=== PATIENT | female | born 1985 | race Caucasian/White ===

== ENCOUNTER 2023-10-10 13:06 | Emergency (ER) | payer BC, SELFPAY ==
[2023-10-10] VITALS (16 sets, daily range): BP systolic 87–113; BP diastolic 71–81; PULSE 75–113; RESP 15–23; TEMP 37.6; O2SAT 85–100; BMI 29.5
--- NOTE | 2023-10-10 13:40 | XR_ITS ---
The [address] [address] Patient Name: CELI JOE MRN: [id number] date: 1985 Sex: F Assigned Patient Location: ER Current Patient Location: ER Accession/Order Number: [id number] Exam Date: 10/10/2023 14:05 Report Date: 10/10/2023 14:39 At the request of: CARLEE GUZMAN Procedure: XR chest 1V EXAMINATION: XR chest 1V HISTORY: chest pain COMPARISON: XR chest 09/04/2018 FINDINGS: LUNGS: Minimal haziness and stranding within right lung base. VASCULATURE: No increased pulmonary vasculature. PLEURA: No pneumothorax, effusion, or pleural thickening. CARDIAC: No cardiomegaly or cardiac silhouette abnormality. MEDIASTINUM: No visible mass or adenopathy. BONES: No fracture or visible bone lesion. OTHER: Negative. XR/XR chest 1V IMPRESSION: 1. Trace amount of right basilar atelectasis versus infiltrates. Electronically authenticated by: UMBERTO JUNG Date: 10/10/2023 14:39
--- NOTE | 2023-10-10 13:41 | ED.CHESTPAI1 ---
HPI - Chest Pain General Chief Complaint: Chest Pain Stated Complaint: CHEST PAIN COVID + Time Seen by Provider: 10/10/23 13:09 Source: patient Mode of arrival: walk-in Limitations: no limitations History of Present Illness HPI narrative: Patient developed symptoms three days ago after exposure to someone with Covid - muscle aches, fatigue, nausea, exertional shortness of breath, anterior chest pain. She said that she is nauseous and having difficulty staying hydrated. She does not have an inhaler at home. Related Data Previous Rx's Medication Instructions Recorded albuterol sulfate 90 mcg/actuation 1 inh inhalation Q6H PRN shortness 10/10/23 aerosol inhaler of breath or wheezing #6.7 grams ondansetron 4 mg disintegrating 4 mg PO Q6H PRN nausea or vomiting 10/10/23 tablet #20 tabs Allergies Allergy/AdvReac Type Severity Reaction Status Date / Time amoxicillin AdvReac Intermediate Verified 10/10/23 13:11 NSAIDS (Non-Steroidal AdvReac Intermediate Verified 10/10/23 13:11 Anti-Inflamma PFSH PFSH Social History Smoking status: Never smoker Exam Narrative Exam Narrative: Nurses notes and vital signs reviewed and patient is not hypoxic. afebrile General: Well-appearing and in no apparent distress. Skin: Warm, dry, no pallor noted. Eye: Pupils are equal, round and EOMI. No scleral icterus. Cardiovascular: Regular Rate and Rhythm without murmur, gallop or rub. Respiratory: No accessory muscle use or respiratory distress. Lungs are clear to auscultation, no wheezing, rales or rhonchi Musculoskeletal: normal ROM, no calf or popliteal tenderness, no lower extremity edema/swelling, Homans negative. GI: Abdomen is soft, non-distended. Normal bowel sounds. No tenderness to palpation. No rebound, guarding, or rigidity noted. Neurological: A&O x4. No cranial nerve dysfunction observed. No truncal ataxia. Moves all extremities. Sensation intact. Psychiatric: Cooperative and interactive. Normal mood and affect. Constitutional Vital Signs, click to edit/add: Last Vital Signs Temp 99.7 F 10/10/23 13:11 Pulse 106 H 10/10/23 15:11 Resp 20 10/10/23 15:11 BP 113/81 10/10/23 14:55 Pulse Ox 96 10/10/23 15:11 O2 Del Method Room Air 10/10/23 13:22 Course Vital Signs Vital signs: Vital Signs Temperature 99.7 F 10/10/23 13:11 Pulse Rate 98 H 10/10/23 13:11 Respiratory Rate 20 10/10/23 13:11 Blood Pressure 109/81 10/10/23 13:11 Pulse Oximetry 99 10/10/23 13:11 Temperature 99.7 F 10/10/23 13:11 Pulse Rate 106 H 10/10/23 15:11 Respiratory Rate 20 10/10/23 15:11 Blood Pressure 113/81 10/10/23 14:55 Pulse Oximetry 96 10/10/23 15:11 Oxygen Delivery Method Room Air 10/10/23 13:22 MDM - Chest Pain MDM Narrative Medical decision making narrative: Patient was placed on cardiac catheterization technologist and EKG obtained. Blood drawn and sent for evaluation. CXR obtained. Patient given NS IVF bolus and IV Zofran. She was also ordered to receive a nebulized albuterol treatment. EKG shows RLL atelectasis, radiologist listed possible infiltrate . No multilobar pneumonia noted. Patient informed of results and was discharged home with prescriptions for albuterol MDI and ODT Zofran. Patient advised to rest, stay at home, practice social distancing, take Motrin and Tylenol for pain and fever if not allergic, stay well hydrated with Gatorade or similar drinks if vomiting or eat as tolerated if not and take any meds as prescribed. Reviewed reasons to return including rapid increase in respiratory rate, shortness of breath, confusion, inability to keep down sips of swallowed liquids for more than 24 hours. Asked patient to encourage any ill contacts to stay home and practice similar advice. Imaging Data Chest x-ray: Radiologist's impression: Patient Name: CELI JOE MRN: [id number] date: 1985 Sex: F Assigned Patient Location: ER Current Patient Location: ER Accession/Order Number: [id number] Exam Date: 10/10/2023 14:05 Report Date: 10/10/2023 14:39 At the request of: CARLEE GUZMAN Procedure: XR chest 1V EXAMINATION: XR chest 1V HISTORY: chest pain COMPARISON: XR chest 09/04/2018 FINDINGS: LUNGS: Minimal haziness and stranding within right lung base. VASCULATURE: No increased pulmonary vasculature. PLEURA: No pneumothorax, effusion, or pleural thickening. CARDIAC: No cardiomegaly or cardiac silhouette abnormality. MEDIASTINUM: No visible mass or adenopathy. BONES: No fracture or visible bone lesion. OTHER: Negative. IMPRESSION: 1. Trace amount of right basilar atelectasis versus infiltrates. Electronically authenticated by: UMBERTO JUNG Date: 10/10/2023 14:39 ECG Data Attestation: I personally reviewed and interpreted this ECG as follows: Interpretation: EKG interpretation: Emergency Department physician interpretation. Normal sinus rhythm at 89bpm. Normal axis, short QTc interval and non-specific T wave changes. No ST segment elevation or depression. Discharge Plan Discharge Chief Complaint: Chest Pain Clinical Impression: COVID, Chest pain, Nausea Patient Disposition: Home, Self-Care Time of Disposition Decision: 14:51 Prescriptions / Home Meds: New albuterol sulfate 90 mcg/actuation HFA aerosol inhaler 1 inh inhalation Q6H PRN (Reason: shortness of breath or wheezing) Qty: 6.7 0RF ondansetron 4 mg tablet,disintegrating 4 mg PO Q6H PRN (Reason: nausea or vomiting) Qty: 20 0RF Instructions: COVID-19 (Coronavirus Disease 2019) (ED), How to Recover from COVID-19 at Home (ED) Stand Alone Forms: Portal Instructions Referrals: Droa Ferraro MD [Primary Care Provider] - 1 week
--- NOTE | 2023-10-10 13:44 | ECG_ITS ---
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
[2023-10-10] MEDS: ONDANSETRON PF 4 MG/2 ML VIAL IV (13:52)
[2023-10-10] MEDS: 0.9 % SODIUM CHLORIDE 1,000 ML 999 ML IV (13:52)
[2023-10-10] MEDS: ALBUTEROL SULFATE 2.5 MG/3 ML VIAL NEB IH (15:11)
--- OUTSIDE RECORDS SUMMARY | 2023-10-29 01:15 | XMS_ITS | CCD ---
Author Name Unknown Address [address] [facility] [facility] [place] [address] Organization [facility] Care Team Providers Care Splitter Hand Name Role Phone DORA JONES Unavailable Unavailable JOSE L, TANESHA S Unavailable Unavailable JOSE L, TANESHA S Unavailable Unavailable JONES, DR DORA Ma Consulting Unavailable JONES, DR DORA Ma Attending Unavailable JONES, DR DORA Ma Admitting Unavailable JONES, DR DORA Ma Primary Care Unavailable JONES, DR DORA Ma Primary Care Unavailable SABA, SYL Admitting Unavailable FABIANA, DR UMBERTO Licona Consulting Unavailable HIGHLANDER, SYL Attending Unavailable HIGHLANDER, SYL Consulting Unavailable SHAIKH PRATHER Consulting Unavailable SHAIKH PRATHER Attending Unavailable JONES, DR DORA Ma Primary Care Unavailable SHAIKH PRATHER Admitting Unavailable JONES, DR DORA Ma Primary Care Unavailable JAYSON MEYER Attending Unavailable JAYSON MEYER Admitting Unavailable JAYSON MEYER Consulting Unavailable Joel Cole Consulting Unavailable JONES, DR DORA Ma Primary Care Unavailable JAYSON MEYER Attending Unavailable JAYSON MEYER Admitting Unavailable TERRI CURRY Attending Unavailable JONES, DR DORA Ma Primary Care Unavailable TERRI CURRY Admitting Unavailable GILBERT, DR DIANA Beckwith Consulting Unavailable TERRI CURRY Consulting Unavailable JONES, DR DORA Ma Consulting Unavailable JONES, DR DORA Ma Attending Unavailable JONES, DR DORA Ma Admitting Unavailable JONES, DR DORA Ma Primary Care Unavailable JONES, DR DORA Ma Consulting Unavailable JONES, DR DORA Ma Attending Unavailable JONES, DR DORA Ma Admitting Unavailable MISC, DR MORSE Consulting Unavailable MISC, DR MORSE Attending Unavailable MISC, DR MORSE Admitting Unavailable JONES, DR DORA Ma Primary Care Unavailable JONES, DR DORA Ma Primary Care Unavailable MIKE CURRY Admitting Unavailable MIKE CURRY Consulting Unavailable MIKE CURRY Attending Unavailable JONES, DR DORA Ma Consulting Unavailable JONES, DR DORA Ma Attending Unavailable JONES, DR DORA Ma Admitting Unavailable JONES, DR DORA Ma Primary Care Unavailable JONES, DR DORA Ma Primary Care Unavailable PALLAVI DILLON Consulting Unavailable PALLAVI DILLON Attending Unavailable PALLAVI DILLON Admitting Unavailable MISC, DR MORSE Attending Unavailable MISC, DR MORSE Admitting Unavailable JONES, DR DORA Ma Referring Unavailable JONES, DR DORA aM Primary Care Unavailable MISC, DR MORSE Consulting Unavailable ZIEBER, DR UMBERTO [place]icon[place] Consulting Unavailable JONES, DR DORA Ma Primary Care Unavailable JAYSON MEYER Attending Unavailable JAYSON MEYER Admitting Unavailable JAYSON MEYER Consulting Unavailable MD Dora Jones Primary Care Provider JAGDISH Alanis Attending Provider Dora Jones Primary Care Unavailable Patel Vasquez Admitting UnavailPatel Bell Attending Unavailken e Sammi Alanis Attending Unavailab Dora Elias Primary Care Unavailable Sammi Alanis Admitting Unavailab Dora Elias Unavailable KariHilary leija Unavailable Allergies Allergy Classification Reported Allergen(s) Allergy Type Date of Onset Reaction(s) Facility (1 source) NSAIDs Drug allergy (disorder) [facility] Repository (1 source) NSAIDs Drug allergy (disorder) 02-17-20 [facility] Repository (8 sources) NSAIDs Propensity to adverse reactions kidney disease [employer] Other (8 sources) Penicillin Drug Allergy Unknown [employer] Other (8 sources) SUMAtriptan Drug Allergy Unknown [employer] Other (4 sources) metroNIDAZOLE Drug Allergy 01-10-20 18 Unknown [employer] Other (4 sources) Pseudoephedrine Drug Allergy 02-16-20 19 Unknown [employer] Other (1 source) Allergies Reconciled Propensity to adverse reactions Unknown [employer] Other (1 source) patient allergy list reviewed by nurse or physicia Propensity to adverse reactions 03-16-20 Comment:Done [employer] Other Medications Current Medications Medication Drug Class(es) Dates Sig (Normalized) Sig (Original) ALPRAZolam 0.25 mg oral tablet (2 sources) Benzodiazepine Start: 05-22-2023 take 1 tablet by mouth twice daily as needed ALPRAZolam 0.25 MG 1 tablet Orally bid prn for 10 days May, Active azithromycin 250 mg oral tablet (10 sources) Macrolide Antimicrobial Start: 03-10-2023 Azithromycin 250 MG Take 2 tablets on first day then 1 tablet daily for 4 days Orally as directed for 5 Sep, Active Start: 03-10-2023 Start: 12-12-2022 Azithromycin 2 50 MG as directed Orally 2 tabs po today, then 1 tab daily x 4 more days for Dec, Active lisdexamfetamine dimesylate 40 mg oral capsule (3 sources) Central Nervous System Stimulant take 1 capsule by mouth every twenty-four hours Vyvanse 40 MG 1 capsule in the morning Orally Once a day Active modafinil 200 mg oral tablet (5 sources) Sympathomimetic-lik e Agent take 1 tablet by mouth every twenty-four hours Modafinil 200 MG 1 tablet once a day Active Modafinil Active Naltrexone (8 sources) Opioid Antagonist Naltrexone Activ e sertraline 50 mg oral tablet (14 sources) Serotonin Reuptake Inhibitor take 1 tablet by mouth every twenty-four hours Zoloft 25 MG 1 tablet Orally Once a day Active take 1 tablet by jasvir th every twenty-four hours Zoloft 50 MG 1 tablet Orally Once a day Active Completed/Discontinued Medications Medication Drug Class(es) Dates Sig (Normalized) Sig (Original) cyclobenzaprine hydrochloride 10 mg oral tablet (2 sources) Muscle Relaxant Start: 08-05-2022 take 1 tablet by mouth three times daily as needed for muscle spasms Cyclobenzaprine HCl 10 MG 1 tab(s) Orally 3 times a day prn muscle spasms Jul, Not-Taking fluconazole 150 mg oral tablet (6 sources) Azole Antifungal Start: 03-10-2023 take 1 tablet by mouth once Diflucan 150 MG 1 tablet Orally once for 10 days March, Not-Taking Start: 03-10-2023 methylPREDNISolone 4 mg oral tablet (8 sources) Corticosteroid Start: 03-10-2023 methylPREDNISo lone 4 MG as directed Orally for 6 days March, Not-Taking Start: 08-05-2022 Medrol 4 MG as directed Orally as directed for 6 days Jul, Not-Taking triamcinolone acetonide 40 mg/ml injectable suspension (8 sources) Corticosteroid Start: 08-05-2022 Kenalog-40 Jul, 40 mg Start: 08-05-2022 Ubrelvy (2 sources) Ubrelvy Not-Taki ng Problems Active Problems Problem Classification Problem Date Documented Da te Episodic/Chronic Anxiety disorders (1 source) Generalized anxiety disorder; Translations: [Generalized anxiety disorder] Chronic Chronic kidney disease (8 sources) Chronic kidney disease; Translations: [Chronic kidney disease, unspecified] Chronic Disorders of lipid metabolism (1 source) Hyperlipidemia; Translations: [Hyperlipidemia, unspecified] Chronic Fluid and electrolyte disorders (2 sources) Hypokalemia; Translations: [Hypokalemia] Onset: 02-17-2018 Episodic Fracture of lower limb (1 source) Stress fracture, right foot, subsequent encounter for fracture with routine healing; Translations: [Stress fracture, right foot, subsequent encounter for fracture with routine healing] Episodic Fracture of lower limb (1 source) Stress fracture, left foot, subsequent encounter for fracture with routine healing; Translations: [Stress fracture, left foot, subsequent encounter for fracture with routine healing] Episodic Genitourinary symptoms and ill-defined conditions (1 source) Proteinuria; Translations: [Proteinuria, unspecified] Episodic Headache; including migraine (5 sources) Chronic migraine without aura, not intractable, without status migrainosus; Translations: [Migraine with aura, not intractable, without status migrainosus] Onset: 11-16-2020 Chronic Immunizations and screening for infectious disease (5 sources) Contact with and (suspected) exposure to other viral communicable diseases; Translations: [Vaccination given] Onset: 10-21-2020 Episodic Joint disorders and dislocations; trauma-related (4 sources) Unspecified internal derangement of right knee; Translations: [UNS INTERNAL DERANGEMENT RIGHT KNEE] Onset: 09-11-2020 Chronic Menstrual disorders (1 source) Excessive and frequent menstruation; Translations: [Excessive and frequent menstruation with regular cycle] Chronic Mood disorders (1 source) Dysthymia; Translations: [Dysthymic disorder] Chronic Multiple sclerosis (5 sources) Multiple sclerosis; Translations: [MULTIPLE SCLEROSIS] Onset: 12-23-2020 Chronic Nephritis; nephrosis; renal sclerosis (7 sources) 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; Translations: [Nephrotic syndrome] Onset: 11-29-2016 Chronic Other aftercare (1 source) History and physical examination, follow-up; Translations: [Encounter for follow-up examination after completed treatment for conditions other than malignant neoplasm] Episodic Other connective tissue disease (5 sources) Pain in left foot; Translations: [PAIN IN LEFT FOOT] Onset: 06-05-2021 Episodic Other connective tissue disease (4 sources) Pain in right foot; Translations: [PAIN IN RIGHT FOOT] Onset: 05-22-2021 Episodic Other connective tissue disease (5 sources) Neuralgia and neuritis, unspecified; Translations: [NEURALGIA AND NEURITIS UNSPECIFIED] Onset: 05-18-2021 Episodic Other connective tissue disease (1 source) Neuralgia; Translations: [Neuralgia and neuritis, unspecified] Episodic Other eye disorders (1 source) Tear film insufficiency; Translations: [Dry eye syndrome of bilateral lacrimal glands] Episodic Other gastrointestinal disorders (1 source) Diarrhea; Translations: [Diarrhea, unspecified] Episodic Other liver diseases (8 sources) Steatosis of liver; Translations: [Fatty (change of) liver, not elsewhere classified] Chronic Other nutritional; endocrine; and metabolic disorders (1 source) Overweight; Translations: [Overweight] Episodic Other nutritional; endocrine; and metabolic disorders (1 source) Body mass index 25-29 - overweight; Translations: [Body mass index (BMI) 28.0-28.9, adult] Episodic Other screening for suspected conditions (not mental disorders or infectious disease) (10 sources) Encounter for screening for lipoid disorders; Translations: [Other abnormal findings on diagnostic imaging of central nervous system] Onset: 02-23-2021 Episodic Other upper respiratory infections (1 source) Chronic sinusitis; Translations: [Chronic sinusitis, unspecified] Chronic Other upper respiratory infections (8 sources) Acute maxillary sinusitis, unspecified; Translations: [Acute sinusitis] Onset: 11-19-2013 Episodic Otitis media and related conditions (3 sources) Acute secretory otitis media; Translations: [Other acute nonsuppurative otitis media, right ear] Onset: 09-04-2018 Episodic Residual codes; unclassified (4 sources) Localized edema; Translations: [LOCALIZED EDEMA] Onset: 05-18-2021 Episodic Residual codes; unclassified (1 source) Family history of diabetes mellitus; Translations: [Family history of diabetes mellitus] Episodic Residual codes; unclassified (1 source) Tobacco user; Translations: [Tobacco use] Episodic Unclassified (1 source) G37.9 - Demyelinating disease of central nervous system, unspecified; Translations: [G37.9 - Demyelinating disease of central nervous system, unspecified] Onset: 09-27-2021 Past or Other Problems Problem Classification Problem Date Documented Date Episodic/Chronic Acute and chronic tonsillitis (1 source) Acute tonsillitis; Translations: [Acute tonsillitis, unspecified] Onset: 04-18-2014 Episodic Acute bronchitis (1 source) Acute bronchitis; Translations: [Acute bronchitis, unspecified] Onset: 01-09-2018 Episodic Bacterial infection; unspecified site (1 source) Bacterial infectious disease; Translations: [Bacterial infection, unspecified, in conditions classified elsewhere and of unspecified site] Onset: 01-21-2017 Episodic Disorders of teeth and jaw (1 source) Other specified disorders of temporomandibular joint; Translations: [Temporomandibular joint disc] Onset: 2014 Episodic Influenza (1 source) Upper respiratory tract infection due to Influenza; Translations: [Influenza due to unidentified influenza virus with other respiratory manifestations] Onset: 12-06-2013 Episodic Malaise and fatigue (5 sources) Other fatigue; Translations: [Fatigue] Onset: 08-21-2015 Episodic Nonspecific chest pain (1 source) Chest pain; Translations: [Chest pain, unspecified] Onset: 02-17-2018 Episodic Other lower respiratory disease (1 source) Cough; Translations: [Cough, unspecified] Onset: 09-04-2018 Episodic Other nervous system disorders (1 source) Ataxia, unspecified; Translations: [ATAXIA UNSPECIFIED] Onset: 02-23-2021 Episodic Other nervous system disorders (1 source) Paresthesia of skin; Translations: [PARESTHESIA OF SKIN] Onset: 01-01-2021 Episodic Other skin disorders (1 source) Localized swelling, mass and lump, unspecified; Translations: [Localized mass] Onset: 04-07-2015 Episodic Residual codes; unclassified (1 source) History of exposure to hazardous bodily fluids; Translations: [Personal history of contact with and (suspected) exposure to potentially hazardous body fluids] Onset: 10-10-2015 Episodic Residual codes; unclassified (1 source) Flushing; Translations: [Flushing] Onset: 07-30-2018 Episodic Unclassified (2 sources) Acquired absence of both cervix and uterus; Translations: [Acquired absence of both cervix and uterus] Onset: 10-28-2017 Episodic Unclassified (1 source) Vaginal yeast infection B37.31 Unclassified (1 source) Suspected COVID-19 virus infection Z20.822 Viral infection (1 source) COVID-19 Results Test Name Value Interpretation Reference Range Facil ity COVID Quick Testingon 2022 Result Negative [facility] [employer] Other COVID/FLU/RSV RT-PCRon 10-09 SARS-CoV-2 (COVID-19) RNA NA A+probe Ql (Unsp spec) Positive [facility] Other COVID/FLU/RSV RT-PCR Negative [facility] [employer] Other MR head/brain wo/w conon MR head/brain wo/w con [facility] [place] [address] MRI Report Signed Patient: Celi Madrid MR#: [id number] : 1985 Acct:[id number] Age/Sex: 36 / F ADM Date: 09/12/22 Loc: MR Room: Type: [facility] Attending Dr: Sammi Alanis APRN, [employer]-C Copies to: Sammi Alanis APRN, CNP Ordering Provider: Sammi Alanis APRN, CNP Date of Service: 09/12/22 MR/MR head/brain wo/w con: G43.909, G37.9 MR head/brain wo/w con 09/12/2022 9:01 PM SIGN AND SYMPTOMS: History of demyelinating disease/clinically isolated syndrome, migraine headaches. Numbness and tingling in bilateral arms PROTOCOL: Multiplanar multisequence MR images of the brain were obtained with and without IV contrast CONTRAST: 14 mL of intravenous ProHance COMPARISON: 09/27/2021 FINDINGS: Extra axial spaces: Age appropriate. Hemorrhage: None. Ventricular system: Within normal limits. Basal cisterns: Within normal limits and not effaced. Cerebral parenchyma: There is a dilated perivascular space in the left deep leslie nuclei. This is unchanged. There are punctate T2/T2 FLAIR hyperintense signal in the right frontal lobe. These are unchanged. No abnormal postcontrast enhancement. Midline shift: None.. Cerebellum: There is 4 mm of downward displacement of the cerebellar tonsils. This is unchanged. Brainstem: Within normal limits. OTHER: Calvarium: Normal marrow signal. Vascular system: Satisfactory flow voids within the anterior and posterior circulation. Visualized Paranasal sinuses: Within normal limits. Visualized Orbits: Within normal limits. Visualized upper cervical spine: Within normal limits. Sella and skull base: Within normal limits. MR/MR head/brain wo/w con IMPRESSION: There are punctate T2/T2 FLAIR hyperintense signal in the right frontal lobe. These are unchanged. No abnormal postcontrast enhancement or diffusion restriction. There is 4 mm of downward displacement of the cerebellar tonsils. This is unchanged. Impression dictated by: Kevin Lombardo M.D.09/13/2022 12:54 PM Dictation Location: [place] [address] Transcribed By: [facility] 09/13/22 1254 Dictated By: Kevin Lombardo II, MD 09/13/22 1238 Signed By: 09/13/22 1254 [facility] ISTAT XRay CREon 09-12-2022 Creatinine [Mass/Vol] 0.7 mg/dL Normal 0.6-1.3 [facility] Comment on above: Result Comment: ER/E SD physician is notified/shown all ISTAT results. Critical values may be confirmed by laboratory testing if deemed necessary by ER attending doctor. Performed By: #### I SCRE #### [address] Point of Care testing , ISTAT GFR ( > 60 Normal [facility] Comment on above: Result Comment: GFR estimated reference range: According to KDOQI guidelines, <60 ml/min/1.73m2 is sufficient to diagnose a patient with chronic kidney disease. PERFORMED BY: [place] [address] PATHOLOGIST MECHANICAL DEVELOPER PROVER NANCY BROWNING M.D. Performed By: #### I SCRE #### [facility] [address] [place] [address] Point of Care testing , ISTAT GFR (Non- Am > 60 Normal [facility] Comment on above: Performed By: #### I SCRE #### [facility] [address] [place] [address] Point of Care testing , MR head/brain wo/w conon MR head/brain wo/w con [facility] Main [place] [address] [place] [address] MRI Report Signed Patient: Celi Madrid MR#: [id number] : 1985 Acct:[id number] Age/Sex: 35 / F ADM Date: 09/27/21 Loc: MR Room: Type: [facility] Attending Dr: Patel Vasquez DO Ordering Provider: Max Vasquez DO Date of Service: 09/27/21 MR/MR head/brain wo/w con: G37.9 Copies to: Max Vasquez DO MR head/brain wo/w con 09/27/2021 11:15 AM SIGN AND SYMPTOMS: Headaches, unsteady gait, frequent falls, bilateral arm numbness, 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 Hemorrhage: None. Ventricular system: Within normal limits. Basal cisterns: Within normal limits and not effaced. Cerebral parenchyma: Similar scattered T2 and T2 FLAIR hyperintense foci are noted in the subcortical white matter, again predominantly in the frontal lobes. No new lesions are identified. There is no diffusion restriction or abnormal postcontrast enhancement to suggest active demyelination. There is a choroid fissure cyst versus dilated perivascular space on the left. This is unchanged. Midline shift: None.. Cerebellum: There is 5 mm of downward displacement of the cerebellar tonsils. This is similar to the prior study. Brainstem: Within normal limits. OTHER: Calvarium: Normal marrow signal. Vascular system: Satisfactory flow voids within the anterior and posterior circulation. Visualized Paranasal sinuses: Within normal limits. Visualized Orbits: Within normal limits. Visualized upper cervical spine: Within normal limits. Sella and skull base: Within normal limits. MR/MR head/brain wo/w con IMPRESSION: Similar scattered T2 and T2 FLAIR hyperintense foci are noted in the subcortical white matter, again predominantly in the frontal lobes. No new lesions are identified. There is no diffusion restriction or abnormal postcontrast enhancement to suggest active demyelination. There is a choroid fissure cyst versus dilated perivascular space on the left. This is unchanged. There is 5 mm of downward displacement of the cerebellar tonsils. This is similar to the prior study. Impression dictated by: Kevin Lombardo M.D.09/27/2021 2:13 PM Dictation Location: [place] [address] Transcribed By: [facility] 09/27/21 1413 Dictated By: Kevin Lombardo II, MD 09/27/21 1359 Signed By: 09/27/21 1413 [facility] CBC AUTO DIFFon 08-14-2021 BASO # 0.0 103/ul Normal 0.0-0.1 [facility] Comment on above: Performed By: #### C MP, LIPID #### [facility] [address] [place] [address] Dr. Sd Jarrett Basophils/100 WBC (Bld) 0.5 % Normal 0.2-2.0 [facility] Comment on above: Performed By: #### C MP, LIPID #### [facility] [address] [place] [address] Dr. Sd Jarrett EO # 0.1 103/ul Normal 0.0-0.7 [facility] Comment on above: Performed By: #### C MP, LIPID #### [facility] [address] [place] [address] Dr. Sd Jarrett Eosinophils/100 WBC (Bld) 1.3 % Normal 0.9-7.0 [facility] Comment on above: Performed By: #### C MP, LIPID #### [facility] [address] [place] [address] Dr. Sd Jarrett Erythrocyte distribution wid th (RBC) [Ratio] 12.5 % Normal 11.0-15.0 [facility] Comment on above: Performed By: #### C MP, LIPID #### [facility] [address] [place] [address] Dr. Sd Jarrett Hematocrit (Bld) [Volume fraction] 40.3 % Normal 3 6.0-48.0 [facility] Comment on above: Performed By: #### C MP, LIPID #### [facility] [address] [place] [address] Dr. Sd Jarrett Hemoglobin (Bld) [Mass/Vol] 12.8 g/dL Normal 12.0-16. 0 [facility] Comment on above: Performed By: #### C MP, LIPID #### [facility] [address] [place] [address] Dr. Sd Jarrett IG # 0.03 10e3/ul Normal 0.00-0.03 [facility] Comment on above: Performed By: #### C MP, LIPID #### [facility] [address] [place] [address] Dr. Sd Jarrett IG % 0.3 % Normal 0.0-0.5 [facility] Comment on above: Performed By: #### C MP, LIPID #### [facility] [address] [place] [address] Dr. Sd Jarrett LYMPH # 2.3 103/ul Normal 1.2-3.8 [facility] Comment on above: Performed By: #### C MP, LIPID #### [facility] [address] [place] [address] Dr. Sd Jarrett Lymphocytes/100 WBC (Bld) 26.7 % Normal 20.5-60.0 [facility] Comment on above: Performed By: #### C MP, LIPID #### [facility] [address] [place] [address] Dr. Sd Jarrett MANUAL DIFF REQ NO Normal [facility] Comment on above: Performed By: #### C MP, LIPID #### [facility] [address] [place] [address] [address] Sd Jarrett MCH (RBC) [Entitic mass] 29.3 pg Normal 26.7-34.0 [facility] Comment on above: Performed By: #### C MP, LIPID #### [facility] [address] [place] [address] Dr. Sd Jarrett MCHC (RBC) [Mass/Vol] 31.8 g/dL Normal 29.9-35.2 [facility] Comment on above: Performed By: #### C MP, LIPID #### [facility] [address] [place] [address] Dr. Sd Jarrett MCV (RBC) [Entitic vol] 92.2 fL Normal 81.0-99.0 [facility] Comment on above: Performed By: #### C MP, LIPID #### [facility] [address] [place] [address] Dr. Sd Jarrett MONO # 0.5 103/ul Normal 0.3-0.[address] [facility] Comment on above: Performed By: #### C MP, LIPID #### [facility] [address] [place] [address] Dr. Sd Jarrett Monocytes/100 WBC (Bld) 5.8 % Normal 1.7-12.0 [facility] Comment on above: Performed By: #### C MP, LIPID #### [facility] [address] [place] [address] Dr. Sd Jarrett NEUT # 5.6 103/ul Normal 1.4-6.[address] [facility] Comment on above: Performed By: #### C MP, LIPID #### [facility] [address] [place] [address] Dr. Sd Jarrett Neutrophils/100 WBC (Bld) 65.4 % Normal 43.0-75.0 [facility] Comment on above: Performed By: #### C MP, LIPID #### [facility] [address] [address] [address] Sd Jarrett Platelet mean volume (Bld) [Entitic vol] 9.9 fL Normal 9.5-13.5 [facility] Comment on above: Performed By: #### C MP, LIPID #### [facility] [address] [address] [address] Sd Jarrett PLT 315 103/ul Normal 150-[address] [facility] Comment on above: Performed By: #### C MP, LIPID #### [facility] [address] [place] [address] Dr. Sd Jarrett RBC 4.37 106/ul Normal 4.20-5.40 [facility] Comment on above: Performed By: #### C MP, LIPID #### [facility] [address] [place] [address] Dr. Sd Jarrett WBC 8.6 103/ul Normal 4.0-11.0 [facility] Comment on above: Performed By: #### C MP, LIPID #### [facility] [address] [place] [address] Dr. Sd Jarrett LIPID PROFILEon 08-14-2021 CHOL-HDL RATIO NORM SEE BELOW Normal [facility] Comment on above: Result Comment: 3.3 - 4.4 LOW RISK 4.4 - 7.1 AVERAGE RISK 7.1 - 11.0 MODERATE RISK >11.0 HIGH RISK Performed By: #### C MP, LIPID #### [facility] [address] [place] [address] Dr. Sd Jarrett Cholesterol [Mass/Vol] 294 mg/dL Critically high <=200 [facility] Comment on above: Performed By: #### C MP, LIPID #### [facility] [address] [place] [address] Dr. Sd Jarrett Cholesterol in HDL [Mass/Vol] 64 mg/dL Normal [facility] Comment on above: Performed By: #### C MP, LIPID #### [facility] [address] [address] [address] Sd Jarrett Cholesterol in LDL [Mass/Vol] 192.4 mg/dL Normal [facility] Comment on above: Performed By: #### C MP, LIPID #### [facility] [address] [place] [address] Dr. Sd Jarrett Cholesterol.total/Cholestero l in HDL [Mass ratio] 4.6 {ratio} Normal The [facility] Comment on above: Performed By: #### C MP, LIPID #### [facility] [address] [place] [address] Dr. Sd Jarrett HDL NORMAL > or = 60 mg/dl - LO W CARDIOVASCULAR RISK <40 mg/dl - HIGH CARDIOVASCULAR RISK Normal The [facility] Comment on above: Performed By: #### C MP, LIPID #### [facility] [address] [place] [address] Dr. Sd Jarrett LDL CALC NORMAL SEE BELOW Normal The [facility] Comment on above: Result Comment: <100 mg/dl OPTIMAL 100 - 129 mg/dl NEAR OR ABOVE OPTIMAL 130 - 159 mg/dl BORDERLINE HIGH 160 - 189 mg/dl HIGH >190 mg/dl VERY HIGH Performed By: #### C MP, LIPID #### [facility] [address] [place] [address] Dr. Sd Jarrett Triglyceride [Mass/Vol] 188 mg/dL Critically high <=150 [facility] Comment on above: Performed By: #### C MP, LIPID #### [facility] [address] [place] [address] Dr. Sd Jarrett VLDL CALC 37.6 mg/dL Normal The [facility] Comment on above: Performed By: #### C MP, LIPID #### [facility] [address] [address] [address] Sd Jarrett PROF 14(COMP METB)on 021 Albumin [Mass/Vol] 3.4 g/dL Critically low 3.5-5.0 Th e [facility] Comment on above: Performed By: #### C MP, LIPID #### [facility] [address] [place] [address] Dr. Sd Jarrett Albumin/Globulin [Mass ratio] 0.9 {ratio} Normal [facility] Comment on above: Performed By: #### C MP, LIPID #### [facility] [address] [place] [address] Dr. Sd Jarrett ALP [Catalytic activity/Vol] 69 U/L Normal 38-126 [facility] Comment on above: Performed By: #### C MP, LIPID #### [facility] [address] [place] [address] Dr. Sd Jarrett ALT [Catalytic activity/Vol] 32 U/L Normal 9-52 [facility] Comment on above: Performed By: #### C MP, LIPID #### [facility] [address] [place] [address] Dr. Sd Jarrett Anion gap [Moles/Vol] 9.4 mmol/L Normal [facility] Comment on above: Performed By: #### C MP, LIPID #### [facility] [address] [place] [address] Dr. Sd Jarrett AST [Catalytic activity/Vol] 16 U/L Normal 14-36 [facility] Comment on above: Performed By: #### C MP, LIPID #### [facility] [address] [place] [address] Dr. Sd Jarrett Bilirubin [Mass/Vol] 0.2 mg/dL Normal 0.2-1.3 [facility] Comment on above: Performed By: #### C MP, LIPID #### [facility] [address] [place] [address] Dr. Sd Jarrett Calcium [Mass/Vol] 8.9 mg/dL Normal 8.4-10.2 [facility] Comment on above: Performed By: #### C MP, LIPID #### [facility] [address] [place] [address] Dr. Sd Jarrett Chloride [Moles/Vol] 100 mmol/L Normal 98-107 [facility] Comment on above: Performed By: #### C MP, LIPID #### [facility] [address] [place] [address] Dr. Sd Jarrett CO2 [Moles/Vol] 30.5 mmol/L Critically high 22.0-30.0 [facility] Comment on above: Performed By: #### C MP, LIPID #### [facility] [address] [address] [address] Sd Jarrett Creatinine [Mass/Vol] 0.60 mg/dL Normal 0.52-1.04 [facility] Comment on above: Performed By: #### C MP, LIPID #### [facility] [address] [address] [address] Sd Jarrett EGFR-AF NEPALESE >60 Normal >=60 [facility] Comment on above: Performed By: #### C MP, LIPID #### [facility] [address] [address] [address] Sd Jarrett EGFR-NON AF NEPALESE >60 Normal >=60 [facility] Comment on above: Performed By: #### C MP, LIPID #### [facility] [address] [address] [address] Sd Jarrett Globulin (S) [Mass/Vol] 4.0 g/dL Normal [facility] [place] Comment on above: Performed By: #### C MP, LIPID #### [facility] [address] [address] [address] Sd Jarrett Glucose [Mass/Vol] 76 mg/dL Normal 74-106 [facility] Comment on above: Performed By: #### C MP, LIPID #### [facility] [address] [address] [address] Sd Jarrett Potassium [Moles/Vol] 3.9 mmol/L Normal 3.4-5.0 [facility] Comment on above: Performed By: #### C MP, LIPID #### [facility] [address] [address] [address] Sd Jarrett Protein [Mass/Vol] 7.4 g/dL Normal 6.1-8.2 [facility] Comment on above: Performed By: #### C MP, LIPID #### [facility] [address] [address] [address] Sd Jarrett Sodium [Moles/Vol] 136 mmol/L Critically low 137-145 Th e [facility] Comment on above: Performed By: #### C MP, LIPID #### [facility] [address] [place], [place] [address] Dr. Sd Jarrett Urea nitrogen [Mass/Vol] 10.0 mg/dL Normal 7.0-17.0 [facility] Comment on above: Performed By: #### C MP, LIPID #### [facility] [address] [place], [place] [address] Dr. Sd Jarrett Urea nitrogen/Creatinine [Mass ratio] 16.7 mg/mg Normal [facility] Comment on above: Performed By: #### C MP, LIPID #### [facility] [address] [place], [place] [address] Dr. Sd Jarrett XR FOOT LIAM MIN 3 VIEWSon XR FOOT LIAM MIN 3 VIEWS EXAMINATION: XR FOOT LIAM MIN 3 VIEWS HISTORY: Pain in both feet COMPARISON: XR foot bilateral 06/12/2021 FINDINGS: RIGHT FINDINGS: BONES: Increasing mild cortical thickening involving the medial mid diaphysis of the third metatarsal. Normal alignment is maintained. SOFT TISSUES: No visible soft tissue swelling. OTHER: Negative. LEFT FINDINGS: BONES: No significant arthropathy or acute abnormality. SOFT TISSUES: No visible soft tissue swelling. OTHER: Negative. IMPRESSION: RIGHT CONCLUSION: 1. Healing stress fracture of third metatarsal. LEFT CONCLUSION: 1. No acute bone abnormality. Electronically authenticated by: UMBERTO JUNG Date: 2021-07-05 14:12 Normal [facility] XR FOOT LIAM MIN 3 VIEWSon XR FOOT LIAM MIN 3 VIEWS EXAM: XR FOOT LIAM MIN 3 VIEWS HISTORY: Pain in both feet COMPARISON: AP, oblique and lateral views of bilateral foot were obtained TECHNIQUE: AP, oblique, calcaneal and lateral views of bilateral feet were obtained. FINDINGS: Right foot: There is stress fracture at the mid diaphysis of the third metatarsal bone as seen by periosteal reaction, immediately. Left foot: No evidence of an acute fracture, subluxation or significant degenerative changes. IMPRESSION: Right foot:Stress fracture is seen at the mid diaphysis of the third metatarsal bone. Left foot: Unremarkable Electronically authenticated by: JOEL COLE Date: 2021-06-12 15:05 Normal The [facility] XR FOOT LIAM MIN 3 VIEWSon XR FOOT LIAM MIN 3 VIEWS EXAMINATION: XR FOOT LIAM MIN 3 VIEWS HISTORY: Pain in both feet ; acute dorsal midfoot swelling, heel pain when weightbearing COMPARISON: No relevant comparison available. FINDINGS: RIGHT FINDINGS: BONES: No significant arthropathy or acute abnormality. SOFT TISSUES: No visible soft tissue swelling. OTHER: Negative. LEFT FINDINGS: BONES: No significant arthropathy or acute abnormality. SOFT TISSUES: No visible soft tissue swelling. OTHER: Negative. IMPRESSION: RIGHT CONCLUSION: Normal examination. LEFT CONCLUSION: Normal examination. Electronically authenticated by: UMBERTO JUNG Date: 2021-05-23 08:04 Normal The [facility] CBC AUTO DIFFon 05-18-2021 BASO # 0.0 103/ul Normal 0.0-0.1 [facility] Comment on above: Performed By: #### C BC #### [facility] [address] [place] [address] Woody Duenas Basophils/100 WBC (Bld) 0.4 % Normal 0.2-2.0 [facility] [place] Comment on above: Performed By: #### C BC #### [facility] [address] [place] [address] Woody Duenas EO # 0.1 103/ul Normal 0.0-0.[address] [facility] Comment on above: Performed By: #### C BC #### [facility] [address] [place], [place] [address] Woody Duenas Eosinophils/100 WBC (Bld) 1.4 % Normal 0.9-7.0 [facility] Comment on above: Performed By: #### C BC #### [facility] [address] [place], [place] [address] Woody Duenas Erythrocyte distribution wid th (RBC) [Ratio] 12.4 % Normal 11.0-15.0 [facility] Comment on above: Performed By: #### C BC #### [facility] [address] [place] [address] Woody Duenas Hematocrit (Bld) [Volume fraction] 40.1 % Normal 3 6.0-48.0 [facility] Comment on above: Performed By: #### C BC #### [facility] [address] [place], [place] [address] Woody Yulissa Hemoglobin (Bld) [Mass/Vol] 13.2 g/dL Normal 12.0-16. 0 [facility] Comment on above: Performed By: #### C BC #### [facility] [address] [id number] Woody Yulissa IG # 0.03 10e3/ul Normal 0.00-0.03 [facility] Comment on above: Performed By: #### C BC #### [facility] [address] [id number] Woody Yulissa IG % 0.4 % Normal 0.0-0.[address] [facility] Comment on above: Performed By: #### C BC #### [facility] [address] [place], [place] [id number] Woody Yulissa LYMPH # 2.1 103/ul Normal 1.2-3.8 [facility] Comment on above: Performed By: #### C BC #### [facility] [address] [place], [place] [id number] Woody Duenas Lymphocytes/100 WBC (Bld) 29.1 % Normal 20.5-60.0 [facility] Comment on above: Performed By: #### C BC #### [facility] [address] [place], [place] [id number] Woody Duenas MANUAL DIFF REQ NO Normal [facility] Comment on above: Performed By: #### C BC #### [facility] [address] [place] [address] Woody Yulissa MCH (RBC) [Entitic mass] 29.5 pg Normal 26.7-34.0 [facility] Comment on above: Performed By: #### C BC #### [facility] [address] [phone] Woodyanika Mclcouden MCHC (RBC) [Mass/Vol] 32.9 g/dL Normal 29.9-35.2 [facility] Comment on above: Performed By: #### C BC #### [facility] [address] [place], [place] [address] Woody Yulissa MCV (RBC) [Entitic vol] 89.7 fL Normal 81.0-99.0 [facility] [place] Comment on above: Performed By: #### C BC #### [facility] [address] [phone] Woody Yulissa MONO # 0.4 103/ul Normal 0.3-0.8 The [facility] Comment on above: Performed By: #### C BC #### [facility] [address] [phone] Woody Yulissa Monocytes/100 WBC (Bld) 5.6 % Normal 1.7-12.0 [facility] [place] Comment on above: Performed By: #### C BC #### [facility] [address] [place] [address] Woody Yulissa NEUT # 4.6 103/ul Normal 1.4-6.5 The [facility] Comment on above: Performed By: #### C BC #### [facility] [address] [place], [place] [address] Woody Yulissa Neutrophils/100 WBC (Bld) 63.1 % Normal 43.0-75.0 [facility] Comment on above: Performed By: #### C BC #### [facility] [address] [place], [place] [id number] Woody Yulissa Platelet mean volume (Bld) [Entitic vol] 9.3 fL Critically low 9.5-13.5 The [facility] Comment on above: Performed By: #### C BC #### [facility] [address] [place], [place] [id number] Woody Yulissa PLT 278 103/ul Normal 150-450 The [facility] Comment on above: Performed By: #### C BC #### [facility] [address] [place], [place] [phone] Woody Yulissa RBC 4.47 106/ul Normal 4.20-5.40 [facility] Comment on above: Performed By: #### C BC #### [facility] [address] [place], [place] [address] Woody Yulissa WBC 7.3 103/ul Normal 4.0-11.0 The [facility] Comment on above: Performed By: #### C BC #### [facility] [address] [place], [place] [address] Woody Yulissa FERRITINon 05-18-2021 Ferritin [Mass/Vol] 75.0 ng/mL Normal 6.2-137.0 [facility] Comment on above: Performed By: #### C MP, LIPID #### [facility] [address] [place], [place] [address] Dr. Sd Jarrett RENAL FUNCTION PANELon 05-18 Albumin [Mass/Vol] 3.4 g/dL Critically low 3.5-5.0 [facility] Comment on above: Performed By: #### R ENAL ####[facility] [address] [place], [place] [address]Qcozgb Yulissa Calcium [Mass/Vol] 8.9 mg/dL Normal 8.4-10.2 [facility] Comment on above: Performed By: #### R ENAL ####[facility] [address] [phone] Yulissa Chloride [Moles/Vol] 105 mmol/L Normal 98-107 [facility] Comment on above: Performed By: #### R ENAL ####[facility] [address] [place], [place] [address]Hgkdok Yulissa CO2 [Moles/Vol] 27.6 mmol/L Normal 22.0-30.0 The [facility] Comment on above: Performed By: #### R ENAL ####[facility] [address] [place], [place] [address]Hufunp Yulissa Creatinine [Mass/Vol] 0.64 mg/dL Normal 0.52-1.04 [facility] Comment on above: Performed By: #### R ENAL ####[facility] [address] [place], [place] [address]Mzpkai Yulissa EGFR-AF NEPALESE >60 Normal >=60 The [facility] Comment on above: Performed By: #### R ENAL ####[facility] [address] [place], [place] [address]Ibuvpi Yulissa EGFR-NON AF NEPALESE >60 Normal >=60 [facility] Comment on above: Performed By: #### R ENAL ####[facility] [address] [place], [place] [address]Sctane Yulissa Glucose [Mass/Vol] 62 mg/dL Critically low 74-106 [facility] Comment on above: Performed By: #### R ENAL ####[facility] [address] [place], [place] [address]Npjfer Yulissa Phosphate [Mass/Vol] 2.4 mg/dL Critically low 2.5-4.5 [facility] Comment on above: Performed By: #### R ENAL ####[facility] [address] [place], [place] [address]Rxybuh Yulissa Potassium [Moles/Vol] 4.1 mmol/L Normal 3.4-5.0 [facility] Comment on above: Performed By: #### R ENAL ####[facility] [address] [place] [address]Jexpyv Yulissa Sodium [Moles/Vol] 141 mmol/L Normal 137-145 [facility] Comment on above: Performed By: #### R ENAL ####[facility] [address] [place], [place] [address]Bwiaze Yulissa Urea nitrogen [Mass/Vol] 12.0 mg/dL Normal 7.0-17.0 [facility] Comment on above: Performed By: #### R ENAL ####[facility] [address] [place], [place] [address]Llzldd Yulissa UA RANDOM W/MICROSCOPICon BACTERIA SMALL Abnormal NONE SEEN [facility] Comment on above: Performed By: #### U AMIC ####[facility] [address] [place], [place] [address]Wfpmse Yulissa Bilirubin Ql (U) Negative Normal NEGATIVE The [facility] Comment on above: Performed By: #### U AMIC ####[facility] [address] [place], [place] [address]Rsvkei Yulissa CAST NONE SEEN Normal NONE SEEN The [facility] Comment on above: Performed By: #### U AMIC ####[facility] [address] [place], [place] [address]Amulhn Yulissa Clarity (U) CLEAR Normal CLEAR The [facility] Comment on above: Performed By: #### U AMIC ####[facility] [address] [place], [place] [address]Rztmnc Yulissa Color (U) YELLOW Normal YELLOW [facility] Comment on above: Performed By: #### U AMIC ####[facility] [address] [phone] Yulissa Crystals LM Nom (Urine sed) NONE SEEN Normal NONE SEE N [facility] Comment on above: Performed By: #### U AMIC ####[facility] [address] [phone] Yulissa Epithelial cells LM Ql (Urin e sed) MODERATE Abnormal NONE SEEN /RARE The [facility] Comment on above: Performed By: #### U AMIC ####[facility] [address] [place], [place] [address]Gerken Yulissa Glucose Ql (U) Negative Normal NEGATIVE The [facility] Comment on above: Performed By: #### U AMIC ####[facility] [address] [place], [place] [address]Vfssif Yulissa Hemoglobin Ql (U) MODERATE Abnormal NEGATIVE The [facility] Comment on above: Performed By: #### U AMIC ####[facility] [address] [place], [place] [address]Bhbjkd Yulissa Ketones Ql (U) Negative Normal NEGATIVE The [facility] Comment on above: Performed By: #### U AMIC ####[facility] [address] [phone] Yulissa LEUKOCYTES Negative Normal NEGATIVE The [facility] Comment on above: Performed By: #### U AMIC ####[facility] [address] [place], [place] [address]Gerken Yulissa MUCOUS MODERATE Abnormal NONE SEEN The [facility] Comment on above: Performed By: #### U AMIC ####[facility] [address] [phone] Yulissa Nitrite Ql (U) Negative Normal NEGATIVE The [facility] Comment on above: Performed By: #### U AMIC ####[facility] N[address] Yulissa pH (U) 5.5 [pH] Normal 5-9 The [facility] Comment on above: Performed By: #### U AMIC ####[facility] Z[address] Yulissa RBC 0-2 Normal 0-2 The [facility] Comment on above: Performed By: #### U AMIC ####[facility] [address] Yulissa SPEC GRAVITY >=1.030 Abnormal 1.005-<=1.025 The [facility] Comment on above: Performed By: #### U AMIC ####[facility] J[address]rulyx[address] Yulissa UA PROTEIN 100 mg/dl Abnormal NEGATIVE/ TRACE The [facility] Comment on above: Performed By: #### U AMIC ####[facility] [address] [phone] Yulissa Urobilinogen Qn (U) 0.2 {Ratna'U}/dL Normal 0.2 - 1. 0 The [facility] Comment on above: Performed By: #### U AMIC ####[facility] [address] Yulissa WBC 0-2 Abnormal NONE SEEN The [facility] Comment on above: Performed By: #### U AMIC ####[facility] I[address] Yulissa URINE T PROTEIN CREAT RATIOo n 05-18-2021 Protein (U) [Mass/Vol] 98.3 mg/dL Critically high <=12.0 [facility] Comment on above: Performed By: #### C MP, LIPID #### [facility] [address] [address] [address] Sd Jarrett UR PROT CREAT RAT 0.41 Normal [facility] Comment on above: Performed By: #### C MP, LIPID #### [facility] [address] [address] [address] Sd Jarrett URINE CREAT 240.76 mg/dL Normal 20.00-300.00 [facility] Comment on above: Performed By: #### C MP, LIPID #### [facility] [address] [address] [address] Sd Jarrett QUANTIFERON TB GOLD PLUS (NO N-INC)on 05-09-2021 Comment Incubation performed. Normal The [facility] Comment on above: Performed By: #### Q NTTBG ####[facility] [address] [place] [address] Yulissa Criteria Comment Normal The [facility] Comment on above: Result Comment: The QuantiFERON-TB Gold Plus result is determined by subtracting the Nil value from either TB antigen (Ag) tube. The mitogen tube serves as a control for the test. Performed By: #### Q NTTBG ####[facility] [address] [place] [address] Yulissa Mitogen Value >10.00 Normal The [facility] [place] Comment on above: Performed By: #### Q NTTBG ####[facility] T[address] Yulissa Nill Value 0.00 IU/mL Normal The [facility] Comment on above: Performed By: #### Q NTTBG ####[facility] X[address] Yulissa Quantiferon Gold Plus Negative Normal Negative The [facility] Comment on above: Result Comment: Chem iluminescence immunoassay methodology Performed By: #### Q NTTBG ####[facility] [address] [place] [address] Yulissa TB1 Ag Value 0.00 IU/mL Normal [facility] Comment on above: Performed By: #### Q NTTBG ####[facility] [address] [address]Ger[address] Yulissa TB2 Ag Value 0.00 IU/mL Normal [facility] Comment on above: Performed By: #### Q NTTBG ####[facility] [address] [place] [address] Yulissa HEPATITIS B SURFACE ANTIBODY , QUANTon 05-08-2021 Hepatitis B Surf AB Quant 688.8 mIU/mL Normal Immunity >9.9 [facility] Comment on above: Result Comment: Stat us of Immunity Anti-HBs Level Inconsistent with Immunity 0.0 - 9.9 Consistent with Immunity >9.9 Performed By: #### H EPBSRF ####[facility] [address] [place] [address] Yulissa MMR IMMUNITYon 05-08-2021 Mumps Abs, IgG <9.0 Critically low Immune >10.9 [facility] Comment on above: Result Comment: Nega tive <9.0 Equivocal 9.0 - 10.9 Positive >10.9 A positive result generally indicates past exposure to Mumps virus or previous vaccination. Performed By: #### M MRIMMU ####[facility] [address] [place] [address] Yulissa Rubella Antibodies, IgG 3.59 index Normal Immune >0.99 [facility] Comment on above: Result Comment: Non- immune <0.90 Equivocal 0.90 - 0.99 Immune >0.99 Performed By: #### M MRIMMU ####[facility] [address] [place] [address] Yulissa Rubeola Ab, IgG 280.0 AU/mL Normal Immune >16.4 The [facility] Comment on above: Result Comment: Nega tive <13.5 Equivocal 13.5 - 16.4 Positive >16.4 Presence of antibodies to Rubeola is presumptive evidence of immunity except when acute infection is suspected. Performed By: #### M MRIMMU ####[facility] [address] [place] [id number] Yulissa VARICELLA IGG ABon 1 Varicella Zoster IgG 639 index Normal Immune >165 [facility] Comment on above: Result Comment: Nega tive <135 Equivocal 135 - 165 Positive >165 A positive result generally indicates exposure to the pathogen or administration of specific immunoglobulins, but it is not indication of active infection or stage of disease. Performed By: #### C MP, LIPID #### [facility] [address] [place] [address] Dr. Sd Jarrett THYROGLOBULIN ABon 1 Thyroglobulin Antibody <1.0 Normal 0.0-0.9 [facility] Comment on above: Result Comment: Thyr oglobulin Antibody measured by valuklik Methodology Performed By: #### T HYGAB #### [facility] [address] [place] [address] Woody Mcclouden FREE T4on 03-23-2021 Free T4 [Mass/Vol] 0.91 ng/dL Normal 0.78-2.19 [facility] Comment on above: Performed By: #### C ARDEN, LIPID #### [facility] [address] [place] [address] Dr. Sd Jarrett TSHon 03-23-2021 TSH 1.710 uIU/mL Normal 0.470-4.680 [facility] [place] Comment on above: Performed By: #### T SH #### [facility] [address] [place] [address] Woody Duenas TSH RANGE SEE BELOW Normal The [facility] Comment on above: Result Comment: <0.3 4 UIU/ml HYPERTHYROID 0.34-5.60 UIU/ml EUTHYROID >5.60 UIU/ml HYPOTHYROID Performed By: #### T SH #### [facility] [address] [place] [address] Woody Yulissa MYELIN BASIC PROT CSFon 04- Myelin Basic Protein, CSF 2.1 ng/mL Normal 0.0-3.7 [facility] Comment on above: Performed By: #### M BPCSF ####[facility] [address] [id number] Yluissa IMMUNOGLOBULIN G SYNTHESIS R ATE, CSFon 02-20-2021 Albumin [Mass/Vol] 3.7 g/dL Critically low 3.8-4.8 [facility] Comment on above: Performed By: #### I MMUNGC ####[facility] [address] [place], [place] [address]Brecju Yulissa Albumin, CSF 13 mg/dL Normal 11-48 [facility] Comment on above: Performed By: #### I MMUNGC ####[facility] [address] [place], [place] [address]Pgedrv Yulissa IgG, Quant, CSF 1.9 mg/dL Normal 0.0-8.6 [facility] Comment on above: Performed By: #### I MMUNGC ####[facility] [address] [place] [id number] Yulissa IgG, Syn Rate,CSF -1.5 mg/day Normal 9.9 TO +3.3 [facility] Comment on above: Performed By: #### I MMUNGC ####[facility] [address] [place] [id number] Yulissa Immunoglobulin G, Qn, Serum 935 mg/dL Normal 586-1602 [facility] Comment on above: Performed By: #### I MMUNGC ####[facility] [address] [place], [place] [address]Jstnzi Yulissa OILGOCLONAL BANDING CSFon Oligoclonal Bands Comment Normal The [facility] Comment on above: Result Comment: Zero (0) oligoclonal bands were observed in the CSF. . Interpretation: Criteria for Positivity: Four (4) or more oligoclonal bands observed only in the CSF have been shown to be most consistent with MS using our method. [Tiffanie , Calvin EL, Warren COLLINS, and Zachery JA: Cerebrospinal Fluid Oligoclonal Bands in the Diagnosis of Multiple Sclerosis. Am J Clin Pathol 120(5):672-675, 2003]. . Oligoclonal bands that are present only in the CSF have been associated with a variety of inflammatory brain diseases such as multiple sclerosis (MS), subacute encephalitis, neurosyphilis, etc. Increased IgG in the CSF is not specific for MS, but is an indication of chronic neural inflammation. Clinical correlation indicated. . Approximately 2-3% of clinically confirmed MS patients show little or no evidence of oligoclonal bands in the CSF; however oligoclonal bands may develop as the disease progresses. . Oligoclonal Banding testing performed using Isoelectric Focusing (IEF) and immunoblotting methodology. Performed By: #### C MP, LIPID #### [facility] [address] [address] [address] Sd Jarrett CELL COUNT CSFon 02-16-2021 CSF CLARITY CLEAR Normal CLEAR [facility] Comment on above: Performed By: #### C CCSF ####[facility] [address] Yulissa Performed By: #### C MP, LIPID #### [facility] [address] [place] [address] Dr. Sd Jarrett CSF COLOR COLORLESS Normal COLORLESS The [facility] Comment on above: Performed By: #### C CCSF ####[facility] [address] Yulissa Performed By: #### C MP, LIPID #### [facility] [address] [address] [address] Sd Jarrett CSF RBC 11 cubic mm Normal [facility] Comment on above: Performed By: #### C CCSF ####[facility] [address] [place] [address] Yulissa CSF RBC 1 cubic mm Normal [facility] Comment on above: Performed By: #### C MP, LIPID #### [facility] [address] [place] [address] Dr. Sd Jarrett CSF VOLUME 10.0 mL Normal [facility] Comment on above: Performed By: #### C CCSF ####[facility] [address] Yulissa Performed By: #### C MP, LIPID #### [facility] [address] [address] [address] Sd Jarrett CSF WBC 0 cubic mm Normal [facility] Comment on above: Performed By: #### C CCSF ####[facility] [address] Yulissa Performed By: #### C MP, LIPID #### [facility] [address] [address] [address] Sd Jarrett CSF WBC HEADER REFERENCE RANGE 5-10 WBC/cubic mm = BORDERLINE Normal The [facility] Comment on above: Performed By: #### C CCSF ####[facility] [address] [place] [address] Yulissa Performed By: #### C MP, LIPID #### [facility] [address] [address] [address] Sd Jarrett GLUCOSE CSFon 02-16-2021 GLUCOSE CSF 59 mg/dL Normal 40-70 [facility] Comment on above: Performed By: #### G LUCSF, PROTCSF ####[facility] [address] [place] [address] Yulissa LAB TESTINGon 02-16-2021 RECV HEADER SEE SCANNED REPORT IN HPF Normal [facility] Comment on above: Performed By: #### M ISC ####[facility] [address] [place] [address] Yulissa REV FROM REF LAB 02/16/2021 [facility] Comment on above: Performed By: #### M ISC ####[facility] [address] Yulissa SENT TO REF LAB 02/16/2021 [facility] Comment on above: Performed By: #### M ISC ####[facility] [address] Yulissa RECV HEADER SEE SCANNED REPORT IN HPF Normal [facility] Comment on above: Performed By: #### M ISC ####[facility] [address] [place], [place] [address]Izxpgv Yulissa REV FROM REF LAB 02/21/2021 Normal [facility] Comment on above: Performed By: #### M ISC ####[facility] [address] [place], [place] [address]Lodxhw Karen SENT TO REF LAB 02/17/2021 Normal [facility] Comment on above: Performed By: #### M ISC ####[facility] [address] [place], [place] [address]Atnreq Yulissa PROTEIN CSFon 02-16-2021 TOT PROT CSF 29 mg/dL Normal 12-60 [facility] Comment on above: Performed By: #### G LUCSF, PROTCSF ####[facility] [address] [place], [place] [address]Kerrki Yulissa CNOVon 02-13-2021 CNOV Office Visit (NEMEFV ) CELI MADRID ([id number]) 1985 F Date Time Provider Department 02/13/21 10:00 AM HARDIK GARCIA During your visit today, we recorded the following information about you: Temperature Pulse Blood pressure Weight 97.8 degrees 91/minute 114/75 71.6 kg Height 1.575 m Hardik Garcia MD 02/13/2021 11:20 AM [facility] NEW EVALUATION Referral source: Dora Jones MD [facility] [facility] [id number] PRINCIPAL NEUROLOGIC DIAGNOSIS: Right arm pain, cognitive complaints HISTORY OF ILLNESS: Consultation on/Evaluation of this 35 year old right-handed woman was requested regarding multiple sclerosis diagnosis. The patient was accompanied by her . Previous records (physician notes, laboratory reports, and radiology reports) and imaging studies were reviewed and summarized. My findings and recommendations will be communicated back to the patient's physician(s) either via the shared medical record or mail. Follow-up is expected to be with me at the [facility]. Ms. Madrid notes that in 2016, she had a lot of fatigue and was getting sick frequently. She was sent to an timber sizer operator and was given the pneumonia vaccine but no further workup was done. In 2019, Ms. Madrid began experiencing migraines, which was a completely new phenomenon for her. She began experiencing a crescent austin type visual aura. Her arms and hands began to get tingly and numb. She was referred to a neurologist and an EMG was done, which was normal. She was then sent for a brain MRI, which showed lesions suspicious for MS. She also had a thoracic MRI. Ms. Madrid also notes that she mixes up her words a lot and has had some trouble with retaining new information. She also reports that her right arm constantly feels like it is on fire. It intensifies when she is stressed or anxious. She also reports that she has had some tingling in her legs. She has followed with Dr. Castillo in [place] at the [facility]. He recommended Ocrevus. She has discussed this with her liver doctor and gotten the ok to proceed with it. Dr. Castillo has suggested a lumbar puncture, but that has not been done yet. Prior to the above, she denies any history of episodic neurologic impairment that might be consistent with ORGAN PIPE MAKER METAL demyelination, such as unilateral visual loss, focal weakness/numbness, slurred speech or facial droop. 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 No current facility-administered medications for this visit. Social History Tobacco Use - Smoking status: Never Smoker - Smokeless tobacco: Never Used Substance Use Topics - Alcohol use: No - Drug use: Never FAMILY HISTORY Problem Relation Age of Onset - Hypertension Mother alive - Diabetes Mother - other (varicose veins) Mother - None Father alive - None Brother alive - Cancer Maternal Grandmother - Diabetes Maternal Grandmother - Cancer Maternal Grandfather - Alzheimer's Disease Maternal Grandfather - Multiple Sclerosis Maternal Grandfather - None Daughter alive - Multiple Sclerosis Maternal Uncle REVIEW OF SYSTEMS: Comprehensive review of systems otherwise was negative, including constitutional, head and neck, cardiovascular, pulmonary, gastrointestinal, endocrine, urologic, reproductive, rheumatic, hematologic, immunologic, dermatologic, and psychiatric. Nutritional concerns: None Driving issues: None Concerns regarding living situation and safety at home: None Risk of falls: None Pain: None PHYSICAL EXAM: 02/13/21 0933 BP: 114/75 Pulse: 91 Temp: 36.6 ?C (97.8 ?F) TempSrc: Temporal SpO2: 100% Weight: 71.6 kg (157 lb 12.8 oz) Height: 157.5 cm (5' 2 ) Hair, skin, nails, and joints were normal. Neck was supple without Lhermitte's phenomenon. There was no percussion tenderness over the spine. Carotids were 2+ without bruits. Thyroid was normal. The patient was alert and oriented to person, place, and time with normal language, attention and concentration, recent and remote memory, praxis, and intellectual function. Affect was normal. The patient did not appear depressed. Visual acuity to near card was as follows: OD= 20/20 (without correction) OS= 20/20 (without correction). Visual diaz were full to confrontation. Pupils were 6 mm and briskly reactive OU without a relative afferent pupillary defect. Funduscopic examination was normal without disc edema, erythema, or atrophy. Ocular ductions were full without nystagmus or ataxia. Facial sensation was normal. Muscles of mastication and facial expression moved normally. Hearing was normal. Gag reflex and palatal movements were normal. Sternocleidomastoid and trapezius power were normal. Tongue movements were normal. There was no dysarthria. Motor Examination: There was no pronator drift. No fasciculations. Right Upper Extremity: (of 5) Left Upper Extremity: (of 5) Deltoid 5 Deltoid 5 Biceps 5 Biceps 5 Triceps 5 Triceps 5 Finger extensors 5 Finger extensors 5 Finger flexors 5 Finger flexors 5 Dorsal interossei 5 Dorsal interossei 5 Abductor pollicis 5 Abductor pollicis 5 Tone (Jennifer scale) 0 Tone (Jennifer scale) 0 Right Lower Extremity: (of 5) Left Lower Extremity: (of 5) Hip flexors 5 Hip flexors 5 Hip extensors 5 Hip extensors 5 Knee flexors 5 Knee flexors 5 Knee extensors 5 Knee extensors 5 Dorsiflexors 5 Dorsiflexors 5 Plantarflexors 5 Plantarflexors 5 Tone (Jennifer scale) 0 Tone (Jennifer scale) 0 Modified Jennifer Score Harmon: 0 - no increase in tone 1 - Slight increase in tone (catch and release at end of ROM) 1+ Slight increase in tone, manifested by a catch followed by min resistance throughout remainder (less than 1/2 ROM) 2 - marked increase in tone through most of ROM, but affected part easily moved 3 - considerable increase in tone; passive movement difficult 4 - Affected part rigid Reflexes: brachioradialis ++ brachioradialis ++ biceps ++ biceps ++ triceps ++ triceps ++ patellar ++ patellar ++ ankle jerk ++ ankle jerk ++ plantar response down plantar response down Coordination in the arms and legs was intact including iccfc-kg-ublwe, rapid-alternating, and fine movements. Sensory examination: Light touch: Normal all four extremities. Vibration: Mild impairment bilaterally. Proprioception: Normal bilateral lower extremities. Standard gait was normal. Heel, toe, and tandem walking were normal. Timed 25-foot walk (sec): 4.1 Assistive device: None. REVIEW OF IMAGING STUDIES: I reviewed the following studies: 05 JAN 2021: MRI thoracic spine with and without contrast: There is a small syrinx in the upper thoracic cord present for about one level. No other definite abnormal signal in the thoracic cord. There is no abnormal enhancement. 05 JAN 2021: MRI cervical spine with and without contrast: No abnormal signal within the cord. No abnormal enhancement. 07 DEC 2020: MRI brain with and without contrast: There are a few subcortical hyperintensities, which appear nonspecific. There is no abnormal enhancement. ASSESSMENT: Celi Mardid is a 35 year old woman with paresthesias in her right arm, fatigue, and some cognitive clouding. Her neurological examination is notable for mild impairment of vibration in her bilateral feet. On my review of her imaging, there are a few punctate nonspecific hyperintensities in her brain, but it is otherwise unremarkable. There is also a small syrinx in the thoracic spinal cord. Her presentation is compatible with MS though not highly suggestive of it and given the lack of clear demyelinating lesions on her imaging, I think MS is fairly unlikely. She is scheduled for a lumbar puncture at the end of the week, which I do not think is strictly necessary, but could be done to sullivan further evidence for or against demyelinating disease. In the meantime, the cause of the arm paresthesias and cognitive issues remains unclear. I will send blood work today for possible mimics. PLAN: 1. If she proceed with the LP she will send the results to me for review. 2. Check TSH, homocysteine, copper, ceruloplasmin, methylmalonic acid, folate, JASVIR, DAVE, anti-BRENT, Lyme antibodies, syphilis IgG. 3. Letter to Dr. Jones. 4. Follow-up in 3 months. I spent 70 minutes on the date of service, which included preparing to see the patient, [id number] patient care, performing a medically appropriate examination, completing clinical documentation, reviewing records, and counseling/educating the patient/family. Hardik Garcia MD Staff Neurologist [facility] Referring Provider: SELF [[id number]] Allergies As of Date: 02/13/2021 Noted Allergy Reaction NSAIDS (NON-STEROIDAL ANTI-INFLAM* 14 - Other: See Comments Comments: Cant take due to ckd Date Reviewed: 02/13/2021 Reviewed by: Hardik Garcia - Fully Assessed Reason for Visit: New Patient [172] Cmt: 2nd opinion regarding MS dx. Primary Visit Diagnosis:Chronic fatigue [R53.82] Other Visit Diagnoses:Abnormal brain MRI [R90.89] Pain of right upper extremity [M79.601] Order(s):DAVE/ANGIOTENSIN BLD [SQACE] Order #: [id number] FUTURE ANTI BRENT ID [SQENAID] Order #: [id number] FUTURE JASVIR BY IFA WITH REFLEX [SQANAIFR] Order #: [id number] FUTURE FOLATE SERUM [SQSERFOL] Order #: [id number] FUTURE HOMOCYSTEINE [SQHOMCYS] Order #: [id number] FUTURE LYME AB LATE >30 DAYS SYMPTOMS [SQLMLATE] Order #: [id number] FUTURE METHYLMALONIC ACID [SQMMA] Order #: [id number] FUTURE SYPHILIS TOTAL W/REFLEX [SQSYPHTX] Order #: [id number] FUTURE TSH BLD [SQTSH] Order #: [id number] FUTURE COPPER BLOOD [SQCOPPER] Order #: [id number] FUTURE CERULOPLASMIN BLD [SQCERULO] Order #: [id number] FUTURE Prescriptions as of 02/13/2021 Sig: ROSUVASTATIN 10 MG SPRINKLE C* Problem List As Of Date 02/13/2021 Noted Resolved Proteinuria [R80.9] 11/29/2015 Cyst of left ovary [N83.202] 11/29/2015 Previous with HELLP syndrome, antepar*11/29/2015 Previous complicated by -ind*11/29/2015 Maternal proteinuria, antepartum [O12.10] 10/29/2016 Hypotension due to drugs [I95.2] 07/15/2017 FSGS (focal segmental glomerulosclerosis) [N05.*07/15/2017 Medications Discontinued During This Encounter Prescriptions - ergocalciferol, vitamin D2, (VITAMIN D) 50,000 unit capsule (Discontinued) Take 1 capsule by mouth once each week. Disposition: Return in about 3 months (around 05/15/2021). Follow-up and Disposition History Recorded Encounter Status:Closed by HARDIK GARCIA MD on 02/13/21 [facility] PROGRESSon 02-13-2021 PROGRESS HNO ID: [id number] Author: Hardik Garcia Service: ? Author Type: Physician Type: Progress Notes Filed: 02/13/2021 11:20 AM Note Text: [facility] NEW EVALUATION Referral source: Dora Jones MD [address] [place] [id number] PRINCIPAL NEUROLOGIC DIAGNOSIS: Right arm pain, cognitive complaints HISTORY OF ILLNESS: Consultation on/Evaluation of this 35 year old right-handed woman was requested regarding multiple sclerosis diagnosis. The patient was accompanied by her . Previous records (physician notes, laboratory reports, and radiology reports) and imaging studies were reviewed and summarized. My findings and recommendations will be communicated back to the patient's physician(s) either via the shared medical record or mail. Follow-up is expected to be with me at the [facility]. Ms. Madrid notes that in 2016, she had a lot of fatigue and was getting sick frequently. She was sent to an timber sizer operator and was given the pneumonia vaccine but no further workup was done. In 2019, Ms. Madrid began experiencing migraines, which was a completely new phenomenon for her. She began experiencing a crescent austin type visual aura. Her arms and hands began to get tingly and numb. She was referred to a neurologist and an EMG was done, which was normal. She was then sent for a brain MRI, which showed lesions suspicious for MS. She also had a thoracic MRI. Ms. Madrid also notes that she mixes up her words a lot and has had some trouble with retaining new information. She also reports that her right arm constantly feels like it is on fire. It intensifies when she is stressed or anxious. She also reports that she has had some tingling in her legs. She has followed with Dr. Castillo in [place] at the [facility]. He recommended Ocrevus. She has discussed this with her liver doctor and gotten the ok to proceed with it. Dr. Castillo has suggested a lumbar puncture, but that has not been done yet. Prior to the above, she denies any history of episodic neurologic impairment that might be consistent with ORGAN PIPE MAKER METAL demyelination, such as unilateral visual loss, focal weakness/numbness, slurred speech or facial droop. 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 No current facility-administered medications for this visit. Social History Tobacco Use - Smoking status: Never Smoker - Smokeless tobacco: Never Used Substance Use Topics - Alcohol use: No - Drug use: Never FAMILY HISTORY Problem Relation Age of Onset - Hypertension Mother alive - Diabetes Mother - other (varicose veins) Mother - None Father alive - None Brother alive - Cancer Maternal Grandmother - Diabetes Maternal Grandmother - Cancer Maternal Grandfather - Alzheimer's Disease Maternal Grandfather - Multiple Sclerosis Maternal Grandfather - None Daughter alive - Multiple Sclerosis Maternal Uncle REVIEW OF SYSTEMS: Comprehensive review of systems otherwise was negative, including constitutional, head and neck, cardiovascular, pulmonary, gastrointestinal, endocrine, urologic, reproductive, rheumatic, hematologic, immunologic, dermatologic, and psychiatric. Nutritional concerns: None Driving issues: None Concerns regarding living situation and safety at home: None Risk of falls: None Pain: None PHYSICAL EXAM: 02/13/21 0933 BP: 114/75 Pulse: 91 Temp: 36.6 ?C (97.8 ?F) TempSrc: Temporal SpO2: 100% Weight: 71.6 kg (157 lb 12.8 oz) Height: 157.5 cm (5' 2 ) Hair, skin, nails, and joints were normal. Neck was supple without Lhermitte's phenomenon. There was no percussion tenderness over the spine. Carotids were 2+ without bruits. Thyroid was normal. The patient was alert and oriented to person, place, and time with normal language, attention and concentration, recent and remote memory, praxis, and intellectual function. Affect was normal. The patient did not appear depressed. Visual acuity to near card was as follows: OD= 20/20 (without correction) OS= 20/20 (without correction). Visual diaz were full to confrontation. Pupils were 6 mm and briskly reactive OU without a relative afferent pupillary defect. Funduscopic examination was normal without disc edema, erythema, or atrophy. Ocular ductions were full without nystagmus or ataxia. Facial sensation was normal. Muscles of mastication and facial expression moved normally. Hearing was normal. Gag reflex and palatal movements were normal. Sternocleidomastoid and trapezius power were normal. Tongue movements were normal. There was no dysarthria. Motor Examination: There was no pronator drift. No fasciculations. Right Upper Extremity: (of 5) Left Upper Extremity: (of 5) Deltoid 5 Deltoid 5 Biceps 5 Biceps 5 Triceps 5 Triceps 5 Finger extensors 5 Finger extensors 5 Finger flexors 5 Finger flexors 5 Dorsal interossei 5 Dorsal interossei 5 Abductor pollicis 5 Abductor pollicis 5 Tone (Jennifer scale) 0 Tone (Jennifer scale) 0 Right Lower Extremity: (of 5) Left Lower Extremity: (of 5) Hip flexors 5 Hip flexors 5 Hip extensors 5 Hip extensors 5 Knee flexors 5 Knee flexors 5 Knee extensors 5 Knee extensors 5 Dorsiflexors 5 Dorsiflexors 5 Plantarflexors 5 Plantarflexors 5 Tone (Jennifer scale) 0 Tone (Jennifer scale) 0 Modified Jennifer Score Harmon: 0 - no increase in tone 1 - Slight increase in tone (catch and release at end of ROM) 1+ Slight increase in tone, manifested by a catch followed by min resistance throughout remainder (less than 1/2 ROM) 2 - marked increase in tone through most of ROM, but affected part easily moved 3 - considerable increase in tone; passive movement difficult 4 - Affected part rigid Reflexes: brachioradialis ++ brachioradialis ++ biceps ++ biceps ++ triceps ++ triceps ++ patellar ++ patellar ++ ankle jerk ++ ankle jerk ++ plantar response down plantar response down Coordination in the arms and legs was intact including uvwmy-bi-aytvt, rapid-alternating, and fine movements. Sensory examination: Light touch: Normal all four extremities. Vibration: Mild impairment bilaterally. Proprioception: Normal bilateral lower extremities. Standard gait was normal. Heel, toe, and tandem walking were normal. Timed 25-foot walk (sec): 4.1 Assistive device: None. REVIEW OF IMAGING STUDIES: I reviewed the following studies: 05 JAN 2021: MRI thoracic spine with and without contrast: There is a small syrinx in the upper thoracic cord present for about one level. No other definite abnormal signal in the thoracic cord. There is no abnormal enhancement. 05 JAN 2021: MRI cervical spine with and without contrast: No abnormal signal within the cord. No abnormal enhancement. 07 DEC 2020: MRI brain with and without contrast: There are a few subcortical hyperintensities, which appear nonspecific. There is no abnormal enhancement. ASSESSMENT: Celi Madrid is a 35 year old woman with paresthesias in her right arm, fatigue, and some cognitive clouding. Her neurological examination is notable for mild impairment of vibration in her bilateral feet. On my review of her imaging, there are a few punctate nonspecific hyperintensities in her brain, but it is otherwise unremarkable. There is also a small syrinx in the thoracic spinal cord. Her presentation is compatible with MS though not highly suggestive of it and given the lack of clear demyelinating lesions on her imaging, I think MS is fairly unlikely. She is scheduled for a lumbar puncture at the end of the week, which I do not think is strictly necessary, but could be done to sullivan further evidence for or against demyelinating disease. In the meantime, the cause of the arm paresthesias and cognitive issues remains unclear. I will send blood work today for possible mimics. PLAN: 1. If she proceed with the LP she will send the results to me for review. 2. Check TSH, homocysteine, copper, ceruloplasmin, methylmalonic acid, folate, JASVIR, DAVE, anti-BRENT, Lyme antibodies, syphilis IgG. 3. Letter to Dr. Jones. 4. Follow-up in 3 months. I spent 70 minutes on the date of service, which included preparing to see the patient, hvzi-[id number] patient care, performing a medically appropriate examination, completing clinical documentation, reviewing records, and counseling/educating the patient/family. Hardik Garcia MD Staff Neurologist [facility] Normal [facility] MR OUTSIDE CD DICOM IMPORT - NBNRon 01-05-2021 MR OUTSIDE CD DICOM IMPORT -NBNR Images were obtained outside of [facility] [id number] Normal [facility] MR OUTSIDE CD DICOM IMPORT -NBNR Images were obtained outside of [facility] [id number] Normal [facility] XR OUTSIDE CD DICOM IMPORT - NBNRon 01-05-2021 XR OUTSIDE CD DICOM IMPORT -NBNR Images were obtained outside of [facility] [id number] Normal [facility] TOM VIRUS DNA, PCR WHOLE BLOO Don 12-28-2020 TOM Virus DNA,PCR (Whole Blood) Negative Normal Negat brandt [facility] Comment on above: Result Comment: No J CV DNA detected This test was developed and its performance characteristics determined by [facility]. It has not been cleared or approved by the Food and Drug Administration. The FDA has determined that such clearance or approval is not necessary. Performed By: #### J CVPCR ####[facility] N[address] [place] QUANTIFERON TB GOLD PLUS (NO N-INC)on 12-27-2020 Comment Incubation performed. Normal [facility] Comment on above: Performed By: #### Q NTTBG ####[facility] Clkv[address] [place] Criteria Comment Normal [facility] Comment on above: Result Comment: The QuantiFERON-TB Gold Plus result is determined by subtracting the Nil value from either TB antigen (Ag) tube. The mitogen tube serves as a control for the test. Performed By: #### Q NTTBG ####[facility] E[address] [place] Mitogen Value >10.00 Normal [facility] Comment on above: Performed By: #### Q NTTBG ####[facility] Duj[address]owipl[address]63 [address] [place] Nill Value 0.17 IU/mL Normal [facility] Comment on above: Performed By: #### Q NTTBG ####[facility] [address] [place] [address] [place] Quantiferon Gold Plus Negative Normal Negative [facility] Comment on above: Performed By: #### Q NTTBG ####[facility] [address] [place] [address] [place] TB1 Ag Value 0.16 IU/mL Normal [facility] Comment on above: Performed By: #### Q NTTBG ####[facility] [address] [place] [address] [place] TB2 Ag Value 0.17 IU/mL Normal [facility] Comment on above: Performed By: #### Q NTTBG ####[facility] [address] [place] [address] [place] HEPATITIS PANEL, ACUTEon HBsAg Screen Negative Normal Negative [facility] Comment on above: Performed By: #### C MP, LIPID #### [facility] [address] [address] [address] Sd Jarrett Hep A Ab, IgM Negative Normal Negative The [facility] [place] Comment on above: Performed By: #### C MP, LIPID #### [facility] [address] [address] [address] Sd Jarrett Hep B Core Ab, IgM Negative Normal Negative The [facility] Comment on above: Performed By: #### C MP, LIPID #### [facility] [address] [address] [address] Sd Jarrett Hep C Virus Ab <0.1 Normal 0.0-0.9 [facility] Comment on above: Result Comment: Nega tive: < 0.8 Indeterminate: 0.8 - 0.9 Positive: > 0.9 . The [facility] recommends that a positive HCV antibody result be followed up with a HCV Nucleic Acid Amplification test (573522). Performed By: #### C MP, LIPID #### [facility] [address] [address] [address] Sd Jarrett LYME DISEASE AB, TOTAL AND I GM W/WB REFEon 12-25-2020 Lyme Disease Ab, Quant, IgM <0.80 Normal 0.00-0.[address] [place] [address] Comment on above: Result Comment: Nega tive <0.80 Equivocal 0.80 - 1.19 Positive >1.19 . IgM levels may peak at 3-6 weeks post infection, then gradually decline. Performed By: #### C MP, LIPID #### [facility] [address] [address] [address] Sd Jarrett Lyme IgG/IgM Ab <0.91 Normal 0.00-0.90 [facility] Comment on above: Result Comment: Nega tive <0.91 Equivocal 0.91 - 1.09 Positive >1.09 Performed By: #### C ARDEN, LIPID #### [facility] [address] [address] [address] Sd Jarrett VARICELLA ZOSTER VIRUS IGM Q UANTon 12-25-2020 Varicella-Zoster Ab, IgM <0.91 Normal 0.00-0.90 [facility] Comment on above: Result Comment: Nega tive <0.91 Borderline 0.91 - 1.09 Positive >1.09 Performed By: #### V ARCIGM ####[facility] [address] [address]Woody Duenas IMMUNOGLOBULIN IGG QUANTITAT IVEon 12-24-2020 Immunoglobulin G, Qn, Serum 839 mg/dL Normal 586-1602 [facility] Comment on above: Performed By: #### C MP, LIPID #### [facility] [address] [place] [address] Dr. Sd Jarrett IMMUNOGLOBULIN IGM QUANTITAT IVEon 12-24-2020 Immunoglobulin M, Qn, Serum 170 mg/dL Normal 26-217 [facility] Comment on above: Performed By: #### C MP, LIPID #### [facility] [address] [place] [address] Dr. Sd Jarrett VARICELLA IGG ABon 1 Varicella Zoster IgG 641 index Normal Immune >165 [facility] Comment on above: Result Comment: Nega tive <135 Equivocal 135 - 165 Positive >165 A positive result generally indicates exposure to the pathogen or administration of specific immunoglobulins, but it is not indication of active infection or stage of disease. Performed By: #### C MP, LIPID #### [facility] [address] [place] [address] Dr. Sd Jarrett CBC AUTO DIFFon 12-23-2020 BASO # 0.0 103/ul Normal 0.0-0.[address] [facility] Comment on above: Performed By: #### C MP, LIPID #### [facility] [address] [place] [address] Dr. Sd Jarrett Basophils/100 WBC (Bld) 0.7 % Normal 0.2-2.0 [facility] [place] Comment on above: Performed By: #### C MP, LIPID #### [facility] [address] [place] [address] Dr. Sd Jarrett EO # 0.2 103/ul Normal 0.0-0.7 The [facility] Comment on above: Performed By: #### C MP, LIPID #### [facility] [address] [place] [address] Dr. Sd Jarrett Eosinophils/100 WBC (Bld) 4.1 % Normal 0.9-7.0 [facility] Comment on above: Performed By: #### C MP, LIPID #### [facility] [address] [place] [address] Dr. Sd Jarrett Erythrocyte distribution wid th (RBC) [Ratio] 12.8 % Normal 11.0-15.0 [facility] Comment on above: Performed By: #### C MP, LIPID #### [facility] [address] [place] [address] Dr. Sd Jarrett Hematocrit (Bld) [Volume fraction] 38.1 % Normal 3 6.0-48.0 [facility] Comment on above: Performed By: #### C MP, LIPID #### [facility] [address] [place] [address] Dr. Sd Jarrett Hemoglobin (Bld) [Mass/Vol] 12.3 g/dL Normal 12.0-16. 0 [facility] Comment on above: Performed By: #### C MP, LIPID #### [facility] [address] [place] [address] Dr. Sd Jarrett IG # 0.02 10e3/ul Normal 0.00-0.03 [facility] Comment on above: Performed By: #### C MP, LIPID #### [facility] [address] [place] [address] Dr. Sd Jarrett IG % 0.5 % Normal 0.0-0.5 [facility] Comment on above: Performed By: #### C MP, LIPID #### [facility] [address] [place] [address] Dr. Sd Jarrett LYMPH # 1.2 103/ul Normal 1.2-3.8 The [facility]ital Comment on above: Performed By: #### C MP, LIPID #### [facility] [address] [place] [address] Dr. Sd Jarrett Lymphocytes/100 WBC (Bld) 26.2 % Normal 20.5-60.0 [facility] Comment on above: Performed By: #### C MP, LIPID #### [facility] [address] [place] [address] Dr. Sd Jarrett MANUAL DIFF REQ NO Normal [facility] Comment on above: Performed By: #### C MP, LIPID #### [facility] [address] [place] [address] Dr. Sd Jarrett MCH (RBC) [Entitic mass] 29.1 pg Normal 26.7-34.0 [facility] Comment on above: Performed By: #### C MP, LIPID #### [facility] [address] [place] [address] Dr. Sd Jarrett MCHC (RBC) [Mass/Vol] 32.3 g/dL Normal 29.9-35.2 [facility] Comment on above: Performed By: #### C MP, LIPID #### [facility] [address] [place] [address] Dr. Sd Jarrett MCV (RBC) [Entitic vol] 90.3 fL Normal 81.0-99.0 [facility] [place] Comment on above: Performed By: #### C MP, LIPID #### [facility] [address] [place] [address] Dr. Sd Jarrett MONO # 0.3 103/ul Normal 0.3-0.8 The [facility] Comment on above: Performed By: #### C MP, LIPID #### [facility] [address] [place] [address] Dr. Sd Jarrett Monocytes/100 WBC (Bld) 7.2 % Normal 1.7-12.0 [facility] [place] Comment on above: Performed By: #### C MP, LIPID #### [facility] [address] [place] [address] Dr. Sd Jarrett NEUT # 2.7 103/ul Normal 1.4-6.5 [facility] Comment on above: Performed By: #### C MP, LIPID #### [facility] [address] [place] [address] Dr. Sd Jarrett Neutrophils/100 WBC (Bld) 61.3 % Normal 43.0-75.0 [facility] Comment on above: Performed By: #### C MP, LIPID #### [facility] [address] [place] [address] Dr. Sd Jarrett Platelet mean volume (Bld) [Entitic vol] 9.3 fL Critically low 9.5-13.5 The [facility] Comment on above: Performed By: #### C MP, LIPID #### [facility] [address] [address] [address] Sd Jarrett PLT 177 103/ul Normal 150-450 The [facility]ital Comment on above: Performed By: #### C MP, LIPID #### [facility] [address] [place], [place] [id number] Dr. Sd Jarrett RBC 4.22 106/ul Normal 4.20-5.40 [facility] Comment on above: Performed By: #### C MP, LIPID #### [facility] [address] [place] [address] Dr. Sd Jarrett WBC 4.4 103/ul Normal 4.0-11.0 [facility] Comment on above: Performed By: #### C MP, LIPID #### [facility] [address] [place] [address] Dr. Sd Jarrett PREG QUANT HCGon 12-23-2020 HCG QUANT <1 Normal The [facility] Comment on above: Performed By: #### C MP, TSH, PREGQNT #### [facility] [address] [place], [place] [id number] Woody Duenas HCG RANGE SEE BELOW Normal [facility] Comment on above: Result Comment: 5-50 0-1 WEEK 40-300 1-2 WEEKS 100-1,000 2-3 WEEKS 500-6,000 3-4 WEEKS 5,000-200,000 1-2 MONTHS 10,000-100,000 2-3 MONTHS 3,000-50,000 2ND TRIMESTER 1,000-50,000 3RD TRIMESTER Performed By: #### C MP, TSH, PREGQNT #### [facility] [address] [place] [address] Woody Duenas PROF 14(COMP METB)on 021 Albumin [Mass/Vol] 2.8 g/dL Critically low 3.5-5.0 Th [facility] Comment on above: Performed By: #### C MP, TSH, PREGQNT #### [facility] [address] [place], [place] [id number] Woody Duenas Albumin/Globulin [Mass ratio] 0.7 {ratio} Normal [facility] Comment on above: Performed By: #### C MP, TSH, PREGQNT #### [facility] [address] [id number] Woody [place]ulissa ALP [Catalytic activity/Vol] 78 U/L Normal 38-126 [facility] Comment on above: Performed By: #### C MP, TSH, PREGQNT #### [facility] [address] [id number] Woody [place] ALT [Catalytic activity/Vol] 74 U/L Critically high 9- 52 [facility] Comment on above: Performed By: #### C MP, TSH, PREGQNT #### [facility] [address] [id number] Woody [place] Anion gap [Moles/Vol] 10.8 mmol/L Normal Th [facility] Comment on above: Performed By: #### C MP, TSH, PREGQNT #### [facility] [address] [place] [address] Woody Yulissa AST [Catalytic activity/Vol] 50 U/L Critically high 14 -36 [facility] Comment on above: Performed By: #### C MP, TSH, PREGQNT #### [facility] [address] [place] [address] Woody Yulissa Bilirubin [Mass/Vol] 0.2 mg/dL Normal 0.2-1.3 [facility] Comment on above: Performed By: #### C MP, TSH, PREGQNT #### [facility] [address] [place] [address] Woody Yulissa Calcium [Mass/Vol] 8.6 mg/dL Normal 8.4-10.2 [facility] Comment on above: Performed By: #### C MP, TSH, PREGQNT #### [facility] [address] [place] [address] Woody Yulissa Chloride [Moles/Vol] 105 mmol/L Normal 98-107 [facility] Comment on above: Performed By: #### C MP, TSH, PREGQNT #### [facility] [address] [place], [place] [id number] Woody Yulissa CO2 [Moles/Vol] 28.2 mmol/L Normal 22.0-30.0 [facility] Comment on above: Performed By: #### C MP, TSH, PREGQNT #### [facility] [address] [address] Woody Yulissa Creatinine [Mass/Vol] 0.53 mg/dL Normal 0.52-1.04 [facility] Comment on above: Performed By: #### C MP, TSH, PREGQNT #### [facility] [address] [address] Woody Yulissa EGFR-AF NEPALESE >60 Normal >=60 [facility] Comment on above: Performed By: #### C MP, TSH, PREGQNT #### [facility] [address] [address] Woody [place]issa EGFR-NON AF NEPALESE >60 Normal >=60 [facility] Comment on above: Performed By: #### C MP, TSH, PREGQNT #### [facility] [address] [address] Woody Yulissa Globulin (S) [Mass/Vol] 3.9 g/dL Normal [facility] [place] Comment on above: Performed By: #### C MP, TSH, PREGQNT #### [facility] [address] [address] Woody Yulissa Glucose [Mass/Vol] 99 mg/dL Normal 74-106 [facility] Comment on above: Performed By: #### C MP, TSH, PREGQNT #### [facility] [address] [address] Woody Yulissa Potassium [Moles/Vol] 4.0 mmol/L Normal 3.4-5.0 [facility] Comment on above: Performed By: #### C MP, TSH, PREGQNT #### [facility] [address] [address] Woody Yulissa Protein [Mass/Vol] 6.7 g/dL Normal 6.1-8.2 [facility] Comment on above: Performed By: #### C MP, TSH, PREGQNT #### [facility] [address] [place], [place] [address] Woody Duenas Sodium [Moles/Vol] 140 mmol/L Normal 137-145 The [facility] Comment on above: Performed By: #### C MP, TSH, PREGQNT #### [facility] [address] [place], [place] [address] Woody Duenas Urea nitrogen [Mass/Vol] 10.0 mg/dL Normal 7.0-17.0 [facility] Comment on above: Performed By: #### C MP, TSH, PREGQNT #### [facility] [address] [place], [place] [address] Woody Duenas Urea nitrogen/Creatinine [Mass ratio] 18.9 mg/mg Normal [facility] Comment on above: Performed By: #### C MP, TSH, PREGQNT #### [facility] [address] [id number] Woody Duenas TSHon 12-23-2020 TSH 1.598 uIU/mL Normal 0.470-4.680 [facility] Comment on above: Performed By: #### C MP, TSH, PREGQNT #### [facility] [address] [place], [place] [address] Woody Duenas TSH RANGE SEE BELOW Normal The [facility] Comment on above: Result Comment: <0.3 4 UIU/ml HYPERTHYROID 0.34-5.60 UIU/ml EUTHYROID >5.60 UIU/ml HYPOTHYROID Performed By: #### C MP, TSH, PREGQNT #### [facility] [address] [id number] Woody Duenas VITAMIN B12on 12-23-2020 Cobalamin (Vitamin B12) [Mass/Vol] 538.0 pg/mL Normal 239.0-931.0 [facility] Comment on above: Performed By: #### V ITB12 ####[facility] [address] [place], [place] [address]Yelhey Karen MR OUTSIDE CD DICOM IMPORT - NBNRon 12-07-2020 MR OUTSIDE CD DICOM IMPORT -NBNR Images were obtained outside of [facility] [id number] Normal [facility] SARS-CoV2 ANTIBODIES (IgM, I gG, IgA)on 11-14-2020 SARS-CoV-2 (COVID-19) RNA NA A+probe Ql (Unsp spec) Negative Normal Negative [facility] Comment on above: Result Comment: This sample does not contain detectable SARS-CoV-2 antibodies. This negative result does not rule out SARS-CoV-2 infection. Correlation with epidemiologic risk factors and other clinical and laboratory findings is recommended. Serologic results should not be used as the sole basis to diagnose or exclude recent SARS-CoV-2 infection. Performed By: #### C VDABS ####[facility] [address] [place] Covid-19 PCR (CVDTB)on 10-10 EUA Statement SEE BELOW Normal The [facility] [place] Comment on above: Result Comment: This test is not yet approved or cleared by the [place] FDA. When there are no FDA-approved or cleared tests available, and other criteria are met, FDA can make tests available under an emergency access mechanism called an Emergency Use Authorization (EUA). The EUA for this test is supported by the Customs Broker of Health and Human Service?s (HHS?s) declaration that circumstances exist to justify the emergency use of in vitro diagnostics for the detection and/or diagnosis of the virus that causes COVID-19. This EUA will remain in effect (meaning this test can be used) for the duration of the COVID-19 declaration justifying emergency of IVDs, unless it is terminated or revoked by FDA (after which the test may no longer be used). When diagnostic testing is negative, the possibility of a false negative should be considered in the context of a patients recent exposures and the presence of clinical signs and symptoms consistent with SARS-CoV-2. Performed By: #### C VDTBH ####[facility] [address] [place], [place] [address]Coqdmh Yulissa SARS-CoV-2 (COVID-19) RNA ROXANA+probe Ql (Unsp spec) Not detected Normal NOT DETECTED [facility] Comment on above: Result Comment: This test is not yet approved or cleared by the [place] FDA. When there are no FDA-approved or cleared tests available, and other criteria are met, FDA can make tests available under an emergency access mechanism called an Emergency Use Authorization (EUA). The EUA for this test is supported by the [place] of Health and Human Service's (HHS's) declaration that circumstances exist to justify the emergency use of in vitro diagnostics for the detection and/or diagnosis of the virus that causes COVID-19. This EUA will remain in effect (meaning this test can be used) for the duration of the COVID-19 declaration justifying emergency of IVDs, unless it is terminated or revoked by FDA (after which the test may no longer be used). Performed By: #### C [facility] ####[facility] [place], [place] [address]Musced Yulissa MRI KNEE RT WO CONon 020 MRI KNEE RT WO CON EXAMINATION: MRI KNE E RT WO CON HISTORY: Internal derangement of right knee COMPARISON: No relevant comparison available. TECHNIQUE: A complete multi-planar MRI was performed. FINDINGS: MEDIAL COMPARTMENT MEDIAL MENISCUS: Mild thinning of the anterior horn and body with no definite tear. Increased signal in the posterior horn likely mild degeneration. CARTILAGE: No visible defect. BONES: No marrow pathology, fracture, or significant arthropathy. MCL AND MEDIAL CAPSULE: Normal medial collateral ligament and medial capsule. LATERAL COMPARTMENT LATERAL MENISCUS: No visible tear or significant degeneration. CARTILAGE: No visible defect. BONES: No marrow pathology, fracture, or significant arthropathy. LCL/POSTEROLAT COMPLEX: Normal lateral collateral ligament, fascicles, lateral capsule and ligaments. ANTERIOR COMPARTMENT PATELLA: No marrow pathology, fracture, or significant arthropathy. CARTILAGE: No visible defect. TENDONS: Normal. EFFUSION: None. No synovitis or loose bodies. ACL: Increased signal mid to distal ligament PCL: The signal proximal ligament MENISCOFEMORAL: Normal meniscofemoral ligaments. OTHER: Negative. IMPRESSION: Strain of the proximal posterior cruciate ligament and distal anterior cruciate ligament No definite meniscal tear Electronically authenticated by: DIANA MONROY Date: 2020-09-11 14:09 Normal [facility] Cult,Bloodon 11-05-2017 Cult,Blood Specimen Description .BLOOD Special Requests R ARM 6 ML Culture NO GROWTH 6 DAYS Report Status FINAL 11/05/[address] [facility] Comment on above: Performed By: #### B C ####[address] [place], [place] [id number] Cult,Blood Specimen Description .BLOOD Special Requests LT HAND 5ML Culture NO GROWTH 6 DAYS Report Status FINAL 11/05/2017 [facility] Comment on above: Performed By: #### B C ####[address] [place], [place] [id number] Cult,Bloodon 11-04-2017 Cult,Blood Specimen Description .BLOOD Special Requests LT AC 7 ML Culture NO GROWTH 6 DAYS Report Status FINAL 11/04/2017 [facility] Comment on above: Performed By: #### B C ####[address] [id number] Cult,Bloodon 11-01-2017 Cult,Blood Specimen Description .BLOODSpecial Requests RT F ARM 7 MLCulture POSITIVE BLOOD CULTURE, RN NOTIFIED: CATARINO Dunlap AT 0810 ON 10/30/17 DIRECT GRAM STAIN FROM BOTTLE: GRAM POSITIVE COCCI IN CHAINS AND PAIRS PNAFISH negative. Culture results to follow. VIRIDANS STREPTOCOCCUS GROUP SEVERAL MORPHOTYPES Report Status FINAL 11/01/2017 [facility] Comment on above: Performed By: #### B C ####[address] [id number] Cult,Urine,CCon 10-31-2017 Cult,Urine,CC Specimen Description .CLEAN CATCH URINESpecial Requests NOT REPORTEDCulture GROUP D ENTEROCOCCUS 10 to 50,000 CFU/MLReport Status FINAL 10/30/2017SUSCEPTIBILITYOrganism EGDMethod MICAmpicillin <=2 SUSCEPTIBLEPenicillin NOT REPORTEDCiprofloxacin 1 SUSCEPTIBLEErythromycin NOT REPORTEDGentamicin,High Level NOT REPORTEDLevofloxacin 1 SUSCEPTIBLELinezolid NOT REPORTEDNitrofurantoin <=16 SUSCEPTIBLESynercid NOT REPORTEDStreptomycin,Hi Level NOT REPORTEDTetracycline <=1 SUSCEPTIBLETigecycline NOT REPORTEDVancomycin 1 SUSCEPTIBLE [facility] Comment on above: Performed By: #### C JASS ####[address] [place] [address] Progress Noteon 10-30-2017 HIM IP Note OR Ambulatory Service Representative Normal [facility] Basic Metabolic Profon 10-29 (cont.) Normal [facility] Comment on above: Result Comment: Aver age GFR for 30-39 years old: 107 mL/min/1.73sq mChronic Kidney Disease: <60 mL/min/1.73sq mKidney failure: <15 mL/min/1.73sq meGFR calculated using average adult body mass. Additional eGFR calculator available at:[email or web address] [facility] [address] [place] [address] Performed By: #### C DP, BMP ####[address] [address] Anion gap 12 mmol/L Normal 9-17 [facility] Comment on above: Performed By: #### C DP, BMP ####[address] [address] Calcium 7.6 mg/dL Low 8.6-10.4 [facility] Comment on above: Performed By: #### C DP, BMP ####[address] [address] Chloride 104 mmol/L Normal 98-107 [facility] Comment on above: Performed By: #### C DP, BMP ####[facility] [address] [place] [address] CO2 24 mmol/L Normal 20-31 [facility] Comment on above: Performed By: #### C DP, BMP ####[address] [address] Creatinine 0.37 mg/dL Low 0.50-0.90 [facility] Comment on above: Performed By: #### C DP, BMP ####[facility] [address] [place] [address] eGFR (non-black) mL/min/{1.73_m2} Normal >60 [facility] Comment on above: Performed By: #### C DP, BMP ####[facility] [place] [address] Glucose mass conc 90 mg/dL Normal 70-99 [facility] Comment on above: Performed By: #### C DP, BMP ####[address] [place] [address] Potassium molar conc 4.0 mmol/L Normal 3.7-5.3 [facility] Comment on above: Performed By: #### C DP, BMP ####[address] [address] Sodium 140 mmol/L Normal 135-144 [facility] Comment on above: Performed By: #### C DP, BMP ####[address] [address] Urea nitrogen 8 mg/dL Normal 6-20 [facility] Comment on above: Performed By: #### C DP, BMP ####[address] [place] [address] BUN/CRE Ratio NOT REPORTED Normal - [facility] Comment on above: Performed By: #### C DP, BMP ####[facility] [address] [place] [address] Staging: NOT REPORTED Normal [facility] Comment on above: Performed By: #### C DP, BMP ####[address] [place] [address] CBC with Diffon 10-29-2017 Abs. Basophil 0.03 k/uL Normal 0.00-0.20 [facility] Comment on above: Performed By: #### C DP, BMP ####[address] [address] Abs.Neutrophil (Seg) 3.73 k/uL Normal 1.50-8.10 [facility] Comment on above: Performed By: #### C DP, BMP ####[address] [address] Basophils/100 WBC Auto (Bld) 1 % Normal 0-[address] [facility] Comment on above: Performed By: #### C DP, BMP ####[address] [address] Eosinophils 0.19 10*3/uL Normal 0.00-0.44 [facility] Comment on above: Performed By: #### C DP, BMP ####[address] [address] Eosinophils/100 leukocytes 3 % Normal 1-[address] [facility] Comment on above: Performed By: #### C DP, BMP ####[address] [address] Erythrocyte distribution wid th Auto Ratio (RBC) 13.1 % Normal 11.8-14.4 [facility] Comment on above: Performed By: #### C DP, BMP ####[address] [address] Erythrocytes (RBC) 3.84 10*6/uL Low 3.95-5.11 [facility] Comment on above: Performed By: #### C DP, BMP ####[address] [address] Granulocytes/100 WBC (Bld) % Normal 0.00-0.[address] [facility] Comment on above: Result Comment: [address] [place] [address] Performed By: #### C DP, BMP ####[address] [address] Hematocrit (HCT) 34.9 % Low 36.3-47.1 [facility] Comment on above: Performed By: #### C DP, BMP ####[address] [address] Hemoglobin mass conc (Bld) 10.6 g/dL Low 11.9-15.[address] [facility] Comment on above: Performed By: #### C DP, BMP ####[address] [address] Immature granulocytes #/vol (Bld) 0 % Normal [address] [facility] Comment on above: Performed By: #### C DP, BMP ####[address] [address] Lymphocytes 1.70 10*3/uL Normal 1.10-3.70 [facility] Comment on above: Performed By: #### C DP, BMP ####[address] [address] Lymphocytes/100 leukocytes 28 % Normal 24-[address] [facility] Comment on above: Performed By: #### C DP, BMP ####[address] [address] MCH 27.6 pg Normal 25.2-33.5 [facility] Comment on above: Performed By: #### C DP, BMP ####[address] [address] MCHC mass conc (RBC) 30.4 g/dL Normal 28.4-34.8 [facility] Comment on above: Performed By: #### C DP, BMP ####[address] [address] MCV 90.9 fL Normal 82.6-102.9 [facility] Comment on above: Performed By: #### C DP, BMP ####[address] [address] Monocytes 0.36 10*3/uL Normal 0.10-1.20 [facility] Comment on above: Performed By: #### C DP, BMP ####[address] [address] Monocytes/100 leukocytes 6 % Normal 3-[address] [facility] Comment on above: Performed By: #### C DP, BMP ####[address] [address] Neutrophil (Seg) 62 % Normal 36-65 [facility] Comment on above: Performed By: #### C DP, BMP ####[address] [address] Platelet mean volume (PMV) 9.9 fL Normal 8.1-13.[address] [facility] Comment on above: Performed By: #### C DP, BMP ####[address] [address] Platelets 347 10*3/uL Normal 138-453 [facility] Comment on above: Performed By: #### C DP, BMP ####[address] [address] WBC (Leukocytes) 6.0 10*3/uL Normal 3.5-11.3 [facility] Comment on above: Performed By: #### C DP, BMP ####[address] [address] Auto Diff Performed NOT REPORTED Normal [facility] Comment on above: Performed By: #### C DP, BMP ####[address] [address] Erythrocyte morphology NOT REPORTED Normal [facility] Comment on above: Performed By: #### C DP, BMP ####[address] [address] Platelets NOT REPORTED Normal [facility] Comment on above: Performed By: #### C DP, BMP ####[address] [address] WBC Morphology NOT REPORTED Normal [facility] Comment on above: Performed By: #### C DP, BMP ####[address] [address] Discharge Summaryon 10-29-20 17 HIM IP Note OR Ambulatory Service Representative Normal [facility] History and Physicalon 10-29 HIM IP Note OR Ambulatory Service Representative Normal [facility] UA w/Reflex Cultureon 2016 Bilirubin (direct) Negative Abnormal NEG [facility] Comment on above: Performed By: #### U AXCORBIN ####[address] [address] Comment Culture ordered base d on defined criteria. Normal [facility] Comment on above: Result Comment: [facility] [employer] [address] [place] [address] Performed By: #### U CORBIN ESTEVES ####[facility] [place] [address] Acetaminophen mass conc LARGE Abnormal NEG M [facility] Comment on above: Performed By: #### U AXCORBIN ####[facility] [address] [place] [address] Hemoglobin mass conc (Bld) Negative Normal NEG [facility] Comment on above: Performed By: #### U AXCORBIN ####[facility] [address] [place] [address] Nitrite,Ur Positive Abnormal NEG [facility] Comment on above: Performed By: #### U AX, UMICAO ####[facility] [address] [place] [address] Turbidity CLOUDY Abnormal CLEAR [facility] Comment on above: Performed By: #### U AX, UMICAO ####[facility] [address] [place] [address] Urine, color DARK YELLOW Abnormal YEL [facility] Comment on above: Performed By: #### U AX, UMICAO ####[address] [place] [address] Urine, glucose presence Negative Normal NEG [facility] Comment on above: Performed By: #### U AX, UMICAO ####[address] [address] Urine, leukocyte esterase presence TRACE Abnormal N EG [facility] Comment on above: Performed By: #### U AX, UMICAO ####[address] [address] Urine, pH 6.5 [pH] Normal 5.0-8.0 [facility] Comment on above: Performed By: #### U AX, UMICAO ####[facility] [address] [place] [address] Urine, protein presence 3+ Abnormal NEG [facility] Comment on above: Performed By: #### U AX, UMICAO ####[facility] [address] [place] [address] Urine, specific gravity 1.023 Normal 1.005-1.[address] [facility] Comment on above: Performed By: #### U AX, UMICAO ####[address] [place] [address] Urobilinogen,Ur Normal Normal NORM [facility] Comment on above: Performed By: #### U AX, UMICAO ####[employer] [address] [place] [address] Urinalysis,Microon 12-20-201 7 Urine, crystals in sediment FEW Abnormal NONE [facility] Comment on above: Result Comment: URIC ACID Performed By: #### U AX, UMICAO ####[facility] [address] [place] [address] Urine, yeast presence in sediment FEW Abnormal NO NE [facility] Comment on above: Result Comment: [address] [address] Performed By: #### U AX, UMICAO ####[facility] [address] [place] [address] ----- Normal [facility] Comment on above: Performed By: #### U AX, UMICAO ####[employer] [place] [address] Urine WBC's 2 TO 5 Normal 0-5 [facility] Comment on above: Performed By: #### U AX, UMICAO ####[employer] [place] [address] Urine, epithelial cells in sediment 10 TO 20 Normal 0-5 [facility] Comment on above: Performed By: #### U AX, UMICAO ####[employer] [address] [place] [address] Urine, erythrocytes 0 TO 2 Normal 0-[address] [facility] Comment on above: Result Comment: Refe rence range defined for non-centrifuged specimen. Performed By: #### U AX, UMICAO ####[facility] [address] [place] [address] Epithelial, Renal NOT REPORTED Normal [address] [facility] Comment on above: Performed By: #### U AX, UMICAO ####[facility] [address] [place] [address] Mucus Strands NOT REPORTED Normal NONE [facility] Comment on above: Performed By: #### U AX, UMICAO ####[facility] [address] [place] [address] Other Observations NOT REPORTED Normal NREQ [facility] Comment on above: Performed By: #### U AX, UMICAO ####[facility] [address] [place] [address] Trichomonas NOT REPORTED Normal NONE [facility] Comment on above: Performed By: #### U AX, UMICAO ####[facility] [address] [place] [address] Urine, amorphous sediment presence in sediment NOT REPORTED Normal NONE [facility] Comment on above: Performed By: #### U AX, UMICAO ####[facility] [address] [place] [address] Urine, bacteria in sediment NOT REPORTED Normal NONE [facility] Comment on above: Performed By: #### U AX, UMICAO ####[facility] [address] [place] [address] Urine, casts in sediment NOT REPORTED Normal 0-[address] [facility] Comment on above: Performed By: #### U AX, UMICAO ####[facility] [address] [place] [address] Basic Metabolic Profon 10-28 (cont.) Normal [facility] Comment on above: Result Comment: Aver age GFR for 30-39 years old: 107 mL/min/1.73sq mChronic Kidney Disease: <60 mL/min/1.73sq mKidney failure: <15 mL/min/1.73sq meGFR calculated using average adult body mass. Additional eGFR calculator available at:[email or web address]_[email or web address] [facility] Center [address] [place] [address] Performed By: #### C DP, BMP ####[facility] Hospitalbrandi [address] [place] [address] Anion gap 12 mmol/L Normal 9-17 [facility] Comment on above: Performed By: #### C DP, BMP ####[address] [place] [address] Calcium 8.4 mg/dL Low 8.6-10.4 [facility] Comment on above: Performed By: #### C DP, BMP ####[address] [address] Chloride 98 mmol/L Normal 98-107 [facility] Comment on above: Performed By: #### C DP, BMP ####[address] [address] CO2 27 mmol/L Normal 20-31 [facility] Comment on above: Performed By: #### C DP, BMP ####[address] [address] Creatinine 0.44 mg/dL Low 0.50-0.90 [facility] Comment on above: Performed By: #### C DP, BMP ####[address] [address] eGFR (non-black) mL/min/{1.73_m2} Normal >60 [facility] Comment on above: Performed By: #### C DP, BMP ####[address] [address] Glucose mass conc 108 mg/dL High 70-99 [facility] Comment on above: Performed By: #### C DP, BMP ####[facility] Hospitalbrandi [address] [place] [address] Potassium molar conc 3.5 mmol/L Low 3.7-5.3 [facility] Comment on above: Performed By: #### C DP, BMP ####[address] [place] [address] Sodium 137 mmol/L Normal 135-144 [facility] Comment on above: Performed By: #### C DP, BMP ####[address] [address] Urea nitrogen 10 mg/dL Normal 6-20 [facility] Comment on above: Performed By: #### C DP, BMP ####[address] [address] BUN/CRE Ratio NOT REPORTED Normal 9-[address] [facility] Comment on above: Performed By: #### C DP, BMP ####[address] [address] Staging: NOT REPORTED Normal [facility] Comment on above: Performed By: #### C DP, BMP ####[address] [address] CBC with Diffon 10-28-2017 Abs. Basophil 0.03 k/uL Normal 0.00-0.20 [facility] Comment on above: Performed By: #### C DP, BMP ####[address] [address] Abs.Neutrophil (Seg) 5.25 k/uL Normal 1.50-8.10 [facility] Comment on above: Performed By: #### C DP, BMP ####[address] [address] Basophils/100 WBC Auto (Bld) 0 % Normal 0-[address] [facility] Comment on above: Performed By: #### C DP, BMP ####[address] [address] Eosinophils 0.17 10*3/uL Normal 0.00-0.44 [facility] Comment on above: Performed By: #### C DP, BMP ####[address] [address] Eosinophils/100 leukocytes 2 % Normal 1-[address] [facility] Comment on above: Performed By: #### C DP, BMP ####[address] [address] Erythrocyte distribution wid th Auto Ratio (RBC) 13.2 % Normal 11.8-14.4 [facility] Comment on above: Performed By: #### C DP, BMP ####[address] [address] Erythrocytes (RBC) 4.39 10*6/uL Normal 3.95-5.11 [facility] Comment on above: Performed By: #### C DP, BMP ####[address] [address] Granulocytes/100 WBC (Bld) 0.03 k/uL Normal 0.00-0.[address] [facility] Comment on above: Result Comment: [address] [place] [address] Performed By: #### C DP, BMP ####[address] [address] Hematocrit (HCT) 38.7 % Normal 36.3-47.1 [facility] Comment on above: Performed By: #### C DP, BMP ####[address] [address] Hemoglobin mass conc (Bld) 12.2 g/dL Normal 11.9-15.[address] [facility] Comment on above: Performed By: #### C DP, BMP ####[address] [address] Immature granulocytes #/vol (Bld) 0 % Normal [address] [facility] Comment on above: Performed By: #### C DP, BMP ####[address] [address] Lymphocytes 1.71 10*3/uL Normal 1.10-3.70 [facility] Comment on above: Performed By: #### C DP, BMP ####[address] [address] Lymphocytes/100 leukocytes 22 % Low 24-[address] [facility] Comment on above: Performed By: #### C DP, BMP ####[address] [address] MCH 27.8 pg Normal 25.2-33.5 [facility] Comment on above: Performed By: #### C DP, BMP ####[address] [address] MCHC mass conc (RBC) 31.5 g/dL Normal 28.4-34.8 [facility] Comment on above: Performed By: #### C DP, BMP ####[address] [address] MCV 88.2 fL Normal 82.6-102.9 [facility] Comment on above: Performed By: #### C DP, BMP ####[address] [address] Monocytes 0.44 10*3/uL Normal 0.10-1.20 [facility] Comment on above: Performed By: #### C DP, BMP ####[address] [address] Monocytes/100 leukocytes 6 % Normal 3-[address] [facility] Comment on above: Performed By: #### C DP, BMP ####[address] [address] Neutrophil (Seg) 70 % High 36-65 [facility] Comment on above: Performed By: #### C DP, BMP ####[address] [address] Platelet mean volume (PMV) 9.6 fL Normal 8.1-13.[address] [facility] Comment on above: Performed By: #### C DP, BMP ####[address] [address] Platelets 456 10*3/uL High 138-453 [facility] Comment on above: Performed By: #### C DP, BMP ####[address] [address] WBC (Leukocytes) 7.6 10*3/uL Normal 3.5-11.3 [facility] Comment on above: Performed By: #### C DP, BMP ####[address] [address] Auto Diff Performed NOT REPORTED Normal [facility] Comment on above: Performed By: #### C DP, BMP ####[address] [address] Erythrocyte morphology NOT REPORTED Normal [facility] Comment on above: Performed By: #### C DP, BMP ####[address] [address] Platelets NOT REPORTED Normal [facility] Comment on above: Performed By: #### C DP, BMP ####[address] [address] WBC Morphology NOT REPORTED Normal [facility] Comment on above: Performed By: #### C DP, BMP ####[facility] [place] [id number] ED Noteon 10-28-2017 HIM IP Note OR Ambulatory Service Representative Normal [facility] HIM IP Note OR Ambulatory Service Representative Normal [facility] HIM IP Note OR Ambulatory Service Representative Normal [facility] HIM IP Note OR Ambulatory Service Representative Normal [facility] ED Provider Noteon 7 HIM IP Note OR Ambulatory Service Representative Normal [facility] Vital Signs Date Time Vital Sign Value Performing Clinician Facility 10-09-2023 09:50-0500 Body height 157.48 cm Hilary Kari Other [facility] Other 10-09-2023 09:50-0500 Body mass index (BMI) [Ratio] 27.43 kg/m2 Hilary Kari Other [facility] Other 10-09-2023 09:50-0500 Body temperature 98.1 [degF] Hilary Kari Other [facility] Other 10-09-2023 09:50-0500 Body weight 68.04 kg Hilary Kari Other [facility] Other 10-09-2023 09:50-0500 Respiratory rate 18 /min Hilary Kari Other [facility] Other 10-09-2023 09:50-0500 SaO2% (BldA) [Mass fraction] 99 % Hilary Kari Other [facility] Other 07-29-2023 09:45-0400 Body height 157.48 cm Dora Jones Other [facility] Other 07-29-2023 09:45-0400 Body mass index (BMI) [Ratio] 26.15 kg/m2 Dora Jones Other [facility] Other 07-29-2023 09:45-0400 Body temperature 98.2 [degF] Dora Jones Other [facility] Other 07-29-2023 09:45-0400 Body weight 64.86 kg Dora Joens Other [facility] Other 07-29-2023 09:45-0400 Diastolic blood pressure 87 mm[Hg] Dora Jones Other [facility] Other 07-29-2023 09:45-0400 Systolic blood pressure 124 mm[Hg] Dora Jones Other [facility] Other 03-10-2023 10:30-0400 Body height 157.48 cm Dora Jones Other [facility] Other 03-10-2023 10:30-0400 Body mass index (BMI) [Ratio] 28.16 kg/m2 Dora Jones Other [facility] Other 03-10-2023 10:30-0400 Body temperature 97.6 [degF] Droa Jones Other [facility] Other 03-10-2023 10:30-0400 Body weight 69.85 kg Dora Jones Other [facility] Other 03-10-2023 10:30-0400 Diastolic blood pressure 78 mm[Hg] Dora Jones Other [facility] Other 03-10-2023 10:30-0400 SaO2% (BldA) [Mass fraction] 99 % Dora Jones Other [facility] Other 03-10-2023 10:30-0400 Systolic blood pressure 118 mm[Hg] Dora Jones Other [facility] Other Encounters Encounter Date Encounter Type Care Provider Facility Start: 10-14-2023 End: 10-14-2023 ambulatory Dora Jones Other [facility] Other Start: 10-14-2023 Telephone encounter Dora Jones [facility] Start: 10-09-2023 End: 10-09-2023 ambulatory Hilary Kari Other [facility] [facility] Other Start: 10-09-2023 Office outpatient vi sit 15 minutes Hilary Pierce [facility] Start: 07-29-2023 End: 07-29-2023 ambulatory Dora Jones Other [facility] Other Start: 07-29-2023 Encounter for genera l adult medical examination without abnormal findings Dora Jones [facility] Start: 07-29-2023 Office outpatient vi sit 15 minutes Dora Jones [facility] Start: 07-16-2023 End: 07-16-2023 ambulatory Doar Jones Other [facility] Other Start: 07-16-2023 Telephone encounter Dora Jones [facility] Start: 05-20-2023 End: 05-20-2023 ambulatory Dora Jones Other [facility] Other Start: 05-20-2023 Telephone encounter Dora Jones [facility] Start: 03-10-2023 End: 03-10-2023 ambulatory Dora Jones Other [facility] Other Start: 03-10-2023 Office outpatient vi sit 15 minutes Dora Jones [facility] Start: 12-16-2022 End: 12-16-2022 ambulatory Dora Jones Other [facility] Other Start: 12-16-2022 Telephone encounter Dora Jones [facility] Start: 12-12-2022 (Televisit) Televisit Dora Jones [facility] Start: 12-12-2022 End: 12-12-2022 ambulatory Dora Jones Other [facility] [facility] Other Start: 09-12-2022 End: 09-12-2022 ambulatory Sammi Alanis Facility:[facility] Start: 09-12-2022 End: 09-12-2022 ambulatory MD Dora Jones Work Phone: [facility] Work Phone: Start: 09-12-2022 End: 09-12-2022 Patient encounter procedure MD Dora Jones Work Phone: [facility] [address] [place] Start: 07-23-2022 Adult health examination Dora Jones Other [employer] [facility] Other Start: 09-27-2021 End: 09-27-2021 ambulatory Dora Jones Facility:[facility] Start: 08-18-2021 Encounter for genera l adult medical examination without abnormal findings [facility] Start: 08-14-2021 End: 08-15-2021 ambulatory [facility] Facility:[facility] Start: 08-14-2021 End: 08-15-2021 Encounter for general adult medical examination without abnormal findings [facility] Facility:[facility] Start: 08-01-[address] DORA JONES [facility] ity:[facility]1 Start: 07-05-2021 End: 07-06-[address] DORA JONES Facility:[facility] Start: 06-12-2021 End: 06-13-[address] DORA JONES Facility:[facility] Start: 05-22-2021 End: 05-23-[address] UMBERTO JUNG Facility:[facility] Start: 05-18-2021 End: 05-19-[address] DOCTOR DUQUE Facility:[facility] Start: 05-07-2021 End: 05-07-[address] DORA JONES Facility:[facility] Start: 03-23-2021 End: 03-24-[address] DORA JONES Facility:[facility] Start: 02-16-2021 End: 02-17-[address] DORA JONES Facility:[facility] Start: 12-23-2020 End: 12-24-[address] DOCTOR DUQUE Facility:[facility] Start: 11-16-2020 Encounter for antibo dy response examination DR DORA JONES [facility] Start: 11-13-2020 End: 11-14-[address] DORA JONES Facility:[facility] Start: 11-13-2020 End: 11-14-2020 Encounter for antibody response examination DR DORA JONES Facility:[facility] Start: 10-21-2020 End: 10-22-[address] DORA JONES Facility:[facility] Start: 09-11-2020 End: 09-12-2020 ambulatory TERRI CURRY Facility:[facility] Start: 10-28-2017 End: 10-30-2017 Ambulatory DORA JONES [facility] Procedures Date Procedure Procedure Detail Performing Clinician Start: 10-30-2017 DISCHARGE PATIENT KOLBY JONES Start: 10-30-2017 CULTURE BLOOD #1 DORA JONES Start: 10-30-2017 INITIATE OXYGEN THER APY PROTOCOL DORA JONES Start: 10-30-2017 INTAKE AND OUTPUT KOLBY A KAREN Start: 10-29-2017 CULTURE BLOOD #1 DORA JONES Start: 10-29-2017 DIET GENERAL DORA SPANN Start: 10-29-2017 INITIATE OXYGEN THER APY PROTOCOL DORA JONES Start: 10-29-2017 BASIC METABOLIC PANEL M USHA JONES Start: 10-29-2017 CBC WITH AUTO DIFFERENTIAL DORA JONES Start: 10-29-2017 INTAKE AND OUTPUT KOLBY A KAREN Start: 10-29-2017 Microscopic urinalysis DORA JONES Start: 10-29-2017 UA W/REFLEX CULTURE MAR GENNY JONES Start: 10-29-2017 URINE CULTURE CLEAN CATCH DORA JONES Start: 10-29-2017 TELEMETRY MONITORING MA SILVER JONES Start: 10-28-2017 ADVANCE DIET TOLE RATED (NURSING COMMUNICATION) DORA JONES Start: 10-28-2017 FULL CODE DORA SPANN Start: 10-28-2017 INITIATE OXYGEN THER APY PROTOCOL DORA JONES Start: 10-28-2017 INTAKE AND OUTPUT KOLBY JONES Start: 10-28-2017 REASON FOR NO MECHAN ICAL VTE PROPHYLAXIS DORA JONES Start: 10-28-2017 VITAL SIGNS DORA MILLER UN Start: 10-28-2017 PATIENT STATUS (FROM ED OR OR/PROCEDURAL) DORA JONES Start: 10-28-2017 TRANSFER PATIENT DORA JONES Start: 10-28-2017 IP CONSULT TO AREA MANAGER DENIS DEVIMATEO KAREN Start: 10-28-2017 BASIC METABOLIC PANEL Melva JONES Start: 10-28-2017 CBC WITH AUTO DIFFERENTIAL DORA JONES Start: 10-28-2017 INSERT PERIPHERAL IV MA SILVER JONES Start: 07-01-2013 General examination of patient Dora Jones Other Hyperlipidemia screening Demetra Jones Other Plan of Treatment Date Care Activity Detail Author Start: 09-12-2022 MR Unspecified body region [facility] Start: 09-12-2022 MRI of head MR head/brain wo/w con [facility] Immunizations Immunization Date Immunization Notes Care Provider Fa [facility] 08-10-2020 influenza virus vaccine, split virus (incl. purified surface antigen) Dora Jones Other [employer] Other Payers Date Payer Category Payer [facility] Blue [facility] [id number] 2022 Unknown [id number] 2021 Self-pay [id number] 1985 Unknown [id number] 2.16.84 [id number] 1985 Unknown [id number] 2.16.84 0.1.505518.3.579.2.593 1985 Unknown [id number] 2.16.84 0.1.071893.3.579.2.593 1983 Unknown [id number] 2.16.84 0.1.365203.3.579.2.593 1983 Unknown [id number] 2.16.84 0.1.220295.3.579.2.593 1983 Unknown [id number] 2.16.84 0.1.100487.3.579.2.593 1983 Unknown [id number] 2.16.84 0.1.482215.3.579.2.593 1983 Unknown [id number] 2.16.84 0.1.781235.3.579.2.593 1983 Unknown [id number] 2.16.84 0.1.162843.3.579.2.593 1983 Unknown [id number] 2.16.84 0.1.913306.3.579.2.593 1983 Unknown [id number] 2.16.84 0.1.931174.3.579.2.593 1983 Unknown [id number] 2.16.84 0.1.605759.3.579.2.593 1983 Unknown [id number] 2.16.84 0.1.857841.3.579.2.593 1961 Private Health Insurance [id number] Unknown [id number] .16.84 0.1.414534.3.579.2.593 Unknown [id number] .16.8 40.1.043091.3.579.2.531 Unknown [id number] .16.8 40.1.553303.3.579.2.531 Unknown [id number] Social History Date Type Detail Facility Tobacco smoking status [facility] Unknown if ever smoked [facility] Work Phone: Start: 1985 Sex Assigned At Female F [facility] Sex Assigned At Sex Assigned At Bir th [employer] Other Evaluation note 10-09-2023 Note Date & Type Note Facility 10-09-2023 Evaluation note Encounter Date Diagnosis Assessment Notes Sep, Suspected COVID-19 virus infection (ICD-10 - Z20.822) Sep, COVID (ICD-10 - U07.1) You were seen ehre today for your cough, congestion, body aches, sore throat, right ear pain, fevers after close contact with covid positive person. You tested postiive for covid. Your right ear is infected. You are being prescribed a Z-angel for your right ear infection due to your penicillin allergy. You will need to remain off work for the remaining 3 days due to covid positive test. Rest, drink plenty of fluids. Tyelnol and motrin as needed for fevers, body aches, discomfort. Follow up with your primary care doctor as needed. Go to the ER if you develop chest pain, shortness of breath, difficulty breathing, inability to eat or drink. Sep, Acute right otitis media (ICD-10 - H66.91) [employer] [facility] Other Evaluation note 07-29-2023 Note Date & Type Note Facility 07-29-2023 Evaluation note Encounter Date Diagnosis Assessment Notes Jul, Wellness examination (ICD-10 - Z00.00) Not a wellness exam, but requests wellness labs done for this year. Jul, Disorder of right eustachian tube (ICD-10 - H69.91) Advised finishing steroids. Trial of lower dose sudafed with flonase, which she has not started. No OM seen. Pt understands [employer] [facility] Other Evaluation note 07-16-2023 Note Date & Type Note Facility 07-16-2023 Evaluation note Encounter Date Diagnosis Assessment Notes Jul, Pharyngitis, unspecified etiology (ICD-10 - J02.9) [employer] [facility] Other Evaluation note 03-10-2023 Note Date & Type Note Facility 03-10-2023 Evaluation note Encounter Date Diagnosis Assessment Notes March, Acute non-recurren t maxillary sinusitis (ICD-10 - J01.00) PCN allergy Sinus infections can be triggered by a secondary infection from a viral URI or even seasonal allergies. Take medications as directed. Use saline nasal spray prior to presciption nasal spray. Take medications as directed, and complete all doses of medication even if you start to feel better. Patient advised to follow up with PCP if symptoms persist or worsen. Patient verbalized understanding and agreement with treatment plan. March, Vaginal yeast infection (ICD-10 - B37.31) requests rx - states she easily has this problem on antibiotics. [employer] [facility] Other Evaluation note 12-16-2022 Note Date & Type Note Facility 12-16-2022 Evaluation note Encounter Date Diagnosis Assessment Notes Dec, Acute non-recurrent maxillary sinusitis (ICD-10 - J01.00) [facility] [facility] Other Evaluation note 12-12-2022 Note Date & Type Note Facility 12-12-2022 Evaluation note Encounter Date Diagnosis Assessment Notes Dec, Acute non-recurrent maxillary sinusitis (ICD-10 - J01.00) Testing for influenza as her negative COVID tests were not conclusive at home. Patient prefers to wait. Strongly suspect she has strep throat. Updated medication and allergy list in chart. Patient will call if her symptoms fail to improve [employer] Other Evaluation note Note Date & Type Note Facility [facility]: Evaluation note Note Date & Type Note Facility Evaluation note No Information [employer] Other History general Narrative - Reported Note Date & Type Note Facility History general Narrative - Reported Type Medical History proteinuria Medical History CKD (chronic kidney disease) Medical History anxiety Medical History migraine headache Surgical History C section, x2 Surgical History bilateral salpingectomy 2016 Surgical History kidney biposy 02/2017 Surgical History hysterectomy Hospitalization History child Hospitalization History low k+ level 2003 [facility] Other History general Narrative - Reported Note Date & Type Note Facility History general Narrative - Reported [employer] Other Summary Purpose Family History No Family History Records FoundNo Family History Records FoundNo Family History Records FoundNo Family History Records FoundNo Family History Records Found Advance Directives Advance Directive Response Recorded Date/ Time Advance Directives No November 28, 2020 1:52pm Chief Complaint and Reason for Visit Chief Complaint g43.909 g37.9 Additional Source Comments INFORMATION SOURCE (unrecogn ized section and content) DATE CREATED AUTHOR 05/05/2018 [facility] DATE CREATED AUTHOR AUTHOR'S ORGANIZ ATION [facility]/20[facility] DATE CREATED AUTHOR AUTHOR'S ORGANIZ ATION 08/19/2021 [facility] DATE CREATED AUTHOR AUTHOR'S ORGANIZ ATION 12/03/2021 [facility] DATE CREATED AUTHOR AUTHOR'S ORGANIZ ATION 09/21/2022 [facility] Care Teams (unrecognized sec tion and content) Team Status: Inactive Member Role Status Dates Dora Jones MD Primary Care Provider Active Sammi Alanis APRN [employer] Attending Provider A ctive Team Status: Active Member Role Status Dates Dora Jones MD Primary Care Provider Active Goals (unrecognized section and content) Goals may be documented in a n alternate sectionNo InformationNo InformationNo InformationNo InformationNo InformationNo InformationNo Information REASON FOR VISIT (unrecogniz ed section and content) Sore [phone] ageCOVID TEST NEGATIVE, SORE THROAT SETTLED IN HER CHESTStrep Ordercough, right side facial painCOVID TEST; BODY ACHES, SORE THROAT, MIGRAIN, DIZZINESScxr FOR RECORDS PERTAINING TO PATIENTS WHO ARE OR HAVE BEEN ENROLLED IN A CHEMICAL DEPENDENCY/SUBSTANCEABUSE PROGRAM, SOME INFORMATION MAY BE OMITTED. This clinical summary was aggregated from multiple sources. Caution should be exercised in using it in the provision of clinical care. This summary normalizes information from multiple sources, and as a consequence, information in this document may materially change the coding, format and clinical context of patient data. In addition, data may be omitted in some cases. CLINICAL DECISIONS SHOULD BE BASED ON THE PRIMARY CLINICAL RECORDS. [employer] provides no warranty or guarantee of the accuracy or completeness of information in this document.
== END 2023-10-10 16:05 | disposition home or self-care (01) ==
PROVIDERS: Emergency Provider Emergency Medicine; PCP Family Medicine
DX: U07.1 COVID-19 (principal); R07.9 Chest pain, unspecified; R11.0 Nausea
CPT/HCPCS: 71045; 93005; 94640; 96374; 99285

== ENCOUNTER 2023-10-14 11:53 | Outpatient (OUT) | payer BC, SELFPAY ==
--- NOTE | 2023-10-14 11:58 | XR_ITS ---
[place] [id number] Patient Name: CELI JOE MRN: [id number] date: 1985 Sex: F Assigned Patient Location: RAD Current Patient Location: RAD Accession/Order Number: [id number] Exam Date: 10/14/2023 12:01 Report Date: 10/14/2023 12:39 At the request of: YELITZA JONES Procedure: XR chest 2V EXAM: XR chest 2V HISTORY: Acute COVID 19 COMPARISON: Chest study dated 10/10/2023 TECHNIQUE: PA and lateral views of the chest were obtained. FINDINGS: Heart and mediastinal contours are unremarkable in appearance. No acute infiltrate or consolidations are seen. No obvious pneumothorax. Slight convexity of the dorsal spine to the right. XR/XR chest 2V IMPRESSION: No acute process seen in the chest. Electronically authenticated by: TROY MOSELEY Date: 10/14/2023 12:39
== END 2023-10-14 11:54 | disposition home or self-care (01) ==
LOC: RAD 11:54
PROVIDERS: PCP Family Medicine; Visit Provider Family Medicine
DX: U07.1 COVID-19 (principal)
CPT/HCPCS: 71046

== ENCOUNTER 2024-01-30 08:25 | Outpatient (OUT) | payer BC, SELFPAY ==
--- NOTE | 2024-01-30 | US_ITS ---
Patient Name: CELI JOE MR#: [id number] : 1985 Exam Date: 01/30/2024 Ordering Doctor: DR Dora Ferraro M.D. RADIOLOGY REPORT PROCEDURE: MM TOMOSYNTHESIS DIAGNOSTIC BI, 01/30/2024, 07:48 US BREAST RT COMPLETE, 01/30/2024, 09:31 COMPARISON: None. INDICATIONS: Right breast pain Calculator Name NCI Breast Cancer Risk Assessment Tool 5 Year Breast Cancer Risk 0.60% Lifetime Breast Cancer Risk 11.10% Personal Breast Cancer No Personal Ovarian Cancer No Treatments None Family Cancers None LOCATION: [facility] BREAST COMPOSITION: Extremely dense, which lowers the sensitivity of mammography. FINDINGS: DIAGNOSTIC CATEGORY 3--PROBABLY BENIGN FINDING. THE FOLLOWING FINDING(S) HAS A HIGH PROBABILITY OF A BENIGN ETIOLOGY: RIGHT BREAST: Several partially circumscribed lesions scattered within the breast seen on tomosynthesis. Ultrasound evaluation demonstrates several nonspecific nodules versus cysts measuring less than 1 cm in size. Slightly lobular lesion at the 9 o'clock position, 8 x 8 x 5 millimeters. Slightly geographic shaped lesion at the connors o'clock position, 5 x 4 x 4 millimeters. Given the multiplicity these most likely represent benign lesions, however, short-term follow-up is recommended to document stability and to help establish baseline for this patient. Alternatively, ultrasound-guided biopsy could be performed of the 9 o'clock lesion. LEFT BREAST: No significant suspicious finding. RECOMMENDATIONS: SHORT TERM FOLLOW-UP DIAGNOSTIC MAMMOGRAM RIGHT BREAST IN 3-6 MONTHS. SHORT TERM FOLLOW-UP ULTRASOUND RIGHT BREAST IN 3-6 MONTHS. PLEASE NOTE: A NORMAL MAMMOGRAM DOES NOT EXCLUDE THE POSSIBILITY OF BREAST CANCER. A CLINICALLY SUSPICIOUS PALPABLE LUMP SHOULD BE BIOPSIED. Dictated by: Otoniel Dia M.D. on 01/30/2024 at 10:17 Approved by: Otoniel Dia M.D. on 01/30/2024 at 12:04
--- OUTSIDE RECORDS SUMMARY | 2024-01-30 08:30 | XMS_ITS | CCD ---
Author Organization [facility] Care Team Providers Care Workers Compensation Specialist Name Role Phone YELITZA JONES Unavailable Unavailable JOSE L, TANESHA S Unavailable Unavailable JOSE L, TANESHA S Unavailable Unavailable JONES, DR YELITZA Ma Consulting Unavailable JONES, DR YELITZA Ma Attending Unavailable JONES, DR YELITZA Ma Admitting Unavailable JONES, DR YELITZA Ma Primary Care Unavailable JONES, DR YELITZA Ma Primary Care Unavailable SABA, SYL Admitting Unavailable ZIMADAN, DR UMBERTO Licona Consulting Unavailable HIGHLANDER, SYL Attending Unavailable SABA, SYL Consulting Unavailable SHAIKH PRATHER Consulting Unavailable SHAIKH PRATHER Attending Unavailable JONES, DR YELITZA Ma Primary Care Unavailable SHAIKH PRATHER Admitting Unavailable JONES, DR YELITZA Ma Primary Care Unavailable JAYSON MEYER Attending Unavailable JAYSON MEYER Admitting Unavailable JAYSON MEYER Consulting Unavailable Joel Cole Consulting Unavailable JONES, DR YELITZA Ma Primary Care Unavailable JAYSON MEYER Attending Unavailable JAYSON MEYER Admitting Unavailable TERRI CURRY Attending Unavailable KAREN, DR YELITZA Ma Primary Care Unavailable TERRI CURRY Admitting Unavailable BANNER, DR DIANA Beckwith Consulting Unavailable TERRI CURRY Consulting Unavailable JONES, DR YELITZA Ma Consulting Unavailable JONES, DR YELITZA Ma Attending Unavailable JONES, DR YELITZA Ma Admitting Unavailable JONES, DR YELITZA Ma Primary Care Unavailable JONES, DR YELITZA Ma Consulting Unavailable JONES, DR YELITZA Ma Attending Unavailable JONES, DR YELITZA Ma Admitting Unavailable MISC, DR MORSE Consulting Unavailable MISC, DR MORSE Attending Unavailable MISC, DR MORSE Admitting Unavailable JONES, DR YELITZA Ma Primary Care Unavailable JONES, DR YELITZA Ma Primary Care Unavailable MIKE CURRY Admitting Unavailable MIKE CURRY Consulting Unavailable MIKE CURRY Attending Unavailable JONES, DR YELITZA Ma Consulting Unavailable JONES, DR YELITZA Ma Attending Unavailable JONES, DR YELITZA aM Admitting Unavailable KAREN, DR YELITZA Ma Primary Care Unavailable JONES, DR YELITZA Ma Primary Care Unavailable PALLAVI DILLON Consulting Unavailable PALLAVI DILLON Attending Unavailable PALLAVI DILLON Admitting Unavailable MISC, DR MORSE Attending Unavailable MISC, DR MORSE Admitting Unavailable JONES, DR YELITZA Ma Referring Unavailable JONES, DR YELITZA Ma Primary Care Unavailable MISC, DR MORSE Consulting Unavailable ZIEBER, DR UMBERTO [place] Consulting Unavailable JONES, DR YELITZA Ma Primary Care Unavailable JAYSON MEYER Attending Unavailable JAYSON MEYER Admitting Unavailable JAYSON MEYER Consulting Unavailable MD Yelitza Jones Primary Care Provider [phone] JAGDISH Estrada Attending Provider Yelitza Jones Primary Care Unavailable Patel Vasquez Admitting UnavailPatel Bell Attending UnavailSammi Puente Attending Unavailab Yelitza Elias Primary Care Unavailable Sammi Estrada Admitting Unavailab Yelitza Elias Unavailable KariHilary Unavailable Luisa Mckeon Unavailable Unavailable Primary Care Provider UnavailSAMMI Puente Attending Unavailab CLINT Nur Attending Unavailable EFRAIN JEAN BAPTISTE Attending Unavailable EFRAIN JEAN BAPTISTE Attending Unavailable Allergies Allergy Classification Reported Allergen(s) Allergy Type Date of Onset Reaction(s) Facility (1 source) NSAIDs Drug allergy (disorder) [facility] Repository (1 source) NSAIDs Drug allergy (disorder) 02-17-20 [facility] Repository (13 sources) NSAIDs Propensity to adverse reactions 02-17-20 21 Unknown [facility] Other (11 sources) Penicillin Drug Allergy Unknown [facility] Other (11 sources) SUMAtriptan Drug Allergy Unknown [facility] Other (7 sources) metroNIDAZOLE Drug Allergy 01-10-20 18 Unknown [facility] Other (5 sources) Pseudoephedrine Drug Allergy 02-16-20 19 Unknown [facility] Other (1 source) Allergies Reconciled Propensity to adverse reactions Unknown [facility] Other (1 source) patient allergy list reviewed by nurse or physicia Propensity to adverse reactions 03-16-20 Comment:Done [facility] Other (2 sources) Amoxicillin Drug Allergy 06-09-20 Rash [facility] Medications Current Medications Medication Drug Class(es) Dates Sig (Normalized) Sig (Original) [id number] 200 actuat albuterol 0.09 mg/actuat metered dose inhaler (2 sources) beta2-Adrenergic Agonist Start: 10-10-2023 take 1 puff(s) by inhalation every six hours as needed for wheezing albuterol HFA 90 mcg/act inhaler INHALE 1 PUFF EVERY 6 HOURS NEEDED FOR SHORTNESS OF BREATH OR WHEEZING 0 10/10/2023 Active ALPRAZolam 0.25 mg oral tablet (2 sources) Benzodiazepine Start: 05-22-2023 take 1 tablet by mouth twice daily as needed ALPRAZolam 0.25 MG 1 tablet Orally bid prn for 10 days May, Active azithromycin 250 mg oral tablet (12 sources) Macrolide Antimicrobial Start: 03-10-2023 Azithromycin 250 MG as directed Orally 2 tabs po today, then 1 tab daily x 4 more days for 5 Oct, Active Start: 03-10-2023 Start: 12-12-2022 Azithromycin 2 50 MG as directed Orally 2 tabs po today, then 1 tab daily x 4 more days for 5 Dec, Active dexamethasone 2 mg oral tablet (4 sources) Corticosteroid Start: 07-15-2023 dexAMETHasone (Decadron) 2 MG tablet Indications: Demyelinating disease of central nervous system (HCC) (CMS/HCC) 2mg 3 pills po X3 days,2 pills po daily X3 days , then 1 pill po daily X3 days then stop 9 days 18 pills 18 tablet 1 07/22/2023 Active lisdexamfetamine dimesylate 60 mg oral capsule (9 sources) Central Nervous System Stimulant Start: 12-25-2023 End: 01-24-2024 take 1 capsule by mouth in the morning Vyvanse 60 MG capsule Indications: ADD (attention deficit disorder) without hyperactivity Take 1 capsule (60 mg) by mouth in the morning. 30 capsule 0 12/25/2023 01/24/2024 Active Start: 11-19-2023 End: 12-25-2023 take 1 capsule by mouth in the morning lisdexamfetamine (Vyvanse) 40 MG capsule Indications: ADD (attention deficit disorder) without hyperactivity Take 1 capsule (40 mg) by mouth in the morning. 30 capsule 0 11/19/2023 12/25/2023 Discontinued take 1 capsule by mo [facility] every twenty-four hours Vyvanse 40 MG 1 capsule in the morning Orally Once a day Active modafinil 200 mg oral tablet (5 sources) Sympathomimetic-like Agent take 1 tablet by mouth every twenty-four hours Modafinil 200 MG 1 tablet once a day Active Modafinil Active naltrexone hydrochloride 50 mg oral tablet (13 sources) Opioid Antagonist take 3 mg by mouth in the morning naltrexone (Depade) 50 MG tablet Take 3 mg by mouth in the morning. 0 Active Naltrexone Activ e sertraline 50 mg oral tablet (20 sources) Serotonin Reuptake Inhibitor Start: 05-09-2023 sertraline (Zoloft) 50 MG tablet Indications: Migraine, unspecified, not intractable, without status migrainosus (CMS/HCC) TAKE 1 AND 1/2 TABLETS BY MOUTH EVERY DAY 135 tablet 2 05/09/2023 Active take 1 tablet by jasvir every twenty-four hours Zoloft 25 MG 1 tablet Orally Once a day Active Completed/Discontinued Medications Medication Drug Class(es) Dates Sig (Normalized) Sig (Original) 24 hr amphetamine aspartate 7.5 mg / amphetamine sulfate 7.5 mg / dextroamphetamine saccharate 7.5 mg / dextroamphetamine sulfate 7.5 mg extended release oral capsule (2 sources) Central Nervous System Stimulant Start: 4 End: 4 take 1 capsule by mouth every twenty-four hours in the morning amphetamine-dextroamp hetamine XR (Adderall XR) 30 MG 24 hr capsule Indications: ADD (attention deficit disorder) without hyperactivity Take 1 capsule (30 mg) by mouth in the morning. Do not crush or chew.. 30 capsule 0 12/01/2023 12/25/2023 Discontinued onabotulinumtoxina 200 unt injection (4 sources) Acetylcholine Release Inhibitor Start: 4 End: onabotulinumtoxinA (Botox) injection 200 Units Botox 200 units injection DIRECTED 155 UNITS INJECTION EVERY 90 DAYS 0 Active cyclobenzaprine hydrochloride 10 mg oral tablet (2 sources) Muscle Relaxant Start: 08-05-2022 take 1 tablet by mouth three times daily as needed for muscle spasms Cyclobenzaprine HCl 10 MG 1 tab(s) Orally 3 times a day prn muscle spasms Jul, Not-Taking fluconazole 150 mg oral tablet (7 sources) Azole Antifungal Start: 03-10-2023 take 1 tablet by mouth once as needed Diflucan 150 MG 1 tablet Orally once for 10 days March, Not-Taking/PRN Start: 03-10-2023 methylPREDNISolone 4 mg oral tablet (9 sources) Corticosteroid Start: 03-10-2023 methylPREDNISo lone 4 MG as directed Orally for 6 days March, Not-Taking/PRN Start: 08-05-2022 Medrol 4 MG as directed Orally as directed for 6 days Jul, Not-Taking ondansetron 4 mg disintegrating oral tablet (2 sources) Serotonin-3 Receptor Antagonist Start: 10-10-2023 End: 12-25-2023 ondansetron ODT (Zofran-ODT) 4 MG disintegrating tablet DISSOLVE 1 TABLET ON THE TONGUE EVERY 6 HOURS NEEDED FOR NAUSEA./ VOMITING 0 10/10/2023 12/25/2023 Discontinued triamcinolone acetonide 40 mg/ml injectable suspension (11 sources) Corticosteroid Start: 08-05-2022 Kenalog-40 Jul, 40 mg Start: 08-05-2022 Ubrelvy (2 sources) Ubrelvy Not-Taki ng Problems Active Problems Problem Classification Problem Date Documented Da te Episodic/Chronic Anxiety disorders (1 source) Generalized anxiety disorder; Translations: [Generalized anxiety disorder] Chronic Chronic kidney disease (11 sources) Chronic kidney disease; Translations: [Chronic kidney disease, unspecified] Chronic Chronic obstructive pulmonary disease and bronchiectasis (1 source) Bronchitis, not specified as acute or chronic Episodic Disorders of lipid metabolism (1 source) Hyperlipidemia; Translations: [Hyperlipidemia, unspecified] Chronic Disorders usually diagnosed in infancy, childhood, or adolescence (1 source) Attention deficit hyperactivity disorder, predominantly inattentive type; Translations: [Other specified behavioral and emotional disorders with onset usually occurring in childhood and adolescence] 12-25-2023 Chronic Fluid and electrolyte disorders (2 sources) [...] Translations: [Proteinuria, unspecified] Episodic Headache; including migraine (10 sources) Chronic migraine without aura, not intractable, without status migrainosus; Translations: [Migraine with aura, not intractable, without status migrainosus] Onset: 11-16-2020 06-09-2023 Chronic Immunizations and screening for infectious disease (5 sources) Contact with and (suspected) exposure to other viral communicable diseases; Translations: [Vaccination given] Onset: 10-21-2020 Episodic Influenza (2 sources) Upper respiratory tract infection due to Influenza; Translations: [Influenza due to unidentified influenza virus with other respiratory manifestations] Onset: 12-06-2013 Episodic Joint disorders and dislocations; trauma-related (6 sources) Unspecified internal derangement of right knee; Translations: [Derangement of right knee] Onset: 09-11-2020 Chronic Menstrual disorders (1 source) Excessive and frequent menstruation; Translations: [Excessive and frequent menstruation with regular cycle] Chronic Mood disorders (1 source) Dysthymia; Translations: [Dysthymic disorder] Chronic Multiple sclerosis (5 sources) Multiple sclerosis; Translations: [MULTIPLE SCLEROSIS] Onset: 12-23-2020 Chronic Nephritis; nephrosis; renal sclerosis (11 sources) 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; Translations: [Nephrotic syndrome] Onset: 11-29-2016 Chronic Nutritional deficiencies (2 sources) Vitamin D deficiency; Translations: [Vitamin D deficiency, unspecified] Onset: 06-09-2023 06-09-2023 Chronic Other aftercare (1 source) History and physical examination, follow-up; Translations: [Encounter for follow-up examination after completed treatment for conditions other than malignant neoplasm] Episodic Other circulatory disease (1 source) Other specified symptoms and signs involving the circulatory and respiratory systems Episodic Other connective tissue disease (5 sources) [...] Translations: [Diarrhea, unspecified] Episodic Other liver diseases (11 sources) Steatosis of liver; Translations: [Fatty (change of) liver, not elsewhere classified] Chronic Other nervous system disorders (2 sources) Demyelinating disease of central nervous system; Translations: [Demyelinating disease of central nervous system, unspecified] Onset: 06-09-2023 06-09-2023 Chronic Other nervous system disorders (2 sources) Small fiber neuropathy; Translations: [Polyneuropathy, unspecified] Onset: 06-09-2023 06-09-2023 Chronic Other nutritional; endocrine; and metabolic disorders (1 source) Overweight; Translations: [Overweight] Episodic Other nutritional; endocrine; and metabolic disorders (1 source) Body mass index 25-29 - overweight; Translations: [Body mass index (BMI) 28.0-28.9, adult] Episodic Other screening for suspected conditions (not mental disorders or infectious disease) (13 sources) Encounter for screening for lipoid disorders; [...] and of unspecified site] Onset: 01-21-2017 Episodic Complications of surgical procedures or medical care (2 sources) Drug-induced hypotension; Translations: [Hypotension due to drugs] Onset: 07-15-2017 06-09-2023 Episodic Disorders of teeth and jaw (1 source) Other specified disorders of temporomandibular joint; Translations: [Temporomandibular joint disc] Onset: 2014 Episodic Malaise and fatigue (5 sources) Other fatigue; Translations: [Fatigue] Onset: 08-21-2015 Episodic Nausea and vomiting (2 sources) Nausea, vomiting and diarrhea; Translations: [Nausea with vomiting, unspecified] Onset: 10-29-2017 06-09-2023 Episodic Nonspecific chest pain (1 source) Chest pain; Translations: [Chest pain, unspecified] Onset: 02-17-2018 Episodic Other lower respiratory disease (1 source) Cough; Translations: [Cough, unspecified] Onset: 09-04-2018 Episodic Other nervous system disorders (1 source) Ataxia, unspecified; Translations: [ATAXIA UNSPECIFIED] Onset: 04-16-2021 Episodic Other nervous system disorders (1 source) [...] Results Test Name Value Interpretation Reference Range Facility COVID/FLU/RSV RT-PCRon 11-14 SARS-CoV-2 (COVID-19) RNA ROXANA+probe Ql (Unsp spec) Negative [facility] Other COVID/FLU/RSV RT-PCR Negative [facility] [employer] [facility] Other COVID/FLU/RSV RT-PCR Positive [facility] [employer] [facility] Other COVID Quick Testingon 2022 Result Negative [facility] Other COVID/FLU/RSV RT-PCRon 10-09 SARS-CoV-2 (COVID-19) RNA ROXANA+probe Ql (Unsp spec) Positive [facility] [employer] [facility] Other COVID/FLU/RSV RT-PCR Negative [facility] [employer] [facility] Other MR head/brain wo/w conon MR head/brain wo/w con [facility] [place] [address] MRI Report Signed Patient: Celi Madrid MR#: [id number] : 1985 Acct:[id number] Age/Sex: 36 / F ADM Date: 09/12/22 Loc: MR Room: Type: [facility] Attending Dr: Sammi Estrada APRN, NP-C Copies to: Sammi Estrada APRN, CNP Ordering Provider: Sammi Estrada APRN, CNP Date of Service: 09/12/22 MR/MR [...] Kevin Lombardo M.D.09/13/2022 12:54 PM Dictation Location: [place] [address] Transcribed By: BRYON 09/13/22 1254 Dictated By: Kevin Lombardo II, MD 09/13/22 1238 Signed By: 09/13/22 1254 Normal [facility] ISTAT XRay CREon 09-12-2022 Creatinine [Mass/Vol] 0.7 mg/dL Normal 0.6-1.3 [facility] Comment on above: Result Comment: ER/E SD physician is notified/shown all ISTAT results. Critical values may be confirmed by laboratory testing if deemed necessary by ER attending doctor. Performed By: #### I SCRE #### [facility] [address] [place] [address] Point of Care testing , ISTAT GFR ( > 60 Normal [facility] Comment on above: Result Comment: GFR estimated reference range: According to KDOQI guidelines, <60 ml/min/1.73m2 is sufficient to diagnose a patient with chronic kidney disease. PERFORMED BY: [place] [address] PATHOLOGIST [employer] ENGINEER NANCY BROWNING M.D. Performed By: #### I SCRE #### [address] Point of Care testing , ISTAT GFR (Non- Am > 60 Normal [facility] Comment on above: Performed By: #### I SCRE #### [address] Point of Care testing , MR head/brain wo/w conon MR head/brain wo/w con [facility] [place] [address] MRI Report Signed Patient: Celi Madrid MR#: [id number] : 1985 Acct:[id number] Age/Sex: 35 / F ADM Date: 09/27/21 Loc: MR Room: Type: [facility] Attending Dr: Patel Vasquez DO Ordering Provider: [...] Kevin Lombardo M.D.09/27/2021 2:13 PM Dictation Location: [place] [address] Transcribed By: [facility] 09/27/21 1413 Dictated By: Kevin Lombardo II, MD 09/27/21 1359 Signed By: 09/27/21 1413 [facility] CBC AUTO DIFFon 08-14-2021 BASO # 0.0 103/ul Normal 0.0-0.1 [facility] Comment on above: Performed By: #### C MP, LIPID #### [facility] [address] [place] [address] Dr. Sd Jarrett Basophils/100 WBC (Bld) 0.5 % Normal 0.2-2.0 [facility] Comment on above: Performed By: #### C MP, LIPID #### [facility] [address] [place] [address] Dr. Sd Jarrett EO # 0.1 103/ul Normal 0.0-0.7 [facility] Comment on above: Performed By: #### C MP, LIPID #### [facility] [address] [place] [address] Dr. Sd Jarrett Eosinophils/100 WBC (Bld) 1.3 % Normal 0.9-7.0 [facility] Comment on above: Performed By: #### C MP, LIPID #### [facility] [address] [place] [address] Dr. Sd Jarrett Erythrocyte distribution width (RBC) [Ratio] 12.5 % Normal 11.0-15.0 [facility] Comment on above: Performed By: #### C MP, LIPID #### [facility] [address] [place] [address] Dr. Sd Jarrett Hematocrit (Bld) [Volume fraction] 40.3 % Normal 36.0-48.0 [facility] Comment on above: Performed By: #### C MP, LIPID #### [facility] [address] [place] [address] Dr. Sd Jarrett Hemoglobin (Bld) [Mass/Vol] 12.8 g/dL Normal 12.0-16.0 [facility] Comment on above: Performed By: #### C MP, LIPID #### [facility] [address] [place] [address] Dr. Sd Jarrett IG # 0.03 10e3/ul Normal 0.00-0.03 [facility] Comment on above: Performed By: #### C MP, LIPID #### [facility] [address] [place] [address] Dr. Sd Jarrett IG % 0.3 % Normal 0.0-0.5 [facility] Comment on above: Performed By: #### C MP, LIPID #### [facility] [address] [place] [address] [address] Sd Jarrett LYMPH # 2.3 103/ul Normal 1.2-3.8 [facility] Comment on above: Performed By: #### C MP, LIPID #### [facility] [address] [place] [address] [address] Sd Jarrett Lymphocytes/100 WBC (Bld) 26.7 % Normal 20.5-60.0 [facility] Comment on above: Performed By: #### C MP, LIPID #### [facility] [address] [place] [address] Dr. Sd Jarrett MANUAL DIFF REQ NO Normal [facility] Comment on above: Performed By: #### C MP, LIPID #### [facility] [address] [place] [address] Dr. Sd Jarrett MCH (RBC) [Entitic mass] 29.3 pg Normal 26.7-34.0 [facility] Comment on above: Performed By: #### C MP, LIPID #### [facility] [address] [place] [address] Dr. Sd Jarrett MCHC (RBC) [Mass/Vol] 31.8 g/dL Normal 29.9-35.2 [facility] Comment on above: Performed By: #### C MP, LIPID #### [facility] [address] [place] [address] Dr. Sd Jarrett MCV (RBC) [Entitic vol] 92.2 fL Normal 81.0-99.0 [facility] Comment on above: Performed By: #### C MP, LIPID #### [facility] [address] [place] [address] Dr. Sd Jarrett MONO # 0.5 103/ul Normal 0.3-0.8 [facility] Comment on above: Performed By: #### C MP, LIPID #### [facility] [address] [place] [address] Dr. Sd Jarrett Monocytes/100 WBC (Bld) 5.8 % Normal 1.7-12.0 [facility] Comment on above: Performed By: #### C MP, LIPID #### [facility] [address] [place] [address] Dr. Sd Jarrett NEUT # 5.6 103/ul Normal 1.4-6.5 [facility] Comment on above: Performed By: #### C MP, LIPID #### [facility] [address] [place] [address] Dr. Sd Jarrett Neutrophils/100 WBC (Bld) 65.4 % Normal 43.0-75.0 [facility] Comment on above: Performed By: #### C MP, LIPID #### [facility] [address] [place] [address] Dr. Sd Jarrett Platelet mean volume (Bld) [Entitic vol] 9.9 fL Normal 9.5-13.5 [facility] Comment on above: Performed By: #### C MP, LIPID #### [facility] [address] [place] [address] Dr. Sd Jarrett PLT 315 103/ul Normal 150-450 [facility] Comment on above: Performed By: #### C MP, LIPID #### [facility] [address] [place] [address] Dr. Sd Jarrett RBC 4.37 106/ul Normal 4.20-5.40 [facility] Comment on above: Performed By: #### C MP, LIPID #### [facility] [address] [place] [address] Dr. Sd Jarrett WBC 8.6 103/ul Normal 4.0-11.0 [facility] Comment on above: Performed By: #### C MP, LIPID #### [facility] [address] [place] [address] Dr. Sd Jarrett LIPID PROFILEon 08-14-2021 CHOL-HDL RATIO NORM SEE BELOW Normal [facility] Comment on above: Result Comment: 3.3 - 4.4 LOW RISK 4.4 - 7.1 AVERAGE RISK 7.1 - 11.0 MODERATE RISK >11.0 HIGH RISK Performed By: #### C MP, LIPID #### [facility] [address] [place] [address] Dr. Sd Jarrett Cholesterol [Mass/Vol] 294 mg/dL Critically high <=200 [facility] Comment on above: Performed By: #### C MP, LIPID #### [facility] [address] [place] [address] [address] Sd Jarrett Cholesterol in HDL [Mass/Vol] 64 mg/dL Normal [facility] Comment on above: Performed By: #### C MP, LIPID #### [facility] [address] [place] [address] [address] Sd Jarrett Cholesterol in LDL [Mass/Vol] 192.4 mg/dL Normal [facility] Comment on above: Performed By: #### C MP, LIPID #### [facility] [address] [place] [address] Dr. Sd Jarrett Cholesterol.total /Cholesterol in HDL [Mass ratio] 4.6 {ratio} Normal [facility] Comment on above: Performed By: #### C MP, LIPID #### [facility] [address] [place] [address] Dr. Sd Jarrett HDL NORMAL > or = 60 mg/dl - LO W CARDIOVASCULAR RISK <40 mg/dl - HIGH CARDIOVASCULAR RISK Normal [facility] Comment on above: Performed By: #### C MP, LIPID #### [facility] [address] [place] [address] Dr. Sd Jarrett LDL CALC NORMAL SEE BELOW Normal [facility] Comment on above: Result Comment: <100 mg/dl OPTIMAL 100 - 129 mg/dl NEAR OR ABOVE OPTIMAL 130 - 159 mg/dl BORDERLINE HIGH 160 - 189 mg/dl HIGH >190 mg/dl VERY HIGH Performed By: #### C MP, LIPID #### [facility] [address] [place] [address] [address] Sd Jarrett Triglyceride [Mass/Vol] 188 mg/dL Critically high <=150 [facility] Comment on above: Performed By: #### C MP, LIPID #### [facility] [address] [place] [address] [address] Sd Jarrett VLDL CALC 37.6 mg/dL Normal [facility] Comment on above: Performed By: #### C MP, LIPID #### [facility] [address] [place] [address] Dr. Sd Jarrett PROF 14(COMP METB)on 021 Albumin [Mass/Vol] 3.4 g/dL Critically low 3.5-5.0 [facility] Comment on above: Performed By: #### C MP, LIPID #### [facility] [address] [place] [address] Dr. Sd Jarrett Albumin/Globulin [Mass ratio] 0.9 {ratio} Normal [facility] Comment on above: Performed By: #### C MP, LIPID #### [facility] [address] [place] [address] Dr. Sd Jarrett ALP [Catalytic activity/Vol] 69 U/L Normal 38-126 [facility] Comment on above: Performed By: #### C MP, LIPID #### [facility] [address] [place] [address] Dr. Sd Jarrett ALT [Catalytic activity/Vol] 32 U/L Normal 9-52 [facility] Comment on above: Performed By: #### C MP, LIPID #### [facility] [address] [place] [address] Dr. Sd Jarrett Anion gap [Moles/Vol] 9.4 mmol/L Normal [facility] Comment on above: Performed By: #### C MP, LIPID #### [facility] [address] [place] [address] Dr. Sd Jarrett AST [Catalytic activity/Vol] 16 U/L Normal 14-36 [facility] Comment on above: Performed By: #### C MP, LIPID #### [facility] [address] [place] [address] Dr. Sd Jarrett Bilirubin [Mass/Vol] 0.2 mg/dL Normal 0.2-1.3 [facility] Comment on above: Performed By: #### C MP, LIPID #### [facility] [address] [place] [address] Dr. Sd Jarrett Calcium [Mass/Vol] 8.9 mg/dL Normal 8.4-10.2 [facility] Comment on above: Performed By: #### C MP, LIPID #### [facility] [address] [address] [address] Sd Jarrett Chloride [Moles/Vol] 100 mmol/L Normal 98-107 [facility] Comment on above: Performed By: #### C MP, LIPID #### [facility] [address] [address] [address] Sd Jarrett CO2 [Moles/Vol] 30.5 mmol/L Critically high 22.0-30.0 [facility] Comment on above: Performed By: #### C MP, LIPID #### [facility] [address] [address] [address] Sd Jarrett Creatinine [Mass/Vol] 0.60 mg/dL Normal 0.52-1.04 [facility] Comment on above: Performed By: #### C MP, LIPID #### [facility] [address] [place] [address] Dr. Sd Jarrett EGFR-AF EMIRATI >60 Normal >=60 [facility] Comment on above: Performed By: #### C MP, LIPID #### [facility] [address] [place] [address] Dr. Sd Jarrett EGFR-NON AF EMIRATI >60 Normal >=60 [facility] Comment on above: Performed By: #### C MP, LIPID #### [facility] [address] [place] [address] Dr. Sd Jarrett Globulin (S) [Mass/Vol] 4.0 g/dL Normal [facility] Comment on above: Performed By: #### C MP, LIPID #### [facility] [address] [place] [address] Dr. Sd Jarrett Glucose [Mass/Vol] 76 mg/dL Normal 74-106 [facility] Comment on above: Performed By: #### C MP, LIPID #### [facility] [address] [place] [address] Dr. Sd Jarrett Potassium [Moles/Vol] 3.9 mmol/L Normal 3.4-5.0 [facility] Comment on above: Performed By: #### C MP, LIPID #### [facility] [address] [address] [address] Sd Jarrett Protein [Mass/Vol] 7.4 g/dL Normal 6.1-8.2 [facility] Comment on above: Performed By: #### C MP, LIPID #### [facility] [address] [address] [address] Sd Jarrett Sodium [Moles/Vol] 136 mmol/L Critically low 137-145 [facility] Comment on above: Performed By: #### C MP, LIPID #### [facility] [address] [address] [address] Sd Jarrett Urea nitrogen [Mass/Vol] 10.0 mg/dL Normal 7.0-17.0 [facility] Comment on above: Performed By: #### C MP, LIPID #### [facility] [address] [address] [address] Sd Jarrett Urea nitrogen/Creatini ne [Mass ratio] 16.7 mg/mg Normal [facility] Comment on above: Performed By: #### C MP, LIPID #### [facility] [address] [address] [address] Sd Jarrett XR FOOT LIAM MIN [...] UMBERTO JUNG Date: 2021-07-05 14:12 Normal [facility] XR FOOT LIAM MIN 3 VIEWSon XR [...] JOEL COLE Date: 2021-06-12 15:05 Normal [facility] XR FOOT LIAM MIN 3 VIEWSon XR [...] UMBERTO JUNG Date: 2021-05-23 08:04 Normal [facility] CBC AUTO DIFFon 05-18-2021 BASO # 0.0 103/ul Normal 0.0-0.1 [facility] Comment on above: Performed By: #### C BC #### [facility] [address] [place], [place] [id number] Woody Yulissa Basophils/100 WBC (Bld) 0.4 % Normal 0.2-2.0 [facility] Comment on above: Performed By: #### C BC #### [facility] [address] [place], [place] [id number] Woody Yulissa EO # 0.1 103/ul Normal 0.0-0.7 [facility] Comment on above: Performed By: #### C BC #### [facility] [address] [place], [place] [id number] Woody Yulissa Eosinophils/100 WBC (Bld) 1.4 % Normal 0.9-7.0 [facility] Comment on above: Performed By: #### C BC #### [facility] [address] [place], [place] [id number] Wodoy Yulissa Erythrocyte distribution width (RBC) [Ratio] 12.4 % Normal 11.0-15.0 [facility] Comment on above: Performed By: #### C BC #### [facility] [address] [place] [address] Woody Duenas Hematocrit (Bld) [Volume fraction] 40.1 % Normal 36.0-48.0 [facility] Comment on above: Performed By: #### C BC #### [facility] [address] [place] [address] Woody Duenas Hemoglobin (Bld) [Mass/Vol] 13.2 g/dL Normal 12.0-16.0 [facility] Comment on above: Performed By: #### C BC #### [facility] [address] [place] [address] Woodyanika Duenas IG # 0.03 10e3/ul Normal 0.00-0.03 [facility] Comment on above: Performed By: #### C BC #### [facility] [address] [place] [address] Woody Duenas IG % 0.4 % Normal 0.0-0.5 [facility] Comment on above: Performed By: #### C BC #### [facility] [address] [place] [address] Woody Duenas LYMPH # 2.1 103/ul Normal 1.2-3.8 [facility] Comment on above: Performed By: #### C BC #### [facility] [address] [place] [address] Woody Duenas Lymphocytes/100 WBC (Bld) 29.1 % Normal 20.5-60.0 [facility] Comment on above: Performed By: #### C BC #### [facility] [address] [place] [address] Woody Duenas MANUAL DIFF REQ NO Normal [facility] Comment on above: Performed By: #### C BC #### [facility] [address] [place] [address] Woody Duenas MCH (RBC) [Entitic mass] 29.5 pg Normal 26.7-34.0 [facility] Comment on above: Performed By: #### C BC #### [facility] [address] [place], [place] [address] Woodyanika Duenas MCHC (RBC) [Mass/Vol] 32.9 g/dL Normal 29.9-35.2 [facility] Comment on above: Performed By: #### C BC #### [facility] [address] [place], [place] [address] Woodyanika Duenas MCV (RBC) [Entitic vol] 89.7 fL Normal 81.0-99.0 [facility] Comment on above: Performed By: #### C BC #### [facility] [address] [id number] Woody Yulissa MONO # 0.4 103/ul Normal 0.3-0.8 [facility] Comment on above: Performed By: #### C BC #### [facility] [address] [id number] Woody Yulissa Monocytes/100 WBC (Bld) 5.6 % Normal 1.7-12.0 [facility] Comment on above: Performed By: #### C BC #### [facility] [address] [phone] Woody Yulissa NEUT # 4.6 103/ul Normal 1.4-6.5 [facility] Comment on above: Performed By: #### C BC #### [facility] [address] [phone] Woody Yulissa Neutrophils/100 WBC (Bld) 63.1 % Normal 43.0-75.0 [facility] Comment on above: Performed By: #### C BC #### [facility] [address] [place], [place] [address] Woody Yulissa Platelet mean volume (Bld) [Entitic vol] 9.3 fL Critically low 9.5-13.5 [facility] Comment on above: Performed By: #### C BC #### [facility] [address] [place], [place] [address] Woody Yulissa PLT 278 103/ul Normal 150-450 [facility] Comment on above: Performed By: #### C BC #### [facility] [address] [place], [place] [address] Woody Yulissa RBC 4.47 106/ul Normal 4.20-5.40 [facility] Comment on above: Performed By: #### C BC #### [facility] [address] [place], [place] [address] Woody Yulissa WBC 7.3 103/ul Normal 4.0-11.0 [facility] Comment on above: Performed By: #### C BC #### [facility] [address] [place], [place] [address] Woody Yulissa FERRITINon 05-18-2021 Ferritin [Mass/Vol] 75.0 ng/mL Normal 6.2-137.0 [facility] Comment on above: Performed By: #### C MP, LIPID #### [facility] [address] [place], [place] [address] Dr. Sd Jarrett RENAL FUNCTION PANELon 05-18 Albumin [Mass/Vol] 3.4 g/dL Critically low 3.5-5.0 [facility] Comment on above: Performed By: #### R ENAL ####[facility] [address] [place], [place] [address]Nbwzzi Yulissa Calcium [Mass/Vol] 8.9 mg/dL Normal 8.4-10.2 [facility] Comment on above: Performed By: #### R ENAL ####[facility] [address] [phone] Yulissa Chloride [Moles/Vol] 105 mmol/L Normal 98-107 [facility] Comment on above: Performed By: #### R ENAL ####[facility] [address] [place], [place] [address]Lhbhnf Yulissa CO2 [Moles/Vol] 27.6 mmol/L Normal 22.0-30.0 [facility] Comment on above: Performed By: #### R ENAL ####[facility] [address] [place], [place] [address]Wdncqn Yulissa Creatinine [Mass/Vol] 0.64 mg/dL Normal 0.52-1.04 [facility] Comment on above: Performed By: #### R ENAL ####[facility] [address] [place], [place] [address]Opefsl Yulissa EGFR-AF EMIRATI >60 Normal >=60 [facility] Comment on above: Performed By: #### R ENAL ####[facility] [address] [place], [place] [address]Owkmaa Yulissa EGFR-NON AF EMIRATI >60 Normal >=60 [facility] Comment on above: Performed By: #### R ENAL ####[facility] [address] [place], [place] [address]Ucpwrf Yulissa Glucose [Mass/Vol] 62 mg/dL Critically low 74-106 [facility] Comment on above: Performed By: #### R ENAL ####[facility] [address] [place], [place] [address]Qcpeex Yulissa Phosphate [Mass/Vol] 2.4 mg/dL Critically low 2.5-4.5 [facility] Comment on above: Performed By: #### R ENAL ####[facility] [address] [place], [place] [address]Bgvxir Yulissa Potassium [Moles/Vol] 4.1 mmol/L Normal 3.4-5.0 [facility] Comment on above: Performed By: #### R ENAL ####[facility] [address] [place] [address]Moktvz Yulissa Sodium [Moles/Vol] 141 mmol/L Normal 137-145 [facility] Comment on above: Performed By: #### R ENAL ####[facility] [address] [place], [place] [address]Mhwozz Yulissa Urea nitrogen [Mass/Vol] 12.0 mg/dL Normal 7.0-17.0 [facility] Comment on above: Performed By: #### R ENAL ####[facility] [address] [place], [place] [address]Wrdewf Yulissa UA RANDOM W/MICROSCOPICon BACTERIA SMALL Abnormal NONE SEEN [facility] Comment on above: Performed By: #### U AMIC ####[facility] [address] [place], [place] [address]Lqwhht Yulissa Bilirubin Ql (U) Negative Normal NEGATIVE [facility] Comment on above: Performed By: #### U AMIC ####[facility] [address] [place], [place] [address]Emclgh Yulissa CAST NONE SEEN Normal NONE SEEN [facility] Comment on above: Performed By: #### U AMIC ####[facility] [address] [place], [place] [address]Ebfuuv Yulissa Clarity (U) CLEAR Normal CLEAR [facility] Comment on above: Performed By: #### U AMIC ####[facility] [address] [place], [place] [address]Ylsngz Yulissa Color (U) YELLOW Normal YELLOW [facility] Comment on above: Performed By: #### U AMIC ####[facility] [address] [place] [address]Adhvqc Yulissa Crystals LM Nom (Urine sed) NONE SEEN Normal NONE SEEN [facility] Comment on above: Performed By: #### U AMIC ####[facility] [address]fsq[address]73[address] [place], [place] [address]Uiwvvj Yulissa Epithelial cells LM Ql (Urine sed) MODERATE Abnormal NONE SEEN /RARE [facility] Comment on above: Performed By: #### U AMIC ####[facility] Ymzczyjiv[address]5866 [place], [place] [address]Ovagkb Yulissa Glucose Ql (U) Negative Normal NEGATIVE [facility] Comment on above: Performed By: #### U AMIC ####[facility] Antitzz[address]y18[address] [place], [place] [address]Jkrurc Yulissa Hemoglobin Ql (U) MODERATE Abnormal NEGATIVE [facility] Comment on above: Performed By: #### U AMIC ####[facility] Aokviwffbj8[address] [place], [place] [address]Irokps Yulissa Ketones Ql (U) Negative Normal NEGATIVE [facility] Comment on above: Performed By: #### U AMIC ####[facility] [address] [place] [address]Nckpcc Yulissa LEUKOCYTES Negative Normal NEGATIVE [facility] Comment on above: Performed By: #### U AMIC ####[facility] [address] [id number] Yulissa MUCOUS MODERATE Abnormal NONE SEEN [facility] Comment on above: Performed By: #### U AMIC ####[facility] [address] [id number] Yulissa Nitrite Ql (U) Negative Normal NEGATIVE [facility] Comment on above: Performed By: #### U AMIC ####[facility] [address] [id number] Yulissa pH (U) 5.5 [pH] Normal 5-9 [facility] Comment on above: Performed By: #### U AMIC ####[facility] [address] [place], [place] [address]Gerken Yulissa RBC 0-2 Normal 0-2 [facility] Comment on above: Performed By: #### U AMIC ####[facility] [address] [place], [place] [address]Gerken Yulissa SPEC GRAVITY >=1.030 Abnormal 1.005-<=1.02 5 [facility] Comment on above: Performed By: #### U AMIC ####[facility] [address] [place] [address] Yulissa UA PROTEIN 100 mg/dl Abnormal NEGATIVE/ TRACE [facility] Comment on above: Performed By: #### U AMIC ####[facility] [address] [id number] Yulissa Urobilinogen Qn (U) 0.2 {Ratna'U}/dL Normal 0.2 - 1.0 [facility] Comment on above: Performed By: #### U AMIC ####[facility] [address] [place], [place] [address]Gerken Yulissa WBC 0-2 Abnormal NONE SEEN [facility] Comment on above: Performed By: #### U AMIC ####[facility] [address] [place] [address] Yulissa URINE T PROTEIN CREAT RATIOo n 07-09-2021 Protein (U) [Mass/Vol] 98.3 mg/dL Critically high <=12.0 [facility] Comment on above: Performed By: #### C MP, LIPID #### [facility] [address] [address] [address] Sd Jarrett UR PROT CREAT RAT 0.41 Normal [facility] Comment on above: Performed By: #### C MP, LIPID #### [facility] [address] [address] [address] Sd Jarrett URINE CREAT 240.76 mg/dL Normal 20.00-300.00 [facility] Comment on above: Performed By: #### C MP, LIPID #### [facility] [address] [address] [address] Sd Jarrett QUANTIFERON TB GOLD PLUS (NO N-INC)on 05-09-2021 Comment Incubation performed. Normal [facility] Comment on above: Performed By: #### Q NTTBG ####[facility] Y[address] Yulissa Criteria Comment Normal [facility] Comment on above: Result Comment: The QuantiFERON-TB Gold Plus result is determined by subtracting the Nil value from either TB antigen (Ag) tube. The mitogen tube serves as a control for the test. Performed By: #### Q NTTBG ####[facility] V[address]xi[address] Yulissa Mitogen Value >10.00 Normal [facility] Comment on above: Performed By: #### Q NTTBG ####[facility] Xrtqzyvceu[address] Yulissa Nill Value 0.00 IU/mL Normal [facility] Comment on above: Performed By: #### Q NTTBG ####[facility] Vm[address]hi[address] Yulissa Quantiferon Gold Plus Negative Normal Negative [facility] Comment on above: Result Comment: Chem iluminescence immunoassay methodology Performed By: #### Q NTTBG ####[facility] [address] [id number] Yulissa TB1 Ag Value 0.00 IU/mL Normal [facility] Comment on above: Performed By: #### Q NTTBG ####[facility] [address] [id number] Yulissa TB2 Ag Value 0.00 IU/mL Normal [facility] Comment on above: Performed By: #### Q NTTBG ####[facility] Qyljvnnbnm[address] Yulissa HEPATITIS B SURFACE ANTIBODY , QUANTon 05-08-2021 Hepatitis B Surf AB Quant 688.8 mIU/mL Normal Immunity>9.9 [facility] Comment on above: Result Comment: Stat us of Immunity Anti-HBs Level Inconsistent with Immunity 0.0 - 9.9 Consistent with Immunity >9.9 Performed By: #### H EPBSRF ####[facility] [address] [place] [address] Yulissa MMR IMMUNITYon 05-08-2021 Mumps Abs, IgG <9.0 Critically low Immune >10.9 [facility] Comment on above: Result Comment: Nega tive <9.0 Equivocal 9.0 - 10.9 Positive >10.9 A positive result generally indicates past exposure to Mumps virus or previous vaccination. Performed By: #### M MRIMMU ####[facility] [address] Yuilssa Rubella Antibodies, IgG 3.59 index Normal Immune >0.99 [facility] Comment on above: Result Comment: Non- immune <0.90 Equivocal 0.90 - 0.99 Immune >0.99 Performed By: #### M MRIMMU ####[facility] [address] Y[place]issa Rubeola Ab, IgG 280.0 AU/mL Normal Immune >16.4 The [facility] Comment on above: Result Comment: Nega tive <13.5 Equivocal 13.5 - 16.4 Positive >16.4 Presence of antibodies to Rubeola is presumptive evidence of immunity except when acute infection is suspected. Performed By: #### M MRIMMU ####[facility] [address] [address]Geranika Duenas VARICELLA IGG ABon 1 Varicella Zoster IgG 639 index Normal Immune >165 [facility] Comment on above: Result Comment: Nega tive <135 Equivocal 135 - 165 Positive >165 A positive result generally indicates exposure to the pathogen or administration of specific immunoglobulins, but it is not indication of active infection or stage of disease. Performed By: #### C MP, LIPID #### [facility] [address] [place] [address] Dr. Sd Jarrett THYROGLOBULIN ABon 1 Thyroglobulin Antibody <1.0 Normal 0.0-0.9 [facility] Comment on above: Result Comment: Thyr oglobulin Antibody measured by [employer] Methodology Performed By: #### T HYGAB #### [facility] [address] [place] [address] Woody Duenas FREE T4on 03-23-2021 Free T4 [Mass/Vol] 0.91 ng/dL Normal 0.78-2.19 [facility] Comment on above: Performed By: #### C MP, LIPID #### [facility] [address] [place] [address] Dr. Sd Jarrett TSHon 03-23-2021 TSH 1.710 uIU/mL Normal 0.470-4.680 [facility] Comment on above: Performed By: #### T SH #### [facility] [address] [place] [address] Woody Duenas TSH RANGE SEE BELOW Normal [facility] Comment on above: Result Comment: <0.3 4 UIU/ml HYPERTHYROID 0.34-5.60 UIU/ml EUTHYROID >5.60 UIU/ml HYPOTHYROID Performed By: #### T SH #### [facility] [address] [place] [address] Woody Duenas MYELIN BASIC PROT CSFon -1 4-2021 Myelin Basic Protein, CSF 2.1 ng/mL Normal 0.0-3.7 [facility] Comment on above: Performed By: #### M BPCSF ####[facility] [address] [place], [place] [address]Nquokd Yulissa IMMUNOGLOBULIN G SYNTHESIS R ATE, CSFon 02-20-2021 Albumin [Mass/Vol] 3.7 g/dL Critically low 3.8-4.8 [facility] Comment on above: Performed By: #### I MMUNGC ####[facility] [address] [place], [place] [address]Qvdruf Yulissa Albumin, CSF 13 mg/dL Normal 11-48 [facility] Comment on above: Performed By: #### I MMUNGC ####[facility] [address] [place], [place] [address]Bgprhz Yulissa IgG, Quant, CSF 1.9 mg/dL Normal 0.0-8.6 [facility] Comment on above: Performed By: #### I MMUNGC ####[facility] [address] [place], [place] [address]Ufxzpi Yulissa IgG, Syn Rate,CSF -1.5 mg/day Normal 9.9 TO +3.3 [facility] Comment on above: Performed By: #### I MMUNGC ####[facility] [address] [place], [place] [address]Dwhmre Yulissa Immunoglobulin G, Qn, Serum 935 mg/dL Normal [phone] [facility] Comment on above: Performed By: #### I MMUNGC ####[facility] [address] [place], [place] [address]Nhashh Yulissa OILGOCLONAL BANDING CSFon Oligoclonal Bands Comment Normal [facility] Comment on above: Result Comment: Zero (0) oligoclonal bands were observed in the CSF. . Interpretation: Criteria for Positivity: Four (4) or more oligoclonal bands observed only in the CSF have been shown to be most consistent with MS using our method. [Tiffanie , Calvin EL, Warren BG, and Zachery JA: Cerebrospinal Fluid Oligoclonal Bands [...] Performed By: #### C MP, LIPID #### [facility] [address] [place] [address] Dr. Sd Jarrett CELL COUNT CSFon 02-16-2021 CSF CLARITY CLEAR Normal CLEAR [facility] Comment on above: Performed By: #### C CCSF ####[facility] [address] [place] [address]Woody Duenas Performed By: #### C MP, LIPID #### [facility] [address] [address] [address] Sd Jarrett CSF COLOR COLORLESS Normal COLORLESS [facility] Comment on above: Performed By: #### C CCSF ####[facility] [address] [place] [address]Geranika Duenas Performed By: #### C MP, LIPID #### [facility] [address] [address] [address] Sd Jarrett CSF RBC 11 cubic mm Normal [facility] Comment on above: Performed By: #### C CCSF ####[facility] [address] [place] [address]Geranika Duenas CSF RBC 1 cubic mm Normal [facility] Comment on above: Performed By: #### C MP, LIPID #### [facility] [address] [address] [address] Sd Jarrett CSF VOLUME 10.0 mL Normal [facility] Comment on above: Performed By: #### C CCSF ####[facility] V[address] [place] Performed By: #### C MP, LIPID #### [facility] [address] [address] [address] Sd Jarrett CSF WBC 0 cubic mm Normal [facility] Comment on above: Performed By: #### C CCSF ####[facility] Rhjnif[address] [place] Performed By: #### C MP, LIPID #### [facility] [address] [address] [address] Sd Jarrett CSF WBC HEADER REFERENCE RANGE 5-10 WBC/cubic mm = BORDERLINE Normal [facility] Comment on above: Performed By: #### C CCSF ####[facility] [address] [place] [address] Yulissa Performed By: #### C MP, LIPID #### [facility] [address] [address] [address] Sd Jarrett GLUCOSE CSFon 02-16-2021 GLUCOSE CSF 59 mg/dL Normal 40-70 [facility] Comment on above: Performed By: #### G LUCSF, PROTCSF ####[facility] Y[address] [place] LAB TESTINGon 02-16-2021 RECV HEADER SEE SCANNED REPORT IN [facility] Comment on above: Performed By: #### M ISC ####[facility] R[address]fluk[address] [place] REV FROM REF LAB 02/16/2021 [facility] Comment on above: Performed By: #### M ISC ####[facility] L[address]mc[address] [place] SENT TO REF LAB 02/16/2021 [facility] Comment on above: Performed By: #### M ISC ####[facility] Hevvsciuqb[address] [place] RECV HEADER SEE SCANNED REPORT IN HPF Normal [facility] Comment on above: Performed By: #### M ISC ####[facility] [address] [place], [place] [address]Dlvfvs [place] REV FROM REF LAB 02/21/2021 Normal [facility] Comment on above: Performed By: #### M ISC ####[facility] [address] [place], [place] [address]Xkyede Karen SENT TO REF LAB 02/17/2021 Normal [facility] Comment on above: Performed By: #### M ISC ####[facility] [address] [place], [place] [address]Heemnb Karen PROTEIN CSFon 02-16-2021 TOT PROT CSF 29 mg/dL Normal 12-60 [facility] Comment on above: Performed By: #### G LUCSF, PROTCSF ####[facility] [address] [place], [place] [address]Xlnvde Karen CNOVon 02-13-2021 CNOV Office Visit (NEMEFV ) -- CELI MADRID ([id number]) 1985 F Date Time Provider Department 02/13/21 10:00 AM HARDIK GARCIA NEMJAIME During your visit today, we recorded the following information about you: Temperature Pulse Blood pressure Weight 97.8 degrees 91/minute 114/75 71.6 kg Height 1.575 m Hardik Garcia MD 02/13/2021 11:20 AM [facility] NEW EVALUATION Referral source: Yelitza Jones MD [facility] [id number] PRINCIPAL NEUROLOGIC DIAGNOSIS: Right arm pain, cognitive [...] expected to be with me at the [facility]. Ms. Madrid notes that in 2016, she had a lot of fatigue and was getting sick frequently. 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 Castillo in [place] at the [facility]. He recommended Ocrevus. She has discussed this with her liver doctor and gotten the ok to proceed with it. Dr. Castillo has suggested a lumbar puncture, but that has not been done yet. Prior to the above, she denies any history of episodic neurologic impairment that might be consistent with [employer] demyelination, such as unilateral visual loss, focal [...] the arms and legs was intact including eeiqd-yq-hqhxj, rapid-alternating, and fine movements. Sensory examination: Light [...] which included preparing to see the patient, nuci-hx-tbtm patient care, performing a medically appropriate examination, completing clinical documentation, reviewing records, and counseling/educating the patient/family. Hardik Garcia MD Staff Neurologist [facility] for Multiple Sclerosis Referring Provider: SELF [200] [...] extremity [M79.601] Order(s):DAVE/ANGIOTENSIN BLD [SQACE] Order #: [id number] FUTURE ANTI BRENT ID [SQENAID] Order #: [id number] FUTURE JASVIR BY IFA WITH REFLEX [SQANAIFR] Order #: [id number] FUTURE FOLATE SERUM [SQSERFOL] Order #: [id number] FUTURE HOMOCYSTEINE [SQHOMCYS] Order #: [id number] FUTURE LYME AB LATE >30 DAYS SYMPTOMS [SQLMLATE] Order #: [id number] FUTURE METHYLMALONIC ACID [SQMMA] Order #: [id number] FUTURE SYPHILIS TOTAL W/REFLEX [SQSYPHTX] Order #: [id number] FUTURE TSH BLD [SQTSH] Order #: [id number] FUTURE COPPER BLOOD [SQCOPPER] Order #: [id number] FUTURE CERULOPLASMIN BLD [SQCERULO] Order #: [id number] FUTURE Prescriptions as of 02/13/2021 Sig: ROSUVASTATIN [...] Status:Closed by HARDIK GARCIA MD on 02/13/21 [facility] PROGRESSon 02-13-2021 PROGRESS HNO ID: [id number] Author: Hardik Garcia Service: ? Author Type: Physician Type: Progress Notes Filed: 02/13/2021 11:20 AM Note Text: [facility] NEW EVALUATION Referral source: Yelitza Jones MD [address] [place] [phone] PRINCIPAL NEUROLOGIC DIAGNOSIS: Right arm pain, cognitive [...] expected to be with me at the [facility]. Ms. Madrid notes that in 2016, she had a lot of fatigue and was getting sick frequently. 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 Castillo in [place] at the [facility]. He recommended Ocrevus. She has discussed this with her liver doctor and gotten the ok to proceed with it. Dr. Castillo has suggested a lumbar puncture, but that has not been done yet. Prior to the above, she denies any history of episodic neurologic impairment that might be consistent with [employer] MANAGER demyelination, such as unilateral visual loss, focal [...] the arms and legs was intact including pzsvi-ap-klnon, rapid-alternating, and fine movements. Sensory examination: Light [...] which included preparing to see the patient, onxb-wf-jveh patient care, performing a medically appropriate examination, completing clinical documentation, reviewing records, and counseling/educating the patient/family. Hardik Garcia MD Staff Neurologist [facility] Multiple Sclerosis Normal [facility] MR OUTSIDE CD DICOM IMPORT - NBNRon 01-05-2021 MR OUTSIDE CD DICOM IMPORT -NBNR Images were obtained outside of [facility] [id number] Normal [facility] MR OUTSIDE CD DICOM IMPORT -NBNR Images were obtained outside of [facility] [id number] Normal [facility] XR OUTSIDE CD DICOM IMPORT - NBNRon 01-05-2021 XR OUTSIDE CD DICOM IMPORT -NBNR Images were obtained outside of [facility] [id number] Normal [facility] TOM VIRUS DNA, PCR WHOLE BLOO Don 12-28-2020 TOM Virus DNA,PCR (Whole Blood) Negative Normal Negative [facility] Comment on above: Result Comment: No J CV DNA detected This test was developed and its performance characteristics determined by [facility]. It has not been cleared or approved by the Food and Drug Administration. The FDA has determined that such clearance or approval is not necessary. Performed By: #### J CVPCR ####[facility] Gfk[address] [place] QUANTIFERON TB GOLD PLUS (NO N-INC)on 12-27-2020 Comment Incubation performed. Normal [facility] Comment on above: Performed By: #### Q NTTBG ####[facility] Ddxjz[address]iw[address] [place] Criteria Comment Normal [facility] Comment on above: Result Comment: The QuantiFERON-TB Gold Plus result is determined by subtracting the Nil value from either TB antigen (Ag) tube. The mitogen tube serves as a control for the test. Performed By: #### Q NTTBG ####[facility] Drkfnvuwxb[address] [place] Mitogen Value >10.00 Normal [facility] Comment on above: Performed By: #### Q NTTBG ####[facility] Zy[address]azonw[address] [place] Nill Value 0.17 IU/mL Normal [facility] Comment on above: Performed By: #### Q NTTBG ####[facility] [address] [place] [address] [place] Quantiferon Gold Plus Negative Normal Negative [facility] Comment on above: Performed By: #### Q NTTBG ####[facility] [address] [place] [address] [place] TB1 Ag Value 0.16 IU/mL Normal [facility] Comment on above: Performed By: #### Q NTTBG ####[facility] [address] [place] [address] [place] TB2 Ag Value 0.17 IU/mL Normal [facility] Comment on above: Performed By: #### Q NTTBG ####[facility] [address] [place] [address] [place] HEPATITIS PANEL, ACUTEon HBsAg Screen Negative Normal Negative [facility] Comment on above: Performed By: #### C MP, LIPID #### [facility] [address] [place] [address] Dr. Sd Jarrett Hep A Ab, IgM Negative Normal Negative [facility] Comment on above: Performed By: #### C MP, LIPID #### [facility] [address] [place] [address] Dr. Sd Jarrett Hep B Core Ab, IgM Negative Normal Negative [facility] Comment on above: Performed By: #### C MP, LIPID #### [facility] [address] [place] [address] Dr. Sd Jarrett Hep C Virus Ab <0.1 Normal 0.0-0.9 [facility] Comment on above: Result Comment: Nega tive: < 0.8 Indeterminate: 0.8 - 0.9 Positive: > 0.9 . The CDC recommends that a positive HCV antibody result be followed up with a HCV Nucleic Acid Amplification test (982265). Performed By: #### C MP, LIPID #### [facility] [address] [place] [address] Dr. Sd Jarrett LYME DISEASE AB, TOTAL AND I GM W/WB REFEon 12-25-2020 Lyme Disease Ab, Quant, IgM <0.80 Normal 0.00-0.79 [facility] Comment on above: Result Comment: Nega tive <0.80 Equivocal 0.80 - 1.19 Positive >1.19 . IgM levels may peak at 3-6 weeks post infection, then gradually decline. Performed By: #### C MP, LIPID #### [facility] [address] [place] [address] Dr. Sd Jarrett Lyme IgG/IgM Ab <0.91 Normal 0.00-0.90 [facility] Comment on above: Result Comment: Nega tive <0.91 Equivocal 0.91 - 1.09 Positive >1.09 Performed By: #### C MP, LIPID #### [facility] [address] [place] [address] Dr. Sd Jarrett VARICELLA ZOSTER VIRUS IGM Q UANTon 12-25-2020 Varicella-Zoster Ab, IgM <0.91 Normal 0.00-0.90 [facility] Comment on above: Result Comment: Nega tive <0.91 Borderline 0.91 - 1.09 Positive >1.09 Performed By: #### V ARCIGM ####[facility] [address] [place] [address]Wood[place] IMMUNOGLOBULIN IGG QUANTITAT IVEon 12-24-2020 Immunoglobulin G, Qn, Serum 839 mg/dL Normal 586-1602 [facility] Comment on above: Performed By: #### C MP, LIPID #### [facility] [address] [place] [address] Dr. Sd Jarrett IMMUNOGLOBULIN IGM QUANTITAT IVEon 12-24-2020 Immunoglobulin M, Qn, Serum 170 mg/dL Normal 26-217 [facility] Comment on above: Performed By: #### C MP, LIPID #### [facility] [address] [place] [address] Dr. Sd Jarrett VARICELLA IGG ABon 1 Varicella Zoster IgG 641 index Normal Immune >165 [facility] Comment on above: Result Comment: Nega tive <135 Equivocal 135 - 165 Positive >165 A positive result generally indicates exposure to the pathogen or administration of specific immunoglobulins, but it is not indication of active infection or stage of disease. Performed By: #### C MP, LIPID #### [facility] [address] [place] [address] Dr. Sd Jarrett CBC AUTO DIFFon 12-23-2020 BASO # 0.0 103/ul Normal 0.0-0.1 [facility] Comment on above: Performed By: #### C MP, LIPID #### [facility] [address] [place] [address] Dr. Sd Jarrett Basophils/100 WBC (Bld) 0.7 % Normal 0.2-2.0 [facility] Comment on above: Performed By: #### C MP, LIPID #### [facility] [address] [place] [address] Dr. Sd Jarrett EO # 0.2 103/ul Normal 0.0-0.7 [facility] Comment on above: Performed By: #### C MP, LIPID #### [facility] [address] [place] [address] Dr. Sd Jarrett Eosinophils/100 WBC (Bld) 4.1 % Normal 0.9-7.0 [facility] Comment on above: Performed By: #### C MP, LIPID #### [facility] [address] [place] [address] Dr. Sd Jarrett Erythrocyte distribution width (RBC) [Ratio] 12.8 % Normal 11.0-15.0 [facility] Comment on above: Performed By: #### C MP, LIPID #### [facility] [address] [place] [address] Dr. Sd Jarrett Hematocrit (Bld) [Volume fraction] 38.1 % Normal 36.0-48.0 [facility] Comment on above: Performed By: #### C MP, LIPID #### [facility] [address] [place] [address] Dr. Sd Jarrett Hemoglobin (Bld) [Mass/Vol] 12.3 g/dL Normal 12.0-16.0 [facility] Comment on above: Performed By: #### C MP, LIPID #### [facility] [address] [place] [address] Dr. Sd Jarrett IG # 0.02 10e3/ul Normal 0.00-0.03 [facility] Comment on above: Performed By: #### C MP, LIPID #### [facility] [address] [place] [address] Dr. Sd Jarrett IG % 0.5 % Normal 0.0-0.5 [facility] Comment on above: Performed By: #### C MP, LIPID #### [facility] [address] [place] [address] Dr. Sd Jarrett LYMPH # 1.2 103/ul Normal 1.2-3.8 [facility] Comment on above: Performed By: #### C MP, LIPID #### [facility] [address] [place] [address] Dr. Sd Jarrett Lymphocytes/100 WBC (Bld) 26.2 % Normal 20.5-60.0 [facility] Comment on above: Performed By: #### C MP, LIPID #### [facility] [address] [place] [address] Dr. Sd Jarrett MANUAL DIFF REQ NO Normal [facility] Comment on above: Performed By: #### C MP, LIPID #### [facility] [address] [place] [address] Dr. Sd Jarrett MCH (RBC) [Entitic mass] 29.1 pg Normal 26.7-34.0 [facility] Comment on above: Performed By: #### C MP, LIPID #### [facility] [address] [place] [address] [address] Sd Jarrett MCHC (RBC) [Mass/Vol] 32.3 g/dL Normal 29.9-35.2 [facility] Comment on above: Performed By: #### C MP, LIPID #### [facility] [address] [place] [address] Dr. Sd Jarrett MCV (RBC) [Entitic vol] 90.3 fL Normal 81.0-99.0 [facility] Comment on above: Performed By: #### C MP, LIPID #### [facility] [address] [place] [address] Dr. Sd Jarrett MONO # 0.3 103/ul Normal 0.3-0.8 [facility] Comment on above: Performed By: #### C MP, LIPID #### [facility] [address] [place] [address] Dr. Sd Jarrett Monocytes/100 WBC (Bld) 7.2 % Normal 1.7-12.0 [facility] Comment on above: Performed By: #### C MP, LIPID #### [facility] [address] [place] [address] Dr. Sd Jarrett NEUT # 2.7 103/ul Normal 1.4-6.5 [facility] Comment on above: Performed By: #### C MP, LIPID #### [facility] [address] [place] [address] Dr. Sd Jarrett Neutrophils/100 WBC (Bld) 61.3 % Normal 43.0-75.0 [facility] Comment on above: Performed By: #### C MP, LIPID #### [facility] [address] [place] [address] Dr. Sd Jarrett Platelet mean volume (Bld) [Entitic vol] 9.3 fL Critically low 9.5-13.5 [facility] Comment on above: Performed By: #### C MP, LIPID #### [facility] [address] [place] [address] Dr. Sd Jarrett PLT 177 103/ul Normal 150-450 [facility] Comment on above: Performed By: #### C MP, LIPID #### [facility] [address] [place] [address] [address] Sd Jarrett RBC 4.22 106/ul Normal 4.20-5.40 [facility] Comment on above: Performed By: #### C MP, LIPID #### [facility] [address] [place] [address] [address] Sd Jarrett WBC 4.4 103/ul Normal 4.0-11.0 [facility] Comment on above: Performed By: #### C MP, LIPID #### [facility] [address] [place] [address] [address] Sd Jarrett PREG QUANT HCGon 12-23-2020 HCG QUANT <1 Normal [facility] Comment on above: Performed By: #### C MP, TSH, PREGQNT #### [facility] [address] [place] [address] Woody Duenas HCG RANGE SEE BELOW Normal [facility] Comment on above: Result Comment: 5-50 0-1 WEEK 40-300 1-2 WEEKS 100-1,000 2-3 WEEKS 500-6,000 3-4 WEEKS 5,000-200,000 1-2 MONTHS 10,000-100,000 2-3 MONTHS 3,000-50,000 2ND TRIMESTER 1,000-50,000 3RD TRIMESTER Performed By: #### C MP, TSH, PREGQNT #### [facility] [address] [place] [address] Woody Duenas PROF 14(COMP METB)on 021 Albumin [Mass/Vol] 2.8 g/dL Critically low 3.5-5.0 [facility] Comment on above: Performed By: #### C MP, TSH, PREGQNT #### [facility] [address] [place] [id number] [place]y Duenas Albumin/Globulin [Mass ratio] 0.7 {ratio} Normal [facility] Comment on above: Performed By: #### C MP, TSH, PREGQNT #### [facility] [address] [place], [place] [id number] Woody Duenas ALP [Catalytic activity/Vol] 78 U/L Normal 38-126 [facility] Comment on above: Performed By: #### C MP, TSH, PREGQNT #### [facility] [address] [place] [address] Woody [place] ALT [Catalytic activity/Vol] 74 U/L Critically high 9-52 [facility] Comment on above: Performed By: #### C MP, TSH, PREGQNT #### [facility] [address] [place] [address] Woody [place] Anion gap [Moles/Vol] 10.8 mmol/L Normal [facility] Comment on above: Performed By: #### C MP, TSH, PREGQNT #### [facility] [address] [place] [address] Woody [place] AST [Catalytic activity/Vol] 50 U/L Critically high 14-36 [facility] Comment on above: Performed By: #### C MP, TSH, PREGQNT #### [facility] [address] [place] [address] Woody [place] Bilirubin [Mass/Vol] 0.2 mg/dL Normal 0.2-1.3 [facility] Comment on above: Performed By: #### C MP, TSH, PREGQNT #### [facility] [address] [place] [address] Woody [place] Calcium [Mass/Vol] 8.6 mg/dL Normal 8.4-10.2 [facility] Comment on above: Performed By: #### C MP, TSH, PREGQNT #### [facility] [address] [place] [address] Woody [place] Chloride [Moles/Vol] 105 mmol/L Normal 98-107 [facility] Comment on above: Performed By: #### C MP, TSH, PREGQNT #### [facility] [address] [place] [address] Woody [place] CO2 [Moles/Vol] 28.2 mmol/L Normal 22.0-30.0 [facility] Comment on above: Performed By: #### C MP, TSH, PREGQNT #### [facility] [address] [place] [address] Woody [place] Creatinine [Mass/Vol] 0.53 mg/dL Normal 0.52-1.04 [facility] Comment on above: Performed By: #### C MP, TSH, PREGQNT #### [facility] [address] [place] [address] Woody [place] EGFR-AF EMIRATI >60 Normal >=60 [facility] Comment on above: Performed By: #### C MP, TSH, PREGQNT #### [facility] [address] [place] [address] Woody [place] EGFR-NON AF EMIRATI >60 Normal >=60 [facility] Comment on above: Performed By: #### C MP, TSH, PREGQNT #### [facility] [address] [place] [address] Woody [place] Globulin (S) [Mass/Vol] 3.9 g/dL Normal [facility] Comment on above: Performed By: #### C MP, TSH, PREGQNT #### [facility] [address] [place] [address] Woody [place] Glucose [Mass/Vol] 99 mg/dL Normal 74-106 [facility] Comment on above: Performed By: #### C MP, TSH, PREGQNT #### [facility] [address] [place] [address] Woody [place] Potassium [Moles/Vol] 4.0 mmol/L Normal 3.4-5.0 [facility] Comment on above: Performed By: #### C MP, TSH, PREGQNT #### [facility] [address] [place] [address] Woody [place] Protein [Mass/Vol] 6.7 g/dL Normal 6.1-8.2 [facility] Comment on above: Performed By: #### C MP, TSH, PREGQNT #### [facility] [address] [place] [address] Woody [place] Sodium [Moles/Vol] 140 mmol/L Normal 137-145 [facility] Comment on above: Performed By: #### C MP, TSH, PREGQNT #### [facility] [address] [id number] Woody Duenas Urea nitrogen [Mass/Vol] 10.0 mg/dL Normal 7.0-17.0 [facility] Comment on above: Performed By: #### C MP, TSH, PREGQNT #### [facility] [address] [place], [place] [address] Woody Duenas Urea nitrogen/Creatini ne [Mass ratio] 18.9 mg/mg Normal [facility] Comment on above: Performed By: #### C MP, TSH, PREGQNT #### [facility] [address] [place], [place] [address] Woody Duenas TSHon 12-23-2020 TSH 1.598 uIU/mL Normal 0.470-4.680 [facility] Comment on above: Performed By: #### C MP, TSH, PREGQNT #### [facility] [address] [id number] Woody Duenas TSH RANGE SEE BELOW Normal [facility] Comment on above: Result Comment: <0.3 4 UIU/ml HYPERTHYROID 0.34-5.60 UIU/ml EUTHYROID >5.60 UIU/ml HYPOTHYROID Performed By: #### C MP, TSH, PREGQNT #### [facility] [address] [id number] Woody Duenas VITAMIN B12on 12-23-2020 Cobalamin (Vitamin B12) [Mass/Vol] 538.0 pg/mL Normal 239.0-931.0 [facility] Comment on above: Performed By: #### V ITB12 ####[facility] [address] [place], [place] [address]DmpyrlWoody Duenas MR OUTSIDE CD DICOM IMPORT - NBNRon 12-07-2020 MR OUTSIDE CD DICOM IMPORT -NBNR Images were obtained outside of [facility] [id number] Normal [facility] SARS-CoV2 ANTIBODIES (IgM, I gG, IgA)on 11-14-2020 SARS-CoV-2 (COVID-19) RNA ROXANA+probe Ql (Unsp spec) Negative Normal Negative [facility] Comment on above: Result Comment: This sample does not contain detectable SARS-CoV-2 antibodies. This negative result does not rule out SARS-CoV-2 infection. Correlation with epidemiologic risk factors and other clinical and laboratory findings is recommended. Serologic results should not be used as the sole basis to diagnose or exclude recent SARS-CoV-2 infection. Performed By: #### C VDABS ####[facility] [address] [place] Covid-19 PCR (CVDTBH)on 10-10 EUA Statement SEE BELOW Normal [facility] Comment on above: Result Comment: This test is not yet approved or cleared by the [place] FDA. When there are no FDA-approved or cleared tests available, and other criteria are met, FDA can make tests available under an emergency access mechanism called an Emergency Use Authorization (EUA). The EUA for this test is supported by the [place] of Health and Human Service?s (HHS?s) declaration [...] with SARS-CoV-2. Performed By: #### C VDTBH ####[facility] [address] [place] [address] [place] SARS-CoV-2 (COVID-19) RNA ROXANA+probe Ql (Unsp spec) Not detected Normal NOT DETECTED [facility] Comment on above: Result Comment: This test is not yet approved or cleared by the [place] FDA. When there are no FDA-approved or cleared tests available, and other criteria are met, FDA can make tests available under an emergency access mechanism called an Emergency Use Authorization (EUA). The EUA for this test is supported by the [place] of Health and Human Service's (HHS's) declaration [...] longer be used). Performed By: #### C [facility] ####[facility] [address] [place], [place] [address]WvdtwvWoody Duenas MRI KNEE RT WO CONon 020 MRI KNEE RT WO CON EXAMINATION: MRI KNEE RT WO CON HISTORY: Internal derangement of [...] by: DIANA MONROY Date: 2020-09-11 14:09 Normal [facility] Cult,Bloodon 11-05-2017 Cult,Blood Specimen Description .BLOOD Special Requests R ARM 6 ML Culture NO GROWTH 6 DAYS Report Status FINAL 11/05/2017 Normal [facility] Comment on above: Performed By: #### B C ####[facility] [place] [address] Cult,Blood Specimen Description .BLOOD Special Requests LT HAND 5ML Culture NO GROWTH 6 DAYS Report Status FINAL 11/05/2017 [facility] Comment on above: Performed By: #### B C ####[facility] [address] [place] [address] [id number] Cult,Bloodon 11-04-2017 Cult,Blood Specimen Description .BLOOD Special Requests LT AC 7 ML Culture NO GROWTH 6 DAYS Report Status FINAL 11/04/2017 [facility] Comment on above: Performed By: #### B C ####[address] [id number] Cult,Bloodon 11-01-2017 Cult,Blood Specimen Description .BLOODSpecial Requests RT F ARM 7 MLCulture POSITIVE BLOOD CULTURE, RN NOTIFIED: CATARINO Dunlap AT 0810 ON 10/30/17 DIRECT GRAM STAIN FROM BOTTLE: GRAM POSITIVE COCCI IN CHAINS AND PAIRS PNAFISH negative. Culture results to follow. VIRIDANS STREPTOCOCCUS GROUP SEVERAL MORPHOTYPES Report Status FINAL 11/01/2017 [facility] Comment on above: Performed By: #### B C ####[address] [id number] Cult,Urine,CCon 10-31-2017 Cult,Urine,CC Specimen Description .CLEAN CATCH URINESpecial Requests NOT REPORTEDCulture GROUP D ENTEROCOCCUS 10 to 50,000 CFU/MLReport Status FINAL 10/30/2017SUSCEPTIBILITYOr ganism EGDMethod MICAmpicillin <=2 SUSCEPTIBLEPenicillin NOT REPORTEDCiprofloxacin 1 SUSCEPTIBLEErythromycin NOT REPORTEDGentamicin,High Level NOT REPORTEDLevofloxacin 1 SUSCEPTIBLELinezolid NOT REPORTEDNitrofurantoin <=16 SUSCEPTIBLESynercid NOT REPORTEDStreptomycin,Hi Level NOT REPORTEDTetracycline <=1 SUSCEPTIBLETigecycline NOT REPORTEDVancomycin 1 SUSCEPTIBLE [facility] Comment on above: Performed By: #### C JASS ####[address] [id number] Progress Noteon 10-30-2017 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 Additional eGFR calculator available at:http://www.[email or web address]_crcl_2012.htmRes[facility] [address] [place] [address] Performed By: #### C DP, BMP ####[address] [address] Anion gap 12 mmol/L Normal 9-17 [facility] Comment on above: Performed By: #### C DP, BMP ####[address] [address] Calcium 7.6 mg/dL Low 8.6-10.4 [facility] Comment on above: Performed By: #### C DP, BMP ####[address] [address] Chloride 104 mmol/L Normal 98-107 [facility] Comment on above: Performed By: #### C DP, BMP ####[address] [address] CO2 24 mmol/L Normal 20-31 [facility] Comment on above: Performed By: #### C DP, BMP ####[facility] CenterLigerTailUlakbrxvrodp[address] [place] [address] Creatinine 0.37 mg/dL Low 0.50-0.90 [facility] Comment on above: Performed By: #### C DP, BMP ####[facility] CenterLigerTailRpqxzjtipjum64[address] [place] [address] eGFR (non-black) mL/min/{1.73_m2} Normal >60 [facility] Comment on above: Performed By: #### C DP, BMP ####[facility] Centerbrandi ChengF[address]ybzvzociqm[address]409 [place] [address] Glucose mass conc 90 mg/dL Normal 70-99 [facility] Comment on above: Performed By: #### C DP, BMP ####[facility] Center[facility]i [address]xog[address]27[address] [place] [address] Potassium molar conc 4.0 mmol/L Normal 3.7-5.3 [facility] Comment on above: Performed By: #### C DP, BMP ####[address] [address] Sodium 140 mmol/L Normal 135-144 [facility] Comment on above: Performed By: #### C DP, BMP ####[address] [address] Urea nitrogen 8 mg/dL Normal 6-20 [facility] Comment on above: Performed By: #### C DP, BMP ####[address] [address] BUN/CRE Ratio NOT REPORTED Normal - [facility] Comment on above: Performed By: #### C DP, BMP ####[address] [address] Staging: NOT REPORTED Normal [facility] Comment on above: Performed By: #### C DP, BMP ####[address] [address] CBC with Diffon 10-29-2017 Abs. Basophil 0.03 k/uL Normal 0.00-0.20 [facility] Comment on above: Performed By: #### C DP, BMP ####[address] [address] Abs.Neutrophil (Seg) 3.73 k/uL Normal 1.50-8.10 [facility] Comment on above: Performed By: #### C DP, BMP ####[address] [address] Basophils/100 WBC Auto (Bld) 1 % Normal 0-2 [facility] Comment on above: Performed By: #### C DP, BMP ####[address] [address] Eosinophils 0.19 10*3/uL Normal 0.00-0.44 [facility] Comment on above: Performed By: #### C DP, BMP ####[address] [address] Eosinophils/100 leukocytes 3 % Normal 1-4 [facility] Comment on above: Performed By: #### C DP, BMP ####[address] [address] Erythrocyte distribution width Auto Ratio (RBC) 13.1 % Normal 11.8-14.4 [facility] Comment on above: Performed By: #### C DP, BMP ####[address] [address] Erythrocytes (RBC) 3.84 10*6/uL Low 3.95-5.11 [facility] Comment on above: Performed By: #### C DP, BMP ####[address] [address] Granulocytes/100 WBC (Bld) % Normal 0.00-0.30 [facility] Comment on above: Result Comment: [id number] [place] [address] Performed By: #### C DP, BMP ####[address] [address] Hematocrit (HCT) 34.9 % Low 36.3-47.1 [facility] Comment on above: Performed By: #### C DP, BMP ####[facility] [address] [place] [address] Hemoglobin mass conc (Bld) 10.6 g/dL Low 11.9-15.1 [facility] Comment on above: Performed By: #### C DP, BMP ####[address] [address] Immature granulocytes #/vol (Bld) 0 % Normal 0 [facility] Comment on above: Performed By: #### C DP, BMP ####[address] [address] Lymphocytes 1.70 10*3/uL Normal 1.10-3.70 [facility] Comment on above: Performed By: #### C DP, BMP ####[address] [address] Lymphocytes/100 leukocytes 28 % Normal 24-43 [facility] Comment on above: Performed By: #### C DP, BMP ####[address] [address] MCH 27.6 pg Normal 25.2-33.5 [facility] Comment on above: Performed By: #### C DP, BMP ####[address] [address] MCHC mass conc (RBC) 30.4 g/dL Normal 28.4-34.8 [facility] Comment on above: Performed By: #### C DP, BMP ####[address] [address] MCV 90.9 fL Normal 82.6-102.9 [facility] Comment on above: Performed By: #### C DP, BMP ####[address] [address] Monocytes 0.36 10*3/uL Normal 0.10-1.20 [facility] Comment on above: Performed By: #### C DP, BMP ####[address] [address] Monocytes/100 leukocytes 6 % Normal 3-12 [facility] Comment on above: Performed By: #### C DP, BMP ####[address] [address] Neutrophil (Seg) 62 % Normal 36-65 [facility] Comment on above: Performed By: #### C DP, BMP ####[address] [address] Platelet mean volume (PMV) 9.9 fL Normal 8.1-13.5 [facility] Comment on above: Performed By: #### C DP, BMP ####[address] [address] Platelets 347 10*3/uL Normal 138-453 [facility] Comment on above: Performed By: #### C DP, BMP ####[address] [address] WBC (Leukocytes) 6.0 10*3/uL Normal 3.5-11.3 [facility] Comment on above: Performed By: #### C DP, BMP ####[address] [address] Auto Diff Performed NOT REPORTED Normal [facility] Comment on above: Performed By: #### C DP, BMP ####[address] [address] Erythrocyte morphology NOT REPORTED Normal [facility] Comment on above: Performed By: #### C DP, BMP ####[address] [address] Platelets NOT REPORTED Normal [facility] Comment on above: Performed By: #### C DP, BMP ####[facility] [address] [place] [address] WBC Morphology NOT REPORTED Normal [facility] Comment on above: Performed By: #### C DP, BMP ####[facility] [address] [place] [address] Discharge Summaryon 10-29-20 17 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 Normal [facility] Comment on above: Result Comment: [facility] [address] [place] [address] Performed By: #### U CORBIN ESTEVES ####[facility] [place] [address] Acetaminophen mass conc LARGE Abnormal NEG [facility] Comment on above: Performed By: #### U AXCORBIN ####[facility] CenterLigerTailVkalinbesivt9531 [place] [address] Hemoglobin mass conc (Bld) Negative Normal NEG [facility] Comment on above: Performed By: #### U AXCORBIN ####[facility] CenterNovalys L[address]zxfdjky[address] [place] [address] Nitrite,Ur Positive Abnormal NEG [facility] Comment on above: Performed By: #### U AXKEHINDEO ####[facility] CenterNovalys Z[address]xfqamb[address] [place] [address] Turbidity CLOUDY Abnormal CLEAR [facility] Comment on above: Performed By: #### U AXCORBIN ####[address] [place] [address] Urine, color DARK YELLOW Abnormal YEL [facility] Comment on above: Performed By: #### U AX, UMICAO ####[facility] Centery [address]cawkr[address] [place] [address] Urine, glucose presence Negative Normal NEG [facility] Comment on above: Performed By: #### U AX, UMICAO ####[facility] Centery [address]fckxcz[address] [place] [address] Urine, leukocyte esterase presence TRACE Abnormal NEG [facility] Comment on above: Performed By: #### U AX, UMICAO ####[facility] [address] [place] [address] Urine, pH 6.5 [pH] Normal 5.0-8.0 [facility] Comment on above: Performed By: #### U AX, UMICAO ####[facility] Centerbrandi [address]ldjrl[address] [place] [address] Urine, protein presence 3+ Abnormal NEG [facility] Comment on above: Performed By: #### U AX, UMICAO ####[address] [place] [address] Urine, specific gravity 1.023 Normal 1.005-1.030 [facility] Comment on above: Performed By: #### U AX, UMICAO ####[facility] [address]iesajj[address]4 [place] [address] Urobilinogen,Ur Normal Normal NORM [facility] Comment on above: Performed By: #### U AX, UMICAO ####[facility] [address] [place] [address] Urinalysis,Microon 12-20-201 7 Urine, crystals in sediment FEW Abnormal NONE [facility] Comment on above: Result Comment: URIC ACID Performed By: #### U AX UMICAO ####[address] [address] Urine, yeast presence in sediment FEW Abnormal NONE [facility] Comment on above: Result Comment: [facility] [address] [place] [address] Performed By: #### U AXVARGHESEICAO ####[address] [address] ----- Normal [facility] Comment on above: Performed By: #### U AX UMICAO ####[facility] [address] [place] [address] Urine WBC's 2 TO 5 Normal 0-5 [facility] Comment on above: Performed By: #### U AX UMICAO ####[facility] [address] [place] [address] Urine, epithelial cells in sediment 10 TO 20 Normal 0-5 [facility] Comment on above: Performed By: #### U AX UMICAO ####[facility] [address] [place] [address] Urine, erythrocytes 0 TO 2 Normal 0-4 [facility] Comment on above: Result Comment: Refe rence range defined for non-centrifuged specimen. Performed By: #### U AX UMICAO ####[facility] [address] [place] [address] Epithelial, Renal NOT REPORTED Normal 0 [facility] Comment on above: Performed By: #### U AX UMICAO ####[facility] [place] [address] Mucus Strands NOT REPORTED Normal NONE [facility] Comment on above: Performed By: #### U AX UMICAO ####[facility] [address] [place] [address] Other Observations NOT REPORTED Normal NREQ [facility] Comment on above: Performed By: #### U AX, UMICAO ####[facility] [address] [place] [address] Trichomonas NOT REPORTED Normal NONE [facility] Comment on above: Performed By: #### U AX, UMICAO ####[facility] [address] [place] [address] Urine, amorphous sediment presence in sediment NOT REPORTED Normal NONE [facility] Comment on above: Performed By: #### U AX, VARGHESEICAO ####[facility] [address]wrlag[address] [place] [address] Urine, bacteria in sediment NOT REPORTED Normal NONE [facility] Comment on above: Performed By: #### U AX, UMICAO ####[facility] Cent[facility] T[address]vwczuto[address] [place] [address] Urine, casts in sediment NOT REPORTED Normal 0-8 [facility] Comment on above: Performed By: #### U AX, VARGHESEICAO ####[facility] Cent[facility] [address]clmagxp0094 [place] [address] Basic Metabolic Profon 10-28 (cont.) Normal [facility] Comment on above: Result Comment: Aver age GFR for 30-39 years old: 107 mL/min/1.73sq mChronic Kidney Disease: <60 mL/min/1.73sq mKidney failure: <15 mL/min/1.73sq meGFR calculated using average adult body mass. Additional eGFR calculator available at:http://www.[employer].com/multiple_crcl_2012.htmRes[facility] [address] [place] [address] Performed By: #### C DP, BMP ####[facility] [place] [address] Anion gap 12 mmol/L Normal 9-17 [facility] Comment on above: Performed By: #### C DP, BMP ####[address] [address] Calcium 8.4 mg/dL Low 8.6-10.4 [facility] Comment on above: Performed By: #### C DP, BMP ####[address] [address] Chloride 98 mmol/L Normal 98-107 [facility] Comment on above: Performed By: #### C DP, BMP ####[address] [address] CO2 27 mmol/L Normal 20-31 [facility] Comment on above: Performed By: #### C DP, BMP ####[address] [address] Creatinine 0.44 mg/dL Low 0.50-0.90 [facility] Comment on above: Performed By: #### C DP, BMP ####[address] [address] eGFR (non-black) mL/min/{1.73_m2} Normal >60 [facility] Comment on above: Performed By: #### C DP, BMP ####[address] [address] Glucose mass conc 108 mg/dL High 70-99 [facility] Comment on above: Performed By: #### C DP, BMP ####[address] [address] Potassium molar conc 3.5 mmol/L Low 3.7-5.3 [facility] Comment on above: Performed By: #### C DP, BMP ####[address] [address] Sodium 137 mmol/L Normal 135-144 [facility] Comment on above: Performed By: #### C DP, BMP ####[address] [address] Urea nitrogen 10 mg/dL Normal 6-20 [facility] Comment on above: Performed By: #### C DP, BMP ####[address] [address] BUN/CRE Ratio NOT REPORTED Normal 9-20 [facility] Comment on above: Performed By: #### C DP, BMP ####[address] [address] Staging: NOT REPORTED Normal [facility] Comment on above: Performed By: #### C DP, BMP ####[place] [address] CBC with Diffon 10-28-2017 Abs. Basophil 0.03 k/uL Normal 0.00-0.20 [facility] Comment on above: Performed By: #### C DP, BMP ####[address] [address] Abs.Neutrophil (Seg) 5.25 k/uL Normal 1.50-8.10 [facility] Comment on above: Performed By: #### C DP, BMP ####[address] [address] Basophils/100 WBC Auto (Bld) 0 % Normal 0-2 [facility] Comment on above: Performed By: #### C DP, BMP ####[address] [address] Eosinophils 0.17 10*3/uL Normal 0.00-0.44 [facility] Comment on above: Performed By: #### C DP, BMP ####[address] [address] Eosinophils/100 leukocytes 2 % Normal 1-4 [facility] Comment on above: Performed By: #### C DP, BMP ####[address] [address] Erythrocyte distribution width Auto Ratio (RBC) 13.2 % Normal 11.8-14.4 [facility] Comment on above: Performed By: #### C DP, BMP ####[address] [address] Erythrocytes (RBC) 4.39 10*6/uL Normal 3.95-5.11 [facility] Comment on above: Performed By: #### C DP, BMP ####[address] [address] Granulocytes/100 WBC (Bld) 0.03 k/uL Normal 0.00-0.30 [facility] Comment on above: Result Comment: [address] [place] [address] Performed By: #### C DP, BMP ####[address] [address] Hematocrit (HCT) 38.7 % Normal 36.3-47.1 [facility] Comment on above: Performed By: #### C DP, BMP ####[address] [address] Hemoglobin mass conc (Bld) 12.2 g/dL Normal 11.9-15.1 [facility] Comment on above: Performed By: #### C DP, BMP ####[address] [address] Immature granulocytes #/vol (Bld) 0 % Normal 0 [facility] Comment on above: Performed By: #### C DP, BMP ####[address] [address] Lymphocytes 1.71 10*3/uL Normal 1.10-3.70 [facility] Comment on above: Performed By: #### C DP, BMP ####[facility] [address] [place] [address] Lymphocytes/100 leukocytes 22 % Low 24-43 [facility] Comment on above: Performed By: #### C DP, BMP ####[address] [address] MCH 27.8 pg Normal 25.2-33.5 [facility] Comment on above: Performed By: #### C DP, BMP ####[address] [address] MCHC mass conc (RBC) 31.5 g/dL Normal 28.4-34.8 [facility] Comment on above: Performed By: #### C DP, BMP ####[address] [address] MCV 88.2 fL Normal 82.6-102.9 [facility] Comment on above: Performed By: #### C DP, BMP ####[address] [address] Monocytes 0.44 10*3/uL Normal 0.10-1.20 [facility] Comment on above: Performed By: #### C DP, BMP ####[address] [place] [address] Monocytes/100 leukocytes 6 % Normal 3-12 [facility] Comment on above: Performed By: #### C DP, BMP ####[address] [place] [address] Neutrophil (Seg) 70 % High 36-65 [facility] Comment on above: Performed By: #### C DP, BMP ####[address] [place] [address] Platelet mean volume (PMV) 9.6 fL Normal 8.1-13.5 [facility] Comment on above: Performed By: #### C DP, BMP ####[address] [address] Platelets 456 10*3/uL High 138-453 [facility] Comment on above: Performed By: #### C DP, BMP ####[address] [address] WBC (Leukocytes) 7.6 10*3/uL Normal 3.5-11.3 [facility] Comment on above: Performed By: #### C DP, BMP ####[address] [address] Auto Diff Performed NOT REPORTED Normal [facility] Comment on above: Performed By: #### C DP, BMP ####[address] [address] Erythrocyte morphology NOT REPORTED Normal [facility] Comment on above: Performed By: #### C DP, BMP ####[address] [address] Platelets NOT REPORTED Normal [facility] Comment on above: Performed By: #### C DP, BMP ####[address] [address] WBC Morphology NOT REPORTED Normal [facility] Comment on above: Performed By: #### C DP, BMP ####[address] [address] ED Noteon 10-28-2017 HIM IP Note OR Flute Teacher Normal [facility] HIM IP Note OR Flute Teacher Normal [facility] HIM IP Note OR Flute Teacher Normal [facility] HIM IP Note OR Flute Teacher Normal [facility] ED Provider Noteon 7 HIM IP Note OR Flute Teacher Normal [facility] Vital Signs Date Time Vital Sign Value Performing Clinician Facility 12-25-2023 13:40-0500 Body height 157.5 cm Sammi Estrada RESOLUTION MANAGER Work Phone: [facility] 12-25-2023 13:40-0500 Body mass index (BMI) [Ratio] 25.61 kg/m2 Sammi Yusufi RESOLUTION MANAGER Work Phone: [facility] 12-25-2023 13:40-0500 Body weight 63.5 kg Sammi Yusufi RESOLUTION MANAGER Work Phone: [facility] 12-25-2023 13:40-0500 Diastolic blood pressure 82 mm[Hg] Sammi Rockiani RESOLUTION MANAGER Work Phone: [facility] 12-25-2023 13:40-0500 Systolic blood pressure 120 mm[Hg] Sammi Yusufi RESOLUTION MANAGER Work Phone: [facility] 11-14-2023 16:30-0500 Body height 157.48 cm Luisa Mckeon Other [facility] Other 11-14-2023 16:30-0500 Body mass index (BMI) [Ratio] 26.01 kg/m2 Luisa Mckeon Other [facility] Other 11-14-2023 16:30-0500 Body temperature 98 [degF] Luisa Mckeon Other [facility] Other 11-14-2023 16:30-0500 Body weight 64.5 kg Luisa Mckeon Other [facility] Other 11-14-2023 16:30-0500 Respiratory rate 18 /min Luisa Mckeon Other [facility] Other 11-14-2023 16:30-0500 SaO2% (BldA) [Mass fraction] 97 % Luisa Mckeon Other [facility] Other 11-04-2023 15:00-0500 Body height 157.48 cm Yelitza Jones Other [facility] Other 11-04-2023 15:00-0500 Body mass index (BMI) [Ratio] 26.12 kg/m2 Yelitza Jones Other [facility] Other 11-04-2023 15:00-0500 Body temperature 99.3 [degF] Yelitza Jones Other [facility] Other 11-04-2023 15:00-0500 Body weight 64.77 kg Yelitza Jones Other [facility] Other 11-04-2023 15:00-0500 Diastolic blood pressure 84 mm[Hg] Yelitza Jones Other [facility] Other 11-04-2023 15:00-0500 Systolic blood pressure 117 mm[Hg] Yelitza Jones Other [facility] Other 10-09-2023 09:50-0500 Body height 157.48 cm Hilary Kari Other [facility] [employer] Other 10-09-2023 09:50-0500 Body mass index (BMI) [Ratio] 27.43 kg/m2 Hilary Kari Other [facility] Other 10-09-2023 09:50-0500 Body temperature 98.1 [degF] Hilary Kari Other [facility] Other 10-09-2023 09:50-0500 Body weight 68.04 kg Hilary Kari Other [facility] Other 10-09-2023 09:50-0500 Respiratory rate 18 /min Hilary Kari Other [facility] Other 10-09-2023 09:50-0500 SaO2% (BldA) [Mass fraction] 99 % Hilary Kari Other [facility] Other 07-29-2023 09:45-0400 Body height 157.48 cm Yelitza Jones Other [facility] Other 07-29-2023 09:45-0400 Body mass index (BMI) [Ratio] 26.15 kg/m2 Yelitza Jones Other [facility] [employer] Other 07-29-2023 09:45-0400 Body temperature 98.2 [degF] Yelitza Jones Other [facility] Other 07-29-2023 09:45-0400 Body weight 64.86 kg Yelitza Jones Other [facility] Other 07-29-2023 09:45-0400 Diastolic blood pressure 87 mm[Hg] Yelitza Jones Other [facility] [employer] Other 07-29-2023 09:45-0400 Systolic blood pressure 124 mm[Hg] Yelitza Jones Other [facility] Other 03-10-2023 10:30-0400 Body height 157.48 cm Yelitza Jones Other [facility] [employer] Other 03-10-2023 10:30-0400 Body mass index (BMI) [Ratio] 28.16 kg/m2 Yelitza Jones Other [facility] Other 03-10-2023 10:30-0400 Body temperature 97.6 [degF] Yelitza Jones Other [facility] Other 03-10-2023 10:30-0400 Body weight 69.85 kg Yelitza Jones Other [facility] Other 03-10-2023 10:30-0400 Diastolic blood pressure 78 mm[Hg] Yelitza Jones Other [facility] Other 03-10-2023 10:30-0400 SaO2% (BldA) [Mass fraction] 99 % Yelitzakendall Jones Other [facility] Other 03-10-2023 10:30-0400 Systolic blood pressure 118 mm[Hg] Yelitza Jones Other [facility] Other Encounters Encounter Date Encounter Type Care Provider Facility Start: 01-01-2024 End: 01-01-2024 ambulatory EFRAIN JEAN BAPTISTE Not Available Start: 12-29-2023 End: 12-29-2023 ambulatory CLINT CESPEDES Not Available Start: 12-25-2023 End: 12-25-2023 ambulatory SAMMI ESTRADA Not Available Start: 12-25-2023 Bamboo flowsheet Sammi Estrada RESOLUTION MANAGER Work Phone: [facility] Start: 12-25-2023 Bamboo flowsheet Sammi Estrada RESOLUTION MANAGER Work Phone: [facility] Start: 12-25-2023 End: 12-25-2023 Patient encounter procedure Sammi Estrada RESOLUTION MANAGER Work Phone: [facility] Comment on above: Intractable chronic migraine without aura and without status migrainosus (CMS/HCC) (Primary Dx); ADD (attention deficit disorder) without hyperactivity Start: 11-14-2023 End: 11-14-2023 ambulatory Luisa Linda Other [facility] Other Start: 11-14-2023 Office outpatient vi sit 15 minutes Luisa Mckeon [facility] Start: 11-14-2023 Telephone encounter Yelitza Jones [facility] Start: 11-04-2023 End: 11-04-2023 ambulatory Yelitza Jones Other [facility] Other Start: 11-04-2023 Office outpatient vi sit 15 minutes Yelitza Jones [facility] Start: 10-30-2023 End: 10-30-2023 ambulatory EFRAIN JEAN BAPTISTE Not Available Start: 10-14-2023 End: 10-14-2023 ambulatory Yelitza Jones Other [facility] Other Start: 10-14-2023 Telephone encounter Yelitza Jones [facility] Start: 10-09-2023 End: 10-09-2023 ambulatory Hilary Kari Other [facility] Other Start: 10-09-2023 Office outpatient vi sit [address] [facility] Start: 07-29-2023 End: 07-29-2023 ambulatory Yelitza Jones Other [facility] Other Start: 07-29-2023 Encounter for genera l adult medical examination without abnormal findings Yelitza Jones [facility] Start: 07-29-2023 Office outpatient vi sit 15 minutes Yelitza Jones [facility] Start: 07-16-2023 End: 07-16-2023 ambulatory Yelitza Jones Other [facility] Other Start: 07-16-2023 Telephone encounter Yelitza Jones [facility] Start: 05-20-2023 End: 05-20-2023 ambulatory Yelitza Jones Other [facility] Other Start: 05-20-2023 Telephone encounter Yelitza Jones [facility] Start: 03-10-2023 End: 03-10-2023 ambulatory Yelitza Jones Other [facility] Other Start: 03-10-2023 Office outpatient vi sit 15 minutes Yelitza Jones [facility] Start: 12-16-2022 End: 12-16-2022 ambulatory Yelitza Jones Other [facility] Other Start: 12-16-2022 Telephone encounter Yelitza Jones [facility] Start: 12-12-2022 (Televisit) Televisit Yelitza Antony [facility] Start: 12-12-2022 End: 12-12-2022 ambulatory Yelitza Jones Other [facility] Other Start: 09-12-2022 End: 09-12-2022 ambulatory Sammi Estrada Facility:[facility] Start: 09-12-2022 End: 09-12-2022 ambulatory MD Yelitza Jones Work Phone: [facility] Work Phone: Start: 09-12-2022 End: 09-12-2022 Patient encounter procedure MD Yelitza Jones Work Phone: [facility] [place] Start: 07-23-2022 Adult health examination Kolby Jones Other [facility] [employer] Other Start: 09-27-2021 End: 09-27-2021 ambulatory Yelitza Jones Facility:[facility] Start: 08-18-2021 Encounter for genera l adult medical examination without abnormal findings SHAIKH YAMILKA [facility] Start: 08-14-2021 End: 08-15-2021 ambulatory MURPHY YAMILKA Facility: Start: 08-14-2021 End: 08-15-2021 Encounter for general adult medical examination without abnormal findings SHAIKH WILMAEsteban Facility:[facility] Start: 08-01-[address] YELITZA JONES Facil ity:[facility]1 Start: 07-05-2021 End: 07-06-[address] YELITZA JONES Facility:[facility] Start: 06-12-2021 End: 06-13-[address] YELITZA JONES Facility:[facility] Start: 05-22-2021 End: 05-23-[address] UMBERTO JUNG Facility:[facility] Start: 05-18-2021 End: 05-19-[address] DOCTOR DUQUE Facility:[facility] Start: 05-07-2021 End: 05-07-[address] YELITZA JONES Facility:[facility] Start: 03-23-2021 End: 03-24-[address] YELITZA JONES Facility:[facility] Start: 02-16-2021 End: 02-17-[address] YELITZA JONES Facility:[facility] Start: 12-23-2020 End: 12-24-[address] DOCTOR DUQUE Facility:[facility] Start: 11-16-2020 Encounter for antibo dy response examination DR YELITZA JONES [facility] Start: 11-13-2020 End: 11-14-[address] YELITZA JONES Facility:[facility] Start: 11-13-2020 End: 11-14-2020 Encounter for antibody response examination DR YELITZA JONES Facility:[facility] Start: 10-21-2020 End: 10-22-[address] YELITZA JONES Facility:[facility] Start: 09-11-2020 End: 09-12-2020 ambulatory TERRI CURRY Facility:[facility] Start: 10-28-2017 End: 10-30-2017 Ambulatory YELITZA JONES [facility] Procedures Date Procedure Procedure Detail Performing Clinician Start: 10-30-2017 DISCHARGE PATIENT KOLBY JONES Start: 10-30-2017 CULTURE BLOOD #1 YELITZA JONES Start: 10-30-2017 INITIATE OXYGEN THER APY PROTOCOL YELITZA JONES Start: 10-30-2017 INTAKE AND OUTPUT KOLBY JONES Start: 10-29-2017 CULTURE BLOOD #1 YELITZA JONES Start: 10-29-2017 DIET GENERAL YELITZA SPANN Start: 10-29-2017 INITIATE OXYGEN THER APY PROTOCOL YELITZA JONES Start: 10-29-2017 BASIC METABOLIC PANEL M USHA JONES Start: 10-29-2017 CBC WITH AUTO DIFFERENTIAL YELITZA JONES Start: 10-29-2017 INTAKE AND OUTPUT KOLBY JONES Start: 10-29-2017 Microscopic urinalysis YELITZA JONES Start: 10-29-2017 UA W/REFLEX CULTURE JOSSELYN JONES Start: 10-29-2017 URINE CULTURE CLEAN CATCH YELITZA JONES Start: 10-29-2017 TELEMETRY MONITORING DENIS JONES Start: 10-28-2017 ADVANCE DIET TOLE RATED (NURSING COMMUNICATION) YELITZA KAREN Start: 10-28-2017 FULL CODE YELITZA MILLER UN Start: 10-28-2017 INITIATE OXYGEN THER APY PROTOCOL YELITZA JONES Start: 10-28-2017 INTAKE AND OUTPUT KOLBY JONES Start: 10-28-2017 REASON FOR NO MECHAN ICAL VTE PROPHYLAXIS YELITZA JONES Start: 10-28-2017 VITAL SIGNS YELITZA MILLER UN Start: 10-28-2017 PATIENT STATUS (FROM ED OR OR/PROCEDURAL) YELITZA KAREN Start: 10-28-2017 TRANSFER PATIENT YELITZA JONES Start: 10-28-2017 IP CONSULT TO HAIR MACHINE OPERATOR DENIS SILVER JONES Start: 10-28-2017 BASIC METABOLIC PANEL Melva JONES Start: 10-28-2017 CBC WITH AUTO DIFFERENTIAL YELITZA JONES Start: 10-28-2017 INSERT PERIPHERAL IV DENIS JONES Start: 07-01-2013 General examination of patient Yelitza Jones Other Hyperlipidemia screening Josselyn Jones Other Plan of Treatment Date Care Activity Detail Author Start: 07-26-2024 Influenza vaccination Influenza Vacc ine (#1) [facility] Comment on above: Postponed from 07/11 (Patient Refused) Start: 04-01-2024 End: 04-01-2024 Patient encounter procedure 04/01/2024 1:00 PM EDT Procedure Visit [facility] [address] [place] [address] Sammi Estrada, RESOLUTION MANAGER [address] [facility] [address] [place] [id number] [facility] Start: 01-01-2024 End: 01-01-2024 Patient encounter procedure 01/01/2024 10:30 AM EST Office Visit [facility] [address] [place] [address] Efrain Jean Baptiste MD [address] [facility] [address] [id number] [facility] Start: 12-29-2023 End: 12-29-2023 Clinical Support 12/29/2023 1:00 PM EST Clinical Support [facility] [address] [place] [address] [facility] Start: 2023 Screening for malign ant neoplasm of breast Mammogram [facility] Start: 07-11-2023 Influenza vaccination Influenza Vacc ine (#1) [facility] Start: 09-12-2022 MR Unspecified body region [facility] Start: 09-12-2022 MRI of head MR head/brain wo/w con [facility] Start: 2013 Screening for malign ant neoplasm of cervix [facility] Start: 2004 Screening for malign ant neoplasm of cervix Pap Smear [facility] Immunizations Immunization Date Immunization Notes Care Provider Fa cility 08-10-2020 influenza virus vaccine, split virus (incl. purified surface antigen) Yelitza Jones Other [facility] [employer] Other 08-09-2020 influenza, seasonal, injectable, preservative free Sammi Estrada RESOLUTION MANAGER Work Phone: [facility] 08-09-2020 influenza virus vaccine, unspecified formulation Sammi Estrada RESOLUTION MANAGER Work Phone: [facility] 05-17-2019 pneumococcal polysaccharide vaccine, 23 valent Sammi Rockiani RESOLUTION MANAGER Work Phone: [facility] 03-10-2015 hepatitis B vaccine, adult dosage Sammi Rockiani RESOLUTION MANAGER Work Phone: [facility] 11-09-2014 hepatitis B vaccine, adult dosage Sammi Graziani RESOLUTION MANAGER Work Phone: [facility] 09-02-2014 hepatitis B vaccine, adult dosage Sammi Pranaviani RESOLUTION MANAGER Work Phone: [facility] 09-02-2014 tetanus toxoid, redu sonia diphtheria toxoid, and acellular pertussis vaccine, adsorbed Sammicrystal Estrada RESOLUTION MANAGER Work Phone: [facility] Healthcare Payers Date Payer Category Payer Blue Cross Blue Shield [id number] HE[employer] PLUS [id number] 2022-Present [address] [place] [address] [id number] 2022 Unknown [id number] 2021 Self-pay [id number] 1985 Unknown [id number] 2.16840.1.371232.3.579.2. 593 1983 Unknown [id number] .16.840.1.793707.3.579.2. 593 1983 Unknown [id number] .16.840.1.365389.3.579.2. 593 1983 Unknown [id number] .16840.1.540420.3.579.2. 593 1983 Unknown [id number] 2.16.840.1.459288.3.579.2. 593 1983 Unknown [id number] 2.16.840.1.843680.3.579.2. 593 1983 Unknown [id number] 2.16840.1.251655.3.579.2. 593 1983 Unknown [id number] 2.16.840.1.643013.3.579.2. 593 1983 Unknown [id number] 2.16.840.1.849750.3.579.2. 593 1983 Unknown [id number] 2.16.840.1.533334.3.579.2. 593 1983 Unknown [id number] 2.16.840.1.547260.3.579.2. 593 1983 Unknown [id number] 2.16.840.1.262881.3.579.2. 593 1983 Unknown [id number] 2.16.840.1.651248.3.579.2. 593 1983 Unknown [id number] 2.16.840.1.577574.3.579.2. 1259 1983 Unknown [id number] 2.16840.1.908221.3.579.2. 1259 1983 Unknown [id number] 2.840.1.377064.3.579.2. 1259 1983 Unknown [id number] 2.16.840.1.323147.3.579.2. 1259 1959 Private Health Insurance [id number] Unknown [id number] 2.16840.1.351157.3.579.2. 593 Unknown [id number] 2.16840.1.840995.3.579.2. 531 Unknown [id number]. 531 Unknown [id number] Social History Date Type Detail Facility Tobacco smoking status NHIS Unknown if ever smoked [facility] Work Phone: Start: 1985 Sex Assigned At Female F [facility] Start: 10-30-2023 End: 12-25-2023 Sex Assigned At [facility] Other Start: 06-09-2023 Tobacco smoking status NHIS Never smoked tobacco [facility] Start: 06-09-2023 Tobacco use and exposure Smokeless tobacco non-user [facility] Healthcare Start: 10-30-2023 End: 12-25-2023 Alcohol intake Current drinker of alcohol (finding) [facility] Start: 10-30-2023 End: 12-25-2023 Alcohol intake [facility] Start: 06-09-2023 Alcohol Comment Caffeine intak e: more than 4 cups per day coffee, soda [facility] Start: 09-04-2023 Gender identity Identifies as female gender (finding) [facility] Clinical Notes 12-12-2022 to 12-25-2023 Sammi Estrada, RESOLUTION MANAGER - 12/25/2023 1:30 PM EST Note Date & Type Note Facility 12-25-2023 History of Presen t illness Narrative Subjective eCli Madrid is a 38 y.o. female. HPI Patient presents for chronic migraine botox. She had significant reduction last time and her TMJ pain too was reduced. She had severe wearing off with TMJ pain. After botox she only has 1 migraine after and then the last two weeks increasing symptoms. Prior to botox she had daily migraines. Ubrelvy relieves migraines. She is not tolerating XR Adderall. She is nearly falling asleep in afternoon at work. 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 She has to complete daily tasks at work. She did not tolerate generic Vyvanse either as still had significant focus and fatigue in afternoon. BP 120/82 (BP Location: Left arm, Patient Position: Sitting) Ht 5' 2 Wt 140 lb BMI 25.61 kg/m Allergies Allergen Reactions Nsaids Unknown Other Reaction(s): kidney issues Amoxicillin Rash Current Outpatient Medications: albuterol HFA 90 mcg/act inhaler, INHALE 1 PUFF EVERY 6 HOURS NEEDED FOR SHORTNESS OF BREATH OR WHEEZING, Disp: , Rfl: Botox 200 units injection, DIRECTED 155 UNITS INJECTION EVERY 90 DAYS, Disp: , Rfl: dexAMETHasone (Decadron) 2 MG tablet, Take 1 tablet (2 mg) by mouth See administration instructions. 3 pills per oral x 3 days, then 2 pills per oral x3 days, then 1 pill per oral x 3 days then stop for 9 days., Disp: 18 tablet, Rfl: 1 dexAMETHasone (Decadron) 2 MG tablet, 2mg 3 pills po X3 days,2 pills po daily X3 days , then 1 pill po daily X3 days then stop 9 days 18 pills, Disp: 18 tablet, Rfl: 1 lisdexamfetamine (Vyvanse) 40 MG capsule, Take 1 capsule (40 mg) by mouth in the morning., Disp: 30 capsule, Rfl: 0 naltrexone (Depade) 50 MG tablet, Take 3 mg by mouth in the morning., Disp: , Rfl: sertraline (Zoloft) 50 MG tablet, TAKE 1 AND 1/2 TABLETS BY MOUTH EVERY DAY, Disp: 135 tablet, Rfl: 2 Past Medical History: Diagnosis Date Acute tonsillitis Depression (CMS/HCC) Electrolyte imbalance 2004 H/O section repeat c/s Infertility, female Kidney disease Migraine (CMS/HCC) 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 Post-nasal drainage 2012 Proteinuria since 2011 Varicella zoster Past Surgical History: Procedure Laterality Date SECTION, LOW TRANSVERSE 2013 SECTION, LOW TRANSVERSE 12/16/2016 & tube removal HYSTERECTOMY 10/2017 IN MEDICATION MANAGEMENT Procedure:Clomid 50 mg i daily;Disease:Infertility Family History Problem Relation Name Age of Onset Diabetes Mother Hypertension Mother Clotting disorder Mother in legs Depression Mother COPD Father Diabetes Father Hypertension Father Diabetes Brother Stroke Sibling Diabetes Maternal Grandmother Lung cancer Maternal Grandmother Other cancer Maternal Grandfather Bladder Heart disease Maternal Grandfather Diabetes Maternal Grandfather Lung disease Maternal Grandfather Diabetes Paternal Grandmother Hypertension Paternal Grandmother Kidney disease Paternal Grandfather Diabetes Paternal Grandfather Lung cancer Paternal Grandfather reports that she has never smoked. She has never used smokeless tobacco. She reports current alcohol use of about 2.0 standard drinks of alcohol per week. She reports that she does not use drugs. Review of Systems Constitutional: Positive for fatigue. Negative for chills and fever. HENT: Negative for tinnitus. Eyes: Negative for photophobia. Respiratory: Negative for shortness of breath. Cardiovascular: Negative for chest pain. Gastrointestinal: Negative for nausea and vomiting. Genitourinary: Negative for frequency. Musculoskeletal: Negative for back pain, gait problem and neck pain. Neurological: Positive for headaches. Negative for dizziness, tremors, weakness, light-headedness and numbness. Psychiatric/Behavioral: Positive for decreased concentration. Objective Neurological Exam Assessment/Plan Diagnoses and all orders for this visit: Intractable chronic migraine without aura and without status migrainosus (CMS/HCC) ADD (attention deficit disorder) without hyperactivity - Vyvanse 60 MG capsule; Take 1 capsule (60 mg) by mouth in the morning. 38 year old female here for repeat botox injections. She has done significantly better with botox injections. She was previously having daily migraines. Now she goes month one and two with none and then has some wearing off the last few weeks until she is due again. TMJ is a huge trigger to her migraines. She is having worsening fatigue being on Adderall around afternoon she is yawning and can not focus. Vyvanse worked better but JUAN. I will send in 60 mg daily JUAN. Procedure - Therapeutic injection, Botulinum Toxin, Chronic Migraine Indication Chronic Migraine Identification The patient was positively identified by name and date of . Consent The procedure was explained to the patient. This included indications; possible complications, including at least bleeding, infection, and ; and ill effects from not undergoing the procedure, including at least inadequate treatment and all possible complications therefrom. Informed consent for the procedure was obtained and witnessed. Any further questions were answered during this visit. Site Prep The areas to be injected were sterilized with 70% isopropanol. Specialty pharmacy Lot # [id number] Dilution 200 units diluted into 4mL = 5 units per 0.1mL Procedure Procerus 5 units Manager Resort, L 5 units Manager Resort, R 5 units Frontalis, L 10 units (2 sites) Frontalis, R 10 units (2 sites) Temporalis, L 20 units (4 sites) Temporalis, R .20 units (4 sites) Occipitalis, L 15 units (3 sites) Occipitalis, R 15 units (3 sites) Paraspinalis cervicis, L 10 units (2 sites) Paraspinalis cervicis, R 10 units (2 sites) Trapezius, L 15 units (3 sites) Trapezius, L 15 units (3 sites) Other 45 units (9 sites, see below) TOTAL UNITS INJECTED 200 WASTED 0 The remaining 45 units were injected into various other facial or cervical muscles whose spasmed state was likely to trigger migraines, as determined by clinical examination during the procedure. Disposition The patient tolerated the procedure well. Post-op care was discussed. The patient is aware that duration of action is 3 months, and that delay in reinjection often results in recurrence of migraines Patient Instructions The patient was instructed to return should any bleeding or fluid be seen from the puncture site; for fever; numbness; weakness; or any other unexpected symptoms. Also instructed to follow up in 2-2.5 months to assess effectiveness and need for further treatment. Assessment Chronic migraine without aura, intractable, without status migrainosus - G43.719 Procedure Codes 95631 Chemodenervation Of Muscle Neck, Modifiers: 50 24301 Destroy Nerve, Face Muscle, Modifiers: 50 , 51 J0585 Botulinum toxin a per unit, Units: 200.00 A4209 SYRINGE W/NEEDLE STERILE 5 CC/GT EA A4206 1 CC sterile syringe&needle, Units: 4.00 A4216 Sterile water/saline, 10 ml Follow Up 2.5 months appointment; 3 months BTX documented in this encounter [facility] 11-14-2023 Evaluation note Encounter Date Diagnosis Assessment Notes Nov, Chest congestion (ICD-10 - R09.89) Nov, Influenza B (ICD-10 - J10.1) Influenza: adult home care material was printed Drink plenty fluids, get plenty of rest. Take Tylenol or Motrin for aches pains or fevers. Follow-up with your family physician if no improvement in 2 to 3 days [facility] Other 12-26-2023 Evaluation note* Encounter Date Diagnosis Assessment Notes Treatment Notes Treatment Clinical Notes Oct, Bronchitis (ICD-10 - J40) Take antibiotic as directed. If develop wheezing, chest tightness, itching, bad cough, blue skin color, seizures, swelling of face, lips, tongue, or throat report to ED. [facility] Other 11-30-2023 Evaluation note* Encounter Date Diagnosis Assessment Notes Treatment Notes Treatment Clinical Notes Sep, Suspected COVID-19 virus infection (ICD-10 [...] Acute right otitis media (ICD-10 - H66.91) [facility] Other 09-19-2023 Evaluation note* Encounter Date Diagnosis Assessment Notes Treatment Notes Treatment Clinical Notes Jul, Wellness examination (ICD-10 - Z00.00) Not a wellness exam, but requests wellness labs done for this year. Jul, Disorder of right eustachian tube (ICD-10 - H69.91) Advised finishing steroids. Trial of lower dose sudafed with flonase, which she has not started. No OM seen. Pt understands [facility] Other 09-06-2023 Evaluation note* Encounter Date Diagnosis Assessment Notes Treatment Notes Treatment Clinical Notes Jul, Pharyngitis, unspecified etiology (ICD-10 - J02.9) [facility] Other 05-01-2023 Evaluation note* Encounter Date Diagnosis Assessment Notes Treatment Notes Treatment Clinical Notes March, Acute non-recurrent maxillary sinusitis (ICD-10 - J01.00) PCN allergy [...] she easily has this problem on antibiotics. [facility] Other 02-06-2023 Evaluation note* Encounter Date Diagnosis Assessment Notes Treatment Notes Treatment Clinical Notes Dec, Acute non-recurrent maxillary sinusitis (ICD-10 - J01.00) [facility] Other 02-02-2023 Evaluation note* Encounter Date Diagnosis Assessment Notes Treatment Notes Treatment Clinical Notes Dec, Acute non-recurrent maxillary sinusitis (ICD-10 - J01.00) Testing for influenza as her negative COVID tests were not conclusive at home. Patient prefers to wait. Strongly suspect she has strep throat. Updated medication and allergy list in chart. Patient will call if her symptoms fail to improve [facility] Other Evaluation noteNo assessment information available [facility] Work Phone: Evaluation noteNo InformationNort [employer] Other Evaluation note* Diagnosis Intractable chronic migraine without aura and without status migrainosus ([facility])- Primary ADD (attention deficit disorder) without hyperactivity Attention deficit disorder without mention of hyperactivity documented in this encounter [facility] N[facility]ative - Reported* Type Description Date Medical History proteinuria Medical History CKD (chronic kidney disease) Medical History anxiety Medical History migraine headache Surgical History C section, x2 Surgical History bilateral salpingectomy 2016 Surgical History kidney biposy 02/2017 Surgical History hysterectomy Hospitalization History child Hospitalization History low k+ level 2003 [facility] Other History general [facility] - [facility] [employer] Other Summary Purpose Family History No Family History Records FoundNo Family History Records FoundNo Family History Records FoundNo Family History Records FoundNo Family History Records FoundNo Family History Records Found Advance Directives No Advanced Directives Records Found Advance Directive Response Recorded Date/ Time Advance Directives No November 28, 2020 1:52pm Chief Complaint and Reason for Visit Chief Complaint g43.909 g37.9 Additional Source Comments INFORMATION SOURCE (unrecogn ized section and content) DATE CREATED AUTHOR 05/05/2018 [facility] DATE CREATED AUTHOR AUTHOR'S ORGANIZ ATION 02/13/2021 [facility] DATE CREATED AUTHOR AUTHOR'S ORGANIZ ATION 08/19/2021 [facility] DATE CREATED AUTHOR AUTHOR'S ORGANIZ ATION 12/03/2021 [facility] DATE CREATED AUTHOR AUTHOR'S ORGANIZ ATION 09/21/2022 [facility] DATE CREATED AUTHOR AUTHOR'S ORGANIZ ATION 01/09/2024 [facility] EPIC Care Teams (unrecognized sec tion and content) Team Status: Inactive Member Role Status Dates Yelitza Jones MD Primary Care Provider Active Sammi Estrada APRN RESOLUTION MANAGER-C Attending Provider Huber ctive Team Status: Active Member Role Status Dates Yelitza Jones MD Primary Care Provider Active Goals (unrecognized section and content) Goals may be documented in a n alternate sectionNo InformationNo InformationNo InformationNo InformationNo InformationNo InformationNo InformationNo InformationNo InformationNo Information REASON FOR VISIT (unrecogniz ed section and content) Sore [phone] ageCOVID TEST NEGATIVE, SORE THROAT SETTLED IN HER CHESTStrep Ordercough, right side facial painCOVID TEST; BODY ACHES, SORE THROAT, MIGRAIN, DIZZINESScxrsore throat covid negSINUS CONGESTION, COUGH, HEADACHE, SORE THROAT, EARACHENo Information FOR RECORDS PERTAINING TO PATIENTS WHO ARE [...] BE BASED ON THE PRIMARY CLINICAL RECORDS. [employer] [facility]. provides no warranty or guarantee of the accuracy or completeness of information in this document.
--- NOTE | 2024-01-30 08:33 | MM_ITS ---
Patient Name: CELI JOE MR#: [id number] : 1985 Exam Date: 01/30/2024 Ordering Doctor: DR Dora Ferraro M.D. RADIOLOGY REPORT PROCEDURE: MM TOMOSYNTHESIS DIAGNOSTIC BI, 01/30/2024, 07:48 US BREAST RT COMPLETE, 01/30/2024, 09:31 COMPARISON: None. INDICATIONS: Right breast pain Calculator Name NCI Breast Cancer Risk Assessment Tool 5 Year Breast Cancer Risk 0.60% Lifetime Breast Cancer Risk 11.10% Personal Breast Cancer No Personal Ovarian Cancer No Treatments None Family Cancers None LOCATION: [facility] BREAST COMPOSITION: Extremely dense, which lowers the sensitivity of mammography. FINDINGS: DIAGNOSTIC CATEGORY 3--PROBABLY BENIGN FINDING. THE FOLLOWING FINDING(S) HAS A HIGH PROBABILITY OF A BENIGN ETIOLOGY: RIGHT BREAST: Several partially circumscribed lesions scattered within the breast seen on tomosynthesis. Ultrasound evaluation demonstrates several nonspecific nodules versus cysts measuring less than 1 cm in size. Slightly lobular lesion at the 9 o'clock position, 8 x 8 x 5 millimeters. Slightly geographic shaped lesion at the connors o'clock position, 5 x 4 x 4 millimeters. Given the multiplicity these most likely represent benign lesions, however, short-term follow-up is recommended to document stability and to help establish baseline for this patient. Alternatively, ultrasound-guided biopsy could be performed of the 9 o'clock lesion. LEFT BREAST: No significant suspicious finding. RECOMMENDATIONS: SHORT TERM FOLLOW-UP DIAGNOSTIC MAMMOGRAM RIGHT BREAST IN 3-6 MONTHS. SHORT TERM FOLLOW-UP ULTRASOUND RIGHT BREAST IN 3-6 MONTHS. PLEASE NOTE: A NORMAL MAMMOGRAM DOES NOT EXCLUDE THE POSSIBILITY OF BREAST CANCER. A CLINICALLY SUSPICIOUS PALPABLE LUMP SHOULD BE BIOPSIED. Dictated by: Otoniel Dia M.D. on 01/30/2024 at 10:17 Approved by: Otoniel Dia M.D. on 01/30/2024 at 12:04
== END 2024-01-30 08:26 | disposition home or self-care (01) ==
LOC: MAMMO 08:28
PROVIDERS: PCP Family Medicine; Visit Provider Family Medicine
DX: Z12.31 Encounter for screening mammogram for malignant neoplasm of breast (principal); N64.4 Mastodynia; N63.10 Unspecified lump in the right breast, unspecified quadrant
CPT/HCPCS: 76641; 77066; G0279

== ENCOUNTER 2024-03-04 13:53 | Day surgery (SDC) | payer BC, SELFPAY ==
--- NOTE | 2024-03-04 14:00 | US_ITS ---
[address] [address] Patient Name: CELI JOE MRN: [id number] date: 1985 Sex: F Assigned Patient Location: US Current Patient Location: US Accession/Order Number: [id number] Exam Date: 03/04/2024 14:30 Report Date: 03/04/2024 15:27 At the request of: YELITZA JONES Procedure: US breast vac bx w/ clip RT EXAM: US breast vac bx w/ clip RT HISTORY: Abnormal Mammogram COMPARISON: Ultrasound breast right 01/30/2024 TECHNIQUE: After obtaining informed consent, ultrasound-guided biopsy was performed in the usual sterile manner. The location of the biopsy was then marked as indicated below. FINDINGS: Specimen #, Location: 5 core samples, 9:00 right breast 9 mm heterogeneous hypoechoic nodule. Biopsy Needle: 13 gauge vacuum core biopsy needle. Marker(s): A single metallic marker was placed in the appropriate targeted location. Medication: Buffered 1% Lidocaine with epinephrine administered locally. Complications: None. Pathology: Pending. US/US breast vac bx w/ clip RT IMPRESSION: 1. Uneventful ultrasound-guided breast biopsy. 2. Pathology results are pending. An addendum to this report will be provided after pathology results are available. Electronically authenticated by: UMBERTO JUNG Date: 03/04/2024 15:27
--- NOTE | 2024-03-04 14:00 | MM_ITS ---
Patient Name: CELI JOE MR#: [id number] : 1985 Exam Date: 03/04/2024 Ordering Doctor: DR Dora Ferraro M.D. RADIOLOGY REPORT PROCEDURE: MM POST BIOPSY RT COMPARISON: US BREAST VAC BX W/ CLIP RT, 03/04/2024. MM TOMOSYNTHESIS DIAGNOSTIC BI, 01/30/2024. INDICATIONS: Abnormal Mammogram BREAST COMPOSITION: FINDINGS: Post-Procedure Mammogram for Marker Placement BIOPSY MARKER: A metallic marker has been placed in the targeted location within the upper-outer quadrant of the right breast. BREAST FINDINGS: Expected post biopsy findings. RECOMMENDATIONS: Dictated by: Otoniel Dia M.D. on 03/04/2024 at 15:47 Approved by: Otoniel Dia M.D. on 03/04/2024 at 15:48
[2024-03-04 14:05] VITALS: BP 125/89; PULSE 89; O2SAT 99
[2024-03-04] MEDS: LIDOCAINE HCL/EPINEPHRINE 10 ML, SODIUM BICARBONATE 1 MEQ INJ (14:40)
[2024-03-04] MEDS: LIDOCAINE HCL 10 ML, SODIUM BICARBONATE 1 MEQ INJ (14:40)
--- NOTE | 2024-03-04 15:26 | SUR.PREOP ---
02/23/24 Pt instructed on procedure, date, time, prep.
== END 2024-03-04 15:10 | disposition home or self-care (01) ==
LOC: US 13:53
PROVIDERS: Radiology Diagnostic Radiology; PCP Family Medicine; Visit Provider Family Medicine
DX: D24.1 Benign neoplasm of right breast (principal)
CPT/HCPCS: 19083; 77065; 88305; 99999

== ENCOUNTER 2024-05-02 19:08 | Emergency (ER) | payer BC, SELFPAY ==
[2024-05-02 19:24] VITALS: BP 128/83; PULSE 85; TEMP 37; O2SAT 99; BMI 25.0
--- OUTSIDE RECORDS SUMMARY | 2024-05-02 19:30 | XMS_ITS | CCD ---
Author Organization [facility] Care Team Providers Care Adult [employer] In[employer] Name Role Phone YELITZA JONES Unavailable Unavailable JOSE L, TANESHA S Unavailable Unavailable JOSE L, TANESHA S Unavailable Unavailable JONES, DR YELITZA Ma Consulting Unavailable JONES, DR YELITZA Ma Attending Unavailable JONES, DR YELITZA Ma Admitting Unavailable JONES, DR YELITZA Ma Primary Care Unavailable JONES, DR YELITZA Ma Primary Care Unavailable SABA, SYL Admitting Unavailable FABIANA, DR UMBERTO Licona Consulting Unavailable SABA, SYL Attending Unavailable SABA, SYL Consulting Unavailable SHAIKH PRATHER Consulting Unavailable SHAIKH PRATHER Attending Unavailable JONES, DR YELITZA Ma Primary Care Unavailable SHAIKH PRATHER Admitting Unavailable JONES, DR YELITZA Ma Primary Care Unavailable JAYSON MEYER Attending Unavailable JAYSON MEYER Admitting Unavailable JAYSON MEYER Consulting Unavailable Joel Cole Consulting Unavailable KAREN, DR YELITZA Ma Primary Care Unavailable JAYSON MEYER Attending Unavailable JAYSON MEYER Admitting Unavailable TERRI CURRY Attending Unavailable JONES, DR YELITZA Ma Primary Care Unavailable TERRI CURRY Admitting Unavailable HARDIN, DR DIANA Beckwith Consulting Unavailable TERRI CURRY [...] Unavailable JONES, DR YELITZA Ma Attending Unavailable KAREN, DR YELITZA Ma Admitting Unavailable JONES, DR [...] Unavailable MD Yelitza Jones Primary Care Provider JAGDISH Estrada Attending Provider Yelitza Jones Unavailable Hilary Pierce Unavailable Luisa Mckeon Unavailable Unavailable Primary Care Provider UnavailMD Umberto Bruce Attending Provider [phone] Umberto Dia Attending Unavailable Umberto Dia Admitting Unavailable Efrain Jean Baptiste Attending Unavailable Efrain Jean Baptiste Admitting Unavailable Yelitza Jones Primary Care Unavailable SAMMI ESTRADA Attending Unavailab CLINT Nur Attending Unavailable EFRAIN JEAN BAPTISTE Attending Unavailable EFRAIN JEAN BAPTISTE Attending Unavailable SAMMI ESTRADA Attending Unavailab le Allergies Allergy Classification Reported Allergen(s) Allergy Type Date of Onset Reaction(s) Facility (1 source) NSAIDs Drug allergy (disorder) [facility] (13 sources) NSAIDs Propensity to adverse reactions 02-17-20 21 Unknown [facility] Other (11 sources) Penicillin Drug Allergy Unknown [facility] Other (13 sources) SUMAtriptan Drug Allergy 02-11-20 24 Unknown, [facility] (9 sources) metroNIDAZOLE Drug Allergy 01-10-20 18 Unknown, [facility] (5 sources) Pseudoephedrine Drug Allergy 02-16-20 19 Unknown [facility] Other (1 source) Allergies Reconciled Propensity to adverse reactions Unknown [facility] Other (1 source) patient allergy list reviewed by nurse or physicia Propensity to adverse reactions 03-16-20 Comment:Done [facility] Other (2 sources) Amoxicillin Drug Allergy 06-09-[address] [facility] (3 sources) Penicillins; Translations: [Penicillins] Allergy to substance 02-11-20 Hives [facility] (3 sources) NSAIDS (Non-Steroidal Anti-Inflamma; Translations: [NSAIDS (Non-Steroidal Anti-Inflamma] Allergy to substance 02-11-20 Unknown Reaction, kidney disease [facility] (1 source) metroNIDAZOLE Drug Allergy 02-11-20 [facility] (1 source) SUMAtriptan Drug Allergy 02-11-20 [facility] Medications Current Medications Medication Drug Class(es) Dates Sig (Normalized) Sig (Original) [id number] 200 actuat albuterol 0.09 mg/actuat metered dose [...] May, Active azithromycin 250 mg oral tablet (14 sources) Macrolide Antimicrobial Start: 02-11-2024 take 2 tablets by mouth once daily, then take 1 tablet by mouth once daily Azithromycin (Zithromax Z-Alexy) 250 mg tablet Active 250 MG PO Daily 04 14February 11, 2024 12:00am take 2 tabs today and 1 daily for the next 4 days Start: 03-10-2023 Azithromycin 2 50 MG as directed Orally [...] 18 pills 18 tablet 1 07/22/2023 Active modafinil 200 mg oral tablet (5 sources) Sympathomimetic-like Agent take 1 tablet by mouth every twenty-four hours Modafinil 200 MG 1 tablet once a day Active Modafinil Active naltrexone hydrochloride 50 mg oral tablet (15 sources) Opioid Antagonist Start: 02-02-2024 take 50 mg by mouth once daily Naltrexone Active 50 MG PO Daily February 02, 2024 12:00am take 3 mg by mouth in the mornin g naltrexone (Depade) 50 MG tablet Take 3 mg by mouth in the morning. 0 Active Naltrexone Activ e Serdexmethylphen-Dexmethylph en (2 sources) Start: 02-11-2024 Serdexmethylphen-Dexmethylph en (Azstarys) 26.1 mg- 5.2 mg capsule Active 1 TAB PO Every morning February 11, 2024 12:00am sertraline 50 mg oral tablet (20 sources) Seroto zainab Reupta ke Inhibi tor Start: 02-02-2024 take 1 tablet by mouth once daily Sertraline (Zoloft) 50 mg tablet Active 50 MG PO Daily February 02, 2024 12:00am [employer] tablet Orally Once a day; Note: Source Status: Taking; Provider: Linda Moran ( ) Start: 05-09-2023 sertraline (Zo loft) 50 MG tablet Indications: Migraine, unspecified, not intractable, without status migrainosus (CMS/HCC) TAKE 1 AND 1/2 TABLETS BY MOUTH EVERY DAY 135 tablet 2 05/09/2023 Active take 1 tablet by jasvir th every twenty-four hours Zoloft 25 MG 1 [...] for 10 days March, Not-Taking/PRN Start: 03-10-2023 lisdexamfetamine dimesylate 40 mg oral capsule (11 sources) Central Nervous System Stimulant Start: 02-02-2024 End: 02-11-2024 take 1 capsule by mouth once daily in the morning Lisdexamfetamine Discontinued 1 CAP PO Daily February 02, 2024 12:00am February 11, 2024 11:22am [employer] capsule in the morning Orally Once a day; Note: Source Status: Taking; Provider: Linda Moran ( ) Start: 12-25-2023 End: 01-24-2024 take 1 capsule [...] 11/19/2023 12/25/2023 Discontinued take 1 capsule by [facility] every twenty-four hours Vyvanse 40 MG 1 capsule in the morning Orally Once a day Active methylPREDNISolone 4 mg oral tablet (9 sources) [...] usually diagnosed in infancy, childhood, or adolescence (2 sources) Attention deficit hyperactivity disorder, predominantly inattentive type; Translations: [Other specified behavioral and emotional disorders with onset usually occurring in childhood and adolescence] Onset: 03-10-2024 12-25-2023 Chronic Fluid and electrolyte disorders (2 [...] Translations: [Proteinuria, unspecified] Episodic Headache; including migraine (9 sources) Chronic migraine without aura, not intractable, [...] lesions; Translations: [Nephrotic syndrome] Onset: 11-29-2016 Chronic Nonmalignant breast conditions (2 sources) Mastodynia; Translations: [Pain of right breast] 01-20-2024 Episodic Nutritional deficiencies (2 sources) Vitamin D deficiency; [...] sinusitis, unspecified] Chronic Other upper respiratory infections (10 sources) Acute maxillary sinusitis, unspecified; Translations: [Acute sinusitis] Onset: 11-19-2013 Episodic Otitis media and related conditions (5 sources) Acute secretory otitis media; Translations: [Other acute nonsuppurative otitis media, right ear] Onset: 09-04-2018 Episodic Residual codes; unclassified (4 sources) Localized edema; Translations: [LOCALIZED EDEMA] Onset: 05-18-2021 Episodic Residual codes; unclassified (1 source) Family history of diabetes mellitus; Translations: [Family history of diabetes mellitus] Episodic Residual codes; unclassified (1 source) Tobacco user; Translations: [Tobacco use] Episodic Past or Other Problems Problem Classification Problem [...] Test Name Value Interpretation Reference Range Facility MR head/brain wo/w [facility] MR head/brain wo/w [facility] [place] [address] MRI Report Signed Patient: Celi Madrid MR#: [id number] : 1985 Acct:[id number] Age/Sex: 38 / F ADM Date: 03/10/24 Loc: MR Room: Type: [facility] Attending Dr: Efrain Jean Baptiste MD Copies to: Efrain Jean Baptiste MD Ordering Provider: Efrain Jean Baptiste MD Date of Service: 03/10/24 MR/MR head/brain wo/w con: [id number] MRI of the brain with and without IV contrast. Reason for exam: Daily migraines with numbness and tingling involving the upper extremities. COMPARISON: Brain MRI 09/12/2022. TECHNIQUE: Multisequence, multiplanar imaging of the brain was performed before and after the use of IV contrast. FINDINGS: No evidence of restricted diffusion is an diffusion-weighted imaging. No evidence of blood products are seen on T2 Star imaging. A few punctate foci of abnormal white matter signal is seen on the T2 FLAIR imaging within the right frontal lobe grossly similar to the prior MRI study. Ventricular system appears unremarkable. Prominent left-sided perivascular space. Midbrain, fred, medulla and cerebellum all appear unremarkable other than 4 mm of downward displacement of the cerebellar tonsils similar to the prior study.. Intraorbital contents appear unremarkable. No air- fluid levels are seen within the visualized paranasal sinuses. Postcontrast imaging demonstrates no abnormal enhancement. MR/MR head/brain wo/w con IMPRESSION: No significant change in brain findings compared to 09/12/2022 study. No acute intracranial abnormality or abnormal enhancement is seen. Impression dictated by: Bran Izaguirre Jr., D.ONaman03/11/2024 9:41 AM Dictation Location: [place] [address] Transcribed By: [facility] 03/11/24940 Dictated By: Bran Izaguirre Jr, DO 03/11/2438 Signed By: 03/11/24940 Normal [facility] [place] 03-04-2024 L Specimen: [id number] Received: 03/05/24 Status: SUSAN [place] Num: [id number] Spec Type: Surgical Subm Dr: Umberto Dia MD Tissues: A BREAST CORE NO CALCS (RT BREAST 9:00) Procedures: HE/4, Gross/Micro L4 Age/ Patient Sex Location Account Attending Physician Celi Madrid 38/F LABELL [id number] Umberto Dia MD SPEC NUM: [id number] RECD: 03/05/24 STATUS: SUSAN [place] NUM: [id number] LIS: 03/04/24- SUBM DR: Umberto Dia MD ENTERED: 03/05/[address] [facility] [address]: Charmaine Corbin SPEC TYPE: Surgical DEPT: FIORELLA COHEN ORDERED: HE/4, Gross/Micro L4 ORDERED: HE/4, Gross/Micro L4 Pathological Diagnosis Right breast lesion at 9:00, ultrasound?guided core biopsy: - Fibroadenoma. - Note: The tumor measures at least 11 mm in maximal linear extent. Foci of atypical ductal hyperplasia or in situ lobular neoplasia are not identified. There is no in situ or invasive carcinoma. Gross Description Received in formalin, labeled with the patient's name and right breast 9:00 lesion are 5 king-yellow fibrofatty tissue cores ranging from 1.2 cm to 0.7 cm in length by 0.2 cm in diameter. There is an additional 1.2 x 0.3 x 0.2 cm aggregate of fibrofatty tissue fragments. The specimen is entirely submitted in A1?A2. Time of collection: 03/04/2024 at 1449 Time in formalin: 03/04/2024 at 1457 Time at gross: 03/05/2024 at 1441 CPT Codes 27218 Specimen: [id number] Received: 03/05/24 Status: SUSAN [place] Num: [id number] Spec Type: Surgical Subm Dr: Umberto Dia MD Tissues: A BREAST CORE NO CALCS (RT BREAST 9:00) Procedures: Aleshia MIRANDA/Kaushik L4 Patient: Celi Madrid [id number] (Continued) Signed (signature on file) Diana Lang MD 03/08/24 1200 Normal [facility] No Panel InformationOrdered By: Luisa Mckeon on 02-11-2024 Quick Strep (POC) [facility] COVID/FLU/RSV RT-PCRon 11-14 SARS-CoV-2 (COVID-19) RNA ROXANA+probe Ql (Unsp spec) Negative [facility] Other COVID/FLU/RSV RT-PCR Negative [facility] Other COVID/FLU/RSV RT-PCR Positive [facility] Other COVID Quick Testingon 2022 Result Negative [facility] Other COVID/FLU/RSV RT-PCRon 10-09 SARS-CoV-2 (COVID-19) RNA ROXANA+probe Ql (Unsp spec) Positive [employer] Other COVID/FLU/RSV RT-PCR Negative [facility] Other CBC AUTO DIFFon 08-14-2021 BASO # 0.0 103/ul Normal 0.0-0.1 [facility] Comment on above: Performed By: #### C MP, LIPID #### [facility] [address] [place] [address] Dr. Sd Jarrett Basophils/100 WBC (Bld) 0.5 % Normal 0.2-2.0 [facility] Comment on above: Performed By: #### C MP, LIPID #### [facility] [address] [place] [address] Dr. Sd Jarrett EO # 0.1 103/ul Normal 0.0-0.7 [facility] Comment on above: Performed By: #### C MP, LIPID #### [facility] [address] [place] [address] Dr. Sd Jarrett Eosinophils/100 WBC (Bld) 1.3 % Normal 0.9-7.0 [facility] Comment on above: Performed By: #### C MP, LIPID #### [facility] [address] [place] [address] Dr. Sd Jarrett Erythrocyte distribution width (RBC) [Ratio] 12.5 % Normal 11.0-15.0 [facility] Comment on above: Performed By: #### C MP, LIPID #### [facility] [address] [place] [address] Dr. Sd Jarrett Hematocrit (Bld) [Volume fraction] 40.3 % Normal 36.0-48.0 [facility] Comment on above: Performed By: #### C MP, LIPID #### [facility] [address] [place] [address] Dr. Sd Jarrett Hemoglobin (Bld) [Mass/Vol] 12.8 g/dL Normal 12.0-16.0 [facility] Comment on above: Performed By: #### C MP, LIPID #### [facility] [address] [place] [address] Dr. Sd Jarrett IG # 0.03 10e3/ul Normal 0.00-0.03 [facility] Comment on above: Performed By: #### C MP, LIPID #### [facility] [address] [place] [address] Dr. Sd Jarrett IG % 0.3 % Normal 0.0-0.5 [facility] Comment on above: Performed By: #### C MP, LIPID #### [facility] [address] [place] [address] Dr. Sd Jarrett LYMPH # 2.3 103/ul Normal 1.2-3.8 [facility] Comment on above: Performed By: #### C MP, LIPID #### [facility] [address] [place] [address] Dr. Sd Jarrett Lymphocytes/100 WBC (Bld) 26.7 % Normal 20.5-60.0 [facility] Comment on above: Performed By: #### C MP, LIPID #### [facility] [address] [place] [address] Dr. Sd Jarrett MANUAL DIFF REQ NO Normal [facility] Comment on above: Performed By: #### C MP, LIPID #### [facility] [address] [place] [address] Dr. Sd Jarrett MCH (RBC) [Entitic mass] 29.3 pg Normal 26.7-34.0 [facility] Comment on above: Performed By: #### C MP, LIPID #### [facility] [address] [place] [address] Dr. Sd Jarrett MCHC (RBC) [Mass/Vol] 31.8 g/dL Normal 29.9-35.2 [facility] Comment on above: Performed By: #### C MP, LIPID #### [facility] [address] [place] [address] Dr. Sd Jarrett MCV (RBC) [Entitic vol] 92.2 fL Normal 81.0-99.0 [facility] Comment on above: Performed By: #### C MP, LIPID #### [facility] [address] [place] [address] Dr. Sd Jarrett MONO # 0.5 103/ul Normal 0.3-0.8 [facility] Comment on above: Performed By: #### C MP, LIPID #### [facility] [address] [place] [address] Dr. Sd Jarrett Monocytes/100 WBC (Bld) 5.8 % Normal 1.7-12.0 [facility] Comment on above: Performed By: #### C MP, LIPID #### [facility] [address] [place] [address] Dr. Sd Jarrett NEUT # 5.6 103/ul Normal 1.4-6.5 [facility] Comment on above: Performed By: #### C MP, LIPID #### [facility] [address] [place] [address] Dr. Sd Jarrett Neutrophils/100 WBC (Bld) 65.4 % Normal 43.0-75.0 [facility] Comment on above: Performed By: #### C MP, LIPID #### [facility] [address] [place] [address] Dr. Sd Jarrett Platelet mean volume (Bld) [Entitic vol] 9.9 fL Normal 9.5-13.5 [facility] Comment on above: Performed By: #### C MP, LIPID #### [facility] [address] [place] [address] Dr. Sd Jarrett PLT 315 103/ul Normal 150-450 [facility] Comment on above: Performed By: #### C MP, LIPID #### [facility] [address] [place] [address] [address] Sd Jarrett RBC 4.37 106/ul Normal 4.20-5.40 [facility] Comment on above: Performed By: #### C MP, LIPID #### [facility] [address] [place] [address] Dr. Sd Jarrett WBC 8.6 103/ul Normal 4.0-11.0 [facility] Comment on above: Performed By: #### C MP, LIPID #### [facility] [address] [place] [address] Dr. Sd Jarrett LIPID PROFILEon 08-14-2021 CHOL-HDL RATIO NORM SEE BELOW Normal [facility] Comment on above: Result Comment: 3.3 - 4.4 LOW RISK 4.4 - 7.1 AVERAGE RISK 7.1 - 11.0 MODERATE RISK >11.0 HIGH RISK Performed By: #### C MP, LIPID #### [facility] [address] [place] [address] Dr. Sd Jarrett Cholesterol [Mass/Vol] 294 mg/dL Critically high <=200 [facility] Comment on above: Performed By: #### C MP, LIPID #### [facility] [address] [place] [address] Dr. Sd Jarrett Cholesterol in HDL [Mass/Vol] 64 mg/dL Normal [facility] Comment on above: Performed By: #### C MP, LIPID #### [facility] [address] [place] [address] Dr. Sd Jarrett Cholesterol in LDL [Mass/Vol] 192.4 mg/dL Normal [facility] Comment on above: Performed By: #### C MP, LIPID #### [facility] [address] [place] [address] [address] Sd Jarrett Cholesterol.total/Ch olesterol in HDL [Mass ratio] 4.6 {ratio} Normal [facility] Comment on above: Performed By: #### C MP, LIPID #### [facility] [address] [place] [address] [address] Sd Jarrett HDL NORMAL > or = 60 mg/dl - LO W CARDIOVASCULAR RISK <40 mg/dl - HIGH CARDIOVASCULAR RISK Normal [facility] Comment on above: Performed By: #### C MP, LIPID #### [facility] [address] [place] [address] [address] Sd Jarrett LDL CALC NORMAL SEE BELOW Normal [facility] Comment on above: Result Comment: <100 mg/dl OPTIMAL 100 - 129 mg/dl NEAR OR ABOVE OPTIMAL 130 - 159 mg/dl BORDERLINE HIGH 160 - 189 mg/dl HIGH >190 mg/dl VERY HIGH Performed By: #### C MP, LIPID #### [facility] [address] [place] [address] Dr. Sd Jarrett Triglyceride [Mass/Vol] 188 mg/dL Critically high <=150 [facility] Comment on above: Performed By: #### C MP, LIPID #### [facility] [address] [place] [address] Dr. Sd Jarrett VLDL CALC 37.6 mg/dL Normal [facility] Comment on above: Performed By: #### C MP, LIPID #### [facility] [address] [place] [address] Dr. dS Jarrett PROF 14(COMP METB)on 021 Albumin [Mass/Vol] 3.4 g/dL Critically low 3.5-5.0 [facility] Comment on above: Performed By: #### C MP, LIPID #### [facility] [address] [place] [address] Dr. Sd Jarrett Albumin/Globulin [Mass ratio] 0.9 {ratio} Normal [facility] Comment on above: Performed By: #### C MP, LIPID #### [facility] [address] [address] [address] Sd Jarrett ALP [Catalytic activity/Vol] 69 U/L Normal 38-126 [facility] Comment on above: Performed By: #### C MP, LIPID #### [facility] [address] [place] [address] Dr. Sd Jarrett ALT [Catalytic activity/Vol] 32 U/L Normal 9-52 [facility] Comment on above: Performed By: #### C MP, LIPID #### [facility] [address] [place] [address] Dr. Sd Jarrett Anion gap [Moles/Vol] 9.4 mmol/L Normal [facility] Comment on above: Performed By: #### C MP, LIPID #### [facility] [address] [place] [address] Dr. Sd Jarrett AST [Catalytic activity/Vol] 16 U/L Normal 14-36 [facility] Comment on above: Performed By: #### C MP, LIPID #### [facility] [address] [place] [address] Dr. Sd Jarrett Bilirubin [Mass/Vol] 0.2 mg/dL Normal 0.2-1.3 [facility] Comment on above: Performed By: #### C MP, LIPID #### [facility] [address] [place] [address] Dr. Sd Jarrett Calcium [Mass/Vol] 8.9 mg/dL Normal 8.4-10.2 [facility] Comment on above: Performed By: #### C MP, LIPID #### [facility] [address] [place] [address] Dr. Sd Jarrett Chloride [Moles/Vol] 100 mmol/L Normal 98-107 [facility] Comment on above: Performed By: #### C MP, LIPID #### [facility] [address] [place] [address] Dr. Sd Jarrett CO2 [Moles/Vol] 30.5 mmol/L Critically high 22.0-30.0 [facility] Comment on above: Performed By: #### C MP, LIPID #### [facility] [address] [place] [address] Dr. Sd Jarrett Creatinine [Mass/Vol] 0.60 mg/dL Normal 0.52-1.04 [facility] Comment on above: Performed By: #### C MP, LIPID #### [facility] [address] [place] [address] Dr. Sd Jarrett EGFR-AF [facility] >60 Normal >=60 [facility] Comment on above: Performed By: #### C MP, LIPID #### [facility] [address] [place] [address] [address] Sd Jarrett EGFR-NON AF [facility] >60 Normal >=60 [facility] Comment on above: Performed By: #### C MP, LIPID #### [facility] [address] [place] [address] Dr. Sd Jarrett Globulin (S) [Mass/Vol] 4.0 g/dL Normal [facility] Comment on above: Performed By: #### C MP, LIPID #### [facility] [address] [place] [address] Dr. Sd Jarrett Glucose [Mass/Vol] 76 mg/dL Normal 74-106 [facility] Comment on above: Performed By: #### C MP, LIPID #### [facility] [address] [place] [address] Dr. Sd Jarrett Potassium [Moles/Vol] 3.9 mmol/L Normal 3.4-5.0 [facility] Comment on above: Performed By: #### C MP, LIPID #### [facility] [address] [place] [address] Dr. Sd Jarrett Protein [Mass/Vol] 7.4 g/dL Normal 6.1-8.2 [facility] Comment on above: Performed By: #### C MP, LIPID #### [facility] [address] [place] [address] Dr. Sd Jarrett Sodium [Moles/Vol] 136 mmol/L Critically low 137-145 [facility] Comment on above: Performed By: #### C MP, LIPID #### [facility] [address] [place] [address] Dr. Sd Jarrett Urea nitrogen [Mass/Vol] 10.0 mg/dL Normal 7.0-17.0 [facility] Comment on above: Performed By: #### C MP, LIPID #### [facility] [address] [place], [place] [address] Dr. Sd Jarrett Urea nitrogen/Creatinine [Mass ratio] 16.7 mg/mg Normal [facility] Comment on above: Performed By: #### C MP, LIPID #### [facility] [address] [place], [place] [address] Dr. Sd Jarrett XR FOOT LIAM MIN [...] acute bone abnormality. Electronically authenticated by: UMBERTO DIA Date: 2021-07-05 14:12 Normal [facility] XR FOOT LIAM MIN 3 VIEWSon [...] by: JOEL COLE Date: 2021-06-12 15:05 Normal [facility] XR FOOT LIAM MIN 3 VIEWSon [...] CONCLUSION: Normal examination. Electronically authenticated by: UMBERTO DIA Date: 2021-05-23 08:04 Normal [facility] CBC AUTO DIFFon 05-18-2021 BASO # 0.0 103/ul Normal 0.0-0.1 [facility] Comment on above: Performed By: #### C BC #### [facility] [address] [place] [id number] Woody Yulissa Basophils/100 WBC (Bld) 0.4 % Normal 0.2-2.0 [facility] Comment on above: Performed By: #### C BC #### [facility] [address] [place], [place] [id number] Woody Yulissa EO # 0.1 103/ul Normal 0.0-0.7 [facility] Comment on above: Performed By: #### C BC #### [facility] [address] [place], [place] [id number] Woody Yulissa Eosinophils/100 WBC (Bld) 1.4 % Normal 0.9-7.0 [facility] Comment on above: Performed By: #### C BC #### [facility] [address] [place], [place] [id number] Woody Yulissa Erythrocyte distribution width (RBC) [Ratio] 12.4 % Normal 11.0-15.0 [facility] Comment on above: Performed By: #### C BC #### [facility] [address] [place], [place] [id number] Woody Yulissa Hematocrit (Bld) [Volume fraction] 40.1 % Normal 36.0-48.0 [facility] Comment on above: Performed By: #### C BC #### [facility] [address] [place], [place] [id number] Woody Yulissa Hemoglobin (Bld) [Mass/Vol] 13.2 g/dL Normal 12.0-16.0 [facility] Comment on above: Performed By: #### C BC #### [facility] [address] [place], [place] [id number] Woody Yulissa IG # 0.03 10e3/ul Normal 0.00-0.03 [facility] Comment on above: Performed By: #### C BC #### [facility] [address] [place], [place] [id number] Woody Yulissa IG % 0.4 % Normal 0.0-0.5 [facility] Comment on above: Performed By: #### C BC #### [facility] [address] [place] [address] Woody Yulissa LYMPH # 2.1 103/ul Normal 1.2-3.8 [facility] Comment on above: Performed By: #### C BC #### [facility] [address] [place] [address] Woody Yulissa Lymphocytes/100 WBC (Bld) 29.1 % Normal 20.5-60.0 [facility] Comment on above: Performed By: #### C BC #### [facility] [address] [place], [place] [id number] Woody Yulissa MANUAL DIFF REQ NO Normal [facility] Comment on above: Performed By: #### C BC #### [facility] [address] [place], [place] [id number] Woody Yulissa MCH (RBC) [Entitic mass] 29.5 pg Normal 26.7-34.0 [facility] Comment on above: Performed By: #### C BC #### [facility] [address] [place], [place] [id number] Woody Yulissa MCHC (RBC) [Mass/Vol] 32.9 g/dL Normal 29.9-35.2 [facility] Comment on above: Performed By: #### C BC #### [facility] [address] [place], [place] [id number] Woody Yulissa MCV (RBC) [Entitic vol] 89.7 fL Normal 81.0-99.0 [facility] Comment on above: Performed By: #### C BC #### [facility] [address] [id number] Woodyanika Mcclouden MONO # 0.4 103/ul Normal 0.3-0.8 [facility] Comment on above: Performed By: #### C BC #### [facility] [address] [place], [place] [id number] Woodyanika Mcclouden Monocytes/100 WBC (Bld) 5.6 % Normal 1.7-12.0 [facility] Comment on above: Performed By: #### C BC #### [facility] [address] [place] [address] Woody Yulissa NEUT # 4.6 103/ul Normal 1.4-6.5 [facility] Comment on above: Performed By: #### C BC #### [facility] [address] [place] [address] Woody Duenas Neutrophils/100 WBC (Bld) 63.1 % Normal 43.0-75.0 [facility] Comment on above: Performed By: #### C BC #### [facility] [address] [place], [place] [id number] Woodyanika Duenas Platelet mean volume (Bld) [Entitic vol] 9.3 fL Critically low 9.5-13.5 [facility] Comment on above: Performed By: #### C BC #### [facility] [address] [place], [place] [id number] Woody Yulissa PLT 278 103/ul Normal 150-450 [facility] Comment on above: Performed By: #### C BC #### [facility] [address] [place] [address] Woody Yulissa RBC 4.47 106/ul Normal 4.20-5.40 [facility] Comment on above: Performed By: #### C BC #### [facility] [address] [place] [address] Woody Yulissa WBC 7.3 103/ul Normal 4.0-11.0 [facility] Comment on above: Performed By: #### C BC #### [facility] [address] [place], [place] [id number] Woodyanika Mcclouden FERRITINon 05-18-2021 Ferritin [Mass/Vol] 75.0 ng/mL Normal 6.2-137.0 [facility] Comment on above: Performed By: #### C MP, LIPID #### [facility] [address] [place], [place] [address] Dr. Sd Jarrett RENAL FUNCTION PANELon 05-18 Albumin [Mass/Vol] 3.4 g/dL Critically low 3.5-5.0 [facility] Comment on above: Performed By: #### R ENAL ####[facility] [address] [place], [place] [address]Fitevk Yulissa Calcium [Mass/Vol] 8.9 mg/dL Normal 8.4-10.2 [facility] Comment on above: Performed By: #### R ENAL ####[facility] [address] [place], [place] [address]Qoequn Yulissa Chloride [Moles/Vol] 105 mmol/L Normal 98-107 [facility] Comment on above: Performed By: #### R ENAL ####[facility] Glwkrogsmv5750 [place], [place] [address]Yzzmpj Yulissa CO2 [Moles/Vol] 27.6 mmol/L Normal 22.0-30.0 [facility] Comment on above: Performed By: #### R ENAL ####[facility] Evgpfjhody4699 [place], [place] [address]Cevviw Yulissa Creatinine [Mass/Vol] 0.64 mg/dL Normal 0.52-1.04 [facility] Comment on above: Performed By: #### R ENAL ####[facility] Y[address]ainmuq30[address] [place], [place] [address]Nxqgdc Yulissa EGFR-AF ST LUCIAN >60 Normal >=60 [facility] Comment on above: Performed By: #### R ENAL ####[facility] Csyoafhtzb5730 [place], [place] [address]Uiqaun Yulissa EGFR-NON AF ST LUCIAN >60 Normal >=60 [facility] Comment on above: Performed By: #### R ENAL ####[facility] Fnfdjnjjxi64[address] [place], [place] [address]Mhjxfe Yulissa Glucose [Mass/Vol] 62 mg/dL Critically low 74-106 [facility] Comment on above: Performed By: #### R ENAL ####[facility] [address] [place], [place] [address]Gerken Yulissa Phosphate [Mass/Vol] 2.4 mg/dL Critically low 2.5-4.5 [facility] Comment on above: Performed By: #### R ENAL ####[facility] [address] [id number] Yulissa Potassium [Moles/Vol] 4.1 mmol/L Normal 3.4-5.0 [facility] Comment on above: Performed By: #### R ENAL ####[facility] [address] [place] [address] Yulissa Sodium [Moles/Vol] 141 mmol/L Normal 137-145 [facility] Comment on above: Performed By: #### R ENAL ####[facility] [address] [place], [place] [address]Gerken Yulissa Urea nitrogen [Mass/Vol] 12.0 mg/dL Normal 7.0-17.0 [facility] Comment on above: Performed By: #### R ENAL ####[facility] [address] [place], [place] [address]Gerken Yulissa UA RANDOM W/MICROSCOPICon BACTERIA SMALL Abnormal NONE SEEN [facility] Comment on above: Performed By: #### U AMIC ####[facility] [address] [place], [place] [address]Gerken Yulissa Bilirubin Ql (U) Negative Normal NEGATIVE [facility] Comment on above: Performed By: #### U AMIC ####[facility] [address] [place], [place] [address]Gerken Yulissa CAST NONE SEEN Normal NONE SEEN [facility] Comment on above: Performed By: #### U AMIC ####[facility] [address] [place], [place] [address]Gerken Yulissa Clarity (U) CLEAR Normal CLEAR [facility] Comment on above: Performed By: #### U AMIC ####[facility] [address]x2514 [place], [place] [address]Qcxiau Yulissa Color (U) YELLOW Normal YELLOW [facility] Comment on above: Performed By: #### U AMIC ####[facility] Dmgedfdhod8055 [place], [place] [address]Gtqzkd Yulissa Crystals LM Nom (Urine sed) NONE SEEN Normal NONE SEEN [facility] Comment on above: Performed By: #### U AMIC ####[facility] [address] [phone] Yulissa Epithelial cells LM Ql (Urine sed) MODERATE Abnormal NONE SEEN /RARE [facility] Comment on above: Performed By: #### U AMIC ####[facility] Fcmljpnm[address] [place], [place] [address]Gerken Yulissa Glucose Ql (U) Negative Normal NEGATIVE [facility] Comment on above: Performed By: #### U AMIC ####[facility] [address]co[address] [place], [place] [address]Gerken Yulissa Hemoglobin Ql (U) MODERATE Abnormal NEGATIVE [facility] Comment on above: Performed By: #### U AMIC ####[facility] [address] [place], [place] [address]Gerken Yulissa Ketones Ql (U) Negative Normal NEGATIVE [facility] Comment on above: Performed By: #### U AMIC ####[facility] [address] [phone] Yulissa LEUKOCYTES Negative Normal NEGATIVE [facility] Comment on above: Performed By: #### U AMIC ####[facility] Mjpsjvxd[address]f4768 [place], [place] [address]Houfkx Yulissa MUCOUS MODERATE Abnormal NONE SEEN [facility] Comment on above: Performed By: #### U AMIC ####[facility] [address] [place], [place] [address]Gerken Yulissa Nitrite Ql (U) Negative Normal NEGATIVE [facility] Comment on above: Performed By: #### U AMIC ####[facility] Y[address] [place], [place] [address] Yulissa pH (U) 5.5 [pH] Normal 5-9 [facility] Comment on above: Performed By: #### U AMIC ####[facility] [address] [id number] Yulissa RBC 0-2 Normal 0-2 [facility] Comment on above: Performed By: #### U AMIC ####[facility] Ywirmtb[address]jb[address] Yulissa SPEC GRAVITY >=1.030 Abnormal 1.005-<=1.0 25 [facility] Comment on above: Performed By: #### U AMIC ####[facility] Avaxv[address]cia[address] Yulissa UA PROTEIN 100 mg/dl Abnormal NEGATIVE/ TRACE [facility] Comment on above: Performed By: #### U AMIC ####[facility] I[address]xe[address] Yulissa Urobilinogen Qn (U) 0.2 {Ratna'U}/dL Normal 0.2 - 1. 0 [facility] Comment on above: Performed By: #### U AMIC ####[facility] Nibic[address]fho[address] Yulissa WBC 0-2 Abnormal NONE SEEN [facility] Comment on above: Performed By: #### U AMIC ####[facility] Albye[address]ro[address] Yulissa URINE T PROTEIN CREAT RATIOo n 05-18-2021 Protein (U) [Mass/Vol] 98.3 mg/dL Critically high <=12.0 [facility] Comment on above: Performed By: #### C MP, LIPID #### [facility] [address] [address] [address] Sd Jarrett UR PROT CREAT RAT 0.41 Normal [facility] Comment on above: Performed By: #### C MP, LIPID #### [facility] [address] [address] [address] Sd Jarrett URINE CREAT 240.76 mg/dL Normal 20.00-300.0 0 [facility] Comment on above: Performed By: #### C MP, LIPID #### [facility] [address] [address] [address] Sd Jarrett QUANTIFERON TB GOLD PLUS (NO N-INC)on 05-09-2021 Comment Incubation performed. Normal [facility] Comment on above: Performed By: #### Q NTTBG ####[facility] Armzoayurc[address] Yulissa Criteria Comment Normal [facility] Comment on above: Result Comment: The QuantiFERON-TB Gold Plus result is determined by subtracting the Nil value from either TB antigen (Ag) tube. The mitogen tube serves as a control for the test. Performed By: #### Q NTTBG ####[facility] [address] [place] [address] Yulissa Mitogen Value >10.00 Normal The [facility] Comment on above: Performed By: #### Q NTTBG ####[facility] [address] [place] [address] Yulissa Nill Value 0.00 IU/mL Normal [facility] Comment on above: Performed By: #### Q NTTBG ####[facility] [address] [place] [address] Yulissa Quantiferon Gold Plus Negative Normal Negative [facility] Comment on above: Result Comment: Chem iluminescence immunoassay methodology Performed By: #### Q NTTBG ####[facility] [address] [place] [address] Yulissa TB1 Ag Value 0.00 IU/mL Normal [facility] Comment on above: Performed By: #### Q NTTBG ####[facility] [address] [place] [address] Yulissa TB2 Ag Value 0.00 IU/mL Normal [facility] Comment on above: Performed By: #### Q NTTBG ####[facility] [address] [place] [address] Yulissa HEPATITIS B SURFACE ANTIBODY , QUANTon 05-08-2021 Hepatitis B Surf AB Quant 688.8 mIU/mL Normal Immunity>9. 9 [facility] Comment on above: Result Comment: Stat us of Immunity Anti-HBs Level Inconsistent with Immunity 0.0 - 9.9 Consistent with Immunity >9.9 Performed By: #### H EPBSRF ####[facility] Ieoz[address]kl[address] Yulissa MMR IMMUNITYon 05-08-2021 Mumps Abs, IgG <9.0 Critically low Immune >10.9 [facility] Comment on above: Result Comment: Nega tive <9.0 Equivocal 9.0 - 10.9 Positive >10.9 A positive result generally indicates past exposure to Mumps virus or previous vaccination. Performed By: #### M MRIMMU ####[facility] Mgpcq[address]rr[address] [place]issa Rubella Antibodies, IgG 3.59 index Normal Immune >0.99 [facility] Comment on above: Result Comment: Non- immune <0.90 Equivocal 0.90 - 0.99 Immune >0.99 Performed By: #### M MRIMMU ####[facility] Oh[address] Y[place]issa Rubeola Ab, IgG 280.0 AU/mL Normal Immune >16.4 [facility] Comment on above: Result Comment: Nega tive <13.5 Equivocal 13.5 - 16.4 Positive >16.4 Presence of antibodies to Rubeola is presumptive evidence of immunity except when acute infection is suspected. Performed By: #### M MRIMMU ####[facility] Obwnisyvuc[address] [place] VARICELLA IGG ABon 1 Varicella Zoster IgG 639 index Normal Immune >165 [facility] Comment on above: Result Comment: Nega tive <135 Equivocal 135 - 165 Positive >165 A positive result generally indicates exposure to the pathogen or administration of specific immunoglobulins, but it is not indication of active infection or stage of disease. Performed By: #### C MP, LIPID #### [facility] [address] [place] [address] Dr. Sd Jarrett THYROGLOBULIN ABon Thyroglobulin Antibody <1.0 Normal 0.0-0.9 [facility] Comment on above: Result Comment: Thyr oglobulin Antibody measured by [email or web address] Methodology Performed By: #### T HYGAB #### [facility] [address] [place] [address] Woody Duenas FREE T4on 03-23-2021 Free T4 [Mass/Vol] 0.91 ng/dL Normal 0.78-2.19 [facility] Comment on above: Performed By: #### C MP, LIPID #### [facility] [address] [place] [address] Dr. Sd Jarrett TSHon 03-23-2021 TSH 1.710 uIU/mL Normal 0.470-4.680 [facility] Comment on above: Performed By: #### T SH #### [facility] [address] [place] [address] Woodyanika Duenas TSH RANGE SEE BELOW Normal [facility] Comment on above: Result Comment: <0.3 4 UIU/ml HYPERTHYROID 0.34-5.60 UIU/ml EUTHYROID >5.60 UIU/ml HYPOTHYROID Performed By: #### T SH #### [facility] [address] [place] [address] Woody Duenas MYELIN BASIC PROT CSFon 02-08 Myelin Basic Protein, CSF 2.1 ng/mL Normal 0.0-3.7 [facility] Comment on above: Performed By: #### M BPCSF ####[facility] [address] [id number] Yulissa IMMUNOGLOBULIN G SYNTHESIS R ATE, CSFon 02-20-2021 Albumin [Mass/Vol] 3.7 g/dL Critically low 3.8-4.8 [facility] Comment on above: Performed By: #### I MMUNGC ####[facility] [address] [place], [place] [address]Woody Duenas Albumin, CSF 13 mg/dL Normal 11-48 [facility] Comment on above: Performed By: #### I MMUNGC ####[facility] [address] [place], [place] [address]Mjywrz Yulissa IgG, Quant, CSF 1.9 mg/dL Normal 0.0-8.6 [facility] Comment on above: Performed By: #### I MMUNGC ####[facility] [address] [place], [place] [address]Vjqvam Yulissa IgG, Syn Rate,CSF -1.5 mg/day Normal 9.9 TO +3.3 [facility] Comment on above: Performed By: #### I MMUNGC ####[facility] H[address]wmso59[address] [place], [place] [address]Jwsvie Yulissa Immunoglobulin G, Qn, Serum 935 mg/dL Normal 586-1602 [facility] Comment on above: Performed By: #### I MMUNGC ####[facility] Z[address]lepsx[address] [place], [place] [address]Cirlca Yulissa OILGOCLONAL BANDING CSFon Oligoclonal Bands Comment Normal [facility] Comment on above: Result Comment: Zero (0) [...] Performed By: #### C MP, LIPID #### [facility] [address] [address] [address] Sd Jarrett CELL COUNT CSFon 02-16-2021 CSF CLARITY CLEAR Normal CLEAR [facility] Comment on above: Performed By: #### C CCSF ####[facility] Dmvm[address]ijj[address] [place] Performed By: #### C MP, LIPID #### [facility] [address] [address] [address] Sd Jarrett CSF COLOR COLORLESS Normal COLORLESS [facility] Comment on above: Performed By: #### C CCSF ####[facility] Wfgibaatqx[address] [place] Performed By: #### C MP, LIPID #### [facility] [address] [address] [address] Sd Jarrett CSF RBC 11 cubic mm Normal [facility] Comment on above: Performed By: #### C CCSF ####[facility] Mismq[address]hf[address] [place] CSF RBC 1 cubic mm Normal [facility] Comment on above: Performed By: #### C MP, LIPID #### [facility] [address] [address] [address] Sd Jarrett CSF VOLUME 10.0 mL Normal [facility] Comment on above: Performed By: #### C CCSF ####[facility] Gzthazftbc[address]62 [address] [place] Performed By: #### C MP, LIPID #### [facility] [address] [address] [address] Sd Jarrett CSF WBC 0 cubic mm Normal [facility] Comment on above: Performed By: #### C CCSF ####[facility] Pstigmz[address]yz[address] [place] Performed By: #### C MP, LIPID #### [facility] [address] [address] [address] Sd Jarrett CSF WBC HEADER REFERENCE RANGE 5-10 WBC/cubic mm = BORDERLINE Normal [facility] Comment on above: Performed By: #### C CCSF ####[facility] Jcp[address]fttptj[address] [place] Performed By: #### C MP, LIPID #### [facility] [address] [place], [place] [address] Dr. Sd Jarrett GLUCOSE CSFon 02-16-2021 GLUCOSE CSF 59 mg/dL Normal 40-70 [facility] Comment on above: Performed By: #### G LUCSF, PROTCSF ####[facility] Cuvtkcoxhs[address] [place] LAB TESTINGon 02-16-2021 RECV HEADER SEE SCANNED REPORT IN HPF Normal [facility] Comment on above: Performed By: #### M ISC ####[facility] Wobwuvilmn[address] [place] REV FROM REF LAB 02/16/2021 [facility] [place] Comment on above: Performed By: #### M ISC ####[facility] Hrlmfnwwkn[address] Yulissa SENT TO REF LAB 02/16/2021 Normal [facility] Comment on above: Performed By: #### M ISC ####[facility] Ningesjuhr[address] [place] RECV HEADER SEE SCANNED REPORT IN HPF Normal [facility] Comment on above: Performed By: #### M ISC ####[facility] Ancqibaxfu[address] [place] REV FROM REF LAB 02/21/2021 Normal [facility] Comment on above: Performed By: #### M ISC ####[facility] Rbmakryqgs[address] [place] SENT TO REF LAB 02/17/2021 Normal [facility] Comment on above: Performed By: #### M ISC ####[facility] Eidwdmthvb[address] [place] PROTEIN CSFon 02-16-2021 TOT PROT CSF 29 mg/dL Normal 12-60 [facility] Comment on above: Performed By: #### G LISA, PROTCSF ####[facility] [address] [place], [place] [address]OwlbzmWoody Duenas CNOVon 02-13-2021 CNOV Office Visit (NEMEFV ) ----- TATYANACELI ([id number]) 1985 F Date Time Provider Department 02/13/21 10:00 AM HARDIK GARCIA NEMJAIME During your visit today, we recorded the following information about you: Temperature Pulse Blood pressure Weight 97.8 degrees 91/minute 114/75 71.6 kg Height 1.575 m Hardik Garcia MD 02/13/2021 11:20 AM Signed [facility] Referral source: Yelitza Jones MD [address] [place] [phone] PRINCIPAL NEUROLOGIC DIAGNOSIS: Right arm pain, cognitive [...] expected to be with me at the [facility]. Ms. Madrid notes that in 2016, she had a lot of fatigue and was getting sick frequently. She was sent to an form raiser and was given the pneumonia vaccine but [...] She has followed with Dr. Castillo in [place] at the [facility]. He recommended Ocrevus. She has discussed this with her liver doctor and gotten the ok to proceed with it. Dr. Castillo has suggested a lumbar puncture, but that has not been done yet. 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 Sensory examination: Light [...] which included preparing to see the patient, wuep-[id number] patient care, performing a medically appropriate examination, completing clinical documentation, reviewing records, and counseling/educating the patient/family. Hardik Garcia MD Staff Neurologist [facility] Multiple Sclerosis Referring Provider: SELF [...] extremity [M79.601] Order(s):DAVE/ANGIOTENSIN BLD [SQACE] Order #: [id number] FUTURE ANTI BRENT ID [SQENAID] Order #: [id number] FUTURE JASVIR BY IFA WITH REFLEX [SQANAIFR] Order #: [id number] FUTURE FOLATE SERUM [SQSERFOL] Order #: [id number] FUTURE HOMOCYSTEINE [SQHOMCYS] Order #: [id number] FUTURE LYME AB LATE >30 DAYS SYMPTOMS [SQLMLATE] Order #: [id number] FUTURE METHYLMALONIC ACID [SQMMA] Order #: [id number] FUTURE SYPHILIS TOTAL W/REFLEX [SQSYPHTX] Order #: [id number] FUTURE TSH BLD [SQTSH] Order #: [id number] FUTURE COPPER BLOOD [SQCOPPER] Order #: [id number] FUTURE CERULOPLASMIN BLD [SQCERULO] Order #: [id number] FUTURE Prescriptions as of 02/13/2021 Sig: ROSUVASTATIN [...] Status:Closed by HARDIK GARCIA MD on 02/13/21 [facility] PROGRESSon 02-13-2021 PROGRESS HNO ID: [id number] Author: Hardik Garcia Service: ? Author Type: Physician Type: Progress Notes Filed: 02/13/2021 11:20 AM Note Text: [facility] Referral source: Yelitza Jones MD [address] [place] [phone] PRINCIPAL NEUROLOGIC DIAGNOSIS: Right arm pain, cognitive [...] expected to be with me at the [facility]. Ms. Madrid notes that in 2016, she had a lot of fatigue and was getting sick frequently. She was sent to an form raiser and was given the pneumonia vaccine but [...] She has followed with Dr. Castillo in [place] at the [facility]. He recommended Ocrevus. She has discussed this with her liver doctor and gotten the ok to proceed with it. Dr. Castillo has suggested a lumbar puncture, but that has not been done yet. Prior to the above, she denies any history of episodic neurologic impairment that might be consistent with [employer]ER[employer] SUPERVISOR demyelination, such as unilateral visual loss, focal [...] the arms and legs was intact including zfjrf-[id number], rapid-alternating, and fine movements. Sensory examination: Light [...] which included preparing to see the patient, jgow-[id number] patient care, performing a medically appropriate examination, completing clinical documentation, reviewing records, and counseling/educating the patient/family. Hardik Garcia MD Staff Neurologist [facility] for Multiple Sclerosis Normal [facility] MR OUTSIDE CD DICOM IMPORT - NBNRon 01-05-2021 MR OUTSIDE CD DICOM IMPORT -NBNR Images were obtained outside of [facility] [id number] Normal [facility] MR OUTSIDE CD DICOM IMPORT -NBNR Images were obtained outside of [facility] [id number] Normal [facility] XR OUTSIDE CD DICOM IMPORT - NBNRon 01-05-2021 XR OUTSIDE CD DICOM IMPORT -NBNR Images were obtained outside of [facility] [id number] Normal [facility] TOM VIRUS DNA, PCR WHOLE BLO ODon 12-28-2020 TOM Virus DNA,PCR (Whole Blood) Negative Normal Negative [facility] Comment on above: Result Comment: No J CV DNA detected This test was developed and its performance characteristics determined by [facility]. It has not been cleared or approved by the Food and Drug Administration. The FDA has determined that such clearance or approval is not necessary. Performed By: #### J CVPCR ####[facility] [address] [place] [address] QUANTIFERON TB GOLD PLUS (NO N-INC)on 12-27-2020 Comment Incubation performed. Normal [facility] Comment on above: Performed By: #### Q NTTBG ####[facility] [address] [place] [address] Yulissa Criteria Comment Normal [facility] Comment on above: Result Comment: The QuantiFERON-TB Gold Plus result is determined by subtracting the Nil value from either TB antigen (Ag) tube. The mitogen tube serves as a control for the test. Performed By: #### Q NTTBG ####[facility] [address] Yulissa Mitogen Value >10.00 Normal The [facility] Comment on above: Performed By: #### Q NTTBG ####[facility] [address] [place] [address] Yulissa Nill Value 0.17 IU/mL Normal [facility] Comment on above: Performed By: #### Q NTTBG ####[facility] [address] [place], [place] [address]Qjbqyu Yulissa Quantiferon Gold Plus Negative Normal Negative [facility] Comment on above: Performed By: #### Q NTTBG ####[facility] [address] [place], [place] [address]Zdgkth Yulissa TB1 Ag Value 0.16 IU/mL Normal [facility] Comment on above: Performed By: #### Q NTTBG ####[facility] [address] Yulissa TB2 Ag Value 0.17 IU/mL Normal [facility] Comment on above: Performed By: #### Q NTTBG ####[facility] [address] Yulissa HEPATITIS PANEL, ACUTEon HBsAg Screen Negative Normal Negative [facility] Comment on above: Performed By: #### C MP, LIPID #### [facility] [address] [place] [address] Dr. Sd Jarrett Hep A Ab, IgM Negative Normal Negative [facility] Comment on above: Performed By: #### C MP, LIPID #### [facility] [address] [place] [address] Dr. Sd Jarrett Hep B Core Ab, IgM Negative Normal Negative [facility] Comment on above: Performed By: #### C MP, LIPID #### [facility] [address] [place] [address] Dr. Sd Jarrett Hep C Virus Ab <0.1 Normal 0.0-0.9 [facility] Comment on above: Result Comment: Nega tive: < 0.8 Indeterminate: 0.8 - 0.9 Positive: > 0.9 . The CDC recommends that a positive HCV antibody result be followed up with a HCV Nucleic Acid Amplification test (848437). Performed By: #### C MP, LIPID #### [facility] [address] [place] [address] Dr. Sd Jarrett LYME DISEASE AB, TOTAL AND I GM W/WB REFEon 12-25-2020 Lyme Disease Ab, Quant, IgM <0.80 Normal 0.00-0.79 [facility] Comment on above: Result Comment: Nega tive <0.80 Equivocal 0.80 - 1.19 Positive >1.19 . IgM levels may peak at 3-6 weeks post infection, then gradually decline. Performed By: #### C ARDEN, LIPID #### [facility] [address] [address] [address] Sd Jarrett Lyme IgG/IgM Ab <0.91 Normal 0.00-0.90 [facility] Comment on above: Result Comment: Nega tive <0.91 Equivocal 0.91 - 1.09 Positive >1.09 Performed By: #### C ARDEN, LIPID #### [facility] [address] [place] [address] Dr. Sd Jarrett VARICELLA ZOSTER VIRUS IGM Q UANTon 12-25-2020 Varicella-Zoster Ab, IgM <0.91 Normal 0.00-0.90 [facility] Comment on above: Result Comment: Nega tive <0.91 Borderline 0.91 - 1.09 Positive >1.09 Performed By: #### V ARCIGM ####[facility] [address] [place] [address]Woody Duenas IMMUNOGLOBULIN IGG QUANTITAT IVEon 12-24-2020 Immunoglobulin G, Qn, Serum 839 mg/dL Normal [phone] [facility] Comment on above: Performed By: #### C ARDEN, LIPID #### [facility] [address] [place] [address] Dr. Sd Jarrett IMMUNOGLOBULIN IGM QUANTITAT IVEon 12-24-2020 Immunoglobulin M, Qn, Serum 170 mg/dL Normal 26-217 [facility] Comment on above: Performed By: #### C MP, LIPID #### [facility] [address] [place] [address] Dr. Sd Jarrett VARICELLA IGG ABon 1 Varicella Zoster IgG 641 index Normal Immune >165 [facility] Comment on above: Result Comment: Nega tive <135 Equivocal 135 - 165 Positive >165 A positive result generally indicates exposure to the pathogen or administration of specific immunoglobulins, but it is not indication of active infection or stage of disease. Performed By: #### C MP, LIPID #### [facility] [address] [place] [address] Dr. Sd Jarrett CBC AUTO DIFFon 12-23-2020 BASO # 0.0 103/ul Normal 0.0-0.1 [facility] Comment on above: Performed By: #### C MP, LIPID #### [facility] [address] [place] [address] Dr. Sd Jarrett Basophils/100 WBC (Bld) 0.7 % Normal 0.2-2.0 [facility] Comment on above: Performed By: #### C MP, LIPID #### [facility] [address] [place] [address] Dr. Sd Jarrett EO # 0.2 103/ul Normal 0.0-0.7 [facility] Comment on above: Performed By: #### C MP, LIPID #### [facility] [address] [place] [address] Dr. Sd Jarrett Eosinophils/100 WBC (Bld) 4.1 % Normal 0.9-7.0 [facility] Comment on above: Performed By: #### C MP, LIPID #### [facility] [address] [place] [address] Dr. Sd Jarrett Erythrocyte distribution width (RBC) [Ratio] 12.8 % Normal 11.0-15.0 [facility] Comment on above: Performed By: #### C MP, LIPID #### [facility] [address] [place] [address] Dr. Sd Jarrett Hematocrit (Bld) [Volume fraction] 38.1 % Normal 36.0-48.0 [facility] Comment on above: Performed By: #### C MP, LIPID #### [facility] [address] [place] [address] Dr. Sd Jarrett Hemoglobin (Bld) [Mass/Vol] 12.3 g/dL Normal 12.0-16.0 [facility] Comment on above: Performed By: #### C MP, LIPID #### [facility] [address] [place] [address] Dr. Sd Jarrett IG # 0.02 10e3/ul Normal 0.00-0.03 [facility] Comment on above: Performed By: #### C MP, LIPID #### [facility] [address] [place] [address] Dr. Sd Jarrett IG % 0.5 % Normal 0.0-0.5 [facility] Comment on above: Performed By: #### C MP, LIPID #### [facility] [address] [place] [address] Dr. Sd Jarrett LYMPH # 1.2 103/ul Normal 1.2-3.8 [facility] Comment on above: Performed By: #### C MP, LIPID #### [facility] [address] [place] [address] Dr. Sd Jarrett Lymphocytes/100 WBC (Bld) 26.2 % Normal 20.5-60.0 [facility] Comment on above: Performed By: #### C MP, LIPID #### [facility] [address] [place] [address] Dr. Sd Jarrett MANUAL DIFF REQ NO Normal [facility] Comment on above: Performed By: #### C MP, LIPID #### [facility] [address] [place] [address] Dr. Sd Jarrett MCH (RBC) [Entitic mass] 29.1 pg Normal 26.7-34.0 [facility] Comment on above: Performed By: #### C MP, LIPID #### [facility] [address] [place] [address] Dr. Sd Jarrett MCHC (RBC) [Mass/Vol] 32.3 g/dL Normal 29.9-35.2 [facility] Comment on above: Performed By: #### C MP, LIPID #### [facility] [address] [place] [address] Dr. Sd Jarrett MCV (RBC) [Entitic vol] 90.3 fL Normal 81.0-99.0 [facility] Comment on above: Performed By: #### C MP, LIPID #### [facility] [address] [place] [address] Dr. Sd Jarrett MONO # 0.3 103/ul Normal 0.3-0.8 [facility] Comment on above: Performed By: #### C MP, LIPID #### [facility] [address] [place] [address] Dr. Sd Jarrett Monocytes/100 WBC (Bld) 7.2 % Normal 1.7-12.0 [facility] Comment on above: Performed By: #### C MP, LIPID #### [facility] [address] [place] [address] Dr. Sd Jarrett NEUT # 2.7 103/ul Normal 1.4-6.5 [facility] Comment on above: Performed By: #### C MP, LIPID #### [facility] [address] [place] [address] Dr. Sd Jarrett Neutrophils/100 WBC (Bld) 61.3 % Normal 43.0-75.0 [facility] Comment on above: Performed By: #### C MP, LIPID #### [facility] [address] [place] [address] Dr. Sd Jarrett Platelet mean volume (Bld) [Entitic vol] 9.3 fL Critically low 9.5-13.5 [facility] Comment on above: Performed By: #### C MP, LIPID #### [facility] [address] [place] [address] Dr. Sd Jarrett PLT 177 103/ul Normal 150-450 [facility] Comment on above: Performed By: #### C MP, LIPID #### [facility] [address] [place] [address] Dr. Sd Jarrett RBC 4.22 106/ul Normal 4.20-5.40 [facility] Comment on above: Performed By: #### C MP, LIPID #### [facility] [address] [place] [address] Dr. Sd Jarrett WBC 4.4 103/ul Normal 4.0-11.0 [facility] Comment on above: Performed By: #### C MP, LIPID #### [facility] [address] [place] [address] Dr. Sd Jarrett PREG QUANT HCGon 12-23-2020 HCG QUANT <1 Normal [facility] Comment on above: Performed By: #### C MP, TSH, PREGQNT #### [facility] [address] [id number] Woody Yulissa HCG RANGE SEE BELOW Normal [facility] Comment on above: Result Comment: 5-50 0-1 WEEK 40-300 1-2 WEEKS 100-1,000 2-3 WEEKS 500-6,000 3-4 WEEKS 5,000-200,000 1-2 MONTHS 10,000-100,000 2-3 MONTHS 3,000-50,000 2ND TRIMESTER 1,000-50,000 3RD TRIMESTER Performed By: #### C MP, TSH, PREGQNT #### [facility] [address] [address] Woody Duenas PROF 14(COMP METB)on 021 Albumin [Mass/Vol] 2.8 g/dL Critically low 3.5-5.0 [facility] Comment on above: Performed By: #### C MP, TSH, PREGQNT #### [facility] [address] [id number] Woody Duenas Albumin/Globulin [Mass ratio] 0.7 {ratio} Normal [facility] Comment on above: Performed By: #### C MP, TSH, PREGQNT #### [facility] [address] [id number] Woody Yulissa ALP [Catalytic activity/Vol] 78 U/L Normal 38-126 [facility] Comment on above: Performed By: #### C MP, TSH, PREGQNT #### [facility] [address] [id number] Woody Yulissa ALT [Catalytic activity/Vol] 74 U/L Critically high 9-52 [facility] Comment on above: Performed By: #### C MP, TSH, PREGQNT #### [facility] [address] [id number] Woody Yulissa Anion gap [Moles/Vol] 10.8 mmol/L Normal [facility] Comment on above: Performed By: #### C MP, TSH, PREGQNT #### [facility] [address] [place] [address] Woody Yulissa AST [Catalytic activity/Vol] 50 U/L Critically high 14-36 [facility] Comment on above: Performed By: #### C MP, TSH, PREGQNT #### [facility] [address] [place] [address] Woody Yulissa Bilirubin [Mass/Vol] 0.2 mg/dL Normal 0.2-1.3 [facility] Comment on above: Performed By: #### C MP, TSH, PREGQNT #### [facility] [address] [place] [address] Woody Yulissa Calcium [Mass/Vol] 8.6 mg/dL Normal 8.4-10.2 [facility] Comment on above: Performed By: #### C MP, TSH, PREGQNT #### [facility] [address] [place] [address] Woody Yulissa Chloride [Moles/Vol] 105 mmol/L Normal 98-107 [facility] Comment on above: Performed By: #### C MP, TSH, PREGQNT #### [facility] [address] [place] [address] Woody Yulissa CO2 [Moles/Vol] 28.2 mmol/L Normal 22.0-30.0 [facility] Comment on above: Performed By: #### C MP, TSH, PREGQNT #### [facility] [address] [place] [address] Woody Yulissa Creatinine [Mass/Vol] 0.53 mg/dL Normal 0.52-1.04 [facility] Comment on above: Performed By: #### C MP, TSH, PREGQNT #### [facility] [address] [place] [address] Wooyd Yulissa EGFR-AF [facility] LUCIAN >60 Normal >=60 [facility] Comment on above: Performed By: #### C MP, TSH, PREGQNT #### [facility] [address] [place] [address] Woody Yulissa EGFR-NON AF [facility] LUCI[facility] >60 Normal >=60 [facility] Comment on above: Performed By: #### C MP, TSH, PREGQNT #### [facility] [address] [id number] Woody Yulissa Globulin (S) [Mass/Vol] 3.9 g/dL Normal [facility] Comment on above: Performed By: #### C MP, TSH, PREGQNT #### [facility] [address] [address] Woody Yulissa Glucose [Mass/Vol] 99 mg/dL Normal 74-106 [facility] Comment on above: Performed By: #### C MP, TSH, PREGQNT #### [facility] [address] [place] [address] Woody Yulissa Potassium [Moles/Vol] 4.0 mmol/L Normal 3.4-5.0 [facility] Comment on above: Performed By: #### C MP, TSH, PREGQNT #### [facility] [address] [place] [address] Woody Yulissa Protein [Mass/Vol] 6.7 g/dL Normal 6.1-8.2 [facility] Comment on above: Performed By: #### C MP, TSH, PREGQNT #### [facility] [address] [place] [address] Woody Yulissa Sodium [Moles/Vol] 140 mmol/L Normal 137-145 [facility] Comment on above: Performed By: #### C MP, TSH, PREGQNT #### [facility] [address] [place] [address] Woody Yulissa Urea nitrogen [Mass/Vol] 10.0 mg/dL Normal 7.0-17.0 [facility] Comment on above: Performed By: #### C MP, TSH, PREGQNT #### [facility] [address] [place] [address] Woody Yulissa Urea nitrogen/Creatinine [Mass ratio] 18.9 mg/mg Normal [facility] Comment on above: Performed By: #### C MP, TSH, PREGQNT #### [facility] [address] [place], [place] [address] Woody Duenas TSHon 12-23-2020 TSH 1.598 uIU/mL Normal 0.470-4.680 [facility] Comment on above: Performed By: #### C MP, TSH, PREGQNT #### [facility] [address] [place], [place] [address] Woody Duenas TSH RANGE SEE BELOW Normal [facility] Comment on above: Result Comment: <0.3 4 UIU/ml HYPERTHYROID 0.34-5.60 UIU/ml EUTHYROID >5.60 UIU/ml HYPOTHYROID Performed By: #### C MP, TSH, PREGQNT #### [facility] [address] [address] Woody Duenas VITAMIN B12on 12-23-2020 Cobalamin (Vitamin B12) [Mass/Vol] 538.0 pg/mL Normal 239.0-931.0 [facility] Comment on above: Performed By: #### V ITB12 ####[facility] [address] [id number] Duenas MR OUTSIDE CD DICOM IMPORT - NBNRon 12-07-2020 MR OUTSIDE CD DICOM IMPORT -NBNR Images were obtained outside of [facility] [id number] Normal [facility] SARS-CoV2 ANTIBODIES (IgM, I gG, IgA)on 11-14-2020 SARS-CoV-2 (COVID-19) RNA ROXANA+probe Ql (Unsp spec) Negative Normal Negative [facility] Comment on above: Result Comment: This sample does not contain detectable SARS-CoV-2 antibodies. This negative result does not rule out SARS-CoV-2 infection. Correlation with epidemiologic risk factors and other clinical and laboratory findings is recommended. Serologic results should not be used as the sole basis to diagnose or exclude recent SARS-CoV-2 infection. Performed By: #### C VDABS ####[facility] [address] [id number] Duenas Covid[facility]19 PCR ([facility]on 10-10 EUA Statement SEE BELOW Normal [facility] Comment on above: Result Comment: This test is not yet approved or cleared by the [place] FDA. When there are no FDA-approved or cleared tests available, and other criteria are met, FDA can make tests available under an emergency access mechanism called an Emergency Use Authorization (EUA). The EUA for this test is supported by the [employer] of Health and Human Service?s (HHS?s) declaration [...] consistent with SARS-CoV-2. Performed By: #### C [facility] ####[facility] [address] [place] [address] SARS-CoV-2 (COVID-19) RNA ROXANA+probe Ql (Unsp spec) Not detected Normal NOT DETECTED [facility] Comment on above: Result Comment: This test is not yet approved or cleared by the [place] FDA. When there are no FDA-approved or cleared tests available, and other criteria are met, FDA can make tests available under an emergency access mechanism called an Emergency Use Authorization (EUA). The EUA for this test is supported by the [place] of Health and Human Service's (HHS's) declaration [...] longer be used). Performed By: #### [facility] ####[facility] [address] [place] [address] MRI KNEE RT WO CONon 020 MRI [...] DIANA MONROY Date: 2020-09-11 14:09 Normal [facility] Cult,Bloodon 11-05-2017 Cult,Blood Specimen Description .BLOOD Special Requests R ARM 6 ML Culture NO GROWTH 6 DAYS Report Status FINAL 11/05/2017 [facility] Comment on above: Performed By: #### B C ####[facility] [address] [place] [address] [id number] Cult,Blood Specimen Description .BLOOD Special Requests LT HAND 5ML Culture NO GROWTH 6 DAYS Report Status FINAL 11/05/2017 [facility] Comment on above: Performed By: #### B C ####[facility] [place] [address] [id number] Cult,Bloodon 11-04-2017 Cult,Blood Specimen Description .BLOOD Special Requests LT AC 7 ML Culture NO GROWTH 6 DAYS Report Status FINAL 11/04/2017 [facility] Comment on above: Performed By: #### B C ####[facility] [place] [address] [id number] Cult,Bloodon 11-01-2017 Cult,Blood Specimen Description .BLOODSpecial Requests RT F ARM 7 MLCulture POSITIVE BLOOD CULTURE, RN NOTIFIED: CATARINO Dunlap AT 0810 ON 10/30/17 DIRECT GRAM STAIN FROM BOTTLE: GRAM POSITIVE COCCI IN CHAINS AND PAIRS PNAFISH negative. Culture results to follow. VIRIDANS STREPTOCOCCUS GROUP SEVERAL MORPHOTYPES Report Status FINAL 11/01/2017 [facility] Comment on above: Performed By: #### B C ####[place] [id number] Cult,Urine,CCon 10-31-2017 Cult,Urine,CC Specimen Description .CLEAN CATCH URINESpecial Requests NOT REPORTEDCulture GROUP D ENTEROCOCCUS 10 to 50,000 CFU/MLReport Status FINAL 10/30/2017SUSCEPTIBILITYO rganism EGDMethod MICAmpicillin <=2 SUSCEPTIBLEPenicillin NOT REPORTEDCiprofloxacin 1 SUSCEPTIBLEErythromycin NOT REPORTEDGentamicin,High Level NOT REPORTEDLevofloxacin 1 SUSCEPTIBLELinezolid NOT REPORTEDNitrofurantoin <=16 SUSCEPTIBLESynercid NOT REPORTEDStreptomycin,Hi Level NOT REPORTEDTetracycline <=1 SUSCEPTIBLETigecycline NOT REPORTEDVancomycin 1 SUSCEPTIBLE [facility] Comment on above: Performed By: #### C JASS ####[place] [id number] Progress Noteon 10-30-2017 HIM IP Note OR [employer] Normal [facility] Basic Metabolic Profon 10-29 (cont.) Normal [facility] Comment on above: Result Comment: Aver age GFR for 30-39 years old: 107 mL/min/1.73sq mChronic Kidney Disease: <60 mL/min/1.73sq mKidney failure: <15 mL/min/1.73sq meGFR calculated using average adult body mass. Additional eGFR calculator available at:[email or web address] ([phone] Performed By: #### C DP, BMP ####[address] [place] [address] Anion gap 12 mmol/L Normal 9-17 [facility] Comment on above: Performed By: #### C DP, BMP ####[facility] [place] [address] Calcium 7.6 mg/dL Low 8.6-10.4 [facility] Comment on above: Performed By: #### C DP, BMP ####[address] [address] Chloride 104 mmol/L Normal 98-107 [facility] Comment on above: Performed By: #### C DP, BMP ####[address] [address] CO2 24 mmol/L Normal 20-31 [facility] Comment on above: Performed By: #### C DP, BMP ####[address] [address] Creatinine 0.37 mg/dL Low 0.50-0.90 [facility] Comment on above: Performed By: #### C DP, BMP ####[id number] [place] [address] eGFR (non-black) mL/min/{1.73_m2} Normal >60 [facility] Comment on above: Performed By: #### C DP, BMP ####[facility] [address] [place] [address] Glucose mass conc 90 mg/dL Normal 70-99 [facility] Comment on above: Performed By: #### C DP, BMP ####[id number] [place] [address] Potassium molar conc 4.0 mmol/L Normal 3.7-5.3 [facility] Comment on above: Performed By: #### C DP, BMP ####[facility] [address]qjd[address]67 [place] [address] Sodium 140 mmol/L Normal 135-144 [facility] Comment on above: Performed By: #### C DP, BMP ####[facility] [address] [place] [address] Urea nitrogen 8 mg/dL Normal 6-20 [facility] Comment on above: Performed By: #### C DP, BMP ####[address] [address] BUN/CRE Ratio NOT REPORTED Normal - [facility] Comment on above: Performed By: #### C DP, BMP ####[address] [address] Staging: NOT REPORTED Normal [facility] Comment on above: Performed By: #### C DP, BMP ####[address] [address] CBC with Diffon 10-29-2017 Abs. Basophil 0.03 k/uL Normal 0.00-0.20 [facility] Comment on above: Performed By: #### C DP, BMP ####[address] [address] Abs.Neutrophil (Seg) 3.73 k/uL Normal 1.50-8.10 [facility] Comment on above: Performed By: #### C DP, BMP ####[address] [address] Basophils/100 WBC Auto (Bld) 1 % Normal 0-2 [facility] Comment on above: Performed By: #### C DP, BMP ####[address] [address] Eosinophils 0.19 10*3/uL Normal 0.00-0.44 [facility] Comment on above: Performed By: #### C DP, BMP ####[address] [address] Eosinophils/100 leukocytes 3 % Normal 1-4 [facility] Comment on above: Performed By: #### C DP, BMP ####[address] [address] Erythrocyte distribution width Auto Ratio (RBC) 13.1 % Normal 11.8-14.4 [facility] Comment on above: Performed By: #### C DP, BMP ####[address] [address] Erythrocytes (RBC) 3.84 10*6/uL Low 3.95-5.11 [facility] Comment on above: Performed By: #### C DP, BMP ####[address] [address] Granulocytes/100 WBC (Bld) % Normal 0.00-0.30 [facility] Comment on above: Result Comment: [id number] [place] [address] Performed By: #### C DP, BMP ####[address] [address] Hematocrit (HCT) 34.9 % Low 36.3-47.1 [facility] Comment on above: Performed By: #### C DP, BMP ####[address] [address] Hemoglobin mass conc (Bld) 10.6 g/dL Low 11.9-15.1 [facility] Comment on above: Performed By: #### C DP, BMP ####[address] [address] Immature granulocytes #/vol (Bld) 0 % Normal 0 [facility] Comment on above: Performed By: #### C DP, BMP ####[facility] [place] [address] Lymphocytes 1.70 10*3/uL Normal 1.10-3.70 [facility] Comment on above: Performed By: #### C DP, BMP ####[address] [place] [address] Lymphocytes/100 leukocytes 28 % Normal 24-43 [facility] Comment on above: Performed By: #### C DP, BMP ####[address] [address] MCH 27.6 pg Normal 25.2-33.5 [facility] Comment on above: Performed By: #### C DP, BMP ####[address] [address] MCHC mass conc (RBC) 30.4 g/dL Normal 28.4-34.8 [facility] Comment on above: Performed By: #### C DP, BMP ####[address] [address] MCV 90.9 fL Normal 82.6-102.9 [facility] Comment on above: Performed By: #### C DP, BMP ####[address] [address] Monocytes 0.36 10*3/uL Normal 0.10-1.20 [facility] Comment on above: Performed By: #### C DP, BMP ####[address] [address] Monocytes/100 leukocytes 6 % Normal 3-12 [facility] Comment on above: Performed By: #### C DP, BMP ####[address] [address] Neutrophil (Seg) 62 % Normal 36-65 [facility] Comment on above: Performed By: #### C DP, BMP ####[address] [address] Platelet mean volume (PMV) 9.9 fL Normal 8.1-13.5 [facility] Comment on above: Performed By: #### C DP, BMP ####[address] [address] Platelets 347 10*3/uL Normal 138-453 [facility] Comment on above: Performed By: #### C DP, BMP ####[address] [address] WBC (Leukocytes) 6.0 10*3/uL Normal 3.5-11.3 [facility] Comment on above: Performed By: #### C DP, BMP ####[address] [address] Auto Diff Performed NOT REPORTED Normal [facility] Comment on above: Performed By: #### C DP, BMP ####[address] [address] Erythrocyte morphology NOT REPORTED Normal [facility] Comment on above: Performed By: #### C DP, BMP ####[address] [address] Platelets NOT REPORTED Normal [facility] Comment on above: Performed By: #### C DP, BMP ####[address] [address] WBC Morphology NOT REPORTED Normal [facility] Comment on above: Performed By: #### C DP, BMP ####[address] [address] Discharge Summaryon 10-29-20 17 HIM IP Note OR Snow Sho[employer]er Normal [facility] History and Physicalon 10-29 HIM IP Note OR Snow Sho[employer]er Normal [facility] UA w/Reflex Cultureon 2016 Bilirubin (direct) Negative Abnormal NEG [facility] Comment on above: Performed By: #### U AX UMICAO ####[facility] [address] [place] [address] Comment Culture ordered base d on defined criteria. Normal [facility] Comment on above: Result Comment: [facility] [facility] [place] [address] Performed By: #### U AX UMICAO ####[facility] [address] [place] [address] Acetaminophen mass conc LARGE Abnormal NEG [facility] Comment on above: Performed By: #### U AX UMICAO ####[address] [place] [address] Hemoglobin mass conc (Bld) Negative Normal NEG [facility] Comment on above: Performed By: #### U AX UMICAO ####[facility] [address] [place] [address] Nitrite,Ur Positive Abnormal NEG [facility] Comment on above: Performed By: #### U AX, UMICAO ####[facility] [address] [place] [address] Turbidity CLOUDY Abnormal CLEAR [facility] Comment on above: Performed By: #### U AX, UMICAO ####[facility] [address] [place] [address] Urine, color DARK YELLOW Abnormal YEL [facility] Comment on above: Performed By: #### U AX, UMICAO ####[facility] [address] [place] [address] Urine, glucose presence Negative Normal NEG [facility] Comment on above: Performed By: #### U AX, UMICAO ####[address] [place] [address] Urine, leukocyte esterase presence TRACE Abnormal NEG [facility] Comment on above: Performed By: #### U AXKEHINDEO ####[address] [place] [address] Urine, pH 6.5 [pH] Normal 5.0-8.0 [facility] Comment on above: Performed By: #### U AXKEHINDEO ####[facility] [address] [place] [address] Urine, protein presence 3+ Abnormal NEG [facility] Comment on above: Performed By: #### U AXCORBIN ####[facility] [address] [place] [address] Urine, specific gravity 1.023 Normal 1.005-1.030 [facility] Comment on above: Performed By: #### U AXCORBIN ####[facility] [address] [place] [address] Urobilinogen,Ur Normal Normal NORM [facility] Comment on above: Performed By: #### U AXKEHINDEO ####[facility] [address] [place] [address] Urinalysis,Microon 12-20-201 7 Urine, crystals in sediment FEW Abnormal NONE [facility] Comment on above: Result Comment: URIC ACID Performed By: #### U AXKEHINDEO ####[address] [address] Urine, yeast presence in sediment FEW Abnormal NONE [facility] Comment on above: Result Comment: [address] [address] Performed By: #### U AX UMICAO ####[address] [address] ----- Normal [facility] Comment on above: Performed By: #### U AX, UMICAO ####[address] [address] Urine WBC's 2 TO 5 Normal 0-5 [facility] Comment on above: Performed By: #### U AX UMICAO ####[address] [address] Urine, epithelial cells in sediment 10 TO 20 Normal 0-5 [facility] Comment on above: Performed By: #### U AX UMICAO ####[address] [address] Urine, erythrocytes 0 TO 2 Normal 0-4 [facility] Comment on above: Result Comment: Refe rence range defined for non-centrifuged specimen. Performed By: #### U AX UMICAO ####[address] [address] Epithelial, Renal NOT REPORTED Normal 0 [facility] Comment on above: Performed By: #### U AX UMICAO ####[address] [address] Mucus Strands NOT REPORTED Normal NONE [facility] Comment on above: Performed By: #### U AX, UMICAO ####[address] [address] Other Observations NOT REPORTED Normal NREQ [facility] Comment on above: Performed By: #### U AX UMICAO ####[address] [address] Trichomonas NOT REPORTED Normal NONE [facility] Comment on above: Performed By: #### U AX, UMICAO ####[address] [address] Urine, amorphous sediment presence in sediment NOT REPORTED Normal NONE [facility] Comment on above: Performed By: #### U AXCORBIN ####[facility] [address] [place] [address] Urine, bacteria in sediment NOT REPORTED Normal NONE [facility] Comment on above: Performed By: #### U AXKEHINDEO ####[address] [place] [address] Urine, casts in sediment NOT REPORTED Normal 0-8 [facility] Comment on above: Performed By: #### U AXCORBIN ####[address] [address] Basic Metabolic Profon 10-28 (cont.) Normal [facility] Comment on above: Result Comment: Aver age GFR for 30-39 years old: 107 mL/min/1.73sq mChronic Kidney Disease: <60 mL/min/1.73sq mKidney failure: <15 mL/min/1.73sq meGFR calculated using average adult body mass. Additional eGFR calculator available at:[email or web address] Hospital [facility] [address] [place] [address] Performed By: #### C DP, BMP ####[facility] [place] [address] Anion gap 12 mmol/L Normal 9-17 [facility] Comment on above: Performed By: #### C DP, BMP ####[facility] [place] [address] Calcium 8.4 mg/dL Low 8.6-10.4 [facility] Comment on above: Performed By: #### C DP, BMP ####[facility] [place] [address] Chloride 98 mmol/L Normal 98-107 [facility] Comment on above: Performed By: #### C DP, BMP ####[facility] [place] [address] CO2 27 mmol/L Normal 20-31 [facility] Comment on above: Performed By: #### C DP, BMP ####[facility] [place] [address] Creatinine 0.44 mg/dL Low 0.50-0.90 [facility] Comment on above: Performed By: #### C DP, BMP ####[address] [address] eGFR (non-black) mL/min/{1.73_m2} Normal >60 [facility] Comment on above: Performed By: #### C DP, BMP ####[address] [address] Glucose mass conc 108 mg/dL High 70-99 [facility] Comment on above: Performed By: #### C DP, BMP ####[address] [address] Potassium molar conc 3.5 mmol/L Low 3.7-5.3 [facility] Comment on above: Performed By: #### C DP, BMP ####[address] [address] Sodium 137 mmol/L Normal 135-144 [facility] Comment on above: Performed By: #### C DP, BMP ####[address] [address] Urea nitrogen 10 mg/dL Normal 6-20 [facility] Comment on above: Performed By: #### C DP, BMP ####[facility] [place] [address] BUN/CRE Ratio NOT REPORTED Normal 9-20 [facility] Comment on above: Performed By: #### C DP, BMP ####[address] [address] Staging: NOT REPORTED Normal [facility] Comment on above: Performed By: #### C DP, BMP ####[address] [address] CBC with Diffon 10-28-2017 Abs. Basophil 0.03 k/uL Normal 0.00-0.20 [facility] Comment on above: Performed By: #### C DP, BMP ####[place] [address] Abs.Neutrophil (Seg) 5.25 k/uL Normal 1.50-8.10 [facility] Comment on above: Performed By: #### C DP, BMP ####[place] [address] Basophils/100 WBC Auto (Bld) 0 % Normal 0-2 [facility] Comment on above: Performed By: #### C DP, BMP ####[address] [address] Eosinophils 0.17 10*3/uL Normal 0.00-0.44 [facility] Comment on above: Performed By: #### C DP, BMP ####[address] [address] Eosinophils/100 leukocytes 2 % Normal 1-4 [facility] Comment on above: Performed By: #### C DP, BMP ####[address] [address] Erythrocyte distribution width Auto Ratio (RBC) 13.2 % Normal 11.8-14.4 [facility] Comment on above: Performed By: #### C DP, BMP ####[address] [address] Erythrocytes (RBC) 4.39 10*6/uL Normal 3.95-5.11 [facility] Comment on above: Performed By: #### C DP, BMP ####[address] [address] Granulocytes/100 WBC (Bld) 0.03 k/uL Normal 0.00-0.30 [facility] Comment on above: Result Comment: [address] [address] Performed By: #### C DP, BMP ####[address] [address] Hematocrit (HCT) 38.7 % Normal 36.3-47.1 [facility] Comment on above: Performed By: #### C DP, BMP ####[address] [address] Hemoglobin mass conc (Bld) 12.2 g/dL Normal 11.9-15.1 [facility] Comment on above: Performed By: #### C DP, BMP ####[address] [address] Immature granulocytes #/vol (Bld) 0 % Normal 0 [facility] Comment on above: Performed By: #### C DP, BMP ####[address] [address] Lymphocytes 1.71 10*3/uL Normal 1.10-3.70 [facility] Comment on above: Performed By: #### C DP, BMP ####[address] [address] Lymphocytes/100 leukocytes 22 % Low 24-43 [facility] Comment on above: Performed By: #### C DP, BMP ####[address] [address] MCH 27.8 pg Normal 25.2-33.5 [facility] Comment on above: Performed By: #### C DP, BMP ####[address] [place] [address] MCHC mass conc (RBC) 31.5 g/dL Normal 28.4-34.8 [facility] Comment on above: Performed By: #### C DP, BMP ####[facility] [address] [place] [address] MCV 88.2 fL Normal 82.6-102.9 [facility] Comment on above: Performed By: #### C DP, BMP ####[address] [place] [address] Monocytes 0.44 10*3/uL Normal 0.10-1.20 [facility] Comment on above: Performed By: #### C DP, BMP ####[address] [address] Monocytes/100 leukocytes 6 % Normal 3-12 [facility] Comment on above: Performed By: #### C DP, BMP ####[address] [place] [address] Neutrophil (Seg) 70 % High 36-65 [facility] Comment on above: Performed By: #### C DP, BMP ####[address] [place] [address] Platelet mean volume (PMV) 9.6 fL Normal 8.1-13.5 [facility] Comment on above: Performed By: #### C DP, BMP ####[address] [place] [address] Platelets 456 10*3/uL High 138-453 [facility] Comment on above: Performed By: #### C DP, BMP ####[address] [place] [address] WBC (Leukocytes) 7.6 10*3/uL Normal 3.5-11.3 [facility] Comment on above: Performed By: #### C DP, BMP ####[facility] [address] [place] [address] Auto Diff Performed NOT REPORTED Normal [facility] Comment on above: Performed By: #### C DP, BMP ####[facility] [address] [place] [address] Erythrocyte morphology NOT REPORTED Normal [facility] Comment on above: Performed By: #### C DP, BMP ####[address] [place] [address] Platelets NOT REPORTED Normal [facility] Comment on above: Performed By: #### C DP, BMP ####[address] [address] WBC Morphology NOT REPORTED Normal [facility] Comment on above: Performed By: #### C DP, BMP ####[address] [address] ED Noteon 10-28-2017 HIM IP Note OR Snow Shoveler Normal [facility] HIM IP Note OR Snow Shoveler Normal [facility] HIM IP Note OR Snow Shoveler Normal [facility] HIM IP Note OR Snow Shoveler Normal [facility] ED Provider Noteon 7 HIM IP Note OR Snow Shoveler Normal [facility] Vital Signs Date Time Vital Sign Value Performing Clinician Facility 02-11-2024 11:20-0400 Body height 157.48 cm [facility] 02-11-2024 11:20-0400 Body mass index (BMI) [Ratio] 25.6 kg/m2 [facility] 02-11-2024 11:20-0400 Body temperature 99.5 [degF] [facility] 02-11-2024 11:20-0400 Body weight 63.5 kg [facility] 02-11-2024 11:20-0400 Diastolic blood pressure 81 mm[Hg] [facility] 02-11-2024 11:20-0400 Heart rate 105 /min [facility] 02-11-2024 11:20-0400 Respiratory rate 18 /min [facility] 02-11-2024 11:20-0400 SaO2% (BldA) [Mass fraction] 98 % [facility] 02-11-2024 11:20-0400 Systolic blood pressure 128 mm[Hg] [facility] 12-25-2023 13:40-0500 Body height 157.5 cm Sammi Pranavkulwinderi [employer]ISTICS ACCOUNT MANAGER Work Phone: [facility] 12-25-2023 13:40-0500 Body mass index (BMI) [Ratio] 25.61 kg/m2 Sammi Rockiani LOGISTICS ACCOUNT MANAGER Work Phone: [facility] 12-25-2023 13:40-0500 Body weight 63.5 kg Sammi Rockiani LOGISTICS ACCOUNT MANAGER Work Phone: [facility] 12-25-2023 13:40-0500 Diastolic blood pressure 82 mm[Hg] Sammi Pranaviani LOGISTICS ACCOUNT MANAGER Work Phone: [facility] 12-25-2023 13:40-0500 Systolic blood pressure 120 mm[Hg] Sammi Rockiani LOGISTICS ACCOUNT MANAGER Work Phone: [facility] 11-14-2023 16:30-0500 Body height 157.48 cm Luisa Mckeon Other [facility] 11-14-2023 16:30-0500 Body mass index (BMI) [Ratio] 26.01 kg/m2 Luisa Mckeon Other [employer] [facility] [employer] Other 11-14-2023 16:30-0500 Body temperature 98 [degF] Luisa Mckeon Other [employer] Other 11-14-2023 16:30-0500 Body weight 64.5 kg Luisa Mckeon Other [facility] 11-14-2023 16:30-0500 Respiratory rate 18 /min Luisa Mckeon Other [employer] Other 11-14-2023 16:30-0500 SaO2% (BldA) [Mass fraction] 97 % Luisa Mckeon Other [employer] Other 11-04-2023 15:00-0500 Body height 157.48 cm Yelitza Jones Other [employer] Other 11-04-2023 15:00-0500 Body mass index (BMI) [Ratio] 26.12 kg/m2 Yelitza Jones Other [employer] Other 11-04-2023 15:00-0500 Body temperature 99.3 [degF] Yelitza Jones Other [employer] Other 11-04-2023 15:00-0500 Body weight 64.77 kg Yelitza Jones Other [employer] Other 11-04-2023 15:00-0500 Diastolic blood pressure 84 mm[Hg] Yelitza Jones Other [employer] Other 11-04-2023 15:00-0500 Systolic blood pressure 117 mm[Hg] Yelitza Jones Other [employer] Other 10-09-2023 09:50-0500 Body height 157.48 cm Hilary Pierce Other [employer] Other 10-09-2023 09:50-0500 Body mass index (BMI) [Ratio] 27.43 kg/m2 Hilary Kari Other [employer] Other 10-09-2023 09:50-0500 Body temperature 98.1 [degF] Hilary Kari Other [employer] Other 10-09-2023 09:50-0500 Body weight 68.04 kg Hilary Kari Other [employer] Other 10-09-2023 09:50-0500 Respiratory rate 18 /min Hilary Kari Other [employer] Other 10-09-2023 09:50-0500 SaO2% (BldA) [Mass fraction] 99 % Hilary Kari Other [employer] Other 07-29-2023 09:45-0400 Body height 157.48 cm Yelitza Jones Other [employer] Other 07-29-2023 09:45-0400 Body mass index (BMI) [Ratio] 26.15 kg/m2 Yelitza Jones Other [employer] Other 07-29-2023 09:45-0400 Body temperature 98.2 [degF] Yelitza Jones Other [employer] Other 07-29-2023 09:45-0400 Body weight 64.86 kg Yelitza Jones Other [employer] Other 07-29-2023 09:45-0400 Diastolic blood pressure 87 mm[Hg] Yelitza Jones Other [employer] Other 07-29-2023 09:45-0400 Systolic blood pressure 124 mm[Hg] Yelitza Jones Other [employer] Other 03-10-2023 10:30-0400 Body height 157.48 cm Yelitza Jones Other [employer] Other 03-10-2023 10:30-0400 Body mass index (BMI) [Ratio] 28.16 kg/m2 Yelitza Jones Other [employer] Other 03-10-2023 10:30-0400 Body temperature 97.6 [degF] Yelitza Jones Other [employer] Other 03-10-2023 10:30-0400 Body weight 69.85 kg Yelitza Jones Other [employer] Other 03-10-2023 10:30-0400 Diastolic blood pressure 78 mm[Hg] Yelitza Jones Other [employer] Other 03-10-2023 10:30-0400 SaO2% (BldA) [Mass fraction] 99 % Yelitza Jones Other [employer] Other 03-10-2023 10:30-0400 Systolic blood pressure 118 mm[Hg] Yelitza Jones Other [employer] Other Encounters Encounter Date Encounter Type Care Provider Facility Start: 04-01-2024 End: 04-01-2024 ambulatory SAMMI ESTRADA Not Available Start: 03-10-2024 End: 03-10-2024 ambulatory Efrain Jean Baptiste Facility:[facility] Start: 03-04-2024 End: 03-04-2024 ambulatory Umberto Dia Facility:[facility] Start: 03-04-2024 End: 03-04-2024 ambulatory MD Umberto Dia Work Phone: [facility] Work Phone: Start: 03-04-2024 End: 03-04-2024 Departed Referred MD Umberto Dia Work Phone: [facility] Start: 02-11-2024 End: 02-11-2024 ambulatory [facility] Work Phone: Start: 02-11-2024 End: 02-11-2024 Patient encounter procedure [facility] Work Phone: Start: 02-02-2024 Non-patient / Non-visit [facility] [employer] Work Phone: Start: 01-01-2024 End: 01-01-2024 ambulatory EFRAIN JEAN BAPTISTE Not Available Start: 12-29-2023 End: 12-29-2023 ambulatory CLINT CESPEDES Not Available Start: 12-25-2023 End: 12-25-2023 ambulatory SAMMI ESTRADA Not Available Start: 12-25-2023 Bamboo flowsheet Sammi Estrada LOGISTICS ACCOUNT MANAGER Work Phone: [facility] Start: 12-25-2023 Bamboo flowsheet Sammi Estrada [employer]ISTICS ACCOUNT MANAGER Work Phone: [facility] Start: 12-25-2023 End: 12-25-2023 Patient encounter procedure Sammi Estrada LOGISTICS ACCOUNT MANAGER Work Phone: [facility] Comment on above: Intractable chronic migraine without aura and without status migrainosus (CMS/HCC) (Primary Dx); ADD (attention deficit disorder) without hyperactivity Start: 11-14-2023 End: 11-14-2023 ambulatory Luisa Mckeon Other [facility] [employer] Other Start: 11-14-2023 Office outpatient vi sit 15 minutes Luisa Mckeon [facility] Start: 11-14-2023 Telephone encounter Yelitza Jones [facility] Start: 11-14-2023 End: 11-14-2023 Patient encounter procedure [facility] Work Phone: Start: 11-04-2023 End: 11-04-2023 ambulatory Yelitza Jones Other [employer] Other Start: 11-04-2023 Office outpatient vi sit 15 minutes Yelitza Jones [facility] Start: 10-30-2023 End: 10-30-2023 ambulatory EFRAIN JEAN BAPTISTE Not Available Start: 10-14-2023 End: 10-14-2023 ambulatory Yelitza Jones Other [employer] Other Start: 10-14-2023 Telephone encounter Yelitza Jones [facility] Start: 10-09-2023 End: 10-09-2023 ambulatory Hilary Kari Other [employer] Other Start: 10-09-2023 Office outpatient vi sit 15 minutes Hilaryligia Pierce [facility] Start: 07-29-2023 End: 07-29-2023 ambulatory Yelitza Jones Other [employer] Other Start: 07-29-2023 Encounter for genera l adult medical examination without abnormal findings Yelitza Jones [facility] Start: 07-29-2023 Office outpatient vi sit 15 minutes Yelitza Jones [facility] [facility] Start: 07-16-2023 End: 07-16-2023 ambulatory Yelitza Jones Other [employer] Other Start: 07-16-2023 Telephone encounter Yelitza Karen [facility] Start: 05-20-2023 End: 05-20-2023 ambulatory Yelitza Jones Other [employer] Other Start: 05-20-2023 Telephone encounter Yelitza Jones [facility] Start: 03-10-2023 End: 03-10-2023 ambulatory Yelitza Jones Other [employer] Other Start: 03-10-2023 Office outpatient vi sit 15 minutes Yelitza Jones [facility] Start: 12-16-2022 End: 12-16-2022 ambulatory Yelitza Jones Other [employer] Other Start: 12-16-2022 Telephone encounter Yelitza Jones [facility] Start: 12-12-2022 (Televisit) Televisit Yelitza Jones [facility] Start: 12-12-2022 End: 12-12-2022 ambulatory Yelitza Jones Other [employer] Other Start: 09-12-2022 End: 09-12-2022 ambulatory MD Yelitza Jones Work Phone: [facility] Work Phone: Start: 09-12-2022 End: 09-12-2022 Patient encounter procedure MD Yelitza Jones Work Phone: [facility] [place] Start: 07-23-2022 Adult health examination Kolby Jones Other [employer] Other Start: 08-18-2021 Encounter for genera l adult medical examination without abnormal findings [facility] Start: 08-14-2021 End: 08-15-2021 ambulatory [facility] Facility:H1 Start: 08-14-2021 End: 08-15-2021 Encounter for general adult medical examination without abnormal findings [facility] Facility:H1 Start: 08-01-[address] YELITZA JONES [facility] ity:H1 Start: 07-05-2021 End: 07-06-[address] YELITZA JONES Facility:H1 Start: 06-12-2021 End: 06-13-[address] YELITZA JONES Facility:H1 Start: 05-22-2021 End: 05-23-[address] UMBERTO DIA Facility:H1 Start: 05-18-2021 End: 05-19-[address] DOCTOR DUQUE Facility:H1 Start: 05-07-2021 End: 05-07-[address] YELITZA JONES Facility:H1 Start: 03-23-2021 End: 03-24-[address] YELITZA JONES Facility:H1 Start: 02-16-2021 End: 02-17-[address] YELITZA JONES Facility:H1 Start: 12-23-2020 End: 12-24-[address] DOCTOR DUQUE Facility:H1 Start: 11-16-2020 Encounter for antibo dy response examination DR YELITZA JONES [facility] Start: 11-13-2020 End: 11-14-[address] YELITZA JONES Facility:H1 Start: 11-13-2020 End: 11-14-2020 Encounter for antibody response examination DR YELITZA JONES Facility:H1 Start: 10-21-2020 End: 10-22-[address] YELITZA JONES Facility:H1 Start: 09-11-2020 End: 09-12-2020 ambulatory TERRI CURRY Facility:H1 Start: 10-28-2017 End: 10-30-2017 Ambulatory YELITZA JONES [facility] Procedures Date Procedure Procedure Detail Performing Clinician Start: 02-11-2024 Quick Strep (POC) Start: 10-30-2017 DISCHARGE PATIENT KOLBY A KAREN Start: 10-30-2017 CULTURE BLOOD #1 YELITZA JONES Start: 10-30-2017 INITIATE OXYGEN THER APY PROTOCOL YELITZA JONES Start: 10-30-2017 INTAKE AND OUTPUT KOLBY A KAREN Start: 10-29-2017 CULTURE BLOOD #1 YELITZA JONES Start: 10-29-2017 DIET GENERAL YELITZA MILLER UN Start: 10-29-2017 INITIATE OXYGEN THER APY PROTOCOL YELITZA JONES Start: 10-29-2017 BASIC METABOLIC PANEL M USHA JONES Start: 10-29-2017 CBC WITH AUTO DIFFERENTIAL YELITZA JONES Start: 10-29-2017 INTAKE AND OUTPUT KOLBY A KAREN Start: 10-29-2017 Microscopic urinalysis YELITZA JONES Start: 10-29-2017 UA W/REFLEX CULTURE MAR GENNY JONES Start: 10-29-2017 URINE CULTURE CLEAN CATCH YELITZA JONES Start: 10-29-2017 TELEMETRY MONITORING MA SILVER JONES Start: 10-28-2017 ADVANCE DIET TOLE RATED (NURSING COMMUNICATION) YELITZA JONES Start: 10-28-2017 FULL CODE YELITZA BRA UN Start: 10-28-2017 INITIATE OXYGEN THER APY PROTOCOL YELITZA JONES Start: 10-28-2017 INTAKE AND OUTPUT KOLBY JONES Start: 10-28-2017 REASON FOR NO MECHAN ICAL VTE PROPHYLAXIS YELITZA JONES Start: 10-28-2017 VITAL SIGNS YELITZA MILLER UN Start: 10-28-2017 PATIENT STATUS (FROM ED OR OR/PROCEDURAL) YELITZA JONES Start: 10-28-2017 TRANSFER PATIENT YELITZA JONES Start: 10-28-2017 IP CONSULT TO MRI SPECIALIST DENIS SILVER JONES Start: 10-28-2017 BASIC METABOLIC PANEL Melva JONES Start: 10-28-2017 CBC WITH AUTO DIFFERENTIAL YELITZA JONES Start: 10-28-2017 INSERT PERIPHERAL IV MA SILVER JONES Start: 07-01-2013 General examination of patient Yelitza Jones Other Hyperlipidemia screening Demetra Jones Other Plan of Treatment Date Care Activity Detail Author Start: 07-26-2024 Influenza vaccination Influenza Vacc ine (#1) [facility] Comment on above: Postponed from 07/11 (Patient Refused) Start: 04-01-2024 End: 04-01-2024 Patient encounter procedure 04/01/2024 1:00 PM EDT Procedure Visit [facility] [address] [place] [address] Sammi Estrada LOGISTICS ACCOUNT MANAGER [address] [facility] [address] Montaño [address] [place] [id number] [facility] Start: 01-01-2024 End: 01-01-2024 Patient encounter procedure 01/01/2024 10:30 AM EST Office Visit [facility] [address] [place] [phone] Efrain Jean Baptiste MD [address] [facility] [address] Montaño [address] [place] [id number] [facility] Start: 12-29-2023 End: 12-29-2023 Clinical Support 12/29/2023 1:00 PM EST Clinical Support [facility] [address] [place] [address] [facility] Start: 2023 Screening for malign ant neoplasm of breast Mammogram [facility] Start: 07-11-2023 Influenza vaccination Influenza Vacc ine (#1) [facility] Start: 09-12-2022 MR Unspecified body region [facility] Start: 09-12-2022 MRI of head MR head/brain wo/w con [facility] Start: 2013 Screening for malign ant neoplasm of cervix [facility] Start: 2004 Screening for malign ant neoplasm of cervix Pap Smear [facility] Immunizations Immunization Date Immunization Notes Care Provider Fa rufina 08-10-2020 influenza virus vaccine, split virus (incl. purified surface antigen) Yelitza Jones Other [facility] [employer] Other 08-10-2020 influenza virus vaccine, unspecified formulation [facility] 08-09-2020 influenza, seasonal, injectable, preservative free Sammi Estrada LOGISTICS ACCOUNT MANAGER Work Phone: [facility] 08-09-2020 influenza virus vaccine, unspecified formulation Sammi Graziani LOGISTICS ACCOUNT MANAGER Work Phone: [facility] 05-17-2019 pneumococcal polysaccharide vaccine, 23 valent Sammi Rockiani LOGISTICS ACCOUNT MANAGER Work Phone: [facility] 03-10-2015 hepatitis B vaccine, adult dosage Sammi Graziani LOGISTICS ACCOUNT MANAGER Work Phone: [facility] 11-09-2014 hepatitis B vaccine, adult dosage Sammi Graziani LOGISTICS ACCOUNT MANAGER Work Phone: [facility] 09-02-2014 hepatitis B vaccine, adult dosage Sammi Graziani LOGISTICS ACCOUNT MANAGER Work Phone: [facility] 09-02-2014 tetanus toxoid, redu sonia diphtheria toxoid, and acellular pertussis vaccine, adsorbed Sammi Graziani LOGISTICS ACCOUNT MANAGER Work Phone: [facility] Payers Date Payer Category Payer Self-pay [id number] 2022 [employer] Blue Shield [id number] HE[employer] PLUS [id number] 2022-Present [address] [place] [address] [id number] 1983 Unknown [id number] 2.16.840.1.361940.3.579.2. 593 1983 Unknown [id number] 2.16.840.1.229958.3.579.2. 593 1983 Unknown [id number] 2.16.840.1.721607.3.579.2. 593 1983 Unknown [id number] 2.16.840.1.503381.3.579.2. 593 1983 Unknown [id number] 2.16.840.1.782837.3.579.2. 593 1983 Unknown [id number] 2.16.840.1.680329.3.579.2. 593 1983 Unknown [id number] 2.16.840.1.421212.3.579.2. 593 1983 Unknown [id number] 2.16.840.1.083268.3.579.2. 593 1983 Unknown [id number] 2.16.840.1.417862.3.579.2. 593 1983 Unknown [id number] 2.16.840.1.604758.3.579.2. 593 1983 Unknown [id number] 2.16.840.1.549019.3.579.2. 593 1983 Unknown [id number] 2.16.840.1.355754.3.579.2. 593 1983 Unknown [id number] 2.16.840.1.292806.3.579.2. 593 1983 Unknown [id number] 2.16.840.1.852703.3.579.2. 1259 1983 Unknown [id number] 2.16.840.1.825209.3.579.2. 1259 1983 Unknown [id number] 2.16.840.1.143241.3.579.2. 1259 1983 Unknown [id number] 2.16.840.1.522265.3.579.2. 1259 1983 Unknown [id number] 2.16.840.1.609566.3.579.2. 1259 1959 Private Health Insurance [id number] Unknown [id number] 2.16.840.1.960442.3.579.2. 593 Unknown [facility] [id number] Unknown [id number] 2.16.840.1.492222.19 Unknown [id number] 2.16.840.1.769197.3.579.2. 531 Unknown [id number] 2.16.840.1.734207.3.579.2. 531 Social History Date Type Detail Facility Tobacco smoking status MEIS Unknown if ever smoked [facility] Work Phone: Start: 1985 Sex Assigned At Female F [facility] Start: 10-30-2023 End: 12-25-2023 Sex Assigned At [facility] [employer] Other Start: 06-09-2023 End: 02-11-2024 Tobacco smoking status NHIS Never smoked tobacco [facility] Start: 06-09-2023 Tobacco use and exposure Smokeless tobacco non-user [facility] Start: 10-30-2023 End: 12-25-2023 Alcohol intake Current drinker of alcohol (finding) [facility] Start: 10-30-2023 End: 12-25-2023 Alcohol intake [facility] Start: 06-09-2023 Alcohol Comment Caffeine intak e: more than 4 cups per day coffee, soda [facility] Start: 09-04-2023 Gender identity Identifies as female gender (finding) [facility] Clinical Notes 12-12-2022 to 12-25-2023 Sammi Estrada NP - 12/25/2023 1:30 PM EST Note Date & Type Note Facility 12-25-2023 History of Presen t illness Narrative Subjective Celi Madrid is a 38 y.o. female. HPI [...] work. 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 She has to complete [...] meds lasted about 1 yr. Post-nasal drainage 2013 Proteinuria since 2011 Varicella zoster Past Surgical History: Procedure Laterality Date SECTION, LOW TRANSVERSE 2012 SECTION, LOW TRANSVERSE 12/16/2016 & tube removal HYSTERECTOMY 10/2017 [place] [facility] Procedure:Clomid 50 mg i daily;Disease:Infertility [...] she is yawning and can not focus. Casandra worked better but JUAN. I will send [...] with 70% isopropanol. Specialty pharmacy Lot # [id number] Dilution 200 units diluted into 4mL = 5 units per 0.1mL Procedure Procerus 5 units Worship Leader, L 5 units Worship Leader, R 5 units Frontalis, L 10 units [...] without status migrainosus - G43.719 Procedure Codes 01950 Chemodenervation Of Muscle Neck, Modifiers: 50 82867 Destroy Nerve, Face Muscle, Modifiers: 50 , 51 J0585 Botulinum toxin a per unit, Units: 200.00 A4209 SYRINGE W/NEEDLE STERILE 5 CC/GT EA A4206 1 CC sterile syringe&needle, Units: 4.00 A4216 Sterile water/saline, 10 ml Follow Up 2.5 months appointment; 3 months BTX documented in this encounter [facility] 11-14-2023 Evaluation note Encounter Date Diagnosis Assessment Notes Nov, Chest congestion (ICD-10 - R09.89) Nov, Influenza B (ICD-10 - J10.1) Influenza: adult home care material was printed Drink plenty fluids, get plenty of rest. Take Tylenol or Motrin for aches pains or fevers. Follow-up with your family physician if no improvement in 2 to 3 days [employer] Other 12-26-2023 Evaluation note* Encounter Date Diagnosis Assessment Notes Treatment Notes Treatment Clinical Notes Oct, Bronchitis (ICD-10 - J40) Take antibiotic as directed. If develop wheezing, chest tightness, itching, bad cough, blue skin color, seizures, swelling of face, lips, tongue, or throat report to ED. [employer] Other 11-30-2023 Evaluation note* Encounter Date Diagnosis [...] is infected. You are being prescribed a Z-alexy for your right ear infection due to [...] Acute right otitis media (ICD-10 - H66.91) [employer] Other 09-19-2023 Evaluation note* Encounter Date Diagnosis Assessment Notes Treatment Notes Treatment Clinical Notes Jul, Wellness examination (ICD-10 - Z00.00) Not a wellness exam, but requests wellness labs done for this year. Jul, Disorder of right eustachian tube (ICD-10 - H69.91) Advised finishing steroids. Trial of lower dose sudafed with flonase, which she has not started. No OM seen. Pt understands [employer] Other 09-06-2023 Evaluation note* Encounter Date Diagnosis Assessment Notes Treatment Notes Treatment Clinical Notes Jul, Pharyngitis, unspecified etiology (ICD-10 - J02.9) [employer] Other 05-01-2023 Evaluation note* Encounter Date Diagnosis [...] she easily has this problem on antibiotics. [employer] Other 02-06-2023 Evaluation note* Encounter Date Diagnosis Assessment Notes Treatment Notes Treatment Clinical Notes Dec, Acute non-recurrent maxillary sinusitis (ICD-10 - J01.00) [employer] Other 02-02-2023 Evaluation note* Encounter Date Diagnosis Assessment Notes Treatment Notes Treatment Clinical Notes Dec, Acute non-recurrent maxillary sinusitis (ICD-10 - J01.00) Testing for influenza as her negative COVID tests were not conclusive at home. Patient prefers to wait. Strongly suspect she has strep throat. Updated medication and allergy list in chart. Patient will call if her symptoms fail to improve [employer] Other Evaluation noteNo assessment information available [facility] Work Phone: Evaluation noteNo InformationNort [employer] Other Evaluation note* Diagnosis Intractable chronic migraine without aura and without status migrainosus ([facility])- Primary ADD (attention deficit disorder) without hyperactivity Attention deficit disorder without mention of hyperactivity [facility] Diagnosis Onset Date Resolution Status Right otitis media noneactiv e Sore throat noneactive [facility] Work Phone: History general Narrative - Reported* Type Description Date Medical History proteinuria Medical History CKD (chronic kidney disease) Medical History anxiety Medical History migraine headache Surgical History C section, x2 Surgical History bilateral salpingectomy 2016 Surgical History kidney biposy 02/2017 Surgical History hysterectomy Hospitalization History child Hospitalization History low k+ level 2003 [employer] Other History general [facility] - [facility] [employer] Other Summary Purpose Family History No Family History Records Found Relationship Condition Age at Onset Recorded Date/T mil Not Specified Diabetes mellitus Unknown Hypertension Unknown Advance Directives No Advanced Directives Records Found Advance Directive Response Recorded Date/ Time Advance Directives No November 28, 2020 1:52pm Advance Directive Response Recorded Date/ Time Advance Directives No February 10 11:11am Chief Complaint and Reason for Visit Chief Complaint g43.909 g37.9 Chief Complaint Sinus Congestion, Co ugh, Headache, Sore Amb Documentation Cough, congestion, ear pain Reason for Visit Right otitis media Sore throat Chief Complaint Amb Documentation Cough, congestion, ear pain Unknown Reason for Visit Right otitis media Sore throat Additional Source Comments INFORMATION SOURCE (unrecogn ized section and content) DATE CREATED AUTHOR 05/05/2018 [facility] DATE CREATED AUTHOR AUTHOR'S ORGANIZ ATION 02/13/2021 [facility] DATE CREATED AUTHOR AUTHOR'S ORGANIZ ATION 08/19/2021 [facility] DATE CREATED AUTHOR AUTHOR'S ORGANIZ ATION 12/03/2021 [facility] DATE CREATED AUTHOR AUTHOR'S ORGANIZ ATION 03/18/2024 [facility] DATE CREATED AUTHOR AUTHOR'S ORGANIZ ATION 04/03/2024 [facility] d[facility] Specialists [employer] Care Teams (unrecognized sec tion and content) Team Status: Inactive Member Role Status Dates Yelitza Jones MD Primary Care Provider Active Sammi Estrada APRN LOGISTICS ACCOUNT MANAGER-C Attending Provider A ctive Team Status: Active Member Role Status Dates Yelitza Jones MD Primary Care Provider Active Team Status: Inactive Member Role Status Dates PB Nava Attending Provider Active S tart: November 14, 2023 End: November 14, 2023 Team Status: Active Member Role Status Dates Yelitza Jones MD Primary Care Provider Active Start: February 02, 2024 Ana Hurley LPN Attending Provider Active S tart: February 02, 2024 Team Status: Inactive Member Role Status Dates Yelitza Jones MD Primary Care Provider Active Start: February 11, 2024 End: February 11, 2024 PB Nava Attending Provider Active S tart: February 11, 2024 End: February 11, 2024 Team Status: Inactive Member Role Status Dates Umberto Dia MD Attending Provider Active Start: March 04, 2024 End: March 04, 2024 Goals (unrecognized section and content) Goals may be documented in a n alternate sectionNo InformationNo InformationNo InformationNo InformationNo InformationNo InformationNo InformationNo InformationNo InformationNo InformationGoals may be documented in an alternate sectionGoals may be documented in an alternate section REASON FOR VISIT (unrecogniz ed section and content) Sore [phone] ageCOVID TEST NEGATIVE, SORE THROAT SETTLED IN [...] BE BASED ON THE PRIMARY CLINICAL RECORDS. [facility] [employer] [facility]. provides no warranty or guarantee of the accuracy or completeness of information in this document.
--- NOTE | 2024-05-02 19:32 | XR_ITS ---
[address] [address] Patient Name: CELI JOE MRN: [id number] date: 1985 Sex: F Assigned Patient Location: ER Current Patient Location: ER Accession/Order Number: [id number] Exam Date: 05/02/2024 21:01 Report Date: 05/02/2024 21:57 At the request of: ALYSSA GALE Procedure: XR knee RT 4V EXAM: XR knee RT 4V HISTORY: Unable to bear weight. pain COMPARISON: Right femur and tib-fib x-rays obtained the same day, dictated separately. TECHNIQUE: 4 view right knee. FINDINGS: No acute fracture, subluxation or dislocation. Joints are well-maintained. No joint effusion or dislocation. No narrowing. Normal soft tissues. No osseous lesion. Adequate bone mineralization. XR/XR knee RT 4V IMPRESSION: No acute bone or joint findings. Electronically authenticated by: LUCAS RUIZ Date: 05/02/2024 21:57
[2024-05-02 20:03] VITALS: BP 112/89
--- NOTE | 2024-05-02 20:26 | XR_ITS ---
[facility] [place] [id number] Patient Name: CELI JOE MRN: [facility]:[id number] date: 1985 Sex: F Assigned Patient Location: ER Current Patient Location: ER Accession/Order Number: [id number] Exam Date: 05/02/2024 21:01 Report Date: 05/02/2024 21:58 At the request of: ALYSSA GALE Procedure: XR femur RT 2V EXAM: XR femur RT 2V HISTORY: injury . Unable to their weight. COMPARISON: Right knee x-rays same day. TECHNIQUE: Frontal and lateral right femur x-rays. 4 films were reviewed. FINDINGS: No acute fracture, subluxation or dislocation. Joints are well-maintained. No joint effusion or dislocation. No narrowing. Normal soft tissues. No osseous lesion. Adequate bone mineralization. XR/XR femur RT 2V IMPRESSION: No acute bone or joint findings. Electronically authenticated by: LUCAS RUIZ Date: 05/02/2024 21:58
--- NOTE | 2024-05-02 20:26 | XR_ITS ---
[address] [address] Patient Name: CELI JOE MRN: [facility]:[id number] date: 1985 Sex: F Assigned Patient Location: ER Current Patient Location: ER Accession/Order Number: [id number] Exam Date: 05/02/2024 21:01 Report Date: 05/02/2024 21:59 At the request of: ALYSSA GALE Procedure: XR tibia fibula RT 2V EXAM: XR tibia fibula RT 2V HISTORY: injury . Unable to bear weight. COMPARISON: Right knee and femur x-rays same day, 05/02/2024, dictated separately. TECHNIQUE: Frontal and lateral right tib-fib radiographs. 2 frontal and 2 lateral views. FINDINGS: No acute fracture, subluxation or dislocation. Joints are well-maintained. No joint effusion or dislocation. No narrowing. Normal soft tissues. No osseous lesion. Adequate bone mineralization. XR/XR tibia fibula RT 2V IMPRESSION: No acute bone or joint findings. Electronically authenticated by: LUCAS RUIZ Date: 05/02/2024 21:59
--- NOTE | 2024-05-02 20:27 | ED.LOWEXI1 ---
HPI HPI - Extremity Injury (Lower) General Chief Complaint: Extremity Injury, Lower Stated Complaint: Lower Extremity Injury, Right Knee Time Seen by Provider: 05/02/24 20:20 Source: patient Mode of arrival: Wheelchair History of Present Illness HPI Narrative: states she was grilling in her garage because of the wind outside and felt very warm. walked into her home where it was immediately cool and next thing she knew she was on the ground. Not sure she passed out. Was carryng food and it was placed on the floor and not spilled. She injured her right knee. describes past meniscus injury same knee. Not sure if she struck it when she walked into the home or if the pain of the knee caused her to go down. States her kids did not feel she passed out. she now arrives complaining of right knee pain. denies other injury. States her right foot feels numb but not weak Related Data Home Medications ?Medication ?Instructions ?Recorded ?Confirmed dextroamphetamine-amphetamine 30 30 mg PO DAILY 02/24/24 03/04/24 mg tablet (Adderall) naltrexone 1 tab PO DAILY 02/24/24 03/04/24 sertraline 50 mg tablet 50 mg PO DAILY 02/24/24 03/04/24 Allergies Allergy/AdvReac Type Severity Reaction Status Date / Time amoxicillin AdvReac Intermediate Verified 03/04/24 15:24 NSAIDS (Non-Steroidal AdvReac Intermediate contraindicated Verified 03/04/24 15:24 Anti-Inflamma with renal disease Opioid HPI Opioid Management Most Recent Pain and Opioid Data: No Data to Display Review of Systems ROS Status of ROS 10 or more systems reviewed and unremarkable except as noted in history and below [facility] Medical History (Updated 05/02/24 @ 22:31 by Roverto De Guzman MD) Julius Dela Cruz infection ?B27.90 - Infectious mononucleosis, unspecified without complication (ICD-10) Multiple sclerosis ?G35 - Multiple sclerosis (ICD-10) RLS (restless legs syndrome) ?G25.81 - Restless legs syndrome (ICD-10) Anemia ?D64.9 - Anemia, unspecified (ICD-10) 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 ?N05.1 - 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 (ICD-10) Surgical History (Updated 03/04/24 @ 15:25 by Edith Atkinson) S/P breast biopsy, right ?Z98.890 - Other specified postprocedural states (ICD-10) S/P HAI (total abdominal hysterectomy) ?Z90.710 - Acquired absence of both cervix and uterus (ICD-10) Status post biopsy of kidney ?Z98.890 - Other specified postprocedural states (ICD-10) Delivery by section Social History Smoking status: Never smoker Exam Constitutional Vital Signs, click to edit/add: Last Vital Signs Temp 98.6 F 05/02/24 19:24 Pulse 85 05/02/24 19:24 Resp 16 05/02/24 19:24 BP 112/89 05/02/24 20:03 Pulse Ox 99 05/02/24 19:24 O2 Del Method Room Air 05/02/24 19:24 Common normals: no apparent distress, average body habitus, oriented x3, no limitations, healthy appearing, alert and well nourished HENWA Common normals: normocephalic and head/scalp atraumatic Eye Common normals: EOMs intact bilaterally and conjunctivae normal Respiratory Common normals: normal respiratory effort, no retractions, no use of accessory muscles and clear to auscultation bilaterally Cardio Common normals: regular rate, regular rhythm, S1 normal heart sound and S2 normal heart sound GI Common normals: Normal to inspection, nondistended, normoactive bowel sounds present, soft to palpation and non-tender Extremity Common normals: normal to inspection Other: no deformity of the knee. no swelling. mild tenderness. also tender distal femur and proximal tibia Neuro Common normals: oriented x3, CN's II-XII intact bilaterally, moves all extremities, no focal motor deficits and no sensory deficits noted Psych Appearance: grossly normal Course Vital Signs Vital signs: Vital Signs Temperature 98.6 F 05/02/24 19:24 Pulse Rate 85 05/02/24 19:24 Respiratory Rate 16 05/02/24 19:24 Blood Pressure 128/83 05/02/24 19:24 Pulse Oximetry 99 05/02/24 19:24 Oxygen Delivery Method Room Air 05/02/24 19:24 Temperature 98.6 F 05/02/24 19:24 Pulse Rate 85 05/02/24 19:24 Respiratory Rate 16 05/02/24 19:24 Blood Pressure 112/89 05/02/24 20:03 Pulse Oximetry 99 05/02/24 19:24 Oxygen Delivery Method Room Air 05/02/24 19:24 MDM - Extremity Injury (Lower) MDM Narrative Medical decision making narrative: presents from home after she fell walking into her home. She describes immediate pain of her knee. Believes she may have struck her knee while she was going down or either the knee was painful and she went down because of the pain. She was uncertain if she passed out. But states her family told her she did not pass out. Exam of knee without swelling or deformity. Xrays neg. Patient informed it could possibly her meniscus that caused the problem and that she should followup with ortho. Provided a knee immobilizer brace Imaging Data Chest x-ray: Radiologist's impression: ITS Impressions Knee X-Ray 05/02/24 19:32 IMPRESSION: No acute bone or joint findings. Electronically authenticated by: LUCAS RUIZ Date: 05/02/2024 21:57 Femur X-Ray 05/02/24 20:26 IMPRESSION: No acute bone or joint findings. Electronically authenticated by: LUCAS RUIZ Date: 05/02/2024 21:58 Tibia/Fibula X-Ray 05/02/24 20:26 IMPRESSION: No acute bone or joint findings. Electronically authenticated by: LUCAS RUIZ Date: 05/02/2024 21:59 Discharge Plan Discharge Stand Alone Forms: Portal Instructions Chief Complaint: Extremity Injury, Lower Clinical Impression: Acute pain of right knee Patient Disposition: Home, Self-Care Prescriptions / Home Meds: No Action sertraline 50 mg tablet 50 mg PO DAILY naltrexone 1 tab PO DAILY dextroamphetamine-amphetamine [Adderall] 30 mg tablet 30 mg PO DAILY Print Language: Congolese Instructions: Knee Pain (ED) Additional Instructions: follow up with orthopedics Referrals: Dora Ferraro MD [Primary Care Provider] - 1 week
[2024-05-02 21:00] LABS: Basophils Percent Auto 0.5 % (0.2-2.0); Eosinophils Absolute Auto 0.1 10^3/uL (0.0-0.7); Hematocrit 39.3 % (36.0-48.0); Hemoglobin 12.9 g/dL (12.0-16.0); Immature Granulocytes Abs Auto 0.02 10^3/uL (0.00-0.03); Immature Granulocytes Pct Auto 0.3 % (0.0-0.5); Lymphocytes Absolute Auto 1.7 10^3/uL (1.2-3.8); Lymphocytes Percent Auto 23.3 % (20.5-60.0); Mean Corpuscular HGB Conc 32.8 g/dL (29.9-35.2); Mean Corpuscular Hemoglobin 28.9 pg (26.7-34.0); Mean Corpuscular Volume 87.9 fL (81.0-99.0); Mean Platelet Volume 9.1 fL (9.5-13.5); Monocytes Absolute Auto 0.4 10^3/uL (0.3-0.8); Monocytes Percent Auto 5.7 % (1.7-12.0); Neutrophils Absolute Auto 5.1 10^3/uL (1.4-6.5); Neutrophils Percent Auto 69.2 % (43.0-75.0); Platelet Count 318 10^3/uL (150-450); Red Blood Count 4.47 10^6/uL (4.20-5.40); Red Cell Distribution Width 12.5 % (11.0-15.0); White Blood Count 7.3 10^3/uL (4.0-11.0)
[2024-05-02 21:14] LABS: D Dimer 0.44 mg/L FEU (<=0.59)
[2024-05-02 21:15] LABS: Alanine Aminotransferase 16 U/L (14-59); Albumin Globulin Ratio 0.9; Albumin Level 3.5 g/dL (3.4-5.0); Alkaline Phosphatase 62 U/L (46-116); Anion Gap 10.9; Aspartate Amino Transferase 10 U/L (15-37); BUN Creatinine Ratio 22.2; Bilirubin Total 0.2 mg/dL (0.2-1.0); Calcium 8.9 mg/dL (8.5-10.1); Carbon Dioxide 28.3 mmol/L (21.0-32.0); Chloride 102 mmol/L (98-107); Estimated GFR (African America >60 (>=60); Estimated GFR (Non-African Ame >60 (>=60); Globulin 3.8 g/dL; Glucose 90 mg/dL (74-106); Potassium 4.2 mmol/L (3.5-5.1); Sodium 137 mmol/L (136-145); Total Protein 7.3 g/dL (6.4-8.2)
== END 2024-05-02 22:52 | disposition home or self-care (01) ==
PROVIDERS: Emergency Provider Internal Medicine; PCP Family Medicine
DX: M25.561 Pain in right knee (principal); W19.XXXA Unspecified fall, initial encounter
CPT/HCPCS: 36415; 73552; 73564; 73590; 80048; 80053; 85025; 85378; 99285

== ENCOUNTER 2024-09-17 11:22 | Outpatient (OUT) | payer BC, SELFPAY ==
--- OUTSIDE RECORDS SUMMARY | 2024-09-17 11:31 | XMS_ITS | CCD ---
Author Organization [facility] Care Team Providers Care Medical Practice Manager Name Role Phone YELITZA JONES Unavailable Unavailable [...] [employer] Unavailable SABA, SYL Attending Unavailable SYL WALTER Consulting Unavailable SHAIKH PRATHER Consulting Unavailable SHAIKH [...] Primary Care Unavailable TERRI CURRY Admitting Unavailable [place], DR DIANA Beckwith Consulting Unavailable TERRI CURRY [...] Unavailable JONES, DR YELITZA Ma Admitting Unavailable JNOES, DR YELITZA Ma Primary Care Unavailable JONES, [...] Unavailable MD Yelitza Jones Primary Care Provider [phone] JAGDISH Estrada Attending Provider Yelitza Jones Unavailable Hilary Pierce Unavailable Luisa Mckeon Unavailable Unavailable Primary Care Provider UnavailMD Umberto Bruce Attending Provider Umberto Dia Attending Unavailable Umberto iDa Admitting Unavailable Efrain Jean Baptiste Attending Unavailable Efrain Jean Baptiste Admitting Unavailable Yelitza Jones Primary Care Unavailable SAMMI ESTRADA Attending Unavailab SAMMI Cummins Attending Unavailab BELEN Stapleton Attending Unavailable EFRAIN JEAN BAPTISTE Attending Unavailable CLINT CESPEDES Attending Unavailable BELEN BRAVO Referring Unavailable BELEN BRAVO Attending Unavailable SAMMI ESTRADA Attending Unavailab EFRAIN Fuentes Attending Unavailable Allergies Allergy Classification Reported Allergen(s) Allergy Type Date of Onset Reaction(s) Facility (1 source) NSAIDs Drug allergy (disorder) [facility] Repository (16 sources) NSAIDs Propensity to adverse reactions 02-17-20 21 Unknown [facility] Other (11 sources) Penicillin Drug Allergy Unknown [facility] Other (13 sources) SUMAtriptan Drug Allergy 02-11-20 24 Unknown, [facility] (9 sources) metroNIDAZOLE Drug Allergy 01-10-20 18 Unknown, [facility] (5 sources) Pseudoephedrine Drug Allergy 02-16-20 19 Unknown [facility] Other (1 source) Allergies Reconciled Propensity to adverse reactions Unknown [facility] Other (1 source) patient allergy list reviewed by nurse or physicia Propensity to adverse reactions 03-16-20 Comment:Done [facility] Other (5 sources) Amoxicillin Drug Allergy 06-09-20 23 [facility] (3 sources) Penicillins; Translations: [Penicillins] Allergy to substance 02-11-20 24 [facility] (3 sources) NSAIDS (Non-Steroidal Anti-Inflamma; Translations: [NSAIDS (Non-Steroidal Anti-Inflamma] Allergy to substance 02-11-20 Unknown Reaction, kidney disease [facility] (1 source) metroNIDAZOLE Drug Allergy 02-11-20 [facility] (1 source) SUMAtriptan Drug Allergy 02-11-20 [facility] Medications Current Medications Medication Drug Class(es) Dates Sig (Normalized) Sig (Original) [id number] 200 actuat albuterol 0.09 mg/actuat metered dose [...] bid prn for 10 days May, Active amphetamine aspartate 7.5 mg / amphetamine sulfate 7.5 mg / dextroamphetamine saccharate 7.5 mg / dextroamphetamine sulfate 7.5 mg oral tablet (7 sources) Central Nervous System Stimulant Start: 07-27-2024 End: 10-15-2024 take 1 tablet by mouth once daily amphetamine-dextr oamphetamine (Adderall) 30 MG tablet Indications: ADD (attention deficit disorder) without hyperactivity Take 1 tablet (30 mg) by mouth Daily 30 tablet 09/15/2024 10/15/2024 Active Start: 12-01-2023 End: 12-31-2023 take 1 capsule by mouth every twenty-four hours in the morning amphetamine-dextroamphetamine XR (Addera ll XR) 30 MG 24 hr capsule Indications: ADD (attention deficit disorder) without hyperactivity Take 1 capsule (30 mg) by mouth in the morning. Do not crush or chew.. 30 capsule 0 12/01/2023 12/25/2023 Discontinued azithromycin 250 mg oral tablet (14 sources) [...] 4 more days for 5 Dec, Active onabotulinumtoxina 200 unt injection (7 sources) Acetylcholine Release Inhibitor Start: 03-17-2024 onabotulinumtoxinA (Botox 200u vial IJ Soln) 200 units injection Indications: Intractable chronic migraine without aura and without status migrainosus (CMS/HCC) DIRECTED 155 UNITS INJECTION EVERY 90 DAYS 1 each 3 03/17/2024 Active Start: 12-25-2023 End: 12-25-2023 onabotulinumtoxinA (Botox) i njection 200 Units Botox 200 units injection DIRECTED 155 UNITS INJECTION EVERY 90 DAYS 0 Active dexamethasone 2 mg oral tablet (4 [...] sertraline 50 mg oral tablet (20 sources) Marioo zainab Velasco tor Start: 03-10-2024 End: 03-10-2025 take 1 tablet by mouth once daily sertraline (Zoloft) 50 MG tablet Indications: Depression, unspecified depression type (CMS/HCC) Take 1 tablet (50 mg) by mouth Daily 90 tablet 3 03/10/2024 03/10/2025 Active Start: 02-02-2024 take 1 tablet by jasvir th once daily Sertraline (Zoloft) 50 mg tablet [...] 1 tablet Orally Once a day Active ubrogepant 100 mg oral tablet (4 sources) Start: 08-19-2024 End: 08-19-2025 take 1 tablet by mouth once Ubrogepant (Ubrelvy) 100 MG tablet Indications: Intractable chronic migraine without aura and without status migrainosus (CMS/HCC) Take 1 tablet by mouth if needed (1 po onset migraine may repeat in 2 hours max 200 mg per dya) 16 tablet 11 08/19/2024 08/19/2025 Active Start: 03-19-2024 End: 08-19-2024 Ubrelvy 100 MG tablet 202308/19/2024 Discontinued (Reorder) Completed/Discontinued Medications Medication Drug Class(es) Dates Sig [...] 11/19/2023 12/25/2023 Discontinued take 1 capsule by [facility] every twenty-four hours Vyvanse 40 MG [...] usually diagnosed in infancy, childhood, or adolescence (7 sources) Attention deficit hyperactivity disorder, predominantly inattentive type; Translations: [Other specified behavioral and emotional disorders with onset usually occurring in childhood and adolescence] Onset: 03-10-2024 12-25-2023 Chronic Essential hypertension (9 sources) Essential hypertension; Translations: [Essential (primary) hypertension] Onset: 01-04-2024 01-04-2024 Chronic Fluid and electrolyte disorders (2 sources) [...] Translations: [Proteinuria, unspecified] Episodic Headache; including migraine (16 sources) Chronic migraine without aura, not intractable, [...] 12-06-2013 Episodic Joint disorders and dislocations; trauma-related (9 sources) Unspecified internal derangement of right knee; Translations: [Derangement of right knee] Onset: 09-11-2020 Chronic Menstrual disorders (1 source) Excessive and frequent menstruation; Translations: [Excessive and frequent menstruation with regular cycle] Chronic Mood disorders (1 source) Dysthymia; Translations: [Dysthymic disorder] Chronic Multiple sclerosis (5 sources) Multiple sclerosis; Translations: [MULTIPLE SCLEROSIS] Onset: 12-23-2020 Chronic Nephritis; nephrosis; renal sclerosis (17 sources) 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; Translations: [Nephrotic syndrome] Onset: 11-29-2016 Chronic Nonmalignant breast conditions (2 sources) Mastodynia; Translations: [Pain of right breast] 01-20-2024 Episodic Nutritional deficiencies (5 sources) Vitamin D deficiency; Translations: [Vitamin D [...] elsewhere classified] Chronic Other nervous system disorders (5 sources) Demyelinating disease of central nervous system; Translations: [Demyelinating disease of central nervous system, unspecified] Onset: 06-09-2023 06-09-2023 Chronic Other nervous system disorders (5 sources) Small fiber neuropathy; Translations: [Polyneuropathy, unspecified] [...] Complications of surgical procedures or medical care (5 sources) Drug-induced hypotension; Translations: [Hypotension due to drugs] Onset: 07-15-2017 06-09-2023 Episodic Disorders of teeth and jaw (1 source) Other specified disorders of temporomandibular joint; Translations: [Temporomandibular joint disc] Onset: 2014 Episodic Malaise and fatigue (5 sources) Other fatigue; Translations: [Fatigue] Onset: 08-21-2015 Episodic Nausea and vomiting (5 sources) Nausea, vomiting and diarrhea; Translations: [Nausea with vomiting, unspecified] Onset: 10-29-2017 06-09-2023 Episodic Nonspecific chest pain (1 source) Chest pain; Translations: [Chest pain, unspecified] Onset: 02-17-2018 Episodic Other circulatory disease (3 sources) Prehypertension; Translations: [Elevated blood-pressure reading, without diagnosis of hypertension] Onset: 01-04-2024 01-04-2024 Episodic Other lower respiratory disease (1 source) [...] Name Value Interpretation Reference Range Facility MR KNEE RIGHT WO IV CONTRAST on 05-05-2024 MR KNEE RIGHT WO IV CONTRAST EXAMINATION: MR KNEE RIGHT WO IV CONTRAST HISTORY: Knee pain. Concern for patellar fracture. TECHNIQUE: Routine non-contrast MRI of the knee, RIGHT COMPARISON: Radiographs 08/30/2020. RESULT: MENISCI: Medial Meniscus: Intact Lateral Meniscus: Intact LIGAMENTS: ACL, PCL, MCL, and LCL complex intact. CARTILAGE: Appears within normal limits. TENDONS: Mild distal quadriceps and patellar tendinosis, without tear. Popliteus intact. BONES AND MARROW: No evidence of fracture or bone marrow replacing process. MUSCLES: Muscle bulk and signal intensity are normal. JOINT FLUID AND SYNOVIUM: No joint effusion. No synovitis. No Leary's cyst. OTHER: Focal subcutaneous edema or bursitis anterior to the patella. Patella tony. IMPRESSION: No evidence for fracture. Focal edema or bursitis anterior to the patella. Intact appearing menisci and ligaments. ELECTRONICALLY SIGNED BY: Rene Carrasco MD Normal Not Available MR head/brain wo/w conon MR head/brain wo/w con [facility] [place] [address] MRI Report Signed Patient: Celi Madrid MR#: [id number] : 1985 Acct:[id number] Age/Sex: 38 / F ADM Date: 03/10/24 Loc: MR Room: Type: [facility] Attending Dr: Efrain Jean Baptiste MD Copies to: Efrain Jean Baptiste MD Ordering Provider: Efrain Jean Baptiste MD Date of Service: 03/10/24 MR/MR head/brain wo/w con: [id number], [id number] MRI of the brain with and without [...] Izaguirre Jr., D.ONaman03/11/2024 9:41 AM Dictation Location: [place] [address] Transcribed By: [facility] 03/11/24940 Dictated By: Bran Izaguirre Jr, DO 03/11/2438 Signed By: 03/11/[address] [facility] 03-04-2024 L Specimen: [id number] Received: 03/05/24 Status: SUSAN Retano Num: [id number] Spec Type: Surgical Subm Dr: Umberto Dia MD Tissues: A BREAST CORE NO CALCS (RT BREAST 9:00) Procedures: HE/4, Gross/Micro L4 Age/ Patient Sex Location Account Attending Physician Celi Madrid 38/F LABELL [id number] Umberto Dia MD SPEC NUM: [id number] RECD: 03/05/24 STATUS: SUSAN VENTURA NUM: [id number] LIS: 03/04/24- SUBM DR: Umberto Dia MD ENTERED: 03/05/[address] [facility] DR: Shaquille,Lab SPEC TYPE: Surgical DEPT: FIORELLA COHEN ORDERED: , Gross/Micro L4 ORDERED: , Gross/Micro L4 Pathological Diagnosis Right breast lesion [...] at gross: 03/05/2024 at 1441 CPT Codes 11992 Specimen: [id number] Received: 03/05/24 Status: SUSAN Ventura Num: [id number] Spec Type: Surgical Subm Dr: Umberto Dia MD Tissues: A BREAST CORE NO CALCS (RT BREAST 9:00) Procedures: , Gross/Micro L4 Patient: Celi Madrid [id number] (Continued) Signed (signature on file) Diana Lang MD 03/08/24 1200 Normal [facility] No Panel InformationOrdered By: Luisa Mckeon on 02-11-2024 Quick Strep (POC) [facility] COVID/FLU/RSV RT-PCRon 11-14 SARS-CoV-2 (COVID-19) RNA ROXANA+probe Ql (Unsp spec) Negative [facility] Other COVID/FLU/RSV RT-PCR Negative [facility] Other COVID/FLU/RSV RT-PCR Positive [facility] Other COVID Quick Testingon 2022 Result Negative [facility] Other COVID/FLU/RSV RT-PCRon 10-09 SARS-CoV-2 (COVID-19) RNA ROXANA+probe Ql (Unsp spec) Positive [facility] Other COVID/FLU/RSV RT-PCR Negative [facility] Other CBC AUTO DIFFon 08-14-2021 BASO # 0.0 103/ul Normal 0.0-0.1 [facility] Comment on above: Performed By: #### C MP, LIPID #### [facility] [address] [place] [address] Dr. Sd Jarrett Basophils/100 WBC (Bld) 0.5 % Normal 0.2-2.0 [facility] Comment on above: Performed By: #### C MP, LIPID #### [facility] [address] [place] [address] Dr. Sd Jarrett EO # 0.1 103/ul Normal 0.0-0.7 [facility] Comment on above: Performed By: #### C MP, LIPID #### [facility] [address] [place] [address] Dr. Sd Jarrett Eosinophils/100 WBC (Bld) 1.3 % Normal 0.9-7.0 [facility] Comment on above: Performed By: #### C MP, LIPID #### [facility] [address] [place] [address] Dr. Sd Jarrett Erythrocyte distribution width (RBC) [Ratio] 12.5 % Normal 11.0-15.0 [facility] Comment on above: Performed By: #### C MP, LIPID #### [facility] [address] [place] [address] Dr. Sd Jarrett Hematocrit (Bld) [Volume fraction] 40.3 % Normal 36.0-48.0 [facility] Comment on above: Performed By: #### C MP, LIPID #### [facility] [address] [place] [address] Dr. Sd Jarrett Hemoglobin (Bld) [Mass/Vol] 12.8 g/dL Normal 12.0-16.0 [facility] Comment on above: Performed By: #### C MP, LIPID #### [facility] [address] [place] [address] Dr. Sd Jarrett IG # 0.03 10e3/ul Normal 0.00-0.03 [facility] Comment on above: Performed By: #### C MP, LIPID #### [facility] [address] [place] [address] Dr. Sd Jarrett IG % 0.3 % Normal 0.0-0.5 [facility] Comment on above: Performed By: #### C MP, LIPID #### [facility] [address] [place] [address] [address] Sd Jarrett LYMPH # 2.3 103/ul Normal 1.2-3.8 [facility] Comment on above: Performed By: #### C MP, LIPID #### [facility] [address] [place] [address] [address] Sd Jarrett Lymphocytes/100 WBC (Bld) 26.7 % Normal 20.5-60.0 [facility] Comment on above: Performed By: #### C MP, LIPID #### [facility] [address] [place] [address] [address] Sd Jarrett MANUAL DIFF REQ NO Normal [facility] Comment on above: Performed By: #### C MP, LIPID #### [facility] [address] [place] [address] [address] Sd Jarrett MCH (RBC) [Entitic mass] 29.3 pg Normal 26.7-34.0 [facility] Comment on above: Performed By: #### C MP, LIPID #### [facility] [address] [address] [address] Sd Jarrett MCHC (RBC) [Mass/Vol] 31.8 g/dL Normal 29.9-35.2 [facility] Comment on above: Performed By: #### C MP, LIPID #### [facility] [address] [address] [address] Sd Jarrett MCV (RBC) [Entitic vol] 92.2 fL Normal 81.0-99.0 [facility] Comment on above: Performed By: #### C MP, LIPID #### [facility] [address] [address] [address] Sd Jarrett MONO # 0.5 103/ul Normal 0.3-0.8 [facility] Comment on above: Performed By: #### C MP, LIPID #### [facility] [address] [address] [address] Sd Jarrett Monocytes/100 WBC (Bld) 5.8 % Normal 1.7-12.0 [facility] Comment on above: Performed By: #### C MP, LIPID #### [facility] [address] [place] [address] Dr. Sd Jarrett NEUT # 5.6 103/ul Normal 1.4-6.5 [facility] Comment on above: Performed By: #### C MP, LIPID #### [facility] [address] [place] [address] Dr. Sd Jarrett Neutrophils/100 WBC (Bld) 65.4 % Normal 43.0-75.0 [facility] Comment on above: Performed By: #### C MP, LIPID #### [facility] [address] [place] [address] Dr. Sd Jarrett Platelet mean volume (Bld) [Entitic vol] 9.9 fL Normal 9.5-13.5 [facility] Comment on above: Performed By: #### C MP, LIPID #### [facility] [address] [place] [address] Dr. Sd Jarrett PLT 315 103/ul Normal 150-450 [facility] Comment on above: Performed By: #### C MP, LIPID #### [facility] [address] [place] [address] Dr. Sd Jarrett RBC 4.37 106/ul Normal 4.20-5.40 [facility] Comment on above: Performed By: #### C MP, LIPID #### [facility] [address] [place] [address] Dr. Sd Jarrett WBC 8.6 103/ul Normal 4.0-11.0 [facility] Comment on above: Performed By: #### C MP, LIPID #### [facility] [address] [place] [address] Dr. Sd Jarrett LIPID PROFILEon 08-14-2021 CHOL-HDL RATIO NORM SEE BELOW Normal [facility] Comment on above: Result Comment: 3.3 - 4.4 LOW RISK 4.4 - 7.1 AVERAGE RISK 7.1 - 11.0 MODERATE RISK >11.0 HIGH RISK Performed By: #### C MP, LIPID #### [facility] [address] [address] [address] Sd Jarrett Cholesterol [Mass/Vol] 294 mg/dL Critically high <=200 [facility] Comment on above: Performed By: #### C MP, LIPID #### [facility] [address] [address] [address] Sd Jarrett Cholesterol in HDL [Mass/Vol] 64 mg/dL Normal [facility] Comment on above: Performed By: #### C MP, LIPID #### [facility] [address] [address] [address] Sd Jarrett Cholesterol in LDL [Mass/Vol] 192.4 mg/dL Normal [facility] Comment on above: Performed By: #### C MP, LIPID #### [facility] [address] [address] [address] Sd Jarrett Cholesterol.total/Ch olesterol in HDL [Mass ratio] 4.6 {ratio} Normal [facility] Comment on above: Performed By: #### C MP, LIPID #### [facility] [address] [address] [address] Sd Jarrett HDL NORMAL > or = 60 mg/dl - LO W CARDIOVASCULAR RISK <40 mg/dl - HIGH CARDIOVASCULAR RISK Normal [facility] Comment on above: Performed By: #### C MP, LIPID #### [facility] [address] [address] [address] Sd Jarrett LDL CALC NORMAL SEE BELOW Normal [facility] Comment on above: Result Comment: <100 mg/dl OPTIMAL 100 - 129 mg/dl NEAR OR ABOVE OPTIMAL 130 - 159 mg/dl BORDERLINE HIGH 160 - 189 mg/dl HIGH >190 mg/dl VERY HIGH Performed By: #### C MP, LIPID #### [facility] [address] [address] [address] Sd Jarrett Triglyceride [Mass/Vol] 188 mg/dL Critically high <=150 [facility] Comment on above: Performed By: #### C MP, LIPID #### [facility] [address] [address] [address] Sd Jarrett VLDL CALC 37.6 mg/dL Normal [facility] Comment on above: Performed By: #### C MP, LIPID #### [facility] [address] [address] [address] Sd Jarrett PROF 14(COMP METB)on 021 Albumin [Mass/Vol] 3.4 g/dL Critically low 3.5-5.0 [facility] e [facility] Comment on above: Performed By: #### C MP, LIPID #### [facility] [address] [place] [address] Dr. Sd Jarrett Albumin/Globulin [Mass ratio] 0.9 {ratio} Normal [facility] Comment on above: Performed By: #### C MP, LIPID #### [facility] [address] [place] [address] Dr. Sd Jarrett ALP [Catalytic activity/Vol] 69 U/L Normal 38-126 [facility] Comment on above: Performed By: #### C MP, LIPID #### [facility] [address] [place] [address] Dr. Sd Jarrett ALT [Catalytic activity/Vol] 32 U/L Normal 9-52 [facility] Comment on above: Performed By: #### C MP, LIPID #### [facility] [address] [place] [address] Dr. Sd Jarrett Anion gap [Moles/Vol] 9.4 mmol/L Normal [facility] Comment on above: Performed By: #### C MP, LIPID #### [facility] [address] [place] [address] Dr. Sd Jarrett AST [Catalytic activity/Vol] 16 U/L Normal 14-36 [facility] Comment on above: Performed By: #### C MP, LIPID #### [facility] [address] [place] [address] Dr. Sd Jarrett Bilirubin [Mass/Vol] 0.2 mg/dL Normal 0.2-1.3 [facility] Comment on above: Performed By: #### C MP, LIPID #### [facility] [address] [place] [address] Dr. Sd Jarrett Calcium [Mass/Vol] 8.9 mg/dL Normal 8.4-10.2 [facility] Comment on above: Performed By: #### C MP, LIPID #### [facility] [address] [place] [address] Dr. Sd Jarrett Chloride [Moles/Vol] 100 mmol/L Normal 98-107 [facility] Comment on above: Performed By: #### C MP, LIPID #### [facility] [address] [place] [address] Dr. Sd Jarrett CO2 [Moles/Vol] 30.5 mmol/L Critically high 22.0-30.0 [facility] Comment on above: Performed By: #### C MP, LIPID #### [facility] [address] [place] [address] Dr. Sd Jarrett Creatinine [Mass/Vol] 0.60 mg/dL Normal 0.52-1.04 [facility] Comment on above: Performed By: #### C MP, LIPID #### [facility] [address] [place] [address] Dr. Sd Jarrett EGFR-AF PUERTO RICAN >60 Normal >=60 [facility] Comment on above: Performed By: #### C MP, LIPID #### [facility] [address] [place] [address] Dr. Sd Jarrett EGFR-NON AF PUERTO RICAN >60 Normal >=60 [facility] Comment on above: Performed By: #### C MP, LIPID #### [facility] [address] [place] [address] Dr. Sd Jarrett Globulin (S) [Mass/Vol] 4.0 g/dL Normal [facility] Comment on above: Performed By: #### C MP, LIPID #### [facility] [address] [place] [address] Dr. Sd Jarrett Glucose [Mass/Vol] 76 mg/dL Normal 74-106 [facility] Comment on above: Performed By: #### C MP, LIPID #### [facility] [address] [place] [address] Dr. Sd Jarrett Potassium [Moles/Vol] 3.9 mmol/L Normal 3.4-5.0 [facility] Comment on above: Performed By: #### C MP, LIPID #### [facility] [address] [address] [address] Sd Jarrett Protein [Mass/Vol] 7.4 g/dL Normal 6.1-8.2 [facility] Comment on above: Performed By: #### C MP, LIPID #### [facility] [address] [address] [address] Sd Jarrett Sodium [Moles/Vol] 136 mmol/L Critically low 137-145 [facility] Comment on above: Performed By: #### C MP, LIPID #### [facility] [address] [address] [address] Sd Jarrett Urea nitrogen [Mass/Vol] 10.0 mg/dL Normal 7.0-17.0 [facility] Comment on above: Performed By: #### C MP, LIPID #### [facility] [address] [address] [address] Sd Jarrett Urea nitrogen/Creatinine [Mass ratio] 16.7 mg/mg Normal [facility] Comment on above: Performed By: #### C MP, LIPID #### [facility] [address] [address] [address] Sd Jarrett XR FOOT LIAM MIN [...] by: UMBERTO DIA Date: 2021-07-05 14:12 Normal [facility] XR FOOT LIAM MIN 3 VIEWSon XR [...] JOEL COLE Date: 2021-06-12 15:05 Normal [facility] XR FOOT LIAM MIN 3 VIEWSon [...] UMBERTO DIA Date: 2021-05-23 08:04 Normal [facility] CBC AUTO DIFFon 05-18-2021 BASO # 0.0 103/ul Normal 0.0-0.1 [facility] Comment on above: Performed By: #### C BC #### [facility] [address] [place], [place] [address] Woody Yulissa Basophils/100 WBC (Bld) 0.4 % Normal 0.2-2.0 [facility] [facility] Comment on above: Performed By: #### C BC #### [facility] [address] [place], [place] [address] Woody Yulissa EO # 0.1 103/ul Normal 0.0-0.7 [facility] Comment on above: Performed By: #### C BC #### [facility] [address], [place] [address] Woody Yulissa Eosinophils/100 WBC (Bld) 1.4 % Normal 0.9-7.0 [facility] Comment on above: Performed By: #### C BC #### [facility] [address] [place] [address] Woody Yulissa Erythrocyte distribution width (RBC) [Ratio] 12.4 % Normal 11.0-15.0 [facility] Comment on above: Performed By: #### C BC #### [facility] [address] [place] [address] Woody Yulissa Hematocrit (Bld) [Volume fraction] 40.1 % Normal 36.0-48.0 [facility] Comment on above: Performed By: #### C BC #### [facility] [address] [place] [address] Woody Yulissa Hemoglobin (Bld) [Mass/Vol] 13.2 g/dL Normal 12.0-16.0 [facility] Comment on above: Performed By: #### C BC #### [facility] [address] [place] [address] Woody Yulissa IG # 0.03 10e3/ul Normal 0.00-0.03 [facility] Comment on above: Performed By: #### C BC #### [facility] [address] [place] [address] Woody Yulissa IG % 0.4 % Normal 0.0-0.5 [facility] Comment on above: Performed By: #### C BC #### [facility] [address] [place] [address] Woody Yulissa LYMPH # 2.1 103/ul Normal 1.2-3.8 [facility] Comment on above: Performed By: #### C BC #### [facility] [address] [place] [address] Woody Yulissa Lymphocytes/100 WBC (Bld) 29.1 % Normal 20.5-60.0 [facility] Comment on above: Performed By: #### C BC #### [facility] [address] [place], [place] [id number] Woody Yulissa MANUAL DIFF REQ NO Normal [facility] Comment on above: Performed By: #### C BC #### [facility] [address] [place] [address] Woody Yulissa MCH (RBC) [Entitic mass] 29.5 pg Normal 26.7-34.0 [facility] Comment on above: Performed By: #### C BC #### [facility] [address] [place] [address] Woody Duenas MCHC (RBC) [Mass/Vol] 32.9 g/dL Normal 29.9-35.2 [facility] Comment on above: Performed By: #### C BC #### [facility] [address] [place] [address] Woody Duenas MCV (RBC) [Entitic vol] 89.7 fL Normal 81.0-99.0 [facility] Comment on above: Performed By: #### C BC #### [facility] [address] [place] [address] Woody Duenas MONO # 0.4 103/ul Normal 0.3-0.8 [facility] Comment on above: Performed By: #### C BC #### [facility] [address] [place] [address] Woody Duenas Monocytes/100 WBC (Bld) 5.6 % Normal 1.7-12.0 [facility] Comment on above: Performed By: #### C BC #### [facility] [address] [place] [address] Woody Duenas NEUT # 4.6 103/ul Normal 1.4-6.5 [facility] Comment on above: Performed By: #### C BC #### [facility] [address] [place] [address] Woody Duenas Neutrophils/100 WBC (Bld) 63.1 % Normal 43.0-75.0 [facility] Comment on above: Performed By: #### C BC #### [facility] [address] [place], [place] [id number] Woodyanika Duenas Platelet mean volume (Bld) [Entitic vol] 9.3 fL Critically low 9.5-13.5 [facility] Comment on above: Performed By: #### C BC #### [facility] [address] [place], [place] [address] Woody Yulissa PLT 278 103/ul Normal 150-450 [facility] Comment on above: Performed By: #### C BC #### [facility] [address], [place] [address] Woody Yulissa RBC 4.47 106/ul Normal 4.20-5.40 [facility] Comment on above: Performed By: #### C BC #### [facility] [address] [place] [id number] Woody Yulissa WBC 7.3 103/ul Normal 4.0-11.0 [facility] Comment on above: Performed By: #### C BC #### [facility] [address], [place] [address] Woody Yulissa FERRITINon 05-18-2021 Ferritin [Mass/Vol] 75.0 ng/mL Normal 6.2-137.0 [facility] Comment on above: Performed By: #### C MP, LIPID #### [facility] [phone] [address] Sd Jarrett RENAL FUNCTION PANELon 05-18 Albumin [Mass/Vol] 3.4 g/dL Critically low 3.5-5.0 [facility] Comment on above: Performed By: #### R ENAL ####[facility] [address] [place] [phone] Yulissa Calcium [Mass/Vol] 8.9 mg/dL Normal 8.4-10.2 [facility] Comment on above: Performed By: #### R ENAL ####[facility] [address] [place] [phone] Yulissa Chloride [Moles/Vol] 105 mmol/L Normal 98-107 [facility] Comment on above: Performed By: #### R ENAL ####[facility] [address] [place] [phone] Yulissa CO2 [Moles/Vol] 27.6 mmol/L Normal 22.0-30.0 [facility] Comment on above: Performed By: #### R ENAL ####[facility] [address] [place] [phone] Yulissa Creatinine [Mass/Vol] 0.64 mg/dL Normal 0.52-1.04 [facility] Comment on above: Performed By: #### R ENAL ####[facility] [address] [place], [place] [address]Tokjei Yulissa EGFR-AF PUERTO RICAN >60 Normal >=60 [facility] Comment on above: Performed By: #### R ENAL ####[facility] [address] [place], [place] [address]Kkhewy Yulissa EGFR-NON AF PUERTO RICAN >60 Normal >=60 [facility] Comment on above: Performed By: #### R ENAL ####[facility] [address]sw[address] [place] [phone] Yulissa Glucose [Mass/Vol] 62 mg/dL Critically low 74-106 [facility] Comment on above: Performed By: #### R ENAL ####[facility] [address] [place] [phone] Yulissa Phosphate [Mass/Vol] 2.4 mg/dL Critically low 2.5-4.5 [facility] Comment on above: Performed By: #### R ENAL ####[facility] [address] [place], [place] [phone] Yulissa Potassium [Moles/Vol] 4.1 mmol/L Normal 3.4-5.0 [facility] Comment on above: Performed By: #### R ENAL ####[facility] [address] [place] [phone] Yulissa Sodium [Moles/Vol] 141 mmol/L Normal 137-145 [facility] Comment on above: Performed By: #### R ENAL ####[facility] [address]twjhw[address] [place] [phone] Yulissa Urea nitrogen [Mass/Vol] 12.0 mg/dL Normal 7.0-17.0 [facility] Comment on above: Performed By: #### R ENAL ####[facility] [address] [place] [phone] Yulissa UA RANDOM W/MICROSCOPICon BACTERIA SMALL Abnormal NONE SEEN The [facility] Comment on above: Performed By: #### U AMIC ####[facility] [address]ug[address] [place], [place] [address]Fcokfe Yulissa Bilirubin Ql (U) Negative Normal NEGATIVE [facility] Comment on above: Performed By: #### U AMIC ####[facility] [address] [place] [address]Lcpiir Yulissa CAST NONE SEEN Normal NONE SEEN The [facility] Comment on above: Performed By: #### U AMIC ####[facility] [address]rpsscmef[address] [place], [place] [address]Isnofw Yulissa Clarity (U) CLEAR Normal CLEAR [facility] Comment on above: Performed By: #### U AMIC ####[facility] [address] [place], [place] [phone] Yulissa Color (U) YELLOW Normal YELLOW [facility] Comment on above: Performed By: #### U AMIC ####[facility] [address] [place], [place] [phone] Yulissa Crystals LM Nom (Urine sed) NONE SEEN Normal NONE SEEN The [facility] Comment on above: Performed By: #### U AMIC ####[facility] [address] [place] [address]Tacuqh Yulissa Epithelial cells LM Ql (Urine sed) MODERATE Abnormal NONE SEEN /RARE [facility] Comment on above: Performed By: #### U AMIC ####[facility] [address] [place], [place] [phone] Yulissa Glucose Ql (U) Negative Normal NEGATIVE The [facility] Comment on above: Performed By: #### U AMIC ####[facility] [address] [place] [address]Ahnhxv Yulissa Hemoglobin Ql (U) MODERATE Abnormal NEGATIVE The [facility] Comment on above: Performed By: #### U AMIC ####[facility] [address] [place] [address]Deefbk Yulissa Ketones Ql (U) Negative Normal NEGATIVE The [facility] Comment on above: Performed By: #### U AMIC ####[facility] [address] [place] [phone] Yulissa LEUKOCYTES Negative Normal NEGATIVE [facility] Comment on above: Performed By: #### U AMIC ####[facility] [address] [place], [place] [address]Hsupvo Yulissa MUCOUS MODERATE Abnormal NONE SEEN [facility] Comment on above: Performed By: #### U AMIC ####[facility] [address] [place] [phone] Yulissa Nitrite Ql (U) Negative Normal NEGATIVE The [facility] Comment on above: Performed By: #### U AMIC ####[facility] R[address] Yulissa pH (U) 5.5 [pH] Normal 5-9 [facility] Comment on above: Performed By: #### U AMIC ####[facility] [address] [place] [address] Yulissa RBC 0-2 Normal 0-2 [facility] Comment on above: Performed By: #### U AMIC ####[facility] [address] [place], [place] [phone] Yulissa SPEC GRAVITY >=1.030 Abnormal 1.005-<=1.0 25 [facility] Comment on above: Performed By: #### U AMIC ####[facility] [address] [place] [address] Yulissa UA PROTEIN 100 mg/dl Abnormal NEGATIVE/ TRACE [facility] Comment on above: Performed By: #### U AMIC ####[facility] [address] [place], [place] [phone] Yulissa Urobilinogen Qn (U) 0.2 {Ratna'U}/dL Normal 0.2 - 1. 0 [facility] Comment on above: Performed By: #### U AMIC ####[facility] [address] [place], [place] [phone] Yulissa WBC 0-2 Abnormal NONE SEEN The [facility] Comment on above: Performed By: #### U AMIC ####[facility] G[address]eslz[address] Yulissa URINE T PROTEIN CREAT RATIOo n 05-18-2021 Protein (U) [Mass/Vol] 98.3 mg/dL Critically high <=12.0 [facility] Comment on above: Performed By: #### C MP, LIPID #### [facility] [address] [place] [address] [address] Sd Jarrett UR PROT CREAT RAT 0.41 Normal [facility] Comment on above: Performed By: #### C MP, LIPID #### [facility] [address] [place] [address] [address] Sd Jarrett URINE CREAT 240.76 mg/dL Normal 20.00-300.0 0 [facility] Comment on above: Performed By: #### C MP, LIPID #### [facility] [address] [place] [address] [address] Sd Jarrett QUANTIFERON TB GOLD PLUS (NO N-INC)on 05-09-2021 Comment Incubation performed. Normal [facility] Comment on above: Performed By: #### Q NTTBG ####[facility] Injny[address] Yulissa Criteria Comment Normal [facility] Comment on above: Result Comment: The QuantiFERON-TB Gold Plus result is determined by subtracting the Nil value from either TB antigen (Ag) tube. The mitogen tube serves as a control for the test. Performed By: #### Q NTTBG ####[facility] G[address]ac[address] Yulissa Mitogen Value >10.00 Normal The [facility] Comment on above: Performed By: #### Q NTTBG ####[facility] N[address]zn[address] Yulissa Nill Value 0.00 IU/mL Normal [facility] Comment on above: Performed By: #### Q NTTBG ####[facility] L[address]zvimu[address] Yulissa Quantiferon Gold Plus Negative Normal Negative [facility] Comment on above: Result Comment: Chem iluminescence immunoassay methodology Performed By: #### Q NTTBG ####[facility] Idplqfyxit[address] Yulissa TB1 Ag Value 0.00 IU/mL Normal [facility] Comment on above: Performed By: #### Q NTTBG ####[facility] Guvox[address] Yulissa TB2 Ag Value 0.00 IU/mL Normal [facility] Comment on above: Performed By: #### Q NTTBG ####[facility] Zefimfs[address] Yulissa HEPATITIS B SURFACE ANTIBODY , QUANTon 05-08-2021 Hepatitis B Surf AB Quant 688.8 mIU/mL Normal Immunity>9. 9 [facility] Comment on above: Result Comment: Stat us of Immunity Anti-HBs Level Inconsistent with Immunity 0.0 - 9.9 Consistent with Immunity >9.9 Performed By: #### H EPBSRF ####[facility] [address] [place] [address] Yulissa MMR IMMUNITYon 05-08-2021 Mumps Abs, IgG <9.0 Critically low Immune >10.9 [facility] Comment on above: Result Comment: Nega tive <9.0 Equivocal 9.0 - 10.9 Positive >10.9 A positive result generally indicates past exposure to Mumps virus or previous vaccination. Performed By: #### M MRIMMU ####[facility] R[address] Yulissa Rubella Antibodies, IgG 3.59 index Normal Immune >0.99 [facility] Comment on above: Result Comment: Non- immune <0.90 Equivocal 0.90 - 0.99 Immune >0.99 Performed By: #### M MRIMMU ####[facility] [address] [place] [address] Yulissa Rubeola Ab, IgG 280.0 AU/mL Normal Immune >16.4 [facility] Comment on above: Result Comment: Nega tive <13.5 Equivocal 13.5 - 16.4 Positive >16.4 Presence of antibodies to Rubeola is presumptive evidence of immunity except when acute infection is suspected. Performed By: #### M MRIMMU ####[facility] [address] [place], [place] [address]Msnake Karen VARICELLA IGG ABon 1 Varicella Zoster IgG 639 index Normal Immune >165 [facility] Comment on above: Result Comment: Nega tive <135 Equivocal 135 - 165 Positive >165 A positive result generally indicates exposure to the pathogen or administration of specific immunoglobulins, but it is not indication of active infection or stage of disease. Performed By: #### C MP, LIPID #### [facility] [address] [place] [address] Dr. Sd Jarrett THYROGLOBULIN ABon 1 Thyroglobulin Antibody <1.0 Normal 0.0-0.9 [facility] Comment on above: Result Comment: Thyr oglobulin Antibody measured by [employer] Methodology Performed By: #### T HYGAB #### [facility] [address] [place] [address] Woody Mcclouden FREE T4on 03-23-2021 Free T4 [Mass/Vol] 0.91 ng/dL Normal 0.78-2.19 [facility] Comment on above: Performed By: #### C MP, LIPID #### [facility] [address] [place] [address] Dr. Sd Jarrett TSHon 03-23-2021 TSH 1.710 uIU/mL Normal 0.470-4.680 [facility] Comment on above: Performed By: #### T SH #### [facility] [address] [place] [address] Woody Duenas TSH RANGE SEE BELOW Normal [facility] Comment on above: Result Comment: <0.3 4 UIU/ml HYPERTHYROID 0.34-5.60 UIU/ml EUTHYROID >5.60 UIU/ml HYPOTHYROID Performed By: #### T SH #### [facility] [address], [place] [address] Woodyanika Duenas MYELIN BASIC PROT CSFon 02-08 Myelin Basic Protein, CSF 2.1 ng/mL Normal 0.0-3.7 [facility] Comment on above: Performed By: #### M BPCSF ####[facility] [address] [place], [place] [address]Tpulfs Yulissa IMMUNOGLOBULIN G SYNTHESIS R ATE, CSFon 02-20-2021 Albumin [Mass/Vol] 3.7 g/dL Critically low 3.8-4.8 [facility] Comment on above: Performed By: #### I MMUNGC ####[facility] [address] [place], [place] [address]Nggvwj Yulissa Albumin, CSF 13 mg/dL Normal 11-48 [facility] Comment on above: Performed By: #### I MMUNGC ####[facility] [address]os[address] [place], [place] [address]Oowatq Yulissa IgG, Quant, CSF 1.9 mg/dL Normal 0.0-8.6 [facility] Comment on above: Performed By: #### I MMUNGC ####[facility] [address] [place], [place] [address]Fffpaw Yulissa IgG, Syn Rate,CSF -1.5 mg/day Normal 9.9 TO +3.3 [facility] Comment on above: Performed By: #### I MMUNGC ####[facility] [address] [place], [place] [address]Itrdzr Yulissa Immunoglobulin G, Qn, Serum 935 mg/dL Normal 586-1602 [facility] Comment on above: Performed By: #### I MMUNGC ####[facility] [address] [place], [place] [address]Xekggv Yulissa OILGOCLONAL BANDING CSFon Oligoclonal Bands Comment Normal [facility] Comment on above: Result Comment: Zero (0) [...] Performed By: #### C MP, LIPID #### [facility] [address] [place] [address] Dr. Sd Jarrett CELL COUNT CSFon 02-16-2021 CSF CLARITY CLEAR Normal CLEAR [facility] Comment on above: Performed By: #### C CCSF ####[facility] [address] [place] [address]Gerken Yulissa Performed By: #### C MP, LIPID #### [facility] [address] [place] [address] [address] Sd Jarrett CSF COLOR COLORLESS Normal COLORLESS [facility] Comment on above: Performed By: #### C CCSF ####[facility] [address] [place] [address]Gerken Yulissa Performed By: #### C MP, LIPID #### [facility] [address] [place] [address] [address] Sd Jarrett CSF RBC 11 cubic mm Normal [facility] Comment on above: Performed By: #### C CCSF ####[facility] [address] [place] [address]Ger[address] Yulissa CSF RBC 1 cubic mm Normal [facility] Comment on above: Performed By: #### C MP, LIPID #### [facility] [address] [place] [address] [address] Sd Jarrett CSF VOLUME 10.0 mL Normal [facility] Comment on above: Performed By: #### C CCSF ####[facility] [address] [place] Performed By: #### C MP, LIPID #### [facility] [address] [place] [address] [address] Sd Jarrett CSF WBC 0 cubic mm Normal [facility] Comment on above: Performed By: #### C CCSF ####[facility] N[address] [place] Performed By: #### C MP, LIPID #### [facility] [address] [place] [address] [address] Sd Jarrett CSF WBC HEADER REFERENCE RANGE 5-10 WBC/cubic mm = BORDERLINE Normal [facility] Comment on above: Performed By: #### C CCSF ####[facility] Ill[address]tyzsge[address] [place] Performed By: #### C MP, LIPID #### [facility] [address] [place] [address] [address] Sd Jarrett GLUCOSE CSFon 02-16-2021 GLUCOSE CSF 59 mg/dL Normal 40-70 [facility] Comment on above: Performed By: #### G LUCSF, PROTCSF ####[facility] M[address]wb[address] [place] LAB TESTINGon 02-16-2021 RECV HEADER SEE SCANNED REPORT IN HPF Normal [facility] Comment on above: Performed By: #### M ISC ####[facility] I[address]ky[address]irfu[address] [place] REV FROM REF LAB 02/16/2021 [facility] Comment on above: Performed By: #### M ISC ####[facility] Tiud[address] Y[place]issa SENT TO REF LAB 02/16/2021 [facility] Comment on above: Performed By: #### M ISC ####[facility] [address]wt[address]mov[address] [place] RECV HEADER SEE SCANNED REPORT IN HPF Normal [facility] Comment on above: Performed By: #### M ISC ####[facility] [address] [place], [place] [address]HwdnxeWoody Duenas REV FROM REF LAB 02/21/2021 Normal [facility] Comment on above: Performed By: #### M ISC ####[facility] [address] [place], [place] [address]SthgpaWoody Duenas SENT TO REF LAB 02/17/2021 Normal [facility] Comment on above: Performed By: #### M ISC ####[facility] [address] [place], [place] [address]KvckhoWoody Duenas PROTEIN CSFon 02-16-2021 TOT PROT CSF 29 mg/dL Normal 12-60 [facility] Comment on above: Performed By: #### G LUCSF, PROTCSF ####[facility] [address] [place], [place] [address]BadezbWoody Duenas CNOVon 02-13-2021 CNOV Office Visit (NEMEFV ) ----- CELI MADRID ([id number]) 1985 F Date Time Provider Department 02/13/21 10:00 AM HARDIK GARCIA During your visit today, we recorded the following information about you: Temperature Pulse Blood pressure Weight 97.8 degrees 91/minute 114/75 71.6 kg Height 1.575 m Hardik Garcia MD 02/13/2021 11:20 AM [facility] NEW EVALUATION Referral source: Yelitza Jones MD [address] [place] [phone] PRINCIPAL NEUROLOGIC DIAGNOSIS: Right arm pain, cognitive [...] expected to be with me at the [facility]. Ms. Madrid notes that in 2016, she had a lot of fatigue and was getting sick frequently. She was sent to an arresting gear operator and was given the pneumonia vaccine [...] She has followed with Dr. Castillo in [place] at the [facility]. He recommended Ocrevus. She has discussed this with her liver doctor and gotten the ok to proceed with it. Dr. Castillo has suggested a lumbar puncture, but that has not been done yet. Prior to the above, she denies any history of episodic neurologic impairment that might be consistent with [employer] demyelination, such as unilateral visual loss, focal [...] (without correction) OS= 20/20 (without correction). Visual idaz were full to confrontation. Pupils were 6 [...] the arms and legs was intact including jmcit-qy-aexpc, rapid-alternating, and fine movements. Sensory examination: Light [...] which included preparing to see the patient, nugk-[id number] patient care, performing a medically appropriate examination, completing clinical documentation, reviewing records, and counseling/educating the patient/family. Hardik Garcia MD Staff Neurologist [facility] for Multiple Sclerosis Referring Provider: SELF [[id number]] [...] extremity [M79.601] Order(s):DAVE/ANGIOTENSIN BLD [SQACE] Order #: [id number] FUTURE ANTI BRENT ID [SQENAID] Order #: [id number] FUTURE JASVIR BY IFA WITH REFLEX [SQANAIFR] Order #: [id number] FUTURE FOLATE SERUM [SQSERFOL] Order #: [id number] FUTURE HOMOCYSTEINE [SQHOMCYS] Order #: [id number] FUTURE LYME AB LATE >30 DAYS SYMPTOMS [SQLMLATE] Order #: [id number] FUTURE METHYLMALONIC ACID [SQMMA] Order #: [id number] FUTURE SYPHILIS TOTAL W/REFLEX [SQSYPHTX] Order #: [id number] FUTURE TSH BLD [SQTSH] Order #: [id number] FUTURE COPPER BLOOD [SQCOPPER] Order #: [id number] FUTURE CERULOPLASMIN BLD [SQCERULO] Order #: [id number] FUTURE Prescriptions as of 02/13/2021 Sig: ROSUVASTATIN [...] Status:Closed by HARDIK GARCIA MD on 02/13/21 [facility] PROGRESSon 02-13-2021 PROGRESS HNO ID: [id number] Author: Hardik Garcia Service: ? Author Type: Physician Type: Progress Notes Filed: 02/13/2021 11:20 AM Note Text: [facility] NEW EVALUATION Referral source: Yelitza Jones MD [address] [facility] [address] PRINCIPAL NEUROLOGIC DIAGNOSIS: Right arm pain, cognitive [...] expected to be with me at the [facility]. Ms. Madrid notes that in 2017, she had a lot of fatigue and was getting sick frequently. She was sent to an arresting gear operator and was given the pneumonia vaccine [...] She has followed with Dr. Castillo in [place] at the [facility]. He recommended Ocrevus. She has discussed this with her liver doctor and gotten the ok to proceed with it. Dr. Castillo has suggested a lumbar puncture, but that has not been done yet. 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 Sensory examination: Light [...] which included preparing to see the patient, kvva-zv-gabl patient care, performing a medically appropriate examination, completing clinical documentation, reviewing records, and counseling/educating the patient/family. Hardik Garcia MD Staff Neurologist [facility] Multiple Sclerosis [facility] MR OUTSIDE CD DICOM IMPORT - NBNRon 01-05-2021 MR OUTSIDE CD DICOM IMPORT -NBNR Images were obtained outside of [facility] [id number] Normal [facility] MR OUTSIDE CD DICOM IMPORT -NBNR Images were obtained outside of [facility] [id number] Normal [facility] XR OUTSIDE CD DICOM IMPORT - NBNRon 01-05-2021 XR OUTSIDE CD DICOM IMPORT -NBNR Images were obtained outside of [facility] [id number] Normal [facility] TOM VIRUS DNA, PCR WHOLE BLOO Don 12-28-2020 TOM Virus DNA,PCR (Whole Blood) Negative Normal Negative [facility] Comment on above: Result Comment: No J CV DNA detected This test was developed and its performance characteristics determined by [facility]. It has not been cleared or approved by the Food and Drug Administration. The FDA has determined that such clearance or approval is not necessary. Performed By: #### J CVPCR ####[facility] Dbvyto[address] QUANTIFERON TB GOLD PLUS (NO N-INC)on 12-27-2020 Comment Incubation performed. Normal [facility] Comment on above: Performed By: #### Q NTTBG ####[facility] [address] Criteria Comment Normal [facility] Comment on above: Result Comment: The QuantiFERON-TB Gold Plus result is determined by subtracting the Nil value from either TB antigen (Ag) tube. The mitogen tube serves as a control for the test. Performed By: #### Q NTTBG ####[facility] J[address] Yulissa Mitogen Value >10.00 Normal [facility] Comment on above: Performed By: #### Q NTTBG ####[facility] Hfmkkqxhdj[address] Yulissa Nill Value 0.17 IU/mL Normal [facility] Comment on above: Performed By: #### Q NTTBG ####[facility] [address] [place] [address] Yulissa Quantiferon Gold Plus Negative Normal Negative [facility] Comment on above: Performed By: #### Q NTTBG ####[facility] [address] [place] [address] Yulissa TB1 Ag Value 0.16 IU/mL Normal [facility] Comment on above: Performed By: #### Q NTTBG ####[facility] [address] [place] [address] Yulissa TB2 Ag Value 0.17 IU/mL Normal [facility] Comment on above: Performed By: #### Q NTTBG ####[facility] [address] [place] [address] HEPATITIS PANEL, ACUTEon HBsAg Screen Negative Normal Negative [facility] Comment on above: Performed By: #### C MP, LIPID #### [facility] [address] [place] [address] Dr. Sd Jarrett Hep A Ab, IgM Negative Normal Negative [facility] Comment on above: Performed By: #### C MP, LIPID #### [facility] [address] [place] [address] Dr. Sd Jarrett Hep B Core Ab, IgM Negative Normal Negative [facility] Comment on above: Performed By: #### C MP, LIPID #### [facility] [address] [address] [address] Sd Jarrett Hep C Virus Ab <0.1 Normal 0.0-0.9 [facility] Comment on above: Result Comment: Nega tive: < 0.8 Indeterminate: 0.8 - 0.9 Positive: > 0.9 . The [facility] recommends that a positive HCV antibody result be followed up with a HCV Nucleic Acid Amplification test (827339). Performed By: #### C MP, LIPID #### [facility] [address] [address] [address] Sd Jarrett LYME DISEASE AB, TOTAL AND I GM W/WB REFEon 12-25-2020 Lyme Disease Ab, Quant, IgM <0.80 Normal 0.00-0.79 [facility] Comment on above: Result Comment: Nega tive <0.80 Equivocal 0.80 - 1.19 Positive >1.19 . IgM levels may peak at 3-6 weeks post infection, then gradually decline. Performed By: #### C MP, LIPID #### [facility] [address] [place] [address] Dr. Sd Jarrett Lyme IgG/IgM Ab <0.91 Normal 0.00-0.90 [facility] Comment on above: Result Comment: Nega tive <0.91 Equivocal 0.91 - 1.09 Positive >1.09 Performed By: #### C MP, LIPID #### [facility] [address] [place] [address] Dr. Sd Jarrett VARICELLA ZOSTER VIRUS IGM Q UANTon 12-25-2020 Varicella-Zoster Ab, IgM <0.91 Normal 0.00-0.90 [facility] Comment on above: Result Comment: Nega tive <0.91 Borderline 0.91 - 1.09 Positive >1.09 Performed By: #### V ARCIGM ####[facility] [address] [address]Woody Duenas IMMUNOGLOBULIN IGG QUANTITAT IVEon 12-24-2020 Immunoglobulin G, Qn, Serum 839 mg/dL Normal 586-1602 [facility] Comment on above: Performed By: #### C MP, LIPID #### [facility] [address] [place] [address] Dr. Sd Jarrett IMMUNOGLOBULIN IGM QUANTITAT IVEon 12-24-2020 Immunoglobulin M, Qn, Serum 170 mg/dL Normal 26-217 [facility] Comment on above: Performed By: #### C MP, LIPID #### [facility] [address] [place] [address] Dr. Sd Jarrett VARICELLA IGG ABon 1 Varicella Zoster IgG 641 index Normal Immune >165 [facility] Comment on above: Result Comment: Nega tive <135 Equivocal 135 - 165 Positive >165 A positive result generally indicates exposure to the pathogen or administration of specific immunoglobulins, but it is not indication of active infection or stage of disease. Performed By: #### C MP, LIPID #### [facility] [address] [place] [address] Dr. Sd Jarrett CBC AUTO DIFFon 12-23-2020 BASO # 0.0 103/ul Normal 0.0-0.1 [facility] Comment on above: Performed By: #### C MP, LIPID #### [facility] [address] [place] [address] Dr. Sd Jarrett Basophils/100 WBC (Bld) 0.7 % Normal 0.2-2.0 [facility] Comment on above: Performed By: #### C MP, LIPID #### [facility] [address] [place] [address] Dr. Sd Jarrett EO # 0.2 103/ul Normal 0.0-0.7 [facility] Comment on above: Performed By: #### C MP, LIPID #### [facility] [address] [place] [address] Dr. Sd Jarrett Eosinophils/100 WBC (Bld) 4.1 % Normal 0.9-7.0 [facility] Comment on above: Performed By: #### C MP, LIPID #### [facility] [address] [place] [address] Dr. Sd Jarrett Erythrocyte distribution width (RBC) [Ratio] 12.8 % Normal 11.0-15.0 [facility] Comment on above: Performed By: #### C MP, LIPID #### [facility] [address] [place] [address] Dr. Sd Jarrett Hematocrit (Bld) [Volume fraction] 38.1 % Normal 36.0-48.0 [facility] Comment on above: Performed By: #### C MP, LIPID #### [facility] [address] [place] [address] Dr. Sd Jarrett Hemoglobin (Bld) [Mass/Vol] 12.3 g/dL Normal 12.0-16.0 [facility] Comment on above: Performed By: #### C MP, LIPID #### [facility] [address] [place] [address] Dr. Sd Jarrett IG # 0.02 10e3/ul Normal 0.00-0.03 [facility] Comment on above: Performed By: #### C MP, LIPID #### [facility] [address] [place] [address] Dr. Sd Jarrett IG % 0.5 % Normal 0.0-0.5 [facility] Comment on above: Performed By: #### C MP, LIPID #### [facility] [address] [place] [address] Dr. Sd Jarrett LYMPH # 1.2 103/ul Normal 1.2-3.8 [facility] Comment on above: Performed By: #### C MP, LIPID #### [facility] [address] [place] [address] Dr. Sd Jarrett Lymphocytes/100 WBC (Bld) 26.2 % Normal 20.5-60.0 [facility] Comment on above: Performed By: #### C MP, LIPID #### [facility] [address] [place] [address] Dr. Sd Jarrett MANUAL DIFF REQ NO Normal [facility] Comment on above: Performed By: #### C MP, LIPID #### [facility] [address] [place] [address] Dr. Sd Jarrett MCH (RBC) [Entitic mass] 29.1 pg Normal 26.7-34.0 [facility] Comment on above: Performed By: #### C MP, LIPID #### [facility] [address] [place] [address] Dr. Sd Jarrett MCHC (RBC) [Mass/Vol] 32.3 g/dL Normal 29.9-35.2 [facility] Comment on above: Performed By: #### C MP, LIPID #### [facility] [address] [place] [address] Dr. Sd Jarrett MCV (RBC) [Entitic vol] 90.3 fL Normal 81.0-99.0 [facility] Comment on above: Performed By: #### C MP, LIPID #### [facility] [address] [place] [address] Dr. Sd Jarrett MONO # 0.3 103/ul Normal 0.3-0.8 [facility] Comment on above: Performed By: #### C MP, LIPID #### [facility] [address] [place] [address] Dr. Sd Jarrett Monocytes/100 WBC (Bld) 7.2 % Normal 1.7-12.0 [facility] Comment on above: Performed By: #### C MP, LIPID #### [facility] [address] [place] [address] Dr. Sd Jarrett NEUT # 2.7 103/ul Normal 1.4-6.5 [facility] Comment on above: Performed By: #### C MP, LIPID #### [facility] [address] [place] [address] Dr. Sd Jarrett Neutrophils/100 WBC (Bld) 61.3 % Normal 43.0-75.0 [facility] Comment on above: Performed By: #### C MP, LIPID #### [facility] [address] [place] [address] Dr. Sd Jarrett Platelet mean volume (Bld) [Entitic vol] 9.3 fL Critically low 9.5-13.5 [facility] Comment on above: Performed By: #### C MP, LIPID #### [facility] [address] [place] [address] Dr. Sd Jarrett PLT 177 103/ul Normal 150-450 [facility] Comment on above: Performed By: #### C MP, LIPID #### [facility] [address] [place] [address] Dr. Sd Jarrett RBC 4.22 106/ul Normal 4.20-5.40 [facility] Comment on above: Performed By: #### C MP, LIPID #### [facility] [address] [place] [address] Dr. Sd Jarrett WBC 4.4 103/ul Normal 4.0-11.0 [facility] Comment on above: Performed By: #### C MP, LIPID #### [facility] [address] [place] [address] Dr. Sd Jarrett PREG QUANT HCGon 12-23-2020 HCG QUANT <1 Normal [facility] Comment on above: Performed By: #### C MP, TSH, PREGQNT #### [facility] [address] [place] [address] Woody Duenas HCG RANGE SEE BELOW Normal [facility] Comment on above: Result Comment: 5-50 0-1 WEEK 40-300 1-2 WEEKS 100-1,000 2-3 WEEKS 500-6,000 3-4 WEEKS 5,000-200,000 1-2 MONTHS 10,000-100,000 2-3 MONTHS 3,000-50,000 2ND TRIMESTER 1,000-50,000 3RD TRIMESTER Performed By: #### C MP, TSH, PREGQNT #### [facility] [address] [place] [address] Woody Duenas PROF 14(COMP METB)on 021 Albumin [Mass/Vol] 2.8 g/dL Critically low 3.5-5.0 Th e [facility] Comment on above: Performed By: #### C MP, TSH, PREGQNT #### [facility] [address] [place] [address] Woody Duenas Albumin/Globulin [Mass ratio] 0.7 {ratio} Normal [facility] Comment on above: Performed By: #### C MP, TSH, PREGQNT #### [facility] [address] [id number] Woody Yulissa ALP [Catalytic activity/Vol] 78 U/L Normal 38-126 [facility] Comment on above: Performed By: #### C MP, TSH, PREGQNT #### [facility] [address] [id number] Woody Yulissa ALT [Catalytic activity/Vol] 74 U/L Critically high 9-52 [facility] Comment on above: Performed By: #### C MP, TSH, PREGQNT #### [facility] [address] [id number] Woody Yulissa Anion gap [Moles/Vol] 10.8 mmol/L Normal [facility] Comment on above: Performed By: #### C MP, TSH, PREGQNT #### [facility] [address] [place] [address] Woody Yulissa AST [Catalytic activity/Vol] 50 U/L Critically high 14-36 [facility] Comment on above: Performed By: #### C MP, TSH, PREGQNT #### [facility] [address] [address] Woody Yulissa Bilirubin [Mass/Vol] 0.2 mg/dL Normal 0.2-1.3 [facility] Comment on above: Performed By: #### C MP, TSH, PREGQNT #### [facility] [address] [place], [place] [address] Woody Yulissa Calcium [Mass/Vol] 8.6 mg/dL Normal 8.4-10.2 [facility] Comment on above: Performed By: #### C MP, TSH, PREGQNT #### [facility] [address] [address] Woody Yulissa Chloride [Moles/Vol] 105 mmol/L Normal 98-107 [facility] Comment on above: Performed By: #### C MP, TSH, PREGQNT #### [facility] [address] [id number] Woody Yulissa CO2 [Moles/Vol] 28.2 mmol/L Normal 22.0-30.0 [facility] Comment on above: Performed By: #### C MP, TSH, PREGQNT #### [facility] [address] [place], [place] [address] Woody Yulissa Creatinine [Mass/Vol] 0.53 mg/dL Normal 0.52-1.04 [facility] Comment on above: Performed By: #### C MP, TSH, PREGQNT #### [facility] [address] [place], [place] [address] Woody Yulissa EGFR-AF PUERTO RICAN >60 Normal >=60 [facility] Comment on above: Performed By: #### C MP, TSH, PREGQNT #### [facility] [address] [place], [place] [address] Woody Yulissa EGFR-NON AF PUERTO RICAN >60 Normal >=60 [facility] Comment on above: Performed By: #### C MP, TSH, PREGQNT #### [facility] [address] [id number] Woody Yulissa Globulin (S) [Mass/Vol] 3.9 g/dL Normal [facility] Comment on above: Performed By: #### C MP, TSH, PREGQNT #### [facility] [address] [place], [place] [address] Woody Yulissa Glucose [Mass/Vol] 99 mg/dL Normal 74-106 [facility] Comment on above: Performed By: #### C MP, TSH, PREGQNT #### [facility] [address] [id number] Woody Yulissa Potassium [Moles/Vol] 4.0 mmol/L Normal 3.4-5.0 [facility] Comment on above: Performed By: #### C MP, TSH, PREGQNT #### [facility] [address] [id number] Woody Yulissa Protein [Mass/Vol] 6.7 g/dL Normal 6.1-8.2 [facility] Comment on above: Performed By: #### C MP, TSH, PREGQNT #### [facility] [address] [id number] Woody Yulissa Sodium [Moles/Vol] 140 mmol/L Normal 137-145 [facility] Comment on above: Performed By: #### C MP, TSH, PREGQNT #### [facility] [address] [place] [address] Woody Duenas Urea nitrogen [Mass/Vol] 10.0 mg/dL Normal 7.0-17.0 [facility] Comment on above: Performed By: #### C MP, TSH, PREGQNT #### [facility] [address] [place], [place] [address] Woody Duenas Urea nitrogen/Creatinine [Mass ratio] 18.9 mg/mg Normal [facility] Comment on above: Performed By: #### C MP, TSH, PREGQNT #### [facility] [address] [place], [place] [address] Woody Duenas TSHon 12-23-2020 TSH 1.598 uIU/mL Normal 0.470-4.[address] [facility] Comment on above: Performed By: #### C MP, TSH, PREGQNT #### [facility] [address] [place] [address] Woody Duenas TSH RANGE SEE BELOW Normal [facility] Comment on above: Result Comment: <0.3 4 UIU/ml HYPERTHYROID 0.34-5.60 UIU/ml EUTHYROID >5.60 UIU/ml HYPOTHYROID Performed By: #### C MP, TSH, PREGQNT #### [facility] [address] [place], [place] [id number] Woody Duenas VITAMIN B12on 12-23-2020 Cobalamin (Vitamin B12) [Mass/Vol] 538.0 pg/mL Normal 239.0-931.0 [facility] Comment on above: Performed By: #### V ITB12 ####[facility] [address] [id number] Duenas MR OUTSIDE CD DICOM IMPORT - NBNRon 12-07-2020 MR OUTSIDE CD DICOM IMPORT -NBNR Images were obtained outside of [facility] [id number] Normal [facility] SARS-CoV2 ANTIBODIES (IgM, I gG, IgA)on 11-14-2020 SARS-CoV-2 (COVID-19) RNA ROXANA+probe Ql (Unsp spec) Negative Normal Negative [facility] Comment on above: Result Comment: This sample does not contain detectable SARS-CoV-2 antibodies. This negative result does not rule out SARS-CoV-2 infection. Correlation with epidemiologic risk factors and other clinical and laboratory findings is recommended. Serologic results should not be used as the sole basis to diagnose or exclude recent SARS-CoV-2 infection. Performed By: #### C VDABS ####[facility] [address] [place], [place] [address]Xkgxom Karen Covid-19 PCR (CVDTB)on 10-10 EUA Statement SEE BELOW Normal [facility] Comment on above: Result Comment: This test is not yet approved or cleared by the [place] FDA. When there are no FDA-approved or cleared tests available, and other criteria are met, FDA can make tests available under an emergency access mechanism called an Emergency Use Authorization (EUA). The EUA for this test is supported by the Office Support Associate of Health and Human Service?s (HHS?s) declaration [...] with SARS-CoV-2. Performed By: #### C VDTBH ####[facility] [address] [place], [place] [address]MvufeoWoody Duenas SARS-CoV-2 (COVID-19) RNA ROXANA+probe Ql (Unsp spec) Not detected Normal NOT DETECTED [facility] Comment on above: Result Comment: This test is not yet approved or cleared by the [place] FDA. When there are no FDA-approved or cleared tests available, and other criteria are met, FDA can make tests available under an emergency access mechanism called an Emergency Use Authorization (EUA). The EUA for this test is supported by the [place] of Health and Human Service's (HHS's) declaration [...] used). Performed By: #### C [facility] ####[facility] [address] [place], [place] [address]Cxxrdz Yulissa MRI KNEE RT WO CONon 020 [...] by: DIANA MONROY Date: 2020-09-11 14:09 Normal [facility] Cult,Bloodon 11-05-2017 Cult,Blood Specimen Description .BLOOD Special Requests R ARM 6 ML Culture NO GROWTH 6 DAYS Report Status FINAL 11/05/2017 Normal [place] Comment on above: Performed By: #### B C ####[facility] [place], [place] [address] Cult,Blood Specimen Description .BLOOD Special Requests LT HAND 5ML Culture NO GROWTH 6 DAYS Report Status FINAL 11/05/2017 [facility] Comment on above: Performed By: #### B C ####[address] [id number] Cult,Bloodon 11-04-2017 Cult,Blood Specimen Description .BLOOD Special Requests LT AC 7 ML Culture NO GROWTH 6 DAYS Report Status FINAL 11/04/2017 [facility] Comment on above: Performed By: #### B C ####[address] [id number] Cult,Bloodon 11-01-2017 Cult,Blood Specimen Description .BLOODSpecial Requests RT F ARM 7 MLCulture POSITIVE BLOOD CULTURE, RN NOTIFIED: CATARINO Dunlap AT 0810 ON 10/30/17 DIRECT GRAM STAIN FROM BOTTLE: GRAM POSITIVE COCCI IN CHAINS AND PAIRS PNAFISH negative. Culture results to follow. VIRIDANS STREPTOCOCCUS GROUP SEVERAL MORPHOTYPES Report Status FINAL 11/01/2017 [facility] Comment on above: Performed By: #### B C ####[address] [id number] Cult,Urine,CCon 10-31-2017 Cult,Urine,CC Specimen Description .CLEAN CATCH URINESpecial Requests NOT REPORTEDCulture GROUP D ENTEROCOCCUS 10 to 50,000 CFU/MLReport Status FINAL 10/30/2017SUSCEPTIBILITYO rganism EGDMethod MICAmpicillin <=2 SUSCEPTIBLEPenicillin NOT REPORTEDCiprofloxacin 1 SUSCEPTIBLEErythromycin NOT REPORTEDGentamicin,High Level NOT REPORTEDLevofloxacin 1 SUSCEPTIBLELinezolid NOT REPORTEDNitrofurantoin <=16 SUSCEPTIBLESynercid NOT REPORTEDStreptomycin,Hi Level NOT REPORTEDTetracycline <=1 SUSCEPTIBLETigecycline NOT REPORTEDVancomycin 1 SUSCEPTIBLE [facility] Comment on above: Performed By: #### C JASS ####[address] [id number] Progress Noteon 10-30-2017 HIM IP Note OR [employer] Normal [place] Basic Metabolic Profon 10-29 (cont.) Normal [place] Comment on above: Result Comment: Aver age GFR for 30-39 years old: 107 mL/min/1.73sq mChronic Kidney Disease: <60 mL/min/1.73sq mKidney failure: <15 mL/min/1.73sq meGFR calculated using average adult body mass. Additional eGFR calculator available at:http://[email or web address]_[email or web address].htmChildren[facility] [address] [place] [address] Performed By: #### C DP, BMP ####[address] [address] Anion gap 12 mmol/L Normal 9-17 [place] Comment on above: Performed By: #### C DP, BMP ####[facility]comDqakmuhkvsui[address] [place] [address] Calcium 7.6 mg/dL Low 8.6-10.4 [place] Comment on above: Performed By: #### C DP, BMP ####[facility]comBjnlyemhsxqe[address] [place] [address] Chloride 104 mmol/L Normal 98-107 [place] Comment on above: Performed By: #### C DP, BMP ####[facility]4cast.comMrljmcubrbfu[address] [place] [address] CO2 24 mmol/L Normal 20-31 [place] Comment on above: Performed By: #### C DP, BMP ####CheckIn[employer]Me[address] [place] [address] Creatinine 0.37 mg/dL Low 0.50-0.90 [place] Comment on above: Performed By: #### C DP, BMP ####[employer]Me[address] [place] [address] eGFR (non-black) mL/min/{1.73_m2} Normal >60 [facility] Comment on above: Performed By: #### C DP, BMP ####[address] [address] Glucose mass conc 90 mg/dL Normal 70-99 [facility] Comment on above: Performed By: #### C DP, BMP ####[address] [address] Potassium molar conc 4.0 mmol/L Normal 3.7-5.3 [facility] Comment on above: Performed By: #### C DP, BMP ####[address] [address] Sodium 140 mmol/L Normal 135-144 [place] Comment on above: Performed By: #### C DP, BMP ####[address] [address] Urea nitrogen 8 mg/dL Normal 6-20 [place] Comment on above: Performed By: #### C DP, BMP ####[address] [address] BUN/CRE Ratio NOT REPORTED Normal - [place] Comment on above: Performed By: #### C DP, BMP ####[address] [address] Staging: NOT REPORTED Normal [place] Comment on above: Performed By: #### C DP, BMP ####[address] [address] CBC with Diffon 10-29-2017 Abs. Basophil 0.03 k/uL Normal 0.00-0.20 [place] Comment on above: Performed By: #### C DP, BMP ####[address] [address] Abs.Neutrophil (Seg) 3.73 k/uL Normal 1.50-8.10 [facility] Comment on above: Performed By: #### C DP, BMP ####[address] [address] Basophils/100 WBC Auto (Bld) 1 % Normal 0-2 [place] Comment on above: Performed By: #### C DP, BMP ####[address] [address] Eosinophils 0.19 10*3/uL Normal 0.00-0.44 [place] Comment on above: Performed By: #### C DP, BMP ####[address] [address] Eosinophils/100 leukocytes 3 % Normal 1-4 [place] Comment on above: Performed By: #### C DP, BMP ####[address] [address] Erythrocyte distribution width Auto Ratio (RBC) 13.1 % Normal 11.8-14.4 [place] Comment on above: Performed By: #### C DP, BMP ####[address] [address] Erythrocytes (RBC) 3.84 10*6/uL Low 3.95-5.11 [facility] Comment on above: Performed By: #### C DP, BMP ####[address] [address] Granulocytes/100 WBC (Bld) % Normal 0.00-0.30 [place] Comment on above: Result Comment: [address] [address] Performed By: #### C DP, BMP ####[address] [address] Hematocrit (HCT) 34.9 % Low 36.3-47.1 [facility] Comment on above: Performed By: #### C DP, BMP ####[address] [address] Hemoglobin mass conc (Bld) 10.6 g/dL Low 11.9-15.1 [place] Comment on above: Performed By: #### C DP, BMP ####[address] [address] Immature granulocytes #/vol (Bld) 0 % Normal 0 [place] Comment on above: Performed By: #### C DP, BMP ####[address] [address] Lymphocytes 1.70 10*3/uL Normal 1.10-3.70 [place] Comment on above: Performed By: #### C DP, BMP ####[address] [address] Lymphocytes/100 leukocytes 28 % Normal 24-43 [place] Comment on above: Performed By: #### C DP, BMP ####[address] [address] MCH 27.6 pg Normal 25.2-33.5 [place] Comment on above: Performed By: #### C DP, BMP ####[address] [address] MCHC mass conc (RBC) 30.4 g/dL Normal 28.4-34.8 [facility] Comment on above: Performed By: #### C DP, BMP ####[address] [address] MCV 90.9 fL Normal 82.6-102.9 [place] Comment on above: Performed By: #### C DP, BMP ####[address] [place] [address] Monocytes 0.36 10*3/uL Normal 0.10-1.20 [place] Comment on above: Performed By: #### C DP, BMP ####[facility] ChengUjxtngafaywt8247 [place] [address] Monocytes/100 leukocytes 6 % Normal 3-12 [place] Comment on above: Performed By: #### C DP, BMP ####[facility] ChengQdgkcjdzjdsf2737 [place] [address] Neutrophil (Seg) 62 % Normal 36-65 [facility] Comment on above: Performed By: #### C DP, BMP ####[facility] [place] [address] Platelet mean volume (PMV) 9.9 fL Normal 8.1-13.5 [place] Comment on above: Performed By: #### C DP, BMP ####[address] [address] Platelets 347 10*3/uL Normal 138-453 [place] Comment on above: Performed By: #### C DP, BMP ####[facility] [address]ww8052 [place] [address] WBC (Leukocytes) 6.0 10*3/uL Normal 3.5-11.3 [facility] Comment on above: Performed By: #### C DP, BMP ####[facility] ChengRndkawbpglty0097 [place] [address] Auto Diff Performed NOT REPORTED Normal [facility] Comment on above: Performed By: #### C DP, BMP ####[facility] Tw[address]zvplzmf5412 [place] [address] Erythrocyte morphology NOT REPORTED Normal [place] Comment on above: Performed By: #### C DP, BMP ####[address] [address] [place] [address] Platelets NOT REPORTED Normal [place] Comment on above: Performed By: #### C DP, BMP ####[facility] [address]yssl3266 [place] [address] WBC Morphology NOT REPORTED Normal [facility] Comment on above: Performed By: #### C DP, BMP ####[facility] [place] [address] Discharge Summaryon 10-29-20 17 HIM IP Note OR [employer] Normal [place] History and Physicalon 10-29 HIM IP Note OR [employer] Normal [place] UA w/Reflex Cultureon 2016 Bilirubin (direct) Negative Abnormal NEG [place] Comment on above: Performed By: #### CORBIN MESSINA ####[address] [address] Comment Culture ordered base d on defined criteria. Normal [place] Comment on above: Result Comment: [address] [place] [address] Performed By: #### CORBIN MESSINA ####[address] [address] Acetaminophen mass conc LARGE Abnormal NEG [place] Comment on above: Performed By: #### U CORBIN ESTEVES ####[facility] [address]wgpnflq7913 [place] [address] Hemoglobin mass conc (Bld) Negative Normal NEG [place] Comment on above: Performed By: #### U CORBIN ESTEVES ####[facility] [address] [place] [address] Nitrite,Ur Positive Abnormal NEG [place] Comment on above: Performed By: #### U CORBIN ESTEVES ####[facility] [address] [place] [address] Turbidity CLOUDY Abnormal CLEAR [place] Comment on above: Performed By: #### U CORBIN ESTEVES ####[facility] Cmwbwxevcswz4638 [place] [address] Urine, color DARK YELLOW Abnormal YEL [place] Comment on above: Performed By: #### U AXCORBIN ####[facility] [address]atdpqztcg1157 [place] [address] Urine, glucose presence Negative Normal NEG [place] Comment on above: Performed By: #### U CORBIN ESTEVES ####[facility] Sl[address]zbfqccrq6688 [place] [address] Urine, leukocyte esterase presence TRACE Abnormal NEG [place] Comment on above: Performed By: #### U CORBIN ESTEVES ####[facility] Ikxxokquaacc7389 [place] [address] Urine, pH 6.5 [pH] Normal 5.0-8.0 [place] Comment on above: Performed By: #### CORBIN MESSINA ####[facility] Yfvzgampjcqu7104 [place] [address] Urine, protein presence 3+ Abnormal NEG [place] Comment on above: Performed By: #### U AXCORBIN ####[facility] [address]vxqk7010 [place] [address] Urine, specific gravity 1.023 Normal 1.005-1.030 [place] Comment on above: Performed By: #### U CORBIN ESTEVES ####[facility] [address]vhbdpcfjjm4459 [place] [address] Urobilinogen,Ur Normal Normal NORM [place] Comment on above: Performed By: #### U CORBIN ESTEVES ####[facility] [address]xbxzuzr1543 [place] [address] Urinalysis,Microon 12-20-201 7 Urine, crystals in sediment FEW Abnormal NONE [place] Comment on above: Result Comment: URIC ACID Performed By: #### U AX, UMICAO ####[facility]c4cast.comWnffkiclrqup[address] [place] [address] Urine, yeast presence in sediment FEW Abnormal NONE [place] Comment on above: Result Comment: [facility] [employer] [address] [place] [address] Performed By: #### U AX, UMICAO ####[facility] [address] [place] [address] ----- Normal [place] Comment on above: Performed By: #### U AX, UMICAO ####[facility] [address] [place] [address] Urine WBC's 2 TO 5 Normal 0-5 [place] Comment on above: Performed By: #### U AX, UMICAO ####[facility].comDbmevpysjefb[address] [place] [address] Urine, epithelial cells in sediment 10 TO 20 Normal 0-5 [place] Comment on above: Performed By: #### U AX, UMICAO ####[facility].comHxicwgtbtmty034[address] [place] [address] Urine, erythrocytes 0 TO 2 Normal 0-4 [place] Comment on above: Result Comment: Refe rence range defined for non-centrifuged specimen. Performed By: #### U AX, UMICAO ####[facility] [address] [place] [address] Epithelial, Renal NOT REPORTED Normal 0 [place] Comment on above: Performed By: #### U AX, UMICAO ####[facility].comQapvgmfloypw[address] [place] [address] Mucus Strands NOT REPORTED Normal NONE [place] Comment on above: Performed By: #### U AX, UMICAO ####[facility] [address]38 [place] [address] Other Observations NOT REPORTED Normal NREQ [facility] Comment on above: Performed By: #### U AX, UMICAO ####[facility] Ntilgutcgger1287 [place] [address] Trichomonas NOT REPORTED Normal NONE [place] Comment on above: Performed By: #### U AX, UMICAO ####[facility] Jsxdpcmktcia5361 [place] [address] Urine, amorphous sediment presence in sediment NOT REPORTED Normal NONE [place] Comment on above: Performed By: #### U AX, UMICAO ####[facility] Bsncbbboaezv2248 [place] [address] Urine, bacteria in sediment NOT REPORTED Normal NONE [place] Comment on above: Performed By: #### U AX, UMICAO ####[facility] Ssfssewiwcfy9281 [place] [address] Urine, casts in sediment NOT REPORTED Normal 0-8 [place] Comment on above: Performed By: #### U AX, UMICAO ####[facility] G[address]ahcjdvvc9219 [place] [address] Basic Metabolic Profon 10-28 (cont.) Normal [place] Comment on above: Result Comment: Aver age GFR for 30-39 years old: 107 mL/min/1.73sq mChronic Kidney Disease: <60 mL/min/1.73sq mKidney failure: <15 mL/min/1.73sq meGFR calculated using average adult body mass. Additional eGFR calculator available at:[email or web address] V[address] [place] [address] Performed By: #### C DP, BMP ####[facility] K[address]e1407 [place] [address] Anion gap 12 mmol/L Normal 9-17 [place] Comment on above: Performed By: #### C DP, BMP ####[facility] [address]20 [place] [address] Calcium 8.4 mg/dL Low 8.6-10.4 [place] Comment on above: Performed By: #### C DP, BMP ####[facility] Fdvflhpqvrdc9159 [place] [address] Chloride 98 mmol/L Normal 98-107 [place] Comment on above: Performed By: #### C DP, BMP ####[facility] Y[address]rfibcwk3979 [place] [address] CO2 27 mmol/L Normal 20-31 [place] Comment on above: Performed By: #### C DP, BMP ####[facility] R[address]um[address]hlkvf3394 [place] [address] Creatinine 0.44 mg/dL Low 0.50-0.90 [place] Comment on above: Performed By: #### C DP, BMP ####[facility] [place] [address] eGFR (non-black) mL/min/{1.73_m2} Normal >60 [facility] Comment on above: Performed By: #### C DP, BMP ####[facility] Hpdns[address]apfxk7374 [place] [address] Glucose mass conc 108 mg/dL High 70-99 [facility] Comment on above: Performed By: #### C DP, BMP ####[facility] [address]fbvphl7226 [place] [address] Potassium molar conc 3.5 mmol/L Low 3.7-5.3 [facility] Comment on above: Performed By: #### C DP, BMP ####[address] [address] Sodium 137 mmol/L Normal 135-144 [place] Comment on above: Performed By: #### C DP, BMP ####[address] [address] Urea nitrogen 10 mg/dL Normal 6-20 [place] Comment on above: Performed By: #### C DP, BMP ####[address] [address] BUN/CRE Ratio NOT REPORTED Normal -20 [place] Comment on above: Performed By: #### C DP, BMP ####[address] [address] Staging: NOT REPORTED Normal [place] Comment on above: Performed By: #### C DP, BMP ####[address] [address] CBC with Diffon 10-28-2017 Abs. Basophil 0.03 k/uL Normal 0.00-0.20 [place] Comment on above: Performed By: #### C DP, BMP ####[address] [address] Abs.Neutrophil (Seg) 5.25 k/uL Normal 1.50-8.10 [facility] Comment on above: Performed By: #### C DP, BMP ####[address] [address] Basophils/100 WBC Auto (Bld) 0 % Normal 0-2 [place] Comment on above: Performed By: #### C DP, BMP ####[address] [address] Eosinophils 0.17 10*3/uL Normal 0.00-0.44 [place] Comment on above: Performed By: #### C DP, BMP ####[address] [address] Eosinophils/100 leukocytes 2 % Normal 1-4 [place] Comment on above: Performed By: #### C DP, BMP ####[address] [address] Erythrocyte distribution width Auto Ratio (RBC) 13.2 % Normal 11.8-14.4 [place] Comment on above: Performed By: #### C DP, BMP ####[address] [address] Erythrocytes (RBC) 4.39 10*6/uL Normal 3.95-5.11 [facility] Comment on above: Performed By: #### C DP, BMP ####[address] [address] Granulocytes/100 WBC (Bld) 0.03 k/uL Normal 0.00-0.30 [place] Comment on above: Result Comment: [address] [place] [address] Performed By: #### C DP, BMP ####[address] [address] Hematocrit (HCT) 38.7 % Normal 36.3-47.1 [facility] Comment on above: Performed By: #### C DP, BMP ####[address] [address] Hemoglobin mass conc (Bld) 12.2 g/dL Normal 11.9-15.1 [place] Comment on above: Performed By: #### C DP, BMP ####[address] [address] Immature granulocytes #/vol (Bld) 0 % Normal 0 [place] Comment on above: Performed By: #### C DP, BMP ####[address] [address] Lymphocytes 1.71 10*3/uL Normal 1.10-3.70 [place] Comment on above: Performed By: #### C DP, BMP ####[address] [address] Lymphocytes/100 leukocytes 22 % Low 24-43 [place] Comment on above: Performed By: #### C DP, BMP ####[address] [address] MCH 27.8 pg Normal 25.2-33.5 [place] Comment on above: Performed By: #### C DP, BMP ####[address] [address] MCHC mass conc (RBC) 31.5 g/dL Normal 28.4-34.8 [facility] Comment on above: Performed By: #### C DP, BMP ####[address] [address] MCV 88.2 fL Normal 82.6-102.9 [place] Comment on above: Performed By: #### C DP, BMP ####[address] [address] Monocytes 0.44 10*3/uL Normal 0.10-1.20 [place] Comment on above: Performed By: #### C DP, BMP ####[address] [address] Monocytes/100 leukocytes 6 % Normal 3-12 [place] Comment on above: Performed By: #### C DP, BMP ####[address] [address] Neutrophil (Seg) 70 % High 36-65 [facility] Comment on above: Performed By: #### C DP, BMP ####[address] [address] Platelet mean volume (PMV) 9.6 fL Normal 8.1-13.5 [place] Comment on above: Performed By: #### C DP, BMP ####[address] [address] Platelets 456 10*3/uL High 138-453 [place] Comment on above: Performed By: #### C DP, BMP ####[address] [address] WBC (Leukocytes) 7.6 10*3/uL Normal 3.5-11.3 [facility] Comment on above: Performed By: #### C DP, BMP ####[address] [address] Auto Diff Performed NOT REPORTED Normal [facility] Comment on above: Performed By: #### C DP, BMP ####[address] [address] Erythrocyte morphology NOT REPORTED Normal [place] Comment on above: Performed By: #### C DP, BMP ####[address] [address] Platelets NOT REPORTED Normal [place] Comment on above: Performed By: #### C DP, BMP ####[address] [address] WBC Morphology NOT REPORTED Normal [facility] Comment on above: Performed By: #### C DP, BMP ####[address] [address] ED Noteon 10-28-2017 HIM IP Note OR [employer] Normal [place] HIM IP Note OR [employer] Normal [place] HIM IP Note OR [employer] Normal [place] HIM IP Note OR [employer] Normal [place] ED Provider Noteon 7 HIM IP Note OR [employer] Normal [place] Vital Signs Date Time Vital Sign Value Performing Clinician Facility 02-11-2024 11:20-0400 Body height 157.48 cm [facility] 02-11-2024 11:20-0400 Body mass index (BMI) [Ratio] 25.6 kg/m2 [facility] 02-11-2024 11:20-0400 Body temperature 99.5 [degF] [facility] 02-11-2024 11:20-0400 Body weight 63.5 kg [facility] 02-11-2024 11:20-0400 Diastolic blood pressure 81 mm[Hg] [facility] 02-11-2024 11:20-0400 Heart rate 105 /min [facility] 02-11-2024 11:20-0400 Respiratory rate 18 /min [facility] 02-11-2024 11:20-0400 SaO2% (BldA) [Mass fraction] 98 % [facility] 02-11-2024 11:20-0400 Systolic blood pressure 128 mm[Hg] [facility] 12-25-2023 13:40-0500 Body height 157.5 cm Sammi Estrada [employer] READER Work Phone: [facility] 12-25-2023 13:40-0500 Body mass index (BMI) [Ratio] 25.61 kg/m2 Sammi Estrada [employer] READER Work Phone: [facility] 12-25-2023 13:40-0500 Body weight 63.5 kg Sammi Estrada [employer] SCI[employer] READER Work Phone: [facility] 12-25-2023 13:40-0500 Diastolic blood pressure 82 mm[Hg] Sammi Estrada [employer] SCI[employer] READER Work Phone: [facility] 12-25-2023 13:40-0500 Systolic blood pressure 120 mm[Hg] Sammi Estrada [employer] SCI[employer] READER Work Phone: [facility] 11-14-2023 16:30-0500 Body height 157.48 cm Luisa Mayomond Other [facility] 11-14-2023 16:30-0500 Body mass index (BMI) [Ratio] 26.01 kg/m2 Luisa Mayomond Other [facility] Other 11-14-2023 16:30-0500 Body temperature 98 [degF] Luisa Mckeon Other [facility] Other 11-14-2023 16:30-0500 Body weight 64.5 kg Luisa Mckeon Other [facility] 11-14-2023 16:30-0500 Respiratory rate 18 /min Luisa Mckeon Other [facility] Other 11-14-2023 16:30-0500 SaO2% (BldA) [Mass fraction] 97 % Luisa Mckeon Other [facility] Other 11-04-2023 15:00-0500 Body height 157.48 cm Yelitza Jones Other [facility] Other 11-04-2023 15:00-0500 Body mass index (BMI) [Ratio] 26.12 kg/m2 Yelitza Jones Other [facility] Other 11-04-2023 15:00-0500 Body temperature 99.3 [degF] Yelitza Jones Other [facility] Other 11-04-2023 15:00-0500 Body weight 64.77 kg Yelitza Jones Other [facility] Other 11-04-2023 15:00-0500 Diastolic blood pressure 84 mm[Hg] Yelitza Jones Other [facility] Other 11-04-2023 15:00-0500 Systolic blood pressure 117 mm[Hg] Yelitza Jones Other [facility] Other 10-09-2023 09:50-0500 Body height 157.48 cm Hilary Kari Other [facility] Other 10-09-2023 09:50-0500 Body mass index (BMI) [Ratio] 27.43 kg/m2 Hilary Kari Other [facility] Other 10-09-2023 09:50-0500 Body temperature 98.1 [degF] Hilary Kari Other [facility] Other 10-09-2023 09:50-0500 Body weight 68.04 kg Hilary Kari Other [facility] Other 10-09-2023 09:50-0500 Respiratory rate 18 /min Hilary Kari Other [facility] Other 10-09-2023 09:50-0500 SaO2% (BldA) [Mass fraction] 99 % Hilary Kari Other [facility] Other 07-29-2023 09:45-0400 Body height 157.48 cm Yelitza Jones Other [facility] Other 07-29-2023 09:45-0400 Body mass index (BMI) [Ratio] 26.15 kg/m2 Yelitza Jones Other [facility] Other 07-29-2023 09:45-0400 Body temperature 98.2 [degF] Yelitza Jones Other [facility] Other 07-29-2023 09:45-0400 Body weight 64.86 kg Yelitza Jones Other [facility] Other 07-29-2023 09:45-0400 Diastolic blood pressure 87 mm[Hg] Yelitza Jones Other [facility] Other 07-29-2023 09:45-0400 Systolic blood pressure 124 mm[Hg] Yelitza Jones Other [facility] Other 03-10-2023 10:30-0400 Body height 157.48 cm Yelitza Jones Other [facility] Other 03-10-2023 10:30-0400 Body mass index (BMI) [Ratio] 28.16 kg/m2 Yelitza Jones Other [facility] Other 03-10-2023 10:30-0400 Body temperature 97.6 [degF] Yelitza Jones Other [facility] Other 03-10-2023 10:30-0400 Body weight 69.85 kg Yelitza Jones Other [facility] Other 03-10-2023 10:30-0400 Diastolic blood pressure 78 mm[Hg] Yelitza Jones Other [facility] Other 03-10-2023 10:30-0400 SaO2% (BldA) [Mass fraction] 99 % Yelitza Jones Other [facility] Other 03-10-2023 10:30-0400 Systolic blood pressure 118 mm[Hg] Yelitza Jones Other [facility] [employer] Other Encounters Encounter Date Encounter Type Care Provider Facility Start: 09-15-2024 End: 09-15-2024 Blank Jean Baptiste MD Work Phone: [facility] 210 Comment on above: ADD (attention defic it disorder) without hyperactivity Start: 08-26-2024 End: 08-27-2024 Refill Sammi Estrada [employer] READER Work Phone: [facility] 210 Comment on above: ADD (attention defic it disorder) without hyperactivity Start: 08-19-2024 End: 08-19-2024 Refill Sammi Estrada CH[employer] READER Work Phone: [facility] Comment on above: Intractable chronic migraine without aura and without status migrainosus (CMS/HCC) (Primary Dx) Start: 07-15-2024 End: 07-15-2024 ambulatory SAMMI ESTRADA Not Available Start: 05-12-2024 End: 05-12-2024 ambulatory BELEN B APLING Not Available Start: 05-06-2024 End: 05-06-2024 ambulatory BELEN B APLING Not Available Start: 05-03-2024 End: 05-03-2024 ambulatory BELEN B APLING Not Available Start: 04-01-2024 End: 04-01-2024 ambulatory SAMMI ESTRADA Not Available Start: 03-10-2024 End: 03-10-2024 ambulatory Efrain Jean Baptiste Facility:[facility] Start: 03-04-2024 End: 03-04-2024 ambulatory Umberto Dia Facility:[facility] Start: 03-04-2024 End: 03-04-2024 ambulatory MD Umberto Dia Work Phone: [facility] Work Phone: Start: 03-04-2024 End: 03-04-2024 Departed Referred MD Umberto Dia Work Phone: [facility] Path [facility] Start: 02-11-2024 End: 02-11-2024 ambulatory [facility] Work Phone: Start: 02-11-2024 End: 02-11-2024 Patient encounter procedure [facility] Work Phone: Start: 02-02-2024 Non-patient / Non-visit [facility] Work Phone: Start: 01-01-2024 End: 01-01-2024 ambulatory EFRAIN JEAN BAPTISTE Not Available Start: 12-29-2023 End: 12-29-2023 ambulatory CLINT CESPEDES Not Available Start: 12-25-2023 Bamboo flowsheet Sammi Estrada [employer] READER Work Phone: [facility] Start: 12-25-2023 Bamboo flowsheet Sammi Estrada CH[employer] SCI[employer] READER Work Phone: [facility] Start: 12-25-2023 End: 12-25-2023 ambulatory SAMMI ESTRADA Not Available Start: 12-25-2023 End: 12-25-2023 Patient encounter procedure Sammi Estrada CH[employer] SCI[employer] READER Work Phone: [facility] Comment on above: Intractable chronic migraine without aura and without status migrainosus (CMS/HCC) (Primary Dx); ADD (attention deficit disorder) without hyperactivity Start: 11-14-2023 End: 11-14-2023 ambulatory Luisa Mckeon Other [facility] Other Start: 11-14-2023 Office outpatient vi sit 15 minutes Luisa Mckeon [facility] Start: 11-14-2023 Telephone encounter Yelitza Jones [facility] Start: 11-14-2023 End: 11-14-2023 Patient encounter procedure [facility] Physician [facility] Work Phone: Start: 11-04-2023 End: 11-04-2023 ambulatory Yelitza Jones Other [facility] Other Start: 11-04-2023 Office outpatient vi sit 15 minutes Yelitza Jones [facility] Start: 10-30-2023 End: 10-30-2023 ambulatory EFRAINSATHISH JEAN BAPTISTE Not Available Start: 10-14-2023 End: 10-14-2023 ambulatory Yelitza Jones Other [facility] Other Start: 10-14-2023 Telephone encounter Yelitza Jones [facility] Start: 10-09-2023 End: 10-09-2023 ambulatory Hilary Kari Other [facility] Other Start: 10-09-2023 Office outpatient vi sit 15 minutes Hilaryligia Pierce [facility] Start: 07-29-2023 End: 07-29-2023 ambulatory Yelitza Jones Other [facility] Other Start: 07-29-2023 Encounter for genera l adult medical examination without abnormal findings Yelitza Jones [facility] Start: 07-29-2023 Office outpatient vi sit 15 minutes Yelitza Jones [facility] Start: 07-16-2023 End: 07-16-2023 ambulatory Yelitza Jones Other [facility] Other Start: 07-16-2023 Telephone encounter Yelitza Jones [facility] Start: 05-20-2023 End: 05-20-2023 ambulatory Yelitza Jones Other [facility] Other Start: 05-20-2023 Telephone encounter Yelitza Jones [facility] Start: 03-10-2023 End: 03-10-2023 ambulatory Yelitza Jones Other [facility] Other Start: 03-10-2023 Office outpatient vi sit 15 minutes Yelitza Jones [facility] Start: 12-16-2022 End: 12-16-2022 ambulatory Yelitza Jones Other [facility] Other Start: 12-16-2022 Telephone encounter Yelitza JOYCE [facility] Start: 12-12-2022 (Televisit) Televisit Yelitza Antony [facility] Start: 12-12-2022 End: 12-12-2022 ambulatory Yelitza Jones Other [facility] Other Start: 09-12-2022 End: 09-12-2022 ambulatory MD Yelitza Jones Work Phone: [facility] Work Phone: Start: 09-12-2022 End: 09-12-2022 Patient encounter procedure MD Yelitza Jones Work Phone: [facility] [place] Start: 07-23-2022 Adult health examination Kolby Jones Other [facility] Other Start: 08-18-2021 Encounter for genera l adult medical examination without abnormal findings [facility] Start: 08-14-2021 End: 08-15-2021 ambulatory [facility] Facility:H1 Start: 08-14-2021 End: 08-15-2021 Encounter for general adult medical examination without abnormal findings [facility] Facility:H1 Start: 08-01-[address] YELITZA [...] antibo dy response examination DR YELITZA JONES [facility] Start: 11-13-2020 End: 11-14-[address] YELITZA JONES Facility:H1 Start: 11-13-2020 End: 11-14-2020 Encounter for antibody response examination DR YELITZA JONES Facility:H1 Start: 10-21-2020 End: 10-22-[address] YELITZA JONES Facility:H1 Start: 09-11-2020 End: 09-12-2020 ambulatory TERRI CURRY Facility:H1 Start: 10-28-2017 End: 10-30-2017 Ambulatory YELITZA JONES [place] Procedures Date Procedure Procedure Detail Performing Clinician Start: 02-11-2024 Quick Strep (POC) Start: 10-30-2017 DISCHARGE PATIENT KOLBY JONES Start: [...] Start: 10-29-2017 UA W/REFLEX CULTURE MAR GENNY KAREN Start: 10-29-2017 URINE CULTURE CLEAN CATCH YELITZA JONES Start: 10-29-2017 TELEMETRY MONITORING MA SILVER JONES Start: 10-28-2017 ADVANCE DIET ALEXE RATED (NURSING COMMUNICATION) YELITZA JONES Start: 10-28-2017 FULL CODE YELITZA MILLER UN Start: 10-28-2017 INITIATE OXYGEN THER APY PROTOCOL YELITZA JONES Start: 10-28-2017 INTAKE AND OUTPUT KOLBY A KAREN Start: 10-28-2017 REASON FOR NO MECHAN ICAL VTE PROPHYLAXIS YELITZA JONES Start: 10-28-2017 VITAL SIGNS YELITZA SPANN Start: 10-28-2017 PATIENT STATUS (FROM ED OR OR/PROCEDURAL) YELITZA JONES Start: 10-28-2017 TRANSFER PATIENT YELITZA JONES Start: 10-28-2017 IP CONSULT TO DETECTIVE [place] DENIS SILVER JONES Start: 10-28-2017 BASIC METABOLIC PANEL Melva JONES Start: 10-28-2017 CBC WITH AUTO DIFFERENTIAL YELITZA JONES Start: 10-28-2017 INSERT PERIPHERAL IV DENIS JONES Start: 07-01-2013 General examination of patient Yelitza Jones Other Hyperlipidemia screening Demetra Jones Other Plan of Treatment Date Care Activity Detail Author Start: 10-22-2024 End: 10-22-2024 Patient encounter procedure 10/22/2024 10:15 AM EST Procedure Visit [facility] [address] [place] [address] Sammi Estrada, CHRISTIAN SCIENCE READER [address] [facility] [address] [address] [facility] Start: 09-16-2024 End: 09-16-2024 Patient encounter procedure 09/16/2024 10:20 AM EST Office Visit [facility] [address] [place] [address] Efrain Jean Baptiste MD [address] [place] [address] [facility] Start: 07-26-2024 Influenza vaccination Influenza Vacc ine (#1) [facility] Comment on above: Postponed from 07/11 (Patient Refused) Start: 04-01-2024 End: 04-01-2024 Patient encounter procedure 04/01/2024 1:00 PM EDT Procedure Visit [facility] [address] [place] [address] Sammi Estrada CHRISTIAN SCIENCE READER [address] [place] [address] [facility] Start: 01-01-2024 End: 01-01-2024 Patient encounter procedure 01/01/2024 10:30 AM EST Office Visit [facility] [address] [place] [address] Efrain Jean Baptiste MD [address] [facility] [address] [id number] [facility] Start: 12-29-2023 End: 12-29-2023 Clinical Support 12/29/2023 1:00 PM EST Clinical Support [facility] [address] [place] [address] [facility] Start: 2023 Screening for malign ant neoplasm of breast Mammogram [facility] Start: 07-11-2023 Influenza vaccination Influenza Vacc ine (#1) [facility] Start: 09-12-2022 MR Unspecified body region [facility] Start: 09-12-2022 MRI of head MR head/brain wo/w con [facility] Start: 2013 Screening for malign ant neoplasm of cervix [facility] Start: 2004 Screening for malign ant neoplasm of cervix Pap Smear [facility] Immunizations Immunization Date Immunization Notes Care Provider Fa cility 08-10-2020 influenza virus vaccine, split virus (incl. purified surface antigen) Yelitza Joens Other [facility] Other 08-10-2020 influenza virus vaccine, unspecified formulation [facility] 08-09-2020 influenza, seasonal, injectable, preservative free Sammi Estrada CHRISTIAN SCIENCE READER Work Phone: [facility] 08-09-2020 influenza virus vaccine, unspecified formulation Sammi Estrada CHRISTIAN SCIENCE READER Work Phone: [facility] 05-17-2019 pneumococcal polysaccharide vaccine, 23 valent Sammi Estrada CHRISTIAN SCIENCE READER Work Phone: [facility] 03-10-2015 hepatitis B vaccine, adult dosage Sammi Estrada CHRISTIAN SCIENCE READER Work Phone: [facility] 11-09-2014 hepatitis B vaccine, adult dosage Sammi Estrada CHRISTIAN SCIENCE READER Work Phone: [facility] 09-02-2014 hepatitis B vaccine, adult dosage Sammi Estrada CHRISTIAN SCIENCE READER Work Phone: [facility] 09-02-2014 tetanus toxoid, redu sonia diphtheria toxoid, and acellular pertussis vaccine, adsorbed Sammi Estrada CHRISTIAN SCIENCE READER Work Phone: [facility] Healthcare Payers Date Payer Category Payer Self-pay [id number] 2022 Private Health Insurance [facility] PL[facility] [id number] 2022 Unknown [id number]. 1.13.693. 2.7.3.977306.315 2022 [employer] [id number] 2.840.1.847551.19 1983 Unknown [id number] 2.16840.1.297212.3.579. 2.593 1983 Unknown [id number] 2.16840.1.995019.3.579. 2.593 1983 Unknown [id number] 2.16.840.1.398643.3.579. 2.593 1983 Unknown [id number] 2.16840.1.619340.3.579. 2.593 1983 Unknown [id number] 2.840.1.706178.3.579. 2.593 1983 Unknown [id number] 2.16840.1.664306.3.579. 2.593 1983 Unknown [id number] 2.840.1.619334.3.579. 2.593 1983 Unknown [id number] 2.840.1.817127.3.579. 2.593 1983 Unknown [id number] 2.840.1.865486.3.579. 2.593 1983 Unknown [id number] 2.840.1.946043.3.579. 2.593 1983 Unknown [id number] 840.1.759014.3.579. 2.593 1983 Unknown [id number] 2.840.1.571450.3.579. 2.593 1983 Unknown [id number] 2840.1.569432.3.579. 2.593 1983 Unknown [id number] 2.840.1.911444.3.579. 2.1259 1983 Unknown [id number] 840.1.763457.3.579. 2.1259 1983 Unknown [id number] .840.1.506678.3.579. 2.1259 1983 Unknown [id number] 2.840.1.280067.3.579. 2.1259 1983 Unknown [id number] 2.16840.1.559818.3.579. 2.1259 1983 Unknown [id number] 2840.1.677515.3.579. 2.1259 1983 Unknown [id number] 840.1.268918.3.579. 2.1259 1983 Unknown [id number] 2.16.840.1.237934.3.579. 2.1259 1983 Unknown [id number] 2.16.840.1.353820.3.579. 2.1259 11-10-1961 Private Health Insurance [id number] Unknown [id number] 2.16.840.1.751767.3.579. 2.593 Unknown [facility] [id number] Unknown [id number] 2.16.840.1.798785.19 Unknown [id number] 2.16.840.1.934063.3.579. 2.531 Unknown [id number] 2.16.840.1.852773.3.579. 2.531 Social History Date Type Detail [facility] Work Phone: Start: 1985 Sex Assigned At Female [facility] Start: 10-30-2023 End: 05-12-2024 Sex Assigned At [facility] [employer] Other Start: 06-09-2023 End: 02-11-2024 Tobacco smoking status NHIS Never smoked tobacco [facility] Start: 06-09-2023 Tobacco use and exposure Smokeless tobacco non-user [facility] Start: 10-30-2023 End: 12-25-2023 Alcohol intake Current drinker of alcohol (finding) [facility] Start: 10-30-2023 End: 05-12-2024 Alcohol intake [facility] Start: 06-09-2023 Alcohol Comment Caffeine intak e: more than 4 cups per day coffee, soda [facility] Start: 09-04-2023 Gender identity Identifies as female gender (finding) [facility] Start: 05-12-2024 Alcoholic beverage intake Ex-drinker (finding) [facility] Clinical Notes 12-12-2022 to 12-25-2023 Sammi Estrada, CHRISTIAN SCIENCE READER - 12/25/2023 1:30 PM EST Note Date [...] work. 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 She has to [...] TRANSVERSE 12/16/2016 & tube removal HYSTERECTOMY 10/2017 [place] [facility]NAG[facility] Procedure:Clomid 50 mg i daily;Disease:Infertility [...] migraine without aura and without status migrainosus ([facility]/HCC) ADD (attention deficit disorder) without hyperactivity - [...] with 70% isopropanol. Specialty pharmacy Lot # [id number] Dilution 200 units diluted into 4mL = 5 units per 0.1mL Procedure Procerus 5 units Ensemble Member, L 5 units Ensemble Member, R 5 units Frontalis, L 10 units [...] without status migrainosus - G43.719 Procedure Codes 54944 Chemodenervation Of Muscle Neck, Modifiers: 50 35770 Destroy Nerve, Face Muscle, Modifiers: 50 , 51 J0585 Botulinum toxin a per unit, Units: 200.00 A4209 SYRINGE W/NEEDLE STERILE 5 CC/GT EA A4206 1 CC sterile syringe&needle, Units: 4.00 A4216 Sterile water/saline, 10 ml Follow Up 2.5 months appointment; 3 months BTX documented in this encounter [facility] 11-14-2023 Evaluation note Encounter Date Diagnosis Assessment Notes Nov, Chest congestion (ICD-10 - R09.89) Nov, Influenza B (ICD-10 - J10.1) Influenza: adult home care material was printed Drink plenty fluids, get plenty of rest. Take Tylenol or Motrin for aches pains or fevers. Follow-up with your family physician if no improvement in 2 to 3 days [facility] Other 12-26-2023 Evaluation note* Encounter Date Diagnosis Assessment Notes Treatment Notes Treatment Clinical Notes Oct, Bronchitis (ICD-10 - J40) Take antibiotic as directed. If develop wheezing, chest tightness, itching, bad cough, blue skin color, seizures, swelling of face, lips, tongue, or throat report to ED. [facility] Other 11-30-2023 Evaluation note* Encounter Date Diagnosis [...] difficulty breathing, inability to eat or drink. 30 Nov, 2023 Acute right otitis media (ICD-10 - H66.91) [facility] Other 09-19-2023 Evaluation note* Encounter Date Diagnosis Assessment Notes Treatment Notes Treatment Clinical Notes Jul, Wellness examination (ICD-10 - Z00.00) Not a wellness exam, but requests wellness labs done for this year. Jul, Disorder of right eustachian tube (ICD-10 - H69.91) Advised finishing steroids. Trial of lower dose sudafed with flonase, which she has not started. No OM seen. Pt understands [facility] Other 09-06-2023 Evaluation note* Encounter Date Diagnosis Assessment Notes Treatment Notes Treatment Clinical Notes Jul, Pharyngitis, unspecified etiology (ICD-10 - J02.9) [facility] Other 05-01-2023 Evaluation note* Encounter Date Diagnosis [...] she easily has this problem on antibiotics. [facility] Other 02-06-2023 Evaluation note* Encounter Date Diagnosis Assessment Notes Treatment Notes Treatment Clinical Notes Dec, Acute non-recurrent maxillary sinusitis (ICD-10 - J01.00) [facility] Other 02-02-2023 Evaluation note* Encounter Date Diagnosis Assessment Notes Treatment Notes Treatment Clinical Notes Dec, Acute non-recurrent maxillary sinusitis (ICD-10 - J01.00) Testing for influenza as her negative COVID tests were not conclusive at home. Patient prefers to wait. Strongly suspect she has strep throat. Updated medication and allergy list in chart. Patient will call if her symptoms fail to improve [facility] Other Evaluation noteNo assessment information available [facility] Work Phone: Evaluation noteNo InformationNort [facility] Other Evaluation note* Diagnosis Intractable chronic migraine without aura and without status migrainosus (CMS/HCC)- Primary ADD (attention deficit disorder) without hyperactivity Attention deficit disorder without mention of hyperactivity documented in this encounter [facility] HealthcareEvaluation note* Diagnosis Onset Date Resolution Status Right otitis media noneactiv e Sore throat noneactive [facility] Work Phone: Evalunidku note* Diagnosis Intractable chronic migraine without aura and without status migrainosus (CMS/HCC)- Primary documented [facility] encounter [facility]* Diagnosis ADD (attention deficit disorder) without hyperactivity Attention deficit disorder without mention of hyperactivity documented [facility] this encounter [facility] Diagnosis ADD (attention deficit disorder) without hyperactivity Attention deficit disorder without mention of hyperactivity documented in this encounter [facility] HealthcareHistory general Narrative - Reported* Type Description Date Medical History proteinuria Medical History CKD (chronic kidney disease) Medical History anxiety Medical History migraine headache Surgical History C section, x2 Surgical History bilateral salpingectomy 2016 Surgical History kidney biposy 02/2017 Surgical History hysterectomy Hospitalization History child Hospitalization History low k+ level 2003 [facility] Other History general Narrative - ReportedNossm rehab [facility] Other Summary Purpose Family History Relationship Condition Age at Onset Recorded Date/T mil Not Specified Diabetes mellitus Unknown Hypertension Unknown Advance Directives Advance Directive Response Recorded Date/ [...] section and content) DATE CREATED AUTHOR 05/05/2018 [facility] DATE CREATED AUTHOR AUTHOR'S ORGANIZ ATION 02/13/2021 [facility] DATE CREATED AUTHOR AUTHOR'S ORGANIZ ATION 08/19/2021 [facility] DATE CREATED AUTHOR AUTHOR'S ORGANIZ ATION 12/03/2021 [facility] DATE CREATED AUTHOR AUTHOR'S ORGANIZ ATION 03/18/2024 [facility] DATE CREATED AUTHOR AUTHOR'S ORGANIZ ATION 07/17/2024 [facility] Special[facility] EPIC Care Teams (unrecognized sec tion and content) Team Status: Inactive Member Role Status Dates Yelitza Jones MD Primary Care Provider Active Sammi Estrada APRN CHRISTIAN SCIENCE READER-C Attending Provider A ctive Team Status: Active [...] FOR VISIT (unrecogniz ed section and content) Reason Onset Date Comments Med Refill 08/19/2024 Reason Onset Date Comments Med Refill 08/26/2024 Reason Onset Date Comments Med Refill 09/15/2024 FOR RECORDS PERTAINING TO PATIENTS WHO ARE [...] BE BASED ON THE PRIMARY CLINICAL RECORDS. [facility]. provides no warranty or guarantee of the accuracy or completeness of information in this document.
[2024-09-17 12:48] LABS: Anion Gap 12.7; BUN Creatinine Ratio 14.7; Calcium 8.8 mg/dL (8.5-10.1); Carbon Dioxide 25.6 mmol/L (21.0-32.0); Chloride 104 mmol/L (98-107); Estimated GFR (African America >60 (>=60 mL/min/1.73m^2); Estimated GFR (Non-African Ame >60 (>=60 mL/min/1.73m^2); Glucose 89 mg/dL (74-106); Potassium 4.3 mmol/L (3.5-5.1); Sodium 138 mmol/L (136-145)
== END 2024-09-17 11:23 | disposition home or self-care (01) ==
LOC: LAB 11:27
PROVIDERS: PCP Family Medicine; Visit Provider Family Medicine
DX: Z00.00 Encounter for general adult medical examination without abnormal findings (principal); N18.9 Chronic kidney disease, unspecified
CPT/HCPCS: 36415; 80048

== ENCOUNTER 2024-09-17 11:31 | Outpatient (OUT) | payer BC, SELFPAY ==
[2024-09-20 17:10] LABS: Antinuclear Antibodies, IFA Negative (.)
== END 2024-09-17 11:32 | disposition home or self-care (01) ==
LOC: LAB 11:33
PROVIDERS: PCP Family Medicine; Visit Provider Psychiatry & Neurology Neurology
DX: Z00.00 Encounter for general adult medical examination without abnormal findings (principal); N18.9 Chronic kidney disease, unspecified; G37.9 Demyelinating disease of central nervous system, unspecified
CPT/HCPCS: 36415; 80048; 82306; 86038; 86664; 86665

== ENCOUNTER 2025-09-08 16:25 | Outpatient (OUT) | payer BC, SELFPAY ==
--- OUTSIDE RECORDS SUMMARY | 2020-12-21 07:30 | XMS_ITS | Continuity of Care Document ---
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 [address] [place], [place], [id number], . tel:[phone] [facility], [address] [place], [place], [id number], tel:[phone] COVID ECHD No Information Prieto Couch. [address] [place], [place], [id number], . tel:[phone] Family History Family Member Type Diagnosis Age At Onset No Information Immunizations Vaccine Date Status Comments Moderna COVID administered Source: New Im munization Record Moderna COVID administered Source: New Im munization Record Payers Payer name Insurance type Covered democrat ID Authoriza tion(s) [facility] CI [id number] [facility] CI [id number] [facility] CI [id number] Social History Type Description Quantity Date Captured [...]
--- NOTE | 2025-09-08 16:28 | MM_ITS ---
Patient Name: CELI JOE MR#: [id number] : 1985 Exam Date: 09/08/2025 Ordering Doctor: DR YELITZA JONES M.D. RADIOLOGY REPORT PROCEDURE: MM TOMOSYNTHESIS SCREENING BI COMPARISON: MM POST BIOPSY RT, 03/04/2024. MM TOMOSYNTHESIS DIAGNOSTIC BI, 01/30/2024. INDICATIONS: Screening for malignant neoplasm Calculator Name NCI Breast Cancer Risk Assessment Tool 5 Year Breast Cancer Risk 1.10% Lifetime Breast Cancer Risk 13.40% Personal Breast Cancer No Personal Ovarian Cancer No Treatments None Family Cancers None LOCATION: [facility] BREAST COMPOSITION: The breasts are extremely dense, which lowers the sensitivity of mammography. FINDINGS: RIGHT BREAST: No significant suspicious finding. LEFT BREAST: No significant suspicious finding. DIAGNOSTIC CATEGORY 1--NEGATIVE. RECOMMENDATIONS: ROUTINE MAMMOGRAM AND CLINICAL EVALUATION IN 12 MONTHS. Dictated by: Jarrell Harp DO on 09/09/2025 at 10:00 Approved by: Jarrell Harp DO on 09/09/2025 at 10:02
--- OUTSIDE RECORDS SUMMARY | 2025-09-08 16:29 | XMS_ITS | Encounter Summary ---
Author Organization [facility] Address [address] [place] [address] Care Team Providers Care Solid Propellant Processor Name Role Phone Dora Ferraro MD Primary Care Provider [phone] Reason for Visit * ReasonOnset DateCommentsMed Lnwkok7409/04/2025 Encounter Details DateTypeDepartmentCare Team (Latest Contact Info)Fkpqjookuvl73/26/2025Refill [facility] [address] [place] [phone] Nixon Jean Baptiste MD [address] [facility] [address], [place] [id number] Intractable chronic migraine without aura and without status migrainosus; ADD (attention deficit disorder) without hyperactivity Social History Tobacco UseTypesPacks/DayYears UsedDateSmoking Tobacco: NeverSmokeless Tobacco: NeverAlcohol UseStandard Drinks/WeekCommentsNot Currently2 (1 standard drink = 0.6 oz pure alcohol)Caffeine intake: more than 4 cups per day coffee, soda CommentsNoSex and Gender InformationValueDate RecordedSex Assigned at EtujqFxmclj98/26/2023 3:23 PM EDTLegal KdcWeqfyr12/15/2023 6:59 PM EDTGender GxgrvkdbGbkeya29/26/2023 3:23 PM EDTSexual OrientationNot on filedocumented as of this encounter Miscellaneous Notes * Telephone Encounter - Sammi Alanis NP - 09/05/2025 10:23 AM EDT OARRS reviewed. documented in this encounter Plan of Treatment DateTypeDepartmentCare Team (Latest Contact Info)Vwwdnjlzvwg87/04/2025 10:45 AM ESTProcedure Visit [facility] [address] [facility] [address] [place] [address] Sammi Alanis NP [address] [facility] [address] [address] documented as of this encounter Visit Diagnoses Diagnosis Intractable chronic migraine without aura and without status migrainosus ADD (attention deficit disorder) without hyperactivity Attention deficit disorder without mention of hyperactivity documented in this encounter Care Teams Team MemberRelationshipSpecialtyStart DateEnd Date Dora Ferraro MD PCP - GeneralFamily Hzemkada30/7/24documented as of this encounter
--- OUTSIDE RECORDS SUMMARY | 2025-09-08 16:29 | XMS_ITS | Clinical Summary ---
Author Organization [facility] Healthcare Address [address] [place] [address] Care Team Providers Care Data Entry Supervisor Name Role Phone Dora Ferraro MD Primary Care Provider [phone] Allergies Active AllergyReactionsCriticalityNoted IsxpFiunqohhTregojuspzvLiiwGuq16/31/2023 Ttohsrjfmmxgw23/03/2024 Other Reaction(s): Hives UdsdelPoyewmc50/09/2021 Other Reaction(s): kidney issues Uefwztedzgy07/03/2024 Other Reaction(s): Hives Medications MedicationSigDispense QuantityRefillsLast FilledStart DateEnd DateStatus sertraline (Zoloft) 50 MG tablet Indications:Depression, unspecified depression typeTake 1 tablet (50 mg) by mouth Daily 90 tablet /[id number] Botox 200u vial IJ Soln 200 units injection Indications:Intractable chronic migraine without aura and without status migrainosusAS DIRECTED 155 UNITS INJECTION EVERY 90 DAYS 1 each 5Active erenumab (Aimovig) 140 MG/ML injection Indications:Intractable chronic migraine without aura and without status migrainosusInject 1 mL (140 mg) under the skin every 28 (twenty-eight) days 3 mL 309/[id number] Ubrogepant (Ubrelvy) 100 MG tablet Indications:Intractable chronic migraine without aura and without status migrainosusTake 1 tablet by mouth if needed (1 po onset migraine may repeat in 2 hours max 200 mg per dya) 16 tablet 111/2162486Active amphetamine-dextroamphetamine (Adderall) 30 MG tablet Indications:ADD (attention deficit disorder) without hyperactivityTake 1 tablet (30 mg) by mouth Daily 30 tablet tive Ubrogepant (Ubrelvy) 100 MG tablet Indications:Intractable chronic migraine without aura and without status migrainosusTake 1 tablet by mouth if needed (1 po onset migraine may repeat in 2 hours max 200 mg per dya) 16 tablet 110Discontinued(Reorder) amphetamine-dextroamphetamine (Adderall) 30 MG tablet Indications:ADD (attention deficit disorder) without hyperactivityTake 1 tablet (30 mg) by mouth Daily 30 tablet Discontinued(Reorder) Active Problems ProblemNoted DateDiagnosed DatePain of right ogegep7609/16/2024DD (attention deficit disorder) without cplahmjkauddo27/23/2024Essential hypertension 01/04/20242038Yazgvyuxhahj49/25/2024orderline high blood fetgerat87/25/2024hronic migraine without aura, not intractable, without status eznfwxqccet67/31/2023 Demyelinating disease of central nervous cpandj0506/09/2023Internal derangement of right knee06/09/2023Intractable chronic migraine without aura06/09/2023Nephrotic fodzhrjf71/31/2023Small fiber hkjkhgzjax13/31/2023Vitamin D apnwkpfvzi10/31/2023 Nausea vomiting and rseycifd48/20/2017FSGS (focal segmental glomerulosclerosis) 07/15/2017Hypotension due to drugs07/15/2017 Encounters DateTypeDepartmentCare SouuZtuwjozvjuv90/26/2025Refill [facility] [address] [facility] [address] [place] [place] [phone] Nixon Jean Baptiste MD Intractable chronic migraine without aura and without status migrainosus; ADD (attention deficit disorder) without sqzfxbgndaapw86/23/2025Refill [facility] [address] [place] [address] [place] [phone] Nixon Jean Baptiste MD ADD (attention deficit disorder) without djpdjhtassscs39/05/2025 12:15 PM EDT Procedure Visit [facility] [address] [place] [address] Sammi Alanis NP Intractable chronic migraine without aura and without status migrainosus (Primary Dx)07/15/2025amboo flowsheet [facility] [address] [facility] [place] [phone] Sammi Alanis NP 07/15/20251409Efgbsz53/25/2025Refill [facility] [address] [place] [phone] Sammi Alanis NP ADD (attention deficit disorder) without wyoyfancvuypp15/06/2025Refill [facility] [address] [place] [address] Sammi Alanis NP Intractable chronic migraine without aura and without status migrainosusfrom Last 3 Months Immunizations ImmunizationAdministration DatesNext DueHep B, adult03/10/2015,11/09/2014, 09/02/2014Influenza, seasonal, injectable, preservative free08/09/2020 Pneumococcal Polysaccharide WJVX26622043Rrnu50/24/2014 Family History Medical HistoryRelationNameCommentsDiabetesBrotherCOPDFatherDiabetesFather HypertensionFatherDiabetesMaternal GrandfatherHeart diseaseMaternal Grandfather Lung diseaseMaternal GrandfatherOther cancerMaternal GrandfatherBladderDiabetes Maternal GrandmotherLung cancerMaternal GrandmotherClotting disorderMotherin legsDepressionMotherDiabetesMotherHypertensionMotherDiabetesPaternal Grandfather Kidney diseasePaternal GrandfatherLung cancerPaternal GrandfatherDiabetes Paternal GrandmotherHypertensionPaternal GrandmotherStrokeSiblingRelationName HmpzkkZxcjsnuqRtpjtyrJjwtpdjpBjhdyi3ZsxfizUikfaZsihzbub GrandfatherDeceased Maternal GrandmotherDeceasedMotherAlivePaternal GrandfatherDeceasedPaternal GrandmotherDeceasedSiblingAlive Social History Tobacco UseTypesPacks/DayYears UsedDateSmoking Tobacco: NeverSmokeless Tobacco: Never Tobacco Cessation:Counseling Given: Not Answered Alcohol UseStandard Drinks/WeekCommentsNot Currently2 (1 standard drink = 0.6 oz pure alcohol)Caffeine intake: more than 4 cups per day coffee, soda CommentsNoSex and Gender InformationValueDate RecordedSex Assigned at Brpkrb1409/04/2023 3:23 PM EDTLegal ScmSkmgbc23/15/2023 6:59 PM EDTGender Identity Hdzhgd2009/04/2023 3:23 PM EDTSexual OrientationNot on file Last Filed Vital Signs Vital SignReadingTime TakenCommentsBlood Hugvjgxv351/8009 12:11 PM EDT Xsmtn112909/17/2023 2:11 PM ESTTemperature--Respiratory Qkfa590607/15/2025 12:11 PM EDTOxygen Nqsvmusuak10%07/15/2025 12:11 PM EDTInhaled Oxygen Concentration-- Moocqb55.3 kg (133 lb)07/15/2025 12:11 PM FMXOwkpbm014 cm (5' 3 )12/09/2024 3:30 PM ESTBody Mass Index23.56012/09/2024 3:30 PM EST Plan of Treatment DateTypeDepartmentCare Team (Latest Contact Info)Rpapndyjbhr29/04/2025 10:45 AM ESTProcedure Visit [facility] [address] [facility] [address] [place] [address] Sammi Alanis, LIFE TE[employer]ER [address] [facility] [address] [place] [address] Health MaintenanceDue DateLast ItnlZwwvdvgmPppxqhnyf61/20/2023Influenza Vaccine (#1)509/04/2024, 08/09/2020 Insurance * Guarantor: Latisha Madrid AAccount TypeRelation to PatientDate of BirthPhone Billing AddressPersonal/BmrldbYhqm1983 [id number] [phone] Care Teams Team MemberRelationshipSpecialtyStart DateEnd Date Dora Ferraro MD PCP - GeneralFamily Wrzrmtci61/7/24
--- OUTSIDE RECORDS SUMMARY | 2025-09-08 16:31 | XMS_ITS | CCD ---
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 Name Role Phone YELITZA JONES Unavailable Unavailable [...] Admitting Unavailable JAYSON MEYER Consulting Unavailable Joel Ayala Consulting Unavailable JONES, DR YELITZA Ma Primary Care Unavailable JAYSON MEYER Attending Unavailable JAYSON MEYER Admitting Unavailable TERRI CURRY Attending Unavailable KAREN, DR YELITZA Ma Primary Care Unavailable TERRI CURRY Admitting Unavailable [place], DR DIANA Beckwith Consulting Unavailable TERRI CURRY [...] Unavailable MD Yelitza Jones Primary Care Provider [phone] JAGDISH Estrada Attending Provider Yelitza Jones Unavailable Hilary Pierce Unavailable Luisa Mckeon Unavailable Unavailable Primary Care Provider UnavailMD Umberto Bruce Attending Provider Yelitza Jones MD Primary Care Provider Umberto Jung Admitting Unavailable Umberto Jung Attending Unavailable Aleida Leiva Admitting Unavailable Aleida Leiva Attending Unavailable Yelitza Jones Primary Care Unavailable Yelitza Jones Primary Care Unavailable Efrain Jean Baptiste Admitting Unavailable Efrain Jean Baptiste Attending Unavailable Yelitza Jones MD Primary Care Provider SAMMI ESTRADA Attending Unavailab CLINT Nur Attending Unavailable EFRAIN JEAN BAPTISTE Attending Unavailable SAMMI ESTRADA Attending Unavailab SAMMI Cummins Attending Unavailab le Allergies Allergy ClassificationReported Allergen(s)Allergy TypeDate of OnsetReaction(s) Facility (1 source)NSAIDsDrug allergy (disorder)[facility] (20 sources)NSAIDsPropensity to adverse qmwnrbplu87-41-9495JqiukviRorho TappnGo Other (11 sources)PenicillinDrug AllergyPiedmont Eastside Medical CenterJumpStart Other (20 sources)SUMAtriptanDrug Trljams27-13-8281WgubgabAdena Fayette Medical Center (20 sources)metroNIDAZOLEDrug Qexjdrt93-10-7052GfozeidAdena Fayette Medical CenterComment on above:Onset Date: 01/09/2018 (5 sources)PseudoephedrineDrug Uzxuajz67-94-4722PirfxfaHwakr TappnGo Other (1 source)Allergies ReconciledPropensity to adverse reactionsLiberty Hospital TappnGo Other (1 source)patient allergy list reviewed by nurse or physiciaPropensity to adverse -09-0107Piffviw:[facility] TappnGo Other (20 sources)AmoxicillinDrug Wbiqvun29-94-2917AozyAGCD Healthcare (4 sources)Penicillins; Translations: [Penicillins]Allergy to substance 32-33-2493BzupoNhlvepyrhMarietta Osteopathic Clinic (4 sources)NSAIDS (Non-Steroidal Anti-Inflamma; Translations: [NSAIDS (Non- Steroidal Anti-Inflamma]Allergy to uzrwyesds42-91-7226Lucockc Reaction, kidney diseasePaulding County Hospital (1 source)metroNIDAZOLEDrug Upmzrfa36-35-0047JvevqorujPaulding County Hospital Repository (1 source)SUMAtriptanDrug Rutpsov02-02-5355NtlghufefPaulding County Hospital Repository Medications Current Medications MedicationDrug Class(es)DatesSig (Normalized)Sig (Original)[id number] 200 actuat albuterol 0.09 mg/actuat metered dose inhaler (2 sources)beta2-Adrenergic AgonistStart: 40-53-9115yzgh 1 puff(s) by inhalation every six hours as needed for wheezingalbuterol HFA 90 mcg/act inhaler INHALE 1 PUFF EVERY 6 HOURS NEEDED FOR SHORTNESS OF BREATH OR WHEEZING 0 10/10/2023 ActiveALPRAZolam 0.25 mg oral tablet (2 sources)BenzodiazepineStart: 49-51-2193fqxs 1 tablet by mouth twice daily as neededALPRAZolam 0.25 MG 1 tablet Orally bid prn for 10 days May, Active amphetamine aspartate 7.5 mg / amphetamine sulfate 7.5 mg / dextroamphetamine saccharate 7.5 mg / dextroamphetamine sulfate 7.5 mg oral tablet (20 sources)Central Nervous System StimulantStart: 12-06-2024 End: 97-46-0683udhx 1 tablet by mouth once dailyamphetamine-dextroamphetamine (Adderall) 30 MG tablet Indications: 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 Take 1 tablet (30 mg) by mouth Daily 30 tablet 09/05/2025 10/05/2025 ActiveStart: 07-27-2024 End: 82-55-7006feir 1 tablet by mouth once dailyamphetamine-dextroamphetamine (Adderall) 30 MG tablet Indications: 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 Do not crush or chew.. 30 capsule 07/26/2024 07/27/2024 DiscontinuedStart: 06-24-2024 End: 34-59-8144amoq 1 capsule by mouth every twenty-four hours in the morning amphetamine-dextroamphetamine XR (Adderall XR) 30 MG 24 hr capsule Indications: ADD (attention deficit disorder) without hyperactivity Take 1 capsule (30 mg) by mouth in the morning. Do not crush or chew.. 30 capsule 06/24/2024 07/23/2024 Discontinued (Reorder)Start: 12-01-2023 End: 45-13-2689ugvn 1 capsule by mouth every twenty-four hours in the morning amphetamine-dextroamphetamine XR (Adderall XR) 30 MG 24 hr capsule Indications: ADD (attention deficit disorder) without hyperactivity Take 1 capsule (30 mg) by mouth in the morning. Do not crush or chew.. 30 capsule 0 12/01/2023 12/25/2023 DiscontinuedAtogepant (Qulipta) 60 MG tablet (2 sources)Start: 12-09-2024 End: 71-54-0747ijgh 1 tablet by mouth once dailyAtogepant (Qulipta) 60 MG tablet Indications: Intractable chronic migraine without aura and withoutstatus migrainosus (CMS/HCC) Take 1 tablet by mouth Daily 30 tablet 11 12/09/2024 01/08/2025 Activedexamethasone 2 mg oral tablet (4 sources)CorticosteroidStart: 23-01-3040jphCJNGEqqmkq (Decadron) 2 MG tablet Indications: Demyelinating disease of central nervous system (HCC) (CMS/HCC) 2mg 3 pills po X3 days,2 pills po daily X3 days , then 1 pill po daily X3 days then stop 9 days 18 pills 18 tablet 1 07/22/2023 Active1 ml erenumab-aooe 140 mg/ml auto-injector (3 sources)Start: 07-19-2025 End: 23-95-0125plizfh 1 mL by subcutaneous injection onceerenumab (Aimovig) 140 MG/ML injection Indications: Intractable chronic migraine without aura and wi thout status migrainosus Inject 1 mL (140 mg) under the skin every 28 (twenty- eight) days 3 mL 3 07/19/2025 07/19/2026 Activemodafinil 200 mg oral tablet (5 sources)Sympathomimetic-like Agenttake 1 tablet by mouth every twenty-four hoursModafinil 200 MG 1 tablet once a day ActiveModafinil ActiveNaltrexone (19 sources)Opioid AntagonistStart: 07-15-2024 End: 29-97-6414ahjk 1 mg by mouth once dailyNaltrexone HCl powder Indications: Autoimmune disease (CMS/HCC) Take 1 mg by mouth Daily 30 g 07/15/2024 08/14/2024 ActiveStart: 02-02-2024 End: 63-35-3217ozxy 1 tablet by mouth once dailyNaltrexone 50 mg tablet Discontinued 50 MG PO Daily February 01, 2024 11:00pm September 17, 2024 10:40am take 3 mg by mouth in the morningnaltrexone (Depade) 50 MG tablet Take 3 mg by mouth in the morning. 0 ActiveNaltrexone Activesertraline 50 mg oral tablet (20 sources)Serotonin Reuptake InhibitorStart: 02-02-2024 End: 51-41-9541wxod 1 tablet by mouth once dailysertraline (Zoloft) 50 MG tablet Indications: Depression, unspecified depression type Take 1 tablet(50 mg) by mouth Daily 90 tablet 3 12/05/2024 12/05/2025 ActiveStart: 03-72-0687xfdymxejen (Zoloft) 50 MG tablet Indications: Migraine, unspecified, not intractable, without status migrainosus (CMS/HCC) TAKE 1 AND 1/2 TABLETS BY MOUTH EVERY DAY 135 tablet 2 05/09/2023 Activetake 1 tablet by mouth every twenty-four hours Zoloft 25 MG 1 tablet Orally Once a day Activetopiramate 25 mg oral tablet (14 sources)Start: 10-09-2024 End: 54-40-5636swqo 1 tablet by mouth in the morningtopiramate (Topamax) 25 MG tablet Indications: Chiari malformation type I (CMS/HCC) , Chronic migraine without aura, not intractable, without status migrainosus (CMS/HCC) Take 1 tablet (25 mg) by mouth in the morning and 1 tablet (25 mg) before bedtime. 180 tablet 3 10/09/2024 03/29/2025 DiscontinuedStart: 33-39-0720djid 1 tablet by mouth once dailyTopiramate (Topamax) 25 mg tablet Active 25 MG PO Daily September 17, 2024 12:00am Completed/Discontinued Medications MedicationDrug Class(es)DatesSig (Normalized)Sig (Original)azithromycin 250 mg oral tablet (15 sources)Macrolide AntimicrobialStart: 02-11-2024 End: 67-04-2379lmpb 2 tablets by mouth once daily, then take 1 tablet by mouth once dailyAzithromycin (Zithromax Z-Alexy) 250 mg tablet Discontinued 250 MG PO Daily 04 14February 10, 2024 11:00pm September 17, 2024 10:40am take 2 tabs today and 1 daily for the next 4 daysStart: 31-84-9203Smwxtafboeay 250 MG as directed Orally 2 tabs po today, then 1 tab daily x 4 more days for 5 Oct, Active Start: 34-98-6142Xgnhw: 95-07-0324Nxovnspyqmuz 250 MG as directed Orally 2 tabs po today, then 1 tab daily x 4 more days for 5 Dec, Active onabotulinumtoxina 200 unt injection (20 sources)Acetylcholine Release InhibitorStart: 07-15-2025 End: 26-73-3732fotgiqicrizwcmvglH (Botox) injection 200 UnitsStart: 07-15-2025 End: 43-44-8441sekqdy 200 [IU] by intramuscular injection [id number] Units, Intramuscular, Once, On Fri07/15/25 at 1300, For 1 dose, Charging context for this clinic-administered medication: Medically Necessary/InsuranceStart: 03-24-2025 End: 58-44-1924wyparjjbljdnorcrlW (Botox) injection 200 UnitsStart: 03-24-2025 End: 32-20-4959zphffu 200 [IU] by intramuscular injection [id number] Units, Intramuscular, Once, On Fri03/24/25 at 1600, For 1 dose, Charging context for this clinic-administered medication: Medically Necessary/InsuranceStart: 12-09-2024 End: 96-08-4659lgdpdhwbmyyxthobjR (Botox) injection 200 UnitsStart: 12-09-2024 End: 65-56-4192ulnynl 200 [IU] by intramuscular injection [id number] Units, Intramuscular, Once, On Fri12/09/24 at 1530, For 1 dose, Charging context for this clinic-administered medication: Medically Necessary/InsuranceStart: 07-15-2024 End: 57-05-5931tgudhopbvvvqoheoiY (Botox) injection 200 UnitsStart: 07-15-2024 End: 75-42-8585nwtere 200 [IU] by intramuscular injection [id number] Units, Intramuscular, Once, On Fri07/15/24 at 1315, For 1 dose, Charging context for this clinic-administered medication: Medically Necessary/InsuranceStart: 03-17-2024 End: 59-34-0596Okdmd 200u vial IJ Soln 200 units injection Indications: Intractable chronic migraine without aura and without status migrainosus DIRECTED 155 UNITS INJECTION EVERY 90 DAYS 1 each 3 06/15/2025 ActiveStart: 12-25-2023 End: 45-75-9309yjitunxetgcalzlczX (Botox) injection 200 UnitsBotox 200 units injection DIRECTED 155 UNITS INJECTION EVERY 90 DAYS 0 Activecyclobenzaprine hydrochloride 10 mg oral tablet (2 sources)Muscle RelaxantStart: 46-27-4426leik 1 tablet by mouth three times daily as needed for muscle spasmsCyclobenzaprine HCl 10 MG 1 tab(s) Orally 3 times a day prn muscle spasms Jul, Not-Takingfluconazole 150 mg oral tablet (7 sources)Azole AntifungalStart: 30-98-9982gkkn 1 tablet by mouth once as neededDiflucan 150 MG 1 tablet Orally once for 10 days March, Not-Taking/PRNStart: 32-09-7413sjablfsomendpgql dimesylate 40 mg oral capsule (12 sources)Central Nervous System StimulantStart: 02-02-2024 End: 62-43-5171zhdh 1 capsule by mouth once daily in the morningLisdexamfetamine 40 mg capsule Discontinued 1 CAP PO Daily February 01, 2024 11:00pm February 100:22am FreeTextSi capsule in the morning Orally Once a day; Note: Source Status: Taking; Provider: Linda Moran ( )Start: 12-25-2023 End: 59-99-9532mpfe 1 capsule by mouth in the morningVyvanse 60 MG capsule Indications: ADD (attention deficit disorder) without hyperactivity Take 1 cap iglesia (60 mg) by mouth in the morning. 30 capsule 0 12/25/2023 01/24/2024 Active Start: 11-19-2023 End: 95-12-9655bfvn 1 capsule by mouth in the morninglisdexamfetamine (Vyvanse) 40 MG capsule Indications: ADD (attention deficit disorder) without hyper activity Take 1 capsule (40 mg) by mouth in the morning. 30 capsule 0 11/19/2023 12/25/2023 Discontinuedtake 1 capsule by mouth every twenty-four hoursVyvanse 40 MG 1 capsule in the morning Orally Once a day ActivemethylPREDNISolone 4 mg oral tablet (9 sources)CorticosteroidStart: 35-69-7062xlbtbnZPCKQFJxzshi 4 MG as directed Orally for 6 days March, Not-Taking/PRNStart: 99-18-2144Hyyewi 4 MG as directed Orally as directed for 6 days Jul, Not-Takingondansetron 4 mg disintegrating oral tablet (2 sources)Serotonin-3 Receptor AntagonistStart: 10-10-2023 End: 95-11-3974oolfosegims ODT (Zofran-ODT) 4 MG disintegrating tablet DISSOLVE 1 TABLET ON THE TONGUE EVERY 6 HOURS NEEDED FOR NAUSEA./ VOMITING 0 10/10/2023 12/25/2023 DiscontinuedSerdexmethylphen-Dexmethylphen (3 sources)Start: 02-11-2024 End: 99-55-3429Byonwexydhzwknlz-Dexmethylphen (Azstarys) 26.1 mg- 5.2 mg capsule Discontinued 1 TAB PO Every morning February 10, 2024 11:00pm September 17, 2024 10:41amStart: 55-99-7912Abezxcxaqptylkot-Dexmethylphen (Azstarys) 26.1 mg- 5.2 mg capsule Active 1 TAB PO Every morning February 11, 2024 12:00amtriamcinolone acetonide 40 mg/ml injectable suspension (11 sources)CorticosteroidStart: 63-64-7791Vkygffb-40 Jul, 40 mgStart: 74-39-8002Mlfcvna (2 sources)Ubrelvy Not-Takingubrogepant 100 mg oral tablet (20 sources)Start: 16-47-7906Wwfxzjbpnm (Ubrelvy) 100 mg tablet Active 100 MG PO .prn September 17, 2024 12:00amStart: 08-19-2024 End: 94-29-5961qthu 1 tablet by mouth onceUbrogepant (Ubrelvy) 100 MG tablet Indications: Intractable chronic migraine without aura and without status migrainosus Take 1 tablet by mouth if needed (1 po onset migraine may repeat in 2 hours max 200 mg per dya) 16 tablet 11 06/01/2025 09/04/2025 Discontinued (Reorder)Start: 03-19-2024 End: 35-28-0842Qxgvmds 100 MG tablet 03/19/2024 08/19/2024 Discontinued (Reorder) Problems Active Problems Problem ClassificationProblemDateDocumented DateEpisodic/ChronicAnxiety disorders (1 source)Generalized anxiety disorder; Translations: [Generalized anxiety disorder]ChronicChronic kidney disease (13 sources)Chronic kidney disease; Translations: [Chronic kidney disease, unspecified]32-02-0009KzdrtzoHkmkaqs obstructive pulmonary disease and bronchiectasis (1 source)Bronchitis, not specified as acute or chronicEpisodicDisorders of lipid metabolism (1 source)Hyperlipidemia; Translations: [Hyperlipidemia, unspecified]Chronic Disorders usually diagnosed in infancy, childhood, or adolescence (20 sources)Attention deficit hyperactivity disorder, predominantly inattentive type; Translations: [Other specified behavioral and emotional disorders with onset usually occurring in childhood and adolescence]Onset: ChronicEssential hypertension (20 sources)Essential hypertension; Translations: [Essential (primary) hypertension]Onset: 153409-21-8235JqjghhjMdpim and electrolyte disorders (2 sources)Hypokalemia; Translations: [Hypokalemia]Onset: 93-90-8976Fbyxjjng Fracture of lower limb (1 source)Stress fracture, right foot, subsequent encounter for fracture with routine healing; Translations: [Stress fracture, right foot, subsequent encounter for fracture with routine healing]EpisodicFracture of lower limb (1 source)Stress fracture, left foot, subsequent encounter for fracture with routine healing; Translations: [Stress fracture, left foot, subsequent encounter for fracture with routine healing]EpisodicGenitourinary symptoms and ill- defined conditions (1 source)Proteinuria; Translations: [Proteinuria, unspecified]EpisodicHeadache; including migraine (20 sources)Chronic migraine without aura, not intractable, without status migrainosus; Translations: [Migrainewith aura, not intractable, without status migrainosus]Onset: 104395-39-4183IigqbkcWaowiiithbirj and screening for infectious disease (5 sources)Contact with and (suspected) exposure to other viral communicable diseases; Translations: [Vaccination given]Onset: 12-97-6852QudnlwhsTbmdhncio (2 sources)Upper respiratory tract infection due to Influenza; Translations: [Influenza due to unidentified influenza virus with other respiratory manifestations]Onset: 90-46-6639UbccymxwBfvxo disorders and dislocations; trauma-related (20 sources)Unspecified internal derangement of right knee; Translations: [Derangement of right knee]Onset: 29-86-5306WjjlcvkDxkxiiwyy disorders (1 source)Excessive and frequent menstruation; Translations: [Excessive and frequent menstruation with regular cycle]ChronicMood disorders (1 source)Dysthymia; Translations: [Dysthymic disorder]ChronicMultiple sclerosis (5 sources)Multiple sclerosis; Translations: [MULTIPLE SCLEROSIS]Onset: 15-15-2410ArgbeqxBdfgbbqge; nephrosis; renal sclerosis (20 sources)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; Translations: [Nephrotic syndrome]Onset: 03-41-4209MexufpeDetqqqszdkf deficiencies (20 sources)Vitamin D deficiency; Translations: [Vitamin D deficiency, unspecified]Onset: 925980-21-6305VytwxsaCcdpm aftercare (1 source)History and physical examination, follow-up; Translations: [Encounter for follow-up examination after completed treatment for conditions other than malignant neoplasm]EpisodicOther circulatory disease (1 source)Other specified symptoms and signs involving the circulatory and respiratory systemsEpisodicOther connective tissue disease (5 sources)Pain in left foot; Translations: [PAIN IN LEFT FOOT]Onset: 06-05-2021 EpisodicOther connective tissue disease (4 sources)Pain in right foot; Translations: [PAIN IN RIGHT FOOT]Onset: 80-54-9133WehziinmFwmik connective tissue disease (5 sources)Neuralgia and neuritis, unspecified; Translations: [NEURALGIA AND NEURITIS UNSPECIFIED]Onset: 65-69-9008LpirmbqkXrsyk connective tissue disease (1 source)Neuralgia; Translations: [Neuralgia and neuritis, unspecified]Episodic Other eye disorders (1 source)Tear film insufficiency; Translations: [Dry eye syndrome of bilateral lacrimal glands]EpisodicOther gastrointestinal disorders (1 source)Diarrhea; Translations: [Diarrhea, unspecified]EpisodicOther liver diseases (11 sources)Steatosis of liver; Translations: [Fatty (change of) liver, not elsewhere classified]ChronicOther nervous system disorders (20 sources)Demyelinating disease of central nervous system; Translations: [Demyelinating disease of central nervous system, unspecified]Onset: 06-09-2023 86-34-1351YgjogwzNltxp nervous system disorders (20 sources)Small fiber neuropathy; Translations: [Polyneuropathy, unspecified] Onset: 039508-06-9844EudluhaBsnra nervous system disorders (4 sources)Chiari malformation type I; Translations: [Compression of brain] 79-47-2731OasbfsqYimtl nervous system disorders (1 source)Impaired cognition; Translations: [Other symptoms and signs involving cognitive functions and awareness]23-91-5783PjxbjbwsKlxjw nutritional; endocrine; and metabolic disorders (1 source)Overweight; Translations: [Overweight]EpisodicOther nutritional; endocrine; and metabolic disorders (1 source)Body mass index 25-29 - overweight; Translations: [Body mass index (BMI) 28.0-28.9, adult]EpisodicOther screening for suspected conditions (not mental disorders or infectious disease) (13 sources)Encounter for screening for lipoid disorders; Translations: [Other abnormal findings on diagnostic imaging of central nervous system]Onset: 64-20-5046YhhysuwbVusky upper respiratory infections (1 source)Chronic sinusitis; Translations: [Chronic sinusitis, unspecified] ChronicOther upper respiratory infections (10 sources)Acute maxillary sinusitis, unspecified; Translations: [Acute sinusitis]Onset: 73-98-7960OpsdiqmfZyruuq media and related conditions (5 sources)Acute secretory otitis media; Translations: [Other acute nonsuppurative otitis media, right ear]Onset: 98-28-4817HtmzqaiuFuzjbbvx codes; unclassified (4 sources)Localized edema; Translations: [LOCALIZED EDEMA]Onset: 05-18-2021 EpisodicResidual codes; unclassified (1 source)Family history of diabetes mellitus; Translations: [Family history of diabetes mellitus]EpisodicResidual codes; unclassified (1 source)Tobacco user; Translations: [Tobacco use]EpisodicSystemic lupus erythematosus and connective tissue disorders (3 sources)Autoimmune disease; Translations: [Systemic involvement of connective tissue, unspecified]66-02-8522YyozherVwdfbyg disorders (1 source)Hypothyroidism; Translations: [Other specified hypothyroidism] 37-15-7496Pkubnur Past or Other Problems Problem ClassificationProblemDateDocumented DateEpisodic/ChronicAcute and chronic tonsillitis (1 source)Acute tonsillitis; Translations: [Acute tonsillitis, unspecified] Onset: 01-82-3944GwwqohzfVfbkj bronchitis (1 source)Acute bronchitis; Translations: [Acute bronchitis, unspecified]Onset: 49-63-9590DjgwxrumGchjortuc infection; unspecified site (1 source)Bacterial infectious disease; Translations: [Bacterial infection, unspecified, in conditions classified elsewhere and of unspecified site]Onset: 58-58-4898NhzyrxsaSbzztvdbsozxt of surgical procedures or medical care (20 sources)Drug-induced hypotension; Translations: [Hypotension due to drugs] Onset: 159323-60-9539PxutrxvwMlrnvlfnd of teeth and jaw (1 source)Other specified disorders of temporomandibular joint; Translations: [Temporomandibular joint disc]Onset: 63-85-4011TobihimtHeyzomn and fatigue (5 sources)Other fatigue; Translations: [Fatigue]Onset: 09-68-2171VscjeqiqGiulzg and vomiting (20 sources)Nausea, vomiting and diarrhea; Translations: [Nausea with vomiting, unspecified]Onset: 225105-96-1060YeyyerieLptjrxoqvjxr breast conditions (20 sources)Mastodynia; Translations: [Pain of right breast]Onset: 09-16-2024 38-45-2471KhqgowylCjzcaplgqev chest pain (1 source)Chest pain; Translations: [Chest pain, unspecified]Onset: 02-17-2018 EpisodicOther circulatory disease (20 sources)Prehypertension; Translations: [Elevated blood-pressure reading, without diagnosis of hypertension]Onset: 284307-11-9896VpgzidvoWlyxn lower respiratory disease (1 source)Cough; Translations: [Cough, unspecified]Onset: 32-42-6951Lwqwuvdw Other nervous system disorders (1 source)Ataxia, unspecified; Translations: [ATAXIA UNSPECIFIED]Onset: 62-85-5850GwqvlhbeNclsg nervous system disorders (1 source)Paresthesia of skin; Translations: [PARESTHESIA OF SKIN]Onset: 54-95-0463EwvnskncXjlrl skin disorders (1 source)Localized swelling, mass and lump, unspecified; Translations: [Localized mass]Onset: 05-79-8094BxfksfqaQzyiuezz codes; unclassified (1 source)History of exposure to hazardous bodily fluids; Translations: [Personal history of contact with and(suspected) exposure to potentially hazardous body fluids]Onset: 68-61-5406QwpdraroLduchhww codes; unclassified (1 source)Flushing; Translations: [Flushing]Onset: 79-21-7112Xytsgvdc Unclassified (2 sources)Acquired absence of both cervix and uterus; Translations: [Acquired absence of both cervix and uterus]Onset: 58-93-2555MnaukifnZnnhvsvbocrl (1 source)Vaginal yeast infection B37.31Unclassified (1 source)Suspected COVID-19 virus infection Z20.822Viral infection (1 source)COVID-19 Results Test NameValueInterpretationReference RangeFacilitySjogrens syndrome-A extractable nuclear antibodyon 67-60-2744Lmvhkasl syndrome-A extractable nuclear Ab IA Qn (S)<1.0 NEG<1.0 NEG AINOAL HealthcareFASTING:NO FASTING: NOQUESTPerforming Organization Information Site ID: QPT Name: [facility] Address: [address] [place] [address] Director: Tigre Ram Count includes the [facility] HospitalNo Panel Informationon 35-19-5454Xugnjyjhyx Organization Information Site ID: QPT Name: [facility] Address: [address] [place] [address] Director: Tigre Ram MDGranville Medical CenterT3on 75-41-5585Z5 [Mass/Vol]114 ng/dL76 - 181 ng/dLFreeman Heart InstituteT4, free 13-41-6127Ovkj T4 [Mass/Vol]1 ng/dL0.8 - 1.8 ng/dLFreeman Heart InstituteTSn 76-69-9335VWR Qn1.59 m[IU]/LmIU/LNOMS HealthcareComment on above:Reference Range > or = 20 Years 0.40-4.50 Ranges First trimester 0.26-2.66 Second trimester 0.55-2.73 Third trimester 0.43-2.91 XR chest 2V*on 79-79-2189MF chest 2V*[facility] Main [address] [address] XRay Report Signed Patient: Celi Madrid MR#: [id number] : 1985 Acct:[id number] Age/Sex: 39 / F ADM Date: 10/11/24 Loc: XDUCLY Room: Type: [facility] CLI Attending Dr: Aleida Leiva APRN Copies to: Aleida Leiva APRN Ordering Provider: Aleida Leiva APRN Date of Service: 10/11/24 XR/XR chest 2V*: COUGH Plain film chest Single view HISTORY: Dry cough. Fever. COMPARISON: None FINDINGS: SUPPORT DEVICES: None POSTSURGICAL CHANGES: None HEART: Within normal limits PULMONARY LONG: Within normal limits MEDIASTINUM: Unremarkable LUNGS AND PLEURA: No acute lung process, pleural effusion or pneumothorax identified. Calcified pleural scarring of the right lung base BONY STRUCTURES: Intact ADDITIONAL FINDINGS None XR/XR chest 2V* IMPRESSION: No acute process. Impression dictated by: Jarrell Harp M.D.10/11/2024 12:51 PM Dictation Location: [place] [address] Transcribed By: [facility] 10/11/24 1251 Dictated By: Jarrell Harp DO 10/11/24 1248 Signed By: 10/11/24 [facility] GroupTB VITAMIN D 25 OHon 09-17-2024 VITAMIN D19 ng/mLNOMS HealthcareComment on above:<20 ng/mL Vit D deficient 20-<30 ng/mL Vit D insufficient 30-100 ng/mL Vit D sufficient >100 ng/mL Potential Toxicity CLINISYNCNOMS Healthcare head/brain wo/w conon 02-32-5410VU head/brain wo/w [facility] [place] [address] MRI Report Signed Patient: Celi Madrid MR#: [id number] : 1985 Acct:[id number] Age/Sex: 38 / F ADM Date: 03/10/24 Loc: MR Room: Type: [facility] CLI Attending Dr: Efrain Jean Baptiste MD Copies to: Efrain Jean Baptiste MD Ordering Provider: Efrain Jean Baptiste MD Date of Service: 03/10/24 MR/MR head/brain wo/w con: R988, [id number] MRI of the brain with and without [...] Izaguirre Jr., D.ONaman03/11/2024 9:41 AM Dictation Location: [place] [address] Transcribed By: [facility] 03/11/24 0941 Dictated By: Bran Izaguirre Jr, DO 03/11/24 0938 Signed By: 03/11/24 0941[facility] Physician GroupLon [id number]: [id number] Received: 03/05/24 Status: SOUT Req Num: [id number] Spec Type: Surgical Subm Dr: Umberto Jung MD Tissues: A BREAST CORE NO CALCS (RT BREAST 9:00) Procedures: HE/4, Gross/Micro L4 Age/ Patient Sex Location Account Attending Physician Celi Madrid 38/F LABELL [id number] Umberto Jung MD SPEC NUM: [id number] RECD: 03/05/24 STATUS: SOUT REQ NUM: [id number] LIS: 03/04/24- SUBM DR: Umberto Jung MD ENTERED: 03/05/[address]: Shaquille,Lab SPEC TYPE: Surgical DEPT: FIORELLA COHEN ORDERED: HE/4, Gross/Micro L4 ORDERED: , Gross/Micro L4 Pathological [...] at gross: 03/05/2024 at 1441 CPT Codes 61782 Specimen: [id number] Received: 03/05/24 Status: SUSAN [place] Num: [id number] Spec Type: Surgical Subm Dr: Umberto Jung MD Tissues: A BREAST CORE NO CALCS (RT BREAST 9:00) Procedures: , Gross/Micro L4 Patient: Celi Madrid [id number] (Continued) Signed (signature on file) Diana Lang MD 03/08/[address] [place] [address] Physician GroupNo Panel InformationOrdered By: Luisa Mckeon on 57-36-1018Hwwzy Strep (POC)[facility] HospitalCOVID/FLU/RSV RT-PCRon 27-45-4010FOPE-CoV-2 (COVID-19) RNA ROXANA+probe Ql (Unsp spec)Negative [facility] [employer] Other COVID/FLU/RSV RT-PCRNegativeCleveland [employer] Other COVID/FLU/RSV RT-PCRPositiveCleveland [employer] Other COVID Quick Testingon 92-54-1433DlsbilQqnoahenGwusl [employer] Other COVID/FLU/RSV RT-PCRon 31-47-0150NCKX-CoV-2 (COVID-19) RNA ROXANA+probe Ql (Unsp spec)PositiveNosaint luke[facility] [employer] Other COVID/FLU/RSV RT-PCRNegativeLayer Other CBC AUTO DIFFon 11-46-9735YXXE #0.0 103/ulNormal 0.0-0.1[facility] Methodist HospitalComment on above:Performed By: #### CMP, LIPID #### [facility] [address] [place] [address] Dr. Sd JarrettBasophils/100 WBC (Bld)0.5 %Normal0.2-2.0The [facility] Comment on above:Performed By: #### CMP, LIPID #### [facility] [address] [place] [address] Dr. Sd Stevens #0.1 103/ulNormal0.0-0.7The [facility]view HealthComment on above: Performed By: #### CMP, LIPID #### [facility] [address] [place] [address] Dr. Sd Lanosinophils/100 WBC (Bld)1.3 %Normal0.9-7.0The [facility] Comment on above:Performed By: #### CMP, LIPID #### [facility] [address] [place] [address] Dr. Sd Hothrocyte distribution width (RBC) [Ratio]12.5 %Yyxdij23.0-15.0 The [facility]view HealthComment on above:Performed By: #### CMP, LIPID #### [facility] [address] [place] [address] Dr. Sd JarrettHematocrit (Bld) [Volume fraction]40.3 %Iwyieq05.0-48.0The [facility] HealthComment on above:Performed By: #### CMP, LIPID #### [facility] [address] [place] [address] Dr. Sd JarrettHemoglobin (Bld) [Mass/Vol]12.8 g/iIYbhxnj19.0-16.0The [facility] HealthComment on above:Performed By: #### CMP, LIPID #### [facility] [address] [place] [address] Dr. Sd Doss #0.03 10e3/ulNormal0.00-0.03The [facility] HealthComment on above:Performed By: #### CMP, LIPID #### [facility] [address] [place] [address] Dr. Sd Doss %0.3 %Normal0.0-0.5The [facility] HealthComment on above: Performed By: #### CMP, LIPID #### [facility] [address] [place] [address] Dr. Sd Rao #2.3 103/ulNormal1.2-3.8The [facility] HealthComment on above:Performed By: #### CMP, LIPID #### [facility] [address] [place] [address] Dr. Sd Hillhocytes/100 WBC (Bld)26.7 %Xespmv55.5-60.0The [facility] HealthComment on above:Performed By: #### CMP, LIPID #### [facility] [address] [place] [address] Dr. Sd AlexanderUAL DIFF REQNONormalThe [facility]view HealthComment on above: Performed By: #### CMP, LIPID #### [facility] [address] [place] [address] Dr. Sd Camarillo (RBC) [Entitic mass]29.3 haRjoxit10.7-34.0The [facility] HealthComment on above:Performed By: #### CMP, LIPID #### [facility] [address] [place] [address] Dr. Sd Camarillo (RBC) [Mass/Vol]31.8 g/iZGdxcir43.9-35.2The [facility] HealthComment on above:Performed By: #### CMP, LIPID #### [facility] [address] [place] [address] Dr. Sd Camarillo (RBC) [Entitic vol]92.2 fKHrfuuh21.0-99.0The [facility] HealthComment on above:Performed By: #### CMP, LIPID #### [facility] [address] [place] [address] Dr. Sd De La Torre #0.5 103/ulNormal0.3-0.8The [facility] HealthComment on above:Performed By: #### CMP, LIPID #### [facility] [address] [place] [address] [address] Sd Urrutiaocytes/100 WBC (Bld)5.8 %Normal1.7-12.0The [facility] Comment on above:Performed By: #### CMP, LIPID #### [facility] [address] [place] [address] [address] Sd LouisUT #5.6 103/ulNormal1.4-6.5The [facility] HealthComment on above:Performed By: #### CMP, LIPID #### [facility] [address] [place] [address] Dr. Sd Louisutrophils/100 WBC (Bld)65.4 %Bnmlhy58.0-75.0The [facility] HealthComment on above:Performed By: #### CMP, LIPID #### [facility] [address] [place] [address] Dr. Sd JarrettPlatelet mean volume (Bld) [Entitic vol]9.9 fLNormal9.5-13.5The [facility] HealthComment on above:Performed By: #### CMP, LIPID #### [facility] [address] [place] [address] Dr. Sd JarrettPLT315 103/nuDdqbtx966-151Obq [facility] HealthComment on above: Performed By: #### CMP, LIPID #### [facility] [address] [place] [address] Dr. Sd JarrettRBC4.37 106/ulNormal4.20-5.40The [facility] HealthComment on above:Performed By: #### CMP, LIPID #### [facility] [address] [place] [address] Dr. Sd JarrettWBC8.6 103/ulNormal4.0-11.0The [facility] on above: Performed By: #### CMP, LIPID #### [facility] [address] [place] [address] Dr. Sd JarrettLIPID PROFILEon 39-95-1400AYQL-HDL RATIO NORMSEE [facility] HospitalComment on above:Result Comment: 3.3 - 4.4 LOW RISK 4.4 - 7.1 AVERAGE RISK 7.1 - 11.0 MODERATE RISK >11.0 HIGH RISKPerformed By: #### CMP, LIPID #### [facility] [address] [place] [address] [address] Sd JarrettCholesterol [Mass/Vol]294 mg/dLCritically high<=200The [facility] HealthComment on above:Performed By: #### CMP, LIPID #### [facility] [address] [place] [address] Dr. Sd JarrettCholesterol in HDL [Mass/Vol]64 mg/dLSouthwest General Health Center Comment on above:Performed By: #### CMP, LIPID #### [facility] [address] [place] [address] Dr. Sd JarrettCholesterol in LDL [Mass/Vol]192.4 mg/dLSouthwest General Health CenterComment on above:Performed By: #### CMP, LIPID #### [facility] [address] [place] [address] Dr. Sd Ramirezesterlindsey.total/Cholesterol in HDL [Mass ratio]4.6 {ratio} NormalThe [facility] HealthCommymichigan medical center on above:Performed By: #### CMP, LIPID #### [facility] [address] [place] [address] Dr. Sd JarrettHDL NORMAL> or = 60 mg/dl - LOW CARDIOVASCULAR RISK <40 mg/dl - HIGH CARDIOVASCULAR RISKSouthwest General Health CenterComment on above:Performed By: #### CMP, LIPID #### [facility] [address] [place] [address] Dr. Sd JarrettLDL CALC NORMALSEE BELOWSouthwest General Health CenterComment on above:Result Comment: <100 mg/dl OPTIMAL 100 - 129 mg/dl NEAR OR ABOVE OPTIMAL 130 - 159 mg/dl BORDERLINE HIGH 160 - 189 mg/dl HIGH >190 mg/dl VERY HIGH Performed By: #### CMP, LIPID #### [facility] [address] [place] [address] Dr. Sd JarrettTriglyceride [Mass/Vol]188 mg/dLCritically high<=150The [facility] HealthComment on above:Performed By: #### CMP, LIPID #### [facility] [address] [place] [address] Dr. Sd SantosLDL CALC37.6 mg/dLNormalThe [facility] HealthComment on above: Performed By: #### CMP, LIPID #### [facility] [address] [place] [address] Dr. Sd JarrettPROF 14(COMP METB)on 64-21-5234Jcvsnfl [Mass/Vol]3.4 g/dL Critically low3.5-5.0The [facility] HealthComment on above:Performed By: #### CMP, LIPID #### [facility] [address] [place] [address] Dr. Sd JarrettAlbumin/Globulin [Mass ratio]0.9 {ratio}NormalThe [facility] HealthComment on above:Performed By: #### CMP, LIPID #### [facility] [address] [place] [address] Dr. Sd Duque [Catalytic activity/Vol]69 U/VJgagrz59-077Bby [facility] HealthComment on above:Performed By: #### CMP, LIPID #### [facility] [address] [place] [address] Dr. Sd Bhagat [Catalytic activity/Vol]32 U/LNormal9-52The [facility] Comment on above:Performed By: #### CMP, LIPID #### [facility] [address] [place] [address] Dr. Sd John gap [Moles/Vol]9.4 mmol/LNormalThe [facility] HealthComment on above:Performed By: #### CMP, LIPID #### [facility] [address] [place] [address] Dr. Sd Rocha [Catalytic activity/Vol]16 U/ADrrepi96-43Drt [facility] HealthComment on above:Performed By: #### CMP, LIPID #### [facility] [address] [place] [address] Dr. Yilan ChangBilirubin [Mass/Vol]0.2 mg/dLNormal0.2-1.3The [facility] Comment on above:Performed By: #### CMP, LIPID #### [facility] [address] [place] [address] Dr. Sd JarrettCalcium [Mass/Vol]8.9 mg/dLNormal8.4-10.2The [facility] Comment on above:Performed By: #### CMP, LIPID #### [facility] [address] [place] [address] Dr. Sd JarrettChloride [Moles/Vol]100 mmol/CMpaash34-423Jel [facility] Comment on above:Performed By: #### CMP, LIPID #### [facility] [address] [place] [address] Dr. Sd JarrettCO2 [Moles/Vol]30.5 mmol/LCritically high22.0-30.0The [facility] HealthComment on above:Performed By: #### CMP, LIPID #### [facility] [address] [place] [address] Dr. Sd JarrettCreatinine [Mass/Vol]0.60 mg/dLNormal0.52-1.04The [facility] HealthComment on above:Performed By: #### CMP, LIPID #### [facility] [address] [place] [address] Dr. Sd LanGFR-AF MONEGASQUE>60Normal>=60The [facility] HealthComment on above:Performed By: #### CMP, LIPID #### [facility] [address] [place] [address] Dr. Sd LanGFR-NON AF MONEGASQUE>60Normal>=60The [facility] HealthComment on above:Performed By: #### CMP, LIPID #### [facility] [address] [place] [address] Dr. Sd JarrettGlobulin (S) [Mass/Vol]4.0 g/dLNormalThe [facility] HealthComment on above:Performed By: #### CMP, LIPID #### [facility] [address] [place] [address] Dr. Sd JarrettGlucose [Mass/Vol]76 mg/hNTxakos55-515Jeo [facility] Comment on above:Performed By: #### CMP, LIPID #### [facility] [address] [place] [address] [address] Sd JarrettPotassium [Moles/Vol]3.9 mmol/LNormal3.4-5.0The [facility] Comment on above:Performed By: #### CMP, LIPID #### [facility] [address] [place] [address] [address] Sd JarrettProtein [Mass/Vol]7.4 g/dLNormal6.1-8.2The [facility] Comment on above:Performed By: #### CMP, LIPID #### [facility] [address] [place] [address] Dr. Sd JarrettSodium [Moles/Vol]136 mmol/LCritically dcb289-784Iwo [facility] HealthComment on above:Performed By: #### CMP, LIPID #### [facility] [address] [place] [address] Dr. Sd JarrettUrea nitrogen [Mass/Vol]10.0 mg/dLNormal7.0-17.0The [facility] HealthComment on above:Performed By: #### CMP, LIPID #### [facility] [address] [place] [address] Dr. Sd JarrettUrea nitrogen/Creatinine [Mass ratio]16.7 mg/mgNormalThe [facility]view HealthComment on above:Performed By: #### CMP, LIPID #### [facility] [address] [place] [address] Dr. Sd JarrettXR FOOT LIAM MIN 3 VIEWSon 69-99-9797TJ FOOT LIAM MIN 3 VIEWS EXAMINATION: XR [...] Electronically authenticated by: UMBERTO JUNG Date: 2021-07-05 14:12NoPomerene HospitalXR FOOT LIAM MIN 3 VIEWSon 84-83-4241DU FOOT LIMA MIN 3 VIEWS EXAM: XR FOOT LIAM [...] Left foot: Unremarkable Electronically authenticated by: JOEL AYALA Date: 2021-06-12 15:05NoPomerene HospitalXR FOOT LIAM MIN 3 VIEWSon 94-97-8074IN FOOT LIAM MIN 3 VIEWS EXAMINATION: XR [...] Electronically authenticated by: UMBERTO JUNG Date: 2021-05-23 08:04[facility] AUTO DIFFon 87-79-1783APKR #0.0 103/ulNormal0.0-0.1The [facility] HealthComment on above:Performed By: #### CBC #### [facility] [address] [place], [place] [address] Woody KarenBasophils/100 WBC (Bld)0.4 %Normal0.2-2.0The [facility] Comment on above:Performed By: #### CBC #### [facility] [address] [place] [address] Woody KarenEO #0.1 103/ulNormal0.0-0.7The [facility] HealthComment on above: Performed By: #### CBC #### [facility] [address] [place] [address] Woody KarenEosinophils/100 WBC (Bld)1.4 %Normal0.9-7.0The [facility] Comment on above:Performed By: #### CBC #### [facility] [address] [place] [address] Woody KarenErythrocyte distribution width (RBC) [Ratio]12.4 %Xidebv37.0-15.0The [facility] HealthComment on above:Performed By: #### CBC #### [facility] [address] [place] [address] Woody KarenHematocrit (Bld) [Volume fraction]40.1 %Fwmzhl39.0-48.0The [facility] HealthComment on above:Performed By: #### CBC #### [facility] [address] [place] [address] Woody KarenHemoglobin (Bld) [Mass/Vol]13.2 g/oFRktfxm70.0-16.0The [facility] HealthComment on above:Performed By: #### CBC #### [facility] [address] [place] [address] Woody KarenIG #0.03 10e3/ulNormal0.00-0.03The [facility] HealthComment on above:Performed By: #### CBC #### [facility] [address] [place] [address] Woody KarenIG %0.4 %Normal0.0-0.5The [facility] HealthComment on above: Performed By: #### CBC #### [facility] [address] [place] [address] Woody KarenLYMPH #2.1 103/ulNormal1.2-3.8The [facility] HealthComment on above: Performed By: #### CBC #### [facility] [address] [place] [address] Woody KarenLymphocytes/100 WBC (Bld)29.1 %Hpoknx31.5-60.0The [facility] Comment on above:Performed By: #### CBC #### [facility] [address] [place] [address] Woody KarenMANUAL DIFF REQNONormalThe [facility] HealthComment on above: Performed By: #### CBC #### [facility] [address] [place] [address] Woody KarenMCH (RBC) [Entitic mass]29.5 mtMsfeum38.7-34.0[facility] Comment on above:Performed By: #### CBC #### [facility] [address] [place] [address] Woody KarenMCHC (RBC) [Mass/Vol]32.9 g/vWGfnfci00.9-35.2[facility] Comment on above:Performed By: #### CBC #### [facility] [address] [place] [address] Woody KarenMCV (RBC) [Entitic vol]89.7 fVCymkem92.0-99.0The [facility] Comment on above:Performed By: #### CBC #### [facility] [address] [place] [address] Woody KarenMONO #0.4 103/ulNormal0.3-0.8The [facility] HealthComment on above: Performed By: #### CBC #### [facility] [address] [place] [address] Woody KarenMonocytes/100 WBC (Bld)5.6 %Normal1.7-12.0[facility] Comment on above:Performed By: #### CBC #### [facility] [address] [place] [address] Woody KarenNEUT #4.6 103/ulNormal1.4-6.5The [facility] HealthComment on above: Performed By: #### CBC #### [facility] [address] [place] [address] Woody KarenNeutrophils/100 WBC (Bld)63.1 %Hgvdsm11.0-75.0The [facility] Comment on above:Performed By: #### CBC #### [facility] [address] [place] [address] Woody DuenasPlatelet mean volume (Bld) [Entitic vol]9.3 fLCritically low9.5-13.5 The [facility] HealthComment on above:Performed By: #### CBC #### [facility] [address] [place] [address] Woody RvwbcPFD226 103/htBecajt884-515Djn [facility] HealthComment on above: Performed By: #### CBC #### [facility] [address] [place] [address] Woody KarenRBC4.47 106/ulNormal4.20-5.40The [facility] HealthComment on above: Performed By: #### CBC #### [facility] [address] [place] [address] Woody MccloudenWBC7.3 103/ulNormal4.0-11.0The [facility] HealthComment on above: Performed By: #### CBC #### [facility] [address] [place] [address] Woody KarenFERRITINon 31-11-6479Lrktjwdc [Mass/Vol]75.0 ng/mLNormal6.2-137.0The [facility] HealthComment on above:Performed By: #### CMP, LIPID #### [facility] [address] [place] [address] Dr. Sd JarrettRENAL FUNCTION PANELon 27-58-7233Augvkuz [Mass/Vol]3.4 g/dL Critically low3.5-5.0The [facility] HealthComment on above:Performed By: #### RENAL ####[facility] [address] [place], [place] [address]Gerken KarenCalcium [Mass/Vol]8.9 mg/dLNormal8.4-10.2The [facility] Comment on above:Performed By: #### RENAL ####[facility] [address] [place] [address]Fwjcin KarenChloride [Moles/Vol]105 mmol/L Mylwso70-156Ccz [facility] HealthCommymichigan medical center on above:Performed By: #### RENAL ####[facility] [address] [place] [address]Moqwhe KarenCO2 [Moles/Vol]27.6 mmol/HPqdeyu83.0-30.0The [facility] HealthComment on above:Performed By: #### RENAL ####[facility] [address] [place] [address]Fpovxe KarenCreatinine [Mass/Vol]0.64 mg/dLNormal 0.52-1.04The [facility] HealthCommymichigan medical center on above:Performed By: #### RENAL ####[facility] [address] [place] [address]Vvqbcn KarenEGFR-AF MONEGASQUE>60Normal>=60The [facility] HealthCommymichigan medical center on above: Performed By: #### RENAL ####[facility] [address] [place] [address]Vchtgl KarenEGFR-NON AF MONEGASQUE>60Normal>=60The [facility] HealthCommymichigan medical center on above:Performed By: #### RENAL ####[facility] [address] [place] [address]Adyipv KarenGlucose [Mass/Vol]62 mg/dLCritically pwk56-296Dwb [facility]Commymich[facility] center on above: Performed By: #### RENAL ####[facility] [address] [place] [address]Qfccwi KarenPhosphate [Mass/Vol]2.4 mg/dLCritically low2.5-4.5The [facility]Commymichigan medical center on above:Performed By: #### RENAL ####[facility] [address] [place], [place] [address]Gerken KarenPotassium [Moles/Vol]4.1 mmol/LNormal3.4-5.0The [facility] HealthCommymichigan medical center on above:Performed By: #### RENAL ####[facility] F[address] KarenSodium [Moles/Vol]141 mmol/EVushur905-279 The [facility]view HealthComment on above:Performed By: #### RENAL ####[facility] [address] [place] [address] KarenUrea nitrogen [Mass/Vol]12.0 mg/dLNormal7.0-17.0The [facility] HealthComment on above:Performed By: #### RENAL ####[facility] [address] [place] [address] KarenUA RANDOM W/MICROSCOPICon 05-18-2021 BACTERIASMALLAbnormalNONE SEENThe [facility] HealthCommymichigan medical center on above:Performed By: #### UAMIC ####[facility] [address] [place] [address] KarenBilirubin Ql (U)NegativeNormalNEGATIVEThe [facility] HealthComment on above:Performed By: #### UAMIC ####[facility] [address] [place], [place] [address]Gerken KarenCASTNONE SEEN NormalNONE SEENThe [facility] HealthCommymichigan medical center on above:Performed By: #### UAMIC ####[facility] [address] [place] [address] KarenClarity (U)CLEARNormalCLEARThe [facility] HealthCommymichigan medical center on above:Performed By: #### UAMIC ####[facility] [address] [place], [place] [address]Gerken KarenColor (U)YELLOWNormalYELLOWThe [facility] HealthCommymichigan medical center on above:Performed By: #### UAMIC ####[facility] [address] [place], [place] [address]Gerken KarenCrystals LM Nom (Urine sed)NONE SEENNormal NONE SEENThe [facility] HealthCommymichigan medical center on above:Performed By: #### UAMIC ####[facility] [address] [place], [place] [address]Gerken KarenEpithelial cells LM Ql (Urine sed)MODERATEAbnormalNONE SEEN /RAREThe [facility] HealthComment on above:Performed By: #### UAMIC ####[facility] [address] [place] [phone] KarenGlucose Ql (U) NegativeNormalNEGATIVEOhiohealth Riverside Methodist HospitalComment on above:Performed By: #### UAMIC ####[facility] [address] KarenHemoglobin Ql (U)MODERATEAbnormalNEGATIVEOhiohealth [facility] Comment on above:Performed By: #### UAMIC ####[facility] [address] [phone] KarenKetones Ql (U)NegativeNormal NEGATIVEOhiohealth Riverside Methodist HospitalComment on above:Performed By: #### UAMIC ####[facility] [address] [place] [address] KarenLEUKOCYTESNegativeNormalNEGATIVEOhiohealth Riverside Methodist HospitalComment on above: Performed By: #### UAMIC ####[facility] [address]cms[address] KarenMUCOUSMODERATEAbnormalNONE SEENOhiohealth Riverside Methodist HospitalComment on above:Performed By: #### UAMIC ####[facility] [address] KarenNitrite Ql (U) NegativeNormalNEGATIVEOhiohealth Riverside Methodist HospitalComment on above:Performed By: #### UAMIC ####[facility] [address] KarenpH (U)5.5 [pH]Normal5-9[facility] HospitalComment on above: Performed By: #### UAMIC ####[facility] [address] [place] [address] ZuosaCZF1-7Objdjf3-2Pmk [facility] Comment on above:Performed By: #### UAMIC ####[facility] [address] [place] [address] KarenSPEC GRAVITY>=1.030Abnormal 1.005-<=1.025[facility] HospitalComment on above:Performed By: #### UAMIC ####[facility] [address] [place] [address] KarenUA LDVIQSB827 mg/dlAbnormalNEGATIVE/ TRACEThe Parkview HealthComment on above:Performed By: #### UAMIC ####[facility] [address] [place] [address] KarenUrobilinogen Qn (U)0.2 {Ratna'U}/dL Normal0.2 - 1.0The Parkview HealthComment on above:Performed By: #### UAMIC ####[facility] [address] [place] [address] KarenWBC0-2AbnormalNONE SEENThe Parkview HealthComment on above:Performed By: #### UAMIC ####[facility] [address] [place] [address] KarenURINE T PROTEIN CREAT RATIOon 62-61-4678Vvjbukv (U) [Mass/Vol] 98.3 mg/dLCritically high<=12.0[facility] Methodist HospitalComment on above:Performed By: #### CMP, LIPID #### [facility] [address] [place] [address] Dr. Sd Gonzalez PROT CREAT RAT0.41NormalThe Parkview HealthComment on above: Performed By: #### CMP, LIPID #### [facility] [address] [place] [address] Dr. Sd Baez XHRMZ458.76 mg/qYVfesml86.00-300.00[facility] Comment on above:Performed By: #### CMP, LIPID #### [facility] [address] [place] [address] Dr. Sd JarrettQUANTIFERON TB GOLD PLUS (NON-INC)on 70-40-1808CoqdigrQuapnsfnrx performed.NormalOhiohealth Riverside Methodist HospitalComment on above:Performed By: #### QNTTBG ####[facility] [address] [place] [address] KarenCriteriaCommentNoPomerene HospitalCommymichigan medical center on above:Result Comment: The QuantiFERON-TB Gold Plus result is determined by subtracting the Nil value from either TB antigen (Ag) tube. The mitogen tube serves as a control for the test.Performed By: #### QNTTBG ####[facility] [address] [place] [address] KarenMitogen Value >10.00NoSouthern [place] [facility] Center on above:Performed By: #### QNTTBG ####[facility] [address] [place] [address] KarenNill Value0.00 IU/mLNormalRegency Hospital Company on above:Performed By: #### QNTTBG ####[facility] [address] [place] [address] KarenQuantiferon Gold PlusNegativeNormalNegativeRegency Hospital Company on above:Result Comment: Chemiluminescence immunoassay methodologyPerformed By: #### QNTTBG ####[facility] [address] [place] [address] KarenTB1 Ag Value0.00 IU/mLNormalRegency Hospital Company on above:Performed By: #### QNTTBG ####[facility] [address] [place] [address] KarenTB2 Ag Value0.00 IU/mLNormalRegency Hospital Company on above:Performed By: #### QNTTBG ####[facility] [address] [place] [address] KarenHEPATITIS B SURFACE ANTIBODY, QUANTon 84-31-9279Knelwhpik B Surf AB Oqpjk753.8 mIU/mLNormalImmunity>9.9[facility] on above:Result Comment: Status of Immunity Anti-HBs Level Inconsistent with Immunity 0.0 - 9.9 Consistent with Immunity >9.9Performed By: #### HEPBSRF ####[facility] [address] [place], [place] [address]Fczqog KarenMMR IMMUNITYon 20-15-5148Uaoum Abs, IgG<9.0Critically lowImmune >10.9The [facility] Comment on above:Result Comment: Negative <9.0 Equivocal 9.0 - 10.9 Positive >10.9 A positive result generally indicates past exposure to Mumps virus or previous vaccination.Performed By: #### MMRIMMU ####[facility] [address] [place] [id number] KarenRubella Antibodies, IgG3.59 indexNormalImmune >0.99The Parkview HealthComment on above:Result Comment: Non-immune <0.90 Equivocal 0.90 - 0.99 Immune >0.99Performed By: #### MMRIMMU ####[facility] [address] [place] [id number] KarenRubeola Ab, TrD785.0 AU/mLNormal Immune >16.4The Parkview HealthComment on above:Result Comment: Negative <13.5 Equivocal 13.5 - 16.4 Positive >16.4 Presence of antibodies to Rubeola is presumptive evidence of immunity except when acute infection is suspected.Performed By: #### MMRIMMU ####[facility] [address] [place] [id number] KarenVARICELLA IGG ABon 37-18-7290Naenyvbki Zoster VnJ214 indexNormalImmune >165 The Parkview HealthComment on above:Result Comment: Negative <135 Equivocal 135 - 165 Positive >165 A positive result generally indicates exposure to the pathogen or administration of specific immunoglobulins, but it is not indication of active infection or stage of disease.Performed By: #### CMP, LIPID #### [facility] [address] [place], [place] [address] Dr. Sd JarrettTHYROGLOBULIN ABon 04-52-1850Mlzubkgklmxmz Antibody<1.0Normal 0.0-0.9The Parkview HealthComment on above:Result Comment: Thyroglobulin Antibody measured by [employer] MethodologyPerformed By: #### THYGAB #### [facility] [address] [place] [address] Woody KarenFREE T4on 63-21-8802Jmfa T4 [Mass/Vol]0.91 ng/dLNormal0.78-2.19The Parkview HealthComment on above:Performed By: #### CMP, LIPID #### [facility] [address] [place] [address] [address] Sd Walton 57-87-9478NKX4.710 uIU/mLNormal0.470-4.680The Parkview HealthComment on above:Performed By: #### TSH #### [facility] [address] [place] [address] Woody KarenTSH RANGESEE BELOWNormalThe Parkview HealthComment on above:Result Comment: <0.34 UIU/ml HYPERTHYROID 0.34-5.60 UIU/ml EUTHYROID >5.60 UIU/ml HYPOTHYROIDPerformed By: #### TSH #### [facility] [address] [place] [address] Woody KarenMYELIN BASIC PROT CSFon 64-42-1738Bvcsam Basic Protein, CSF2.1 ng/mL Normal0.0-3.7The Parkview HealthComment on above:Performed By: #### MBPCSF ####[facility] [address] [place], [place] [address]Gerken KarenIMMUNOGLOBULIN G SYNTHESIS RATE, CSFon 86-62-6303Fqgefsb [Mass/Vol]3.7 g/dL Critically low3.8-4.8The Parkview HealthComment on above:Performed By: #### IMMUNGC ####[facility] [address] [place], [place] [address]Gerken KarenAlbumin, CSF13 mg/wBHaidxp78-48Uah Parkview HealthComment on above:Performed By: #### IMMUNGC ####[facility] [address] [place] [address]Gerken KarenIgG, Quant, CSF1.9 mg/dLNormal0.0-8.6The Parkview HealthComment on above:Performed By: #### IMMUNGC ####[facility] [address] [place], [place] [address]Vlbitv KarenIgG, Syn Rate,CSF-1.5 mg/dayNormal9.9 TO +3.3The Parkview HealthComment on above: Performed By: #### IMMUNGC ####[facility] [address] [place], [place] [address]Prcvgq KarenImmunoglobulin G, Qn, Ibdzy306 mg/dLNormal 586-1602The [facility] on above:Performed By: #### IMMUNGC ####[facility] [address] [place], [place] [address]Cafkrk KarenOILGOCLONAL BANDING CSFon 91-85-4842Molqyhlqbxr BandsCommentNoSouthern [place] Medical Center on above:Result Comment: Zero (0) oligoclonal bands were observed in the CSF. . Interpretation: Criteria for Positivity: Four (4) or more oligoclonal bands observed only in the CSF have been shown to be most consistent with MS using our method. [Tiffanie , Calvin EL, Warren BG, and Fabianmann JA: Cerebrospinal Fluid Oligoclonal Bands in the [...] performed using Isoelectric Focusing (IEF) and immunoblotting methodology.Performed By: #### CMP, LIPID #### [facility] [address] [place], [place] [address] Dr. Sd Carroll COUNT CSFon 22-14-1257LBY CLARITYCLEARNormalCLEARRegency Hospital Company on above:Performed By: #### CCCSF ####[facility] [address] [place] [address]Gerken KarenPerformed By: #### CMP, LIPID #### [facility] [address] [place] [address] [address] Sd Fitzgerald COLORCOLORLESSNormalCOLORLESSOhiohealth Riverside Methodist HospitalComment on above:Performed By: #### CCCSF ####[facility] [address] [place] [address]Gerken KarenPerformed By: #### CMP, LIPID #### [facility] [address] [place] [address] [address] Sd Fitzgerald RBC11 cubic [facility]aritan Medical CenterComment on above: Performed By: #### CCCSF ####[facility] [address] [place] [address]Gerken KarenCSF RBC1 cubic [facility] Medical CenterComment on above:Performed By: #### CMP, LIPID #### [facility] [address] [place] [address] [address] Sd Fitzgerald WBWDIN02.0 mLNormalOhiohealth Riverside Methodist HospitalComment on above: Performed By: #### CCCSF ####[facility] Iyce[address] KarenPerformed By: #### CMP, LIPID #### [facility] [address] [place] [address] [address] Sd Fitzgerald WBC0 cubic [facility]aritan Medical CenterComment on above: Performed By: #### CCCSF ####[facility] [address] [place] [address]Gerken KarenPerformed By: #### CMP, LIPID #### [facility] [address] [place] [address] [address] Sd Fitzgerald WBC HEADERREFERENCE RANGE 5-10 WBC/cubic mm = BORDERLINE NormalOhiohealth Riverside Methodist HospitalComment on above:Performed By: #### CCCSF ####[facility] [address] KarenPerformed By: #### CMP, LIPID #### [facility] [address] [place], [place] [address] Dr. Sd JarrettGLUCOSE CSFon 87-61-8037QKGMPNK CSF59 mg/lXOfntkd11-34GlbRegency Hospital Company on above:Performed By: #### GLUCSF, PROTCSF ####[facility] Ub[address]iyft[address] KarenLAB TESTINGon 62-65-1109FQNE HEADERSEE SCANNED REPORT IN [facility] on above:Performed By: #### MISC ####[facility] Afifrmbgnu[address] KarenREV FROM REF LAB 02/16/2021[facility] on above:Performed By: #### MISC ####[facility] C[address]clksmj[address] KarenSENT TO REF LAB02/16/2021[facility] on above: Performed By: #### MISC ####[facility] Efr[address]zebu[address] KarenRECV HEADERSEE SCANNED REPORT IN [facility] on above:Performed By: #### MISC ####[facility] Ldk[address]bt[address]ap[address] KarenREV FROM REF LAB02/21/2021[facility] on above:Performed By: #### MISC ####[facility] Ab[address]msircm[address] KarenSENT TO REF LAB02/17/2021[facility] on above:Performed By: #### MISC ####[facility] [address] [place] [id number] KarenPROTEIN CSFon 96-81-6838PPQ PROT CSF29 mg/gCVssvup89-94Dcv [facility]ille HospitalComment on above:Performed By: #### GLUCSF, PROTCSF ####[facility] [address] [place], [place] [address]Hrcoaoanika Pate 19-72-5971ONKMYkuhoa Visit (NEMEFV) CELI MADRID ([id number]) 1985 F Date Time Provider Department 02/13/21 10:00 AM HARDIK GARCIA During your visit today, we recorded the following information about you: Temperature Pulse Blood pressure Weight 97.8 degrees 91/minute 114/75 71.6 kg Height 1.575 m Hardik Garcia MD 02/13/2021 11:20 AM Signed [facility] NEW EVALUATION Referral source: Yelitza Jones MD [address] [place] [phone] PRINCIPAL NEUROLOGIC DIAGNOSIS: Right arm pain, cognitive [...] expected to be with me at the [facility]. Ms. Madrid notes that in 2016, she had a lot of fatigue and was getting sick frequently. She was sent to an full service supervisor and was given the pneumonia vaccine but [...] She has followed with Dr. Castillo in [place] at the [facility]. He recommended Ocrevus. She has discussed this with her liver doctor and gotten the ok to proceed with it. Dr. Castillo has suggested a lumbar puncture, but that has not been done yet. Prior to the above, she denies any history of episodic neurologic impairment that might be consistent with [employer] demyelination, such as unilateral visual loss, focal [...] the arms and legs was intact including zqogr-bb-uiwts, rapid-alternating, and fine movements. Sensory examination: Light [...] which included preparing to see the patient, cmvg-jg-oohp patient care, performing a medically appropriate examination, completing clinical documentation, reviewing records, and counseling/educating the patient/family. Hardik Garcia MD Staff Neurologist [facility] Referring Provider: SELF [...] extremity [M79.601] Order(s):DAVE/ANGIOTENSIN BLD [SQACE] Order #: [id number] FUTURE ANTI BRENT ID [SQENAID] Order #: [id number] FUTURE JASVIR BY IFA WITH REFLEX [SQANAIFR] Order #: [id number] FUTURE FOLATE SERUM [SQSERFOL] Order #: [id number] FUTURE HOMOCYSTEINE [SQHOMCYS] Order #: [id number] FUTURE LYME AB LATE >30 DAYS SYMPTOMS [SQLMLATE] Order #: [id number] FUTURE METHYLMALONIC ACID [SQMMA] Order #: [id number] FUTURE SYPHILIS TOTAL W/REFLEX [SQSYPHTX] Order #: [id number] FUTURE TSH BLD [SQTSH] Order #: [id number] FUTURE COPPER BLOOD [SQCOPPER] Order #: [id number] FUTURE CERULOPLASMIN BLD [SQCERULO] Order #: [id number] FUTURE Prescriptions as of 02/13/2021 Sig: ROSUVASTATIN [...] Encounter Status:Closed by HARDIK GARCIA MD on 02/13/21[facility] PROGRESSon 66-56-8453VYHOHPXUSCE ID: [id number] Author: Hardik Garcia Service: ? Author Type: Physician Type: Progress Notes Filed: 02/13/2021 11:20 AM Note Text: [facility] NEW EVALUATION Referral source: Yelitza Jones MD [address] [place] [phone] PRINCIPAL NEUROLOGIC DIAGNOSIS: Right arm pain, cognitive [...] expected to be with me at the [facility]. Ms. Madrid notes that in 2016, she had a lot of fatigue and was getting sick frequently. She was sent to an full service supervisor and was given the pneumonia vaccine but [...] She has followed with Dr. Castillo in [place] at the [facility]. He recommended Ocrevus. She has discussed this with her liver doctor and gotten the ok to proceed with it. Dr. Castillo has suggested a lumbar puncture, but that has not been done yet. Prior to the above, she denies any history of episodic neurologic impairment that might be consistent with GR[employer]ER demyelination, such as unilateral visual loss, focal [...] Plantarflexors 5 Tone (Jennifer scale) 0 Tone (Jeninfer scale) 0 Modified Jennifer Score Harmon: 0 [...] the arms and legs was intact including jalyr-jn-opzlu, rapid-alternating, and fine movements. Sensory examination: Light [...] which included preparing to see the patient, gtex-ra-ddss patient care, performing a medically appropriate examination, completing clinical documentation, reviewing records, and counseling/educating the patient/family. Hardik Garcia MD Staff Neurologist [facility]Bridge[facility] OUTSIDE CD DICOM IMPORT -NBNRon 80-56-4500KY OUTSIDE CD DICOM IMPORT -NBNRImages were obtained outside of [facility] [id number]_IDCSIACNNPaulding County Hospital ClevelandMR OUTSIDE CD DICOM IMPORT -NBNRImages were obtained outside of [facility] [id number]_IDCSIACNNPaulding County Hospital ClevelandXR OUTSIDE CD DICOM IMPORT -NBNRon 98-10-3682NF OUTSIDE CD DICOM IMPORT -NBNRImages were obtained outside of [facility] [id number]_IDCSIACNNWayne HealthCare Main CampusJC VIRUS DNA, PCR WHOLE BLOODon 02-78-7826EM Virus DNA,PCR (Whole Blood)NegativeNormalNegativeWVUMedicine Harrison Community Hospitalment on above:Result Comment: No JCV DNA detected This test was developed and its performance characteristics determined by [employer]. It has not been cleared or approved by the Food and Drug Administration. The FDA has determined that such clearance or approval is not necessary.Performed By: #### JCVPCR ####[facility] [address] [place] [address] KarenQUANTIFERON TB GOLD PLUS (NON-INC)on 92-45-9906VkegtmaLbhcpvsxpd performed.NormalOhiohealth Riverside Methodist HospitalCommymichigan medical center on above:Performed By: #### QNTTBG ####[facility] [address] [place] [address] KarenCriteriaComment NormalRegency Hospital Company on above:Result Comment: The QuantiFERON-TB Gold Plus result is determined by subtracting the Nil value from either TB antigen (Ag) tube. The mitogen tube serves as a control for the test.Performed By: #### QNTTBG ####[facility] [address]xf[address] [place] [address] KarenMitogen Value >10.00NormalThe [facility] on above:Performed By: #### QNTTBG ####[facility] [address] [place] [address] KarenNill Value0.17 IU/mLNormalOhiohealth Riverside Methodist HospitalCommymichigan medical center on above:Performed By: #### QNTTBG ####[facility] [address] [place] [address]Gerken KarenQuantiferon Gold PlusNegativeNormalNegativeOhiohealth Riverside Methodist HospitalComment on above:Performed By: #### QNTTBG ####[facility] [address] [place], [place] [address]Fpydpx KarenTB1 Ag Value0.16 IU/mLNormalOhiohealth Riverside Methodist HospitalComment on above:Performed By: #### QNTTBG ####[facility] [address] [place] [address]Gerken KarenTB2 Ag Value0.17 IU/mLNormalOhiohealth Riverside Methodist HospitalComment on above:Performed By: #### QNTTBG ####[facility] [address] [place], [place] [address]Gerken KarenHEPATITIS PANEL, ACUTEon 03-69-3300JNxBs ScreenNegative NormalNegativeOhiohealth Riverside Methodist HospitalComment on above:Performed By: #### CMP, LIPID #### [facility] [address] [place] [address] Dr. Sd Ngo Ab, IgMNegativeNormalNegativeOhiohealth Riverside Methodist HospitalComment on above:Performed By: #### CMP, LIPID #### [facility] [address] [place] [address] Dr. Sd Michaels Core Ab, IgMNegativeNormalNegBarney Children's Medical Center Comment on above:Performed By: #### CMP, LIPID #### [facility] [address] [place] [address] Dr. Sd Rosenberg Virus Ab<0.6Mixfua1.0-0.9[facility] Methodist HospitalComment on above:Result Comment: Negative: < 0.8 Indeterminate: 0.8 - 0.9 Positive: > 0.9 . The CDC recommends that a positive HCV antibody result be followed up with a HCV Nucleic Acid Amplification test (900249).Performed By: #### CMP, LIPID #### [facility] [address] [place] [address] Dr. Yilan ChangLYME DISEASE AB, TOTAL AND IGM W/WB REFEon 29-32-8201Jzuk Disease Ab, Quant, IgM<0.39Nwgzgm6.00-0.79The [facility] on above:Result Comment: Negative <0.80 Equivocal 0.80 - 1.19 Positive >1.19 . IgM levels may peak at 3-6 weeks post infection, then gradually decline.Performed By: #### CMP, LIPID #### [facility] [address] [place] [address] Dr. Sd Choi IgG/IgM Ab<0.54Hdrwzb6.00-0.90[facility] on above:Result Comment: Negative <0.91 Equivocal 0.91 - 1.09 Positive >1.09Performed By: #### CMP, LIPID #### [facility] [address] [place] [address] Dr. Sd JarrettVARICELLA ZOSTER VIRUS IGM QUANTon 52-62-3500Dwurjrivv-Zoster Ab, IgM<0.96Apkjdq9.00-0.90The [facility] on above:Result Comment: Negative <0.91 Borderline 0.91 - 1.09 Positive >1.09Performed By: #### VARCIGM ####[facility] [address] [place] [address]Gerken KarenIMMUNOGLOBULIN IGG QUANTITATIVE on 77-92-1848Dcgtbywebknrld G, Qn, Xgsbm426 mg/wZVoirjk418-6601Klm Parkview HealthComment on above:Performed By: #### CMP, LIPID #### [facility] [address] [place] [address] Dr. Sd JarrettIMMUNOGLOBULIN IGM QUANTITATIVEon 58-24-2731Jbxruldhikljeu M, Qn, Toxvk827 mg/wMJgrucn52-346Fyw [facility] on above:Performed By: #### CMP, LIPID #### [facility] [address] [place] [address] Dr. Sd JarrettVARICELLA IGG ABon 68-66-9489Itbremajg Zoster XyL033 indexNormal Immune >165The [facility]ille HospitalComment on above:Result Comment: Negative <135 Equivocal 135 - 165 Positive >165 A positive result generally indicates exposure to the pathogen or administration of specific immunoglobulins, but it is not indication of active infection or stage of disease.Performed By: #### CMP, LIPID #### [facility] [address] [place] [address] Dr. Sd Felix AUTO DIFFon 13-47-8197UNUB #0.0 103/ulNormal0.0-0.1The Parkview HealthComment on above:Performed By: #### CMP, LIPID #### [facility] [address] [place] [address] Dr. Sd JarrettBasophils/100 WBC (Bld)0.7 %Normal0.2-2.0[facility] Comment on above:Performed By: #### CMP, LIPID #### [facility] [address] [place] [address] Dr. Sd Stevens #0.2 103/ulNormal0.0-0.7The Parkview HealthComment on above: Performed By: #### CMP, LIPID #### [facility] [address] [place] [address] Dr. Sd Lanosinophils/100 WBC (Bld)4.1 %Normal0.9-7.0[facility] Comment on above:Performed By: #### CMP, LIPID #### [facility] [address] [place] [address] Dr. Sd Lanrythrocyte distribution width (RBC) [Ratio]12.8 %Mpojgb69.0-15.0 The Parkview HealthComment on above:Performed By: #### CMP, LIPID #### [facility] [address] [place] [address] Dr. Sd JarrettHematocrit (Bld) [Volume fraction]38.1 %Eaeygb31.0-48.0[facility] HospitalComment on above:Performed By: #### CMP, LIPID #### [facility] [address] [place] [address] Dr. Sd JarrettHemoglobin (Bld) [Mass/Vol]12.3 g/kWLnnvvh30.0-16.0The Parkview HealthComment on above:Performed By: #### CMP, LIPID #### [facility] [address] [place] [address] Dr. Sd Doss #0.02 10e3/ulNormal0.00-0.03The Parkview HealthComment on above:Performed By: #### CMP, LIPID #### [facility] [address] [place] [address] Dr. Sd Doss %0.5 %Normal0.0-0.5The Parkview HealthComment on above: Performed By: #### CMP, LIPID #### [facility] [address] [place] [address] Dr. Sd Rao #1.2 103/ulNormal1.2-3.8The Parkview HealthComment on above:Performed By: #### CMP, LIPID #### [facility] [address] [place] [address] Dr. Sd Hillhocytes/100 WBC (Bld)26.2 %Udmhrc75.5-60.0The Parkview HealthComment on above:Performed By: #### CMP, LIPID #### [facility] [address] [place] [address] Dr. Sd AlexanderUAL DIFF REQNONormalThe Parkview HealthComment on above: Performed By: #### CMP, LIPID #### [facility] [address] [place] [address] Dr. Sd Villarreal (RBC) [Entitic mass]29.1 siMerznv71.7-34.0The Parkview HealthComment on above:Performed By: #### CMP, LIPID #### [facility] [address] [place] [address] Dr. Sd Donnelly (RBC) [Mass/Vol]32.3 g/iZGdockt66.9-35.2The Parkview HealthComment on above:Performed By: #### CMP, LIPID #### [facility] [address] [place] [address] Dr. Sd Basilio (RBC) [Entitic vol]90.3 yASrswzj90.0-99.0The Parkview HealthComment on above:Performed By: #### CMP, LIPID #### [facility] [address] [place] [address] Dr. Sd De La Torre #0.3 103/ulNormal0.3-0.8The [facility]view HealthComment on above:Performed By: #### CMP, LIPID #### [facility] [address] [place] [address] Dr. Sd Urrutiaocytes/100 WBC (Bld)7.2 %Normal1.7-12.0The [facility] Comment on above:Performed By: #### CMP, LIPID #### [facility] [address] [place] [address] Dr. dS Rose #2.7 103/ulNormal1.4-6.5The Parkview HealthComment on above:Performed By: #### CMP, LIPID #### [facility] [address] [place] [address] Dr. Sd Louisutrophils/100 WBC (Bld)61.3 %Arjjqz16.0-75.0The Parkview HealthComment on above:Performed By: #### CMP, LIPID #### [facility] [address] [place] [address] Dr. Sd Ferreira mean volume (Bld) [Entitic vol]9.3 fLCritically low 9.5-13.5The Parkview HealthComment on above:Performed By: #### CMP, LIPID #### [facility] [address] [place] [address] Dr. Sd JarrettPLT177 103/sbVjuzli466-210Tfr Parkview HealthComment on above: Performed By: #### CMP, LIPID #### [facility] [address] [place] [address] Dr. Sd JarrettRBC4.22 106/ulNormal4.20-5.40The Parkview HealthComment on above:Performed By: #### CMP, LIPID #### [facility] [address] [place] [address] Dr. Sd JarrettWBC4.4 103/ulNormal4.0-11.0Ohio[facility] Riverside Methodist HospitalComment on above: Performed By: #### CMP, LIPID #### [facility] [address] [place] [address] Dr. Sd JarrettPREG QUANT HCGon [id number] QUANT<1NormalOhiohealth Riverside Methodist Hospital Comment on above:Performed By: #### CMP, TSH, PREGQNT #### [facility] [address] [place] [address] Woody KarenHCG RANGESEE [facility] West HospitalComment on above:Result Comment: 5-50 0-1 WEEK 40-300 1-2 WEEKS 100-1,000 2-3 WEEKS 500-6,000 3-4 WEEKS 5,000-200,000 1-2 MONTHS 10,000-100,000 2-3 MONTHS 3,000-50,000 2ND TRIMESTER 1,000-50,000 3RD TRIMESTERPerformed By: #### CMP, TSH, PREGQNT #### [facility] [address] [place] [address] Woody KarenPROF 14(COMP METB)on 41-71-2789Drzdzmj [Mass/Vol]2.8 g/dLCritically low3.5-5.0[facility] Methodist HospitalComment on above:Performed By: #### CMP, TSH, PREGQNT #### [facility] [address] [place] [address] Woody KarenAlbumin/Globulin [Mass ratio]0.7 {ratio}NormalOhiohealth Riverside Methodist Hospital Comment on above:Performed By: #### CMP, TSH, PREGQNT #### [facility] [address] [place] [address] Woody KarenALP [Catalytic activity/Vol]78 U/ZDqqksp41-096VkeOhiohealth Riverside Methodist Hospital Comment on above:Performed By: #### CMP, TSH, PREGQNT #### [facility] [address] [place] [address] Woody KarenALT [Catalytic activity/Vol]74 U/LCritically high9-52Ohio[facility] Riverside Methodist HospitalComment on above:Performed By: #### CMP, TSH, PREGQNT #### [facility] [address] [id number] Woody KarenAnion gap [Moles/Vol]10.8 mmol/LNormalThe Parkview HealthComment on above:Performed By: #### CMP, TSH, PREGQNT #### [facility] [address] [address] Woody KarenAST [Catalytic activity/Vol]50 U/LCritically bayq98-56Kiz Parkview HealthComment on above:Performed By: #### CMP, TSH, PREGQNT #### [facility] [address] [address] Woody KarenBilirubin [Mass/Vol]0.2 mg/dLNormal0.2-1.3TAccess Hospital Dayton Comment on above:Performed By: #### CMP, TSH, PREGQNT #### [facility] [address] [address] Woody KarenCalcium [Mass/Vol]8.6 mg/dLNormal8.4-10.2[facility] Comment on above:Performed By: #### CMP, TSH, PREGQNT #### [facility] [address] [place] [address] Woody KarenChloride [Moles/Vol]105 mmol/BCtzvga38-266Glk [facility] Comment on above:Performed By: #### CMP, TSH, PREGQNT #### [facility] [address] [place], [place] [address] Woody KarenCO2 [Moles/Vol]28.2 mmol/VQlcuqg56.0-30.0[facility] Comment on above:Performed By: #### CMP, TSH, PREGQNT #### [facility] [address] [place] [address] Woody KarenCreatinine [Mass/Vol]0.53 mg/dLNormal0.52-1.04The [facility] Comment on above:Performed By: #### CMP, TSH, PREGQNT #### [facility] [address] [address] Woody KarenEGFR-AF MONEGASQUE>60Normal>=60The Parkview HealthComment on above: Performed By: #### CMP, TSH, PREGQNT #### [facility] [address] [address] Woody KarenEGFR-NON AF MONEGASQUE>60Normal>=60The Parkview HealthComment on above:Performed By: #### CMP, TSH, PREGQNT #### [facility] [address] [place] [address] Woody KarenGlobulin (S) [Mass/Vol]3.9 g/dLNormalThe [facility] HealthCommymichigan medical center on above:Performed By: #### CMP, TSH, PREGQNT #### [facility] [address] [place] [address] Woody KarenGlucose [Mass/Vol]99 mg/oXZtotbk67-499Ook [facility] HealthComment on above:Performed By: #### CMP, TSH, PREGQNT #### [facility] [address] [place] [address] Woody KarenPotassium [Moles/Vol]4.0 mmol/LNormal3.4-5.0[facility] Comment on above:Performed By: #### CMP, TSH, PREGQNT #### [facility] [address] [place] [address] Woody KarenProtein [Mass/Vol]6.7 g/dLNormal6.1-8.2The [facility] Medical Centerment on above:Performed By: #### CMP, TSH, PREGQNT #### [facility] [address] [place] [address] Woody KarenSodium [Moles/Vol]140 mmol/IXsqpjv978-575Cpx [facility] Comment on above:Performed By: #### CMP, TSH, PREGQNT #### [facility] [address] [place] [address] Woody KarenUrea nitrogen [Mass/Vol]10.0 mg/dLNormal7.0-17.0The [facility]view HealthComment on above:Performed By: #### CMP, TSH, PREGQNT #### [facility] [address] [address] Woody DuenasUrea nitrogen/Creatinine [Mass ratio]18.9 mg/mgSouthwest General Health CenterComment on above:Performed By: #### CMP, TSH, PREGQNT #### [facility] [address] [place] [address] Woody ShuklaHon 94-53-7008CSV1.598 uIU/mLNormal0.470-4.680The Parkview HealthComment on above:Performed By: #### CMP, TSH, PREGQNT #### [facility] [address] [place] [address] Woody ShuklaH RANGESEE BELOWNoPomerene HospitalComment on above:Result Comment: <0.34 UIU/ml HYPERTHYROID 0.34-5.60 UIU/ml EUTHYROID >5.60 UIU/ml HYPOTHYROIDPerformed By: #### CMP, TSH, PREGQNT #### [facility] [address] [place] [address] Woody DuenasVITAMIN B12on 05-69-9062Xjfhewbwd (Vitamin B12) [Mass/Vol]538.0 pg/vAYeyljn362.0-931.0Ohio[facility] Methodist HospitalComment on above:Performed By: #### VITB12 ####[facility] [address] [address]Woody DuenasMR OUTSIDE CD DICOM IMPORT -NBNRon 55-90-6017UV OUTSIDE CD DICOM IMPORT -NBNRImages were obtained outside of [facility] [id number] State East HospitalRS-CoV2 ANTIBODIES (IgM, IgG, IgA)on 02-79-5727APJI-CoV-2 (COVID-19) RNA ROXANA+probe Ql (Unsp spec) NegativeNormalNegativeThe Parkview HealthComment on above:Result Comment: This sample does not contain detectable SARS-CoV-2 antibodies. This negative result does not rule out SARS-CoV-2 infection. Correlation with epidemiologic risk factors and other clinical and laboratory findings is recommended. Serologic results should not be used as the sole basis to diagnose or exclude recent SARS-CoV-2 infection.Performed By: #### CVDABS ####[facility] [address] [place], [place] [address]Wcznwg KarenCovid-19 PCR (CVDTBH)on 25-74-4567ZHU StatementSEE BELOWNormal The [facility] on above:Result Comment: This test is not yet approved or cleared by the [place] FDA. When there are no FDA-approved or cleared tests available, and other criteria are met, FDA can make tests available under an emergency access mechanism called an Emergency Use Authorization (EUA). The EUA for this test is supported by the Campus of Health and Human Service?s (HHS?s) declaration [...] the context of a patients recent exposures andthe presence of clinical signs and symptoms consistent with SARS-CoV-2.Performed By: #### CVDTBH ####[facility] [address] [place], [place] [address]Izyqru KsrekEMTU-TdL-1 (COVID-19) RNA ROXANA+probe Ql (Unsp spec)Not detectedNormalNOT DETECTEDThe [facility] on above:Result Comment: This test is not yet approved or cleared by the [place] FDA. When there are no FDA-approved or cleared tests available, and other criteria are met, FDA can make tests available under an emergency access mechanism called an Emergency Use Authorization (EUA). The EUA for this test is supported by the Manager [facility] of Health and Human Service's (HHS's) declaration [...] no longer be used). Performed By: #### CVDTBH ####[facility] [address] [place], [place] [address]Tpntpe KarenMRI KNEE RT WO CONon [id number] KNEE RT WO CONEXAMINATION: MRI KNEE RT WO CON HISTORY: Internal [...] Electronically authenticated by: DIANA MONROY Date: 2020-09-11 14:09[facility] Health CenterCult,Bloodon [id number],BloodSpecimen Description .BLOOD Special Requests R ARM 6 ML Culture NO GROWTH 6 DAYS Report Status FINAL 11/05/2017[facility] Health MiamisburgComment on above:Performed By: #### BC ####[address] [place] [address] Cult,BloodSpecimen Description .BLOOD Special Requests LT HAND 5ML Culture NO GROWTH 6 DAYS Report Status FINAL 11/05/2017NormalMercy Cortland West Medical CenterComment on above:Performed By: #### BC ####[facility] [address] [place] [address] Cult,Bloodon [id number],BloodSpecimen Description .BLOOD Special Requests LT AC 7 ML Culture NO GROWTH 6 DAYS Report Status FINAL 11/04/2017[facility] MiamisburgComment on above:Performed By: #### BC ####[address] [address] Cult,Bloodon 96-10-6823Tsfi,BloodSpecimen Description .BLOODSpecial Requests RT F ARM 7 MLCulture POSITIVE BLOOD CULTURE, RN NOTIFIED: CATARINO Dunlap AT 0810 ON 10/30/17 DIRECT GRAM STAIN FROM BOTTLE: GRAM POSITIVE COCCI IN CHAINS AND PAIRSPNAFISH negative. Culture results to follow. VIRIDANS STREPTOCOCCUS GROUP SEVERAL MORPHOTYPES Report Status FINAL 11/01/2017[facility] City HospitalComment on above:Performed By: #### BC ####[address] [address] Cult,Urine,CCon [id number],Urine,CCSpecimen Description .CLEAN CATCH URINESpecial Requests NOT REPORTEDCulture GROUP D ENTEROCOCCUS 10to 50,000 CFU/MLReport Status FINAL 10/30/2017SUSCEPTIBILITYOrganism EGDMethod MICAmpicillin <=2 SUSCEPTIBLEPenicillin NOT REPORTEDCiprofloxacin 1 SUSCEPTIBLEErythromycin NOT REPORTEDGentamicin,High Level NOT REPORTEDLevofloxacin 1 SUSCEPTIBLELinezolid NOT REPORTEDNitrofurantoin <=16 SUSCEPTIBLESynercid NOT REPORTEDStreptomycin,Hi Level NOT REPORTEDTetracycline <=1 SUSCEPTIBLETigecyclineNOT REPORTEDVancomycin 1 SUSCEPTIBLEKettering Health MiamisburgComment on above:Performed By: #### CCUC ####[address] [place] [address] Progress Noteon [id number] IP Note OR TranscriptionNoBethesda North HospitalBasic Metabolic Profon 10-29-2017(cont.)NormalMccullough-Hyde Memorial HospitalComment on above:Result Comment: Average GFR for 30-39 years old: 107 mL/min/1.73sq mChronic Kidney Disease: <60 mL/min/1.73sq mKidney failure: <15 mL/min/1.73sq meGFR calculated using average adult body mass. Additional eGFR calculator available at:http://www.PubNub.[employer]/multiple_crcl_2012.htmSanta Clara Valley [facility] [address] [place] [address] Performed By: #### CDP, BMP ####[facility] [address] [place] [address] Anion gap12 mmol/LNormal 9-17[facility] HospitalComment on above:Performed By: #### CDP, BMP ####[facility] [address] [place] [address] Pwungtd0.6 mg/dLLow8.6-10.4[facility] HospitalComment on above:Performed By: #### CDP, BMP ####[facility] Of[address]bp[address] [place] [address] Smvssylm267 mmol/GFzwzjw15-948CjkowMccullough-Hyde Memorial HospitalComment on above: Performed By: #### CDP, BMP ####[facility] [address] [place] [address] LM874 mmol/HUzrhrk14-98QfmwuMccullough-Hyde Memorial HospitalComment on above:Performed By: #### CDP, BMP ####[facility] [address] [place] [address] Yeudjojvcx8.37 mg/dLLow0.50-0.90M[facility] Memorial HospitalComment on above:Performed By: #### CDP, BMP ####[facility] [address] [place] [address] eGFR (non-black) mL/min/{1.73_m2}Normal>60[facility] Memorial HospitalComment on above: Performed By: #### LUCY, BMP ####[facility] [address] [place] [address] Glucose mass conc90 mg/yYMfemmj37-61Dzrmz [facility]ermanente Medical CenterComment on above:Performed By: #### CDP, BMP ####[facility] [address] [place] [address] Potassium molar conc4.0 mmol/LNormal 3.7-5.3MercJohn F. Kennedy Memorial HospitalComment on above:Performed By: #### LUCY, BMP ####[facility] Cheng[address] [place] [address] Difrih291 mmol/QEmtvoh193-822MrkbbMccullough-Hyde Memorial HospitalComment on above:Performed By: #### LUCY, BMP ####[facility] [address] [place] [address] Urea nitrogen8 mg/dLNormal6-20[facility] Comment on above:Performed By: #### LUCY, BMP ####[facility] [address] [place] [address] BUN/CRE RatioNOT REPORTEDNormal9-20[facility] HospitalComment on above:Performed By: #### LUCY, BMP ####[facility] [address] [place] [address] Staging:NOT REPORTED NormalMccullough-Hyde Memorial HospitalComment on above:Performed By: #### LUCY, BMP ####[facility] [address] [place] [address] CBC with Diffon [id number]. Basophil0.03 k/uLNormal0.00-0.20[facility] HospitalComment on above:Performed By: #### LUCY, BMP ####[facility] [address] [place] [address] Abs.Neutrophil (Seg)3.73 k/uLNormal 1.50-8.10[facility] HospitalComment on above:Performed By: #### CDP, BMP ####[address] [address] Basophils/100 WBC Auto (Bld)1 %Normal0-2MercJohn F. Kennedy Memorial HospitalComment on above:Performed By: #### CDP, BMP ####[address] [address] Gwkchnrojbj6.19 10*3/uLNormal0.00-0.44[facility] HospitalComment on above:Performed By: #### CDP, BMP ####[address] [address] Eosinophils/100 leukocytes3 %Normal1-4[facility] Memorial HospitalComment on above:Performed By: #### CDP, BMP ####[address] [address] Erythrocyte distribution width Auto Ratio (RBC)13.1 %Normal 11.8-14.4[facility] Memorial HospitalComment on above:Performed By: #### CDP, BMP ####[address] [address] Erythrocytes (RBC)3.84 10*6/uLLow3.95-5.11[facility] Comment on above:Performed By: #### CDP, BMP ####[address] [address] Granulocytes/100 WBC (Bld)%Normal0.00-0.30[facility] Memorial HospitalComment on above:Result Comment: [address] [address] Performed By: #### CDP, BMP ####[address] [address] Hematocrit (HCT)34.9 %Low36.3-47.1MPalmdale Regional Medical CenterComment on above: Performed By: #### CDP, BMP ####[address] [place] [address] Hemoglobin mass conc (Bld)10.6 g/dLLow11.9-15.1MPalmdale Regional Medical CenterComment on above:Performed By: #### CDP, BMP ####[facility] [address]jcn[address] [place] [address] Immature granulocytes #/vol (Bld)0 %Bkmzan4PzkvlMccullough-Hyde Memorial HospitalComment on above:Performed By: #### CDP, BMP ####[address] [address] Vfgliljrdib6.70 10*3/uLNormal1.10-3.70[facility] Memorial HospitalComment on above:Performed By: #### CDP, BMP ####[facility] [address] [address] Lymphocytes/100 byfsroiymx91 %Sijwfs01-24TxwbwMccullough-Hyde Memorial HospitalComment on above: Performed By: #### CDP, BMP ####[facility] System[facility] [address] [address] CLI82.6 ruMypmxn50.2-33.5[facility] Comment on above:Performed By: #### CDP, BMP ####[facility] System[facility] [address]ajcyfxf[address] [place] [address] MCHC mass conc (RBC)30.4 g/hUFzgadl02.4-34.8 [facility] HospitalComment on above:Performed By: #### CDP, BMP ####[facility] [address] [place] [address] OJT29.9 fL Ilfaru59.6-102.9[facility] Memorial HospitalComment on above:Performed By: #### LUCY, BMP ####[address] [address] Monocytes0.36 10*3/uLNormal0.10-1.20[facility] HospitalComment on above:Performed By: #### LUCY, BMP ####[address] [address] Monocytes/100 leukocytes6 %Normal3-12[facility] Memorial HospitalComment on above:Performed By: #### LUCY, BMP ####[address] [address] Neutrophil (Seg)62 % Salsyj14-93ZmnaiMccullough-Hyde Memorial HospitalComment on above:Performed By: #### LUCY, BMP ####[address] [address] Platelet mean volume (PMV)9.9 fLNormal8.1-13.5[facility] Comment on above:Performed By: #### LUCY, BMP ####[address] [phone] 10*3/yWYdrybc193-160ZouuyMccullough-Hyde Memorial HospitalComment on above:Performed By: #### LUCY, BMP ####[address] [address] WBC (Leukocytes)6.0 10*3/uLNormal3.5-11.3MPalmdale Regional Medical CenterComment on above:Performed By: #### LUCY, BMP ####[address] [address] Auto Diff PerformedNOT REPORTEDKettering Health MiamisburgComment on above:Performed By: #### LUCY, BMP ####[facility] [address] [phone] morphologyNOT REPORTEDTwin City HospitalComment on above:Performed By: #### LUCY, BMP ####[address] [place] [address] PlateletsNOT REPORTEDKettering Health MiamisburgComment on above:Performed By: #### LUCY, BMP ####[address] [place] [address] WBC MorphologyNOT REPORTEDKettering Health MiamisburgComment on above:Performed By: #### LUCY, BMP ####[facility] [address]yzb[address]cjfml[address] [place], [place] [phone] Summaryon [id number] IP Note OR Inside Sales Supervisor NormalMccullough-Hyde Memorial HospitalHistory and Physicalon [id number] IP Note OR TranscriptionNormAshtabula County Medical CenterUA w/Reflex Cultureon 44-10-5288Zhrbsmfgq (direct)NegativeAbProMedica Flower Hospital Comment on above:Performed By: #### CORBIN ROSE ####[facility] [address] [place] [address] CommentCulture ordered based on defined criteria.[facility] Health MiamisburgComment on above:Result Comment: [facility] [address] [place] [address] [phone] By: #### CORBIN ROSE ####[facility] [address]esbntr[address] [place] [address] Acetaminophen mass concLARGEAbsaint luke's hospitalalUniversity Hospitals Health SystemComment on above:Performed By: #### CORBIN ROSE ####[address] [place] [address] Hemoglobin mass conc (Bld)NegativeSoutheast Missouri HospitalalUniversity Hospitals Health SystemComment on above:Performed By: #### CORBIN ROSE ####[facility] Jrgpblluagzt[address] [place], [place] [phone],UrPositiveAbnormalNEGMccullough-Hyde Memorial Hospital Comment on above:Performed By: #### MILTON UMSARAO ####[facility] Pox[address]zxctttp[address] [place], [place] [phone]LEARMccullough-Hyde Memorial HospitalComment on above:Performed By: #### CORBIN ROSE ####[facility] Ztkmwqazqwtj6274 [place], [place] [phone], colorDARK YELLOW AbnormalYELMerAnaheim Regional Medical CenterComment on above:Performed By: #### CORBIN ROSE ####[facility] F[address]ular[address] [place] [address] Urine, glucose presenceNegativeNobetsy johnson regional hospitalNEGMccullough-Hyde Memorial HospitalComment on above:Performed By: #### CORBIN ROSE ####[address]fs[address]re[address] [place], [place] [phone], leukocyte esterase presenceTRACEAbnoal NEGMccullough-Hyde Memorial HospitalComment on above:Performed By: #### MILTON UMJOANNE ####[facility] [address]ncmr[address] [place], [place] [phone], pH6.5 [pH]Normal5.0-8.0MerAnaheim Regional Medical CenterComment on above: Performed By: #### MILTON UMICAO ####[facility] Gyentypehnhi9936 [place], [place] [phone], protein presence3+AbnormalNEGMccullough-Hyde Memorial HospitalComment on above:Performed By: #### MILTON, UMICAO ####[facility] Gpvvbmzcogiq[address] [place], [place] [phone], specific gravity1.023Normal 1.005-1.030MerEureka Springs Hospitalent Medical CenterComment on above:Performed By: #### MILTON UMSARAO ####[address] [address] Urobilinogen,UrNormalNormalNORMMccullough-Hyde Memorial HospitalComment on above: Performed By: #### MILTON UMSARAO ####[address] [address] Urinalysis,Microon 44-88-8187Weigj, crystals in sedimentFEW AbnormalNONEMeMoreno Valley Community HospitalComment on above:Result Comment: URIC ACIDPerformed By: #### KEHINDE ROSEO ####[address] [address] Urine, yeast presence in sedimentFEWAbnormalBANNER MD ANDERSON CANCER CENTERE [facility]de Memorial HospitalComment on above:Result Comment: [address] [address] Performed By: #### MILTON UMSARAO ####[address] [address] -----NormalMccullough-Hyde Memorial HospitalComment on above:Performed By: #### MILTON UMICAO ####[address] [address] Urine WBC's2 TO 2Zgsjgr8-2NveviMccullough-Hyde Memorial HospitalComment on above: Performed By: #### UAFitz, UMICAO ####[address] [address] Urine, epithelial cells in fzrbjizb56 TO 59Ctupsh2-3TopluMccullough-Hyde Memorial HospitalComment on above:Performed By: #### UAFitz, UMICAO ####[facility] [address]gmkhxdovsl[address] [place] [address] Urine, erythrocytes0 TO 8Etyyrs8-8SetxkMccullough-Hyde Memorial HospitalComment on above:Result Comment: Reference range defined for non-centrifuged specimen.Performed By: #### MILTON, CORBIN ####[address]fmsabrj[address] [place] [address] Epithelial, RenalNOT RHSPYQKNPtvjtd6Jykub[address] [place], [place] [address]Comment on above:Performed By: #### MILTON, CORBIN ####[address] [place], [place] [phone] StrandsNOT REPORTEDLicking Memorial HospitalComment on above:Performed By: #### MILTON, CORBIN ####[facility] V[address]ttvelfv[address]of[address] [place], [place] [phone] ObservationsNOT REPORTEDNormalNRKettering Health HamiltonComment on above:Performed By: #### CORBIN ROSE ####[facility] [address] [place] [address] [phone] REPORTEDNoalKettering Health DaytonComment on above:Performed By: #### MILTON, UMSARAO ####[facility] Jeb[address] [place], [place] [phone], amorphous sediment presence in sedimentNOT REPORTEDLicking Memorial HospitalComment on above: Performed By: #### MILTON, UMICAO ####[facility] Ak[address]ymjhccizu[address] [place] [address] Urine, bacteria in sedimentNOT REPORTEDLicking Memorial HospitalComment on above:Performed By: #### UAFitz, UMICAO ####[facility] Iaoonclrocnp05[address] [place], [place] [phone], casts in sediment NOT REPORTEDNormal08M[facility]-Hyde Memorial HospitalComment on above:Performed By: #### UAFitz, UMICAO ####[facility] Qehuhbnscbbu8[address] [place] [phone] Metabolic Profon 10-28-2017(cont.)NormalMccullough-Hyde Memorial HospitalComment on above:Result Comment: Average GFR for 30-39 years old: 107 mL/min/1.73sq mChronic Kidney Disease: <60 mL/min/1.73sq mKidney failure: <15 mL/min/1.73sq meGFR calculated using average adult body mass. A dditional eGFR calculator available at:http://www.Connect/multiple_crcl_2012.htm[address] [address] Performed By: #### CDP, BMP ####[facility] [address] [address] Anion gap12 mmol/LNormal 9-17[facility] Memorial HospitalComment on above:Performed By: #### CDP, BMP ####[facility] [address] [place] [address] Oimijfe2.4 mg/dLLow8.6-10.4[facility] Memorial HospitalComment on above:Performed By: #### CDP, BMP ####[facility] [address] [place] [address] Qdyvreyp72 mmol/VRdowfz13-373AiykgMccullough-Hyde Memorial HospitalComment on above: Performed By: #### CDP, BMP ####[facility] [address] [place] [address] BP534 mmol/LBxfwck12-21RiiejMccullough-Hyde Memorial HospitalComment on above:Performed By: #### CDP, BMP ####[facility] Bybwcscfwtxa9280 [place] [address] Oozirhfsac8.44 mg/dLLow0.50-0.90M[facility] Memorial HospitalComment on above:Performed By: #### CDP, BMP ####[facility] [address]xs[address] [place] [address] eGFR (non-black) mL/min/{1.73_m2}Normal>60M[facility] Memorial HospitalComment on above: Performed By: #### LUCY, BMP ####T[facility] Cheng[address] [place] [address] Glucose mass amvp179 mg/bCRsiy03-28PpqohPalmdale Regional Medical CenterComment on above:Performed By: #### LUCY, BMP ####T[facility] [address] [place] [address] Potassium molar conc3.5 mmol/LLow3.7-5.3 [facility] HospitalComment on above:Performed By: #### LUCY, BMP ####[facility] Pmbfozpnhsuk[address] [place] [address] Lhjspj993 mmol/WGhyooo007-047QxknfMccullough-Hyde Memorial HospitalComment on above:Performed By: #### LUCY, BMP ####[facility] [address] [place] [address] Urea bgcbzewn99 mg/dLNormal6-20[facility] HospitalComment on above:Performed By: #### LUCY, BMP ####[facility] [address]ef[address] [place] [address] BUN/CRE RatioNOT REPORTEDNormal9-20[facility] Memorial HospitalComment on above:Performed By: #### LUCY, BMP ####[facility] [address] [place] [address] Staging:NOT REPORTED NormalMccullough-Hyde Memorial HospitalComment on above:Performed By: #### LUCY, BMP ####Tia [address] [place] [address] CBC with Diffon [id number]. Basophil0.03 k/uLNormal0.00-0.20[facility] HospitalComment on above:Performed By: #### LUCY, BMP ####Tia [address]xf[address] [place] [address] Abs.Neutrophil (Seg)5.25 k/uLNormal 1.50-8.10[facility] HospitalComment on above:Performed By: #### CDP, BMP ####Tia [address] [address] Basophils/100 WBC Auto (Bld)0 %Normal0-2MercJohn F. Kennedy Memorial HospitalComment on above:Performed By: #### CDP, BMP ####[address] [address] Brbnzvexhqi5.17 10*3/uLNormal0.00-0.44[facility] HospitalComment on above:Performed By: #### CDP, BMP ####[address] [address] Eosinophils/100 leukocytes2 %Normal1-4[facility] HospitalComment on above:Performed By: #### CDP, BMP ####[address] [address] Erythrocyte distribution width Auto Ratio (RBC)13.2 %Normal 11.8-14.4[facility] HospitalComment on above:Performed By: #### CDP, BMP ####[address] [address] Erythrocytes (RBC)4.39 10*6/uLNormal3.95-5.11[facility] Comment on above:Performed By: #### CDP, BMP ####[address] [address] Granulocytes/100 WBC (Bld)0.03 k/uLNormal 0.00-0.30[facility] HospitalComment on above:Result Comment: [facility] [employer] [address] [place] [address] Performed By: #### LUCY, BMP ####[facility] [address] [address] Hematocrit (HCT)38.7 %Dlaqpc76.3-47.1MPalmdale Regional Medical CenterComment on above:Performed By: #### LUCY, BMP ####[facility] [address] [phone] mass conc (Bld)12.2 g/uENohcdc92.9-15.1MPalmdale Regional Medical CenterComment on above:Performed By: #### LUCY, BMP ####[address] [phone] granulocytes #/vol (Bld)0 %Ntgdpo3JevkjMccullough-Hyde Memorial HospitalComment on above:Performed By: #### LUCY, BMP ####[address] [phone] 10*3/uLNormal1.10-3.70[facility] Memorial HospitalComment on above:Performed By: #### LUCY, BMP ####[address] [address] Lymphocytes/100 ltfpobxxzi51 %Poh25-21WvurhMccullough-Hyde Memorial HospitalComment on above:Performed By: #### LUCY, BMP ####[address] [phone] rdViepjg01.2-33.5[facility] Comment on above:Performed By: #### LUCY, BMP ####[address] [phone] mass conc (RBC)31.5 g/cCBfelqx64.4-34.8 [facility] HospitalComment on above:Performed By: #### LUCY, BMP ####[address] [place] [phone] fL Hxybdi88.6-102.9[facility] Memorial HospitalComment on above:Performed By: #### LUCY, BMP ####Tia [address] [place] [address] Monocytes0.44 10*3/uLNormal0.10-1.20[facility] HospitalComment on above:Performed By: #### LUCY, BMP ####Tia [address] [place] [address] Monocytes/100 leukocytes6 %Normal3-12[facility] Memorial HospitalComment on above:Performed By: #### LUCY, BMP ####Tia [address] [place] [address] Neutrophil (Seg)70 %High 36-65M[facility] HospitalComment on above:Performed By: #### LUCY, BMP ####Tia [address] [place] [address] Platelet mean volume (PMV)9.6 fLNormal8.1-13.5[facility] HospitalComment on above:Performed By: #### LUCY, BMP ####[address] [address] Kvkeyauyb934 10*3/bCZkht227-136VtzagAnaheim Regional Medical CenterComment on above:Performed By: #### LUCY, BMP ####iTa [address] [place] [address] WBC (Leukocytes)7.6 10*3/uLNormal3.5-11.3 [facility] HospitalComment on above:Performed By: #### LUCY, BMP ####[facility] [address] [place] [address] Auto Diff PerformedNOT REPORTEDNormalMccullough-Hyde Memorial HospitalComment on above: Performed By: #### CDP, BMP ####[facility] [address] [place] [address] Erythrocyte morphologyNOT REPORTEDNormalMccullough-Hyde Memorial HospitalComment on above:Performed By: #### CDP, BMP ####[facility] [address] [place] [address] PlateletsNOT REPORTED NormalMerAnaheim Regional Medical CenterComment on above:Performed By: #### CDP, BMP ####[facility] [address] [place] [address] WBC MorphologyNOT REPORTEDKettering Health MiamisburgComment on above: Performed By: #### CDP, BMP ####[facility] [address] [place] [address] ED Noteon [id number] IP Note OR TranscriptionNormalMccullough-Hyde Memorial HospitalHIM IP Note OR TranscriptionNormalMccullough-Hyde Memorial HospitalHIM IP Note OR TranscriptionNormalMccullough-Hyde Memorial Hospital HIM IP Note OR TranscriptionNormalTrinity Health Systemcy [facility] Provider Noteon [id number] IP Note OR TranscriptionNoBethesda North Hospital Vital Signs Date TimeVital SignValuePerforming UfvplwjckEtetqchs62-23-0103 12:11040Body mass index (BMI) [Ratio]23.56 kg/q7XfxzsqvztcSammi Estrada [employer] Work Phone: [facility] InstituteTjdpxqbyfc85-66-2241 12:11040Body djoxto00.33 kgSammi Estrada [employer]ENER Work Phone: [facility] InstituteDpmankiuks43-72-4500 12:11-040Diastolic blood ygxbrprp58 mm[Hg]Sammi Estrada [employer] OPENER Work Phone: noSaint John's HospitalSbtoroaldk13-65-1669 12:11-0400Respiratory rate18 /minSammi Estrada [employer]ANNEL [employer]ENER Work Phone: [facility] InstituteOemvrfevrw99-18-6422 12:11-0690ZxH4% (BldA) [Mass fraction]98 %Sammi Yusufi [employer]ENER Work Phone: [facility] InstituteAszqyflbdk11-33-4137 12:11-0400Systolic blood mm[Hg]Sammi Rockiani [employer]ENER Work Phone: [facility] InstituteEududuzmcq58-51-5503 15:30-0500Body tuxoeo046 cm Sammi Rockiani [employer]ENER Work Phone: [phone] [place], [place] [address]Vpqimqrdmu34-25-5949 15:30-0500Body mass index (BMI) [Ratio]24.98 kg/i7Sogfktleqo Graziani [employer] Work Phone: [phone] InstituteSdfmkrpxcp11-79-8536 15:30-0500Body bzuxtl21.96 kgJacmarisela Rockiani [employer]ENER Work Phone: [phone] InstituteCunxuczxui75-69-1177 15:30-0500Diastolic blood jirfcclf12 mm[Hg]Sammi Pranaviani [employer]ENER Work Phone: [phone] InstituteZfdxjiytaa19-28-3032 15:30-0500Systolic blood mm[Hg]Sammi Rockiani [employer]ENER Work Phone: [phone] InstituteDitlxkalex61-37-4183 10:30-0500Body yeeyus825.48 cmPaul[facility]11-08-2024 10:30-0500Body mass index (BMI) [Ratio]25.7 kg/h1YwqhjlidvPaulding County Hospital11-08-2024 10:30-0500Body ystnet31.95 kgPaulding County Hospital11-08-2024 10:30-0500Diastolic blood lnapowju86 mm[Hg][facility]11-08-2024 10:30-0500 Heart ccyh595 /minPaulding County Hospital11-08-2024 10:30-0500Systolic blood nrtyidzg555 mm[Hg][facility]11-07-2024 10:43-0500 Body zxwger376 cmEfrain Jean Baptiste MD Work Phone: [facility] InstituteZfvcomsqja42-45-4166 10:43-0500Body mass index (BMI) [Ratio]25.33 kg/q1SrbsynzEfrain Jean Baptiste MD Work Phone: [facility] InstituteJckobfvaic64-30-0764 10:43-0500Body .86 kgEfrain Jean Baptiste MD Work Phone: [phone] [place], [place] [address]Zqmjuwuyzw78-97-7526 13:10-0400Body lyzxdm593 cm Sammi Yusufi [employer] Work Phone: [phone] [place], [place] [address]Qthpvcndqa55-06-0985 13:10-0400Body mass index (BMI) [Ratio]24.8 kg/t6Lpzvbxnzam Graziani [employer] Work Phone: [phone] [place], [place] [address]Bsbvrulbxl06-65-2852 13:10-0400Body dhtlji36.5 kg Sammi Yusufi [employer]ENER Work Phone: [phone] [place], [place] [address]Ueipxyouwr75-76-1234 13:10-0400Diastolic blood mm[Hg]Sammi Rockiani [employer]ENER Work Phone: [phone] [place], [place] [address]Suspvnmxmh06-20-3192 13:10-0400Systolic blood mm[Hg]Sammi Pranaviani [employer]ENER Work Phone: [phone] [place], [place] [address]Kzyzylvzmo00-57-8218 11:20-0400Body ronbzk890.48 cmPaulding [facility] Hospital04-03-2024 11:20-0400Body mass index (BMI) [Ratio]25.6 kg/t2PyfcljwjnPaulding County Hospital04-03-2024 11:20-0400Body fmndjiwzomg47.5 [degF][facility]04-03-2024 11:20-0400Body .5 kgPaulding County Hospital04-03-2024 11:20-0400Diastolic blood eoucrgqe43 mm[Hg][facility]04-03-2024 11:20-0400 Heart wjlf471 /[facility]04-03-2024 11:20-0400 Respiratory rate18 /[facility]04-03-2024 11:20-0400 SaO2% (BldA) [Mass fraction]98 %[facility]04-03-2024 11:20-0400Systolic blood mm[Hg][facility] 12-25-2023 13:40-0500Body bwqyfz345.5 cmSammi Estrada [employer]ENER Work Phone: [facility] InstituteEsxgaojlkc16-09-3223 13:40-0500Body mass index (BMI) [Ratio]25.61 kg/h4SoxltlkfkwSammi Yusufi [employer] OPENER Work Phone: [facility] InstituteBymcdahekt54-86-4051 13:40-0500Body vvnden89.5 kg Sammi Yusufi [employer]ENER Work Phone: [facility] InstituteFywioilafp80-82-9615 13:40-0500Diastolic blood mm[Hg]Sammi Yusufi [employer]ENER Work Phone: [facility] InstituteGpwjsenwtr57-28-4715 13:40-0500Systolic blood gtsznnon730 mm[Hg]Sammi Yusufi [employer]ENER Work Phone: [facility] InstituteMokobuviwf32-74-3657 16:30-0500Body pgicdv260.48 cmPamela Linda Other [facility]01-05-2024 16:30-0500 Body mass index (BMI) [Ratio]26.01 kg/z6IvrsucLuisa Mckeon Other [facility] [employer] Other 01-05-2024 16:30-0500Body xrudplmslbq59 [degF]Luisa Linda Other [place] [employer] Other 01-05-2024 16:30-0500Body bsbalp37.5 kgLuisa Mckeon Other [facility]01-05-2024 16:30-0500 Respiratory rate18 /minLuisa Mckeon Other [place] [employer] Other 01-05-2024 16:30-2258JfP6% (BldA) [Mass fraction]97 % Luisa Mckeon Other [place] [employer] Other 12-26-2023 15:00-0500Body .48 cmJannettejared Karen Other [place] [employer] Other 12-26-2023 15:00-0500Body mass index (BMI) [Ratio] 26.12 kg/v3Albzlz Karen Other [place] [employer] Other 12-26-2023 15:00-0500Body lvibmdxsnlt48.3 [degF]Yelitza Jones Other [place] [employer] Other 12-26-2023 15:00-0500Body jagzcp37.77 kgJannettejared Karen Other [place] [employer] Other 12-26-2023 15:00-0500Diastolic blood oomnxugp25 mm[Hg] Yelitza Jones Other [facility] Other 12-26-2023 15:00-0500Systolic blood scuehqzj748 mm[Hg] Yelitza Jones Other [facility] Other 11-30-2023 09:50-0500Body noalzl435.48 cmAmanda Kari Other [facility] [employer] Other 11-30-2023 09:50-0500Body mass index (BMI) [Ratio] 27.43 kg/n7Luhwnf Kari Other [facility] Other 11-30-2023 09:50-0500Body jnkrbvgdduy30.1 [degF]Hilary Kari Other [employer] Other 11-30-2023 09:50-0500Body fqrqiu40.04 kgAmanda Kari Other [employer] Other 11-30-2023 09:50-0500Respiratory rate18 /minAmanda Kari Other [employer] Other 11-30-2023 09:50-7992UiU5% (BldA) [Mass fraction]99 % Hilary Kari Other [employer] Other 09-19-2023 09:45-0400Body gxawpp827.48 cmYelitza Jones Other [employer] Other 09-19-2023 09:45-0400Body mass index (BMI) [Ratio] 26.15 kg/w2XxuokzYelitza Jones Other [employer] Other 09-19-2023 09:45-0400Body fpxjbuweslw89.2 [degF]Yelitza Jones Other [employer] Other 09-19-2023 09:45-0400Body huuymx52.86 kgYelitza Jones Other [employer] Other 09-19-2023 09:45-0400Diastolic blood ghzshuxw10 mm[Hg] Yelitza Jones Other [employer] Other 09-19-2023 09:45-0400Systolic blood dayzpsuv821 mm[Hg] Yelitza Jones Other [employer] Other 05-01-2023 10:30-0400Body osfngt555.48 cmYelitza Jones Other [facility] [employer] Other 05-01-2023 10:30-0400Body mass index (BMI) [Ratio] 28.16 kg/z1Zczyvo Braun Other [facility] [employer] Other 05-01-2023 10:30-0400Body kbehycohogm32.6 [degF]Yelitza Karen Other [employer] Other 05-01-2023 10:30-0400Body .85 kgYelitza Karen Other [facility] Other 05-01-2023 10:30-0400Diastolic blood qornmmni59 mm[Hg] Yelitza Jones Other [place] [employer] Other 05-01-2023 10:30-2888OxC1% (BldA) [Mass fraction]99 % Yelitza Jones Other [employer] Other 05-01-2023 10:30-0400Systolic blood iceyvyyg227 mm[Hg] Yelitza Jones Other [facility] [employer] Other Encounters Encounter DateEncounter TypeCare ProviderFacilityStart: 09-04-2025 End: 99-46-9957TallidZgyvgik W Bauer MD Work Phone: [facility] 210Comment on above: Intractable chronic migraine without aura and without status migrainosus; ADD (attention deficit disorder) without hyperactivityStart: 08-02-2025 End: 80-37-4039GpgkmjUekapcn W Bauer MD Work Phone: [facility] 210Comment on above:ADD (attention deficit disorder) without hyperactivityStart: 07-15-2025 End: 78-94-5780Dtossk flowsheetJarrodcqueline Melva Yusufi [employer]ENER Work Phone: noms NEUROLOGYStart: 07-15-2025 End: 17-49-4405Mmcflv flowsheetJarrodcwilline Melva Yusufi [employer] OPENER Work Phone: noms NEUROLOGYStart: 07-15-2025 End: 58-09-6506Ckwcxl outpatient visit 15 minutesAmyline Melva Yusufi [employer] OPENER Work Phone: [facility] NeurologyComment on above:Intractable chronic migraine without aura and without status migrainosus (Primary Dx)Start: 07-15-2025 End: 84-22-0341fpxhmdaiktNPATLQJCTZ Melva YUSUFINot AvailableStart: 07-04-2025 End: 57-74-1212FutwwbXdvjayucto Melva Yusufi [employer]ENER Work Phone: noMS [facility] 210Comment on above:ADD (attention deficit disorder) without hyperactivityStart: 06-15-2025 End: 79-43-8182CajkclXhtwemrimd Melva Yusufi [employer] OPENER Work Phone: [facility] NeurologyComment on above:Intractable chronic migraine without aura and without status migrainosusStart: 06-03-2025 End: 50-01-3005NuegeyDwothdwwjf Melva Yusufi [employer]ENER Work Phone: [facility]oms [facility] 210Comment on above:ADD (attention deficit disorder) without hyperactivityStart: 06-01-2025 End: 43-59-6094JasozbRlaxoudytu Melva Rockiani [employer]ENER Work Phone: noms [facility] 210Comment on above:ADD (attention deficit disorder) without hyperactivityStart: 05-06-2025 End: 53-82-6100NdigeyTxzeiqixak Melva Rockiani [employer]ENER Work Phone: [facility] 210Comment on above:ADD (attention deficit disorder) without hyperactivityStart: 04-07-2025 End: 58-52-7911WktonxNmntgjz W Bauer MD Work Phone: [facility] 210Comment on above:ADD (attention deficit disorder) without hyperactivityStart: 03-25-2025 End: 18-85-0587Oefvzjzh Result EncounterAmycrystal Melva Estrada [employer]ENER Work Phone: noms External Department UnsolicitedStart: 03-25-2025 End: 81-86-3861Kegrocbq Result EncounterAmycrystal Melva Estrada [employer]ENER Work Phone: noms External Department UnsolicitedStart: 03-24-2025 End: 54-73-5252Rlmmar outpatient visit 15 minutesAmycrystal Melva Estrada [employer] OPENER Work Phone: [facility]oms [facility] NEURComment on above:Intractable chronic migraine without aura and without status migrainosus (CMS/HCC) (Primary Dx); Cognitive decline; Other specified hypothyroidism; Autoimmune disease (CMS/HCC)Start: 03-24-2025 End: 44-44-7737gfxxstbkpzKHHYUKRINO Melva Vickyt AvailableStart: 03-24-2025 End: 54-16-1909Ubhmtj flowsheetJarrodhank Melva Estrada [employer] OPENER Work Phone: noms NEUROLOGYStart: 03-24-2025 End: 74-26-2224Jdrwen flowsLiamhank Melva Estrada [employer] OPENER Work Phone: noms NEUROLOGYStart: 03-10-2025 End: 35-19-3854BerzgiOpbfnzm W Bauer MD Work Phone: [facility] 210Comment on above:ADD (attention deficit disorder) without hyperactivityStart: 02-08-2025 End: 66-55-1480WpbbvnPscqbal C Windnagel [employer] OPENER Work Phone: noms [facility] 210Comment on above:ADD (attention deficit disorder) without hyperactivityStart: 01-25-2025 End: 83-29-7355vlwethaxvdKSISFSX G TESMONDNot AvailableStart: 01-06-2025 End: 03-19-1352WjpezwDasefja W Bauer MD Work Phone: [facility] 210Comment on above:ADD (attention deficit disorder) without hyperactivityStart: 12-09-2024 End: 74-62-4015Lwxxcj outpatient visit 15 minutesJahank Melva Rockginny [employer] OPENER Work Phone: noms [facility] NEURComment on above:Intractable chronic migraine without aura and without status migrainosus (CMS/HCC) (Primary Dx); Autoimmune disease (CMS/HCC)Start: 12-09-2024 End: 26-89-1560zsvixrlliqSZCDZKJXBF Melva OHINot AvailableStart: 12-09-2024 End: 34-25-4850Lcckga flowsheetJarrodcwilline Melva Yusufi [employer] OPENER Work Phone: noms NEUROLOGYStart: 12-09-2024 End: 19-34-4614Fykear flowsheetJarrodcwilline Melva Estrada [employer] OPENER Work Phone: noms NEUROLOGYStart: 12-05-2024 End: 67-45-6344BgqevgAzecjmk W Bauer MD Work Phone: noms [facility] 210Comment on above:ADD (attention deficit disorder) without hyperactivityStart: 10-27-2024 End: 85-00-9855HkuhxeNrmsnmr W Bauer MD Work Phone: noms [facility] 210Comment on above:ADD (attention deficit disorder) without hyperactivityStart: 10-11-2024 End: 48-86-1900xlklpknitnVjrett M BaileyFacility:[facility] Hospitaltart: 09-17-2024 End: 60-94-6773Oefwhzkfg Result EncounterEfrain Jean Baptiste MD Work Phone: noms External Department UnsolicitedStart: 09-17-2024 End: 94-77-5915Vxhyzjzab Result EncounterEfrain Jean Baptiste MD Work Phone: noms External Department UnsolicitedStart: 09-17-2024 End: 50-86-3250fmtgtobbwsQtvcbydqlLuther[facility] Hospital Work Phone: Start: 09-17-2024 End: 55-91-2070Tuxkzop encounter procedureGood Hope Hospital [facility] Work Phone: Start: 09-16-2024 End: 42-09-5221Bfmlrimellisa Jean Baptiste MD Work Phone: noms NEUROLOGYStart: 09-16-2024 End: 08-48-7410Ysiifp Magdiel Jean Baptiste MD Work Phone: noms NEUROLOGYStart: 09-16-2024 End: 09-25-0862lbzpevtlgvAOVJQBV W BAUERNot AvailableStart: 09-16-2024 End: 28-70-6339Vwmgiu outpatient visit 25 minutesBrechase Jean Baptiste MD Work Phone: noms [facility] NEURComment on above:Chronic migraine without aura, not intractable, without status migrainosus (CMS/HCC) (Primary Dx); Chiari malformation type I (CMS/HCC); ADD (attention deficit disorder) without hyperactivity; Demyelinating disease of central nervous system (HCC) (CMS/HCC)Start: 09-15-2024 End: 83-37-5786WkrcymIbjvlzv W Bauer MD Work Phone: [facility] 210Comment on above:ADD (attention deficit disorder) without hyperactivityStart: 08-26-2024 End: 80-82-1353LgvaxdTchjpwdlsx M Graziani [employer] OPENER Work Phone: noms [facility] 210Comment on above:ADD (attention deficit disorder) without hyperactivityStart: 08-19-2024 End: 79-94-2633RmhzopAithlpmnvm M Graziani [employer] OPENER Work Phone: noms SWS NEURComment on above:Intractable chronic migraine without aura and without status migrainosus (CMS/HCC) (Primary Dx) Start: 07-27-2024 End: 66-74-5997Yqdvpnjqz Yasmin Frye Graziani [employer] OPENER Work Phone: noms H NEURO 210Start: 07-23-2024 End: 33-40-9508RxozvbBhgaojcnnl M Graziani [employer] OPENER Work Phone: noms SWS NEURComment on above:ADD (attention deficit disorder) without hyperactivityStart: 07-15-2024 End: 27-76-5314Igvkyw flowsheetJarrodhank Melva Estrada [employer] OPENER Work Phone: noms BM NEUROLOGYStart: 07-15-2024 End: 40-61-8056Rbsmxh flowsheetJarrodadriannewilcrystal Melva Estrada [employer] OPENER Work Phone: noms BM NEUROLOGYStart: 07-15-2024 End: 30-20-3755Xhwqgi outpatient visit 15 minutesAmycrystal Melva Estrada [employer] OPENER Work Phone: noms SWS NEURComment on above:Intractable chronic migraine without aura and without status migrainosus (CMS/HCC) (Primary Dx); Autoimmune disease (CMS/HCC)Start: 03-10-2024 End: 42-49-5438hjytrkvqxiOswysu E BraunFacility:[facility] Hospitaltart: 03-04-2024 End: 11-87-0955dfqiggyakcCrfmtm John [facility]Ohio[facility] Work Phone: Start: 03-04-2024 End: 58-76-9645Xrusechq ReferredMD Umberto Jung Work Phone: [facility]-LAB Path Spec [facility] HospStart: 02-11-2024 End: 37-81-0489rwhhlxpvefEpqrkomri [facility] Work Phone: Start: 02-11-2024 End: 92-78-1124Kcwlctk encounter procedureGood Hope Hospital Physician [facility] Work Phone: Start: 15-96-7546Jlp-patient / Non-visitGood Hope Hospital Physician [facility] Work Phone: Start: 18-44-9027Edehcg flowsheetSammi Estrada [employer] OPENER Work Phone: noms BM NEUROLOGYStart: 64-90-1208Mvegyr flowsheet Sammi Estrada [employer] OPENER Work Phone: noms BM NEUROLOGYStart: 12-25-2023 End: 90-69-0889Udowgia encounter procedureJahank Estrada [employer] OPENER Work Phone: noms [facility] NEURComment on above:Intractable chronic migraine without aura and without status migrainosus (CMS/HCC) (Primary Dx); ADD (attention deficit disorder) without hyperactivityStart: 11-14-2023 End: 38-35-9602bjjrirnstqKfziqo Dymond Other [employer] Other Start: 32-49-7210Dfecfc outpatient visit 15 minutes Luisa MckeonVALLEYWISE [facility] ClydeStart: 21-30-6662Ydiomgaoj encounterMarlobito JonesVALLEYWISE [facility] ClydeStart: 11-14-2023 End: 64-03-5605Nmcdwlr encounter procedureFiradiss Physician Group-[facility] Billy Work Phone: Start: 11-04-2023 End: 65-89-8033uiyyzlyltbIzhqbq Braun Other [facility] [employer] Other Start: 51-76-2378Iluobc outpatient visit 15 minutes Yelitza LópezSelect Specialty Hospital - Durham ClinicStart: 10-14-2023 End: 77-69-0008xvkysotsceRbrnnw Braun Other [employer] Other Start: 73-46-3665Uzytjtmow encounterMarlobito JonesMercy Health [facility] ClinicStart: 10-09-2023 End: 58-09-0330wpjkxlmcjxOazdnh Grob Other [employer] Other Start: 75-02-8910Suzmuv outpatient visit 15 minutes Hilary LeblancMaple Grove Hospital [facility] ClydeStart: 07-29-2023 End: 74-00-3869mswjjaiijrCtpccv Jones Other [employer] Other Start: 21-64-7485Uodynpric for general adult medical examination without abnormal findingsMarcijared [facility] Medical ClinicStart: 99-02-7823Uzwoqz outpatient visit 15 minutesMarlobito [facility] Start: 07-16-2023 End: 25-49-1390nlnagqnqzmFtdwse Jones Other [employer] Other Start: 15-42-9989Xhaczacfn encounterMarcia Deana [facility] Medical ClinicStart: 05-20-2023 End: 18-85-1386tajaiiylydDuossc Jones Other [employer] Other Start: 87-77-6917Kjoqjwrsc encounterMarcia Deana [facility] ClinicStart: 03-10-2023 End: 75-37-7460qdxqdddiqwXbeblt Jones Other [employer] Other Start: 90-40-0011Fcisfq outpatient visit 15 minutes Yelitza [facility] ClinicStart: 12-16-2022 End: 39-40-2804ipxtqsqeduPfklrx Jones Other [employer] Other Start: 27-20-3692Njveywrxb encounterMarcijared [facility] Medical ClinicStart: 12-12-2022(Televisit) TelevisitMarcijared [facility] Medical ClinicStart: 12-12-2022 End: 57-71-0623zycczbicjrCeoqin Jones Other [employer] Other Start: 09-12-2022 End: 05-08-5432ixfmhgxddkVV Yelitza Jones Work Phone: [facility] Work Phone: Start: 09-12-2022 End: 03-18-9991Raqcohk encounter procedureMD Torre Karen Work Phone: [facility] CampusStart: 84-96-8351Rqlpu health examinationYelitza Jones Other [place] [employer] Other Start: 46-41-4486Priuagbde for general adult medical examination without abnormal findingsSumma Healthtart: 08-14-2021 End: 46-10-6092emghwrmiojNCEWHF FAWWADFacility:P5Myasi: 08-14-2021 End: 50-57-6300Sskxlbgyg for general adult medical examination without abnormal findingsJOHN DOUGLAS FRENCH CENTERDFacility:F4Bccxy: 74-83-3237uxkxgyepaqKG MARCIA E BRAUN Facility:X6Drnwj: 07-05-2021 End: 87-50-7030nlzdjhlxviZB YELITZA JONESFacility:U0Rgxcj: 06-12-2021 End: 25-65-5307tzljqxmgesFW YELITZA JONESFacility:G0Guzyr: 05-22-2021 End: 63-00-0451yxjkspovctRY UMBERTO JUNGFacility:E4Pmcnz: 05-18-2021 End: 44-82-8304endnjflgeqMH DOCTOR MISCFacility:M6Iwmho: 05-07-2021 End: 88-81-9763wrhetiwcosPO YELITZA JONESFacility:O0Lgeja: 03-23-2021 End: 94-53-3316qescerllmtGF YELITZA JONESFacility:T0Xhhxa: 02-16-2021 End: 32-98-6726mippxzebdiIC YELITZA JONESFacility:I7Ghxko: 12-23-2020 End: 96-42-2774odlqugqzgsVD DOCTOR MISCFacility:L3Damln: 55-31-3731Mfmjnbafl for antibody response examinationDR YELITZA JONESTriHealthtart: 11-13-2020 End: 40-38-9280iblvujhqhnXH YELITZA Ma KARENFacility:J1Rijpx: 11-13-2020 End: 90-40-3255Oyetzjtkn for antibody response examinationDR TORRE Anil KAREN Facility:E2Fcxkp: 10-21-2020 End: 36-44-7091vqxwwzemrjTA YELITZA Ma KARENFacility:Z4Wxiud: 09-11-2020 End: 54-20-7342dzajekdjcfPSVELFPE CALLAHANFacility:W4Szcoe: 10-28-2017 End: 30-78-1450HlskljgjwsZZLLVT [facility] Procedures DateProcedureProcedure DetailPerforming ClinicianStart: 01-24-8429Oqgnpqeuglp nuclear antigen antibody any methodSammi Estrada [employer] Work Phone: Start: 11-27-5801Ojtss of free thyroxineSammi Estrada [employer] Work Phone: Start: 41-64-8670OQM VITAMIN D 25 OHBrechase Jean Baptiste MD Work Phone: Start: 91-56-6269Avsew Strep (POC)Start: 10-30-2017 DISCHARGE PATIENTMARCIA [facility]: 91-91-4151QAOWAIM BLOOD #1MARCIA [facility] Centerart: 56-19-9668VBZDZHKL OXYGEN THERAPY PROTOCOLWHITE MOUNTAIN REGIONAL MEDICAL CENTERCIA [facility]: 57-60-6891DXTOMD AND OUTPUTMARCIA [facility]: 34-28-9393MANGYGO BLOOD #1MARCIA [facility]: 07-69-9945YTVJ GENERALMARCIA [facility]: 52-05-6147LHVMVBFN OXYGEN THERAPY PROTOCOLWHITE MOUNTAIN REGIONAL MEDICAL CENTERCIA [facility]: 73-18-1825CMHVW METABOLIC PANELMARCIA [facility]: 58-34-7962ZGT WITH AUTO DIFFERENTIALMARCIA [facility]: 48-45-8245EIBLUQ AND OUTPUTMARCIA [facility] Centerart: 13-60-0502Fwcsnpkyshz urinalysisWHITE MOUNTAIN REGIONAL MEDICAL CENTERCIA [facility]: 22-60-6844WS W/REFLEX CULTUREWHITE MOUNTAIN REGIONAL MEDICAL CENTERCIA [facility]: 10-67-8830YCESQ CULTURE CLEAN CATCHCape Fear Valley [facility]: 28-29-6322SLCPWURUB MONITORINGYELITZA [facility]: 33-96-7100CJMGCYL DIET TOLERATED (NURSING COMMUNICATION)YELITZA KARENDow [place]: 32-00-0575IPPL CODEYELITZA [facility]: 20-10-0713QTRXZSGL OXYGEN THERAPY PROTOCOL YELITZA KARENDow [place]: 68-08-9831UJTMMQ AND OUTPUTYELITZA [facility]: 10-28-2017 REASON FOR NO MECHANICAL VTE PROPHYLAXISYELITZA [facility]: 62-49-6033DMMYP SIGNS YELITZA [facility]: 03-68-8240SBNSMWN STATUS (FROM ED OR OR/PROCEDURAL)YELITZA [place]ARENDow [place]: 06-43-2161JLKJJHSH PATIENTYELITZA [facility]: 85-87-7525MZ CONSULT TO OB GYNWHITE MOUNTAIN REGIONAL MEDICAL CENTERLOBITO [facility]: 09-73-3277MJJAB METABOLIC PANELYELITZA [facility]: 23-77-6759YYL WITH AUTO DIFFERENTIALWHITE MOUNTAIN REGIONAL MEDICAL CENTERLOBITO [facility]: 54-29-5455CKUPCE PERIPHERAL IVYELITZA [facility]: 71-46-9260Qlvnwgs examination of Macy Jones Other Hyperlipidemia screeningYelitza Jones Other Plan of Treatment DateCare ActivityDetailAuthorStart: 10-13-2025 End: 41-38-0150Kjcjppg encounter hklxkwwow93/04/2025 10:45 AM EST Procedure Visit [facility] [address] [facility] [address] [place] [address] Sammi Estrada, [employer]ENER [address] [facility] [address] [id number] [facility] NeurologyStart: 07-15-2025 End: 38-78-3489Gnqghpj encounter procedureNOMS Stacie NeurologyComment on above:ArrivedStart: 24-98-9360Rnmclkkhj vaccinationInfluenza Vaccine (#1)NOMPaul HealthcareStart: 06-23-2025 End: 81-20-3413Wmfzrnl encounter procedureNOMS SWS NEURStart: 03-24-2025 End: 16-25-4520Jfvoerg encounter procedureNOMS SWS NEURComment on above:Arrived Start: 03-24-2025 End: 95-96-8220CSQ ANTIBODY ([facility])SSA ANTIBODY ([facility]) Lab Routine Cognitive decline Other specified hypothyroidism Autoimmune disease (CMS/HCC) Expected: 03/24/2025 (Approximate), Expires: 03/24/2026[facility] Work Phone: Comment on above:Expected: 03/24/2025 (Approximate), Expires: 03/24/2026Start: 03-24-2025 End: 30-44-6432RVA ANTIBODY ([facility])SSB ANTIBODY ([facility]) Lab Routine Cognitive decline Other specified hypothyroidism Autoimmune disease (CMS/HCC) Expected: 03/24/2025 (Approximate), Expires: 03/24/2026NOMS HealthcareComment on above:Expected: 03/24/2025 (Approximate), Expires: 03/24/2026Start: 12-23-2024 End: 02-56-1866Ixuuwsr encounter lbsrmfotx66/13/2025 1:00 PM EST Office Visit [facility] [address] [address] Efrain Jean Baptiste MD [address] [facility] [address] [address] [facility] NEURStart: 12-10-2024 End: 77-24-4101Vgbyscdynx factor [Units/volume] in Serum or PlasmaRheumatoid factor Lab Routine Autoimmune disease (CMS/HCC) Expected: 12/10/2024 (Approximate), Expires: 12/09/2025NO[facility] HealthcareComment on above:Expected: 12/10/2024 (Approximate), Expires: 12/09/2025Start: 12-09-2024 End: 48-81-4119Ppiskyj encounter procedureNOMS [facility] NEURComment on above:Arrived Start: 12-09-2024 End: 12-09-2025 reactive protein [Mass/volume] in Serum or PlasmaC-reactive protein Lab Routine Autoimmune disease (CMS/HCC) Expected: 12/09/2024 (Approximate), Expires: 12/09/2025[facility] HealthcareComment on above:Expected: 12/09/2024 (Approximate), Expires: 12/09/2025Start: 12-09-2024 End: 70-17-0474JZI W Auto Differential panel - BloodCBC and differential Lab Routine Autoimmune disease ([facility]) Expected: 12/09/2024 (Approximate), Ex douglas: 12/09/2025[facility] HealthcareComment on above:Expected: 12/09/2024 (Approximate), Expires: 12/09/2025Start: 12-09-2024 End: 38-75-3278Codbjvgrlsw sedimentation rateSedimentation rate, automated Lab Routine Autoimmune disease ([facility]) Expected: 12/09/2024 (Approximate), Expires: 12/09/2025[facility] HealthcareComment on above:Expected: 12/09/2024 (Approximate), Expires: 12/09/2025Start: 12-09-2024 End: 08-94-1349Ckwfprv Ab [Titer] in Serum by ImmunofluorescenceANA Lab Routine Autoimmune disease ([facility]) Expected: 12/09/2024 (Approximate), Expires: 12/09/2025[facility] Healthcare Work Phone: Comment on above:Expected: 12/09/2024 (Approximate), Expires: 12/09/2025Start: 12-09-2024 End: 74-60-0988BUA ANTIBODY ([facility])SSA ANTIBODY ([facility]) Lab Routine Autoimmune disease ([facility]) Expected: 12/09/2024 (Approximate), Expires: 12/09/2025[facility] HealthcareComment on above:Expected: 12/09/2024 (Approximate), Expires: 12/09/2025Start: 12-09-2024 End: 77-10-0106HPB ANTIBODY ([facility])SSB ANTIBODY ([facility]) Lab Routine Autoimmune disease ([facility]) Expected: 12/09/2024 (Approximate), Expires: 12/09/2025[facility] HealthcareComment on above:Expected: 12/09/2024 (Approximate), Expires: 12/09/2025Start: 10-22-2024 End: 33-67-6435Xbxffsi encounter haiarsnyb28/13/2024 10:15 AM EST Procedure Visit [facility] [address] [facility] [address] [place] [address] Sammi Estrada, [employer] OPENER [address] [place] [address] [facility] NEURStart: 09-16-2024 End: 69-20-020817896127-wcxzfeoztjlxdu D3 [Mass/volume] in Serum or PlasmaVitamin D 25 hydroxy Total Lab Routine Demyelinating disease of central nervous system (HCC) ([facility]/HCC) Expected: 09/16/2024 (Approximate), Expires: 09/16/2025[facility] HealthcareComment on above:Expected: 09/16/2024 (Approximate), Expires: 09/16/2025Start: 09-16-2024 End: 05-26-6371Hokpdkw-Dela Cruz virus VCA, IgGEpstein-Dela Cruz virus VCA, IgG Lab Routine Demyelinating disease of central nervous system (HCC) (CMS/HCC) Expected: 09/16/2024 (Approximate), Expires: 09/16/2025[facility] HealthcareComment on above:Expected: 09/16/2024 (Approximate), Expires: 09/16/2025Start: 09-16-2024 End: 21-64-7981Pujwrzw-Dela Cruz virus VCA, IgMEpstein-Dela Cruz virus VCA, IgM Lab Routine Demyelinating disease of central nervous system (HCC) (CMS/HCC) Expected: 09/16/2024 (Approximate), Expires: 09/16/2025[facility] HealthcareComment on above:Expected: 09/16/2024 (Approximate), Expires: 09/16/2025Start: 09-16-2024 End: 73-95-7379AU Brain WO and W contrast IVMR brain w and wo contrast routine Imaging Routine Chiari malformation type I ([facility]/HCC) Expected: 09/16/2024 (Approximate), Expires: 09/16/2025[facility] Healthcare Work Phone: Comment on above:Expected: 09/16/2024 (Approximate), Expires: 09/16/2025Start: 09-16-2024 End: 24-60-0358Slxnoqm Ab [Titer] in Serum by ImmunofluorescenceANA Lab Routine Demyelinating disease of central nervous system (HCC) (CMS/HCC) Expected: 09/16/2024 (Approximate), Expires: 09/16/2025[facility] HealthcareComment on above: Expected: 09/16/2024 (Approximate), Expires: 09/16/2025Start: 09-16-2024 End: 28-13-2438Rgslnan encounter ehoqomkco20/07/2024 10:20 AM EST Office Visit [facility] [address] [place] [address] Efrain Jean Baptiste MD [address] [place] [address], [place] [id number] [facility] NEURStart: 90-92-4202Kbeiyxwdk vaccinationInfluenza Vaccine (#1)NOM HealthcareComment on above:Postponed from 07/11/2023 (Patient Refused)Start: 07-15-2024 End: 56-38-2282Wdgtbts encounter bmexprmvd36/05/2024 1:00 PM EDT Procedure Visit [facility] [address] [facility] [address] [place] [phone] Sammi Estrada, [employer] OPENER [address] [place] [address], [place] [address] ArrivedNOMOUNTAIN VIEW [facility] NEURComment on above: ArrivedStart: 98-60-9289Kydiemupg vaccinationInfluenza Vaccine (#1)NOM HealthcareStart: 04-01-2024 End: 01-26-3491Wiyrgcn encounter mjpzjoguy63/23/2024 1:00 PM EDT Procedure Visit [facility] [address] [facility] [address] [place] [address] Sammi Estrada, [employer] OPENER [address] [place] [address], [place] [address] [facility] NEURStart: 01-01-2024 End: 51-75-0129Izotfnl encounter idcjirjam14/22/2024 10:30 AM EST Office Visit [facility] [address] [place] [address] Efrain Jean Baptiste MD [address] [facility] [address] [phone] [facility] NEURStart: 12-29-2023 End: 02-16-6764Dxuxgujx Owwguqb9412/29/2023 1:00 PM EST Clinical Support [facility] [address] [place] [phone] [facility]Y[place] Start: 99-60-9174Kyznfnvqd for malignant neoplasm of breastMammogramNOMS HealthcareStart: 54-95-6921Tqukxgmyh vaccinationInfluenza Vaccine (#1)[facility] HealthcareStart: 36-26-1497XJ Unspecified body regionMercy Health Urbana Hospitaltart: 77-68-4189JRA of headMR head/brain wo/w [facility] Hospitaltart: 60-05-6676Ewnldvqma for malignant neoplasm of cervixNOMS HealthcareStart: 06-62-7549Hfrubqxox for malignant neoplasm of cervixPap Smear [facility] Immunizations Immunization DateImmunizationNotesCare ZqyjxphhAvbvlsvv40-76-5198vbxrbporh virus vaccine, unspecified formulationJacqueline Graziani [employer] CH[employer] OPENER Work Phone: [facility] InstituteJiaaefnfxc36-44-6128flwkezsau virus vaccine, split virus (incl. purified surface antigen)Yelitza Jones Other [place] [employer] Other 932037-52-6647zecgvhwmc virus vaccine, unspecified formulationPaulding County Hospital09-30-2020influenza, seasonal, injectable, preservative freeJacqueline Graziani [employer] CHANNEL OPENER Work Phone: [facility] InstituteQagnzawwjk36-37-7192sjhcdumsp virus vaccine, unspecified formulationJacqueline Graziani [employer] CHANNEL OPENER Work Phone: [facility] InstitutePogmnwukls96-90-4581olsadralqcas polysaccharide vaccine, 23 valentJacqueline Graziani [employer]SOLES CHANNEL OPENER Work Phone: [facility] InstituteBucuyfsdin67-88-6365lzpdwjlpx B vaccine, adult dosageJacqueline Graziani OUTSOLES CHANNEL OPENER Work Phone: [facility] InstituteQyyakscxqp67-31-6142srtdklxye B vaccine, adult dosageJacqueline Graziani OUTSOLES CHANNEL OPENER Work Phone: [facility] InstituteSkqplqldhi79-92-2531lzzosdogq B vaccine, adult dosageJacqueline Graziani OUTSOLES CHANNEL OPENER Work Phone: [facility] InstituteBdyjzwfbrx42-47-1417lwluxbh toxoid, reduced diphtheria toxoid, and acellular pertussis vaccine, adsorbedJacqueline Graziani [employer]SOLES CHANNEL OPENER Work Phone: [facility] Payers DatePayer CategoryPayerPolicy [id number]-hzj [id number] Health Insurance [id number] 1.2.840.381845.1.13.693.2.7.3.654247.88973-42-7969Yqcx [facility] [id number] 2.0.0.133664.[id number] [id number] 2.840.1.191868.3.57[id number] 2.840.1.390502.3.579.2.03539-05-7662Igxqyrs2068849 2.840.1.788385.3.579.2.30636-38-6513Irgbdtq5321145 2.0.1.382324.3.579.2.65314-04-9052Obaekhm4831194 2.840.1.037787.3.579.2.85695-54-7679Jqbpoyt3136433 2..1.711176.3.579.2.81332-59-0635Ynohozg0438352 2..1.810262.3.579.2.96018-56-7368Seaalri1642730 2..1.192149.3.579.2.84437-45-4743Dxhjkrh8228413 2..1.278849.3.579.2.00213-14-1317Igcydrj3670306 2..1.658265.3.579.2.68705-15-7096Inmkjah1476644 2..1.302774.3.579.2.89745-20-2218Tuxooha2146657 2..1.109441.3.579.2.17137-31-0054Punycmy1390096 2..1.943646.3.579.2.27505-56-4617Cpfxygw06414566 2..1.587080.3.579.2.789746-54-2927Hthgglr5228584 2..1.694398.3.579.2.454609-70-3082Twsozng0344625 2..1.440842.3.579.2.402413-89-4973Nubafbu8721049 2..1.236330.3.579.2.954321-29-4229Rhvtska3720330 2.16.840.1.946657.3.579.2.665445-91-9574Yhofeej Health [id number] [id number] 2.16.840.1.719138.3.579.2.593UnknownOhio Health [id number] ay477663-578x-9455-80ay-[id number] 2.16.840.1.874446.19 Mvkosbh68372600 2.16.840.1.841703.3.579.2.080Njeivqj33999529 2.16.840.1.473630.3.579.2.039Iutkjfn52762159 2.16.840.1.749131.3.579.2.531 Social History DateTypeDetailFacilityTobacco smoking status NHISUnknown if ever smokedAdena [facility] Work Phone: Start: 81-09-0071Jpm Assigned At [facility] Hospitaltart: 10-30-2023 End: 32-36-5103Cxq Assigned At [facility] [employer] Other Start: 06-09-2023 End: 98-51-2599Dnnabdq smoking status NHISNever smoked tobaccoNOMS Healthcare Start: 02-77-9368Wgojcxn use and exposureSmokeless tobacco non-userNOMS HealthcareStart: 10-30-2023 End: 51-66-7935Qunucsn intakeCurrent drinker of alcohol (finding)[facility] Start: 10-30-2023 End: 29-68-6319Zycxqiu intakeNOMS HealthcareStart: 63-89-1971Hshcwhp Comment Caffeine intake: more than 4 cups per day coffee, sodaNOMS HealthcareStart: 91-37-0157Diqatu identityIdentifies as female gender (finding)[facility] Start: 05-12-2024 End: 39-16-0312Kvwipojeb beverage intakeEx-drinker (finding)[facility] Start: 34-11-4586NivFsusqb (finding)[facility] Hospitaltart: 70-18-2669HrpJwebuqFZPTMUSC Health [facility] Clinical Notes 12-12-2022 to 09-05-2025 Note Date & JydiWqqySzulskwy09-38-8724 Telephone encounter Note* Telephone Encounter - Sammi Estrada NP - 09/05/2025 10:23 AM EDT OARRS reviewed. [facility] InstituteYscjfpkims58-07-9264 Miscellaneous Notes* Telephone Encounter - Sammi Estrada NP - 09/05/2025 10:23 AM EDT OARRS reviewed. documented in this encounterFreeman Heart InstituteAihvdghgdj41-28-1298 History of Present illness Narrative* Sammi Estrada NP - 07/15/2025 12:15 PM EDT Images from the original note were not included. Subjective Celi Madrid is a 39 y.o. female who presents for chronic migraines. The patient is here today for botox.She does experience wearing off effect of botox treatment. Botox is reducing migraines by 50% but still having 8 migraines a month or two per week. I started qulipta but caused her weight loss History of Present Illness The patient is a 39-year-old female who presents for repeat Botox injections for chronic migraines. She experiences migraines almost daily during the month preceding her Botox treatment. In the initial months post-treatment, she may have an occasional migraine, which she attributes to weather changes or stress. She has not yet taken Ubrelvy today. She has previously tried Ajovy and Emgality in conjunction with Botox. She reports no side effects from Botox, such as headaches or neck pain. She finds the Botox injections painful, but this could be due to the fact that she receives them during a flare-up. She admits to struggling with medication adherence and is unable to self-administer injections. She uses Ubrelvy, which she finds helpful, and receives 16 doses per month. Medications tried:steroids, ubrelvy, emgality, qulipta, ajovy, tylenol, ibuprofen, imitrex, topamax, neurontin, nurtec, robaxin. The patient states that her migraines are stable. She states that she has one today but is overdue for the botox. She averages 1-2 per month. The patient states botox helps significantly. At least 60%. MEDICATIONS Current: Ubrelvy, Botox. Past: Ajovy, Emgality. Review of Systems Constitutional: Positive for fatigue. [...] and numbness. Psychiatric/Behavioral: Positive for decreased concentration. Neurological Exam Mental Status Awake, alert and oriented to person, place and time. Oriented to person, place and time. Speech is normal. Language is fluent with no aphasia. Cranial Nerves CN II: Visual acuity is normal. Visual diaz full to confrontation. CN III, IV, : Extraocular movements intact bilaterally. Normal lids and orbits bilaterally. Pupils equal round and reactive to light bilaterally. CN V: Facial sensation is normal. CN VII: Full and symmetric facial movement. CN VIII: Hearing is normal. CN IX, X: Palate elevates symmetrically. Normal gag reflex. CN XI: Shoulder shrug strength is normal. CN XII: Tongue midline without atrophy or fasciculations. Gait Casual gait is normal including stance, stride, and arm swing. Procedures Procedure - Therapeutic injection, Botulinum Toxin, Chronic Migraine Indication Chronic Migraine Identification The patient was positively identified by name and date of . Consent The procedure was explained to the patient. This included indications; possible complications, including at least bleeding, infection, and ; and ill effects from not undergoing the procedure, including at least inadequate treatment and all possible complications therefrom. Informed consent forthe procedure was obtained and witnessed. Any further questions were answered during this visit. Site Prep The areas to be injected were sterilized with 70% isopropanol. Specialty pharmacy Lot # [id number] Dilution 200 units diluted into 4mL = 5 units per 0.1mL Procedure Procerus 5 units Lumber Stacker, L 5 units Lumber Stacker, R 5 units Frontalis, L 10 units (2 sites) Frontalis, R 10 units (2 sites) Temporalis, L 20 units (4 sites) Temporalis, R 20 units (4 sites) Occipitalis, L 15 units [...] without status migrainosus - G43.719 Procedure Codes 44661 Chemodenervation of muscles innervated by facial, trigeminal, cervical spinal and accessory nerves J0585 Botulinum toxin a per unit, Units: 200.00 Follow Up 2.5 months appointment; 3 months BTX Objective There were no vitals taken for this visit. Physical Exam Results Assessment & Plan 1. Chronic migraines. She experiences migraines almost daily during the month preceding her Botox treatment. In the initial months post-treatment, she may have an occasional migraine, which she attributes to weather changes or stress. She was advised to consider a combination treatment approach, including a daily pill like Qulipta or a monthly injection. However, she expressed difficulty in self-administering injections. She was informed that she could visit the office once a month for the administration of Aimovig,Ajovy, or Emgality by a medical superintendent. She agreed to this plan. A prescription for Aimovig was provided, and she was instructed to bring it to the office for administration. Botox does reduce migr aines from daily to twice a week but this is still too frequent and needs combination treatment. 2. ADHD treated/managed with adderall. This does also help her fatigue This was discussed with patient all questions answered. Total time 20 minutes spent reviewing records, performing medically appropriate exam, counseling , education, ordering medication, tests, and/or procedures, documenting health information into the health record, communicating results to the patient, and coordinating care. This clinical note was created utilizing NodePing documentation system. All information has beenthoroughly reviewed, corrected as necessary, and authenticated by the provider to ensure accuracy and completeness. On occasion, NodePing documentation system erroneously drops words or replaces aspoken word with a similar sounding word. Please notify with any questions or concerns regarding this clinical note. documented in this [facility]07-25-2025 Telephone encounter Note* Telephone Encounter - Sammi Estrada NP - 06/03/2025 8:25 AM EDT Resent Adderall as patient leaving for [employer]. [facility] InstitutePvkkdujvoj37-02-4381 Miscellaneous Notes* Telephone Encounter - Sammi Estrada NP - 06/03/2025 8:25 AM EDT Resent Adderall as patient leaving for [employer]. documented in this [facility]07-24-2025 Telephone encounter Note* Telephone Encounter - Sammi Estrada NP - 06/02/2025 12:18 PM EDT OARRS reviewed. [facility] InstituteTydhechjzm59-94-4187 Miscellaneous Notes* Telephone Encounter - Sammi Estrada NP - 06/02/2025 12:18 PM EDT OARRS reviewed. documented in this [facility]06-29-2025 Telephone encounter Note* Telephone Encounter - Sammi Estrada NP - 05/08/2025 12:27 PM EDT OARRS reviewed. [facility] InstituteHcrwxatqns47-09-3537 Miscellaneous Notes* Telephone Encounter - Sammi Estrada NP - 05/08/2025 12:27 PM EDT OARRS reviewed. documented in this [facility]05-29-2025 Telephone encounter Note* Telephone Encounter - Sammi Estrada NP - 04/07/2025 9:16 AM EDT OARRS reviewed. [facility] InstitutePorokazcsh29-72-4479 Miscellaneous Notes* Telephone Encounter - Sammi Estrada NP - 04/07/2025 9:16 AM EDT OARRS reviewed. documented in this [facility]05-15-2025 History of Present illness Narrative* Sammi Estrada NP - 03/24/2025 3:45 PM EDT Images from the original note were not included. CHIEF COMPLAINT REASON FOR VISIT : botox injections HPI: Celi Madrid is a 39 y.o. female who presents for repeat botox injections for chronic migraines. Shediscontinued Qulipta as she reports medication caused her to lose weight? I discussed with her medication Adderall really is biggest appetite suppressant culprit or topamax as we use in weight loss. Vyvanse worked so much better for her. She continues with severe fatigue. Botox reduces migraines by 50%. Prior to botox she had 16 headache/migraine days a month. Duration 12 hours. Pain severe. Associated symptoms photophobia. Medications tried:steroids, ubrelvy, emgality, qulipta, ajovy, tylenol, ibuprofen, imitrex, topamax, neurontin, nurtec, robaxin. She does experience wearing off effect of botox treatment. Botox is reducing migraines by 50% but still having 8 migraines a month or tw per week. I started qulipta but caused her weight loss? CURRENT MEDICATIONS: ALLERGIES/DISCONTINUE MEDICATIONS Current Outpatient Medications Medication Instructions amphetamine-dextroamphetamine (Adderall) 30 MG tablet 30 mg, Oral, Daily onabotulinumtoxinA (Botox 200u vial IJ Soln) 200 units injection DIRECTED 155 UNITS INJECTION EVERY 90 DAYS sertraline (ZOLOFT) 50 mg, Oral, Daily topiramate (TOPAMAX) 25 mg, Oral, 2 times daily Ubrogepant (Ubrelvy) 100 MG tablet 1 tablet, Oral, As needed Allergies Allergen Reactions Metronidazole Other Reaction(s): Hives Nsaids Unknown Other Reaction(s): kidney issues Sumatriptan Other Reaction(s): Hives Amoxicillin Rash There are no discontinued medications. 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 Post-nasal drainage 2013 Proteinuria since 2011 Varicella zoster Past Surgical History: Procedure Laterality Date SECTION, LOW TRANSVERSE 2013 SECTION, LOW TRANSVERSE 12/16/2016 & tube removal HYSTERECTOMY 10/2017 [facility] Procedure:Clomid 50 mg i daily;Disease:Infertility Social History Tobacco Use Smoking status: Never Smokeless tobacco: Never Substance Use Topics Alcohol use: Not Currently Alcohol/week: 2.0 standard drinks of alcohol Types: 2 Standard drinks or equivalent per week Comment: Caffeine intake: more than 4 cups per day coffee, soda Drug use: Never Family History Problem Relation Name Age of [...] Diabetes Paternal Grandfather Lung cancer Paternal Grandfather Depression: Not at risk (02/11/2021) Received from [facility] PHQ-2 PHQ-2 score: 1 REVIEW OF SYMPTOMS: Review of Systems Constitutional: Positive for fatigue. [...] and numbness. Psychiatric/Behavioral: Positive for decreased concentration. OBJECTIVE: 12/09/2024 3:30 PM 09/16/2024 10:43 AM 07/15/2024 1:10 PM Vitals BMI 24.98 kg/m2 25.33 kg/m2 24.8 kg/m2 BSA (m2) 1.69 m2 1.7 m2 1.68 m2 Systolic 110 120 Diastolic 72 80 Height (in) 5' 3 5' 3 5' 3 Weight (lb) 141 143 140 Visit Report Report EXAM: Neurological Exam Mental Status Awake, alert and oriented to person, place and time. Oriented to person, place and time. Recent andremote memory are intact. Speech is normal. Language is fluent with no aphasia. Attention and concentration are normal. Cranial Nerves CN II: Visual acuity is normal. Visual diaz full to confrontation. CN III, IV, : Extraocular movements intact bilaterally. Normal lids and orbits bilaterally. Pupils equal round and reactive to light bilaterally. CN V: Facial sensation is normal. CN VII: Full and symmetric facial movement. CN VIII: Hearing is normal. CN XII: Tongue midline without atrophy or fasciculations. Motor Normal muscle bulk throughout. Normal muscle tone. Right Left Wrist flexion 5 5 Wrist extension 5 5 Right Left Deltoid 5 5 Biceps 5 5 Triceps 5 5 Wrist flexor 5 5 Wrist extensor 5 5 Glutei 5 5 Iliopsoas 5 5 Quadriceps 5 5 Gastrocnemius 5 5 Anterior tibialis 5 5 Posterior tibialis 5 5 Sensory Light touch is normal in upper and lower extremities. Pinprick is normal in upper and lower extremities. Vibration is normal in upper and lower extremities. Reflexes Right Left Brachioradialis 2+ 2+ Biceps 2+ 2+ Patellar 3+ 3+ Achilles 3+ 3+ Right Plantar: downgoing Left Plantar: downgoing Right pathological reflexes: Sunday's absent. Ankle clonus absent. Left pathological reflexes: Sunday's absent. Ankle clonus absent. Coordination Twqkhl-ba-jbfj, rapid alternating movements and toum-jz-qonz normal bilaterally without dysmetria. Gait Normal casual, toe, heel and tandem gait. Romberg is absent. PROCEDURE: Procedure - Therapeutic injection, Botulinum Toxin, Chronic Migraine Indication Chronic Migraine Identification The patient was positively identified by name and date of . Consent The procedure was explained to the patient. This included indications; possible complications, including at least bleeding, infection, and ; and ill effects from not undergoing the procedure, including at least inadequate treatment and all possible complications therefrom. Informed consent forthe procedure was obtained and witnessed. Any further questions were answered during this visit. Site Prep The areas to be injected were sterilized with 70% isopropanol. Specialty pharmacy Lot # [id number] Dilution 200 units diluted into 4mL = 5 units per 0.1mL Procedure Procerus 5 units Lumber Stacker, L 5 units Lumber Stacker, R 5 units Frontalis, L 10 units [...] without status migrainosus - G43.719 Procedure Codes 90672 Chemodenervation of muscles innervated by facial, trigeminal, cervical spinal and accessory nerves: Modifiers: 50 J0585 Botulinum toxin a per unit, Units: 200.00 Follow Up 2.5 months appointment; 3 months BTX ASSESSMENT AND PLAN: Diagnoses and all orders for this visit: Intractable chronic migraine without aura and without status migrainosus (CMS/HCC) Cognitive decline - TSH; Future - T3; Future - T4, free; Future - SSA ANTIBODY ([facility]); Future - SSB ANTIBODY ([facility]); Future Other specified hypothyroidism - TSH; Future - T3; Future - T4, free; Future - SSA ANTIBODY ([facility]); Future - SSB ANTIBODY ([facility]); Future Autoimmune disease (CMS/HCC) - SSA ANTIBODY ([facility]); Future - SSB ANTIBODY ([facility]); Future 39 year old female with continued severe fatigue. JASVIR last normal. CRP, ESR, and CBC normal. I willorder thyroid levels and SSB/SSA to rule out sjogrens. She has had positive IgG EBV which can affect immune system. Prior LP with negative MBP and bands. 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 She is here for repeat botox injections for chronic migraines. Botox reduces migraines by 50%.She has tried CGRP blockers, steroids, muscle relaxers, anticonvulsants, OTCs, NSAIDs, triptans. documented in this encounterFreeman Heart [id number] History of Present illness Narrative* Sammi Estrada, [employer] - 12/09/2024 3:15 PM EST Images from the original note were not included. CHIEF COMPLAINT REASON FOR VISIT : migraine botox HPI: Celi Madrid is a 39 y.o. female who presents for repeat migraine botox. Prior to botox she had 16 headache/migraine days a month. Duration 12 hours. Pain severe. Associated symptoms photophobia. Medications tried:steroids, ubrelvy, emgality, qulipta, ajovy, tylenol, ibuprofen, imitrex, topamax, neurontin, nurtec, robaxin. She does experience wearing off effect of botox treatment. Botox is reducing migraines by 50% but still having 8 migraines a month or tw per week. She reports severe fatigue, debilitating and worsening again. She showed me a picture of her face and shows a significant rash that looks butterfly. CURRENT MEDICATIONS: ALLERGIES/DISCONTINUE MEDICATIONS Current Outpatient Medications Medication Instructions amphetamine-dextroamphetamine (Adderall) 30 MG tablet 30 mg, Oral, Daily Atogepant (Qulipta) 60 MG tablet 1 tablet, Oral, Daily onabotulinumtoxinA (Botox 200u vial IJ Soln) 200 units injection DIRECTED 155 UNITS INJECTION EVERY 90 DAYS sertraline (ZOLOFT) 50 mg, Oral, Daily topiramate (TOPAMAX) 25 mg, Oral, 2 times daily Ubrogepant (Ubrelvy) 100 MG tablet 1 tablet, Oral, As needed Allergies Allergen Reactions Metronidazole Other Reaction(s): Hives Nsaids Unknown Other Reaction(s): kidney issues Sumatriptan Other Reaction(s): Hives Amoxicillin Rash There are no discontinued medications. PAST MEDICAL HISTORY: SURGICAL/SOCIAL/FAMILY HISTORY DEPRESSION SCREEN: Past Medical History: Diagnosis Date Acute tonsillitis [...] TRANSVERSE 12/16/2016 & tube removal HYSTERECTOMY 10/2017 [facility] Procedure:Clomid 50 mg i daily;Disease:Infertility Social History Tobacco Use Smoking status: Never Smokeless tobacco: Never Substance Use Topics Alcohol use: Not Currently Alcohol/week: 2.0 standard drinks of alcohol Types: 2 Standard drinks or equivalent per week Comment: Caffeine intake: more than 4 cups per day coffee, soda Drug use: Never Family History Problem Relation Name Age of [...] Diabetes Paternal Grandfather Lung cancer Paternal Grandfather Depression: Not at risk (02/11/2021) [facility] PHQ-2 PHQ-2 score: 1 REVIEW OF SYMPTOMS: Review of Systems Constitutional: Positive for fatigue. [...] and numbness. Psychiatric/Behavioral: Positive for decreased concentration. OBJECTIVE: 12/09/2024 3:30 PM 09/16/2024 10:43 AM 07/15/2024 1:10 PM Vitals BMI 24.98 kg/m2 25.33 kg/m2 24.8 kg/m2 BSA (m2) 1.69 m2 1.7 m2 1.68 m2 Systolic 110 120 Diastolic 72 80 Height (in) 5' 3 5' 3 5' 3 Weight (lb) 141 143 140 Visit Report Report EXAM: Neurological Exam Mental Status Awake, alert and oriented to person, place and time. Oriented to person, place and time. Recent andremote memory are intact. Speech is normal. Language is fluent with no aphasia. Attention and concentration are normal. Cranial Nerves CN II: Visual acuity is normal. Visual diaz full to confrontation. CN III, IV, : Extraocular movements intact bilaterally. Normal lids and orbits bilaterally. Pupils equal round and reactive to light bilaterally. CN V: Facial sensation is normal. CN VII: Full and symmetric facial movement. CN VIII: Hearing is normal. CN XII: Tongue midline without atrophy or fasciculations. Motor Normal muscle bulk throughout. Normal muscle tone. Right Left Wrist flexion 5 5 Wrist extension 5 5 Right Left Deltoid 5 5 Biceps 5 5 Triceps 5 5 Wrist flexor 5 5 Wrist extensor 5 5 Glutei 5 5 Iliopsoas 5 5 Quadriceps 5 5 Gastrocnemius 5 5 Anterior tibialis 5 5 Posterior tibialis 5 5 Sensory Light touch is normal in upper and lower extremities. Pinprick is normal in upper and lower extremities. Vibration is normal in upper and lower extremities. Reflexes Right Left Brachioradialis 2+ 2+ Biceps 2+ 2+ Patellar 3+ 3+ Achilles 3+ 3+ Right Plantar: downgoing Left Plantar: downgoing Right pathological reflexes: Sunday's absent. Ankle clonus absent. Left pathological reflexes: Sunday's absent. Ankle clonus absent. Coordination Vgvkcq-ji-[id number], rapid alternating movements and qqsn-sh-ktcs normal bilaterally without dysmetria. Gait Normal casual, toe, heel and tandem gait. Romberg is absent. PROCEDURE: Procedure - Therapeutic injection, Botulinum Toxin, Chronic Migraine Indication Chronic Migraine Identification The patient was positively identified by name and date of . Consent The procedure was explained to the patient. This included indications; possible complications, including at least bleeding, infection, and ; and ill effects from not undergoing the procedure, including at least inadequate treatment and all possible complications therefrom. Informed consent forthe procedure was obtained and witnessed. Any further questions were answered during this visit. Site Prep The areas to be injected were sterilized with 70% isopropanol. Specialty pharmacy Lot # [id number] Dilution 200 units diluted into 4mL = 5 units per 0.1mL Procedure Dsagvlta1eohes Lumber Stacker, Z4dnaaa Lumber Stacker, V4khwpp Frontalis, E16huobx(2 sites) Frontalis, F72xowne(2 sites) Temporalis, L 20 units (4 sites) Temporalis, R.20units(4 sites) Occipitalis, O98ljqna(3 sites) Occipitalis, N01sxdkr(3 sites) Paraspinalis cervicis, D35dremu(2 sites) Paraspinalis cervicis, F79gabcc(2 sites) Trapezius, Q23vjplp(3 sites) Trapezius, S80rnplx(3 sites) Hvkiv20dwitj(9 sites, see below) TOTAL UNITS [id number] The remaining 45 units were injected into [...] without status migrainosus - G43.719 Procedure Codes 50853 Chemodenervation of neck muscles, bilateral: Modifiers: 50 96425 Destroy Nerve, Face Muscle, Modifiers: 50 , 51 J0585 Botulinum toxin a per unit, Units: 200.00 Follow Up 2.5 months appointment; 3 months BTX ASSESSMENT AND PLAN: Diagnoses and all orders for this visit: Intractable chronic migraine without aura and without status migrainosus (CMS/HCC) - Atogepant (Qulipta) 60 MG tablet; Take 1 tablet by mouth Daily Autoimmune disease (CMS/HCC) - JASVIR; Future - C-reactive protein; Future - Sedimentation rate, automated; Future - CBC and differential; Future - Rheumatoid factor; Future - SSA ANTIBODY ([facility]); Future - SSB ANTIBODY ([facility]); Future 39 year old female with chronic migraines. Botox does reduce migraines from 16 severe migraines a month to 8. She needs combination treatment. I will restart Qulipta for chronic migraine preventativetreatment. If we do not treat migraines appropriately they will worsen. She is having worsening debilitating fatigue again. She has history of EBV exposure which could contribute causing autoimmune fibromyalgia. LP was negative prior for bands and MBP. There was question if she had MS vs CIS. She does have a picture of a rash similiarly seen in lupus as a butterfly rash. I will order JASVIR, SSA, SSB, RF, CBC, CRP and ESR. This was discussed with patient all questions answered. Total time 20 minutes spent reviewing records, performing medically appropriate exam, counseling , education, ordering medication, tests, and/or procedures, documenting health information into the health record, communicating results to the patient, and coordinating care. documented in this encounterFreeman Heart [id number] History of Present illness Narrative* Efrain Jean Baptiste MD - 09/16/2024 10:20 AM EST Images from the original note were not included. CHIEF COMPLAINT REASON FOR VISIT : Autoimmune, ADD HPI: Celi Madrid is a 38 y.o. female who presents for a follow up. Adderall was filled yesterday, She states she misses me on the vyvanse. The adderall works but some days work better than others. She states she is still taking the naltrexone but would like her labs re drawn to see if she can get off ofit. She states she has a lot of pain in the back of her head. States it is a lot of pressure. She states she will be due for her yearly MRI,. To be done at [facility] [place]. She states she is not sure if the painis from the chiari malformation. She states her headaches have been bad the past few weeks. Botox does help but she thinks due to weather changes. She states she has a lot of stiffness. She states she feels like she has lupus because she has been getting the rash on her face. Denies any other concerns. CURRENT MEDICATIONS: ALLERGIES/DISCONTINUE MEDICATIONS Current Outpatient Medications Medication Instructions amphetamine-dextroamphetamine (Adderall) 30 MG tablet 30 mg, Oral, Daily onabotulinumtoxinA (Botox 200u vial IJ Soln) 200 units injection DIRECTED 155 UNITS INJECTION EVERY 90 DAYS sertraline (ZOLOFT) 50 mg, Oral, Daily Ubrogepant (Ubrelvy) 100 MG tablet 1 tablet, Oral, As needed Allergies Allergen Reactions Metronidazole Other Reaction(s): Hives Nsaids Unknown Other Reaction(s): kidney issues Sumatriptan Other Reaction(s): Hives Amoxicillin Rash There are no discontinued medications. 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 Post-nasal drainage 2012 Proteinuria since 2011 Varicella zoster Past Surgical History: Procedure Laterality Date SECTION, LOW TRANSVERSE 2013 SECTION, LOW TRANSVERSE 12/16/2016 & tube removal HYSTERECTOMY 10/2017 [facility] Procedure:Clomid 50 mg i daily;Disease:Infertility Social History Tobacco Use Smoking status: Never Smokeless tobacco: Never Substance Use Topics Alcohol use: Not Currently Alcohol/week: 2.0 standard drinks of alcohol Types: 2 Standard drinks or equivalent per week Comment: Caffeine intake: more than 4 cups per day coffee, soda Drug use: Never Family History Problem Relation Name Age of [...] Diabetes Paternal Grandfather Lung cancer Paternal Grandfather Depression: Not at risk (02/11/2021) [facility] PHQ-2 PHQ-2 score: 1 REVIEW OF SYMPTOMS: Review of Systems OBJECTIVE: 09/16/2024 10:43 AM 07/15/2024 1:10 PM 05/03/2024 9:21 AM Vitals BMI 25.33 kg/m2 24.8 kg/m2 24.45 kg/m2 BSA (m2) 1.7 m2 1.68 m2 1.67 m2 Systolic 120 Diastolic 80 Height (in) 5' 3 5' 3 5' 3 Weight (lb) 143 140 138 Visit Report Report Report EXAM: Neurological Exam GENERAL EXAMINATION Appearance: in no acute distress, well developed, well nourished. Head: normocephalic, atraumatic. Eyes: pupils equal, round, reactive to light and accommodation. Ears: normal. Mouth: mucosa moist. Throat: clear. Neck: neck supple, full range of motion, no cervical lymphadenopathy. Skin: no suspicious lesions, warm and dry. Heart: no murmurs, regular rate and rhythm, S1, S2 normal. Lungs: clear to auscultation bilaterally. Abdomen: normal, bowel sounds present, soft, nontender, nondistended. Extremities: no clubbing, cyanosis, or edema. NEUROLOGICAL EXAMINATION Mental Status: The patient is alert and oriented to person, place, and time. Except as noted, thought content, form, and comprehension was normal. Phonation, articulation, resonance, and prosody are normal. Cranial Nerves: Pupils were 4.0 millimeters, equal, round, and reactive to light and accommodation,both directly and consensually. Visual diaz were full by confrontation. There was no ptosis; extra-ocular movements were full; and there was no nystagmus. Funduscopic exam is normal. Masseters are of normal strength. Facial movement is normal. Hearing is grossly intact. There is no dysarthria. The gag reflex is equal bilaterally. Sternocleidomastoids and trapezii are of normal strength. The tongue protrudes in the midline. Motor: Muscle testing was performed in all four extremities, including at least employment director, finger abductors, biceps, triceps, deltoid, toe flexors and extensors, tibialis anterior, triceps surae, quadriceps femoris, biceps femoris, and iliopsoases. Tone is normal. Muscle bulk is normal. Fasciculations are not seen . Pronator drift was not evident. Sensory: Sensation to touch, temperature, and vibration was normal in the arms, legs and face. Romberg is negative. Reflexes: Biceps, triceps, brachioradialis are 2/4 bilaterally. Patellar and Achilles reflexes are 2/4 bilaterally. Plantar responses were flexor bilaterally. Coordination: Dysmetria and dysdiadochokinesia are absent. Tremor is absent; dystonia is absent; chorea is absent. Gait And Station: Station and gait are normal. Apraxia and spasticity are not evident. Arm swing isnormal. Toe, heel, and tandem walking are performed without difficulty. Musculoskeletal: Trigger-point tenderness was absent. There is no spasm of the trapezii or paraspinals. PROCEDURE: NONE ASSESSMENT AND PLAN: Diagnoses and all orders for this visit: Chronic migraine without aura, not intractable, without status migrainosus (CMS/HCC) Chiari malformation type I (CMS/HCC) I will update yearly MR brain w and wo contrast routine; [facility] [place] Start topiramate (Topamax) 25 MG tablet; Take one tablet (25 mg) by mouth daily for 1 week then increase to two tablets (25 mg) by mouth daily thereafter. ADD (attention deficit disorder) without hyperactivity Continue with Adderall 30 mg daily. Demyelinating disease of central nervous system (HCC) (CMS/HCC) I will update blood work as she would like to stop LDN if her levels have improved. Julius-Dela Cruz virus VCA, IgM; Future Julius-Dela Cruz virus VCA, IgG; Future JASVIR; Future Vitamin D 25 hydroxy Total; Future Follow up 3 months. documented in this [facility]09-17-2024 Telephone encounter Note* Telephone Encounter - Sammi Estrada NP - 07/27/2024 3:27 PM EDT Sent 30 mg IR [facility] [id number] Miscellaneous Notes* Telephone Encounter - Sammi Estrada NP - 07/27/2024 3:27 PM EDT Sent 30 mg IR * Telephone Encounter - Sammi Estrada NP - 07/27/2024 3:05 PM EDT Patient calls and her medication Adderall is on delay the 30 mg XR. If she does not take this medication she is significantly exhausted, fatigue is severely debilitating. documented in this [facility]09-17-2024 Telephone encounter Note* Telephone Encounter - Sammi Estrada NP - 07/27/2024 3:05 PM EDT Patient calls and her medication Adderall is on delay the 30 mg XR. If she does not take this medication she is significantly exhausted, fatigue is severely debilitating. [facility] [id number] Telephone encounter Note* Telephone Encounter - Sammi Estrada NP - 07/26/2024 8:26 AM EDT [facility] reviewed. [facility] [id number] Miscellaneous Notes* Telephone Encounter - Sammi Estrada NP - 07/26/2024 8:26 AM EDT [facility] reviewed. documented in this encounterFreeman Heart [id number] History of Present illness Narrative* Sammi Estrada NP - 07/15/2024 1:00 PM EDT Images from the original note were not included. CHIEF COMPLAINT REASON FOR VISIT : Botox HPI: Celi Madrid is a 38 y.o. female who presents for chronic migraine botox. She has significant wearing off the last two weeks. Ubrelvy does work but she has them almost daily. She can not take NSAIDs due to her kidney's. She is not doing well with the XR adderall. Prior to botox she had 16 headache/migraine days a month. Duration 12 hours. Pain severe. Associated symptoms photophobia. Medications tried:steroids, ubrelvy, emgality, qulipta, ajovy, tylenol, ibuprofen, imitrex, topamax, neurontin, nurtec, robaxin. She needs to tony back on her low dose naltrexone. She has not been taking it. Medication does help her pain and inflammation. Pain and migraines make it difficult for her to focus. Botox reduces migraines by 50% or greater. She does experience wearing off effect of botox treatment. CURRENT MEDICATIONS: ALLERGIES/DISCONTINUE MEDICATIONS Current Outpatient Medications Medication Instructions amphetamine-dextroamphetamine XR (Adderall XR) 30 MG 24 hr capsule 30 mg, Oral, Every morning, Do not crush or chew. Naltrexone HCl powder 1 mg, Oral, Daily onabotulinumtoxinA (Botox 200u vial IJ Soln) 200 units injection DIRECTED 155 UNITS INJECTION EVERY 90 DAYS sertraline (ZOLOFT) 50 mg, Oral, Daily Ubrelvy 100 MG tablet Allergies Allergen Reactions Nsaids Unknown Other Reaction(s): kidney issues Amoxicillin Rash There are no discontinued medications. 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 Post-nasal drainage 2012 Proteinuria since 2011 Varicella zoster Past Surgical History: Procedure Laterality Date SECTION, LOW TRANSVERSE 2012 SECTION, LOW TRANSVERSE 12/16/2016 & tube removal HYSTERECTOMY 10/2017 [facility] Procedure:Clomid 50 mg i daily;Disease:Infertility Social History Tobacco Use Smoking status: Never Smokeless tobacco: Never Substance Use Topics Alcohol use: Not Currently Alcohol/week: 2.0 standard drinks of alcohol Types: 2 Standard drinks or equivalent per week Comment: Caffeine intake: more than 4 cups per day coffee, soda Drug use: Never Family History Problem Relation Name Age of [...] Diabetes Paternal Grandfather Lung cancer Paternal Grandfather Depression: Not at risk (02/11/2021) [facility] PHQ-2 PHQ-2 score: 1 REVIEW OF SYMPTOMS: Review of Systems Constitutional: Positive for fatigue. Negative for chills and fever. HENT: Negative for tinnitus. Eyes: Negative for photophobia. Respiratory: Negative for shortness of breath. Cardiovascular: Negative for chest pain. Gastrointestinal: Negative for nausea and vomiting. Genitourinary: Negative for frequency. Musculoskeletal: Positive for arthralgias, neck pain and neck stiffness. Negative for back pain andgait problem. Neurological: Positive for headaches. Negative for dizziness, tremors, weakness, light-headedness and numbness. Psychiatric/Behavioral: Positive for decreased concentration. The patient is nervous/anxious. OBJECTIVE: 07/15/2024 1:10 PM 05/03/2024 9:21 AM 04/01/2024 1:14 PM Vitals BMI 24.8 kg/m2 24.45 kg/m2 24.45 kg/m2 BSA (m2) 1.68 m2 1.67 m2 1.67 m2 Systolic 120 110 Diastolic 80 80 Height (in) 5' 3 5' 3 5' 3 Weight (lb) 140 138 138 Visit Report Report EXAM: Neurological Exam Mental Status Awake, alert and oriented to person, place and time. Oriented to person, place and time. Recent andremote memory are intact. Speech is normal. Language is fluent with no aphasia. Attention and concentration are normal. Cranial Nerves CN II: Visual acuity is normal. Visual diaz full to confrontation. CN III, IV, : Extraocular movements intact bilaterally. Normal lids and orbits bilaterally. Pupils equal round and reactive to light bilaterally. CN V: Facial sensation is normal. CN VII: Full and symmetric facial movement. CN VIII: Hearing is normal. CN XII: Tongue midline without atrophy or fasciculations. Motor Normal muscle bulk throughout. Increased muscle tone. Increased cervical neck paraspinal muscles. Right Left Wrist flexion 5 5 Wrist extension 5 5 Right Left Deltoid 5 5 Biceps 5 5 Triceps 5 5 Wrist flexor 5 5 Wrist extensor 5 5 Glutei 5 5 Iliopsoas 5 5 Quadriceps 5 5 Gastrocnemius 5 5 Anterior tibialis 5 5 Posterior tibialis 5 5 Sensory Light touch is normal in upper and lower extremities. Pinprick is normal in upper and lower extremities. Vibration is normal in upper and lower extremities. Reflexes Right Left Brachioradialis 2+ 2+ Biceps 2+ 2+ Patellar 3+ 3+ Achilles 3+ 3+ Right Plantar: downgoing Left Plantar: downgoing Right pathological reflexes: Sunday's absent. Ankle clonus absent. Left pathological reflexes: Sunday's absent. Ankle clonus absent. Coordination Bqmocr-qt-myrb, rapid alternating movements and jxjq-ao-oequ normal bilaterally without dysmetria. Gait Normal casual, toe, heel and tandem gait. Romberg is absent. PROCEDURE: Procedure - Therapeutic injection, Botulinum Toxin, Chronic Migraine Indication Chronic Migraine Identification The patient was positively identified by name and date of . Consent The procedure was explained to the patient. This included indications; possible complications, including at least bleeding, infection, and ; and ill effects from not undergoing the procedure, including at least inadequate treatment and all possible complications therefrom. Informed consent forthe procedure was obtained and witnessed. Any further questions were answered during this visit. Site Prep The areas to be injected were sterilized with 70% isopropanol. Specialty pharmacy Lot # [id number] Dilution 200 units diluted into 4mL = 5 units per 0.1mL Procedure Procerus 5 units Lumber Stacker, L 5 units Lumber Stacker, R 5 units Frontalis, L 10 units [...] without status migrainosus - G43.719 Procedure Codes 14741 Chemodenervation of neck muscles, bilateral: Modifiers: 50 37720 Destroy Nerve, Face Muscle, Modifiers: 50 , 51 J0585 Botulinum toxin a per unit, Units: 200.00 Follow Up 2.5 months appointment; 3 months BTX ASSESSMENT AND PLAN: Diagnoses and all orders for this visit: Intractable chronic migraine without aura and without status migrainosus (CMS/HCC) - Ambulatory Referral for Botox; Future Autoimmune disease ([facility]) - Naltrexone HCl powder; Take 1 mg by mouth Daily 38 year old female here for repeat botox injections for chronic migraines. Prior to botox treatmentshe has 16 or greater migraine days per month. Duration were 12 hours with severe pain and photophobia. She does experience wearing off of her botox treatment two weeks prior. Ubrelvy does relieve her migraines. She has tried multiple gepant medications, seizure drugs, antidpressants. If we do not treat migraines appropriately they can progress/worsen. 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 I will continue botox treatment for chronic migraines. She needs to restart LDN for autoimmune symptoms, inflammatory pain. This was discussed with patient, all questions answered. Total time 20 minutes spent reviewing records, performing medically appropriate exam, counseling , education, ordering medication, tests, and/or procedures, documenting health information into the health record, communicating results to the patient, and coordinating care. documented in this encounterFreeman Heart [id number] History of Present illness Narrative* Sammi Estrada NP - 12/25/2023 1:30 PM EST Subjective Celi Madrid is a 38 y.o. female. HPI Patient presents for chronic migraine botox. She had significant reduction last time and her TMJ pain too was reduced. She had severe wearing off with TMJ pain. After botox she only has 1 migraine after and then the last two weeks increasing symptoms. Prior to botox she had daily migraines. Ubrelvyrelieves migraines. She is not tolerating XR Adderall. She is nearly falling asleep in afternoon at work. 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 She has to complete [...] po daily X3 days , then 1 pillpo daily X3 days then stop 9 days 18 pills, Disp: 18 tablet, Rfl: 1 lisdexamfetamine (Vyvanse) 40 MG capsule, Take 1 capsule (40 mg) by mouth in the morning., Disp: 30capsule, Rfl: 0 naltrexone (Depade) 50 MG tablet, Take 3 mg by mouth in the morning., Disp: , Rfl: sertraline (Zoloft) 50 MG tablet, TAKE 1 AND 1/2 TABLETS BY MOUTH EVERY DAY, Disp: 135 tablet, Rfl:2 Past Medical History: Diagnosis Date Acute tonsillitis Depression ([facility]) Electrolyte imbalance 2004 H/O section repeat c/s Infertility, female Kidney disease Migraine ([facility]) 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 Post-nasal drainage 2012 Proteinuria since 2011 Varicella zoster Past Surgical History: Procedure Laterality Date SECTION, LOW TRANSVERSE 2012 SECTION, LOW TRANSVERSE 12/16/2016 & tube removal HYSTERECTOMY 10/2017 [place] [facility]ICATION MANAGEMENT Procedure:Clomid 50 mg i daily;Disease:Infertility [...] and all possible complications therefrom. Informed consent forthe procedure was obtained and witnessed. Any further questions were answered during this visit. Site Prep The areas to be injected were sterilized with 70% isopropanol. Specialty pharmacy Lot # [id number] Dilution 200 units diluted into 4mL = 5 units per 0.1mL Procedure Procerus 5 units Lumber Stacker, L 5 units Lumber Stacker, R 5 units Frontalis, L 10 units [...] without status migrainosus - G43.719 Procedure Codes 92424 Chemodenervation Of Muscle Neck, Modifiers: 50 15227 Destroy Nerve, Face Muscle, Modifiers: 50 , 51 J0585 Botulinum toxin a per unit, Units: 200.00 A4209 SYRINGE W/NEEDLE STERILE 5 CC/GT EA A4206 1 CC sterile syringe&needle, Units: 4.00 A4216 Sterile water/saline, 10 ml Follow Up 2.5 months appointment; 3 months BTX documented in this [facility]01-05-2024 Evaluation note* Encounter Date Diagnosis Assessment Notes Treatment Notes Treatment Clinical Notes Nov, Chest congestion (ICD-10 - R09.8 9) Nov,Influenza B (ICD-10 - J10.1)Influenza: adult home care material was printed Drink plenty fluids, get plenty of rest. Take Tylenol or Motrin for aches pains or fevers. Follow-up with your family physician if no improvement in 2 to 3 days [facility] Other 12-26-2023 Evaluation note* Encounter Date Diagnosis Assessment Notes Treatment Notes Treatment Clinical Notes Oct, Bronchitis (ICD-10 - J40) Take antibiotic as directed. If develop wheezing, chest tightness, itching, bad cough, blue skin color, seizures, swelling of face, lips, tongue, or throat report to ED. [facility] Other 11-30-2023 Evaluation note* Encounter Date Diagnosis Assessment Notes Treatment Notes Treatment Clinical Notes Sep, Suspected COVID-19 virus infecti on (ICD-10 - Z20.822) Sep,OVID (ICD-10 - U07.1)You were seen ehre today for your cough, congestion, body aches, sore throat, right ear pain, fevers after close contact with covid positive person. You tested postiive for covid. Your right ear is in fected. You are being prescribed a Z-alexy for your right ear infection due to your penicillin allergy. You will need to remain off work for the remaining 3 days due to covid positive test. Rest, drinkplenty of fluids. Tyelnol and motrin as needed for fevers, body aches, discomfort. Follow up with your primary care doctor as needed. Go to the ER if you develop chest pain, shortness of breath, difficulty breathing, inability to eat or drink. Sep,cute right otitis media (ICD-10 - H66.91) [facility] Other 09-19-2023 Evaluation note* Encounter Date Diagnosis Assessment Notes Treatment Notes Treatment Clinical Notes Jul, Wellness examination (ICD-10 - Z 00.00) Not a wellness exam, but requests wellness labs done for this year. Jul,isorder of right eustachian tube (ICD-10 - H69.91)Advised finishing steroids. Trial of lower dose sudafed with flonase, which she has not started. NoOM seen. Pt understands [facility] Other 09-06-2023 Evaluation note* Encounter Date Diagnosis Assessment Notes Treatment Notes Treatment Clinical Notes Jul, Pharyngitis, unspecified etiolog y (ICD-10 - J02.9) [facility] Other 05-01-2023 Evaluation note* Encounter Date Diagnosis Assessment Notes Treatment Notes Treatment Clinical Notes March, Acute non-recurrent maxillary si nusitis (ICD-10 - J01.00) PCN allergy Sinus infections can be triggered by a secondary infection from a viral URI or even seasonal allergies. Take medications as directed. Use saline nasal spray prior to presciption nasal spray. Take medications as directed, and complete all doses of medication even if you start to feel better. Patientadvised to follow up with PCP if symptoms persist or worsen. Patient verbalized understanding and agreement with treatment plan. March,Vaginal yeast infection (ICD-10 - B37.31)requests rx - states she easily has this problem on antibiotics. [facility] Other 02-06-2023 Evaluation note* Encounter Date Diagnosis Assessment Notes Treatment Notes Treatment Clinical Notes Dec, Acute non-recurrent maxillary si nusitis (ICD-10 - J01.00) [facility] Other 02-02-2023 Evaluation note* Encounter Date Diagnosis Assessment Notes Treatment Notes Treatment Clinical Notes Dec, Acute non-recurrent maxillary si nusitis (ICD-10 - J01.00) Testing for influenza as her negative COVID tests were not conclusive at home. Patient prefers to wait. Strongly suspect she has strep throat. Updated medication and allergy list in chart. Patient will call if her symptoms fail to improve [facility] Other Evaluation noteNo assessment information available [facility] Work Phone: Evaluation noteNo InformationNort [employer] Other Evaluation note* Diagnosis Intractable chronic migraine without aura and without status migrainosus ([facility]/HCC)- Primary ADD (attention deficit disorder) without hyperactivity Attention deficit disorder without mention of hyperactivity [facility] Diagnosis Onset Date Resolution Status Right otitis media noneactiveSore throatnoneactive [facility] Work Phone: Evaluation note* Diagnosis Intractable chronic migraine without [...] in [facility]* Diagnosis Chronic migraine without aura, not intractable, without status migrainosus (CMS/HCC)- Primary Chiari malformation type I (CMS/HCC) Compression of 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 deficit disorder without mention of hyperactivity Demyelinating disease of central nervous system (HCC) (CMS/HCC) Unspecified demyelinating disease of central nervous system [facility]* Diagnosis Onset Date Resolution Status Admit Date CKD (chronic kidney disease) acuteNovember 2023 10:24am [facility] Work Phone: Evaluation note* Diagnosis ADD (attention deficit disorder) without hyperactivity Attention deficit disorder without mention of hyperactivity [facility]* Diagnosis ADD (attention deficit disorder) without hyperactivity- Primary Attention deficit disorder without mention of hyperactivity [facility]* Diagnosis Intractable chronic migraine without aura and without status migrainosus (CMS/HCC)- Primary Autoimmune disease (CMS/HCC) Autoimmune disease, not elsewhere classified [facility]* Diagnosis ADD (attention deficit disorder) without hyperactivity Attention deficit disorder without mention of hyperactivity [facility]* Diagnosis ADD (attention deficit disorder) without hyperactivity Attention deficit disorder without mention of hyperactivity [facility]* Diagnosis Intractable chronic migraine without aura and without status migrainosus (CMS/HCC)- Primary Autoimmune disease (CMS/HCC) Autoimmune disease, not elsewhere classified [facility]* Diagnosis Intractable chronic migraine without aura and without status migrainosus (CMS/HCC)- Primary Cognitive decline Other specified hypothyroidism Autoimmune disease (CMS/HCC) Autoimmune disease, not elsewhere classified [facility]* Diagnosis ADD (attention deficit disorder) without hyperactivity Attention deficit disorder without mention of hyperactivity [facility]* Diagnosis Intractable chronic migraine without aura and without status migrainosus [facility]* Diagnosis ADD (attention deficit disorder) without hyperactivity Attention deficit disorder without mention of hyperactivity [facility]* Diagnosis Intractable chronic migraine without aura and without status migrainosus- Primary [facility]* Diagnosis Intractable chronic migraine without aura and without status migrainosus ADD (attention deficit disorder) without hyperactivity Attention deficit disorder without mention of hyperactivity documented in this encounter [facility] general Narrative - Reported* Type Description Date Medical History proteinuria Medical HistoryCKD (chronic kidney disease)Medical HistoryanxietyMedical History migraine headacheSurgical HistoryC section, w1Zoenlhcg Historybilateral [id number] Historykidney cmgcvi90/2017Surgical History hysterectomyHospitalization Historychild birthHospitalization Historylow k+ [id number] [facility] [employer] Other History general Narrative - ReportedNortDuke Lifepoint Healthcare [employer] Other Summary Purpose Family History Relationship Condition Age at Onset Recorded Date/T mil Not Specified Diabetes mellitus Unknown HypertensionUnknown Relationship Condition Age at Onset Recorded Date/T mil mother Diabetes mellitus Unknown HypertensionUnknown Advance Directives Advance Directive Response Recorded Date/ Time Advance Directives No November 28, 2020 1:52pm Advance Directive Response Recorded Date/ Time Advance Directives No February 10 11:11am Advance Directive Response Recorded Date/ Time Advance Directives No February 10 10:11am Chief Complaint and Reason for Visit Chief Complaint g43.909 g37.9 Chief Complaint Sinus Congestion, Co ugh, Headache, Sore Amb Documentation Cough, congestion, ear painReason for VisitRight otitis media Sore throat Chief Complaint Amb Documentation Cough, congestion, ear pain UnknownReason for VisitRight otitis media Sore throat Chief Complaint Admit Date Wellness September 17, 2024 1 0:24am Reason for Visit Admit Date CKD (chronic kidney disease) September 10:24am Reason for Referral SpecialtyDiagnoses / ProceduresReferred By ContactReferred To ContactNeurology Diagnoses Intractable chronic migraine without aura and without status migrainosus (CMS/HCC) Sammi Estrada NP [address] [place] [address] [place] [address] Sammi Estrada NP [address] [place] [address] Referral IDStatusReasonStart DateExpiration DateVisits RequestedVisits [id number] Review Additional Source Comments INFORMATION SOURCE (unrecogn ized section and content) DATE CREATED AUTHOR 05/05/2018 [facility] DATE CREATED AUTHOR AUTHOR'S ORGANIZ ATION 02/13/2021 [facility] DATE CREATED AUTHOR AUTHOR'S ORGANIZ ATION 08/19/2021 [facility] DATE CREATED AUTHOR AUTHOR'S ORGANIZ ATION 12/03/2021 [facility] DATE CREATED AUTHOR AUTHOR'S ORGANIZ ATION 10/12/2024 [facility] DATE CREATED AUTHOR AUTHOR'S ORGANIZ ATION 07/17/2025 [facility] EPIC Care Teams (unrecognized sec tion and content) Team Status: Inactive Member Role Status Dates Yelitza Jones MD Primary Care Provider Active Sammi Estrada APRN [employer]-CAttending ProviderActive Team Status: Active Member Role Status Dates Yelitza Jones MD Primary Care Provider Active Team Status: Inactive Member Role Status Dates Luisa Mckeon NP-C Attending Provider Active S tart: November 14, 2023 End: November 14, 2023 Team Status: Active Member Role Status Dates Yelitza Jones MD Primary Care Provider Active Start: February 02, 2024 Ana Hurley LPNAtreal ProviderActiveStart: February 02, 2024 Team Status: Inactive Member Role Status Dates Yelitza Jones MD Primary Care Provider Active Start: February 11, 2024 End: February 10rodrigo Mckeon NP-CAttenyolis ProviderActiveStart: February 11, 2024 End: February 11, 2024 Team Status: Inactive Member Role Status Dates Umberto Jung MD Attending Provider Active Start: March 04, 2024 End: March 04, 2024Team MemberRelationshipSpecialtyStart DateEnd Date Yelitza Jones MD [address] [facility] [place] [id number] PCP - GeneralFamily Oxmfwtwr45/7/24Team MemberRelationshipSpecialtyStart DateEnd Date Yelitza Jones MD [address] [place] [facility] [place] [address] PCP - Generalmi Afnvqkih38/7/24 Team Status: Inactive Member Role Status Dates Yelitza Jones MD Primary Care Provide r, Attending Provider Active Start: September 17, 2024 End: September 17, 2024Team MemberRelationshipSpecialtyStart DateEnd Date Yelitza Jones MD [address] [place] [facility] [place] [address] PCP - [facility]Ad[facility]09/16/24Team MemberRelationshipSpecialtyStart DateEnd Date Yelitza Jones MD [address] [place] [facility] [address] [facility] - [facility] Anzbkfps47/7/24Team MemberRelationshipSpecialtyStart DateEnd Date Yelitza Jones MD [address] [place] [facility] [address] PCP - GeneralFami Jddephco66/7/24Team MemberRelationshipSpecialtyStart DateEnd Date Yelitza Jones MD [address] [place] [facility] [address] [facility] - [facility] Lljzocei41/7/24Team MemberRelationshipSpecialtyStart DateEnd Date Yelitza Jones MD [address] [place] [facility] [address] P[facility] - [facility] Vquqbclu60/7/24Team MemberRelationshipSpecialtyStart DateEnd Date Yelitza Jones MD PCP - [facility]Mon[facility]icsly Rdmrpiew72/7/24Team MemberRelationshipSpecialtyStart DateEnd Date Yelitza Jones MD PCP - [facility]Mon[facility]icsly Iirviqhq45/7/24Team MemberRelationshipSpecialtyStart DateEnd Date Yelitza Jones MD PCP - Generalmily Fpdsbxad65/7/24Team MemberRelationshipSpecialtyStart DateEnd Date Yelitza Jones MD PCP - [facility] Adzbiejh25/7/24Team MemberRelationshipSpecialtyStart DateEnd Date Yelitza Jones MD PCP - [facility] Vyuqvfxt92/7/24Team MemberRelationshipSpecialtyStart DateEnd Date Yelitza Jones MD PCP - [facility] Ovcefrxj66/7/24Team MemberRelationshipSpecialtyStart DateEnd Date Yelitza Jones MD [facility] - [facility]Mon[facility]icsly Wuiktdxl12/7/24Team MemberRelationshipSpecialtyStart DateEnd Date [facility] Vfgqwpzx55/7/24Team MemberRelationshipSpecialtyStart DateEnd Date Yelitza Jones MD PCP - Generalmily Trqlruhm20/7/24Team MemberRelationshipSpecialtyStart DateEnd Date Yelitza Jones MD PCP - [facility] Wlzsqges51/7/24 Goals (unrecognized section and content) Goals may be documented in a n alternate sectionNo InformationNo InformationNo InformationNo InformationNo InformationNo InformationNo InformationNo InformationNo InformationNo InformationGoals may be documented in an alternate sectionGoals may be documented in an alternate sectionGoals may be documented in an alternate section REASON FOR VISIT (unrecogniz ed section and content) ReasonOnset DateCommentsMed Dijzjk614ReasonOnset DateCommentsMed Refill 4ReasonOnset DateCommentsMed Gpjpya104ReasonOnset DateComments Med Jomsex034ReasonOnset DateCommentsMed Cfrkxk474ReasonOnset Date CommentsMed Suteoc8012/05/2024ReasonOnset DateCommentsMed Jmaref3901/06/2025Reason Onset DateCommentsMed Npjbar9402/08/2025ReasonOnset DateCommentsMed Refill 03/10/2025ReasonOnset DateCommentsMed Hfncst1504/07/2025ReasonOnset DateComments Med Hsnpzp5605/06/2025ReasonOnset DateCommentsMed Qmdrpv3806/01/2025ReasonComments Med RefillReasonOnset DateCommentsMed Ucsdmu0407/04/2025ReasonOnset DateComments Med Cuvgvs6308/02/2025ReasonOnset DateCommentsMed Jvuzht3609/04/2025 FOR RECORDS PERTAINING TO PATIENTS WHO ARE [...] BE BASED ON THE PRIMARY CLINICAL RECORDS. [employer] [facility]. provides no warranty or guarantee of the accuracy or completeness of information in this document.
== END 2025-09-08 16:26 | disposition home or self-care (01) ==
LOC: MAMMO 16:26
PROVIDERS: PCP Family Medicine; Visit Provider Family Medicine
DX: Z12.31 Encounter for screening mammogram for malignant neoplasm of breast (principal)
CPT/HCPCS: 77063; 77067

== ENCOUNTER 2025-09-20 14:57 | Outpatient (OUT) | payer BC, SELFPAY ==
--- OUTSIDE RECORDS SUMMARY | 2020-12-21 06:30 | XMS_ITS | Continuity of Care Document ---
Author Organization 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, [address] [place] [address], [id number], tel:[phone] COVID ECHD No Information Prieto Couch. [address] [place], [place], [id number], . tel:[phone] [facility], [address], [place], [id number], tel:[phone] COVID ECHD No Information Prieto Couch. [address], [place], [id number], . tel:[phone] Family History Family Member Type Diagnosis Age At Onset No Information Immunizations Vaccine Date Status Comments Moderna COVID administered Source: New Im munization Record Moderna COVID administered Source: New Im munization Record Payers Payer name Insurance type Covered green party ID Authoriza tion(s) [facility] CI [id number] [facility] CI [id number] [facility] CI [id number] Social History Type Description Quantity Date Captured Comments Alcohol Use Details Unknown Caffeine Use Details Unknown Tobacco Use Status No Information Smoking Status No Information Sex Female Sexual Orientation Straight or heterosexual Gender Identity Female Chief Complaint And Reason For Visit No Information Reason For Referral Reason For Referral No Information History Of Present Illness Encounter Date Complaint History Of Prese nt Illness No Information Functional Status Date Functional Assessmen t No Information Instructions Date Instruction Additional Infor mation No Information Assessments Type Assessment Date No Information Patient Care Teams Name Effective Dates (start - stop) Status Members No Information
--- OUTSIDE RECORDS SUMMARY | 2025-09-19 05:55 | XMS_ITS | Continuity of Care Document ---
Author Organization [facility] Address [address] [place] [address] Phone Care Team Providers Care Occupational Health Professional Name Role Phone Dora Ferraro MD Primary Care Provider Dora Ferraro MD Attending Provider Care Teams Patient Care Team Team Status: Active Member Role/Relationship Status Dates Dora Ferraro MD Primary Care Provider Active Patient Care Team Team Status: Inactive Member Role/Relationship Status Dates Dora Ferraro MD Primary Care Provider Active Start: September 19, 2025 End: September 19, 2025Dora Ferraro MDAttending ProviderActiveStart: September 19, 2025 End: September 19, 2025 Chief Complaint and Reason for Visit Chief Complaint Admit Date Wellness September 19, 2025 9:45am Reason for Visit Admit Date CKD (chronic kidney disease) September 192024 9:45am Menopausal and perimenopausal disorder N ovember 2024 9:45am Allergies, Adverse Reactions, Alerts Allergen Type Severity Reaction Last Updated Verified Status Comments metronidazole Allergy Unknown Hives September 19, 2025 10:20am Yes Active Onset Date: 01/09/2018 NSAIDS (Non-Steroidal Anti-Inflamma Allergy Unknown Unknown Reaction, kidney disease September 19, 2025 10:20am Yes Active PenicillinsAllergyUnknownHivesNovember 2024 10:20amYesActivesumatriptan AllergyUnknownHivesNovember 2024 10:20amYesActive Social History Smoking Status Status Start Date End Date Date of Observa tion Never smoked tobacco (finding) February 11, 2024 11:19am Observation Status Observation Response Date of Response Legal Sex Female (finding) Sex Assigned At BirthFeCade 1984[facility] Family History Relationship Condition Age at Onset Recorded Date/T mil mother Diabetes mellitus Unknown HypertensionUnknown Problems Active Problems Problem Diagnosis/Recorded Date Onset Date Stat Screening mammogram for breast cancer August 22 10:52am Unknown Active Viral URI with cough October 11, 2024 1:07pm Unknown Active Menopausal and perimenopausal disorder September 19, 2025 10:36am Unknown Active Pain of right breast January 20, 2024 3:03pm Unknown Active Cough October 11, 2024 12:30pm Unknown A ctive Wellness examination September 24, 2024 8:32am Unknow n Active CKD (chronic kidney disease) February 02, 2024 1:15pm U nknown Active Bronchitis October 21, 2024 12:43pm Unknown Active Medications Medication Status Dose Units Route Directions Qty Days Refills S tart Date Stop Date End Date Reason(s) Instructions Adherence Azithromycin 250 mg tablet Discontinued 0 .ROUTE.AEXTSKN79IizyogppOctober 21, 2024 1:54pmDece2023 10:03amTAKE 2 TABLETS BY MOUTH TODAY, THEN TAKE 1 TABLET DAILY FOR 4 DAYS DIRECTED Azithromycin 250 mg tabletDiscontinued0.ROUTE.DMITDCL63JxfadwhyOctober 22, 2024 10:03amNoveer 2024 10:21amTAKE 2 TABLETS BY MOUTH TODAY, THEN TAKE 1 TABLET DAILY FOR 4 DAYS DIRECTEDValacyclovir (Valtrex) 1 gram tablet Oskwurndhyuo1762JIHLOubeo digcc50Oquxlppm 19th, 2024 12:00amMarch 2024 10:47amValacyclovir 1 gram tabletDiscontinued0.ROUTE.UDIYLXT16Njcpa 2024 10:47amNovember 2024 10:21amTAKE 2 TABLETS BY MOUTH TWICE A DAY Lisdexamfetamine 40 mg sccjlfgWriswefsrihl0JAGWFQhzkp8Qiqqc 2023 11:00pm February 11, 2024 10:22amFreeTextSi capsule in the morning Orally Once a day; Note: Source Status: Taking; Provider: Linda Moran ( ) Sertraline (Zoloft) 50 mg hafnxdHspfdb01QRXCIqrnxBlbmz 2023 11:00pm FreeTextSi tablet Orally Once a day; Note: Source Status: Taking; Provider: Linda Moran ( )Complies with drug therapyNaltrexone 50 mg yenpncNgtcontfptnk18ONCNOfodkAhyap 2023 11:00pmSeptember 17, 2024 10:40am Serdexmethylphen-Dexmethylphen (Azstarys) 26.1 mg- 5.2 mg capsuleDiscontinued1 TABPOEvery ghypgpt9Oawjh 2023 11:00pmSeptember 17, 2024 10:41amAzithromycin (Zithromax Z-Alexy) 250 mg oizrqhUlzouuczcgpl679AFFNQydkx137Knwpq 2023 11:00pmSeptember 17, 2024 10:40amtake 2 tabs today and 1 daily for the next 4 daysAzithromycin 250 mg hcrdkdNkbdmrwytrsy2GR.DEITAPD38XnjpwttcOctober 14, 2024 12:[facility]am[facility] 1:54pmFor 250 mg dose pack: take 500 mg today (day 1), then 250 mg for 4 days (days 2-5) POAlbuterol Sulfate 90 mcg/actuation HFA aerosol okcdazuRtwwudsebfjz1DUCZUZEOIASLUOZNTWX 4-6 HOURS as needed for shortness of breath or wheezing8.50October 14, 2024 12:00[facility]2024 10:21amMethylprednisolone 4 mg tablets,dose wrzrUwxbpwuxydul3HPrdg package cftrgpytmi759Cosmjdgk 5th, 2024 12:00amNove2024 10:21amPO PER PKG DIR for 6 daysValacyclovir 1 gram tabletActive0.ROUTE.COMPLEX as neededSeptember 19, 2025 10:21amTAKE 2 TABLETS BY MOUTH TWICE A DAY PRN;UnknownTopiramate (Topamax) 25 mg pwiactEwhwioerbvur43GUKAAanotAgvifbyv 8th, 2024 12:00am[facility]20[facility] 11:49amDextroamphetamine-Amphetamine (Adderall) 30 mg lhuubiVyveqf87YN XBKkwpq1WijdzmifSeptember 17, 2024 12:00amComplies with drug therapyUbrogepant (Ubrelvy) 100 mg qnuuwuUkvgjz608BEFW.prnNovember 2023 12:00amComplies with drug therapy Immunizations Immunization Event Date Not Given Reason Dose Number General Operator Lot Number Reason(s) Given Vaccine Information Statement (VIS) Detail Administration Location influenza, unspecified formulation August 10, 2020 Vital Signs Vital Reading Result Reference Range Collection Date/Time Height 62 [in_i] September 19, 2025 10:70lcMgogyz63.23 kgNov2024 10:20amHeart Rate80 /zay72-355DxbrxdunSeptember 19, 2025 10:20amBP Jjgbwchy748 mm[Hg]100-140September 19, 2025 10:20amBP Cclvyimgg00 mm[Hg]60-100September 19, 2025 10:20amBMI (Body Mass Index)24.7 kg/m4KvdeqfszSeptember 19, 2025 10:20am Advance Directives Advance Directive Response Recorded Date/ Time Advance Directives No February 10 10:11am Insurance Providers Guarantor Latisha Madrid Address [address] [place] [phone] Info.Home Phone: Coverage Status Update:2025 Payer Group Member ID Coverage Type Subscriber Relationship to Subscriber Effective Date Expiration Date Cesar SOLIS/TIGRE [id number]: [id number] [address] [place] [phone] Home Phone: Email: [email or web address] Id: [id number]: [id number] [address] [place] [phone] Home Phone: Email: [email or web address] Healthcare Id: [id number] R Kre Id: [id number] [address] [place] [phone] Home Phone: Encounters Encounter Location(s) Arrival/Admit Date Discharge/Departure Date Discharge/Departure Disposition Provider(s) Departed Physician/ Provider Office Visit -[facility] September 19, 2025 9:45am September 19, 2025 10:44am Discharged to home care or self care (routine discharge) Dora Ferraro MD Recent Diagnosis Onset Date Admit Date CKD (chronic kidney disease) Unknown Sep 9:45am Menopausal and perimenopausal disorder Unknown September 19, 2025 9:45am Assessments Diagnosis Onset Date Resolution Status Admit Date CKD (chronic kidney disease) acuteSeptember 19, 2025 9:45amMenopausal and perimenopausal disorderacute September 19, 2025 9:45am Plan of Treatment Future Tests Future scheduled test information is unavailable Pending Tests Test Name Ordered Date Scheduled Date Estradiol September 19, 2025 10:35am Luteinizing HormoneSeptember 19, 2025 10:35am Future Visits Future appointment information is unavailable Future Procedures Procedure Name Ordered Date Scheduled Date Testosterone September 19, 2025 10:40am Basic Metabolic PanelSeptember 19, 2025 10:36amFollicle Stimulating Hormone September 19, 2025 10:35amMicroAlb Creat Ratio,UNovember 2024 10:36am Future Medications Future medication information is unavailable Patient Instructions Patient instructions are unavailable
--- OUTSIDE RECORDS SUMMARY | 2025-09-20 15:04 | XMS_ITS | Clinical Summary ---
Author Organization [facility] Healthcare Address [address] [place] [address] Care Team Providers Care Brake Reliner Name Role Phone Dora Ferraro MD Primary Care Provider [phone] Allergies Active AllergyReactionsCriticalityNoted DdmeDdsknikyUlhczvalmjzJicmNxx59/31/2023 Ztewhoceakgxd72/03/2024 Other Reaction(s): Hives VvsccrNpmywib02/09/2021 Other Reaction(s): kidney issues Xkskwvyepul02/03/2024 Other Reaction(s): Hives Medications MedicationSigDispense QuantityRefillsLast FilledStart DateEnd DateStatus sertraline (Zoloft) 50 MG tablet Indications:Depression, unspecified depression typeTake 1 tablet (50 mg) by mouth Daily 90 tablet /[id number] Botox 200u vial IJ Soln 200 units injection Indications:Intractable chronic migraine without aura and without status migrainosusAS DIRECTED 155 UNITS INJECTION EVERY 90 DAYS 1 each 5Active erenumab (Aimovig) 140 MG/ML injection Indications:Intractable chronic migraine without aura and without status migrainosusInject 1 mL (140 mg) under the skin every 28 (twenty-eight) days 3 mL 309506Active Ubrogepant (Ubrelvy) 100 MG tablet Indications:Intractable chronic migraine without aura and without status migrainosusTake 1 tablet by mouth if needed (1 po onset migraine may repeat in 2 hours max 200 mg per dya) 16 tablet 111/4610786Active amphetamine-dextroamphetamine (Adderall) 30 MG tablet Indications:ADD (attention [...] Active Problems ProblemNoted DateDiagnosed DatePain of right qcxgsc7809/16/2024DD (attention deficit disorder) without isrfldljwyaql99/23/2024Essential hypertension 01/04/20248372Toxmpcbqhxaf36/25/2024orderline high blood jnirvbot09/25/2024hronic migraine without aura, not intractable, without status kmkfpfaahoj08/31/2023 Demyelinating disease of central nervous qnhcoi6006/09/2023Internal derangement of right knee06/09/2023Intractable chronic migraine without aura06/09/2023Nephrotic helocvee95/31/2023Small fiber /31/2023Vitamin D nppamrpqxq16/31/2023 Nausea vomiting and yldznkjt77/20/2017FSGS (focal segmental glomerulosclerosis) 07/15/2017Hypotension due to drugs07/15/2017 Encounters DateTypeDepartmentCare HdvoAqwzdipmwni76/04/2025Orders Only [facility] [address] [place] [phone] Sammi Alanis NP 09/04/2025Refill [facility] [address] [place] [place] [phone] Nixon Jean Baptiste MD Intractable chronic migraine without aura and without status migrainosus; ADD (attention deficit disorder) without mosvhgfbbppic87/23/2025Refill [facility] [address] [place] [place] [id number] Nixon Jean Baptiste MD ADD (attention deficit disorder) without fmckxubcxvrbs05/05/2025 12:15 PM EDT Procedure Visit [facility] [address] [place] [address] Sammi Alanis NP Intractable chronic migraine without aura and without status migrainosus (Primary Dx)07/15/2025amboo flowsheet [facility] [address] [place] [phone] Sammi Alanis NP 07/15/20254286Ydlbrw23/25/2025Refill [facility] [address] [place] [address] Sammi Alanis NP ADD (attention deficit disorder) without hyperactivityfrom Last 3 Months Immunizations ImmunizationAdministration DatesNext DueHep B, adult03/10/2015,11/09/2014, 09/02/2014Influenza, seasonal, injectable, preservative free08/09/2020 Pneumococcal Polysaccharide FRMY14667811Ygjz32/24/2014 Family History Medical HistoryRelationNameCommentsDiabetesBrotherCOPDFatherDiabetesFather HypertensionFatherDiabetesMaternal GrandfatherHeart diseaseMaternal Grandfather Lung diseaseMaternal GrandfatherOther cancerMaternal GrandfatherBladderDiabetes Maternal GrandmotherLung cancerMaternal GrandmotherClotting disorderMotherin legsDepressionMotherDiabetesMotherHypertensionMotherDiabetesPaternal Grandfather Kidney diseasePaternal GrandfatherLung cancerPaternal GrandfatherDiabetes Paternal GrandmotherHypertensionPaternal GrandmotherStrokeSiblingRelationName OqyxqeYgflnlgiClkivmmZotloilbKuozfa8GdzjaiVwrlnOzepqseg GrandfatherDeceased Maternal GrandmotherDeceasedMotherAlivePaternal GrandfatherDeceasedPaternal GrandmotherDeceasedSiblingAlive Social History Tobacco UseTypesPacks/DayYears UsedDateSmoking Tobacco: NeverSmokeless Tobacco: Never Tobacco Cessation:Counseling Given: Not Answered Alcohol UseStandard Drinks/WeekCommentsNot Currently2 (1 standard drink = 0.6 oz pure alcohol)Caffeine intake: more than 4 cups per day coffee, soda CommentsNoSex and Gender InformationValueDate RecordedSex Assigned at Nubrve3909/04/2023 3:23 PM EDTLegal HwaPulzxn84/15/2023 6:59 PM EDTGender Identity Owsuqy5509/04/2023 3:23 PM EDTSexual OrientationNot on file Last Filed Vital Signs Vital SignReadingTime TakenCommentsBlood Xtxofgje412/8009 12:11 PM EDT Zrksw995709/17/2023 2:11 PM ESTTemperature--Respiratory Nkjw044107/15/2025 12:11 PM EDTOxygen Hwjnnzppbc08%07/15/2025 12:11 PM EDTInhaled Oxygen Concentration-- Rycfma38.3 kg (133 lb)07/15/2025 12:11 PM ZPQTcbxzs070 cm (5' 3 )12/09/2024 3:30 PM ESTBody Mass Index23.56012/09/2024 3:30 PM EST Plan of Treatment DateTypeDepartmentCare Team (Latest Contact Info)Ulaaxoohsig48/04/2025 10:45 AM ESTProcedure Visit [facility] [address] [facility] [address] [place] [address] Sammi Alanis, BOAT FUELER [address] [facility] [address] [place], [place] [id number] Health MaintenanceDue DateLast DoneCommentsPneumococcal Vaccine: Pediatrics (0 to 5 Years) and At-Risk Patients (6 to 64 Years) (2 of 2 - PCV)05/17/2020 05/17/20192029Zmmbyczat37/20/2023COVID-19 Vaccine ( - 2024- season)2025 07/16/2024, 10/12/2021, 12/21/2020, Additional history existsInfluenza Vaccine (#1)509/04/2024, 08/09/2020 Insurance * Guarantor: Latisha Madrid AAccount TypeRelation to PatientDate of BirthPhone Billing AddressPersonal/YkxollGueq1985 [address] [phone] MemberSubscriberPlan / Payer (Effective 2024-Present)Name:Latisha Madrid Member ID:[id number] Relation to Subscriber:SelfName:Latisha Madrid Subscriber ID:[id number] Payer ID:Not on file Group ID:[id number] Type:Not on file Address: [facility] [address] [place] [phone] Care Teams Team MemberRelationshipSpecialtyStart DateEnd Date Dora Ferraro MD PCP - GeneralFamily Jmclowya07/7/24
--- OUTSIDE RECORDS SUMMARY | 2025-09-20 15:04 | XMS_ITS | Clinical Summary ---
Author Organization [facility] Address [address] [facility], [address] [place] [address] Care Team Providers Care Intervention Teacher Name Role Phone Dora Ferraro MD Primary Care Provider [phone] Allergies No known active allergies Medications MedicationSigDispense QuantityRefillsLast FilledStart DateEnd DateStatus ondansetron (ZOFRAN-ODT) 4 MG disintegrating tablet Take 1 tablet by mouth every 8 hours as needed for Nausea or Vomiting 30 tablet 10/30/2017Active ondansetron (ZOFRAN ODT) 4 MG disintegrating tablet Take 1 tablet by mouth every 8 hours as needed for Nausea 40 tablet 10/30/2017Active Active Problems ProblemNoted DateDiagnosed DateN/V, D & LLQ pain10/29/2017H/O Lap tubal ligation (2015)10/29/2017Total Abdominal Hysterectomy w/ B/L ovarian preservation (10/17/17)10/28/2017 Resolved Problems ProblemNoted DateDiagnosed DateResolved DateAntepartum renal mdmflma0208/06/2012 10/29/2017Threatened labor, glteywaazk49 Social History Tobacco UseTypesPacks/DayYears UsedDateSmoking Tobacco: NeverAlcohol UseStandard Drinks/WeekCommentsNo0 (1 standard drink = 0.6 oz pure alcohol)Comments NoSex and Gender InformationValueDate RecordedSex Assigned at BirthNot on file Legal VeaIbyudp34/10/2013 6:37 PM ESTGender IdentityNot on fileSexual OrientationNot on file Last Filed Vital Signs Vital SignReadingTime TakenCommentsBlood Irsilsrp301/7310/30/2017 6:27 PM EST Hgyta889910/30/2017 6:27 PM XXHDksqotptkjj42.9 ??C (98.5 ??F)10/30/2017 6:27 PM ESTRespiratory Fqag571112/31/2016 6:27 PM ESTOxygen Qetoflkcch48%10/30/2017 6:27 PM ESTInhaled Oxygen Concentration--Etfqzv17.5 kg (144 lb 4.8 oz)10/28/2017 10:11 PM WRJJctkaa527 cm (5' 3 )10/28/2017 10:11 PM ESTBody Mass Index25.56 10/28/2017 10:11 PM EST Plan of Treatment Not on file Insurance Advance Directives * Full Code (Latest Code Status on File) Date ActivatedDate MhbjrmyfokfUsdczcbf09/19/2017 10:03 PM10/30/2017 9:03 PM Care Teams Team MemberRelationshipSpecialtyStart DateEnd Date Dora Ferraro MD PCP - Ayxeyqo37/27/15
--- OUTSIDE RECORDS SUMMARY | 2025-09-20 15:04 | XMS_ITS | Encounter Summary ---
Author Organization [facility] Healthcare Address [address] [facility] [address] Care Team Providers Care Machine Learning Intern Name Role Phone Dora Ferraro MD Primary Care Provider [phone] Encounter Details DateTypeDepartmentCare Team (Latest Contact Info)Zuzmxlqmoom05/04/2025Or[facility] [address], [place] [phone] Sammi Alanis INDUSTRIAL FURNACE FABRICATOR [address] [facility] [address], [place] [address] Social History Tobacco UseTypesPacks/DayYears UsedDateSmoking Tobacco: NeverSmokeless Tobacco: NeverAlcohol UseStandard Drinks/WeekCommentsNot Currently2 (1 standard drink = 0.6 oz pure alcohol)Caffeine intake: more than 4 cups per day coffee, soda CommentsNoSex and Gender InformationValueDate RecordedSex Assigned at RxchfHeudxh34/26/2023 3:23 PM EDTLegal TuqRbnjkp15/15/2023 6:59 PM EDTGender RjgwzkhfIoqsti47/26/2023 3:23 PM EDTSexual OrientationNot on filedocumented as of this encounter Plan of Treatment DateTypeDepartmentCare Team (Latest Contact Info)Igwfysunnos03/04/2025 10:45 AM ESTProcedure Visit [facility] [address] [facility] [address] [place] [address] Sammi Alanis NP [address] [facility] [place] [address] documented as of this encounter Visit Diagnoses Not on filedocumented in this encounter Care Teams Team MemberRelationshipSpecialtyStart DateEnd Date Dora Ferraro MD PCP - GeneralFamily Hzfuydrk29/7/24documented as of this encounter
--- OUTSIDE RECORDS SUMMARY | 2025-09-20 15:04 | XMS_ITS | Clinical Summary ---
Author Organization [facility] Address [address] [place] [address] Care Team Providers Care Medical Records Auditor Name Role Phone Dora Ferraro MD Primary Care Provider [phone] Allergies Active AllergyReactionsCriticalityNoted DateCommentsNsaids (Non-Steroidal Anti- Inflammatory Drug)Other: See Comments Cant take due to ckd Medications MedicationSigDispense QuantityRefillsLast FilledStart DateEnd DateStatus rosuvastatin 10 mg cpSP Active Active Problems ProblemNoted DateDiagnosed DateHypotension due to drugs07/15/2017FSGS (focal segmental glomerulosclerosis)07/15/2017Maternal proteinuria, antepartum 10/29/20162138Pkvywftuqoj38/20/2016Cyst of left ovary11/29/2015Previous with HELLP syndrome, zbhzuenaxq03/20/2016Previous complicated by -induced hypertension, umxrdkqibe76/20/2016 Family History Medical HistoryRelationCommentsNoneBrotheraliveNoneDaughteraliveNoneFatheralive Alzheimer's DiseaseMaternal GrandfatherCancerMaternal GrandfatherMultiple SclerosisMaternal GrandfatherCancerMaternal GrandmotherDiabetesMaternal GrandmotherMultiple SclerosisMaternal UncleDiabetesMotherHypertensionMotheralive varicose veinsMotherRelationStatusCommentsBrotherDaughterFatherMaternal GrandfatherMaternal GrandmotherMaternal UncleAliveMother Social History Tobacco UseTypesPacks/DayYears UsedDateSmoking Tobacco: NeverSmokeless Tobacco: Never Tobacco Cessation:Counseling Given: Yes Alcohol UseStandard Drinks/WeekCommentsNo0 (1 standard drink = 0.6 oz pure alcohol)PHQ-2AnswerDate RecordedPHQ-2 qshat4091Area Deprivation Index AnswerDate RecordedNational Score (1-100), lower number is lower riskNot on file 10/18/2020State Score (1-10), lower number is lower riskNot on file10/18/2020 Data from: https://www.neighborhoodatlas.medicine.[facility].edu/. Last address used for calculationNot on file10/18/2020EducationAnswerDate RecordedWhat is the highest level of school you have completed or the highest degree you have received?Associate degree: occupational, technical, or vocational program 1CommentsNoSex and Gender InformationValueDate RecordedSex Assigned at BirthNot on fileLegal CsgHbqyag27/23/2015 12:40 PM ESTGender IdentityNot on fileSexual OrientationNot on fileOccupationIndustryJob Start Date Job End DateMedical secretaryNot on fileNot on fileNot on file Last Filed Vital Signs Vital SignReadingTime TakenCommentsBlood Gbeyalrq118/7504 9:33 AM EDT Jqdoi379702/13/2021 9:33 AM LRMTqhrrdtjnol59.6 ??C (97.8 ??F)02/13/2021 9:33 AM EDTRespiratory Xugx929211/14/2016 5:31 PM ESTOxygen Sxbujavfdw149%02/13/2021 9:33 AM EDTInhaled Oxygen Concentration--Indjbk08.6 kg (157 lb 12.8 oz)02/13/2021 9:33 AM PNLZqnggr232.5 cm (5' 2 )02/13/2021 9:33 AM EDTBody Mass Index28.86 02/13/2021 9:33 AM EDT Plan of Treatment Health MaintenanceDue DateLast DoneCommentsAnxiety Kxyryyole08/20/2001Depression Luvuypbyj94/20/2001HIV Ipbpegsvi22/20/2001Hepatitis C Zklstcmsk42/20/2001 Cervical Cancer Ytodrizdg53/20/2004HPV Vaccine (1 - 3-dose SCDM series) 2010Mammogram Uqudpoghw13/20/2023DTaP,Tdap,Td Vaccine (2 - Td or Tdap) 41Covid-19 Vaccine ( - 2024- season)2025Influenza Vaccine (#1)2025Hepatitis B IiduobvZpriqyjrr81/01/2015, 11/09/2014, 09/02/2014 Insurance Care Teams Team MemberRelationshipSpecialtyStart DateEnd Date Dora Ferraro MD [address] [place] [address] PCP - GeneralFamily Rtxtigsj77/23/15
--- OUTSIDE RECORDS SUMMARY | 2025-09-20 15:06 | XMS_ITS | CCD ---
Author Organization [facility] Care Team Providers Care Occupational Analyst Name Role Phone YELITZA JONES Unavailable Unavailable JOSE L, TANESHA S Unavailable Unavailable JOSE L, TANESHA S Unavailable Unavailable JONES, DR YELITZA Ma Consulting Unavailable JONES, DR YELITZA Ma Attending Unavailable JONES, DR YELITZA Ma Admitting Unavailable JONES, DR YELITZA Ma Primary Care Unavailable JONES, DR YELITZA Ma Primary Care Unavailable SABA, SYL Admitting Unavailable FABIANA, DR UMBERTO Licona Consulting Unavailable HIGHLMALLORY, SYL Attending Unavailable SYL WALTER Consulting Unavailable [...] Primary Care Unavailable TERRI CURRY Admitting Unavailable [place], DR DIANA Beckwith Consulting Unavailable TERRI CURRY [...] MISC, DR MORSE Attending Unavailable MISC, DR MROSE Admitting Unavailable JONES, DR YELITZA Ma Primary [...] Unavailable MD Yelitza Jones Primary Care Provider [phone] JAGDISH Estrada Attending Provider Yelitza Jones Unavailable Hilary Pierce Unavailable Luisa Mckeon Unavailable Unavailable Primary Care Provider UnavailMD Umberto Bruce Attending Provider Yelitza Jones MD Primary Care Provider [phone] Umberto Jung Admitting Unavailable Umberto Jung Attending Unavailable Aleida Leiva Admitting Unavailable Aleida Leiva Attending Unavailable Yelitza Jones Primary Care Unavailable Yelitza Jones Primary Care Unavailable Efrain Jean Baptiste Admitting Unavailable Efrain Jean Baptiste Attending Unavailable Yelitza Jones MD Primary Care Provider [phone] SAMMI ESTRADA Attending Unavailab CLINT Nur Attending Unavailable EFRAIN JEAN BAPTISTE Attending Unavailable SAMMI ESTRADA Attending Unavailab SAMMI Cummins Attending Unavailab le Allergies Allergy ClassificationReported Allergen(s)Allergy TypeDate of OnsetReaction(s) Facility (1 source)NSAIDsDrug allergy (disorder)[facility] (20 sources)NSAIDsPropensity to adverse taqgoaaal02-98-6732KnmpkxvDjdjs [employer] Other (11 sources)PenicillinDrug AllergyNorthside Hospital DuluthXcalar Other (20 sources)SUMAtriptanDrug Wquacwd66-46-3998RjninyzFostoria City Hospital (20 sources)metroNIDAZOLEDrug Fxfcdbd53-72-2541PehbrvuFostoria City HospitalComment on above:Onset Date: 01/09/2018 (5 sources)PseudoephedrineDrug Yydxpmq87-80-0639MeupblgGbwtl [employer] Other (1 source)Allergies ReconciledPropensity to adverse reactionsLiberty Hospital [employer] Other (1 source)patient allergy list reviewed by nurse or physiciaPropensity to adverse dfyufecll32-47-8065Xvhxtbp:[facility] [employer] Other (20 sources)AmoxicillinDrug Haodpmp41-25-0452SkzvEDXQ [facility] (4 sources)Penicillins; Translations: [Penicillins]Allergy to substance 84-35-9610KsjpmMuqigzlheLima City Hospital (4 sources)NSAIDS (Non-Steroidal Anti-Inflamma; Translations: [NSAIDS (Non- Steroidal Anti-Inflamma]Allergy to igccrxvmm18-83-8403Tdmeqmt Reaction, kidney diseaseOhiohealth (1 source)metroNIDAZOLEDrug Nvwzrwn35-92-2365EzynpxfvtOhiohealth Repository (1 source)SUMAtriptanDrug Gobpuue51-63-7841UgzymifpuOhiohealth Repository Medications Current Medications MedicationDrug Class(es)DatesSig (Normalized)Sig (Original)[id number] 200 actuat albuterol 0.09 mg/actuat metered dose inhaler (2 sources)beta2-Adrenergic AgonistStart: 19-39-7194dwao 1 puff(s) by inhalation every six hours as needed for wheezingalbuterol HFA 90 mcg/act inhaler INHALE 1 PUFF EVERY 6 HOURS NEEDED FOR SHORTNESS OF BREATH OR WHEEZING 0 10/10/2023 ActiveALPRAZolam 0.25 mg oral tablet (2 sources)BenzodiazepineStart: 29-54-9598fhtf 1 tablet by mouth twice daily as neededALPRAZolam 0.25 MG 1 tablet Orally bid prn for 10 days May, Active amphetamine aspartate 7.5 mg / amphetamine sulfate 7.5 mg / dextroamphetamine saccharate 7.5 mg / dextroamphetamine sulfate 7.5 mg oral tablet (20 sources)Central Nervous System StimulantStart: 12-06-2024 End: 44-05-1229qanw 1 tablet by mouth once dailyamphetamine-dextroamphetamine (Adderall) 30 MG tablet Indications: 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 Take 1 tablet (30 mg) by mouth Daily 30 tablet 09/05/2025 10/05/2025 ActiveStart: 07-27-2024 End: 37-16-6520yrya 1 tablet by mouth once dailyamphetamine-dextroamphetamine (Adderall) 30 MG tablet Indications: 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 Take 1 tablet (30 mg) by mouth Daily 30 tablet 10/27/2024 11/26/2024 ActiveStart: 07-26-2024 End: 02-65-6331pidz 1 capsule by mouth every twenty-four hours in the morning amphetamine-dextroamphetamine XR (Adderall XR) 30 MG 24 hr capsule Indications: ADD (attention deficit disorder) without hyperactivity Take 1 capsule (30 mg) by mouth in the morning. Do not crush or chew.. 30 capsule 07/26/2024 07/27/2024 DiscontinuedStart: 06-24-2024 End: 28-33-5408nkab 1 capsule by mouth every twenty-four hours in the morning amphetamine-dextroamphetamine XR (Adderall XR) 30 MG 24 hr capsule Indications: ADD (attention deficit disorder) without hyperactivity Take 1 capsule (30 mg) by mouth in the morning. Do not crush or chew.. 30 capsule 06/24/2024 07/23/2024 Discontinued (Reorder)Start: 12-01-2023 End: 31-14-9854lfaa 1 capsule by mouth every twenty-four hours in the morning amphetamine-dextroamphetamine XR (Adderall XR) 30 MG 24 hr capsule Indications: ADD (attention deficit disorder) without hyperactivity Take 1 capsule (30 mg) by mouth in the morning. Do not crush or chew.. 30 capsule 0 12/01/2023 12/25/2023 DiscontinuedAtogepant (Qulipta) 60 MG tablet (2 sources)Start: 12-09-2024 End: 39-28-1809whkd 1 tablet by mouth once dailyAtogepant (Qulipta) 60 MG tablet Indications: Intractable chronic migraine without aura and withoutstatus migrainosus (CMS/HCC) Take 1 tablet by mouth Daily 30 tablet 11 12/09/2024 01/08/2025 Activedexamethasone 2 mg oral tablet (4 sources)CorticosteroidStart: 02-77-7324qzpVENKFgvjwb (Decadron) 2 MG tablet Indications: Demyelinating disease of central nervous system (HCC) (CMS/HCC) 2mg 3 pills po X3 days,2 pills po daily X3 days , then 1 pill po daily X3 days then stop 9 days 18 pills 18 tablet 1 07/22/2023 Active1 ml erenumab-aooe 140 mg/ml auto-injector (3 sources)Start: 07-19-2025 End: 21-52-0934qjbwlj 1 mL by subcutaneous injection onceerenumab (Aimovig) [...] ActiveModafinil ActiveNaltrexone (19 sources)Opioid AntagonistStart: 07-15-2024 End: 78-17-0596mgto 1 mg by mouth once dailyNaltrexone HCl powder Indications: Autoimmune disease (CMS/HCC) Take 1 mg by mouth Daily 30 g 07/15/2024 08/14/2024 ActiveStart: 02-02-2024 End: 81-40-1707xviv 1 tablet by mouth once dailyNaltrexone 50 mg tablet Discontinued 50 MG PO Daily February 01, 2024 11:00pm September 17, 2024 10:40am take 3 mg by mouth in the morningnaltrexone (Depade) 50 MG tablet Take 3 mg by mouth in the morning. 0 ActiveNaltrexone Activesertraline 50 mg oral tablet (20 sources)Serotonin Reuptake InhibitorStart: 02-02-2024 End: 53-36-1199ckdb 1 tablet by mouth once dailysertraline (Zoloft) 50 MG tablet Indications: Depression, unspecified depression type Take 1 tablet(50 mg) by mouth Daily 90 tablet 3 12/05/2024 12/05/2025 ActiveStart: 67-16-9786xbgegnbvjl (Zoloft) 50 MG tablet Indications: Migraine, unspecified, not intractable, without status migrainosus (CMS/HCC) TAKE 1 AND 1/2 TABLETS BY MOUTH EVERY DAY 135 tablet 2 05/09/2023 Activetake 1 tablet by mouth every twenty-four hours Zoloft 25 MG 1 tablet Orally Once a day Activetopiramate 25 mg oral tablet (14 sources)Start: 10-09-2024 End: 84-21-4987rgbv 1 tablet by mouth in the morningtopiramate (Topamax) 25 MG tablet Indications: Chiari malformation type I (CMS/HCC) , Chronic migraine without aura, not intractable, without status migrainosus (CMS/HCC) Take 1 tablet (25 mg) by mouth in the morning and 1 tablet (25 mg) before bedtime. 180 tablet 3 10/09/2024 03/29/2025 DiscontinuedStart: 43-24-3222bxtt 1 tablet by mouth once dailyTopiramate (Topamax) 25 mg tablet Active 25 MG PO Daily September 17, 2024 12:00am Completed/Discontinued Medications MedicationDrug Class(es)DatesSig (Normalized)Sig (Original)azithromycin 250 mg oral tablet (15 sources)Macrolide AntimicrobialStart: 02-11-2024 End: 27-18-0720ykqz 2 tablets by mouth once daily, then take 1 tablet by mouth once dailyAzithromycin (Zithromax Z-Alexy) 250 mg tablet Discontinued 250 MG PO Daily 04 14February 10, 2024 11:00pm September 17, 2024 10:40am take 2 tabs today and 1 daily for the next 4 daysStart: 12-06-4826Cvxpufzsnddj 250 MG as directed Orally 2 tabs po today, then 1 tab daily x 4 more days for 5 Oct, Active Start: 79-01-8792Afqkh: 35-01-3105Jxbbnqlubfft 250 MG as directed Orally 2 tabs po today, then 1 tab daily x 4 more days for 5 Dec, Active onabotulinumtoxina 200 unt injection (20 sources)Acetylcholine Release InhibitorStart: 07-15-2025 End: 20-71-3909pwczgsmedrndvcxiuA (Botox) injection 200 UnitsStart: 07-15-2025 End: 43-06-6603snuslu 200 [IU] by intramuscular injection qygc759 Units, Intramuscular, Once, On Fri07/15/25 at 1300, For 1 dose, Charging context for this clinic-administered medication: Medically Necessary/InsuranceStart: 03-24-2025 End: 97-69-6967duzosbbswsfpsxvtsO (Botox) injection 200 UnitsStart: 03-24-2025 End: 04-51-5809dkbdks 200 [IU] by intramuscular injection danh656 Units, Intramuscular, Once, On Fri03/24/25 at 1600, For 1 dose, Charging context for this clinic-administered medication: Medically Necessary/InsuranceStart: 12-09-2024 End: 48-53-7736kmiupfwserjwthoufS (Botox) injection 200 UnitsStart: 12-09-2024 End: 12-23-2987bawdcu 200 [IU] by intramuscular injection [id number] Units, Intramuscular, Once, On Fri12/09/24 at 1530, For 1 dose, Charging context for this clinic-administered medication: Medically Necessary/InsuranceStart: 07-15-2024 End: 20-92-0102pmfrzgxrnazeaaknrV (Botox) injection 200 UnitsStart: 07-15-2024 End: 07-77-0174odiyrm 200 [IU] by intramuscular injection mlho958 Units, Intramuscular, Once, On Fri07/15/24 at 1315, For 1 dose, Charging context for this clinic-administered medication: Medically Necessary/InsuranceStart: 03-17-2024 End: 41-09-5568Mdfvv 200u vial IJ Soln 200 units injection Indications: Intractable chronic migraine without aura and without status migrainosus DIRECTED 155 UNITS INJECTION EVERY 90 DAYS 1 each 3 06/15/2025 ActiveStart: 12-25-2023 End: 45-47-0167qebaahgbxquktfsukL (Botox) injection 200 UnitsBotox 200 units injection DIRECTED 155 UNITS INJECTION EVERY 90 DAYS 0 Activecyclobenzaprine hydrochloride 10 mg oral tablet (2 sources)Muscle RelaxantStart: 59-89-3240dylu 1 tablet by mouth three times daily as needed for muscle spasmsCyclobenzaprine HCl 10 MG 1 tab(s) Orally 3 times a day prn muscle spasms Jul, Not-Takingfluconazole 150 mg oral tablet (7 sources)Azole AntifungalStart: 43-01-2079ywnx 1 tablet by mouth once as neededDiflucan 150 MG 1 tablet Orally once for 10 days March, Not-Taking/PRNStart: 00-24-3420rhhzveliqgdgopzt dimesylate 40 mg oral capsule (12 sources)Central Nervous System StimulantStart: 02-02-2024 End: 71-45-4761lado 1 capsule by mouth once daily in the morningLisdexamfetamine 40 mg capsule Discontinued 1 CAP PO Daily February 01, 2024 11:00pm February 100:22am FreeTextSi capsule in the morning Orally Once a day; Note: Source Status: Taking; Provider: Linda Moran ( )Start: 12-25-2023 End: 00-41-0449dnox 1 capsule by mouth in the morningVyvanse 60 MG capsule Indications: ADD (attention deficit disorder) without hyperactivity Take 1 cap iglesia (60 mg) by mouth in the morning. 30 capsule 0 12/25/2023 01/24/2024 Active Start: 11-19-2023 End: 48-87-6101cjyb 1 capsule by mouth in the morninglisdexamfetamine (Vyvanse) 40 MG capsule Indications: ADD (attention deficit disorder) without hyper activity Take 1 capsule (40 mg) by mouth in the morning. 30 capsule 0 11/19/2023 12/25/2023 Discontinuedtake 1 capsule by mouth every twenty-four hoursVyvanse 40 MG 1 capsule in the morning Orally Once a day ActivemethylPREDNISolone 4 mg oral tablet (9 sources)CorticosteroidStart: 25-26-4321yjheiqHMWMZTEhrokl 4 MG as directed Orally for 6 days March, Not-Taking/PRNStart: 31-02-4378Ojnkxz 4 MG as directed Orally as directed for 6 days Jul, Not-Takingondansetron 4 mg disintegrating oral tablet (2 sources)Serotonin-3 Receptor AntagonistStart: 10-10-2023 End: 90-79-5835cwnckaullyq ODT (Zofran-ODT) 4 MG disintegrating tablet DISSOLVE 1 TABLET ON THE TONGUE EVERY 6 HOURS NEEDED FOR NAUSEA./ VOMITING 0 10/10/2023 12/25/2023 DiscontinuedSerdexmethylphen-Dexmethylphen (3 sources)Start: 02-11-2024 End: 86-06-7669Ssrtesdqdbgvgqso-Dexmethylphen (Azstarys) 26.1 mg- 5.2 mg capsule Discontinued 1 TAB PO Every morning February 10, 2024 11:00pm September 17, 2024 10:41amStart: 99-99-9921Eqzrhrcyitvopelr-Dexmethylphen (Azstarys) 26.1 mg- 5.2 mg capsule Active 1 TAB PO Every morning February 11, 2024 12:00amtriamcinolone acetonide 40 mg/ml injectable suspension (11 sources)CorticosteroidStart: 74-34-8039Fyspadg-40 Jul, 40 mgStart: 78-96-3384Ilxyutk (2 sources)Ubrelvy Not-Takingubrogepant 100 mg oral tablet (20 sources)Start: 15-75-5813Olduudxnrm (Ubrelvy) 100 mg tablet Active 100 MG PO .prn September 17, 2024 12:00amStart: 08-19-2024 End: 04-74-2871xgpy 1 tablet by mouth onceUbrogepant (Ubrelvy) 100 MG tablet Indications: Intractable chronic migraine without aura and without status migrainosus Take 1 tablet by mouth if needed (1 po onset migraine may repeat in 2 hours max 200 mg per dya) 16 tablet 11 06/01/2025 09/04/2025 Discontinued (Reorder)Start: 03-19-2024 End: 87-27-1460Tgxoosd 100 MG tablet 03/19/2024 08/19/2024 Discontinued (Reorder) Problems Active Problems Problem ClassificationProblemDateDocumented DateEpisodic/ChronicAnxiety disorders (1 source)Generalized anxiety disorder; Translations: [Generalized anxiety disorder]ChronicChronic kidney disease (13 sources)Chronic kidney disease; Translations: [Chronic kidney disease, unspecified]26-01-4995GyincuhOykgceo obstructive pulmonary disease and bronchiectasis (1 source)Bronchitis, not specified as acute or chronicEpisodicDisorders of lipid metabolism (1 source)Hyperlipidemia; Translations: [Hyperlipidemia, unspecified]Chronic Disorders usually diagnosed in infancy, childhood, or adolescence (20 sources)Attention deficit hyperactivity disorder, predominantly inattentive type; Translations: [Other specified behavioral and emotional disorders with onset usually occurring in childhood and adolescence]Onset: ChronicEssential hypertension (20 sources)Essential hypertension; Translations: [Essential (primary) hypertension]Onset: 269198-14-7866XmuwylfCdmwh and electrolyte disorders (2 sources)Hypokalemia; Translations: [Hypokalemia]Onset: 93-00-5872Cgolxwsn Fracture of lower limb (1 source)Stress fracture, [...] [Migrainewith aura, not intractable, without status migrainosus]Onset: 550907-42-3828EsohopePvcpvqscmubto and screening for infectious disease (5 sources)Contact with and (suspected) exposure to other viral communicable diseases; Translations: [Vaccination given]Onset: 08-39-2953GpvtloesCgtaeornl (2 sources)Upper respiratory tract infection due to Influenza; Translations: [Influenza due to unidentified influenza virus with other respiratory manifestations]Onset: 62-89-6802QksohcnsBhfqa disorders and dislocations; trauma-related (20 sources)Unspecified internal derangement of right knee; Translations: [Derangement of right knee]Onset: 45-27-0731QmjgqlsTdeujunej disorders (1 source)Excessive and frequent menstruation; Translations: [Excessive and frequent menstruation with regular cycle]ChronicMood disorders (1 source)Dysthymia; Translations: [Dysthymic disorder]ChronicMultiple sclerosis (5 sources)Multiple sclerosis; Translations: [MULTIPLE SCLEROSIS]Onset: 95-18-6600OyizthpWjerwdzup; nephrosis; renal sclerosis (20 sources)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; Translations: [Nephrotic syndrome]Onset: 43-83-6753FcjutbqOnwiijnnxiu deficiencies (20 sources)Vitamin D deficiency; Translations: [Vitamin D deficiency, unspecified]Onset: 381445-51-0516RwuyifjJgvni aftercare (1 source)History and physical examination, follow-up; Translations: [Encounter for follow-up examination after completed treatment for conditions other than malignant neoplasm]EpisodicOther circulatory disease (1 source)Other specified symptoms and signs involving the circulatory and respiratory systemsEpisodicOther connective tissue disease (5 sources)Pain in left foot; Translations: [PAIN IN LEFT FOOT]Onset: 06-05-2021 EpisodicOther connective tissue disease (4 sources)Pain in right foot; Translations: [PAIN IN RIGHT FOOT]Onset: 13-89-6435YyeliobjUwziy connective tissue disease (5 sources)Neuralgia and neuritis, unspecified; Translations: [NEURALGIA AND NEURITIS UNSPECIFIED]Onset: 51-04-3522GrsjliasMzhzv connective tissue disease (1 source)Neuralgia; Translations: [Neuralgia [...] disease of central nervous system, unspecified]Onset: 06-09-2023 19-50-8798YcsggcyAtygv nervous system disorders (20 sources)Small fiber neuropathy; Translations: [Polyneuropathy, unspecified] Onset: 234354-05-9011ZcbowwfZosua nervous system disorders (4 sources)Chiari malformation type I; Translations: [Compression of brain] 44-45-8141ActcyihTizty nervous system disorders (1 source)Impaired cognition; Translations: [Other symptoms and signs involving cognitive functions and awareness]91-96-8880HogukerqCyuhc nutritional; endocrine; and metabolic disorders (1 source)Overweight; Translations: [Overweight]EpisodicOther nutritional; endocrine; and metabolic disorders (1 source)Body mass index 25-29 - overweight; Translations: [Body mass index (BMI) 28.0-28.9, adult]EpisodicOther screening for suspected conditions (not mental disorders or infectious disease) (13 sources)Encounter for screening for lipoid disorders; Translations: [Other abnormal findings on diagnostic imaging of central nervous system]Onset: 36-43-6904CuziuxzuFxheg upper respiratory infections (1 source)Chronic sinusitis; Translations: [Chronic sinusitis, unspecified] ChronicOther upper respiratory infections (10 sources)Acute maxillary sinusitis, unspecified; Translations: [Acute sinusitis]Onset: 63-60-5133XgfbuobhZhcngb media and related conditions (5 sources)Acute secretory otitis media; Translations: [Other acute nonsuppurative otitis media, right ear]Onset: 97-98-7702RldymmdaTuvlylqb codes; unclassified (4 sources)Localized edema; Translations: [LOCALIZED EDEMA]Onset: 05-18-2021 EpisodicResidual codes; unclassified (1 source)Family history of diabetes mellitus; Translations: [Family history of diabetes mellitus]EpisodicResidual codes; unclassified (1 source)Tobacco user; Translations: [Tobacco use]EpisodicSystemic lupus erythematosus and connective tissue disorders (3 sources)Autoimmune disease; Translations: [Systemic involvement of connective tissue, unspecified]79-43-2741EqpowekWxowfir disorders (1 source)Hypothyroidism; Translations: [Other specified hypothyroidism] 26-19-0846Kupwjwe Past or Other Problems Problem ClassificationProblemDateDocumented DateEpisodic/ChronicAcute and chronic tonsillitis (1 source)Acute tonsillitis; Translations: [Acute tonsillitis, unspecified] Onset: 36-95-2508GslsjnqvWhgls bronchitis (1 source)Acute bronchitis; Translations: [Acute bronchitis, unspecified]Onset: 11-54-9683UzgnoihmTqykgnepl infection; unspecified site (1 source)Bacterial infectious disease; Translations: [Bacterial infection, unspecified, in conditions classified elsewhere and of unspecified site]Onset: 58-91-0043OqbfmskvWrjyuunsyhzmw of surgical procedures or medical care (20 sources)Drug-induced hypotension; Translations: [Hypotension due to drugs] Onset: 759591-87-6535WlpcfdjiMpakbznvf of teeth and jaw (1 source)Other specified disorders of temporomandibular joint; Translations: [Temporomandibular joint disc]Onset: 85-26-6042HowvfnnaAxfrfur and fatigue (5 sources)Other fatigue; Translations: [Fatigue]Onset: 45-75-3653KadxsgxyYnaqhj and vomiting (20 sources)Nausea, vomiting and diarrhea; Translations: [Nausea with vomiting, unspecified]Onset: 219167-04-4299AadkfqepWvqkpdxdffkj breast conditions (20 sources)Mastodynia; Translations: [Pain of right breast]Onset: 09-16-2024 25-51-3959YrwikzsgJsxdwxabjnd chest pain (1 source)Chest pain; Translations: [Chest pain, unspecified]Onset: 02-17-2018 EpisodicOther circulatory disease (20 sources)Prehypertension; Translations: [Elevated blood-pressure reading, without diagnosis of hypertension]Onset: 088765-16-7935UktlgabyVrlds lower respiratory disease (1 source)Cough; Translations: [Cough, unspecified]Onset: 48-99-9812Cmybzdol Other nervous system disorders (1 source)Ataxia, unspecified; Translations: [ATAXIA UNSPECIFIED]Onset: 60-82-7877BetwmxqyVdaka nervous system disorders (1 source)Paresthesia of skin; Translations: [PARESTHESIA OF SKIN]Onset: 98-05-0020MfewebyiBysjl skin disorders (1 source)Localized swelling, mass and lump, unspecified; Translations: [Localized mass]Onset: 17-20-1554QkpijttyHbxcpnnj codes; unclassified (1 source)History of exposure to hazardous bodily fluids; Translations: [Personal history of contact with and(suspected) exposure to potentially hazardous body fluids]Onset: 47-45-5124QivsinnnMfigqaam codes; unclassified (1 source)Flushing; Translations: [Flushing]Onset: 27-58-5082Qiancigw Unclassified (2 sources)Acquired absence of both cervix and uterus; Translations: [Acquired absence of both cervix and uterus]Onset: 03-46-1979WaziougwOuvevbsctdse (1 source)Vaginal yeast infection B37.31Unclassified (1 source)Suspected COVID-19 virus infection Z20.822Viral infection (1 source)COVID-19 Results Test NameValueInterpretationReference RangeFacilitySjogrens syndrome-A extractable nuclear antibodyon 36-45-2617Prsbymkn syndrome-A extractable nuclear Ab IA Qn (S)<1.0 NEG<1.0 NEG [facility] HealthcareFASTING:NO FASTING: NOQUESTPerforming Organization Information Site ID: QPT Name: [facility] Address: [address] [place] [address] Director: Tigre Ram [facility]No Panel Informationon 81-34-0942Naxgodgvzw Organization Information Site ID: QPT Name: [facility] Address: [address] [place] [address] Director: Tigre Ram MDWashington Regional Medical CenterT3on 91-26-2366A0 [Mass/Vol]114 ng/dL76 - 181 ng/dLRusk Rehabilitation CenterT4, free 50-39-5618Diyb T4 [Mass/Vol]1 ng/dL0.8 - 1.8 ng/dLRusk Rehabilitation CenterTSn 28-50-6281NRD Qn1.59 m[IU]/LmIU/LNOMS HealthcareComment on above:Reference Range > or = 20 Years 0.40-4.50 Ranges First trimester 0.26-2.66 Second trimester 0.55-2.73 Third trimester 0.43-2.91 XR chest 2V*on 66-59-4313HL chest 2V*[facility] Main [address] [address] XRay Report Signed Patient: Celi Madrid MR#: [id number] : 1985 Acct:[id number] Age/Sex: 39 / F ADM Date: 10/11/24 Loc: XDUCLY Room: Type: [facility] CLI Attending Dr: Aleida [...] Jarrell Harp M.D.10/11/2024 12:51 PM Dictation Location: [place] [address] Transcribed By: [facility] 10/11/24 1251 Dictated By: Jarrell Harp DO 10/11/24 1248 Signed By: 10/11/24 [facility] GroupTB VITAMIN D 25 OHon 09-17-2024 VITAMIN D19 ng/mLNOMS HealthcareComment on above:<20 ng/mL Vit D deficient 20-<30 ng/mL Vit D insufficient 30-100 ng/mL Vit D sufficient >100 ng/mL Potential Toxicity CLINISYNCNOMS Healthcare head/brain wo/w conon 87-84-0573ZJ head/brain wo/w [facility] [place] [place] [address] MRI Report Signed Patient: Celi Madrid MR#: [id number] : 1985 Acct:[id number] Age/Sex: 38 / F ADM Date: 03/10/24 Loc: MR Room: Type: [facility] CLI Attending Dr: Efrain Jean Baptiste MD Copies to: Efrain Jean Baptiste MD Ordering Provider: Efrain Jean Baptiste MD Date of Service: 03/10/24 MR/MR head/brain wo/w con: [id number], [id number] MRI of the brain with and without [...] Izaguirre Jr., D.ONaman03/11/2024 9:41 AM Dictation Location: [place] [address] Transcribed By: [facility] 03/11/24 0941 Dictated By: Bran Izaguirre Jr, DO 03/11/24 0938 Signed By: 03/11/24 0941[facility] Phys[facility] GroupLon [id number]: [id number] Received: 03/05/24 Status: SOUT Req Num: [id number] Spec Type: Surgical Subm Dr: Umberto Jung MD Tissues: A BREAST CORE NO CALCS (RT BREAST 9:00) Procedures: HE/4, Gross/Micro L4 Age/ Patient Sex Location Account Attending Physician Celi Madrid 38/F LABELL [id number] Umberto Jung MD SPEC NUM: [id number] RECD: 03/05/24 STATUS: SOUT REQ NUM: [id number] LIS: 03/04/24- SUBM DR: Umberto Jung MD [...] at gross: 03/05/2024 at 1441 CPT Codes 54080 Specimen: [id number] Received: 03/05/24 Status: SUSAN [place] Num: [id number] Spec Type: Surgical Subm Dr: Umberto Jung MD Tissues: A BREAST CORE NO CALCS (RT BREAST 9:00) Procedures: , Gross/Micro L4 Patient: Celi Madrid [id number] (Continued) Signed (signature on file) Diana Lang MD 03/08/[address] [place] [address] Physician GroupNo Panel InformationOrdered By: Luisa Mckeon on [id number] Strep (POC)[facility]healthCOVID/FLU/RSV RT-PCRon 24-89-5720TFZF-CoV-2 (COVID-19) RNA ROXANA+probe Ql (Unsp spec)Negative [facility] [employer] ([place] Other COVID/FLU/RSV RT-PCRNegativeFargo [employer] Other COVID/FLU/RSV RT-PCRPositiveFargo [employer] Other COVID Quick Testingon 79-03-1259NghmoyZhjmbbqsBytax [employer] Other COVID/FLU/RSV RT-PCRon 77-94-6315OBLJ-CoV-2 (COVID-19) RNA ROXANA+probe Ql (Unsp spec)PositiveNosoutheast missouri community treatment center [employer] Other COVID/FLU/RSV RT-PCRNegativeSaunders [employer] Other CBC AUTO DIFFon 09-00-1666IPUF #0.0 103/ulNormal 0.0-0.1[facility] CincinnatiComment on above:Performed By: #### CMP, LIPID #### [facility] [address] [place] [address] Dr. Sd JarrettBasophils/100 WBC (Bld)0.5 %Normal0.2-2.0The [facility] Comment on above:Performed By: #### CMP, LIPID #### [facility] [address] [place] [address] Dr. Sd Stevens #0.1 103/ulNormal0.0-0.7The [facility] HospitalComment on above: Performed By: #### CMP, LIPID #### [facility] [address] [place] [address] Dr. Sd Lanosinophils/100 WBC (Bld)1.3 %Normal0.9-7.0The [facility] Comment on above:Performed By: #### CMP, LIPID #### [facility] [address] [place] [address] Dr. Sd Hothrocyte distribution width (RBC) [Ratio]12.5 %Zfuqnn25.0-15.0 The [facility] HospitalComment on above:Performed By: #### CMP, LIPID #### [facility] [address] [place] [address] Dr. Sd JarrettHematocrit (Bld) [Volume fraction]40.3 %Gcjvja53.0-48.0The [facility] HospitalComment on above:Performed By: #### CMP, LIPID #### [facility] [address] [place] [address] Dr. Sd JarrettHemoglobin (Bld) [Mass/Vol]12.8 g/lUJxfprq14.0-16.0The [facility] HospitalComment on above:Performed By: #### CMP, LIPID #### [facility] [address] [place] [address] Dr. Sd Doss #0.03 10e3/ulNormal0.00-0.03The [facility] HospitalComment on above:Performed By: #### CMP, LIPID #### [facility] [address] [place] [address] Dr. Sd Doss %0.3 %Normal0.0-0.5The [facility] HospitalComment on above: Performed By: #### CMP, LIPID #### [facility] [address] [place] [address] Dr. Sd Rao #2.3 103/ulNormal1.2-3.8The [facility] HospitalComment on above:Performed By: #### CMP, LIPID #### [facility] [address] [place] [address] Dr. Sd Hillhocytes/100 WBC (Bld)26.7 %Xtyxhk34.5-60.0The [facility] HospitalComment on above:Performed By: #### CMP, LIPID #### [facility] [address] [place] [address] Dr. Sd AlexanderUAL DIFF REQNONormalThe [facility] HospitalComment on above: Performed By: #### CMP, LIPID #### [facility] [address] [place] [address] Dr. Sd Camarillo (RBC) [Entitic mass]29.3 bdRfnvbv70.7-34.0The [facility] HospitalComment on above:Performed By: #### CMP, LIPID #### [facility] [address] [place] [address] Dr. Sd Camarillo (RBC) [Mass/Vol]31.8 g/qPOqxwgy95.9-35.2The [facility] HospitalComment on above:Performed By: #### CMP, LIPID #### [facility] [address] [place] [address] Dr. Sd Camarillo (RBC) [Entitic vol]92.2 pWDyptqo40.0-99.0The [facility] HospitalComment on above:Performed By: #### CMP, LIPID #### [facility] [address] [place] [address] Dr. Sd De La Torre #0.5 103/ulNormal0.3-0.8The [facility] HospitalComment on above:Performed By: #### CMP, LIPID #### [facility] [address] [address] [address] Sd Urrutiaocytes/100 WBC (Bld)5.8 %Normal1.7-12.0The [facility] Comment on above:Performed By: #### CMP, LIPID #### [facility] [address] [address] [address] Sd LouisUT #5.6 103/ulNormal1.4-6.5The [facility] HospitalComment on above:Performed By: #### CMP, LIPID #### [facility] [address] [place] [address] Dr. Sd Louisutrophils/100 WBC (Bld)65.4 %Spfkbg31.0-75.0The [facility] HospitalComment on above:Performed By: #### CMP, LIPID #### [facility] [address] [place] [address] Dr. Sd JarrettPlatelet mean volume (Bld) [Entitic vol]9.9 fLNormal9.5-13.5The [facility] HospitalComment on above:Performed By: #### CMP, LIPID #### [facility] [address] [place] [address] Dr. Sd JarrettPLT315 103/nuBrgiwh450-705Nyn [facility] HospitalComment on above: Performed By: #### CMP, LIPID #### [facility] [address] [place] [address] Dr. Sd JarrettRBC4.37 106/ulNormal4.20-5.40The [facility] HospitalComment on above:Performed By: #### CMP, LIPID #### [facility] [address] [place] [address] Dr. Sd JarrettWBC8.6 103/ulNormal4.0-11.0The [facility] on above: Performed By: #### CMP, LIPID #### [facility] [address] [place] [address] Dr. Sd JarrettLIPID PROFILEon 25-28-3632ZCQE-HDL RATIO NORMSEE [facility] HospitalComment on above:Result Comment: 3.3 - 4.4 LOW RISK 4.4 - 7.1 AVERAGE RISK 7.1 - 11.0 MODERATE RISK >11.0 HIGH RISKPerformed By: #### CMP, LIPID #### [facility] [address] [address] [address] Sd JarrettCholesterol [Mass/Vol]294 mg/dLCritically high<=200The [facility] HospitalComment on above:Performed By: #### CMP, LIPID #### [facility] [address] [place] [address] Dr. Sd JarrettCholesterol in HDL [Mass/Vol]64 mg/dLDelaware County Hospital Comment on above:Performed By: #### CMP, LIPID #### [facility] [address] [place] [address] Dr. Sd JarrettCholesterol in LDL [Mass/Vol]192.4 mg/dLDelaware County HospitalComment on above:Performed By: #### CMP, LIPID #### [facility] [address] [place] [address] Dr. Sd Ramirezesterlindsey.total/Cholesterol in HDL [Mass ratio]4.6 {ratio} NormalThe [facility] HospitalCommunson healthcare [facility] on above:Performed By: #### CMP, LIPID #### [facility] [address] [place] [address] Dr. Sd JarrettHDL NORMAL> or = 60 mg/dl - LOW CARDIOVASCULAR RISK <40 mg/dl - HIGH CARDIOVASCULAR RISKDelaware County HospitalComment on above:Performed By: #### CMP, LIPID #### [facility] [address] [place] [address] Dr. Sd JarrettLDL CALC NORMALSEE BELOWDelaware County HospitalComment on above:Result Comment: <100 mg/dl OPTIMAL 100 - 129 mg/dl NEAR OR ABOVE OPTIMAL 130 - 159 mg/dl BORDERLINE HIGH 160 - 189 mg/dl HIGH >190 mg/dl VERY HIGH Performed By: #### CMP, LIPID #### [facility] [address] [place] [address] Dr. Sd JarrettTriglyceride [Mass/Vol]188 mg/dLCritically high<=150The [facility] HospitalComment on above:Performed By: #### CMP, LIPID #### [facility] [address] [place] [address] Dr. Sd SantosLDL CALC37.6 mg/dLNormalThe [facility] HospitalComment on above: Performed By: #### CMP, LIPID #### [facility] [address] [place] [address] Dr. Sd JarrettPROF 14(COMP METB)on 50-03-7328Hzrsnpw [Mass/Vol]3.4 g/dL Critically low3.5-5.0The [facility] HospitalComment on above:Performed By: #### CMP, LIPID #### [facility] [address] [place] [address] Dr. Sd JarrettAlbumin/Globulin [Mass ratio]0.9 {ratio}NormalThe [facility] HospitalComment on above:Performed By: #### CMP, LIPID #### [facility] [address] [place] [address] Dr. Sd Duque [Catalytic activity/Vol]69 U/OKrjumc86-943Avf [facility] HospitalComment on above:Performed By: #### CMP, LIPID #### [facility] [address] [place] [address] Dr. Sd Bhagat [Catalytic activity/Vol]32 U/LNormal9-52The [facility] Comment on above:Performed By: #### CMP, LIPID #### [facility] [address] [place] [address] Dr. Sd John gap [Moles/Vol]9.4 mmol/LNormalThe [facility] HospitalComment on above:Performed By: #### CMP, LIPID #### [facility] [address] [place] [address] Dr. Sd Rocha [Catalytic activity/Vol]16 U/BDwdfpr08-12Lym [facility] HospitalComment on above:Performed By: #### CMP, LIPID #### [facility] [address] [place] [address] Dr. Yilan ChangBilirubin [Mass/Vol]0.2 mg/dLNormal0.2-1.3The [facility] Comment on above:Performed By: #### CMP, LIPID #### [facility] [address] [place] [address] Dr. Sd JarrettCalcium [Mass/Vol]8.9 mg/dLNormal8.4-10.2The [facility] Comment on above:Performed By: #### CMP, LIPID #### [facility] [address] [place] [address] Dr. Sd JarrettChloride [Moles/Vol]100 mmol/VGdsddi30-933Scm [facility] Comment on above:Performed By: #### CMP, LIPID #### [facility] [address] [place] [address] Dr. Sd JarrettCO2 [Moles/Vol]30.5 mmol/LCritically high22.0-30.0The [facility] HospitalComment on above:Performed By: #### CMP, LIPID #### [facility] [address] [place] [address] Dr. Sd JarrettCreatinine [Mass/Vol]0.60 mg/dLNormal0.52-1.04The [facility] HospitalComment on above:Performed By: #### CMP, LIPID #### [facility] [address] [place] [address] Dr. Sd LanGFR-AF CITIZEN [place]>60Normal>=60The [facility] HospitalComment on above:Performed By: #### CMP, LIPID #### [facility] [address] [place] [address] Dr. Sd LanGFR-NON AF CITIZEN [place]>60Normal>=60The [facility] HospitalComment on above:Performed By: #### CMP, LIPID #### [facility] [address] [place] [address] Dr. Sd JarrettGlobulin (S) [Mass/Vol]4.0 g/dLNormalThe [facility] HospitalComment on above:Performed By: #### CMP, LIPID #### [facility] [address] [place] [address] Dr. Sd JarrettGlucose [Mass/Vol]76 mg/yUYrepyw50-475Fcx [facility] Comment on above:Performed By: #### CMP, LIPID #### [facility] [address] [address] [address] Sd JarrettPotassium [Moles/Vol]3.9 mmol/LNormal3.4-5.0The [facility] Comment on above:Performed By: #### CMP, LIPID #### [facility] [address] [address] [address] Sd JarrettProtein [Mass/Vol]7.4 g/dLNormal6.1-8.2The [facility] Comment on above:Performed By: #### CMP, LIPID #### [facility] [address] [place] [address] Dr. Sd JarrettSodium [Moles/Vol]136 mmol/LCritically rct366-973Ody [facility] HospitalComment on above:Performed By: #### CMP, LIPID #### [facility] [address] [place] [address] Dr. Sd JarrettUrea nitrogen [Mass/Vol]10.0 mg/dLNormal7.0-17.0The [facility] HospitalComment on above:Performed By: #### CMP, LIPID #### [facility] [address] [place] [address] Dr. Sd JarrettUrea nitrogen/Creatinine [Mass ratio]16.7 mg/mgNormalThe [facility] HospitalComment on above:Performed By: #### CMP, LIPID #### [facility] [address] [place] [address] Dr. Sd JarrettXR FOOT LIAM MIN 3 VIEWSon 74-13-7056HH FOOT LIAM MIN 3 VIEWS EXAMINATION: XR [...] Electronically authenticated by: UMBERTO JUNG Date: 2021-07-05 14:12No[address] HospitalXR FOOT LIAM MIN 3 VIEWSon 21-81-2948CK FOOT LIAM MIN 3 VIEWS EXAM: XR [...] Electronically authenticated by: JOEL AYALA Date: 2021-06-12 15:05No[address] [address] [facility] HospitalXR FOOT LIAM MIN 3 VIEWSon 35-58-0488ER FOOT LIAM MIN 3 VIEWS EXAMINATION: XR [...] Electronically authenticated by: UMBERTO JUNG Date: 2021-05-23 08:04[facility] AUTO DIFFon 81-21-6708XIGT #0.0 103/ulNormal0.0-0.1The [facility] HospitalComment on above:Performed By: #### CBC #### [facility] [address], [place] [address] Woody KarenBasophils/100 WBC (Bld)0.4 %Normal0.2-2.0The [facility] Comment on above:Performed By: #### CBC #### [facility] [address] [address] Woody KarenEO #0.1 103/ulNormal0.0-0.7The [facility] HospitalComment on above: Performed By: #### CBC #### [facility] [address] [place] [address] Woody KarenEosinophils/100 WBC (Bld)1.4 %Normal0.9-7.0The [facility] Comment on above:Performed By: #### CBC #### [facility] [address] [place] [address] Woody KarenErythrocyte distribution width (RBC) [Ratio]12.4 %Uahhck33.0-15.0The [place] HospitalComment on above:Performed By: #### CBC #### [facility] [address] [place] [address] Woody KarenHematocrit (Bld) [Volume fraction]40.1 %Gecedv27.0-48.0The [facility] HospitalComment on above:Performed By: #### CBC #### [facility] [address] [place] [address] Woody KarenHemoglobin (Bld) [Mass/Vol]13.2 g/nXBoeuht72.0-16.0The [facility] HospitalComment on above:Performed By: #### CBC #### [facility] [address] [place] [address] Woody KarenIG #0.03 10e3/ulNormal0.00-0.03The [facility] HospitalComment on above:Performed By: #### CBC #### [facility] [address] [place] [address] Woody KarenIG %0.4 %Normal0.0-0.5The [facility] HospitalComment on above: Performed By: #### CBC #### [facility] [address] [place] [address] Woody KarenLYMPH #2.1 103/ulNormal1.2-3.8The [facility] HospitalComment on above: Performed By: #### CBC #### [facility] [address] [place] [address] Woody KarenLymphocytes/100 WBC (Bld)29.1 %Ozqcht71.5-60.0The [facility] Comment on above:Performed By: #### CBC #### [facility] [address] [place] [address] Woody KarenMANUAL DIFF REQNONormalThe [facility] HospitalComment on above: Performed By: #### CBC #### [facility] [address] [place] [address] Woody KarenMCH (RBC) [Entitic mass]29.5 tqWydmbz18.7-34.0[facility] Comment on above:Performed By: #### CBC #### [facility] [address] [place] [address] Woody KarenMCHC (RBC) [Mass/Vol]32.9 g/jKRfqfhe54.9-35.2[facility] Comment on above:Performed By: #### CBC #### [facility] [address] [place] [address] Woody KarenMCV (RBC) [Entitic vol]89.7 iKXeamzr27.0-99.0The [facility] Comment on above:Performed By: #### CBC #### [facility] [address] [place] [address] Woody KarenMONO #0.4 103/ulNormal0.3-0.8The [facility] HospitalComment on above: Performed By: #### CBC #### [facility] [address] [place] [address] Woody KarenMonocytes/100 WBC (Bld)5.6 %Normal1.7-12.0[facility] Comment on above:Performed By: #### CBC #### [facility] [address] [place] [address] Woody KarenNEUT #4.6 103/ulNormal1.4-6.5The [facility] HospitalComment on above: Performed By: #### CBC #### [facility] [address] [place] [address] Woody KarenNeutrophils/100 WBC (Bld)63.1 %Uijbmx41.0-75.0The [facility] Comment on above:Performed By: #### CBC #### [facility] [address] [place] [address] Woody DuenasPlatelet mean volume (Bld) [Entitic vol]9.3 fLCritically low9.5-13.5 The [place] HospitalComment on above:Performed By: #### CBC #### [facility] [address] [place] [address] Woody ZxtjoUFF011 103/tzLlkwel645-391Qki [facility] HospitalComment on above: Performed By: #### CBC #### [facility] [address] [place] [address] Woody KarenRBC4.47 106/ulNormal4.20-5.40The [place] HospitalComment on above: Performed By: #### CBC #### [facility] [address] [place] [address] Woody MccloudenWBC7.3 103/ulNormal4.0-11.0The [place] HospitalComment on above: Performed By: #### CBC #### [facility] [address] [place] [address] Woody KarenFERRITINon 32-68-7580Blutmtyw [Mass/Vol]75.0 ng/mLNormal6.2-137.0The [facility] HospitalComment on above:Performed By: #### CMP, LIPID #### [facility] [address] [place] [address] Dr. Sd JarrettRENAL FUNCTION PANELon 57-44-4872Aockymz [Mass/Vol]3.4 g/dL Critically low3.5-5.0The [facility] HospitalComment on above:Performed By: #### RENAL ####[facility] [address] [place], [place] [address]Gerken KarenCalcium [Mass/Vol]8.9 mg/dLNormal8.4-10.2The [facility] Comment on above:Performed By: #### RENAL ####[facility] [address] [place] [address]Photpz KarenChloride [Moles/Vol]105 mmol/L Uvfojj58-028Akk [facility] HospitalCommunson [facility] on above:Performed By: #### RENAL ####[facility] [address] [place] [address]Ofspmg KarenCO2 [Moles/Vol]27.6 mmol/AXngmjx52.0-30.0The [facility] HospitalComment on above:Performed By: #### RENAL ####[facility] [address] [place] [address]Olqjku KarenCreatinine [Mass/Vol]0.64 mg/dLNormal 0.52-1.04The [facility] HospitalCommun[facility] on above:Performed By: #### RENAL ####[facility] [address] [place] [address]Qbkjle KarenEGFR-AF CITIZEN OF [place]>60Normal>=60The [facility] HospitalCommun[facility] on above: Performed By: #### RENAL ####[facility] [address] [place] [address]Cdqvya KarenEGFR-NON AF CITIZEN OF [place]>60Normal>=60The [facility] HospitalCommun[facility] on above:Performed By: #### RENAL ####[facility] [address] [place] [address]Bjdtsh KarenGlucose [Mass/Vol]62 mg/dLCritically tvg61-339Qxt [facility] HospitalCommun[facility] on above: Performed By: #### RENAL ####[facility] [address] [place] [address]Dohnoy KarenPhosphate [Mass/Vol]2.4 mg/dLCritically low2.5-4.5The [facility] HospitalCommun[facility] on above:Performed By: #### RENAL ####[facility] [address] [place], [place] [address]Gerken KarenPotassium [Moles/Vol]4.1 mmol/LNormal3.4-5.0The [facility] HospitalCommun[facility] on above:Performed By: #### RENAL ####[facility] [address] KarenSodium [Moles/Vol]141 mmol/YGqnami890-903 The [facility] HospitalComment on above:Performed By: #### RENAL ####[facility] [address] [place] [address] KarenUrea nitrogen [Mass/Vol]12.0 mg/dLNormal7.0-17.0The [facility] HospitalComment on above:Performed By: #### RENAL ####[facility] [address] [place] [address] KarenUA RANDOM W/MICROSCOPICon 05-18-2021 BACTERIASMALLAbnormalNONE SEENThe [facility] HospitalCommun[facility] on above:Performed By: #### UAMIC ####[facility] [address] [place] [address] KarenBilirubin Ql (U)NegativeNormalNEGATIVEThe [facility] HospitalComment on above:Performed By: #### UAMIC ####[facility] Wiheqfnrjc[address] [place], [place] [address]Gerken KarenCASTNONE SEEN NormalNONE SEENThe [facility] HospitalCommunson healthcare [facility] hospital on above:Performed By: #### UAMIC ####[facility] Cifpmkkely[address] [place] [address] KarenClarity (U)CLEARNormalCLEARThe [facility] HospitalCommunson healthcare [facility] on above:Performed By: #### UAMIC ####[facility] Kwatzeuxnn[address] [place], [place] [address]Gerken KarenColor (U)YELLOWNormalYELLOWThe [facility] HospitalCommunson healthcare [facility] on above:Performed By: #### UAMIC ####[facility] Benjgaltoc[address] [place], [place] [address]Gerken KarenCrystals LM Nom (Urine sed)NONE SEENNormal NONE SEENThe [facility] HospitalCommunson healthcare [facility] on above:Performed By: #### UAMIC ####[facility] Bpxtphxbkk[address] [place], [place] [address]Gerken KarenEpithelial cells LM Ql (Urine sed)MODERATEAbnormalNONE SEEN /RAREThe [facility] HospitalComment on above:Performed By: #### UAMIC ####[facility] N[address] [place] [address]Gerken KarenGlucose Ql (U) NegativeNormalNEGATIVESelect Medical Specialty Hospital - CincinnatiComment on above:Performed By: #### UAMIC ####[facility] Xcqmuqgcpu5157 [address] KarenHemoglobin Ql (U)MODERATEAbnormalNEGATIVESelect Medical [facility]ty [facility] [place] Comment on above:Performed By: #### UAMIC ####[facility] Ijabborbik[address] [place] [address]Gerken KarenKetones Ql (U)NegativeNormal NEGATIVESelect Medical Specialty Hospital - CincinnatiComment on above:Performed By: #### UAMIC ####[facility] Qb[address]iruv[address] [place] [address] KarenLEUKOCYTESNegativeNormalNEGATIVESelect Medical Specialty Hospital - CincinnatiComment on above: Performed By: #### UAMIC ####[facility] Ibrbkprlis2211 [address] KarenMUCOUSMODERATEAbnormalNONE SEENSelect Medical Specialty Hospital - CincinnatiComment on above:Performed By: #### UAMIC ####[facility] Tybqcxybpn9903 [address] KarenNitrite Ql (U) NegativeNormalNEGATIVESelect Medical Specialty Hospital - CincinnatiComment on above:Performed By: #### UAMIC ####[facility] Hcbdptjtrk5358 [address] KarenpH (U)5.5 [pH]Normal5-9Select [facility] Hospital - CincinnatiComment on above: Performed By: #### UAMIC ####[facility] Z[address] [place] [address] XekhbGKD2-8Szgeir8-7Gbr [facility] Comment on above:Performed By: #### UAMIC ####[facility] [address] [place] [address] KarenSPEC GRAVITY>=1.030Abnormal 1.005-<=1.025[facility] - CincinnatiComment on above:Performed By: #### UAMIC ####[facility] Xkrozigzgn[address] [place] [address] KarenUA YOADRKL118 mg/dlAbnormalNEGATIVE/ TRACEThe [facility] HospitalComment on above:Performed By: #### UAMIC ####[facility] Bhtkpdvgbg[address] [place] [address] KarenUrobilinogen Qn (U)0.2 {Ratna'U}/dL Normal0.2 - 1.0The [facility] HospitalComment on above:Performed By: #### UAMIC ####[facility] Momdkqrdvr[address] [place] [address] KarenWBC0-2AbnormalNONE SEENThe [facility] HospitalComment on above:Performed By: #### UAMIC ####[facility] Eyduccrhfz[address] [place] [address] KarenURINE T PROTEIN CREAT RATIOon 72-60-6431Lfeebsu (U) [Mass/Vol] 98.3 mg/dLCritically high<=12.0[facility] - CincinnatiComment on above:Performed By: #### CMP, LIPID #### [facility] [address] [place] [address] Dr. Sd Gonzalez PROT CREAT RAT0.41NormalThe [facility] HospitalComment on above: Performed By: #### CMP, LIPID #### [facility] [address] [place] [address] Dr. Sd Baez AZMKP823.76 mg/pFFtsqvz08.00-300.00[facility] Comment on above:Performed By: #### CMP, LIPID #### [facility] [address] [place] [address] Dr. Sd JarrettQUANTIFERON TB GOLD PLUS (NON-INC)on 50-99-2239EcpdsluTlbhjfpuck performed.NormalSelect Medical Specialty Hospital - CincinnatiComment on above:Performed By: #### QNTTBG ####[facility] Mrokeoainz[address] [place] [address] Elizabeth Youngstown HospitalCommunson healthcare grayling hospital on above:Result Comment: The QuantiFERON-TB Gold Plus result is determined by subtracting the Nil value from either TB antigen (Ag) tube. The mitogen tube serves as a control for the test.Performed By: #### QNTTBG ####[facility] Cdjheksvlv[address] [place] [address] KarenMitogen Value >10.00NoMedina Hospital on above:Performed By: #### QNTTBG ####[facility] Ueywduzbws[address] [place] [address] KarenNill Value0.00 IU/mLNormalMercy Memorial Hospital on above:Performed By: #### QNTTBG ####[facility] Fzfk[address]awv[address] [place] [address] KarenQuantiferon Gold PlusNegativeNormalNegativeMercy Memorial Hospital on above:Result Comment: Chemiluminescence immunoassay methodologyPerformed By: #### QNTTBG ####[facility] Pg[address]bydwr[address] [place] [address] KarenTB1 Ag Value0.00 IU/mLNormalMercy Memorial Hospital on above:Performed By: #### QNTTBG ####[facility] [address]kbj[address] [place] [address] KarenTB2 Ag Value0.00 IU/mLNormalMercy Memorial Hospital on above:Performed By: #### QNTTBG ####[facility] Vuyyyaovpb[address] [place] [address] KarenHEPATITIS B SURFACE ANTIBODY, QUANTon 01-23-2144Bbzgqxnkr B Surf AB Udrjr527.8 mIU/mLNormalImmunity>9.9[facility] on above:Result Comment: Status of Immunity Anti-HBs Level Inconsistent with Immunity 0.0 - 9.9 Consistent with Immunity >9.9Performed By: #### HEPBSRF ####[facility] T[address] [place], [place] [address]Payxwe KarenMMR IMMUNITYon 22-88-2610Clyyx Abs, IgG<9.0Critically lowImmune >10.9The [facility] Comment on above:Result Comment: Negative <9.0 Equivocal 9.0 - 10.9 Positive >10.9 A positive result generally indicates past exposure to Mumps virus or previous vaccination.Performed By: #### MMRIMMU ####[facility] X[address]soqlwkz[address] [place] [address]Gerken KarenRubella Antibodies, IgG3.59 indexNormalImmune >0.99The [facility] HospitalComment on above:Result Comment: Non-immune <0.90 Equivocal 0.90 - 0.99 Immune >0.99Performed By: #### MMRIMMU ####[facility] Taftqsijpd[address] [place] [address]Gerken KarenRubeola Ab, IxE739.0 AU/mLNormal Immune >16.4The [facility] HospitalComment on above:Result Comment: Negative <13.5 Equivocal 13.5 - 16.4 Positive >16.4 Presence of antibodies to Rubeola is presumptive evidence of immunity except when acute infection is suspected.Performed By: #### MMRIMMU ####[facility] Zurpmgsuxa[address] [place] [address]Gerken KarenVARICELLA IGG ABon 48-60-2827Akfcknzhq Zoster EiZ035 indexNormalImmune >165 The [facility] HospitalComment on above:Result Comment: Negative <135 Equivocal 135 - 165 Positive >165 A positive result generally indicates exposure to the pathogen or administration of specific immunoglobulins, but it is not indication of active infection or stage of disease.Performed By: #### CMP, LIPID #### [facility] [address], [place] [address] Dr. S[address] JarrettTHYROGLOBULIN ABon 26-35-7710Olzalslstzvyg Antibody<1.0Normal 0.0-0.9The [facility] HospitalComment on above:Result Comment: Thyroglobulin Antibody measured by Jamgo MethodologyPerformed By: #### THYGAB #### [facility] [address] [place] [address] Woody KarenFREE T4on 38-63-6024Uofp T4 [Mass/Vol]0.91 ng/dLNormal0.78-2.19The [facility] HospitalComment on above:Performed By: #### CMP, LIPID #### [facility] [address] [place] [address] [address] Sd Walton 34-13-9383EQA2.710 uIU/mLNormal0.470-4.680The [facility] HospitalComment on above:Performed By: #### TSH #### [facility] [address] [place] [address] Woody KarenTSH RANGESEE BELOWNormalThe [facility] HospitalComment on above:Result Comment: <0.34 UIU/ml HYPERTHYROID 0.34-5.60 UIU/ml EUTHYROID >5.60 UIU/ml HYPOTHYROIDPerformed By: #### TSH #### [facility] [address] [place] [address] Woody KarenMYELIN BASIC PROT CSFon 44-95-5995Hanxon Basic Protein, CSF2.1 ng/mL Normal0.0-3.7The [facility] HospitalComment on above:Performed By: #### MBPCSF ####[facility] Olpkedaahc[address] [place], [place] [address]Gerken KarenIMMUNOGLOBULIN G SYNTHESIS RATE, CSFon 55-46-0683Fcxijyl [Mass/Vol]3.7 g/dL Critically low3.8-4.8The [facility] HospitalComment on above:Performed By: #### IMMUNGC ####[facility] Ecgzoteofz[address] [place], [place] [address]Gerken KarenAlbumin, CSF13 mg/eKHwbppy89-73Amc [facility] HospitalComment on above:Performed By: #### IMMUNGC ####[facility] Berar[address]rmq[address] [place] [address]Gerken KarenIgG, Quant, CSF1.9 mg/dLNormal0.0-8.6The [facility] HospitalComment on above:Performed By: #### IMMUNGC ####[facility] [address]xzqbkqco[address] [place], [place] [address]Irgbri KarenIgG, Syn Rate,CSF-1.5 mg/dayNormal9.9 TO +3.3The [facility] HospitalComment on above: Performed By: #### IMMUNGC ####[facility] [address]hiwexlx87[address] [place], [place] [address]Iwlyib KarenImmunoglobulin G, Qn, Ycqbd233 mg/dLNormal 586-1602The [facility] on above:Performed By: #### IMMUNGC ####[facility] S[address]xd[address] [place], [place] [address]Vycjqt KarenOILGOCLONAL BANDING CSFon 33-13-8626Abodyxynkim BandsCommentNoMedina Hospital on above:Result Comment: Zero (0) oligoclonal bands [...] immunoblotting methodology.Performed By: #### CMP, LIPID #### [facility] [address], [place] [address] Dr. Sd [place] COUNT CSFon 17-66-0351XEU CLARITYCLEARNormalCLEARMercy Memorial Hospital on above:Performed By: #### CCCSF ####[facility] Ngjtudakta[address] [place] [address]Gerken KarenPerformed By: #### CMP, LIPID #### [facility] [address] [place] [address] [address] Sd Fitzgerald COLORCOLORLESSNormalCOLORLESSSelect Medical Specialty Hospital - CincinnatiComment on above:Performed By: #### CCCSF ####[facility] [address]ikjgypxc[address] [place] [address]Gerken KarenPerformed By: #### CMP, LIPID #### [facility] [address] [place] [address] [address] Sd Fitzgerald RBC11 cubic [facility] HospitalComment on above: Performed By: #### CCCSF ####[facility] Qukiqgepmx[address] [place] [address]Gerken KarenCSF RBC1 cubic [facility] HospitalComment on above:Performed By: #### CMP, LIPID #### [facility] [address] [place] [address] [address] Sd Fitzgerald IZEZFO37.0 mLNormalSelect Medical Specialty Hospital - CincinnatiComment on above: Performed By: #### CCCSF ####[facility] Iykztqpccj2256 [address] KarenPerformed By: #### CMP, LIPID #### [facility] [address] [place] [address] [address] dS Fitzgerald WBC0 cubic [facility] HospitalComment on above: Performed By: #### CCCSF ####[facility] Mobchwnelo[address] [place] [address]Gerken KarenPerformed By: #### CMP, LIPID #### [facility] [address] [place] [address] [address] Sd Fitzgerald WBC HEADERREFERENCE RANGE 5-10 WBC/cubic mm = BORDERLINE NormalSelect Medical Specialty Hospital - CincinnatiComment on above:Performed By: #### CCCSF ####[facility] Dltnhptjln[address]00 [address] KarenPerformed By: #### CMP, LIPID #### [facility] [address], [place] [address] Dr. Sd JarrettGLUCOSE CSFon 38-16-9304ZOJTHPP CSF59 mg/yUEwnulc23-30OnrMercy Memorial Hospital on above:Performed By: #### GLUCSF, PROTCSF ####[facility] Yrsjyfhavo[address] KarenLAB TESTINGon 19-91-5078QSQP HEADERSEE SCANNED REPORT IN [facility] on above:Performed By: #### MISC ####[facility] Tvcgemzhgw7879 [address] KarenREV FROM REF LAB 02/16/2021[facility] on above:Performed By: #### MISC ####[facility] Wstbwsrznm9713 [address] KarenSENT TO REF LAB02/16/2021[facility] on above: Performed By: #### MISC ####[facility] Fjagtdetjd3524 [address] KarenRECV HEADERSEE SCANNED REPORT IN [facility] on above:Performed By: #### MISC ####[facility] Awobaztkmi1588 [address] KarenREV FROM REF LAB02/21/2021[facility] on above:Performed By: #### MISC ####[facility] Hymazfkrzp[address] KarenSENT TO REF LAB02/17/2021[facility] on above:Performed By: #### MISC ####[facility] L[address]ozj[address] [place] [address]Gerken KarenPROTEIN CSFon 33-03-0969BTX PROT CSF29 mg/nODjknba03-84Hnz [place] HospitalComment on above:Performed By: #### GLUCSF, PROTCSF ####[facility] [address]jlhvpjmfu16[address] [place], [place] [address]Onzgahanika Pate 75-71-9242TMVVAlbqxg Visit (NEMEFV) CELI MADRID ([id number]) 1985 F Date Time Provider Department 02/13/21 10:00 AM HARDIK GARCIA During your visit today, we recorded the following information about you: Temperature Pulse Blood pressure Weight 97.8 degrees 91/minute 114/75 71.6 kg Height 1.575 m Hardik Garcia MD 02/13/2021 11:20 AM Signed [facility] NEW EVALUATION Referral source: Yelitza Jones MD [address] [place] [phone] PRINCIPAL NEUROLOGIC DIAGNOSIS: Right arm pain, cognitive [...] expected to be with me at the [facility]. Ms. Madrid notes that in 2016, she had a lot of fatigue and was getting sick frequently. She was sent to an transport aide and was given the pneumonia vaccine but [...] She has followed with Dr. Castillo in [place] at the [facility]. He recommended Ocrevus. She has discussed this with her liver doctor and gotten the ok to proceed with it. Dr. Castillo has suggested a lumbar puncture, but that has not been done yet. Prior to the above, she denies any history of episodic neurologic impairment that might be consistent with SR. PAYROLL MANAGER demyelination, such as unilateral visual loss, [...] the arms and legs was intact including rwttu-xq-xamno, rapid-alternating, and fine movements. Sensory examination: Light [...] which included preparing to see the patient, vuuj-bc-tyzv patient care, performing a medically appropriate examination, completing clinical documentation, reviewing records, and counseling/educating the patient/family. Hardik Garcia MD Staff Neurologist [facility] Referring Provider: SELF [200] [...] extremity [M79.601] Order(s):DAVE/ANGIOTENSIN BLD [SQACE] Order #: [id number] FUTURE ANTI BRENT ID [SQENAID] Order #: [id number] FUTURE JASVIR BY IFA WITH REFLEX [SQANAIFR] Order #: [id number] FUTURE FOLATE SERUM [SQSERFOL] Order #: [id number] FUTURE HOMOCYSTEINE [SQHOMCYS] Order #: [id number] FUTURE LYME AB LATE >30 DAYS SYMPTOMS [SQLMLATE] Order #: [id number] FUTURE METHYLMALONIC ACID [SQMMA] Order #: [id number] FUTURE SYPHILIS TOTAL W/REFLEX [SQSYPHTX] Order #: [id number] FUTURE TSH BLD [SQTSH] Order #: [id number] FUTURE COPPER BLOOD [SQCOPPER] Order #: [id number] FUTURE CERULOPLASMIN BLD [SQCERULO] Order #: [id number] FUTURE Prescriptions as of 02/13/2021 Sig: ROSUVASTATIN [...] Encounter Status:Closed by HARDIK GARCIA MD on 02/13/21[facility] PROGRESSon 97-28-2106GJZJJSTZNOQ ID: [id number] Author: Hardik Garcia Service: ? Author Type: Physician Type: Progress Notes Filed: 02/13/2021 11:20 AM Note Text: [facility] NEW EVALUATION Referral source: Yelitza Jones MD [address] [place] [phone] PRINCIPAL NEUROLOGIC DIAGNOSIS: Right arm pain, cognitive [...] expected to be with me at the [facility]. Ms. Madrid notes that in 2016, she had a lot of fatigue and was getting sick frequently. She was sent to an transport aide and was given the pneumonia vaccine but [...] She has followed with Dr. Castillo in [place] at the [facility]. He recommended Ocrevus. She has discussed this with her liver doctor and gotten the ok to proceed with it. Dr. Castillo has suggested a lumbar puncture, but that has not been done yet. Prior to the above, she denies any history of episodic neurologic impairment that might be consistent with SR. PAYROLL MANAGER demyelination, such as unilateral visual loss, [...] the arms and legs was intact including lqfzx-rd-nfbds, rapid-alternating, and fine movements. Sensory examination: Light [...] which included preparing to see the patient, nraj-be-kdgk patient care, performing a medically appropriate examination, completing clinical documentation, reviewing records, and counseling/educating the patient/family. Hardik Garcia MD Staff Neurologist [facility] OUTSIDE CD DICOM IMPORT -NBNRon 13-48-0644IP OUTSIDE CD DICOM IMPORT -NBNRImages were obtained outside of [facility] [id number] Memorial Hospital ClevelandMR OUTSIDE CD DICOM IMPORT -NBNRImages were obtained outside of [facility] [id number] Memorial Hospital ClevelandXR OUTSIDE CD DICOM IMPORT -NBNRon 94-58-6078XR OUTSIDE CD DICOM IMPORT -NBNRImages were obtained outside of [facility] [id number] Clinic Lutheran HospitalJC VIRUS DNA, PCR WHOLE BLOODon 40-33-5274UA Virus DNA,PCR (Whole Blood)NegativeNormalNegativeMercy Health Willard Hospitalment on above:Result Comment: No JCV DNA detected This test was developed and its performance characteristics determined by [employer]. It has not been cleared or approved by the Food and Drug Administration. The FDA has determined that such clearance or approval is not necessary.Performed By: #### JCVPCR ####[facility] Nkg[address] [place] [address] KarenQUANTIFERON TB GOLD PLUS (NON-INC)on 93-22-6177KkkbxlnXmlngnkxoh performed.NormalSelect Medical Specialty Hospital - CincinnatiCommunson healthcare [facility]ling hospital on above:Performed By: #### QNTTBG ####[facility] [address]sekkasxk[address] [place] [address] KarenCriteriaComment NormalMercy Memorial Hospital on above:Result Comment: The QuantiFERON-TB Gold Plus result is determined by subtracting the Nil value from either TB antigen (Ag) tube. The mitogen tube serves as a control for the test.Performed By: #### QNTTBG ####[facility] [address]jxevq[address] [place] [address] KarenMitogen Value >10.00NormalThe [facility] on above:Performed By: #### QNTTBG ####[facility] Frumpcfipy[address] [place] [address] KarenNill Value0.17 IU/mLNormalSelect Medical Specialty Hospital - CincinnatiCommunson healthcare [facility] hospital on above:Performed By: #### QNTTBG ####[facility] Ephbyumpyl[address] [place] [address]Gerken KarenQuantiferon Gold PlusNegativeNormalNegativeSelect Medical Specialty Hospital - CincinnatiComment on above:Performed By: #### QNTTBG ####[facility] Viulydpkmc77[address] [place], [place] [address]Zefcov KarenTB1 Ag Value0.16 IU/mLNormalSelect Medical Specialty Hospital - CincinnatiComment on above:Performed By: #### QNTTBG ####[facility] A[address]apcalxk[address] [place] [address]Gerken KarenTB2 Ag Value0.17 IU/mLNormalSelect Medical Specialty Hospital - CincinnatiComment on above:Performed By: #### QNTTBG ####[facility] [address]yziniwtlp[address] [place], [place] [address]Gerken KarenHEPATITIS PANEL, ACUTEon 84-63-9077QFmXa ScreenNegative NormalNegativeSelect Medical Specialty Hospital - CincinnatiComment on above:Performed By: #### CMP, LIPID #### [facility] [address] [place] [address] Dr. Sd Ngo Ab, IgMNegativeNormalNegativeSelect Medical Specialty Hospital - CincinnatiComment on above:Performed By: #### CMP, LIPID #### [facility] [address] [place] [address] Dr. Sd Michaels Core Ab, IgMNegativeNormalNegPaulding County Hospital Comment on above:Performed By: #### CMP, LIPID #### [facility] [address] [place] [address] Dr. Sd Rosenberg Virus Ab<0.4Qqnvkg1.0-0.9Select [facility] Specialty Hospital - CincinnatiComment on above:Result Comment: Negative: < 0.8 Indeterminate: 0.8 - 0.9 Positive: > 0.9 . The CDC recommends that a positive HCV antibody result be followed up with a HCV Nucleic Acid Amplification test (662031).Performed By: #### CMP, LIPID #### [facility] [address] [place] [address] Dr. Yilan ChangLYME DISEASE AB, TOTAL AND IGM W/WB REFEon 31-38-9983Lstj Disease Ab, Quant, IgM<0.02Vltufx9.00-0.79The [facility] on above:Result Comment: Negative <0.80 Equivocal 0.80 - 1.19 Positive >1.19 . IgM levels may peak at 3-6 weeks post infection, then gradually decline.Performed By: #### CMP, LIPID #### [facility] [address] [place] [address] Dr. Sd Choi IgG/IgM Ab<0.79Pbtoxa4.00-0.90[facility] on above:Result Comment: Negative <0.91 Equivocal 0.91 - 1.09 Positive >1.09Performed By: #### CMP, LIPID #### [facility] [address] [place] [address] Dr. Sd JarrettVARICELLA ZOSTER VIRUS IGM QUANTon 90-45-5086Xxqzccgpz-Zoster Ab, IgM<0.38Upzeyg0.00-0.90The [facility] on above:Result Comment: Negative <0.91 Borderline 0.91 - 1.09 Positive >1.09Performed By: #### VARCIGM ####[facility] [address] [place] [address]Gerken KarenIMMUNOGLOBULIN IGG QUANTITATIVE on 22-52-4639Jdlnopetohoikj G, Qn, Ilsub952 mg/eHCffgtd427-3172Wou [facility] HospitalComment on above:Performed By: #### CMP, LIPID #### [facility] [address] [place] [address] Dr. Sd JarrettIMMUNOGLOBULIN IGM QUANTITATIVEon 34-15-2454Quhzteqnunfvul M, Qn, Wnqnn358 mg/qPQvkqvt00-611Zxp [facility] on above:Performed By: #### CMP, LIPID #### [facility] [address] [place] [address] Dr. Sd JarrettVARICELLA IGG ABon 47-19-4220Vbbqbqgbb Zoster GtV556 indexNormal Immune >165The Norman HospitalComment on above:Result Comment: Negative <135 Equivocal 135 - 165 Positive >165 A positive result generally indicates exposure to the pathogen or administration of specific immunoglobulins, but it is not indication of active infection or stage of disease.Performed By: #### CMP, LIPID #### [facility] [address] [place] [address] Dr. Sd Felix AUTO DIFFon 68-52-6072VQBF #0.0 103/ulNormal0.0-0.1The [facility] HospitalComment on above:Performed By: #### CMP, LIPID #### [facility] [address] [place] [address] Dr. Sd JarrettBasophils/100 WBC (Bld)0.7 %Normal0.2-2.0[facility] Comment on above:Performed By: #### CMP, LIPID #### [facility] [address] [place] [address] Dr. Sd Stevens #0.2 103/ulNormal0.0-0.7The [facility] HospitalComment on above: Performed By: #### CMP, LIPID #### [facility] [address] [place] [address] Dr. Sd Lanosinophils/100 WBC (Bld)4.1 %Normal0.9-7.0[facility] Comment on above:Performed By: #### CMP, LIPID #### [facility] [address] [place] [address] Dr. dS Lanrythrocyte distribution width (RBC) [Ratio]12.8 %Rhqjjz63.0-15.0 The [facility] HospitalComment on above:Performed By: #### CMP, LIPID #### [facility] [address] [place] [address] Dr. Sd JarrettHematocrit (Bld) [Volume fraction]38.1 %Zzrhlw88.0-48.0[facility] - CincinnatiComment on above:Performed By: #### CMP, LIPID #### [facility] [address] [place] [address] Dr. Sd JarrettHemoglobin (Bld) [Mass/Vol]12.3 g/gJRxdnsx52.0-16.0The [facility] HospitalComment on above:Performed By: #### CMP, LIPID #### [facility] [address] [place] [address] Dr. Sd Doss #0.02 10e3/ulNormal0.00-0.03The [facility] HospitalComment on above:Performed By: #### CMP, LIPID #### [facility] [address] [place] [address] Dr. Sd Doss %0.5 %Normal0.0-0.5The [facility] HospitalComment on above: Performed By: #### CMP, LIPID #### [facility] [address] [place] [address] Dr. Sd Rao #1.2 103/ulNormal1.2-3.8The [facility] HospitalComment on above:Performed By: #### CMP, LIPID #### [facility] [address] [place] [address] Dr. Sd Hillhocytes/100 WBC (Bld)26.2 %Vndkli99.5-60.0The [facility] HospitalComment on above:Performed By: #### CMP, LIPID #### [facility] [address] [place] [address] Dr. Sd AlexanderUAL DIFF REQNONormalThe [facility] HospitalComment on above: Performed By: #### CMP, LIPID #### [facility] [address] [place] [address] Dr. Sd Villarreal (RBC) [Entitic mass]29.1 siPeyonj12.7-34.0The [facility] HospitalComment on above:Performed By: #### CMP, LIPID #### [facility] [address] [place] [address] Dr. Sd Donnelly (RBC) [Mass/Vol]32.3 g/fTHsxylm59.9-35.2The [facility] HospitalComment on above:Performed By: #### CMP, LIPID #### [facility] [address] [place] [address] Dr. Sd Basilio (RBC) [Entitic vol]90.3 nFDwsjpu25.0-99.0The [facility] HospitalComment on above:Performed By: #### CMP, LIPID #### [facility] [address] [place] [address] Dr. Sd De La Torre #0.3 103/ulNormal0.3-0.8The [facility] HospitalComment on above:Performed By: #### CMP, LIPID #### [facility] [address] [place] [address] Dr. Sd Urrutiaocytes/100 WBC (Bld)7.2 %Normal1.7-12.0The [facility] Comment on above:Performed By: #### CMP, LIPID #### [facility] [address] [place] [address] Dr. Sd Rose #2.7 103/ulNormal1.4-6.5The [facility] HospitalComment on above:Performed By: #### CMP, LIPID #### [facility] [address] [place] [address] Dr. Sd Louisutrophils/100 WBC (Bld)61.3 %Ztaodd47.0-75.0The [facility] HospitalComment on above:Performed By: #### CMP, LIPID #### [facility] [address] [place] [address] Dr. Sd Ferreira mean volume (Bld) [Entitic vol]9.3 fLCritically low 9.5-13.5The [facility] HospitalComment on above:Performed By: #### CMP, LIPID #### [facility] [address] [place] [address] Dr. Sd JarrettPLT177 103/qiMkinrn259-471Ish [facility] HospitalComment on above: Performed By: #### CMP, LIPID #### [facility] [address] [place] [address] Dr. Sd JarrettRBC4.22 106/ulNormal4.20-5.40The [facility] HospitalComment on above:Performed By: #### CMP, LIPID #### [facility] [address] [place] [address] Dr. Sd JarrettWBC4.4 103/ulNormal4.0-11.0[facility] - CincinnatiComment on above: Performed By: #### CMP, LIPID #### [facility] [address] [place] [address] Dr. Sd JarrettPREG QUANT HCGon 73-03-9316YEC QUANT<1NormalSelect [facility]ty [facility] Comment on above:Performed By: #### CMP, TSH, PREGQNT #### [facility] [address] [place] [address] Woody KarenHCG RANGESEE [facility]wiler Memorial HospitalComment on above:Result Comment: 5-50 0-1 WEEK 40-300 1-2 WEEKS 100-1,000 2-3 WEEKS 500-6,000 3-4 WEEKS 5,000-200,000 1-2 MONTHS 10,000-100,000 2-3 MONTHS 3,000-50,000 2ND TRIMESTER 1,000-50,000 3RD TRIMESTERPerformed By: #### CMP, TSH, PREGQNT #### [facility] [address] [place] [address] Woody KarenPROF 14(COMP METB)on 96-40-7994Usgvthw [Mass/Vol]2.8 g/dLCritically low3.5-5.0[facility] CincinnatiComment on above:Performed By: #### CMP, TSH, PREGQNT #### [facility] [address] [place] [address] Woody KarenAlbumin/Globulin [Mass ratio]0.7 {ratio}NormalSelect Medical Specialty [facility] Comment on above:Performed By: #### CMP, TSH, PREGQNT #### [facility] [address] [place] [address] Woody KarenALP [Catalytic activity/Vol]78 U/FPvhqhc91-898XjwSelect Medical Specialty Hospital [facility] Comment on above:Performed By: #### CMP, TSH, PREGQNT #### [facility] [address] [place] [address] Woody KarenALT [Catalytic activity/Vol]74 U/LCritically high9-52[facility] CincinnatiComment on above:Performed By: #### CMP, TSH, PREGQNT #### [facility] [address] [id number] Woody KarenAnion gap [Moles/Vol]10.8 mmol/LNormalThe [facility] HospitalComment on above:Performed By: #### CMP, TSH, PREGQNT #### [facility] [address] [address] Woody KarenAST [Catalytic activity/Vol]50 U/LCritically kkhq86-12Vwy [facility] HospitalComment on above:Performed By: #### CMP, TSH, PREGQNT #### [facility] [address] [address] Woody KarenBilirubin [Mass/Vol]0.2 mg/dLNormal0.2-1.3TAdena Fayette Medical Center Comment on above:Performed By: #### CMP, TSH, PREGQNT #### [facility] [address] [address] Woody KarenCalcium [Mass/Vol]8.6 mg/dLNormal8.4-10.2[facility] Comment on above:Performed By: #### CMP, TSH, PREGQNT #### [facility] [address] [place] [address] Woody KarenChloride [Moles/Vol]105 mmol/ANtewex89-778Fcb [facility] Comment on above:Performed By: #### CMP, TSH, PREGQNT #### [facility] [address] [place], [place] [address] Woody KarenCO2 [Moles/Vol]28.2 mmol/VEazbyf12.0-30.0[facility] Comment on above:Performed By: #### CMP, TSH, PREGQNT #### [facility] [address] [place] [address] Woody KarenCreatinine [Mass/Vol]0.53 mg/dLNormal0.52-1.04The [facility] Comment on above:Performed By: #### CMP, TSH, PREGQNT #### [facility] [address] [address] Woody KarenEGFR-AF CITIZEN OF [place]>60Normal>=60The [facility] HospitalComment on above: Performed By: #### CMP, TSH, PREGQNT #### [facility] [address] [address] Woody KarenEGFR-NON AF CITIZEN OF [place]>60Normal>=60The [facility] HospitalComment on above:Performed By: #### CMP, TSH, PREGQNT #### [facility] [address] [place] [address] Woody KarenGlobulin (S) [Mass/Vol]3.9 g/dLNormalThe [facility] HospitalCommunson healthcare [facility] on above:Performed By: #### CMP, TSH, PREGQNT #### [facility] [address] [place] [address] Woody KarenGlucose [Mass/Vol]99 mg/yQRntyag80-032Oqg [facility] HospitalComment on above:Performed By: #### CMP, TSH, PREGQNT #### [facility] [address] [place] [address] Woody KarenPotassium [Moles/Vol]4.0 mmol/LNormal3.4-5.0The [facility] Comment on above:Performed By: #### CMP, TSH, PREGQNT #### [facility] [address] [place] [address] Woody KarenProtein [Mass/Vol]6.7 g/dLNormal6.1-8.2The Grant Hospitalment on above:Performed By: #### CMP, TSH, PREGQNT #### [facility] [address] [place] [address] Woody KarenSodium [Moles/Vol]140 mmol/BLglssr624-877Rhi [facility] Comment on above:Performed By: #### CMP, TSH, PREGQNT #### [facility] [address] [place] [address] Woody KarenUrea nitrogen [Mass/Vol]10.0 mg/dLNormal7.0-17.0The [place] HospitalComment on above:Performed By: #### CMP, TSH, PREGQNT #### [facility] [address] [address] Woody DuenasUrea nitrogen/Creatinine [Mass ratio]18.9 mg/mgDelaware County HospitalComment on above:Performed By: #### CMP, TSH, PREGQNT #### [facility] [address] [place] [address] Woody ShuklaHon 84-11-8109LZG4.598 uIU/mLNormal0.470-4.680The [place] HospitalComment on above:Performed By: #### CMP, TSH, PREGQNT #### [facility] [address] [place] [address] Woody ShuklaH RANGESEE BELOWNoMercy Health St. Elizabeth Youngstown HospitalComment on above:Result Comment: <0.34 UIU/ml HYPERTHYROID 0.34-5.60 UIU/ml EUTHYROID >5.60 UIU/ml HYPOTHYROIDPerformed By: #### CMP, TSH, PREGQNT #### [facility] [address] [place] [address] Woody DuenasVITAMIN B12on 47-03-7306Pyoapxzvt (Vitamin B12) [Mass/Vol]538.0 pg/hGIdqwsm411.0-931.0[facility] - CincinnatiComment on above:Performed By: #### VITB12 ####[facility] [address] [address]Woody DuenasMR OUTSIDE CD DICOM IMPORT -NBNRon 50-51-5223XT OUTSIDE CD DICOM IMPORT -NBNRImages were obtained outside of [facility] [id number] HospitalRS-CoV2 ANTIBODIES (IgM, IgG, IgA)on 48-83-7251GGWQ-CoV-2 (COVID-19) RNA ROXANA+probe Ql (Unsp spec) NegativeNormalNegativeThe [facility] HospitalComment on above:Result Comment: This sample does not contain detectable SARS-CoV-2 antibodies. This negative result does not rule out SARS-CoV-2 infection. Correlation with epidemiologic risk factors and other clinical and laboratory findings is recommended. Serologic results should not be used as the sole basis to diagnose or exclude recent SARS-CoV-2 infection.Performed By: #### CVDABS ####[facility] [address] [place], [place] [address]Yoljpu KarenCovid-19 PCR (CVDTBH)on 95-37-5645URO StatementSEE BELOWNormal [facility] on above:Result Comment: This test is not yet approved or cleared by the [place] FDA. When there are no FDA-approved or cleared tests available, and other criteria are met, FDA can make tests available under an emergency access mechanism called an Emergency Use Authorization (EUA). The EUA for this test is supported by the [employer] Techn[employer] of Health and Human Service?s (HHS?s) declaration [...] symptoms consistent with SARS-CoV-2.Performed By: #### CVDTBH ####[facility] [address] [place], [place] [address]Rbttcr TygomZKTN-EiZ-7 (COVID-19) RNA ROXANA+probe Ql (Unsp spec)Not detectedNormalNOT DETECTEDThe [facility] on above:Result Comment: This test is not yet approved or cleared by the [place] FDA. When there are no FDA-approved or cleared tests available, and other criteria are met, FDA can make tests available under an emergency access mechanism called an Emergency Use Authorization (EUA). The EUA for this test is supported by the [place] of Health and Human Service's (HHS's) declaration [...] longer be used). Performed By: #### CVDTBH ####[facility] [address] [place], [place] [address]Drrbze KarenMRI KNEE RT WO CONon [id number] KNEE RT WO CONEXAMINATION: MRI KNEE RT [...] Electronically authenticated by: DIANA MONROY Date: 2020-09-11 14:09Del[facility] County HospitalCult,Bloodon 50-74-2179Ncis,BloodSpecimen Description .BLOOD Special Requests R ARM 6 ML Culture NO GROWTH 6 DAYS Report Status FINAL 11/05/2017[facility] CincinnatiComment on above:Performed By: #### BC ####[address] [place] [address] Cult,BloodSpecimen Description .BLOOD Special Requests LT HAND 5ML Culture NO GROWTH 6 DAYS Report Status FINAL 11/05/2017NormalMercy Port Angeles East Medical CenterComment on above:Performed By: #### BC ####[address] [place] [address] Cult,Bloodon 58-97-6565Dwfi,BloodSpecimen Description .BLOOD Special Requests LT AC 7 ML Culture NO GROWTH 6 DAYS Report Status FINAL 11/04/2017[facility] CincinnatiComment on above:Performed By: #### BC ####[address] [address] Cult,Bloodon 68-88-1039Dwam,BloodSpecimen Description .BLOODSpecial Requests RT F ARM 7 MLCulture POSITIVE BLOOD CULTURE, RN NOTIFIED: CATARINO Dunlap AT 0810 ON 10/30/17 DIRECT GRAM STAIN FROM BOTTLE: GRAM POSITIVE COCCI IN CHAINS AND PAIRSPNAFISH negative. Culture results to follow. VIRIDANS STREPTOCOCCUS GROUP SEVERAL MORPHOTYPES Report Status FINAL 11/01/2017[facility] CenterComment on above:Performed By: #### BC ####[address] [address] Cult,Urine,CCon [id number],Urine,CCSpecimen Description .CLEAN CATCH URINESpecial Requests NOT REPORTEDCulture GROUP D ENTEROCOCCUS 10to 50,000 CFU/MLReport Status FINAL 10/30/2017SUSCEPTIBILITYOrganism EGDMethod MICAmpicillin <=2 SUSCEPTIBLEPenicillin NOT REPORTEDCiprofloxacin 1 SUSCEPTIBLEErythromycin NOT REPORTEDGentamicin,High Level NOT REPORTEDLevofloxacin 1 SUSCEPTIBLELinezolid NOT REPORTEDNitrofurantoin <=16 SUSCEPTIBLESynercid NOT REPORTEDStreptomycin,Hi Level NOT REPORTEDTetracycline <=1 SUSCEPTIBLETigecyclineNOT REPORTEDVancomycin 1 SUSCEPTIBLESelect Medical Specialty Hospital - CincinnatiComment on above:Performed By: #### CCUC ####[address] [place] [address] Progress Noteon [id number] IP Note OR TranscriptionNoEast [place] Regional HospitalBasic Metabolic Profon 10-29-2017(cont.)NormalSt. Francis HospitalComment on above:Result Comment: Average GFR for 30-39 years old: 107 mL/min/1.73sq mChronic Kidney Disease: <60 mL/min/1.73sq mKidney failure: <15 mL/min/1.73sq meGFR calculated using average adult body mass. Additional eGFR calculator available at:http://www.[employer].Audicus/multiple_crcl_2012.htmKaiser Permanente [facility] [address] [place] [address] Performed By: #### CDP, BMP ####[facility] [address] [place] [address] Anion gap12 mmol/LNormal 9-17St. Francis HospitalComment on above:Performed By: #### CDP, BMP ####[facility] [address] [place] [address] Alnvxdk5.6 mg/dLLow8.6-10.4St. Francis HospitalComment on above:Performed By: #### CDP, BMP ####[facility] [address] [place] [address] Ehckllab905 mmol/GCmgchy38-097TxhmrSt. Francis HospitalComment on above: Performed By: #### CDP, BMP ####[facility] [address] [place] [address] XW830 mmol/DYagfsh77-04NrunxSt. Francis HospitalComment on above:Performed By: #### CDP, BMP ####[facility] [address] [place] [address] Wiamxtcnlu3.37 mg/dLLow0.50-0.90St. Francis HospitalComment on above:Performed By: #### CDP, BMP ####[facility] [address] [place] [address] eGFR (non-black) mL/min/{1.73_m2}Normal>60St. Francis HospitalComment on above: Performed By: #### LUCY, BMP ####[address] [place] [address] Glucose mass conc90 mg/fNLtoudq73-69Mkvwf [facility] HospitalComment on above:Performed By: #### CDP, BMP ####Tia [address] [place] [address] Potassium molar conc4.0 mmol/LNormal 3.7-5.3MercColorado River Medical CenterComment on above:Performed By: #### LUCY, BMP ####Tia Cheng[address] [place] [address] Mwznll568 mmol/CKgmlyk602-636CnznbSt. Francis HospitalComment on above:Performed By: #### LUCY, BMP ####Tia [address] [place] [address] Urea nitrogen8 mg/dLNormal6-20[facility] Comment on above:Performed By: #### LUCY, BMP ####[address] [place] [address] BUN/CRE RatioNOT REPORTEDNormal9-20St. Francis HospitalComment on above:Performed By: #### LUCY, BMP ####[address] [place] [address] Staging:NOT REPORTED NormalSt. Francis HospitalComment on above:Performed By: #### LUCY, BMP ####[facility] [place] [address] CBC with Diffon [id number]. Basophil0.03 k/uLNormal0.00-0.20St. Francis HospitalComment on above:Performed By: #### LUCY, BMP ####[address] [place] [address] Abs.Neutrophil (Seg)3.73 k/uLNormal 1.50-8.10St. Francis HospitalComment on above:Performed By: #### CDP, BMP ####[address] [address] Basophils/100 WBC Auto (Bld)1 %Normal0-2MercColorado River Medical CenterComment on above:Performed By: #### CDP, BMP ####[address] [address] Uaouvfjhixe2.19 10*3/uLNormal0.00-0.44St. Francis HospitalComment on above:Performed By: #### CDP, BMP ####[address] [address] Eosinophils/100 leukocytes3 %Normal1-4St. Francis HospitalComment on above:Performed By: #### CDP, BMP ####[address] [address] Erythrocyte distribution width Auto Ratio (RBC)13.1 %Normal 11.8-14.4St. Francis HospitalComment on above:Performed By: #### CDP, BMP ####[address] [address] Erythrocytes (RBC)3.84 10*6/uLLow3.95-5.11[facility] Comment on above:Performed By: #### CDP, BMP ####[address] [address] Granulocytes/100 WBC (Bld)%Normal0.00-0.30St. Francis HospitalComment on above:Result Comment: [address] [address] Performed By: #### CDP, BMP ####[address] [address] Hematocrit (HCT)34.9 %Low36.3-47.1MColorado River Medical CenterComment on above: Performed By: #### CDP, BMP ####[address] [place] [address] Hemoglobin mass conc (Bld)10.6 g/dLLow11.9-15.1MColorado River Medical CenterComment on above:Performed By: #### CDP, BMP ####[facility] [address] [place] [address] Immature granulocytes #/vol (Bld)0 %Rhmvma2MvwmrSt. Francis HospitalComment on above:Performed By: #### CDP, BMP ####[address] [address] Wwwpxyqjyow7.70 10*3/uLNormal1.10-3.70St. Francis HospitalComment on above:Performed By: #### CDP, BMP ####[facility] Medical Centerbrandi [address] [address] Lymphocytes/100 rlzuklseji51 %Krrync11-77NlakdSt. Francis HospitalComment on above: Performed By: #### CDP, BMP ####[facility] Centerbrandi [address] [address] ELM36.6 bwZhkcbx72.2-33.5[facility] Comment on above:Performed By: #### CDP, BMP ####[facility] Centerbrandi [address] [place] [address] MCHC mass conc (RBC)30.4 g/nUNgaxrg68.4-34.8 St[facility] Francis HospitalComment on above:Performed By: #### CDP, BMP ####[facility] [address] [place] [address] TQK69.9 fL Mjbefy38.6-102.9St. Francis HospitalComment on above:Performed By: #### LUCY, BMP ####[address] [address] Monocytes0.36 10*3/uLNormal0.10-1.20St. Francis HospitalComment on above:Performed By: #### LUCY, BMP ####[address] [address] Monocytes/100 leukocytes6 %Normal3-12St. Francis HospitalComment on above:Performed By: #### LUCY, BMP ####[address] [address] Neutrophil (Seg)62 % Snpvwe50-49XkbjpSt. Francis HospitalComment on above:Performed By: #### LUCY, BMP ####[address] [address] Platelet mean volume (PMV)9.9 fLNormal8.1-13.5[facility] Comment on above:Performed By: #### LUCY, BMP ####[address] [phone] 10*3/dJHmczbn928-998TgmpnSt. Francis HospitalComment on above:Performed By: #### LUCY, BMP ####[address] [address] WBC (Leukocytes)6.0 10*3/uLNormal3.5-11.3MColorado River Medical CenterComment on above:Performed By: #### LUCY, BMP ####[address] [address] Auto Diff PerformedNOT REPORTEDSelect Medical Specialty Hospital - CincinnatiComment on above:Performed By: #### LUCY, BMP ####Tia [address] [phone] morphologyNOT REPORTEDWexner Medical CenterComment on above:Performed By: #### LUCY, BMP ####[address] [place] [address] PlateletsNOT REPORTEDSelect Medical Specialty Hospital - CincinnatiComment on above:Performed By: #### LUCY, BMP ####[address] [place] [address] WBC MorphologyNOT REPORTEDSelect Medical Specialty Hospital - CincinnatiComment on above:Performed By: #### LUCY, BMP ####[address] [place], [place] [phone] Summaryon [id number] IP Note OR [place] [employer] NormalSt. Francis HospitalHistory and Physicalon [id number] IP Note OR TranscriptionNormMercy Health St. Elizabeth Boardman HospitalUA w/Reflex Cultureon 69-77-6749Mjgocsnwj (direct)NegativeAbOhio State Health System Comment on above:Performed By: #### CORBIN ROSE ####Tia Edlkpcuhdowl[address]4 [place] [address] CommentCulture ordered based on defined criteria.[facility] Hospital - CincinnatiComment on above:Result Comment: Tia [address] [place] [address] [phone] By: #### CORBIN ROSE ####Tia Bvybnyxsnbga3346 [place] [address] Acetaminophen mass concLARGEAbresearch belton hospitalalProtestant HospitalComment on above:Performed By: #### CORBIN ROSE ####Apolloy Mbhmmzqeqfqa[address]37 [place] [address] Hemoglobin mass conc (Bld)NegativeCass Medical CenteralProtestant HospitalComment on above:Performed By: #### CORBIN ROSE ####[facility] Zexgynmfpgnu[address] [place], [place] [phone],UrPositiveAbnormalNEGSt. Francis Hospital Comment on above:Performed By: #### MILTON UMSARAO ####[facility] Eemibczqhobm4509 [place], [place] [phone]LEARSt. Francis HospitalComment on above:Performed By: #### CORBIN ROSE ####[facility] Vvedpyxcxnht1191 [place], [place] [phone], colorDARK YELLOW AbnormalYELMerCottage Children's HospitalComment on above:Performed By: #### CORBIN ROSE ####Tia Vsvaaqsdamkn[address]10 [place] [address] Urine, glucose presenceNegativeNoformerly western wake medical centerNEGSt. Francis HospitalComment on above:Performed By: #### CORBIN ROSE ####Apolloy Oyaawzzyfsld2034 [place], [place] [phone], leukocyte esterase presenceTRACEAbnoal NEGSt. Francis HospitalComment on above:Performed By: #### MILTON UMJOANNE ####Tia Xxdqmoaoiovd5384 [place], [place] [phone], pH6.5 [pH]Normal5.0-8.0MerCottage Children's HospitalComment on above: Performed By: #### MILTON UMICAO ####[facility] Dfbtsmtboptb8736 [place], [place] [phone], protein presence3+AbnormalNEGSt. Francis HospitalComment on above:Performed By: #### MILTON, UMICAO ####[facility] Fpkrawqlfnqj3199 [place], [place] [phone], specific gravity1.023Normal 1.005-1.030MerFulton County Hospitalent Medical CenterComment on above:Performed By: #### MILTON UMSARAO ####[address] [address] Urobilinogen,UrNormalNormalNORMSt. Francis HospitalComment on above: Performed By: #### MILTON UMSARAO ####[address] [address] Urinalysis,Microon 08-32-0541Kuapt, crystals in sedimentFEW AbnormalNONEMeMenlo Park VA HospitalComment on above:Result Comment: URIC ACIDPerformed By: #### KEHINDE ROSEO ####[address] [address] Urine, yeast presence in sedimentFEWAbnormalHONORHEALTH JOHN C. LINCOLN MEDICAL CENTERE St. Francis HospitalComment on above:Result Comment: [address] [address] Performed By: #### MILTON UMSARAO ####[address] [address] -----NormalSt. Francis HospitalComment on above:Performed By: #### MILTON UMICAO ####[address] [address] Urine WBC's2 TO 3Jexmnf6-0ZgjrlSt. Francis HospitalComment on above: Performed By: #### UAFitz, UMICAO ####[address] [address] Urine, epithelial cells in jrvwjeak65 TO 28Aqmabl1-2MvamtSt. Francis HospitalComment on above:Performed By: #### UAFitz, UMICAO ####[facility] Xntkqfoufhvm[address] [place] [address] Urine, erythrocytes0 TO 2Bvzxbm4-5KykbzSt. Francis HospitalComment on above:Result Comment: Reference range defined for non-centrifuged specimen.Performed By: #### MILTON, CORBIN ####Tia Dvewhwxrlijv3141 [place] [address] Epithelial, RenalNOT OGITDWZZGjwhph5Stziv[address] [place], [place] [address]Comment on above:Performed By: #### MILTON, CORBIN ####Apolloy Umvparppdxxa7248 [place], [place] [phone] StrandsNOT REPORTEDNationwide Children's HospitalComment on above:Performed By: #### MILTON, CORBIN ####[facility] Ecbaozibgcov86[address] [place], [place] [phone] ObservationsNOT REPORTEDNormalNRKindred Hospital LimaComment on above:Performed By: #### CORBIN ROSE ####[facility] [address]gcicvhib[address] [place] [address] [phone] REPORTEDNoalMercy Health Fairfield HospitalComment on above:Performed By: #### MILTON, UMSARAO ####[facility] Rrtifwqybzfx0519 [place], [place] [phone], amorphous sediment presence in sedimentNOT REPORTEDNationwide Children's HospitalComment on above: Performed By: #### MILTON, UMICAO ####[facility] Fnivaxthtdvh[address] [place] [address] Urine, bacteria in sedimentNOT REPORTEDNationwide Children's HospitalComment on above:Performed By: #### UAFitz, UMICAO ####[facility] Kbihovspeucj[address] [place], [place] [phone], casts in sediment NOT REPORTEDNormal08St. Francis HospitalComment on above:Performed By: #### UAFitz, UMICAO ####[facility] Qhpqecujqiix1467 [place] [phone] Metabolic Profon 10-28-2017(cont.)NormalSt. Francis HospitalComment on above:Result Comment: Average GFR for 30-39 years old: 107 mL/min/1.73sq mChronic Kidney Disease: <60 mL/min/1.73sq mKidney failure: <15 mL/min/1.73sq meGFR calculated using average adult body mass. A dditional eGFR calculator available at:http://www.[employer]/multiple_crcl_2012.htm[address] [address] Performed By: #### CDP, BMP ####[facility] [address] [address] Anion gap12 mmol/LNormal 9-17St. Francis HospitalComment on above:Performed By: #### CDP, BMP ####[facility] [address]mlrvwirbdbq[address] [place] [address] Sqojdpq3.4 mg/dLLow8.6-10.4St. Francis HospitalComment on above:Performed By: #### CDP, BMP ####[facility] [address]ialqabiiyvc[address] [place] [address] Pwwunaxh15 mmol/QRuopxi44-819OgccpSt. Francis HospitalComment on above: Performed By: #### CDP, BMP ####[facility] Esxsrwqlqfsp[address] [place] [address] OR[address] mmol/XHcvrqe52-55KgpxxSt. Francis HospitalComment on above:Performed By: #### CDP, BMP ####[facility] Totobeqbubvy[address]181 [place] [address] Yvcbaqkvxm7.44 mg/dLLow0.50-0.90St. Francis HospitalComment on above:Performed By: #### CDP, BMP ####[facility] [address]jfdrejopces[address] [place] [address] eGFR (non-black) mL/min/{1.73_m2}Normal>60St. Francis HospitalComment on above: Performed By: #### LUCY, BMP ####Tia Cheng[address] [place] [address] Glucose mass jgqu657 mg/dEOtky46-17NqucjColorado River Medical CenterComment on above:Performed By: #### LUCY, BMP ####Tia Cheng[address] [place] [address] Potassium molar conc3.5 mmol/LLow3.7-5.3 [facility] [facility] HospitalComment on above:Performed By: #### LUCY, BMP ####[facility] Centerbrandi Srxonhbswlcv[address] [place] [address] Yodbxq172 mmol/IRjkszx060-950FjxlsSt. Francis HospitalComment on above:Performed By: #### LUCY, BMP ####[facility] [address]pypsbqxzbiu[address] [place] [address] Urea mg/dLNormal6-20St. Francis HospitalComment on above:Performed By: #### LUCY, BMP ####Tia [address]gmcngqbr[address] [place] [address] BUN/CRE RatioNOT REPORTEDNormal9-20St. Francis HospitalComment on above:Performed By: #### LUCY, BMP ####Tia Vrxddvy[address]olz[address] [place] [address] Staging:NOT REPORTED NormalSt. Francis HospitalComment on above:Performed By: #### LUCY, BMP ####Tia Zpngqvvntqwu[address] [place] [address] CBC with Diffon 31-97-1906Vlj. Basophil0.03 k/uLNormal0.00-0.20St. Francis HospitalComment on above:Performed By: #### LUCY, BMP ####Tia Gttngmydlokb0715 [place] [address] Abs.Neutrophil (Seg)5.25 k/uLNormal 1.50-8.10St. Francis HospitalComment on above:Performed By: #### CDP, BMP ####Tia [address] [address] Basophils/100 WBC Auto (Bld)0 %Normal0-2MercColorado River Medical CenterComment on above:Performed By: #### CDP, BMP ####[address] [address] Zzjpsqlgigr3.17 10*3/uLNormal0.00-0.44St. Francis HospitalComment on above:Performed By: #### CDP, BMP ####[address] [address] Eosinophils/100 leukocytes2 %Normal1-4St. Francis HospitalComment on above:Performed By: #### CDP, BMP ####[address] [address] Erythrocyte distribution width Auto Ratio (RBC)13.2 %Normal 11.8-14.4St. Francis HospitalComment on above:Performed By: #### CDP, BMP ####[address] [address] Erythrocytes (RBC)4.39 10*6/uLNormal3.95-5.11[facility] Comment on above:Performed By: #### CDP, BMP ####[address] [address] Granulocytes/100 WBC (Bld)0.03 k/uLNormal 0.00-0.30St. Francis HospitalComment on above:Result Comment: [facility] [address] [place] [address] Performed By: #### LUCY, BMP ####[facility] Centerbrandi [address] [address] Hematocrit (HCT)38.7 %Ulxpta38.3-47.1MColorado River Medical CenterComment on above:Performed By: #### LUCY, BMP ####[facility] Centerbrandi [address] [phone] mass conc (Bld)12.2 g/kTOkutyp77.9-15.1MColorado River Medical CenterComment on above:Performed By: #### LUCY, BMP ####[address] [phone] granulocytes #/vol (Bld)0 %Rsejsx4XawbvSt. Francis HospitalComment on above:Performed By: #### LUCY, BMP ####[address] [phone] 10*3/uLNormal1.10-3.70St. Francis HospitalComment on above:Performed By: #### LUCY, BMP ####[address] [address] Lymphocytes/100 rikxrklhia31 %Xyq88-45CtmnxSt. Francis HospitalComment on above:Performed By: #### LUCY, BMP ####[address] [phone] nkIvdexr18.2-33.5[facility] Comment on above:Performed By: #### LUCY, BMP ####[address] [phone] mass conc (RBC)31.5 g/fIPbhqki86.4-34.8 [facility] HospitalComment on above:Performed By: #### LUCY, BMP ####[address] [place] [phone] fL Danvug71.6-102.9St. Francis HospitalComment on above:Performed By: #### LUCY, BMP ####Tia [address] [place] [address] Monocytes0.44 10*3/uLNormal0.10-1.20St. [facility] HospitalComment on above:Performed By: #### LUCY, BMP ####Tia [address] [place] [address] Monocytes/100 leukocytes6 %Normal3-12St. Francis HospitalComment on above:Performed By: #### LUCY, BMP ####Tia [address] [place] [address] Neutrophil (Seg)70 %High 36-65St. Francis HospitalComment on above:Performed By: #### LUCY, BMP ####Tia [address]otcejmxfb[address] [place] [address] Platelet mean volume (PMV)9.6 fLNormal8.1-13.5St. [facility] HospitalComment on above:Performed By: #### LUCY, BMP ####[address] [address] Irgctdzdp274 10*3/vKGfvy355-264QkwopCottage Children's HospitalComment on above:Performed By: #### LUCY, BMP ####Tia Yjeydrnpoyly[address]25 [place] [address] WBC (Leukocytes)7.6 10*3/uLNormal3.5-11.3 [facility] HospitalComment on above:Performed By: #### LUCY, BMP ####[facility] Nqqniafnjh[address] [place] [address] Auto Diff PerformedNOT REPORTEDNormalSt. Francis HospitalComment on above: Performed By: #### CDP, BMP ####[facility] Wuufvbuamtco[address] [place] [address] Erythrocyte morphologyNOT REPORTEDNormalSt. Francis HospitalComment on above:Performed By: #### CDP, BMP ####[facility] Hdnnjyelezhp25[address] [place] [address] PlateletsNOT REPORTED NormalMerCottage Children's HospitalComment on above:Performed By: #### CDP, BMP ####[facility] Abtjxmqmqgpn0524 [place] [address] WBC MorphologyNOT REPORTEDSelect Medical Specialty Hospital - CincinnatiComment on above: Performed By: #### CDP, BMP ####[facility] Gjsebqqlbsat3237 [place] [address] ED Noteon 16-68-1169ZFQ IP Note OR TranscriptionNormalSt. Francis HospitalHIM IP Note OR TranscriptionNormalSt. Francis HospitalHIM IP Note OR TranscriptionNormalSt. Francis Hospital HIM IP Note OR TranscriptionNormalGuernsey Memorial Hospitalcy [facility] Provider Noteon 31-52-0419GPU IP Note OR TranscriptionNoEast [facility] Vital Signs Date TimeVital SignValuePerforming EwpwtvaizSxynpaxs46-17-7929 12:11040Body mass index (BMI) [Ratio]23.56 kg/z3YuoztyvellSammi Estrada MULTI DISCIPLINED LANGUAGE ANALYST Work Phone: [facility] CenterMwhdkipnbb63-05-3834 12:11040Body .33 kgSammi Estrada MULTI DISCIPLINED LANGUAGE ANALYST Work Phone: [facility] CenterLzezvsrzbb89-22-5303 12:11-040Diastolic blood mm[Hg]Sammi Estrada MULTI DISCIPLINED LANGUAGE ANALYST Work Phone: noRusk Rehabilitation CenterIhmnlxiaje71-69-2132 12:11-0400Respiratory rate18 /minSammi Estrada MULTI DISCIPLINED LANGUAGE ANALYST Work Phone: [facility] CenterUwegmzukrc12-22-5349 12:11-0018GqX6% (BldA) [Mass fraction]98 %Sammi Yusufi MULTI DISCIPLINED LANGUAGE ANALYST Work Phone: [facility] CenterPfpanxxdru69-80-9455 12:11-0400Systolic blood obxfamun754 mm[Hg]Sammi Rockiani MULTI DISCIPLINED LANGUAGE ANALYST Work Phone: [facility] CenterOssuoovfve49-12-4653 15:30-0500Body cm Sammi Rockiani MULTI DISCIPLINED LANGUAGE ANALYST Work Phone: [phone] [place], [place] [address]Iubpbfqprr81-64-6259 15:30-0500Body mass index (BMI) [Ratio]24.98 kg/p6Yxvysnnmyn Graziani MULTI DISCIPLINED LANGUAGE ANALYST Work Phone: [phone] CenterUcjzaxftyx03-57-4223 15:30-0500Body zypicz37.96 kgJacmarisela Rockiani MULTI DISCIPLINED LANGUAGE ANALYST Work Phone: [phone] CenterCavxkxxsck56-49-7148 15:30-0500Diastolic blood cowkgktd68 mm[Hg]Sammi Pranaviani MULTI DISCIPLINED LANGUAGE ANALYST Work Phone: [phone] CenterVmfhmghozx35-57-5983 15:30-0500Systolic blood gizwgtyf526 mm[Hg]Sammi Rockiani MULTI DISCIPLINED LANGUAGE ANALYST Work Phone: [phone] CenterZgymmsasbx55-97-4562 10:30-0500Body ihkrqj427.48 cmOhiohealth11-08-2024 10:30-0500Body mass index (BMI) [Ratio]25.7 kg/f2RsahaqhsvOhiohealth11-08-2024 10:30-0500Body onsldu97.95 kgOhiohealth11-08-2024 10:30-0500Diastolic blood eijiyasm05 mm[Hg][facility]11-08-2024 10:30-0500 Heart stoj110 /minOhiohealth11-08-2024 10:30-0500Systolic blood eevvaqni821 mm[Hg][facility]11-07-2024 10:43-0500 Body eegjsv094 cmEfrain Jean Baptiste MD Work Phone: [facility] CenterVwohvnwpir87-75-1990 10:43-0500Body mass index (BMI) [Ratio]25.33 kg/t1OnomdotEfrain Jean Baptiste MD Work Phone: [facility] CenterKktmqcvdbd48-68-0442 10:43-0500Body hnywpp33.86 kgEfrain Jean Baptiste MD Work Phone: [phone] [place], [place] [address]Dinzdxxmlw36-11-4485 13:10-0400Body iscjad896 cm Sammi Yusufi MULTI DISCIPLINED LANGUAGE ANALYST Work Phone: [phone] [place], [place] [address]Cbaddcmutx41-30-9910 13:10-0400Body mass index (BMI) [Ratio]24.8 kg/f3Fonacxxwxs Graziani MULTI DISCIPLINED LANGUAGE ANALYST Work Phone: [phone] [place], [place] [address]Hjoltwjodc91-06-4069 13:10-0400Body .5 kg Sammi Yusufi MULTI DISCIPLINED LANGUAGE ANALYST Work Phone: [phone] [place], [place] [address]Rpkxszuxyx47-69-9005 13:10-0400Diastolic blood jfymyqci72 mm[Hg]Sammi Rockiani MULTI DISCIPLINED LANGUAGE ANALYST Work Phone: [phone] [place], [place] [address]Nilhsfukpr40-45-0364 13:10-0400Systolic blood kjzggcyy547 mm[Hg]Sammi Pranaviani MULTI DISCIPLINED LANGUAGE ANALYST Work Phone: [phone] [place], [place] [address]Jyrnamfgpb82-24-3477 11:20-0400Body wcqyns127.48 cmOhiohealth04-03-2024 11:20-0400Body mass index (BMI) [Ratio]25.6 kg/b8ViqwqfeifOhiohealth04-03-2024 11:20-0400Body goppgbaoydq53.5 [degF][facility]04-03-2024 11:20-0400Body pigyec44.5 kgOhiohealth04-03-2024 11:20-0400Diastolic blood mm[Hg][facility]04-03-2024 11:20-0400 Heart pacu200 /[facility]04-03-2024 11:20-0400 Respiratory rate18 /[facility]04-03-2024 11:20-0400 SaO2% (BldA) [Mass fraction]98 %[facility]04-03-2024 11:20-0400Systolic blood esyqgcrx223 mm[Hg][facility] 12-25-2023 13:40-0500Body aivbit741.5 cmSammi Estrada MULTI DISCIPLINED LANGUAGE ANALYST Work Phone: [facility] CenterYiipjrszde20-60-6325 13:40-0500Body mass index (BMI) [Ratio]25.61 kg/c9StrxvygcrsSammi Yusufi MULTI DISCIPLINED LANGUAGE ANALYST Work Phone: [facility] CenterFlnvxvtwwe14-54-6753 13:40-0500Body tovgqw06.5 kg Sammi Yusufi MULTI DISCIPLINED LANGUAGE ANALYST Work Phone: [facility] CenterUfifmiwkxj96-68-4342 13:40-0500Diastolic blood jlfihnyx22 mm[Hg]Sammi Yusufi MULTI DISCIPLINED LANGUAGE ANALYST Work Phone: [facility] CenterIyjsnftqxk78-67-5925 13:40-0500Systolic blood fhufpilm054 mm[Hg]Sammi Yusufi MULTI DISCIPLINED LANGUAGE ANALYST Work Phone: [facility] CenterQcuivjpdvp71-55-8487 16:30-0500Body .48 cmPamela Linda Other [facility]01-05-2024 16:30-0500 Body mass index (BMI) [Ratio]26.01 kg/z9EubqnjLuisa Mckeon Other [employer] Other 01-05-2024 16:30-0500Body jxznujdibsc80 [degF]Luisa Lnida Other [employer] Other 01-05-2024 16:30-0500Body wmtquq88.5 kgLuisa Mckeon Other [facility]01-05-2024 16:30-0500 Respiratory rate18 /minLuisa Mckeon Other [employer] Other 01-05-2024 16:30-2573YuI7% (BldA) [Mass fraction]97 % Luisa Mckeon Other [employer] Other 12-26-2023 15:00-0500Body vavfbc883.48 cmJannettejared Karen Other [employer] Other 12-26-2023 15:00-0500Body mass index (BMI) [Ratio] 26.12 kg/z5Upvyiy Karen Other [employer] Other 12-26-2023 15:00-0500Body ddcvkjnsske59.3 [degF]Yelitza Jones Other [employer] Other 12-26-2023 15:00-0500Body wezliu46.77 kgJannettejared Karen Other [employer] Other 12-26-2023 15:00-0500Diastolic blood tjdasyxk24 mm[Hg] Yelitza Jones Other [employer] Other 12-26-2023 15:00-0500Systolic blood mm[Hg] Yelitza Jones Other [employer] Other 11-30-2023 09:50-0500Body rkzzwu361.48 cmAmanda Kari Other [employer] Other 11-30-2023 09:50-0500Body mass index (BMI) [Ratio] 27.43 kg/m0Aavaal Kari Other [employer] Other 11-30-2023 09:50-0500Body cilkpwhngjh42.1 [degF]Hilary Kari Other [employer] Other 11-30-2023 09:50-0500Body huilfs28.04 kgAmanda Kari Other [employer] Other 11-30-2023 09:50-0500Respiratory rate18 /minAmanda Kari Other [employer] Other 11-30-2023 09:50-6342LrU3% (BldA) [Mass fraction]99 % Hilary Kari Other [employer] Other 09-19-2023 09:45-0400Body osjxlj295.48 cmYelitza Jones Other [employer] Other 09-19-2023 09:45-0400Body mass index (BMI) [Ratio] 26.15 kg/g5IglphcYelitza Jones Other [employer] Other 09-19-2023 09:45-0400Body sfkjvffeswf83.2 [degF]Yelitza Jones Other [employer] Other 09-19-2023 09:45-0400Body zqvivf61.86 kgYelitza Jones Other [employer] Other 09-19-2023 09:45-0400Diastolic blood qinblkaa06 mm[Hg] Yelitza Jones Other [employer] Other 09-19-2023 09:45-0400Systolic blood cniqlscw251 mm[Hg] Yelitza Jones Other [employer] Other 05-01-2023 10:30-0400Body hkwylp502.48 cmYelitza Jones Other [employer] Other 05-01-2023 10:30-0400Body mass index (BMI) [Ratio] 28.16 kg/d2Aywgdo Braun Other [facility] [employer] Other 05-01-2023 10:30-0400Body igbigdcblqk79.6 [degF]Yelitza Karen Other [employer] Other 05-01-2023 10:30-0400Body wllkti11.85 kgYelitza Karen Other [facility] [employer] Other 05-01-2023 10:30-0400Diastolic blood raickebp44 mm[Hg] Yelitza Jones Other [employer] Other 05-01-2023 10:30-5202IwZ3% (BldA) [Mass fraction]99 % Yelitza Jones Other [employer] Other 05-01-2023 10:30-0400Systolic blood gpkoalbw018 mm[Hg] Yelitza Jones Other [facility] [employer] Other Encounters Encounter DateEncounter TypeCare ProviderFacilityStart: 09-04-2025 End: 38-24-8103YhdnmxQpeifdw W Bauer MD Work Phone: [facility] 210Comment on above: Intractable chronic migraine without aura and without status migrainosus; ADD (attention deficit disorder) without hyperactivityStart: 08-02-2025 End: 25-21-5629EgteoqEmxplyn W Bauer MD Work Phone: [facility] 210Comment on above:ADD (attention deficit disorder) without hyperactivityStart: 07-15-2025 End: 14-56-1720Vozeah flowsheetJarrodcqueline Melav Yusufi MULTI DISCIPLINED LANGUAGE ANALYST Work Phone: noms NEUROLOGYStart: 07-15-2025 End: 17-79-3867Hiimxx flowsheetJarrodcwilline Melva Yusufi MULTI DISCIPLINED LANGUAGE ANALYST Work Phone: noms NEUROLOGYStart: 07-15-2025 End: 82-69-4337Wuqmxs outpatient visit 15 minutesAmyline Melva Yusufi MULTI DISCIPLINED LANGUAGE ANALYST Work Phone: [facility] [place] NeurologyComment on above:Intractable chronic migraine without aura and without status migrainosus (Primary Dx)Start: 07-15-2025 End: 95-22-3211hzqksslhufUTQRZYXGJN Melva YUSUFINot AvailableStart: 07-04-2025 End: 82-31-8803WnovjhRzarzdopmo Melva Yusufi MULTI DISCIPLINED LANGUAGE ANALYST Work Phone: noMS [facility] 210Comment on above:ADD (attention deficit disorder) without hyperactivityStart: 06-15-2025 End: 70-92-3544ZynxemIoafciiran Melva Yusufi MULTI DISCIPLINED LANGUAGE ANALYST Work Phone: [facility] [place] [facility]rologyComment on above:Intractable chronic migraine without aura and without status migrainosusStart: 06-03-2025 End: 11-47-8416UebthiRtxylfxvpz Melva Yusufi MULTI DISCIPLINED LANGUAGE ANALYST Work Phone: [facility]oms [facility] 210Comment on above:ADD (attention deficit disorder) without hyperactivityStart: 06-01-2025 End: 60-12-6225GzorknGnipfzdeho Melva Rockiani MULTI DISCIPLINED LANGUAGE ANALYST Work Phone: [facility]oms [facility]URO 210Comment on above:ADD (attention deficit disorder) without hyperactivityStart: 05-06-2025 End: 83-98-3574BtioyeEmtcuxuahy Melva Rockiani MULTI DISCIPLINED LANGUAGE ANALYST Work Phone: [facility] 210Comment on above:ADD (attention deficit disorder) without hyperactivityStart: 04-07-2025 End: 14-68-5380ThbvwsYmzpkhf W Bauer MD Work Phone: [facility] 210Comment on above:ADD (attention deficit disorder) without hyperactivityStart: 03-25-2025 End: 96-37-1475Tieqvlkv Result EncounterAmycrystal Melva Estrada MULTI DISCIPLINED LANGUAGE ANALYST Work Phone: noms External Department UnsolicitedStart: 03-25-2025 End: 45-55-3551Lukughte Result EncounterAmycrystal Melva Estrada MULTI DISCIPLINED LANGUAGE ANALYST Work Phone: noms External Department UnsolicitedStart: 03-24-2025 End: 50-57-8763Uezdwt outpatient visit 15 minutesAmycrystal Melva Estrada MULTI DISCIPLINED LANGUAGE ANALYST Work Phone: [facility]oms [facility] NEURComment on above:Intractable chronic migraine without aura and without status migrainosus (CMS/HCC) (Primary Dx); Cognitive decline; Other specified hypothyroidism; Autoimmune disease (CMS/HCC)Start: 03-24-2025 End: 08-75-0522zdygprrbrzFJNNIONFKU Melva Vickyt AvailableStart: 03-24-2025 End: 56-84-1417Wmszex flowsheetJarrodhank Melva Estrada MULTI DISCIPLINED LANGUAGE ANALYST Work Phone: noms NEUROLOGYStart: 03-24-2025 End: 20-20-9334Rftecm flowsLiamhank Melva Estrada MULTI DISCIPLINED LANGUAGE ANALYST Work Phone: noms NEUROLOGYStart: 03-10-2025 End: 33-97-1749ZsfrbzFhewbmj W Bauer MD Work Phone: noms [facility] NEURO 210Comment on above:ADD (attention deficit disorder) without hyperactivityStart: 02-08-2025 End: 29-21-4667YbbdqtObpcpbj C Windnagel MULTI DISCIPLINED LANGUAGE ANALYST Work Phone: noms [facility] NEURO 210Comment on above:ADD (attention deficit disorder) without hyperactivityStart: 01-25-2025 End: 00-79-5624eepcwzhsszXJEGCMW G TESMONDNot AvailableStart: 01-06-2025 End: 06-53-5539UufbdqLjsodkv W Bauer MD Work Phone: noms [facility] NEURO 210Comment on above:ADD (attention deficit disorder) without hyperactivityStart: 12-09-2024 End: 73-66-1395Ectwyf outpatient visit 15 minutesJahank Melva Rockginny MULTI DISCIPLINED LANGUAGE ANALYST Work Phone: noms [facility] NEURComment on above:Intractable chronic migraine without aura and without status migrainosus (CMS/HCC) (Primary Dx); Autoimmune disease (CMS/HCC)Start: 12-09-2024 End: 30-60-1759qjcjckimdlRXRPWBJAJK Melva OHINot AvailableStart: 12-09-2024 End: 65-21-3375Ekeefz flowsheetJarrodcwilline Melva Yusufi MULTI DISCIPLINED LANGUAGE ANALYST Work Phone: noms NEUROLOGYStart: 12-09-2024 End: 85-85-4218Prswns flowsheetJarrodcwilline Melva Estrada MULTI DISCIPLINED LANGUAGE ANALYST Work Phone: noms NEUROLOGYStart: 12-05-2024 End: 34-62-2386IfyzlfJspifqj W Bauer MD Work Phone: noms [facility] NEURO 210Comment on above:ADD (attention deficit disorder) without hyperactivityStart: 10-27-2024 End: 18-60-6600NjsvhoZuzarfd W Bauer MD Work Phone: noms [facility] NEURO 210Comment on above:ADD (attention deficit disorder) without hyperactivityStart: 10-11-2024 End: 03-09-6979zwhncbkbmdEmprtn M BaileyFacility:[facility] Hospitaltart: 09-17-2024 End: 29-45-7325Qdwyvmghd Result EncounterEfrain Jean Baptiste MD Work Phone: noms External Department UnsolicitedStart: 09-17-2024 End: 69-72-6069Sakeruyor Result EncounterEfrain Jean Baptiste MD Work Phone: noms External Department UnsolicitedStart: 09-17-2024 End: 34-06-3968mtefaykxljMbunnneynDoctors Hospital Work Phone: Start: 09-17-2024 End: 61-04-1376Czllzoq encounter procedureUnc Health Phys[facility] Work Phone: Start: 09-16-2024 End: 72-44-4788Bzugvwmellisa Jean Baptiste MD Work Phone: noms NEUROLOGYStart: 09-16-2024 End: 25-16-2422Vseazo Magdiel Jean Baptiste MD Work Phone: noms NEUROLOGYStart: 09-16-2024 End: 10-45-5672cvktnuhgnsCCAZGDB W BAUERNot AvailableStart: 09-16-2024 End: 16-97-1689Amwikd outpatient visit 25 minutesBrechase Jean Baptiste MD Work Phone: noms SWS NEURComment on above:Chronic migraine without aura, not intractable, without status migrainosus (CMS/HCC) (Primary Dx); Chiari malformation type I (CMS/HCC); ADD (attention deficit disorder) without hyperactivity; Demyelinating disease of central nervous system (HCC) (CMS/HCC)Start: 09-15-2024 End: 29-01-1749KfnmsvZtcwfhf W Bauer MD Work Phone: noms [facility] NEURO 210Comment on above:ADD (attention deficit disorder) without hyperactivityStart: 08-26-2024 End: 17-55-9234FtqxvpCjtxpdntmq M Graziani MULTI DISCIPLINED LANGUAGE ANALYST Work Phone: noms [facility] NEURO 210Comment on above:ADD (attention deficit disorder) without hyperactivityStart: 08-19-2024 End: 00-06-2443UgngceAlsqgrznik M Graziani MULTI DISCIPLINED LANGUAGE ANALYST Work Phone: noms SWS NEURComment on above:Intractable chronic migraine without aura and without status migrainosus (CMS/HCC) (Primary Dx) Start: 07-27-2024 End: 14-08-5059Yduvagqtk Yasmin Frye Graziani MULTI DISCIPLINED LANGUAGE ANALYST Work Phone: noms H NEURO 210Start: 07-23-2024 End: 53-58-7254JyiyyzYulbpafsil M Graziani MULTI DISCIPLINED LANGUAGE ANALYST Work Phone: noms SWS NEURComment on above:ADD (attention deficit disorder) without hyperactivityStart: 07-15-2024 End: 89-90-3862Lgqddi flowsheetJarrodhank Melva Estrada MULTI DISCIPLINED LANGUAGE ANALYST Work Phone: noms BM NEUROLOGYStart: 07-15-2024 End: 49-21-4035Ipyida flowsheetJarrodadriannewilcrystal Melva Estrada MULTI DISCIPLINED LANGUAGE ANALYST Work Phone: noms BM NEUROLOGYStart: 07-15-2024 End: 05-06-7113Xyvrkr outpatient visit 15 minutesAmycrystal Melva Estrada MULTI DISCIPLINED LANGUAGE ANALYST Work Phone: noms SWS NEURComment on above:Intractable chronic migraine without aura and without status migrainosus (CMS/HCC) (Primary Dx); Autoimmune disease (CMS/HCC)Start: 03-10-2024 End: 34-21-2473unpefcqsqlJnbsxb E BraunFacility:[facility] Hospitaltart: 03-04-2024 End: 97-84-6961yniztsvltxChkehg John MillerLouis [facility] Work Phone: Start: 03-04-2024 End: 52-96-1001Czfebijq ReferredMD Umberto Jung Work Phone: [facility]-LAB Path Spec Shaquille HospStart: 02-11-2024 End: 20-31-7566yesuyzwerhKcendawcr [facility] Work Phone: Start: 02-11-2024 End: 34-69-9592Fojcccm encounter procedureUnc Health Phys[facility] Billy Work Phone: Start: 16-60-2061Les-patient / Non-visitUnc Health [facility] Work Phone: Start: 97-36-7323Kjyyne flowsheetSammi Estrada MULTI DISCIPLINED LANGUAGE ANALYST Work Phone: noms BM NEUROLOGYStart: 27-39-8344Xdsvlp flowsheet Sammi Estrada MULTI DISCIPLINED LANGUAGE ANALYST Work Phone: noms BM NEUROLOGYStart: 12-25-2023 End: 86-04-0244Fxjuswf encounter procedureJahank Estrada MULTI DISCIPLINED LANGUAGE ANALYST Work Phone: noms SWS NEURComment on above:Intractable chronic migraine without aura and without status migrainosus (CMS/HCC) (Primary Dx); ADD (attention deficit disorder) without hyperactivityStart: 11-14-2023 End: 41-71-4481rwdtgukjdfTfxbae Dymond Other [employer] Other Start: 42-82-1647Axjyxw outpatient visit 15 minutes Luisa MckeonBANNER [facility]OT[facility] Ur[facility] Care ClydeStart: 77-59-0629Xbvpeitqv encounterMarlobito JonesBANNER OCOTILLO [facility] Urgent Care ClydeStart: 11-14-2023 End: 45-82-7581Rnenwga encounter procedureFiradiss Physician Group-[facility] Billy Work Phone: Start: 11-04-2023 End: 67-21-7048pqcnluufixKyjypd Braun Other [employer] Other Start: 99-54-2016Ysshua outpatient visit 15 minutes Yelitza LópezIredell Memorial Hospital ClinicStart: 10-14-2023 End: 91-32-6182acmqcuwjhfHomwhy Braun Other [employer] Other Start: 52-53-7253Owivgxwuy encounterMarlobito JonesAultman Alliance Community Hospital ClinicStart: 10-09-2023 End: 76-10-5410vmxaxixvrhVgwjls Grob Other [employer] Other Start: 60-78-9725Hfvdgo outpatient visit 15 minutes Hilary LeblancMadison Hospital [facility] Care ClydeStart: 07-29-2023 End: 27-59-9937lcncnezcjpUxdbvz Jones Other [employer] Other Start: 13-93-0768Ywiwuubth for general adult medical examination without abnormal findingsMarcijared [facility] Medical ClinicStart: 09-10-6587Hhlquh outpatient visit 15 minutesMarlobito [facility] Start: 07-16-2023 End: 60-96-9898wbwanfhyvrSapoli Jones Other [employer] Other Start: 72-50-1256Imvxtsubu encounterMarcia Deana [facility] ClinicStart: 05-20-2023 End: 39-30-9893dwijqgddcxTbxcmf Jones Other [employer] Other Start: 92-56-9948Wulgewlcx encounterMarcia Deana [facility] ClinicStart: 03-10-2023 End: 53-52-2911bbnkqyedibByuyax Jones Other [employer] Other Start: 20-18-9428Dvslhv outpatient visit 15 minutes Yelitza [facility] ClinicStart: 12-16-2022 End: 85-16-4172kdwdqivbzaHwcyyo Jones Other [employer] Other Start: 16-76-3664Mxhdclwqz encounterMarcijared [facility] Medical ClinicStart: 12-12-2022(Televisit) TelevisitMarcijared [facility] Medical ClinicStart: 12-12-2022 End: 02-30-0578rixeqzgfngOkdevw Jones Other [employer] Other Start: 09-12-2022 End: 11-99-1317zefyezqvnqXP Yelitza Jones Work Phone: [facility] Work Phone: Start: 09-12-2022 End: 47-68-5764Bveuxxd encounter procedureMD Torre Karen Work Phone: [facility]-MRI Main CampusStart: 08-42-2670Rqvtj health examinationYelitza Jones Other [employer] Other Start: 88-50-2906Xgkphdaje for general adult medical examination without abnormal findingsTuscarawas Hospitaltart: 08-14-2021 End: 74-35-6920nsnhzajasgJMLCHU FAWWADFacility:X6Qyioz: 08-14-2021 End: 27-47-7535Aphsnntwz for general adult medical examination without abnormal findingsRIVERSIDE COUNTY REGIONAL MEDICAL CENTERDFacility:U1Wslpw: 21-50-1796nsdjjjjxrtWZ MARCIA E BRAUN Facility:X4Wfjgt: 07-05-2021 End: 80-68-3865kaxlbigteiTP YELITZA JONESFacility:D9Nkqyd: 06-12-2021 End: 48-92-4727adctrahlbzCG YELITZA JONESFacility:A2Donge: 05-22-2021 End: 69-83-9208qgjfmakmoxUM UMBERTO JUNGFacility:D0Qqmuh: 05-18-2021 End: 10-56-0656vywtvzmjlhJH DOCTOR MISCFacility:V1Gumih: 05-07-2021 End: 24-54-9593qjyjamiaztZV YELITZA JONESFacility:O0Miizt: 03-23-2021 End: 77-62-4879xvaaclattjUB YELITZA JONESFacility:P7Qsvus: 02-16-2021 End: 73-39-2817nuzznsaqwyON YELITZA JONESFacility:H2Bcurk: 12-23-2020 End: 22-61-2415oojvvkpbalZI DOCTOR MISCFacility:S3Xiwej: 89-41-9550Yxbdlpihi for antibody response examinationDR YELITZA JONESCleveland Clinic Marymount Hospitaltart: 11-13-2020 End: 76-38-1423rsxekxztudQB YELITZA Ma KARENFacility:F8Lctlv: 11-13-2020 End: 58-89-8024Ittmxedwg for antibody response examinationDR TORRE Anil KAREN Facility:B4Ignlv: 10-21-2020 End: 23-07-8480bgcjcltdtcET YELITZA Ma KARENFacility:A6Twhif: 09-11-2020 End: 90-41-0751svdqflypvoBISDDIOS CALLAHANFacility:G1Gcaof: 10-28-2017 End: 52-51-9266AeykgehujbGSRVTA [facility] Procedures DateProcedureProcedure DetailPerforming ClinicianStart: 99-26-6587Drkuqorcdmc nuclear antigen antibody any methodSammi Estrada MULTI DISCIPLINED LANGUAGE ANALYST Work Phone: Start: 06-32-8132Ubbgs of free thyroxineSammi Estrada MULTI DISCIPLINED LANGUAGE ANALYST Work Phone: Start: 29-95-2491YLS VITAMIN D 25 OHBrechase Jean Baptiste MD Work Phone: Start: 04-37-8219Srfcj Strep (POC)Start: 10-30-2017 DISCHARGE PATIENTMARCIA [facility]: 78-06-0303JMMZPHO BLOOD #1MARCIA RUSTart: 45-29-2189SHJMGBIJ OXYGEN THERAPY PROTOCOLBENSON HOSPITALCIA [facility]: 53-27-6256MLLALU AND OUTPUTMARCIA [facility]: 05-06-5547WBYSORL BLOOD #1MARCIA [facility]: 77-77-4935OSUL GENERALMARCIA [facility]: 84-36-2993ECWFFHGC OXYGEN THERAPY PROTOCOLBENSON HOSPITALCIA [facility]: 90-64-3532OIERK METABOLIC PANELMARCIA [facility]: 15-21-6337ODR WITH AUTO DIFFERENTIALMARCIA [facility]: 63-88-5379QWHYHQ AND OUTPUTMARCIA RUSTart: 42-75-4223Flqmlqikbni urinalysisBENSON HOSPITALCIA [facility]: 33-84-3483JE W/REFLEX CULTUREBENSON HOSPITALCIA [facility]: 15-20-4166CFVIR CULTURE CLEAN CATCHNovant Health [facility] Center: 29-99-1797DSZUYFVBY MONITORINGYELITZA [facility]: 62-88-2200QNBSWNJ DIET TOLERATED (NURSING COMMUNICATION)YELITZA KARENCuster City: 16-31-4679EFRY CODEYELITZA [facility]: 87-83-8081QIYKBFER OXYGEN THERAPY PROTOCOL YELITZA KARENCuster City: 82-22-4833QKFTGS AND OUTPUTYELITZA [facility]: 10-28-2017 REASON FOR NO MECHANICAL VTE PROPHYLAXISYELITZA [facility]: 26-22-4802VRAWU SIGNS YELITZA [facility]: 17-22-7248RJWICAS STATUS (FROM ED OR OR/PROCEDURAL)YELITZA KARENCuster City: 16-83-8738BGHBQFIE PATIENTYELITZA [facility]: 36-96-9762JR CONSULT TO OB GYNBENSON HOSPITALLOBITO [facility]: 74-32-5780JHCJV METABOLIC PANELYELITZA [facility]: 80-11-8279IOM WITH AUTO DIFFERENTIALBENSON HOSPITALLOBITO [facility]: 26-87-7309WEGELM PERIPHERAL IVYELITZA [facility]: 89-50-4791Xqrelxn examination of Macy Jones Other Hyperlipidemia screeningYelitza Jones Other Plan of Treatment DateCare ActivityDetailAuthorStart: 10-13-2025 End: 12-08-0207Ibquzfr encounter ehoauojow76/04/2025 10:45 AM EST Procedure Visit [facility] [address] [facility] [address] [place] [address] Sammi Estrada, MULTI DISCIPLINED LANGUAGE ANALYST [address] [facility] [address] [id number] D[facility]A [facility] NeurologyStart: 07-15-2025 End: 06-25-5313Jaeiduu encounter procedureNOMS Stacie NeurologyComment on above:ArrivedStart: 92-41-1416Hdaxdsrlj vaccinationInfluenza Vaccine (#1)NOMPaul HealthcareStart: 06-23-2025 End: 05-18-2273Xkkeiuf encounter procedureNOMS SWS NEURStart: 03-24-2025 End: 43-06-1041Mysadbs encounter procedureNOMS SWS NEURComment on above:Arrived Start: 03-24-2025 End: 87-06-0380FTR ANTIBODY ([place])SSA ANTIBODY ([facility]) Lab Routine Cognitive decline Other specified hypothyroidism Autoimmune disease (CMS/HCC) Expected: 03/24/2025 (Approximate), Expires: 03/24/2026[facility] Work Phone: Comment on above:Expected: 03/24/2025 (Approximate), Expires: 03/24/2026Start: 03-24-2025 End: 66-38-0405BVR ANTIBODY ([place])SSB ANTIBODY ([facility]) Lab Routine Cognitive decline Other specified hypothyroidism Autoimmune disease (CMS/HCC) Expected: 03/24/2025 (Approximate), Expires: 03/24/2026NOMS HealthcareComment on above:Expected: 03/24/2025 (Approximate), Expires: 03/24/2026Start: 12-23-2024 End: 94-73-5564Onbyafc encounter wwltiyrhj26/13/2025 1:00 PM EST Office Visit [facility] NEUR [address] [place] [address] [address] Efrain Jean Baptiste MD [address] [facility] [address] [address] [facility] NEURStart: 12-10-2024 End: 44-56-2305Pwdlmlofzi factor [Units/volume] in Serum or PlasmaRheumatoid factor Lab Routine Autoimmune disease (CMS/HCC) Expected: 12/10/2024 (Approximate), Expires: 12/09/2025NONE HealthcareComment on above:Expected: 12/10/2024 (Approximate), Expires: 12/09/2025Start: 12-09-2024 End: 32-07-3017Kgzayza encounter procedureNOMS [facility] NEURComment on above:Arrived Start: 12-09-2024 End: 12-09-2025 reactive protein [Mass/volume] in Serum or PlasmaC-reactive protein Lab Routine Autoimmune disease (CMS/HCC) Expected: 12/09/2024 (Approximate), Expires: 12/09/2025[facility] HealthcareComment on above:Expected: 12/09/2024 (Approximate), Expires: 12/09/2025Start: 12-09-2024 End: 49-67-2927TVQ W Auto Differential panel - BloodCBC and differential Lab Routine Autoimmune disease ([facility]) Expected: 12/09/2024 (Approximate), Ex douglas: 12/09/2025[facility] HealthcareComment on above:Expected: 12/09/2024 (Approximate), Expires: 12/09/2025Start: 12-09-2024 End: 68-88-3538Dksfucjsbcw sedimentation rateSedimentation rate, automated Lab Routine Autoimmune disease ([facility]) Expected: 12/09/2024 (Approximate), Expires: 12/09/2025[facility] HealthcareComment on above:Expected: 12/09/2024 (Approximate), Expires: 12/09/2025Start: 12-09-2024 End: 77-71-8735Qkgalgu Ab [Titer] in Serum by ImmunofluorescenceANA Lab Routine Autoimmune disease ([facility]) Expected: 12/09/2024 (Approximate), Expires: 12/09/2025[facility] Healthcare Work Phone: Comment on above:Expected: 12/09/2024 (Approximate), Expires: 12/09/2025Start: 12-09-2024 End: 02-44-2905YMH ANTIBODY ([facility])SSA ANTIBODY ([facility]) Lab Routine Autoimmune disease ([facility]) Expected: 12/09/2024 (Approximate), Expires: 12/09/2025[facility] HealthcareComment on above:Expected: 12/09/2024 (Approximate), Expires: 12/09/2025Start: 12-09-2024 End: 41-61-0537DFK ANTIBODY ([facility])SSB ANTIBODY ([facility]) Lab Routine Autoimmune disease ([facility]) Expected: 12/09/2024 (Approximate), Expires: 12/09/2025[facility] HealthcareComment on above:Expected: 12/09/2024 (Approximate), Expires: 12/09/2025Start: 10-22-2024 End: 44-57-4501Oqqfeio encounter wsviarotb81/13/2024 10:15 AM EST Procedure Visit [facility] [address] [facility] [address] [place] [address] Sammi Estrada, MULTI DISCIPLINED LANGUAGE ANALYST [address] [facility] [address]ño [address] [place] [address] [facility] NEURStart: 09-16-2024 End: 31-07-796763270174-homlqiwvtmoxev D3 [Mass/volume] in Serum or PlasmaVitamin D 25 hydroxy Total Lab Routine Demyelinating disease of central nervous system (HCC) ([facility]/HCC) Expected: 09/16/2024 (Approximate), Expires: 09/16/2025[facility] HealthcareComment on above:Expected: 09/16/2024 (Approximate), Expires: 09/16/2025Start: 09-16-2024 End: 09-28-5591Okgzljq-Dela Cruz virus VCA, IgGEpstein-Dela Cruz virus VCA, IgG Lab Routine Demyelinating disease of central nervous system (HCC) (CMS/HCC) Expected: 09/16/2024 (Approximate), Expires: 09/16/2025[facility] HealthcareComment on above:Expected: 09/16/2024 (Approximate), Expires: 09/16/2025Start: 09-16-2024 End: 25-36-6789Lveebuc-Dela Cruz virus VCA, IgMEpstein-Dela Cruz virus VCA, IgM Lab Routine Demyelinating disease of central nervous system (HCC) (CMS/HCC) Expected: 09/16/2024 (Approximate), Expires: 09/16/2025[facility] HealthcareComment on above:Expected: 09/16/2024 (Approximate), Expires: 09/16/2025Start: 09-16-2024 End: 41-18-0218ZY Brain WO and W contrast IVMR brain w and wo contrast routine Imaging Routine Chiari malformation type I ([facility]/HCC) Expected: 09/16/2024 (Approximate), Expires: 09/16/2025[facility] Healthcare Work Phone: Comment on above:Expected: 09/16/2024 (Approximate), Expires: 09/16/2025Start: 09-16-2024 End: 01-00-1882Jhnhnnh Ab [Titer] in Serum by ImmunofluorescenceANA Lab Routine Demyelinating disease of central nervous system (HCC) (CMS/HCC) Expected: 09/16/2024 (Approximate), Expires: 09/16/2025NONE HealthcareComment on above: Expected: 09/16/2024 (Approximate), Expires: 09/16/2025Start: 09-16-2024 End: 92-70-2865Aubelay encounter mlvsyumfy48/07/2024 10:20 AM EST Office Visit [facility] [address] [facility] [address] [place] [address] Efrain Jean Baptiste MD [address] [place] [address], [place] [id number] [facility] NE[facility]Start: 08-59-6652Bwuwlylaq vaccinationInfluenza Vaccine (#1)NOM HealthcareComment on above:Postponed from 07/11/2023 (Patient Refused)Start: 07-15-2024 End: 20-19-2762Xhlsjlm encounter qvoeyukdn80/05/2024 1:00 PM EDT Procedure Visit [facility] [address] [facility] [address] [place] [phone] Sammi Estrada, MULTI DISCIPLINED LANGUAGE ANALYST [address] [place] [address], [place] [address] ArrivedNOU.S. [facility] NEURComment on above: ArrivedStart: 17-30-7997Wkhbjlbej vaccinationInfluenza Vaccine (#1)NOM HealthcareStart: 04-01-2024 End: 20-60-9285Pwewidp encounter jptxrqtok86/23/2024 1:00 PM EDT Procedure Visit [facility] [address] [facility] [address] [place] [address] Sammi Estrada, MULTI DISCIPLINED LANGUAGE ANALYST [address] [place] [address], [place] [address] [facility] NEURStart: 01-01-2024 End: 39-78-0113Lsftorf encounter ngihmbuyg86/22/2024 10:30 AM EST Office [facility] [address] [place] [place] [address] Efrain Jean Baptiste MD [address] [facility] [id number] [facility] NEURStart: 12-29-2023 End: 45-13-9490Cpsidboa Fzlqmjy7912/29/2023 1:00 PM EST Clinical Support [facility] [address] [place] [address] [place] [phone] [facility] Start: 27-30-5306Ihfnioiks for malignant neoplasm of breastMammogramNOMS HealthcareStart: 78-07-0014Mobdilsnb vaccinationInfluenza Vaccine (#1)[facility] HealthcareStart: 81-68-4714UN Unspecified body regionPomerene Hospitaltart: 39-58-4596XVQ of headMR head/brain wo/w [facility] Centertart: 35-28-6760Rgfpwxuvu for malignant neoplasm of cervixNOMS HealthcareStart: 26-17-8531Fcgzlpsks for malignant neoplasm of cervixPap Smear [facility] Immunizations Immunization DateImmunizationNotesCare UypblumvCvtahaem72-44-7542hinojrfbf virus vaccine, unspecified formulationJacqueline Graziani MULTI DISCIPLINED LANGUAGE ANALYST Work Phone: [facility] CenterPjosliplwr94-99-2913lcqidbnth virus vaccine, split virus (incl. purified surface antigen)Yelitza Jones Other [employer] Other 182560-70-7971cliviqfar virus vaccine, unspecified formulationOhiohealth09-30-2020influenza, seasonal, injectable, preservative freeJacqueline Graziani MULTI DISCIPLINED LANGUAGE ANALYST Work Phone: [facility] CenterLjrgxulqex42-27-8371yjkerkjfk virus vaccine, unspecified formulationJacqueline Graziani MULTI DISCIPLINED LANGUAGE ANALYST Work Phone: [facility] CenterAesrwinfjh13-66-0798gqkbwewururu polysaccharide vaccine, 23 valentJacqueline Graziani MULTI DISCIPLINED LANGUAGE ANALYST Work Phone: [facility] CenterAdtofhfkqp64-78-1765gaerubtqe B vaccine, adult dosageJacqueline Graziani MULTI DISCIPLINED LANGUAGE ANALYST Work Phone: [facility] CenterVicqlmrsqp92-39-5969wheywfbdw B vaccine, adult dosageJacqueline Graziani MULTI DISCIPLINED LANGUAGE ANALYST Work Phone: [facility] CenterZctfgiullc09-61-4097shfbpyhxb B vaccine, adult dosageJacqueline Graziani MULTI DISCIPLINED LANGUAGE ANALYST Work Phone: [facility] CenterNbxxsqgpxj46-54-1629aeiaupl toxoid, reduced diphtheria toxoid, and acellular pertussis vaccine, adsorbedJacqueline Graziani MULTI DISCIPLINED LANGUAGE ANALYST Work Phone: [facility] Payers DatePayer CategoryPayerPolicy [id number] Health Insurance [id number] [id number]963-02-9958Qxmd [facility] [id number] [id number] [id number] 2.840.1.688986.3.57[id number] 2.840.1.378547.3.57[id number] 2.840.1.885862.3.579.[id number] 2.0.1.055880.3.57[id number] 2.840.1.076483.3.579.[id number] 2..1.759721.3.579.2.90896-43-8550Nveutso7549782 2..1.191207.3.579.2.28821-34-1701Ezhbpyj2596405 2..1.356854.3.579.2.29191-84-2995Iwwxkct5125788 2..1.510656.3.579.2.60244-15-2922Jiwitkf5250482 2..1.350121.3.579.2.89796-31-4223Tterdlt0015223 2..1.569434.3.579.2.65879-25-2866Ivhwtkv0772667 2..1.923790.3.57[id number] 2..1.295672.3.579.[id number] 2..1.791010.3.579.2.276300-45-2835Tegfhmc7507463 2..1.634757.3.579.2.886049-76-6618Rnnbhwm6113941 2..1.295902.3.579.2.52[id number] 2..1.202763.3.579.2.328355-11-6514Znhvvhv0766056 2.16.840.1.270330.3.579.2.308552-06-0485Gcotyjm Health [id number] [id number] 2.16.840.1.480688.3.579.2.593UnknownOhio Health [id number] jo470371-533k-1644-43pa-[id number] 2.16.840.1.456118.19 [id number] 2.16.840.1.2[id number] 2.16.840.1.580[id number] 2.16.840.1.863657.3.579.2.531 Social History DateTypeDetailFacilityTobacco smoking status NHISUnknown if ever smokedKing[facility] Work Phone: Start: 38-77-9677[facility]ai [facility]: 10-30-2023 End: 51-02-7319Qaq Assigned At [facility] [employer] Other Start: 06-09-2023 End: 40-22-7893Takqagp smoking status NHISNever smoked tobaccoNOMS Healthcare Start: 12-67-6528Pfylgkb use and exposureSmokeless tobacco non-userNOMS HealthcareStart: 10-30-2023 End: 80-28-7649Qzbwdxi intakeCurrent drinker of alcohol (finding)[facility] Start: 10-30-2023 End: 42-73-5989Vvkizgn intakeNOMS HealthcareStart: 30-59-8852Xafwvug Comment Caffeine intake: more than 4 cups per day coffee, sodaNOMS HealthcareStart: 81-23-5765Ztsgzv identityIdentifies as female gender (finding)[facility] Start: 05-12-2024 End: 79-12-7268Suqdrowrx beverage intakeEx-drinker (finding)[facility] Start: 23-68-2772IcoVfqejd (finding)[facility]: 06-04-4184ZkrAfgotgNRHMEast [facility] Clinical Notes 12-12-2022 to 09-05-2025 Note Date & YzckWfztWlqhsgwn91-83-0475 Telephone encounter Note* Telephone Encounter - Sammi Estrada NP - 09/05/2025 10:23 AM EDT OARRS reviewed. [facility] CenterSiowaaoind74-32-1920 Miscellaneous Notes* Telephone Encounter - Sammi Estrada NP - 09/05/2025 10:23 AM EDT OARRS reviewed. documented in this encounterRusk Rehabilitation CenterQjtumyhsuv57-18-6806 History of Present illness Narrative* Sammi Estrada [...] with 70% isopropanol. Specialty pharmacy Lot # [id number] Dilution 200 units diluted into 4mL = 5 units per 0.1mL Procedure Procerus 5 units Sous Chef, L 5 units Sous Chef, R 5 units Frontalis, L 10 units [...] without status migrainosus - G43.719 Procedure Codes 92211 Chemodenervation of muscles innervated by facial, trigeminal, [...] of Aimovig,Ajovy, or Emgality by a medical billing service. She agreed to this plan. A prescription [...] care. This clinical note was created utilizing [employer] documentation system. All information has beenthoroughly reviewed, corrected as necessary, and authenticated by the provider to ensure accuracy and completeness. On occasion, [employer] documentation system erroneously drops words or replaces aspoken word with a similar sounding word. Please notify with any questions or concerns regarding this clinical note. documented in this [facility]07-25-2025 Telephone encounter Note* Telephone Encounter - Sammi Estrada NP - 06/03/2025 8:25 AM EDT Resent Adderall as patient leaving for [employer]. [id number] Miscellaneous Notes* Telephone Encounter - Sammi Estrada NP - 06/03/2025 8:25 AM EDT Resent Adderall as patient leaving for [employer]. documented in this [facility]07-24-2025 Telephone encounter Note* Telephone Encounter - Sammi Estrada NP - 06/02/2025 12:18 PM EDT OARRS reviewed. [facility] [id number] Miscellaneous Notes* Telephone Encounter - Sammi Estrada NP - 06/02/2025 12:18 PM EDT OARRS reviewed. documented in this [facility]06-29-2025 Telephone encounter Note* Telephone Encounter - Sammi Estrada NP - 05/08/2025 12:27 PM EDT OARRS reviewed. [facility] [id number] Miscellaneous Notes* Telephone Encounter - Sammi Estrada NP - 05/08/2025 12:27 PM EDT OARRS reviewed. documented in this [facility]05-29-2025 Telephone encounter Note* Telephone Encounter - Sammi Estrada NP - 04/07/2025 9:16 AM EDT OARRS reviewed. [facility] CenterDrvuslkgjs40-07-1510 Miscellaneous Notes* Telephone Encounter - Sammi Estrada NP - 04/07/2025 9:16 AM EDT OARRS reviewed. documented in this [facility]05-15-2025 History of Present illness Narrative* Sammi Estrada [...] TRANSVERSE 12/16/2016 & tube removal HYSTERECTOMY 10/2017 [place] [facility] Procedure:Clomid 50 mg i daily;Disease:Infertility [...] Depression: Not at risk (02/11/2021) Received from [facility] PHQ-2 PHQ-2 score: 1 REVIEW OF [...] reflexes: Sunday's absent. Ankle clonus absent. Coordination Zgbxin-oz-qmqn, rapid alternating movements and xvbw-wu-ommj normal bilaterally without dysmetria. Gait Normal casual, [...] with 70% isopropanol. Specialty pharmacy Lot # [id number] Dilution 200 units diluted into 4mL = 5 units per 0.1mL Procedure Procerus 5 units Sous Chef, L 5 units Sous Chef, R 5 units Frontalis, L 10 units [...] without status migrainosus - G43.719 Procedure Codes 08332 Chemodenervation of muscles innervated by facial, trigeminal, [...] anticonvulsants, OTCs, NSAIDs, triptans. documented in this encounterRusk [facility] [id number] History of Present illness Narrative* Sammi Estrada, MULTI DISCIPLINED LANGUAGE ANALYST - 12/09/2024 3:15 PM EST Images from [...] TRANSVERSE 12/16/2016 & tube removal HYSTERECTOMY 10/2017 [place] [facility] Procedure:Clomid 50 mg i daily;Disease:Infertility [...] Depression: Not at risk (02/11/2021) Received from [facility], [facility] PHQ-2 PHQ-2 score: 1 REVIEW OF [...] reflexes: Sunday's absent. Ankle clonus absent. Coordination Rehysx-cc-zexe, rapid alternating movements and ogoh-ia-vfvx normal bilaterally without dysmetria. Gait Normal casual, [...] with 70% isopropanol. Specialty pharmacy Lot # [id number] Dilution 200 units diluted into 4mL = 5 units per 0.1mL Procedure Ftaparlf7uiyyp Sous Chef, O4ysiml Sous Chef, B2eyvwe Frontalis, B06kenog(2 sites) Frontalis, I07okvhg(2 sites) Temporalis, L 20 units (4 sites) Temporalis, R.20units(4 sites) Occipitalis, P03fmjzc(3 sites) Occipitalis, T54aupsm(3 sites) Paraspinalis cervicis, V00ymwmf(2 sites) Paraspinalis cervicis, F44hdmdf(2 sites) Trapezius, A97ztngc(3 sites) Trapezius, C13mvxpr(3 sites) Ruwbf72lweck(9 sites, see below) TOTAL UNITS OFLXYABF400 WASTED0 The remaining 45 units were injected [...] without status migrainosus - G43.719 Procedure Codes 14889 Chemodenervation of neck muscles, bilateral: Modifiers: 50 45289 Destroy Nerve, Face Muscle, Modifiers: 50 , [...] patient, and coordinating care. documented in this encounterRusk [facility] CenterBjlhyswzov42-10-2626 History of Present illness Narrative* Efrain Jean [...] [place],. [place] [facility] [place] 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 Post-nasal drainage 2012 Proteinuria since 2011 Varicella zoster Past Surgical History: Procedure Laterality Date SECTION, LOW TRANSVERSE 2013 SECTION, LOW TRANSVERSE 12/16/2016 & tube removal HYSTERECTOMY 10/2017 [place] [facility] Procedure:Clomid 50 mg i daily;Disease:Infertility [...] Depression: Not at risk (02/11/2021) Received from [facility], [facility] PHQ-2 PHQ-2 score: 1 REVIEW OF [...] in all four extremities, including at least c t tech, finger abductors, biceps, triceps, deltoid, toe flexors [...] [place] brain w [place] [facility] [place] topiramate (Topamax) 25 MG tablet; Take [...] Follow up 3 months. documented in this [facility]09-17-2024 Telephone encounter Note* Telephone Encounter - Sammi Estrada NP - 07/27/2024 3:27 PM EDT Sent 30 mg IR [facility] [id number] Miscellaneous Notes* Telephone Encounter - Sammi Estrada NP - 07/27/2024 3:27 PM EDT Sent 30 mg IR * Telephone Encounter - Sammi Estrada NP - 07/27/2024 3:05 PM EDT Patient calls and her medication Adderall is on delay the 30 mg XR. If she does not take this medication she is significantly exhausted, fatigue is severely debilitating. documented in this [facility]09-17-2024 Telephone encounter Note* Telephone Encounter - Sammi Estrada NP - 07/27/2024 3:05 PM EDT Patient calls and her medication Adderall is on delay the 30 mg XR. If she does not take this medication she is significantly exhausted, fatigue is severely debilitating. [facility] CenterOndqvyppye08-05-0846 Telephone encounter Note* Telephone Encounter - Sammi Estrada NP - 07/26/2024 8:26 AM EDT OARRS reviewed. [facility] [id number] Miscellaneous Notes* Telephone Encounter - Sammi Estrada NP - 07/26/2024 8:26 AM EDT OARRS reviewed. documented in this encounterRusk Rehabilitation [id number] History of Present illness Narrative* Sammi Estrada [...] Medical History: Diagnosis Date Acute tonsillitis Depression ([facility]) Electrolyte imbalance 2004 H/O section repeat c/s Infertility, female Kidney disease Migraine ([facility]) Positive test for Ujlius-Dela Cruz virus (EBV) 03/2019 positve Post depression ([facility]) used no meds lasted about 1 yr. Post-nasal drainage 2012 Proteinuria since 2011 Varicella zoster Past Surgical History: Procedure Laterality Date SECTION, LOW TRANSVERSE 2012 SECTION, LOW TRANSVERSE 12/16/2016 & tube removal HYSTERECTOMY 10/2017 [place] [facility] Procedure:Clomid 50 mg i daily;Disease:Infertility [...] Depression: Not at risk (02/11/2021) Received from [facility], [facility] PHQ-2 PHQ-2 score: 1 REVIEW OF [...] reflexes: Sunday's absent. Ankle clonus absent. Coordination Fxbtly-rj-jbsq, rapid alternating movements and cxfw-th-fkwh normal bilaterally without dysmetria. Gait Normal casual, [...] with 70% isopropanol. Specialty pharmacy Lot # [id number] Dilution 200 units diluted into 4mL = 5 units per 0.1mL Procedure Procerus 5 units Sous Chef, L 5 units Sous Chef, R 5 units Frontalis, L 10 units [...] without status migrainosus - G43.719 Procedure Codes 07711 Chemodenervation of neck muscles, bilateral: Modifiers: 50 69414 Destroy Nerve, Face Muscle, Modifiers: 50 , 51 J0585 Botulinum toxin a per unit, Units: 200.00 Follow Up 2.5 months appointment; 3 months BTX ASSESSMENT AND PLAN: Diagnoses and all orders for this visit: Intractable chronic migraine without aura and without status migrainosus (CMS/HCC) - Ambulatory Referral for Botox; Future Autoimmune disease ([facility]) - Naltrexone HCl powder; Take 1 mg [...] 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 I will continue botox treatment for chronic migraines. She needs to restart LDN for autoimmune symptoms, inflammatory pain. This was discussed with patient, all questions answered. Total time 20 minutes spent reviewing records, performing medically appropriate exam, counseling , education, ordering medication, tests, and/or procedures, documenting health information into the health record, communicating results to the patient, and coordinating care. documented in this encounterRusk Rehabilitation CenterAcwibsfzqr15-81-0686 History of Present illness Narrative* Sammi Estrada [...] work. 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 Post-nasal drainage 2012 Proteinuria since 2011 Varicella zoster Past Surgical History: Procedure Laterality Date SECTION, LOW TRANSVERSE 2012 SECTION, LOW TRANSVERSE 12/16/2016 & tube removal HYSTERECTOMY 10/2017 [place] [facility] Procedure:Clomid 50 mg i daily;Disease:Infertility [...] with 70% isopropanol. Specialty pharmacy Lot # [id number] Dilution 200 units diluted into 4mL = 5 units per 0.1mL Procedure Procerus 5 units Sous Chef, L 5 units Sous Chef, R 5 units Frontalis, L 10 units [...] without status migrainosus - G43.719 Procedure Codes 63391 Chemodenervation Of Muscle Neck, Modifiers: 50 24277 Destroy Nerve, Face Muscle, Modifiers: 50 , 51 J0585 Botulinum toxin a per unit, Units: 200.00 A4209 SYRINGE W/NEEDLE STERILE 5 CC/GT EA A4206 1 CC sterile syringe&needle, Units: 4.00 A4216 Sterile water/saline, 10 ml Follow Up 2.5 months appointment; 3 months BTX documented in this [facility]01-05-2024 Evaluation note* Encounter Date Diagnosis Assessment Notes Treatment Notes Treatment Clinical Notes Nov, Chest congestion (ICD-10 - R09.8 9) Nov,Influenza B (ICD-10 - J10.1)Influenza: adult home care material was printed Drink plenty fluids, get plenty of rest. Take Tylenol or Motrin for aches pains or fevers. Follow-up with your family physician if no improvement in 2 to 3 days [email or web address] Other 12-26-2023 Evaluation note* Encounter Date Diagnosis Assessment Notes Treatment Notes Treatment Clinical Notes Oct, Bronchitis (ICD-10 - J40) Take antibiotic as directed. If develop wheezing, chest tightness, itching, bad cough, blue skin color, seizures, swelling of face, lips, tongue, or throat report to ED. [email or web address] Other 11-30-2023 Evaluation note* Encounter Date Diagnosis [...] Sep,cute right otitis media (ICD-10 - H66.91) [email or web address] Other 09-19-2023 Evaluation note* Encounter Date Diagnosis Assessment Notes Treatment Notes Treatment Clinical Notes Jul, Wellness examination (ICD-10 - Z 00.00) Not a wellness exam, but requests wellness labs done for this year. Jul,isorder of right eustachian tube (ICD-10 - H69.91)Advised finishing steroids. Trial of lower dose sudafed with flonase, which she has not started. NoOM seen. Pt understands [email or web address] Other 09-06-2023 Evaluation note* Encounter Date Diagnosis Assessment Notes Treatment Notes Treatment Clinical Notes Jul, Pharyngitis, unspecified etiolog y (ICD-10 - J02.9) [email or web address] Other 05-01-2023 Evaluation note* Encounter Date Diagnosis [...] she easily has this problem on antibiotics. [email or web address] Other 02-06-2023 Evaluation note* Encounter Date Diagnosis Assessment Notes Treatment Notes Treatment Clinical Notes Dec, Acute non-recurrent maxillary si nusitis (ICD-10 - J01.00) [email or web address] Other 02-02-2023 Evaluation note* Encounter Date Diagnosis Assessment Notes Treatment Notes Treatment Clinical Notes Dec, Acute non-recurrent maxillary si nusitis (ICD-10 - J01.00) Testing for influenza as her negative COVID tests were not conclusive at home. Patient prefers to wait. Strongly suspect she has strep throat. Updated medication and allergy list in chart. 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 hyperactivity Attention deficit disorder without mention of hyperactivity documented [facility] this encounter [facility]* Diagnosis Onset Date Resolution Status Right otitis media noneactiveSore throatnoneactive [facility] Work Phone: Evaluation note* Diagnosis Intractable [...] CKD (chronic kidney disease) acuteNovember 2023 10:24am [facility] Work Phone: Evaluation note* Diagnosis ADD [...] disease)Medical HistoryanxietyMedical History migraine headacheSurgical HistoryC section, k5Vuekhyku Historybilateral jrbytrnrlhwjs1712Cadbesqo Historykidney akmcse11/2017Surgical History hysterectomyHospitalization Historychild birthHospitalization Historylow k+ [id number] [facility] [employer] Other History general Narrative - ReportedNortWayne Memorial Hospital [employer] [facility] [employer] Other Summary Purpose Family History Relationship Condition [...] without status migrainosus (CMS/HCC) Sammi Estrada NP [address] [place] [address] [place] [address] Sammi Estrada NP [address] [place] [address] Referral IDStatusReasonStart DateExpiration DateVisits RequestedVisits [id number] Review Additional Source Comments INFORMATION SOURCE (unrecogn ized section and content) DATE CREATED AUTHOR 05/05/2018 [facility] DATE CREATED AUTHOR AUTHOR'S ORGANIZ ATION 02/13/2021 [facility] DATE CREATED AUTHOR AUTHOR'S ORGANIZ ATION 08/19/2021 [facility] DATE CREATED AUTHOR AUTHOR'S ORGANIZ ATION 12/03/2021 [facility] DATE CREATED AUTHOR AUTHOR'S ORGANIZ ATION 10/12/2024 [facility] DATE CREATED AUTHOR AUTHOR'S ORGANIZ ATION 07/17/2025 [facility] EPIC Care Teams (unrecognized sec tion and content) Team Status: Inactive Member Role Status Dates Yelitza Jones MD Primary Care Provider Active Sammi Estrada APRN MULTI DISCIPLINED LANGUAGE ANALYST-CAttending ProviderActive Team Status: Active Member Role Status [...] Date Yelitza Jones MD [address] [facility] [place] [phone] PCP - GeneralFamily Seqhpfqj38/7/24Team MemberRelationshipSpecialtyStart DateEnd Date Yelitza Jones MD [address] [facility] [place] [address] PCP - Generalmi Eznirwzz95/7/24 Team Status: Inactive Member Role Status Dates Yelitza Jones MD Primary Care Provide r, Attending Provider Active Start: September 17, 2024 End: September 17, 2024Team MemberRelationshipSpecialtyStart DateEnd Date Yelitza Jones MD [address] [facility] [place] [address] [facility]/16/24Team MemberRelationshipSpecialtyStart DateEnd Date Yelitza Jones MD [address] [facility] [place] [address] [facility] - [facility] Clggkcga35/7/24Team MemberRelationshipSpecialtyStart DateEnd Date Yelitza Jones MD [address] [facility] [place] [address] PCP - GeneralFami Jynrlmnw37/7/24Team MemberRelationshipSpecialtyStart DateEnd Date Yelitza Jones MD [address] [facility] [place] [address] [facility] - [facility] Xcxtcyze60/7/24Team MemberRelationshipSpecialtyStart DateEnd Date Yelitza Jones MD [address] [facility] [place] [address] [facility] - [facility] Yfgwxpte65/7/24Team MemberRelationshipSpecialtyStart DateEnd Date Yelitza Jones MD [facility] - [facility] Nvhcyhyy22/7/24Team MemberRelationshipSpecialtyStart DateEnd Date Yelitza Jones MD [facility] Cdtdxtfm19/7/24Team MemberRelationshipSpecialtyStart DateEnd Date Yelitza Jones MD PCP - Generalmily Plvdkedq40/7/24Team MemberRelationshipSpecialtyStart DateEnd Date Yelitza Jones MD PCP - [facility] Pdxxyyic24/7/24Team MemberRelationshipSpecialtyStart DateEnd Date Yelitza Jones MD PCP - [facility] Cvekxipn42/7/24Team MemberRelationshipSpecialtyStart DateEnd Date Yelitza Jones MD PCP - [facility] Nfqthbyd45/7/24Team MemberRelationshipSpecialtyStart DateEnd Date Yelitza Jones MD [facility] - [facility] Yvawpcax06/7/24Team MemberRelationshipSpecialtyStart DateEnd Date [facility] Quenubhe14/7/24Team MemberRelationshipSpecialtyStart DateEnd Date Yeiltza Jones MD PCP - Generalmily Gbnvboke60/7/24Team MemberRelationshipSpecialtyStart DateEnd Date Yelitza Jones MD PCP - [facility] Dvnaaggk52/7/24 Goals (unrecognized section and content) Goals may be documented in a n alternate sectionNo InformationNo InformationNo InformationNo InformationNo InformationNo InformationNo InformationNo InformationNo InformationNo InformationGoals may be documented in an alternate sectionGoals may be documented in an alternate sectionGoals may be documented in an alternate section REASON FOR VISIT (unrecogniz ed section and content) ReasonOnset DateCommentsMed Dezibn624ReasonOnset DateCommentsMed Refill 4ReasonOnset DateCommentsMed Wcpbbf234ReasonOnset DateComments Med Hgulfw784ReasonOnset DateCommentsMed Clatbi024ReasonOnset Date CommentsMed Axgtde2812/05/2024ReasonOnset DateCommentsMed Fnsbpp2901/06/2025Reason Onset DateCommentsMed Kjcujj0002/08/2025ReasonOnset DateCommentsMed Refill 03/10/2025ReasonOnset DateCommentsMed Abimah3804/07/2025ReasonOnset DateComments Med Jsqzgh5605/06/2025ReasonOnset DateCommentsMed Yalbis8106/01/2025ReasonComments Med RefillReasonOnset DateCommentsMed Mbhvye6007/04/2025ReasonOnset DateComments Med Zzvdjg9108/02/2025ReasonOnset DateCommentsMed Imteon1609/04/2025 FOR RECORDS PERTAINING TO PATIENTS WHO ARE [...] BE BASED ON THE PRIMARY CLINICAL RECORDS. [facility]. provides no warranty or guarantee of the accuracy or completeness of information in this document.
[2025-09-20 15:47] LABS: Anion Gap 8.6; Blood Urea Nitrogen 11.0 mg/dL (7.0-18.0); Calcium 8.8 mg/dL (8.5-10.1); Carbon Dioxide 29.1 mmol/L (21.0-32.0); Chloride 101 mmol/L (98-107); Estimated GFR (African America >60 (>=60 mL/min/1.73m^2); Estimated GFR (Non-African Ame >60 (>=60 mL/min/1.73m^2); Glucose 89 mg/dL (74-106); Potassium 3.7 mmol/L (3.5-5.1); Sodium 135 mmol/L (136-145)
[2025-09-20 15:50] LABS: Microalbum Creatinine Ratio Ur 63.0 mg/g (0.0-29.9)
[2025-09-21 04:07] LABS: FSH 5.2 mIU/mL (.)
== END 2025-09-20 14:58 | disposition home or self-care (01) ==
LOC: LAB 15:01
PROVIDERS: PCP Family Medicine; Visit Provider Family Medicine
DX: N95.9 Unspecified menopausal and perimenopausal disorder (principal); N18.1 Chronic kidney disease, stage 1; G62.9 Polyneuropathy, unspecified; G37.9 Demyelinating disease of central nervous system, unspecified; G93.5 Compression of brain; M35.9 Systemic involvement of connective tissue, unspecified; E55.9 Vitamin D deficiency, unspecified
CPT/HCPCS: 36415; 80048; 82043; 82570; 82652; 82670; 83001; 83002; 84403; 86038; 86663

== ENCOUNTER 2025-09-20 15:06 | Outpatient (OUT) | payer BC, SELFPAY ==
--- OUTSIDE RECORDS SUMMARY | 2020-12-21 06:30 | XMS_ITS | Continuity of Care Document ---
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 [address] [place], [place], [id number], . tel:[phone] [facility], [address], [place], [id number], tel:[phone] COVID ECHD No Information Prieto Couch. [address] [place], [place], [id number], . tel:[phone] Family History Family Member Type Diagnosis Age At Onset No Information Immunizations Vaccine Date Status Comments Moderna COVID administered Source: New Im munization Record Moderna COVID administered Source: New Im munization Record Payers Payer name Insurance type Covered constitution party ID Authoriza tion(s) [facility] CI [id number] [facility] CI [id number] [facility] CI [id number] Social History Type Description Quantity Date Captured [...]
--- OUTSIDE RECORDS SUMMARY | 2025-09-20 15:12 | XMS_ITS | CCD ---
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 Name Role Phone YELITZA JONES Unavailable Unavailable [...] Primary Care Unavailable TERRI CURRY Admitting Unavailable [place], DR DIANA Beckwith Consulting Unavailable TERRI CURRY [...] Care Provider UnavailMD Umberto Bruce Attending Provider [phone] Yelitza Jones MD Primary Care Provider [phone] Umberto Jung Admitting Unavailable Umberto Jung Attending [...] of OnsetReaction(s) Facility (1 source)NSAIDsDrug allergy (disorder)[facility] (20 sources)NSAIDsPropensity to adverse vmfyfifgl81-57-1171VltyzhlLdomp indico Other (11 sources)PenicillinDrug AllergyHabersham Medical CenterReward Hunt, Inc[employer] Other (20 sources)SUMAtriptanDrug Orzkoid55-57-5442VkhgrjuTrumbull Memorial Hospital (20 sources)metroNIDAZOLEDrug Hrghiwf34-07-3928KtlsykpTrumbull Memorial HospitalComment on above:Onset Date: 01/09/2018 (5 sources)PseudoephedrineDrug Yfhsktp12-56-1428MjdsiolXyleo indico Other (1 source)Allergies ReconciledPropensity to adverse reactionsOzarks Community Hospital indico Other (1 source)patient allergy list reviewed by nurse or physiciaPropensity to adverse dwesyoorv37-72-1523Eqednwj:[facility] indico Other (20 sources)AmoxicillinDrug Gnpjmnq03-95-4257MybuWPLG Healthcare (4 sources)Penicillins; Translations: [Penicillins]Allergy to substance 82-83-2226QvofqZqeprygngRegional Medical Center (4 sources)NSAIDS (Non-Steroidal Anti-Inflamma; Translations: [NSAIDS (Non- Steroidal Anti-Inflamma]Allergy to draocjabb76-07-9342Eugfffw Reaction, kidney diseaseDiley Ridge Medical Center (1 source)metroNIDAZOLEDrug Gqjekff79-75-0340ZjwtvwhirDiley Ridge Medical Center Repository (1 source)SUMAtriptanDrug Clvbupe17-19-4945RpkhgfdtyDiley Ridge Medical Center Repository Medications Current Medications MedicationDrug Class(es)DatesSig (Normalized)Sig (Original)[id number] 200 actuat albuterol 0.09 mg/actuat metered dose inhaler (2 sources)beta2-Adrenergic AgonistStart: 30-19-6731pqtc 1 puff(s) by inhalation every six hours as needed for wheezingalbuterol HFA 90 mcg/act inhaler INHALE 1 PUFF EVERY 6 HOURS NEEDED FOR SHORTNESS OF BREATH OR WHEEZING 0 10/10/2023 ActiveALPRAZolam 0.25 mg oral tablet (2 sources)BenzodiazepineStart: 21-19-3999hnnl 1 tablet by mouth twice daily as neededALPRAZolam 0.25 MG 1 tablet Orally bid prn for 10 days May, Active amphetamine aspartate 7.5 mg / amphetamine sulfate 7.5 mg / dextroamphetamine saccharate 7.5 mg / dextroamphetamine sulfate 7.5 mg oral tablet (20 sources)Central Nervous System StimulantStart: 12-06-2024 End: 07-84-8695xkbj 1 tablet by mouth once dailyamphetamine-dextroamphetamine (Adderall) 30 MG tablet Indications: 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 Take 1 tablet (30 mg) by mouth Daily 30 tablet 09/05/2025 10/05/2025 ActiveStart: 07-27-2024 End: 96-19-7517dmju 1 tablet by mouth once dailyamphetamine-dextroamphetamine (Adderall) 30 MG tablet Indications: 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 Take 1 tablet (30 mg) by mouth Daily 30 tablet 10/27/2024 11/26/2024 ActiveStart: 07-26-2024 End: 13-75-3462usfb 1 capsule by mouth every twenty-four hours in the morning amphetamine-dextroamphetamine XR (Adderall XR) 30 MG 24 hr capsule Indications: ADD (attention deficit disorder) without hyperactivity Take 1 capsule (30 mg) by mouth in the morning. Do not crush or chew.. 30 capsule 07/26/2024 07/27/2024 DiscontinuedStart: 06-24-2024 End: 95-44-7733czty 1 capsule by mouth every twenty-four hours in the morning amphetamine-dextroamphetamine XR (Adderall XR) 30 MG 24 hr capsule Indications: ADD (attention deficit disorder) without hyperactivity Take 1 capsule (30 mg) by mouth in the morning. Do not crush or chew.. 30 capsule 06/24/2024 07/23/2024 Discontinued (Reorder)Start: 12-01-2023 End: 31-20-7522qbzh 1 capsule by mouth every twenty-four hours in the morning amphetamine-dextroamphetamine XR (Adderall XR) 30 MG 24 hr capsule Indications: ADD (attention deficit disorder) without hyperactivity Take 1 capsule (30 mg) by mouth in the morning. Do not crush or chew.. 30 capsule 0 12/01/2023 12/25/2023 DiscontinuedAtogepant (Qulipta) 60 MG tablet (2 sources)Start: 12-09-2024 End: 66-27-8194kpar 1 tablet by mouth once dailyAtogepant (Qulipta) 60 MG tablet Indications: Intractable chronic migraine without aura and withoutstatus migrainosus (CMS/HCC) Take 1 tablet by mouth Daily 30 tablet 11 12/09/2024 01/08/2025 Activedexamethasone 2 mg oral tablet (4 sources)CorticosteroidStart: 68-54-0081xxvGBYGEqugih (Decadron) 2 MG tablet Indications: Demyelinating disease of central nervous system (HCC) (CMS/HCC) 2mg 3 pills po X3 days,2 pills po daily X3 days , then 1 pill po daily X3 days then stop 9 days 18 pills 18 tablet 1 07/22/2023 Active1 ml erenumab-aooe 140 mg/ml auto-injector (3 sources)Start: 07-19-2025 End: 33-66-8599plbsox 1 mL by subcutaneous injection onceerenumab (Aimovig) [...] ActiveModafinil ActiveNaltrexone (19 sources)Opioid AntagonistStart: 07-15-2024 End: 79-37-9800upmu 1 mg by mouth once dailyNaltrexone HCl powder Indications: Autoimmune disease (CMS/HCC) Take 1 mg by mouth Daily 30 g 07/15/2024 08/14/2024 ActiveStart: 02-02-2024 End: 1983wzvo 1 tablet by mouth once dailyNaltrexone 50 mg tablet Discontinued 50 MG PO Daily February 01, 2024 11:00pm September 17, 2024 10:40am take 3 mg by mouth in the morningnaltrexone (Depade) 50 MG tablet Take 3 mg by mouth in the morning. 0 ActiveNaltrexone Activesertraline 50 mg oral tablet (20 sources)Serotonin Reuptake InhibitorStart: 02-02-2024 End: 28-20-9384blql 1 tablet by mouth once dailysertraline (Zoloft) 50 MG tablet Indications: Depression, unspecified depression type Take 1 tablet(50 mg) by mouth Daily 90 tablet 3 12/05/2024 12/05/2025 ActiveStart: 96-58-8933biwhbuximi (Zoloft) 50 MG tablet Indications: Migraine, unspecified, not intractable, without status migrainosus (CMS/HCC) TAKE 1 AND 1/2 TABLETS BY MOUTH EVERY DAY 135 tablet 2 05/09/2023 Activetake 1 tablet by mouth every twenty-four hours Zoloft 25 MG 1 tablet Orally Once a day Activetopiramate 25 mg oral tablet (14 sources)Start: 10-09-2024 End: 40-71-8534rtja 1 tablet by mouth in the morningtopiramate (Topamax) 25 MG tablet Indications: Chiari malformation type I (CMS/HCC) , Chronic migraine without aura, not intractable, without status migrainosus (CMS/HCC) Take 1 tablet (25 mg) by mouth in the morning and 1 tablet (25 mg) before bedtime. 180 tablet 3 10/09/2024 03/29/2025 DiscontinuedStart: 72-70-3744qlwh 1 tablet by mouth once dailyTopiramate (Topamax) 25 mg tablet Active 25 MG PO Daily September 17, 2024 12:00am Completed/Discontinued Medications MedicationDrug Class(es)DatesSig (Normalized)Sig (Original)azithromycin 250 mg oral tablet (15 sources)Macrolide AntimicrobialStart: 02-11-2024 End: 37-77-7812huxb 2 tablets by mouth once daily, then take 1 tablet by mouth once dailyAzithromycin (Zithromax Z-Alexy) 250 mg tablet Discontinued 250 MG PO Daily 04 14February 10, 2024 11:00pm September 17, 2024 10:40am take 2 tabs today and 1 daily for the next 4 daysStart: 34-32-2117Jvabpucyjbqn 250 MG as directed Orally 2 tabs po today, then 1 tab daily x 4 more days for 5 Oct, Active Start: 44-06-5201Jowzz: 22-20-1761Pvxokrqfudbt 250 MG as directed Orally 2 tabs po today, then 1 tab daily x 4 more days for 5 Dec, Active onabotulinumtoxina 200 unt injection (20 sources)Acetylcholine Release InhibitorStart: 07-15-2025 End: 61-43-6813fckttjqjjobzyjgaqH (Botox) injection 200 UnitsStart: 07-15-2025 End: 26-06-4505gazfou 200 [IU] by intramuscular injection hpkf069 Units, Intramuscular, Once, On Fri07/15/25 at 1300, For 1 dose, Charging context for this clinic-administered medication: Medically Necessary/InsuranceStart: 03-24-2025 End: 88-99-7114sjwghnwrfubthecfpQ (Botox) injection 200 UnitsStart: 03-24-2025 End: 89-02-5321hclfjp 200 [IU] by intramuscular injection qwng647 Units, Intramuscular, Once, On Fri03/24/25 at 1600, For 1 dose, Charging context for this clinic-administered medication: Medically Necessary/InsuranceStart: 12-09-2024 End: 02-56-5313fchfncybutldespojF (Botox) injection 200 UnitsStart: 12-09-2024 End: 65-32-8469fxtciw 200 [IU] by intramuscular injection rsmq450 Units, Intramuscular, Once, On Fri12/09/24 at 1530, For 1 dose, Charging context for this clinic-administered medication: Medically Necessary/InsuranceStart: 07-15-2024 End: 89-88-2532thnwuizxycgenarjjD (Botox) injection 200 UnitsStart: 07-15-2024 End: 76-49-7869pscycj 200 [IU] by intramuscular injection emzx790 Units, Intramuscular, Once, On Fri07/15/24 at 1315, For 1 dose, Charging context for this clinic-administered medication: Medically Necessary/InsuranceStart: 03-17-2024 End: 79-72-3362Wwciw 200u vial IJ Soln 200 units injection Indications: Intractable chronic migraine without aura and without status migrainosus DIRECTED 155 UNITS INJECTION EVERY 90 DAYS 1 each 3 06/15/2025 ActiveStart: 12-25-2023 End: 72-57-4452luemykvuojqifhuwjM (Botox) injection 200 UnitsBotox 200 units injection DIRECTED 155 UNITS INJECTION EVERY 90 DAYS 0 Activecyclobenzaprine hydrochloride 10 mg oral tablet (2 sources)Muscle RelaxantStart: 05-94-0605ivlr 1 tablet by mouth three times daily as needed for muscle spasmsCyclobenzaprine HCl 10 MG 1 tab(s) Orally 3 times a day prn muscle spasms Jul, Not-Takingfluconazole 150 mg oral tablet (7 sources)Azole AntifungalStart: 57-96-6465ygdf 1 tablet by mouth once as neededDiflucan 150 MG 1 tablet Orally once for 10 days March, Not-Taking/PRNStart: 06-44-3118qkyxzdphnrqwjqtv dimesylate 40 mg oral capsule (12 sources)Central Nervous System StimulantStart: 02-02-2024 End: 59-94-3453zgpi 1 capsule by mouth once daily in the morningLisdexamfetamine 40 mg capsule Discontinued 1 CAP PO Daily February 01, 2024 11:00pm February 100:22am FreeTextSi capsule in the morning Orally Once a day; Note: Source Status: Taking; Provider: Linda Moran ( )Start: 12-25-2023 End: 74-65-7690fwzu 1 capsule by mouth in the morningVyvanse 60 MG capsule Indications: ADD (attention deficit disorder) without hyperactivity Take 1 cap iglesia (60 mg) by mouth in the morning. 30 capsule 0 12/25/2023 01/24/2024 Active Start: 11-19-2023 End: 95-32-9318jkoy 1 capsule by mouth in the morninglisdexamfetamine (Vyvanse) 40 MG capsule Indications: ADD (attention deficit disorder) without hyper activity Take 1 capsule (40 mg) by mouth in the morning. 30 capsule 0 11/19/2023 12/25/2023 Discontinuedtake 1 capsule by mouth every twenty-four hoursVyvanse 40 MG 1 capsule in the morning Orally Once a day ActivemethylPREDNISolone 4 mg oral tablet (9 sources)CorticosteroidStart: 98-03-3864ggvdsyQDSNNDWtfygj 4 MG as directed Orally for 6 days March, Not-Taking/PRNStart: 99-81-9867Mazhun 4 MG as directed Orally as directed for 6 days Jul, Not-Takingondansetron 4 mg disintegrating oral tablet (2 sources)Serotonin-3 Receptor AntagonistStart: 10-10-2023 End: 11-87-5246cnefhlpbcmy ODT (Zofran-ODT) 4 MG disintegrating tablet DISSOLVE 1 TABLET ON THE TONGUE EVERY 6 HOURS NEEDED FOR NAUSEA./ VOMITING 0 10/10/2023 12/25/2023 DiscontinuedSerdexmethylphen-Dexmethylphen (3 sources)Start: 02-11-2024 End: 42-54-7768Zvkcwotxswbyqrow-Dexmethylphen (Azstarys) 26.1 mg- 5.2 mg capsule Discontinued 1 TAB PO Every morning February 10, 2024 11:00pm September 17, 2024 10:41amStart: 63-27-1701Jwchypedbypojjmi-Dexmethylphen (Azstarys) 26.1 mg- 5.2 mg capsule Active 1 TAB PO Every morning February 11, 2024 12:00amtriamcinolone acetonide 40 mg/ml injectable suspension (11 sources)CorticosteroidStart: 65-06-6287Pngoxhu-40 Jul, 40 mgStart: 98-35-1763Xtpjdfb (2 sources)Ubrelvy Not-Takingubrogepant 100 mg oral tablet (20 sources)Start: 84-16-7491Slpyaspwfq (Ubrelvy) 100 mg tablet Active 100 MG PO .prn September 17, 2024 12:00amStart: 08-19-2024 End: 03-86-3909lusz 1 tablet by mouth onceUbrogepant (Ubrelvy) 100 MG tablet Indications: Intractable chronic migraine without aura and without status migrainosus Take 1 tablet by mouth if needed (1 po onset migraine may repeat in 2 hours max 200 mg per dya) 16 tablet 11 06/01/2025 09/04/2025 Discontinued (Reorder)Start: 03-19-2024 End: 34-14-0877Afqfsqg 100 MG tablet 03/19/2024 08/19/2024 Discontinued (Reorder) Problems Active Problems Problem ClassificationProblemDateDocumented DateEpisodic/ChronicAnxiety disorders (1 source)Generalized anxiety disorder; Translations: [Generalized anxiety disorder]ChronicChronic kidney disease (13 sources)Chronic kidney disease; Translations: [Chronic kidney disease, unspecified]89-94-4787HjajxnjTorhbea obstructive pulmonary disease and bronchiectasis (1 source)Bronchitis, not specified as acute or chronicEpisodicDisorders of lipid metabolism (1 source)Hyperlipidemia; Translations: [Hyperlipidemia, unspecified]Chronic Disorders usually diagnosed in infancy, childhood, or adolescence (20 sources)Attention deficit hyperactivity disorder, predominantly inattentive type; Translations: [Other specified behavioral and emotional disorders with onset usually occurring in childhood and adolescence]Onset: ChronicEssential hypertension (20 sources)Essential hypertension; Translations: [Essential (primary) hypertension]Onset: 273377-84-5546DvputgoFwsko and electrolyte disorders (2 sources)Hypokalemia; Translations: [Hypokalemia]Onset: 69-80-3887Efnjtzcw Fracture of lower limb (1 source)Stress fracture, [...] [Migrainewith aura, not intractable, without status migrainosus]Onset: 316098-71-2050BhdgylrEabgsufeenzev and screening for infectious disease (5 sources)Contact with and (suspected) exposure to other viral communicable diseases; Translations: [Vaccination given]Onset: 48-33-1227XcjryczlXgjgtjeru (2 sources)Upper respiratory tract infection due to Influenza; Translations: [Influenza due to unidentified influenza virus with other respiratory manifestations]Onset: 74-78-5070SyiaxtjgGiinc disorders and dislocations; trauma-related (20 sources)Unspecified internal derangement of right knee; Translations: [Derangement of right knee]Onset: 85-74-5590RrbnuzvHyggdwszu disorders (1 source)Excessive and frequent menstruation; Translations: [Excessive and frequent menstruation with regular cycle]ChronicMood disorders (1 source)Dysthymia; Translations: [Dysthymic disorder]ChronicMultiple sclerosis (5 sources)Multiple sclerosis; Translations: [MULTIPLE SCLEROSIS]Onset: 71-52-8387CfrzawsLudcqbsyy; nephrosis; renal sclerosis (20 sources)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; Translations: [Nephrotic syndrome]Onset: 70-56-1118JjjpnldRznlhoqcqjg deficiencies (20 sources)Vitamin D deficiency; Translations: [Vitamin D deficiency, unspecified]Onset: 796867-58-8747WnnddirEutmq aftercare (1 source)History and physical examination, follow-up; Translations: [Encounter for follow-up examination after completed treatment for conditions other than malignant neoplasm]EpisodicOther circulatory disease (1 source)Other specified symptoms and signs involving the circulatory and respiratory systemsEpisodicOther connective tissue disease (5 sources)Pain in left foot; Translations: [PAIN IN LEFT FOOT]Onset: 06-05-2021 EpisodicOther connective tissue disease (4 sources)Pain in right foot; Translations: [PAIN IN RIGHT FOOT]Onset: 97-68-9433CsyjoykaGcitv connective tissue disease (5 sources)Neuralgia and neuritis, unspecified; Translations: [NEURALGIA AND NEURITIS UNSPECIFIED]Onset: 15-01-6076LfhpkowqHuqag connective tissue disease (1 source)Neuralgia; Translations: [Neuralgia [...] disease of central nervous system, unspecified]Onset: 06-09-2023 55-74-1163NgsquvpHganc nervous system disorders (20 sources)Small fiber neuropathy; Translations: [Polyneuropathy, unspecified] Onset: 370871-11-7250LdqnjoePtkxl nervous system disorders (4 sources)Chiari malformation type I; Translations: [Compression of brain] 11-25-7263PhzevvcVhexb nervous system disorders (1 source)Impaired cognition; Translations: [Other symptoms and signs involving cognitive functions and awareness]26-59-2175TqsfcuumIsuaj nutritional; endocrine; and metabolic disorders (1 source)Overweight; Translations: [Overweight]EpisodicOther nutritional; endocrine; and metabolic disorders (1 source)Body mass index 25-29 - overweight; Translations: [Body mass index (BMI) 28.0-28.9, adult]EpisodicOther screening for suspected conditions (not mental disorders or infectious disease) (13 sources)Encounter for screening for lipoid disorders; Translations: [Other abnormal findings on diagnostic imaging of central nervous system]Onset: 27-31-2385KdvmljnhXvwaf upper respiratory infections (1 source)Chronic sinusitis; Translations: [Chronic sinusitis, unspecified] ChronicOther upper respiratory infections (10 sources)Acute maxillary sinusitis, unspecified; Translations: [Acute sinusitis]Onset: 26-11-8812HanasmuvCioxtp media and related conditions (5 sources)Acute secretory otitis media; Translations: [Other acute nonsuppurative otitis media, right ear]Onset: 68-39-8932JyqxxbwfVkyxngtn codes; unclassified (4 sources)Localized edema; Translations: [LOCALIZED EDEMA]Onset: 05-18-2021 EpisodicResidual codes; unclassified (1 source)Family history of diabetes mellitus; Translations: [Family history of diabetes mellitus]EpisodicResidual codes; unclassified (1 source)Tobacco user; Translations: [Tobacco use]EpisodicSystemic lupus erythematosus and connective tissue disorders (3 sources)Autoimmune disease; Translations: [Systemic involvement of connective tissue, unspecified]60-04-8877QusafytRqdezud disorders (1 source)Hypothyroidism; Translations: [Other specified hypothyroidism] 13-81-2151Dexzwbn Past or Other Problems Problem ClassificationProblemDateDocumented DateEpisodic/ChronicAcute and chronic tonsillitis (1 source)Acute tonsillitis; Translations: [Acute tonsillitis, unspecified] Onset: 08-99-4475AnuaxlwwGhjyo bronchitis (1 source)Acute bronchitis; Translations: [Acute bronchitis, unspecified]Onset: 36-44-8151DknokvioCahhgzeuv infection; unspecified site (1 source)Bacterial infectious disease; Translations: [Bacterial infection, unspecified, in conditions classified elsewhere and of unspecified site]Onset: 48-76-3985TycdkfgbItwyiwsebhuqu of surgical procedures or medical care (20 sources)Drug-induced hypotension; Translations: [Hypotension due to drugs] Onset: 013902-32-9746YdhpuziwEyvqdsofd of teeth and jaw (1 source)Other specified disorders of temporomandibular joint; Translations: [Temporomandibular joint disc]Onset: 83-03-7843QqgyveauCvjgbak and fatigue (5 sources)Other fatigue; Translations: [Fatigue]Onset: 53-04-4520XiqnwdwwWsvvuk and vomiting (20 sources)Nausea, vomiting and diarrhea; Translations: [Nausea with vomiting, unspecified]Onset: 722868-36-5279PcfsercbRmffhhbqzabv breast conditions (20 sources)Mastodynia; Translations: [Pain of right breast]Onset: 09-16-2024 06-43-7118LrrbszwjMxkhmkdaang chest pain (1 source)Chest pain; Translations: [Chest pain, unspecified]Onset: 02-17-2018 EpisodicOther circulatory disease (20 sources)Prehypertension; Translations: [Elevated blood-pressure reading, without diagnosis of hypertension]Onset: 210847-27-7082VbpticnfUtbcn lower respiratory disease (1 source)Cough; Translations: [Cough, unspecified]Onset: 78-66-8001Rlbpcbjq Other nervous system disorders (1 source)Ataxia, unspecified; Translations: [ATAXIA UNSPECIFIED]Onset: 88-30-1098SomncrnqTcfex nervous system disorders (1 source)Paresthesia of skin; Translations: [PARESTHESIA OF SKIN]Onset: 14-15-8288PgnfjotfDvabr skin disorders (1 source)Localized swelling, mass and lump, unspecified; Translations: [Localized mass]Onset: 29-12-2853LvfvyffiTzauaznk codes; unclassified (1 source)History of exposure to hazardous bodily fluids; Translations: [Personal history of contact with and(suspected) exposure to potentially hazardous body fluids]Onset: 46-54-8881UfvitoteGflzriyk codes; unclassified (1 source)Flushing; Translations: [Flushing]Onset: 08-62-6791Rhhrflab Unclassified (2 sources)Acquired absence of both cervix and uterus; Translations: [Acquired absence of both cervix and uterus]Onset: 18-38-9187IxscuwgfLjwlmqscipki (1 source)Vaginal yeast infection B37.31Unclassified (1 source)Suspected COVID-19 virus infection Z20.822Viral infection (1 source)COVID-19 Results Test NameValueInterpretationReference RangeFacilitySjogrens syndrome-A extractable nuclear antibodyon 10-96-5632Ctuokeuj syndrome-A extractable nuclear Ab IA Qn (S)<1.0 NEG<1.0 NEG AINOND HealthcareFASTING:NO FASTING: NOQUESTPerforming Organization Information Site ID: QPT Name: [facility] Address: [address] [place] [address] Director: Tigre Ram [facility] CampusNo Panel Informationon 53-71-7803Wxlnmvigls Organization Information Site ID: QPT Name: [facility] Address: [address] [place] [address] Director: Tigre Ram MDUNC Health WayneT3on 00-90-1657E3 [Mass/Vol]114 ng/dL76 - 181 ng/dLNorthwest Medical CenterT4, free 28-88-3434Aqkz T4 [Mass/Vol]1 ng/dL0.8 - 1.8 ng/dLNorthwest Medical CenterTSn 70-22-2946OFJ Qn1.59 m[IU]/LmIU/LNOMS HealthcareComment on above:Reference Range > or = 20 Years 0.40-4.50 Ranges First trimester 0.26-2.66 Second trimester 0.55-2.73 Third trimester 0.43-2.91 XR chest 2V*on 86-38-4209AK chest 2V*[facility] Main [address] [address] XRay Report Signed Patient: Celi Madrid MR#: [id number] : 1985 Acct:[id number] Age/Sex: 39 / F ADM Date: 10/11/24 Loc: XDUCLY Room: Type: [facility] CLI Attending Dr: Aleida Leiva APRN Copies [...] Jarrell Harp M.D.10/11/2024 12:51 PM Dictation Location: [place] [address] Transcribed By: [facility] 10/11/24 1251 Dictated By: Jarrell Harp DO 10/11/24 1248 Signed By: 10/11/24 [facility] Physician GroupTB VITAMIN D 25 OHon 09-17-2024 VITAMIN D19 ng/mLNOMS HealthcareComment on above:<20 ng/mL Vit D deficient 20-<30 ng/mL Vit D insufficient 30-100 ng/mL Vit D sufficient >100 ng/mL Potential Toxicity CLINISYNCNOMS Healthcare head/brain wo/w conon 60-45-5036EB head/brain wo/w [facility] [place] [address] MRI Report Signed Patient: Celi Madrid MR#: [id number] : 1985 Acct:[id number] Age/Sex: 38 / F ADM Date: 03/10/24 Loc: MR Room: Type: [facility] CLI Attending Dr: Efrain Jean Baptiste MD Copies to: Efrain Jean Baptiste MD Ordering Provider: Efrain Jean Baptiste MD Date of Service: 03/10/24 MR/MR head/brain wo/w con: [id number], [id number] MRI of the brain with and without [...] Izaguirre Jr., D.ONaman03/11/2024 9:41 AM Dictation Location: [place] [address] Transcribed By: [facility] 03/11/24 0941 Dictated By: Bran Izaguirre Jr, DO 03/11/24 0938 Signed By: 03/11/24 0941[facility] Physician GroupLon 37-50-1601ZPvoxmvkk: BS24- 354 Received: 03/05/24 Status: SOUT Req Num: [id number] Spec Type: Surgical Subm Dr: Umberto Jung MD Tissues: A BREAST CORE NO CALCS (RT BREAST 9:00) Procedures: HE/4, Gross/Micro L4 Age/ Patient Sex Location Account Attending Physician Celi Madrid 38/F LABELL [id number] Umberto Jung MD SPEC NUM: [id number] RECD: 03/05/24 STATUS: SOUT REQ NUM: [id number] LIS: 03/04/24- SUBM DR: Umberto Jung MD [...] at gross: 03/05/2024 at 1441 CPT Codes 41883 Specimen: [id number] Received: 03/05/24 Status: SUSAN [place] Num: [id number] Spec Type: Surgical Subm Dr: Umberto Jung MD Tissues: A BREAST CORE NO CALCS (RT BREAST 9:00) Procedures: , Gross/Micro L4 Patient: Celi Madrid [id number] (Continued) Signed (signature on file) Diana Lang MD 03/08/[address] [place] [address] Physician GroupNo Panel InformationOrdered By: Luisa Mckeon on 48-11-0449Arjdy Strep (POC)[facility] CenterCOVID/FLU/RSV RT-PCRon 05-73-7510EWHY-CoV-2 (COVID-19) RNA ROXANA+probe Ql (Unsp spec)Negative [facility] Other COVID/FLU/RSV RT-PCRNegativeBig Horn indico Other COVID/FLU/RSV RT-PCRPositiveBig Horn indico Other COVID Quick Testingon [id number] indico Other COVID/FLU/RSV RT-PCRon [id number]-CoV-2 (COVID-19) RNA ROXANA+probe Ql (Unsp spec)PositiveNometropolitan saint [facility] indico Other COVID/FLU/RSV RT-PCRNegativeBluenose Analytics Other CBC AUTO DIFFon [id number] #0.0 103/ulNormal 0.0-0.1[facility] HospitalComment on above:Performed By: #### CMP, LIPID #### [facility] [address] [place] [address] Dr. Sd JarrettBasophils/100 WBC (Bld)0.5 %Normal0.2-2.0The [facility] Comment on above:Performed By: #### CMP, LIPID #### [facility] [address] [place] [address] Dr. Sd Stevens #0.1 103/ulNormal0.0-0.7The [facility] CincinnatiComment on above: Performed By: #### CMP, LIPID #### [facility] [address] [place] [address] Dr. Sd Lanosinophils/100 WBC (Bld)1.3 %Normal0.9-7.0The [facility] Comment on above:Performed By: #### CMP, LIPID #### [facility] [address] [place] [address] Dr. Sd Hothrocyte distribution width (RBC) [Ratio]12.5 %Somast84.0-15.0 The [facility] CincinnatiComment on above:Performed By: #### CMP, LIPID #### [facility] [address] [place] [address] Dr. Sd JarrettHematocrit (Bld) [Volume fraction]40.3 %Kiqhaf63.0-48.0The [facility] CincinnatiComment on above:Performed By: #### CMP, LIPID #### [facility] [address] [place] [address] Dr. Sd JarrettHemoglobin (Bld) [Mass/Vol]12.8 g/lPDrggbr25.0-16.0The [facility] CincinnatiComment on above:Performed By: #### CMP, LIPID #### [facility] [address] [place] [address] Dr. Sd Doss #0.03 10e3/ulNormal0.00-0.03The [facility] CincinnatiComment on above:Performed By: #### CMP, LIPID #### [facility] [address] [place] [address] Dr. Sd Doss %0.3 %Normal0.0-0.5The [facility] CincinnatiComment on above: Performed By: #### CMP, LIPID #### [facility] [address] [place] [address] Dr. Sd Rao #2.3 103/ulNormal1.2-3.8The [facility] CincinnatiComment on above:Performed By: #### CMP, LIPID #### [facility] [address] [place] [address] Dr. Sd Hillhocytes/100 WBC (Bld)26.7 %Qlzczx29.5-60.0The [facility] CincinnatiComment on above:Performed By: #### CMP, LIPID #### [facility] [address] [place] [address] Dr. Sd AlexanderUAL DIFF REQNONormalThe [facility] CincinnatiComment on above: Performed By: #### CMP, LIPID #### [facility] [address] [place] [address] Dr. Sd Camarillo (RBC) [Entitic mass]29.3 rcGhwymz66.7-34.0The [facility] CincinnatiComment on above:Performed By: #### CMP, LIPID #### [facility] [address] [place] [address] Dr. Sd Camarillo (RBC) [Mass/Vol]31.8 g/tROksyyc08.9-35.2The [facility] CincinnatiComment on above:Performed By: #### CMP, LIPID #### [facility] [address] [place] [address] Dr. Sd Camarillo (RBC) [Entitic vol]92.2 bJRfeyeo95.0-99.0The [facility] CincinnatiComment on above:Performed By: #### CMP, LIPID #### [facility] [address] [place] [address] Dr. Sd De La Torre #0.5 103/ulNormal0.3-0.8The [facility] CincinnatiComment on above:Performed By: #### CMP, LIPID #### [facility] [address] [address] [address] Sd Urrutiaocytes/100 WBC (Bld)5.8 %Normal1.7-12.0The [facility] Comment on above:Performed By: #### CMP, LIPID #### [facility] [address] [address] [address] Sd LouisUT #5.6 103/ulNormal1.4-6.5The [facility] CincinnatiComment on above:Performed By: #### CMP, LIPID #### [facility] [address] [place] [address] Dr. Sd Louisutrophils/100 WBC (Bld)65.4 %Hxloip78.0-75.0The [facility] CincinnatiComment on above:Performed By: #### CMP, LIPID #### [facility] [address] [place] [address] Dr. Sd JarrettPlatelet mean volume (Bld) [Entitic vol]9.9 fLNormal9.5-13.5The [facility] CincinnatiComment on above:Performed By: #### CMP, LIPID #### [facility] [address] [place] [address] Dr. Sd JarrettPLT315 103/bdTvxsqz980-669Xcr [facility] CincinnatiComment on above: Performed By: #### CMP, LIPID #### [facility] [address] [place] [address] Dr. Sd JarrettRBC4.37 106/ulNormal4.20-5.40The [facility] CincinnatiComment on above:Performed By: #### CMP, LIPID #### [facility] [address] [place] [address] Dr. Sd JarrettWBC8.6 103/ulNormal4.0-11.0The [facility] on above: Performed By: #### CMP, LIPID #### [facility] [address] [place] [address] Dr. Sd JarrettLIPID PROFILEon [id number]-HDL RATIO NORMSEE [facility] TriPoint Medical CenterComment on above:Result Comment: 3.3 - 4.4 LOW RISK 4.4 - 7.1 AVERAGE RISK 7.1 - 11.0 MODERATE RISK >11.0 HIGH RISKPerformed By: #### CMP, LIPID #### [facility] [address] [address] [address] Sd JarrettCholesterol [Mass/Vol]294 mg/dLCritically high<=200The [facility] CincinnatiComment on above:Performed By: #### CMP, LIPID #### [facility] [address] [place] [address] Dr. Sd JarrettCholesterol in HDL [Mass/Vol]64 mg/dLMount Carmel Health System Comment on above:Performed By: #### CMP, LIPID #### [facility] [address] [place] [address] Dr. Sd JarrettCholesterol in LDL [Mass/Vol]192.4 mg/dLMount Carmel Health SystemComment on above:Performed By: #### CMP, LIPID #### [facility] [address] [place] [address] Dr. Sd Ramirezesterlindsey.total/Cholesterol in HDL [Mass ratio]4.6 {ratio} NormalThe [facility] CincinnatiComscheurer hospital on above:Performed By: #### CMP, LIPID #### [facility] [address] [place] [address] Dr. Sd JarrettHDL NORMAL> or = 60 mg/dl - LOW CARDIOVASCULAR RISK <40 mg/dl - HIGH CARDIOVASCULAR RISKMount Carmel Health SystemComment on above:Performed By: #### CMP, LIPID #### [facility] [address] [place] [address] Dr. Sd JarrettLDL CALC NORMALSEE BELOWMount Carmel Health SystemComment on above:Result Comment: <100 mg/dl OPTIMAL 100 - 129 mg/dl NEAR OR ABOVE OPTIMAL 130 - 159 mg/dl BORDERLINE HIGH 160 - 189 mg/dl HIGH >190 mg/dl VERY HIGH Performed By: #### CMP, LIPID #### [facility] [address] [place] [address] Dr. Sd JarrettTriglyceride [Mass/Vol]188 mg/dLCritically high<=150The [facility] CincinnatiComment on above:Performed By: #### CMP, LIPID #### [facility] [address] [place] [address] Dr. Sd SantosLDL CALC37.6 mg/dLNormalThe [facility] CincinnatiComment on above: Performed By: #### CMP, LIPID #### [facility] [address] [place] [address] Dr. Sd JarrettPROF 14(COMP METB)on 33-30-2986Uhpqfao [Mass/Vol]3.4 g/dL Critically low3.5-5.0The [facility] CincinnatiComment on above:Performed By: #### CMP, LIPID #### [facility] [address] [place] [address] Dr. Sd JarrettAlbumin/Globulin [Mass ratio]0.9 {ratio}NormalThe [facility] CincinnatiComment on above:Performed By: #### CMP, LIPID #### [facility] [address] [place] [address] Dr. Sd Duque [Catalytic activity/Vol]69 U/XEmpxsp82-442Htm [facility] CincinnatiComment on above:Performed By: #### CMP, LIPID #### [facility] [address] [place] [address] Dr. Sd Bhagat [Catalytic activity/Vol]32 U/LNormal9-52The [facility] Comment on above:Performed By: #### CMP, LIPID #### [facility] [address] [place] [address] Dr. Sd John gap [Moles/Vol]9.4 mmol/LNormalThe [facility] CincinnatiComment on above:Performed By: #### CMP, LIPID #### [facility] [address] [place] [address] Dr. Sd Rocha [Catalytic activity/Vol]16 U/JAysgtf24-71Bnf [facility] CincinnatiComment on above:Performed By: #### CMP, LIPID #### [facility] [address] [place] [address] Dr. Yilan ChangBilirubin [Mass/Vol]0.2 mg/dLNormal0.2-1.3The [facility] Comment on above:Performed By: #### CMP, LIPID #### [facility] [address] [place] [address] Dr. Sd JarrettCalcium [Mass/Vol]8.9 mg/dLNormal8.4-10.2The [facility] Comment on above:Performed By: #### CMP, LIPID #### [facility] [address] [place] [address] Dr. Sd JarrettChloride [Moles/Vol]100 mmol/PPvmcbr87-697Cgi [facility] Comment on above:Performed By: #### CMP, LIPID #### [facility] [address] [place] [address] Dr. Sd JarrettCO2 [Moles/Vol]30.5 mmol/LCritically high22.0-30.0The [facility] CincinnatiComment on above:Performed By: #### CMP, LIPID #### [facility] [address] [place] [address] Dr. Sd JarrettCreatinine [Mass/Vol]0.60 mg/dLNormal0.52-1.04The [facility] CincinnatiComment on above:Performed By: #### CMP, LIPID #### [facility] [address] [place] [address] Dr. Sd LanGFR-AF MAURITIAN>60Normal>=60The [facility] CincinnatiComment on above:Performed By: #### CMP, LIPID #### [facility] [address] [place] [address] Dr. Sd LanGFR-NON AF MAURITIAN>60Normal>=60The [facility] CincinnatiComment on above:Performed By: #### CMP, LIPID #### [facility] [address] [place] [address] Dr. Sd JarrettGlobulin (S) [Mass/Vol]4.0 g/dLNormalThe [facility] CincinnatiComment on above:Performed By: #### CMP, LIPID #### [facility] [address] [place] [address] Dr. Sd JarrettGlucose [Mass/Vol]76 mg/zPUnypbb04-395Chi [facility] Comment on above:Performed By: #### CMP, LIPID #### [facility] [address] [address] [address] Sd JarrettPotassium [Moles/Vol]3.9 mmol/LNormal3.4-5.0The [facility] Comment on above:Performed By: #### CMP, LIPID #### [facility] [address] [address] [address] Sd JarrettProtein [Mass/Vol]7.4 g/dLNormal6.1-8.2The [facility] Comment on above:Performed By: #### CMP, LIPID #### [facility] [address] [place] [address] Dr. Sd JarrettSodium [Moles/Vol]136 mmol/LCritically gkt501-710Cgz [facility] CincinnatiComment on above:Performed By: #### CMP, LIPID #### [facility] [address] [place] [address] Dr. Sd JarrettUrea nitrogen [Mass/Vol]10.0 mg/dLNormal7.0-17.0The [facility] CincinnatiComment on above:Performed By: #### CMP, LIPID #### [facility] [address] [place] [address] Dr. Sd JarrettUrea nitrogen/Creatinine [Mass ratio]16.7 mg/mgNormalThe [facility] CincinnatiComment on above:Performed By: #### CMP, LIPID #### [facility] [address] [place] [address] Dr. Sd JarrettXR FOOT LIAM MIN 3 VIEWSon [id number] FOOT LIAM MIN 3 VIEWS EXAMINATION: XR [...] Electronically authenticated by: UMBERTO JUNG Date: 2021-07-05 14:12NoAC[facility] Healthcare [facility] GlenbeighXR FOOT LIAM MIN 3 VIEWSon 78-93-1993CF FOOT LIAM MIN 3 VIEWS EXAM: XR [...] Electronically authenticated by: JOEL AYALA Date: 2021-06-12 15:05NoACMC Healthcare System GlenbeighXR FOOT LIAM MIN 3 VIEWSon 49-45-5515PB FOOT LIAM MIN 3 VIEWS EXAMINATION: XR [...] Electronically authenticated by: UMBERTO JUNG Date: 2021-05-23 08:04[facility] AUTO DIFFon [id number] #0.0 103/ulNormal0.0-0.1The [facility] CincinnatiComment on above:Performed By: #### CBC #### [facility] [address] [place], [place] [address] Woody KarenBasophils/100 WBC (Bld)0.4 %Normal0.2-2.0The [facility] Comment on above:Performed By: #### CBC #### [facility] [address] [address] Woody KarenEO #0.1 103/ulNormal0.0-0.7The [facility] CincinnatiComment on above: Performed By: #### CBC #### [facility] [address] [place] [address] Woody KarenEosinophils/100 WBC (Bld)1.4 %Normal0.9-7.0The [facility] Comment on above:Performed By: #### CBC #### [facility] [address] [place] [address] Woody KarenErythrocyte distribution width (RBC) [Ratio]12.4 %Edqlyn77.0-15.0The [facility] CincinnatiComment on above:Performed By: #### CBC #### [facility] [address] [place] [address] Woody KarenHematocrit (Bld) [Volume fraction]40.1 %Inajwf69.0-48.0The [facility] CincinnatiComment on above:Performed By: #### CBC #### [facility] [address] [place] [address] Woody KarenHemoglobin (Bld) [Mass/Vol]13.2 g/tFHxzaoe34.0-16.0The [facility] CincinnatiComment on above:Performed By: #### CBC #### [facility] [address] [place] [address] Woody KarenIG #0.03 10e3/ulNormal0.00-0.03The [facility] CincinnatiComment on above:Performed By: #### CBC #### [facility] [address] [place] [address] Woody KarenIG %0.4 %Normal0.0-0.5The [facility] CincinnatiComment on above: Performed By: #### CBC #### [facility] [address] [place] [address] Woody KarenLYMPH #2.1 103/ulNormal1.2-3.8The [facility] CincinnatiComment on above: Performed By: #### CBC #### [facility] [address] [place] [address] Woody KarenLymphocytes/100 WBC (Bld)29.1 %Euhscf29.5-60.0The [facility] Comment on above:Performed By: #### CBC #### [facility] [address] [place] [address] Woody KarenMANUAL DIFF REQNONormalThe [facility] CincinnatiComment on above: Performed By: #### CBC #### [facility] [address] [place] [address] Woody KarenMCH (RBC) [Entitic mass]29.5 tqSjaeyt72.7-34.0[facility] Comment on above:Performed By: #### CBC #### [facility] [address] [place] [address] Woody KarenMCHC (RBC) [Mass/Vol]32.9 g/rECxvxlm55.9-35.2[facility] Comment on above:Performed By: #### CBC #### [facility] [address] [place] [address] Woody KarenMCV (RBC) [Entitic vol]89.7 uSXhhygl24.0-99.0The [facility] Comment on above:Performed By: #### CBC #### [facility] [address] [place] [address] Woody KarenMONO #0.4 103/ulNormal0.3-0.8The [facility] CincinnatiComment on above: Performed By: #### CBC #### [facility] [address] [place] [address] Woody KarenMonocytes/100 WBC (Bld)5.6 %Normal1.7-12.0[facility] Comment on above:Performed By: #### CBC #### [facility] [address] [place] [address] Woody KarenNEUT #4.6 103/ulNormal1.4-6.5The [facility] CincinnatiComment on above: Performed By: #### CBC #### [facility] [address] [place] [address] Woody KarenNeutrophils/100 WBC (Bld)63.1 %Fserai09.0-75.0The [facility] Comment on above:Performed By: #### CBC #### [facility] [address] [place] [address] Woody DuenasPlatelet mean volume (Bld) [Entitic vol]9.3 fLCritically low9.5-13.5 The [facility] CincinnatiComment on above:Performed By: #### CBC #### [facility] [address] [place] [address] Woody FuwbtSDH254 103/zsTkfopu775-209Lgi [facility] CincinnatiComment on above: Performed By: #### CBC #### [facility] [address] [place] [address] Woody KarenRBC4.47 106/ulNormal4.20-5.40The [facility] CincinnatiComment on above: Performed By: #### CBC #### [facility] [address] [place] [address] Woody MccloudenWBC7.3 103/ulNormal4.0-11.0The [facility] CincinnatiComment on above: Performed By: #### CBC #### [facility] [address] [place] [address] Woody KarenFERRITINon 96-57-4056Vancunrk [Mass/Vol]75.0 ng/mLNormal6.2-137.0The [facility] CincinnatiComment on above:Performed By: #### CMP, LIPID #### [facility] [address] [place] [address] Dr. Sd JarrettRENAL FUNCTION PANELon 99-46-7962Wuticbk [Mass/Vol]3.4 g/dL Critically low3.5-5.0The [facility] CincinnatiComment on above:Performed By: #### RENAL ####[facility] N[address] [place], [place] [address]Gerken KarenCalcium [Mass/Vol]8.9 mg/dLNormal8.4-10.2The [facility] Comment on above:Performed By: #### RENAL ####[facility] [address] [place] [address]Pxezmg KarenChloride [Moles/Vol]105 mmol/L Tgypqe83-910Nwe [facility] CincinnatiComscheurer hospital on above:Performed By: #### RENAL ####[facility] [address] [place] [address]Akjoyf KarenCO2 [Moles/Vol]27.6 mmol/ARnzusa52.0-30.0The [facility] CincinnatiComment on above:Performed By: #### RENAL ####[facility] [address] [place] [address]Dbgwtn KarenCreatinine [Mass/Vol]0.64 mg/dLNormal 0.52-1.04The [facility] CincinnatiComscheurer hospital on above:Performed By: #### RENAL ####[facility] [address] [place] [address]Vkdxeq KarenEGFR-AF MAURITIAN>60Normal>=60The [facility] CincinnatiComscheurer hospital on above: Performed By: #### RENAL ####[facility] [address] [place] [address]Hxaanj KarenEGFR-NON AF MAURITIAN>60Normal>=60The [facility] CincinnatiComscheurer hospital on above:Performed By: #### RENAL ####[facility] [address] [place] [address]Zfosfg KarenGlucose [Mass/Vol]62 mg/dLCritically yas80-181Kxv [facility] CincinnatiComscheurer hospital on above: Performed By: #### RENAL ####[facility] [address]am[address] [place] [address]Jsfwot KarenPhosphate [Mass/Vol]2.4 mg/dLCritically low2.5-4.5The [facility] CincinnatiComscheurer hospital on above:Performed By: #### RENAL ####[facility] Q[address]kw[address] [place], [place] [address]Gerken KarenPotassium [Moles/Vol]4.1 mmol/LNormal3.4-5.0The [facility] CincinnatiComscheurer hospital on above:Performed By: #### RENAL ####[facility] [address] KarenSodium [Moles/Vol]141 mmol/USekhlr795-991 The [facility] CincinnatiComment on above:Performed By: #### RENAL ####[facility] [address] [place] [address] KarenUrea nitrogen [Mass/Vol]12.0 mg/dLNormal7.0-17.0The [facility] CincinnatiComment on above:Performed By: #### RENAL ####[facility] [address] [place] [address] KarenUA RANDOM W/MICROSCOPICon 05-18-2021 BACTERIASMALLAbnormalNONE SEENThe [facility] CincinnatiComscheurer hospital on above:Performed By: #### UAMIC ####[facility] [address] [place] [address] KarenBilirubin Ql (U)NegativeNormalNEGATIVEThe [facility] CincinnatiComment on above:Performed By: #### UAMIC ####[facility] [address] [place], [place] [address]Gerken KarenCASTNONE SEEN NormalNONE SEENThe [facility] CincinnatiComscheurer hospital on above:Performed By: #### UAMIC ####[facility] [address] [place] [address] KarenClarity (U)CLEARNormalCLEARThe [facility] CincinnatiComscheurer hospital on above:Performed By: #### UAMIC ####[facility] K[address]venbnied[address] [place], [place] [address]Gerken KarenColor (U)YELLOWNormalYELLOWThe Select Medical [facility] on above:Performed By: #### UAMIC ####[facility] Rvnmidcmoe[address] [place], [place] [address]Gerken KarenCrystals LM Nom (Urine sed)NONE SEENNormal NONE SEENThe [facility]Com[facility] hospital on above:Performed By: #### UAMIC ####[facility] Jkkzzbyrvj[address] [place], [place] [address]Gerken KarenEpithelial cells LM Ql (Urine sed)MODERATEAbnormalNONE SEEN /RAREThe [facility] CincinnatiComment on above:Performed By: #### UAMIC ####[facility] Uumkyflvcw[address] [place] [id number] KarenGlucose Ql (U) NegativeNormalNEGATIVEOhiohealth Grady Memorial HospitalComment on above:Performed By: #### UAMIC ####[facility] Ybutcjyabw[address]60 [address] KarenHemoglobin Ql (U)MODERATEAbnormalNEGATIVEOhiohealth Grady Memorial Hospital Comment on above:Performed By: #### UAMIC ####[facility] Pebmredysj[address] [place] [phone] KarenKetones Ql (U)NegativeNormal NEGATIVEOhiohealth Grady Memorial HospitalComment on above:Performed By: #### UAMIC ####[facility] Nialifwpqe[address] [place] [address] KarenLEUKOCYTESNegativeNormalNEGATIVEOhiohealth Grady Memorial HospitalComment on above: Performed By: #### UAMIC ####[facility] Tppmlcquow2746 [address] KarenMUCOUSMODERATEAbnormalNONE SEENOhiohealth Grady Memorial HospitalComment on above:Performed By: #### UAMIC ####[facility] Pliwjjadxs5664 [address] KarenNitrite Ql (U) NegativeNormalNEGATIVEOhiohealth Grady Memorial HospitalComment on above:Performed By: #### UAMIC ####[facility] Thtrevisuc[address] KarenpH (U)5.5 [pH]Normal5-9Ohiohealth Grady Memorial HospitalComment on above: Performed By: #### UAMIC ####[facility] Ajwocqtw[address] [place] [address] CdzafRXM3-4Ufpkmf3-0Syl [facility] Comment on above:Performed By: #### UAMIC ####[facility] Nbzdvclhgx[address] [place] [address] KarenSPEC GRAVITY>=1.030Abnormal 1.005-<=1.025Ohiohealth Grady Memorial HospitalComment on above:Performed By: #### UAMIC ####[facility] Ugbfgbkbys[address] [place] [address] KarenUA DUOUOFN780 mg/dlAbnormalNEGATIVE/ TRACEThe [facility] CincinnatiComment on above:Performed By: #### UAMIC ####[facility] Bpnfgj[address] [place] [address] KarenUrobilinogen Qn (U)0.2 {Ratna'U}/dL Normal0.2 - 1.0The [facility] CincinnatiComment on above:Performed By: #### UAMIC ####[facility] [address]bcy[address] [place] [address] KarenWBC0-2AbnormalNONE SEENThe [facility] CincinnatiComment on above:Performed By: #### UAMIC ####[facility] R[address]vnkxpegt[address] [place] [address] KarenURINE T PROTEIN CREAT RATIOon 81-62-8094Dhqlhvy (U) [Mass/Vol] 98.3 mg/dLCritically high<=12.0Ohiohealth Grady Memorial HospitalComment on above:Performed By: #### CMP, LIPID #### [facility] Laboratory [address] [place] [address] Dr. Sd Gonzalez PROT CREAT RAT0.41NormalThe [facility] CincinnatiComment on above: Performed By: #### CMP, LIPID #### [facility] Laboratory [address] [place] [address] Dr. Sd Baez PEOVY910.76 mg/bHXffjig41.00-300.00[facility] Comment on above:Performed By: #### CMP, LIPID #### [facility] Laboratory [address] [place] [address] Dr. Sd JarrettQUANTIFERON TB GOLD PLUS (NON-INC)on 95-03-2721MecrzbfSmpuipaawp performed.NormalOhiohealth Grady Memorial HospitalComment on above:Performed By: #### QNTTBG ####[facility] [address] [place] [address] KarenCriteriaCommentNoACMC Healthcare System GlenbeighComscheurer hospital on above:Result Comment: The QuantiFERON-TB Gold Plus result is determined by subtracting the Nil value from either TB antigen (Ag) tube. The mitogen tube serves as a control for the test.Performed By: #### QNTTBG ####[facility] [address] [place] [address] KarenMitogen Value >10.00NoGrant Hospital on above:Performed By: #### QNTTBG ####[facility] C[address]rkevpf[address] [place] [address] KarenNill Value0.00 IU/mLNormalOhio State University [facility] on above:Performed By: #### QNTTBG ####[facility] Cpodetov[address] [place] [address] KarenQuantiferon Gold PlusNegativeNormalNegativeOhio State University [facility] on above:Result Comment: Chemiluminescence immunoassay methodologyPerformed By: #### QNTTBG ####[facility] Lhnwkgxjtj[address] [place] [address] KarenTB1 Ag Value0.00 IU/mLNormalOhio State University [facility] on above:Performed By: #### QNTTBG ####[facility] [address]xphtfwzi[address] [place] [address] KarenTB2 Ag Value0.00 IU/mLNormalOhio State University [facility] on above:Performed By: #### QNTTBG ####[facility] [address]rsoqw[address] [place] [address] KarenHEPATITIS B SURFACE ANTIBODY, QUANTon 16-28-9928Xmcdvhkss B Surf AB Hjgbd925.8 mIU/mLNormalImmunity>9.9[facility] on above:Result Comment: Status of Immunity Anti-HBs Level Inconsistent with Immunity 0.0 - 9.9 Consistent with Immunity >9.9Performed By: #### HEPBSRF ####[facility] Nwizzzkbvg[address] [place], [place] [address]Vvywne KarenMMR IMMUNITYon 85-78-7139Sqrvh Abs, IgG<9.0Critically lowImmune >10.9The [facility] Comment on above:Result Comment: Negative <9.0 Equivocal 9.0 - 10.9 Positive >10.9 A positive result generally indicates past exposure to Mumps virus or previous vaccination.Performed By: #### MMRIMMU ####[facility] Uggnbnhhwv[address] [place] [phone] KarenRubella Antibodies, IgG3.59 indexNormalImmune >0.99The [facility] CincinnatiComment on above:Result Comment: Non-immune <0.90 Equivocal 0.90 - 0.99 Immune >0.99Performed By: #### MMRIMMU ####[facility] Jpapjrbhhn[address] [place] [address]Gerken KarenRubeola Ab, AaA932.0 AU/mLNormal Immune >16.4The [facility] CincinnatiComment on above:Result Comment: Negative <13.5 Equivocal 13.5 - 16.4 Positive >16.4 Presence of antibodies to Rubeola is presumptive evidence of immunity except when acute infection is suspected.Performed By: #### MMRIMMU ####[facility] Lbcghigdwl[address] [place] [phone] KarenVARICELLA IGG ABon 44-46-4096Ytwtjjpro Zoster UzX958 indexNormalImmune >165 The [facility] CincinnatiComment on above:Result Comment: Negative <135 Equivocal 135 - 165 Positive >165 A positive result generally indicates exposure to the pathogen or administration of specific immunoglobulins, but it is not indication of active infection or stage of disease.Performed By: #### CMP, LIPID #### [facility] Laboratory [address] [place], [place] [address] Dr. Sd JarrettTHYROGLOBULIN ABon 55-16-0441Zckuwqyryyavd Antibody<1.0Normal 0.0-0.9The [facility] CincinnatiComment on above:Result Comment: Thyroglobulin Antibody measured by vendome 1699 MethodologyPerformed By: #### THYGAB #### [facility] Laboratory [address] [place] [address] Woody KarenFREE T4on 37-14-4628Znai T4 [Mass/Vol]0.91 ng/dLNormal0.78-2.19The [facility] CincinnatiComment on above:Performed By: #### CMP, LIPID #### [facility] Laboratory [address] [place] [address] [address] Sd Walton 43-84-1507NKM5.710 uIU/mLNormal0.470-4.680The [facility] CincinnatiComment on above:Performed By: #### TSH #### [facility] Laboratory [address] [place] [address] Woody KarenTSH RANGESEE BELOWNormalThe [facility] CincinnatiComment on above:Result Comment: <0.34 UIU/ml HYPERTHYROID 0.34-5.60 UIU/ml EUTHYROID >5.60 UIU/ml HYPOTHYROIDPerformed By: #### TSH #### [facility] Laboratory [address] [place] [address] Woody KarenMYELIN BASIC PROT CSFon 10-91-0467Ptyqxx Basic Protein, CSF2.1 ng/mL Normal0.0-3.7The [facility] CincinnatiComment on above:Performed By: #### MBPCSF ####[facility] Ajqcjbbawq[address] [place], [place] [address]Gerken KarenIMMUNOGLOBULIN G SYNTHESIS RATE, CSFon 95-86-7920Etctfrs [Mass/Vol]3.7 g/dL Critically low3.8-4.8The [facility] CincinnatiComment on above:Performed By: #### IMMUNGC ####[facility] Bajjfjrerv[address] [place], [place] [address]Gerken KarenAlbumin, CSF13 mg/dYTogjoj77-90Kcm [facility] CincinnatiComment on above:Performed By: #### IMMUNGC ####[facility] [address]jtwnwmq[address] [place] [address]Gerken KarenIgG, Quant, CSF1.9 mg/dLNormal0.0-8.6The [facility] CincinnatiComment on above:Performed By: #### IMMUNGC ####[facility] Cfc[address]pnfjy[address] [place], [place] [address]Omwvhc KarenIgG, Syn Rate,CSF-1.5 mg/dayNormal9.9 TO +3.3The [facility] CincinnatiComment on above: Performed By: #### IMMUNGC ####[facility] Ddmufilksq[address] [place], [place] [address]Rfvogu KarenImmunoglobulin G, Qn, Eigrl840 mg/dLNormal 586-1602[facility] on above:Performed By: #### IMMUNGC ####[facility] Afwbwacngr74[address] [place], [place] [address]Gyoyzv KarenOILGOCLONAL BANDING CSFon 76-57-3925Ilzktyevlsf BandsCommentNoGrant Hospital on above:Result Comment: Zero (0) oligoclonal [...] immunoblotting methodology.Performed By: #### CMP, LIPID #### [facility] Laboratory [address] [place], [place] [address] Dr. Sd Carroll COUNT CSFon 16-13-4164KQO CLARITYCLEARNormalCLEAROhio State University [facility] Medical [facility] on above:Performed By: #### CCCSF ####[facility] [address]zgao[address] [place] [address]Gerken KarenPerformed By: #### CMP, LIPID #### [facility] Laboratory [address] [place] [address] [address] Sd Fitzgerald COLORCOLORLESSNormalCOLORLESSOhiohealth Grady Memorial HospitalComment on above:Performed By: #### CCCSF ####[facility] [address]zlbx[address] [place] [address]Gerken KarenPerformed By: #### CMP, LIPID #### [facility] Laboratory [address] [place] [address] [address] Sd Fitzgerald RBC11 cubic [facility] HospitalComment on above: Performed By: #### CCCSF ####[facility] [address]zcaee[address] [place] [address]Gerken KarenCSF RBC1 cubic [facility] HospitalComment on above:Performed By: #### CMP, LIPID #### [facility] Laboratory [address] [place] [address] [address] Sd Fitzgerald ZIWMNP02.0 mLNormalOhiohealth Grady Memorial HospitalComment on above: Performed By: #### CCCSF ####[facility] Fwpeowagtl[address] KarenPerformed By: #### CMP, LIPID #### [facility] Laboratory [address] [place] [address] [address] Sd Fitzgerald WBC0 cubic [facility] HospitalComment on above: Performed By: #### CCCSF ####[facility] [address]mfdxpdu[address] [place] [address]Gerken KarenPerformed By: #### CMP, LIPID #### [facility] Laboratory [address] [place] [address] [address] Sd Fitzgerald WBC HEADERREFERENCE RANGE 5-10 WBC/cubic mm = BORDERLINE NormalOhiohealth Grady Memorial HospitalComment on above:Performed By: #### CCCSF ####[facility] Rltixfcytg0260 [address] KarenPerformed By: #### CMP, LIPID #### [facility] Laboratory [address] [place], [place] [address] Dr. Sd JarrettGLUCOSE CSFon 16-41-6673SQUWZIY CSF59 mg/vSRvmlgt95-14QopOhio State University We[facility] Medical Center on above:Performed By: #### GLUCSF, PROTCSF ####[facility] Cmpfdvnusy0037 [address] KarenLAB TESTINGon 31-60-1518HFYP HEADERSEE SCANNED REPORT IN [facility] on above:Performed By: #### MISC ####[facility] Zshuqjreqv6397 [address] KarenREV FROM REF LAB 02/16/2021[facility] on above:Performed By: #### MISC ####[facility] Llthdlvuwt3138 [address] KarenSENT TO REF LAB02/16/2021[facility] on above: Performed By: #### MISC ####[facility] Xwdxbhvhnn6837 [address] KarenRECV HEADERSEE SCANNED REPORT IN [facility] on above:Performed By: #### MISC ####[facility] Ozskhcovcy7365 [address] KarenREV FROM REF LAB02/21/2021[facility] on above:Performed By: #### MISC ####[facility] Uggbzrvljq0551 [address] KarenSENT TO REF LAB02/17/2021[facility] on above:Performed By: #### MISC ####[facility] Twjhqcntit[address] [place] [address]Gerken KarenPROTEIN CSFon 60-37-3207AVD PROT CSF29 mg/sIVsiuyn58-61Yys [facility] HospitalComment on above:Performed By: #### GLUCSF, PROTCSF ####[facility] Atoskreiig[address] [place], [place] [address]Hyddyxanika Pate 52-75-5618NJPGXlpdsz Visit (NEMEFV) CELI MADRID ([id number]) 1985 F Date Time Provider Department 02/13/21 10:00 AM HARDIK GARCIA During your visit today, we recorded the following information about you: Temperature Pulse Blood pressure Weight 97.8 degrees 91/minute 114/75 71.6 kg Height 1.575 m Hardik Garcia MD 02/13/2021 11:[address] [facility] NEW EVALUATION Referral source: Yelitza Jones MD [address] [place] [phone] PRINCIPAL NEUROLOGIC DIAGNOSIS: Right arm pain, cognitive [...] expected to be with me at the [facility]. Ms. Madrid notes that in 2016, she had a lot of fatigue and was getting sick frequently. She was sent to an plant assigner and was given the pneumonia vaccine but [...] She has followed with Dr. Castillo in [place] at the [facility]. He recommended Ocrevus. She has discussed this with her liver doctor and gotten the ok to proceed with it. Dr. Castillo has suggested a lumbar puncture, but that has not been done yet. 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 Sensory examination: Light [...] which included preparing to see the patient, utqw-od-kfjm patient care, performing a medically appropriate examination, completing clinical documentation, reviewing records, and counseling/educating the patient/family. Hardik Garcia MD Staff Neurologist [facility] Referring Provider: [...] extremity [M79.601] Order(s):DAVE/ANGIOTENSIN BLD [SQACE] Order #: [id number] FUTURE ANTI BRENT ID [SQENAID] Order #: [id number] FUTURE JASVIR BY IFA WITH REFLEX [SQANAIFR] Order #: [id number] FUTURE FOLATE SERUM [SQSERFOL] Order #: [id number] FUTURE HOMOCYSTEINE [SQHOMCYS] Order #: [id number] FUTURE LYME AB LATE >30 DAYS SYMPTOMS [SQLMLATE] Order #: [id number] FUTURE METHYLMALONIC ACID [SQMMA] Order #: [id number] FUTURE SYPHILIS TOTAL W/REFLEX [SQSYPHTX] Order #: [id number] FUTURE TSH BLD [SQTSH] Order #: [id number] FUTURE COPPER BLOOD [SQCOPPER] Order #: [id number] FUTURE CERULOPLASMIN BLD [SQCERULO] Order #: [id number] FUTURE Prescriptions as of 02/13/2021 Sig: ROSUVASTATIN [...] Encounter Status:Closed by HARDIK GARCIA MD on 02/13/21[facility] PROGRESSon 98-05-8556JNFTIIRGMLR ID: [id number] Author: Hardik Garcia Service: ? Author Type: Physician Type: Progress Notes Filed: 02/13/2021 11:20 AM Note Text: [facility] NEW EVALUATION Referral source: Yelitza Jones MD [address] [place] [phone] PRINCIPAL NEUROLOGIC DIAGNOSIS: Right arm pain, cognitive [...] expected to be with me at the [facility]. Ms. Madrid notes that in 2016, she had a lot of fatigue and was getting sick frequently. She was sent to an plant assigner and was given the pneumonia vaccine but [...] She has followed with Dr. Castillo in [place] [facility] He recommended Ocrevus. She has discussed this with her liver doctor and gotten the ok to proceed with it. Dr. Castillo has suggested a lumbar puncture, but that has not been done yet. 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 Sensory examination: Light [...] which included preparing to see the patient, pydg-lm-yyae patient care, performing a medically appropriate examination, completing clinical documentation, reviewing records, and counseling/educating the patient/family. Hardik Garcia MD Staff Neurologist [facility] OUTSIDE CD DICOM IMPORT -NBNRon 47-57-4343DH OUTSIDE CD DICOM IMPORT -NBNRImages were obtained outside of [facility] [id number] Medical Specialty [facility] ClevelandMR OUTSIDE CD DICOM IMPORT -NBNRImages were obtained outside of [facility] [id number] Medical Specialty [facility] ClevelandXR OUTSIDE CD DICOM IMPORT -NBNRon 44-22-0080TI OUTSIDE CD DICOM IMPORT -NBNRImages were obtained outside of [facility] [id number] Southeastern Medical CenterJC VIRUS DNA, PCR WHOLE BLOODon 71-52-3411LG Virus DNA,PCR (Whole Blood)NegativeNormalNegativeFirelands Regional Medical Centerment on above:Result Comment: No JCV DNA detected This test was developed and its performance characteristics determined by [employer]. It has not been cleared or approved by the Food and Drug Administration. The FDA has determined that such clearance or approval is not necessary.Performed By: #### JCVPCR ####[facility] [address] [place] [address] KarenQUANTIFERON TB GOLD PLUS (NON-INC)on 54-06-0302KbcrtkmNxtmnmnqac performed.NormalOhiohealth Grady Memorial HospitalComscheurer hospital on above:Performed By: #### QNTTBG ####[facility] S[address] [place] [address] KarenCriteriaComment NormalOhio State University [facility] on above:Result Comment: The QuantiFERON-TB Gold Plus result is determined by subtracting the Nil value from either TB antigen (Ag) tube. The mitogen tube serves as a control for the test.Performed By: #### QNTTBG ####[facility] R[address]wg[address] [place] [address] KarenMitogen Value >10.00NormalThe [facility] on above:Performed By: #### QNTTBG ####[facility] L[address]jdmuhpd[address] [place] [address] KarenNill Value0.17 IU/mLNormalOhiohealth Grady Memorial HospitalComscheurer hospital on above:Performed By: #### QNTTBG ####[facility] [address]vintfkmrm[address] [place] [address]Gerken KarenQuantiferon Gold PlusNegativeNormalNegativeOhiohealth Grady Memorial HospitalComment on above:Performed By: #### QNTTBG ####[facility] Tryfnzntim[address] [place], [place] [address]Fmipwc KarenTB1 Ag Value0.16 IU/mLNormalOhiohealth Grady Memorial HospitalComment on above:Performed By: #### QNTTBG ####[facility] Qsvtvjeqhb[address] [place] [address]Gerken KarenTB2 Ag Value0.17 IU/mLNormalOhiohealth Grady Memorial HospitalComment on above:Performed By: #### QNTTBG ####[facility] We[address]myykxab[address] [place], [place] [address]Gerken KarenHEPATITIS PANEL, ACUTEon 21-97-0548YEvEq ScreenNegative NormalNegativeOhiohealth Grady Memorial HospitalComment on above:Performed By: #### CMP, LIPID #### [facility] Laboratory [address] [place] [address] Dr. Sd Ngo Ab, IgMNegativeNormalNegativeOhiohealth Grady Memorial HospitalComment on above:Performed By: #### CMP, LIPID #### [facility] Laboratory [address] [place] [address] Dr. Sd Michaels Core Ab, IgMNegativeNormalNegCleveland Clinic Comment on above:Performed By: #### CMP, LIPID #### [facility] Laboratory [address] [place] [address] Dr. Sd Rosenberg Virus Ab<0.9Unxzit4.0-0.9Ohiohealth Grady Memorial HospitalComment on above:Result Comment: Negative: < 0.8 Indeterminate: 0.8 - 0.9 Positive: > 0.9 . The CDC recommends that a positive HCV antibody result be followed up with a HCV Nucleic Acid Amplification test (056514).Performed By: #### CMP, LIPID #### [facility] Laboratory [address] [place] [address] Dr. Yilan ChangLYME DISEASE AB, TOTAL AND IGM W/WB REFEon 91-01-0183Lnix Disease Ab, Quant, IgM<0.65Etvmfn0.00-0.79The [facility] on above:Result Comment: Negative <0.80 Equivocal 0.80 - 1.19 Positive >1.19 . IgM levels may peak at 3-6 weeks post infection, then gradually decline.Performed By: #### CMP, LIPID #### [facility] Laboratory [address] [place] [address] Dr. Sd Choi IgG/IgM Ab<0.07Hctvxy4.00-0.90[facility] on above:Result Comment: Negative <0.91 Equivocal 0.91 - 1.09 Positive >1.09Performed By: #### CMP, LIPID #### [facility] Laboratory [address] [place] [address] Dr. Sd JarrettVARICELLA ZOSTER VIRUS IGM QUANTon 16-40-6777Ovqecjrfx-Zoster Ab, IgM<0.65Mvbekn2.00-0.90[facility] on above:Result Comment: Negative <0.91 Borderline 0.91 - 1.09 Positive >1.09Performed By: #### VARCIGM ####[facility] [address] [place] [address]Gerken KarenIMMUNOGLOBULIN IGG QUANTITATIVE on 11-47-5689Lckywtfzugtjpy G, Qn, Wmewe939 mg/uIKpoeli885-3399Wna [facility] CincinnatiComment on above:Performed By: #### CMP, LIPID #### [facility] Laboratory [address] [place] [address] Dr. Sd JarrettIMMUNOGLOBULIN IGM QUANTITATIVEon 99-20-3018Ovvhhqidlhxmfc M, Qn, Jgear833 mg/gUWxivrv11-620Vxc [facility] on above:Performed By: #### CMP, LIPID #### [facility] Laboratory [address] [place] [address] Dr. Sd JarrettVARICELLA IGG ABon 58-23-6868Cywqocpmh Zoster CmI356 indexNormal Immune >165The Hayesville HospitalComment on above:Result Comment: Negative <135 Equivocal 135 - 165 Positive >165 A positive result generally indicates exposure to the pathogen or administration of specific immunoglobulins, but it is not indication of active infection or stage of disease.Performed By: #### CMP, LIPID #### [facility] [address] [place] [address] Dr. Sd Felix AUTO DIFFon [id number] #0.0 103/ulNormal0.0-0.1The [facility] - CincinnatiComment on above:Performed By: #### CMP, LIPID #### [facility] [address] [place] [address] Dr. Sd JarrettBasophils/100 WBC (Bld)0.7 %Normal0.2-2.0[facility] Comment on above:Performed By: #### CMP, LIPID #### [facility] [address] [place] [address] Dr. Sd Stevens #0.2 103/ulNormal0.0-0.7The [facility] CincinnatiComment on above: Performed By: #### CMP, LIPID #### [facility] [address] [place] [address] Dr. Sd Lanosinophils/100 WBC (Bld)4.1 %Normal0.9-7.0[facility] Comment on above:Performed By: #### CMP, LIPID #### [facility] [address] [place] [address] Dr. Sd Lanrythrocyte distribution width (RBC) [Ratio]12.8 %Tboqbj93.0-15.0 The [facility] CincinnatiComment on above:Performed By: #### CMP, LIPID #### [facility] [address] [place] [address] Dr. Sd JarrettHematocrit (Bld) [Volume fraction]38.1 %Npkpdr73.0-48.0[facility] HospitalComment on above:Performed By: #### CMP, LIPID #### [facility] [address] [place] [address] Dr. Sd JarrettHemoglobin (Bld) [Mass/Vol]12.3 g/cHByfjrd62.0-16.0The [facility] CincinnatiComment on above:Performed By: #### CMP, LIPID #### [facility] [address] [place] [address] Dr. Sd Doss #0.02 10e3/ulNormal0.00-0.03The [facility] - CincinnatiComment on above:Performed By: #### CMP, LIPID #### [facility] [address] [place] [address] Dr. Sd Doss %0.5 %Normal0.0-0.5The [facility] CincinnatiComment on above: Performed By: #### CMP, LIPID #### [facility] [address] [place] [address] Dr. Sd Rao #1.2 103/ulNormal1.2-3.8The [facility] CincinnatiComment on above:Performed By: #### CMP, LIPID #### [facility] [address] [place] [address] Dr. Sd Hillhocytes/100 WBC (Bld)26.2 %Kwiudg88.5-60.0The [facility] - CincinnatiComment on above:Performed By: #### CMP, LIPID #### [facility] [address] [place] [address] Dr. Sd AlexanderUAL DIFF REQNONormalThe [facility] - CincinnatiComment on above: Performed By: #### CMP, LIPID #### [facility] [address] [place] [address] Dr. Sd Villarreal (RBC) [Entitic mass]29.1 oaTrgnxj46.7-34.0The [facility] CincinnatiComment on above:Performed By: #### CMP, LIPID #### [facility] [address] [place] [address] Dr. Sd Donnelly (RBC) [Mass/Vol]32.3 g/uPXzmldx11.9-35.2The [facility] CincinnatiComment on above:Performed By: #### CMP, LIPID #### [facility] [address] [place] [address] Dr. Sd Basilio (RBC) [Entitic vol]90.3 oOOompdk41.0-99.0The [facility] CincinnatiComment on above:Performed By: #### CMP, LIPID #### [facility] [address] [place] [address] Dr. Sd De La Torre #0.3 103/ulNormal0.3-0.8The [facility] CincinnatiComment on above:Performed By: #### CMP, LIPID #### [facility] [address] [place] [address] Dr. Sd Urrutiaocytes/100 WBC (Bld)7.2 %Normal1.7-12.0The [facility] Comment on above:Performed By: #### CMP, LIPID #### [facility] [address] [place] [address] Dr. Sd Rose #2.7 103/ulNormal1.4-6.5The [facility] CincinnatiComment on above:Performed By: #### CMP, LIPID #### [facility] [address] [place] [address] Dr. Sd Louisutrophils/100 WBC (Bld)61.3 %Gqkwdj31.0-75.0The [facility] - CincinnatiComment on above:Performed By: #### CMP, LIPID #### [facility] [address] [place] [address] Dr. Sd Ferreira mean volume (Bld) [Entitic vol]9.3 fLCritically low 9.5-13.5The [facility] CincinnatiComment on above:Performed By: #### CMP, LIPID #### [facility] [address] [place] [address] Dr. Sd JarrettPLT177 103/tnTjtghi282-173Abj [facility] CincinnatiComment on above: Performed By: #### CMP, LIPID #### [facility] [address] [place] [address] Dr. Sd JarrettRBC4.22 106/ulNormal4.20-5.40The [facility] CincinnatiComment on above:Performed By: #### CMP, LIPID #### [facility] [address] [place] [address] Dr. Sd JarrettWBC4.4 103/ulNormal4.0-11.0[facility] HospitalComment on above: Performed By: #### CMP, LIPID #### [facility] [address] [place] [address] Dr. Sd JarrettPREG QUANT HCGon 97-24-4635RBX QUANT<1NormalOhiohealth [facility]ady [facility] Hospital Comment on above:Performed By: #### CMP, TSH, PREGQNT #### [facility] [address] [place] [address] Woody KarenHCG RANGESEE [facility] TriPoint Medical CenterComment on above:Result Comment: 5-50 0-1 WEEK 40-300 1-2 WEEKS 100-1,000 2-3 WEEKS 500-6,000 3-4 WEEKS 5,000-200,000 1-2 MONTHS 10,000-100,000 2-3 MONTHS 3,000-50,000 2ND TRIMESTER 1,000-50,000 3RD TRIMESTERPerformed By: #### CMP, TSH, PREGQNT #### [facility] [address] [place] [address] Woody KarenPROF 14(COMP METB)on 47-82-4799Klbvhnn [Mass/Vol]2.8 g/dLCritically low3.5-5.0[facility] HospitalComment on above:Performed By: #### CMP, TSH, PREGQNT #### [facility] [address] [place] [address] Woody KarenAlbumin/Globulin [Mass ratio]0.7 {ratio}NormalOhiohealth Grady Memorial Hospital Comment on above:Performed By: #### CMP, TSH, PREGQNT #### [facility] [address] [place] [address] Woody KarenALP [Catalytic activity/Vol]78 U/IXvpicj73-210OvsOhiohealth Grady Memorial Hospital Comment on above:Performed By: #### CMP, TSH, PREGQNT #### [facility] [address] [place] [address] Woody KarenALT [Catalytic activity/Vol]74 U/LCritically high9-52[facility] HospitalComment on above:Performed By: #### CMP, TSH, PREGQNT #### [facility] [address] [id number] Woody KarenAnion gap [Moles/Vol]10.8 mmol/LNormalThe [facility] CincinnatiComment on above:Performed By: #### CMP, TSH, PREGQNT #### [facility] [address] [address] Woody KarenAST [Catalytic activity/Vol]50 U/LCritically uqpg61-77Iwv [facility] CincinnatiComment on above:Performed By: #### CMP, TSH, PREGQNT #### [facility] [address] [address] Woody KarenBilirubin [Mass/Vol]0.2 mg/dLNormal0.2-1.3TOhioHealth [facility] Comment on above:Performed By: #### CMP, TSH, PREGQNT #### [facility] [address] [address] Woody KarenCalcium [Mass/Vol]8.6 mg/dLNormal8.4-10.2[facility] Comment on above:Performed By: #### CMP, TSH, PREGQNT #### [facility] [address] [place] [address] Woody KarenChloride [Moles/Vol]105 mmol/SFahxhq67-080Cvo [facility] Comment on above:Performed By: #### CMP, TSH, PREGQNT #### [facility] [address] [place], [place] [address] Woody KarenCO2 [Moles/Vol]28.2 mmol/JWpvmep03.0-30.0[facility] Comment on above:Performed By: #### CMP, TSH, PREGQNT #### [facility] [address] [place] [address] Woody KarenCreatinine [Mass/Vol]0.53 mg/dLNormal0.52-1.04The [facility] Comment on above:Performed By: #### CMP, TSH, PREGQNT #### [facility] [address] [address] Woody KarenEGFR-AF MAURITIAN>60Normal>=60The [facility] CincinnatiComment on above: Performed By: #### CMP, TSH, PREGQNT #### [facility] [address] [address] Woody KarenEGFR-NON AF MAURITIAN>60Normal>=60The [facility] CincinnatiComment on above:Performed By: #### CMP, TSH, PREGQNT #### [facility] [address] [place] [address] Woody KarenGlobulin (S) [Mass/Vol]3.9 g/dLNormalThe [facility] CincinnatiComscheurer hospital on above:Performed By: #### CMP, TSH, PREGQNT #### [facility] [address] [place] [address] Woody KarenGlucose [Mass/Vol]99 mg/yZUiyykj25-045Sql [facility] CincinnatiComment on above:Performed By: #### CMP, TSH, PREGQNT #### [facility] [address] [place] [address] Woody KarenPotassium [Moles/Vol]4.0 mmol/LNormal3.4-5.0The [facility] Comment on above:Performed By: #### CMP, TSH, PREGQNT #### [facility] [address] [place] [address] Woody KarenProtein [Mass/Vol]6.7 g/dLNormal6.1-8.2The [facility] Hospitalment on above:Performed By: #### CMP, TSH, PREGQNT #### [facility] [address] [place] [address] Woody KarenSodium [Moles/Vol]140 mmol/KXjqqgb371-711Ygv [facility] Comment on above:Performed By: #### CMP, TSH, PREGQNT #### [facility] [address] [place] [address] Woody KarenUrea nitrogen [Mass/Vol]10.0 mg/dLNormal7.0-17.0The [facility] CincinnatiComment on above:Performed By: #### CMP, TSH, PREGQNT #### [facility] [address] [address] Woody DuenasUrea nitrogen/Creatinine [Mass ratio]18.9 mg/mgMount Carmel Health SystemComment on above:Performed By: #### CMP, TSH, PREGQNT #### [facility] [address] [place] [address] Woody ShuklaHon 25-74-5109RUL1.598 uIU/mLNormal0.470-4.680The [facility] CincinnatiComment on above:Performed By: #### CMP, TSH, PREGQNT #### [facility] [address] [place] [address] Woody ShuklaH RANGESEE BELOWNoACMC Healthcare System GlenbeighComment on above:Result Comment: <0.34 UIU/ml HYPERTHYROID 0.34-5.60 UIU/ml EUTHYROID >5.60 UIU/ml HYPOTHYROIDPerformed By: #### CMP, TSH, PREGQNT #### [facility] [address] [place] [address] Woody DuenasVITAMIN B12on 69-63-6272Jymqzlgir (Vitamin B12) [Mass/Vol]538.0 pg/oBAibzyj240.0-931.0[facility] HospitalComment on above:Performed By: #### VITB12 ####[facility] [address] [address]Woody DuenasMR OUTSIDE CD DICOM IMPORT -NBNRon 76-56-3347YL OUTSIDE CD DICOM IMPORT -NBNRImages were obtained outside of [facility] [id number] HospitalRS-CoV2 ANTIBODIES (IgM, IgG, IgA)on 63-94-1476TVZE-CoV-2 (COVID-19) RNA ROXANA+probe Ql (Unsp spec) NegativeNormalNegativeThe [facility] CincinnatiComment on above:Result Comment: This sample does not contain detectable SARS-CoV-2 antibodies. This negative result does not rule out SARS-CoV-2 infection. Correlation with epidemiologic risk factors and other clinical and laboratory findings is recommended. Serologic results should not be used as the sole basis to diagnose or exclude recent SARS-CoV-2 infection.Performed By: #### CVDABS ####[facility] [address] [place], [place] [address]Yhqjml KarenCovid-19 PCR (CVDTBH)on [id number] StatementSEE BELOWNormal [facility] on above:Result Comment: This test is not yet approved or cleared by the [place] FDA. When there are no FDA-approved or cleared tests available, and other criteria are met, FDA can make tests available under an emergency access mechanism called an Emergency Use Authorization (EUA). The EUA for this test is supported by the [place] of Health and Human Service?s (HHS?s) declaration [...] symptoms consistent with SARS-CoV-2.Performed By: #### CVDTBH ####[facility] [address] [place], [place] [address]Apgoml QxwjuVUPQ-PmC-3 (COVID-19) RNA ROXANA+probe Ql (Unsp spec)Not detectedNormalNOT DETECTEDThe [facility] on above:Result Comment: This test is not yet approved or cleared by the [place] FDA. When there are no FDA-approved or cleared tests available, and other criteria are met, FDA can make tests available under an emergency access mechanism called an Emergency Use Authorization (EUA). The EUA for this test is supported by the [place] of Health and Human Service's (HHS's) declaration [...] longer be used). Performed By: #### CVDTBH ####[facility] [address] [place], [place] [address]Mfdzty KarenMRI KNEE RT WO CONon [id number] KNEE RT WO CONEXAMINATION: MRI KNEE RT [...] Electronically authenticated by: DIANA MONROY Date: 2020-09-11 14:09[facility] SystemCult,Bloodon [id number],BloodSpecimen Description .BLOOD Special Requests R ARM 6 ML Culture NO GROWTH 6 DAYS Report Status FINAL 11/05/2017[facility] HospitalComment on above:Performed By: #### BC ####[address] [place] [address] Cult,BloodSpecimen Description .BLOOD Special Requests LT HAND 5ML Culture NO GROWTH 6 DAYS Report Status FINAL 11/05/2017NormalMercy Moses Lake North Medical CenterComment on above:Performed By: #### BC ####[address] [place] [address] Cult,Bloodon [id number],BloodSpecimen Description .BLOOD Special Requests LT AC 7 ML Culture NO GROWTH 6 DAYS Report Status FINAL 11/04/2017[facility] HospitalComment on above:Performed By: #### BC ####[address] [address] Cult,Bloodon [id number],BloodSpecimen Description .BLOODSpecial Requests RT F ARM 7 MLCulture POSITIVE BLOOD CULTURE, RN NOTIFIED: CATARINO Dunlap AT 0810 ON 10/30/17 DIRECT GRAM STAIN FROM BOTTLE: GRAM POSITIVE COCCI IN CHAINS AND PAIRSPNAFISH negative. Culture results to follow. VIRIDANS STREPTOCOCCUS GROUP SEVERAL MORPHOTYPES Report Status FINAL 11/01/2017[facility] Health InstituteComment on above:Performed By: #### BC ####[address] [address] Cult,Urine,CCon [id number],Urine,CCSpecimen Description .CLEAN CATCH URINESpecial Requests NOT REPORTEDCulture GROUP D ENTEROCOCCUS 10to 50,000 CFU/MLReport Status FINAL 10/30/2017SUSCEPTIBILITYOrganism EGDMethod MICAmpicillin <=2 SUSCEPTIBLEPenicillin NOT REPORTEDCiprofloxacin 1 SUSCEPTIBLEErythromycin NOT REPORTEDGentamicin,High Level NOT REPORTEDLevofloxacin 1 SUSCEPTIBLELinezolid NOT REPORTEDNitrofurantoin <=16 SUSCEPTIBLESynercid NOT REPORTEDStreptomycin,Hi Level NOT REPORTEDTetracycline <=1 SUSCEPTIBLETigecyclineNOT REPORTEDVancomycin 1 SUSCEPTIBLEMagruder Memorial HospitalComment on above:Performed By: #### CCUC ####[address] [place] [address] Progress Noteon [id number] IP Note OR TranscriptionNoKettering HealthBasic Metabolic Profon 10-29-2017(cont.)NormalSalem Regional Medical CenterComment on above:Result Comment: Average GFR for 30-39 years old: 107 mL/min/1.73sq mChronic Kidney Disease: <60 mL/min/1.73sq mKidney failure: <15 mL/min/1.73sq meGFR calculated using average adult body mass. Additional eGFR calculator available at:[email or web address].[email or web address]_[email or web address]-Desert [facility] [address] [place] [address] Performed By: #### CDP, BMP ####[facility] [address] [place] [address] Anion gap12 mmol/LNormal 9-17[facility] Regional Medical CenterComment on above:Performed By: #### CDP, BMP ####[facility] [address] [place] [address] Kukvzzx9.6 mg/dLLow8.6-10.4[facility] Medical CenterComment on above:Performed By: #### CDP, BMP ####[facility] [address] [place] [address] Cqotogeh298 mmol/ENzwyvy20-623PivnaSalem Regional Medical CenterComment on above: Performed By: #### CDP, BMP ####[facility] [address] [place] [address] DY582 mmol/IUmfbku22-50RgaccSalem Regional Medical CenterComment on above:Performed By: #### CDP, BMP ####[facility] [address] [place] [address] Wydrftktrg7.37 mg/dLLow0.50-0.90[facility] Medical CenterComment on above:Performed By: #### CDP, BMP ####[facility] [address] [place] [address] eGFR (non-black) mL/min/{1.73_m2}Normal>60[facility] Medical CenterComment on above: Performed By: #### LUCY, BMP ####[address] [place] [address] Glucose mass conc90 mg/oEViajxh42-82Ipkrl [facility] Community HospitalComment on above:Performed By: #### CDP, BMP ####[address]ia [address] [place] [address] Potassium molar conc4.0 mmol/LNormal 3.7-5.3MercPlumas District HospitalComment on above:Performed By: #### LUCY, BMP ####[address] [place] [address] Wtiioa033 mmol/JKleoby411-644HzycuSalem Regional Medical CenterComment on above:Performed By: #### LUCY, BMP ####[address] [place] [address] Urea nitrogen8 mg/dLNormal6-20[facility] Comment on above:Performed By: #### LUCY, BMP ####[address] [place] [address] BUN/CRE RatioNOT REPORTEDNormal9-20[facility] Medical CenterComment on above:Performed By: #### LUCY, BMP ####[facility] [address] [place] [address] Staging:NOT REPORTED NormalSalem Regional Medical CenterComment on above:Performed By: #### LUCY, BMP ####[address] [place] [address] CBC with Diffon 43-15-0015Znl. Basophil0.03 k/uLNormal0.00-0.20[facility] Medical CenterComment on above:Performed By: #### LUCY, BMP ####[address] [place] [address] Abs.Neutrophil (Seg)3.73 k/uLNormal 1.50-8.10[facility] Medical CenterComment on above:Performed By: #### CDP, BMP ####[address] [address] Basophils/100 WBC Auto (Bld)1 %Normal0-2MercPlumas District HospitalComment on above:Performed By: #### CDP, BMP ####[address] [address] Uwoyxssjejc7.19 10*3/uLNormal0.00-0.44[facility] Medical CenterComment on above:Performed By: #### CDP, BMP ####[address] [address] Eosinophils/100 leukocytes3 %Normal1-4[facility] Medical CenterComment on above:Performed By: #### CDP, BMP ####[address] [address] Erythrocyte distribution width Auto Ratio (RBC)13.1 %Normal 11.8-14.4[facility] Medical CenterComment on above:Performed By: #### CDP, BMP ####[address] [address] Erythrocytes (RBC)3.84 10*6/uLLow3.95-5.11[facility] Comment on above:Performed By: #### CDP, BMP ####[address] [address] Granulocytes/100 WBC (Bld)%Normal0.00-0.30[facility] Medical CenterComment on above:Result Comment: [address] [address] Performed By: #### CDP, BMP ####[address] [address] Hematocrit (HCT)34.9 %Low36.3-47.1MRonald Reagan UCLA Medical CenterComment on above: Performed By: #### CDP, BMP ####[address] [place] [address] Hemoglobin mass conc (Bld)10.6 g/dLLow11.9-15.1MRonald Reagan UCLA Medical CenterComment on above:Performed By: #### CDP, BMP ####[facility] [address] [place] [address] Immature granulocytes #/vol (Bld)0 %Sklaav6ZkbnwSalem Regional Medical CenterComment on above:Performed By: #### CDP, BMP ####[address] [address] Rmtpmcylhqc8.70 10*3/uLNormal1.10-3.70[facility] Medical CenterComment on above:Performed By: #### CDP, BMP ####[facility] Hospitalbrandi [address] [address] Lymphocytes/100 optzksxccg22 %Bwjhfc58-65QwlhiSalem Regional Medical CenterComment on above: Performed By: #### CDP, BMP ####[facility] Hospitalbrandi [address] [address] BIS60.6 caRogqur98.2-33.5[facility] Comment on above:Performed By: #### CDP, BMP ####[facility] Hospitalbrandi [address] [place] [address] MCHC mass conc (RBC)30.4 g/gOCzrsko43.4-34.8 [facility] Medical CenterComment on above:Performed By: #### CDP, BMP ####[facility] [address] [place] [address] ZZY22.9 fL Yaimcc03.6-102.9[facility] Medical CenterComment on above:Performed By: #### LUCY, BMP ####[address] [address] Monocytes0.36 10*3/uLNormal0.10-1.20[facility] Medical CenterComment on above:Performed By: #### LUCY, BMP ####[address] [address] Monocytes/100 leukocytes6 %Normal3-12[facility] Medical CenterComment on above:Performed By: #### LUCY, BMP ####[address] [address] Neutrophil (Seg)62 % Cfkrlt50-76QbqxiSalem Regional Medical CenterComment on above:Performed By: #### LUCY, BMP ####[address] [address] Platelet mean volume (PMV)9.9 fLNormal8.1-13.5[facility] Comment on above:Performed By: #### LUCY, BMP ####[address] [phone] 10*3/hLUevkjw592-075JspivSalem Regional Medical CenterComment on above:Performed By: #### LUCY, BMP ####[address] [address] WBC (Leukocytes)6.0 10*3/uLNormal3.5-11.3MRonald Reagan UCLA Medical CenterComment on above:Performed By: #### LUCY, BMP ####[address] [address] Auto Diff PerformedNOT REPORTEDMagruder Memorial HospitalComment on above:Performed By: #### LUCY, BMP ####[address] [phone] morphologyNOT REPORTEDRiverview Health InstituteComment on above:Performed By: #### LUCY, BMP ####[address] [place] [address] PlateletsNOT REPORTEDMagruder Memorial HospitalComment on above:Performed By: #### LUCY, BMP ####[address] [place] [address] WBC MorphologyNOT REPORTEDMagruder Memorial HospitalComment on above:Performed By: #### LUCY, BMP ####[address] [place], [place] [phone] Summaryon [id number] IP Note OR Emergency Medical Service Manager NormalSalem Regional Medical CenterHistory and Physicalon [id number] IP Note OR TranscriptionNormWilson Street HospitalUA w/Reflex Cultureon [id number] (direct)NegativeAbTrumbull Regional Medical Center Comment on above:Performed By: #### CORBIN ROSE ####[address] [place] [address] CommentCulture ordered based on defined criteria.[facility] Memorial HospitalComment on above:Result Comment: [address] [place] [address] [phone] By: #### CORBIN ROSE ####Tia [address] [place] [address] Acetaminophen mass concLARGEAbsouthpointe hospitalalCleveland Clinic Akron GeneralComment on above:Performed By: #### CORBIN ROSE ####Apolloy Itkrxoapgvau6639 [place] [address] Hemoglobin mass conc (Bld)NegativeFreeman Orthopaedics & Sports MedicinealCleveland Clinic Akron GeneralComment on above:Performed By: #### CORBIN ROSE ####[facility] U[address]uy[address]cs[address]qp[address] [place], [place] [phone],UrPositiveAbnormalNEGSalem Regional Medical Center Comment on above:Performed By: #### MILTON UMSARAO ####[facility] Berxpueeyphg61[address] [place], [place] [phone]LEARSalem Regional Medical CenterComment on above:Performed By: #### CORBIN ROSE ####[facility] Hvkpiknyaxlr15[address] [place], [place] [phone], colorDARK YELLOW AbnormalYELMerPorterville Developmental CenterComment on above:Performed By: #### CORBIN ROSE ####Tia Bfqs[address]ujyur[address]50 [place] [address] Urine, glucose presenceNegativeNoatrium health stanlyNEGSalem Regional Medical CenterComment on above:Performed By: #### CORBIN ROSE ####Ap[address] Ooyfhqiowuhe6[address] [place], [place] [phone], leukocyte esterase presenceTRACEAbnoal NEGSalem Regional Medical CenterComment on above:Performed By: #### MILTON UMJOANNE ####Tia Wmslvfvgkhmc9464 [place], [place] [phone], pH6.5 [pH]Normal5.0-8.0MerPorterville Developmental CenterComment on above: Performed By: #### MILTON UMICAO ####[facility] Jyrexzivdibe77[address] [place], [place] [phone], protein presence3+AbnormalNEGSalem Regional Medical CenterComment on above:Performed By: #### MILTON, UMICAO ####[facility] Fvzfdatvqotf7597 [place], [place] [phone])[phone], specific gravity1.023Normal 1.005-1.030MerOzark Health Medical Centerent Medical CenterComment on above:Performed By: #### MILTON UMSARAO ####[address] [address] Urobilinogen,UrNormalNormalNORMSalem Regional Medical CenterComment on above: Performed By: #### MILTON UMSARAO ####[address] [address] Urinalysis,Microon 06-52-5708Xjvdt, crystals in sedimentFEW AbnormalNONEMeMammoth HospitalComment on above:Result Comment: URIC ACIDPerformed By: #### KEHINDE ROSEO ####[address] [address] Urine, yeast presence in sedimentFEWAbnormalBANNERE [facility] Medical CenterComment on above:Result Comment: [address] [address] Performed By: #### MILTON UMSARAO ####[address] [address] -----NormalSalem Regional Medical CenterComment on above:Performed By: #### MILTON UMICAO ####[address] [address] Urine WBC's2 TO 4Xabhdj1-2OgeamSalem Regional Medical CenterComment on above: Performed By: #### UAFitz, UMICAO ####[address] [address] Urine, epithelial cells in jbreojdc44 TO 24Nnhqxq2-3MgmgeSalem Regional Medical CenterComment on above:Performed By: #### UAFitz, UMICAO ####[facility] Nlfxsrailgpb[address] [place] [address] Urine, erythrocytes0 TO 3Coawos6-8BwfvdSalem Regional Medical CenterComment on above:Result Comment: Reference range defined for non-centrifuged specimen.Performed By: #### MILTON, CORBIN ####T[address] Wvizdlgpjjzs9167 [place] [address] Epithelial, RenalNOT QQQFQNAHTlnice7Sovwr[address] [place], [place] [address]Comment on above:Performed By: #### MILTON, CORBIN ####[address] Tlmnjphxtsiq3759 [place], [place] [phone] StrandsNOT REPORTEDOhioHealth Shelby HospitalComment on above:Performed By: #### MILTON, CORBIN ####[facility] Qbbmezinynwb[address] [place], [place] [phone] ObservationsNOT REPORTEDNormalNRMetroHealth Parma Medical CenterComment on above:Performed By: #### CORBIN ROSE ####[facility] [address]yb[address]gs[address] [place] [phone] REPORTEDNoalAdena Regional Medical CenterComment on above:Performed By: #### MILTON, UMSARAO ####[facility] [address]zt[address] [place], [place] [phone], amorphous sediment presence in sedimentNOT REPORTEDOhioHealth Shelby HospitalComment on above: Performed By: #### MILTON, UMICAO ####[facility] Sdhoddjhgalf[address] [place] [address] Urine, bacteria in sedimentNOT REPORTEDOhioHealth Shelby HospitalComment on above:Performed By: #### UAFitz, UMICAO ####[facility] Vomkszshevcj[address] [place], [place] [phone], casts in sediment NOT REPORTEDNormal08Salem Regional Medical CenterComment on above:Performed By: #### UAFitz, UMICAO ####[facility] Jxbsflayopkw9974 [place] [phone] Metabolic Profon 10-28-2017(cont.)NormalSalem Regional Medical CenterComment on above:Result Comment: Average GFR for 30-39 years old: 107 mL/min/1.73sq mChronic Kidney Disease: <60 mL/min/1.73sq mKidney failure: <15 mL/min/1.73sq meGFR calculated using average adult body mass. A dditional eGFR calculator available at:http://[email or web address]/multiple_crcl_2012.htm[address] [address] Performed By: #### CDP, BMP ####[facility] [address] [address] Anion gap12 mmol/LNormal 9-17Sal[facility] Regional Medical CenterComment on above:Performed By: #### CDP, BMP ####[facility] Loncgdurabyq[address] [place] [address] Wedglpk3.4 mg/dLLow8.6-10.4[facility] Medical CenterComment on above:Performed By: #### CDP, BMP ####[facility] [address]pluarkqpx[address] [place] [address] Higgxlcw66 mmol/XKvzmjf90-128GownxSalem Regional Medical CenterComment on above: Performed By: #### CDP, BMP ####[facility] [address]wpce[address]ql[address] [place] [address] ST329 mmol/KBghhbn57-77WihzkSalem Regional Medical CenterComment on above:Performed By: #### CDP, BMP ####[facility] Hfbwvhxiezdm6037 [place] [address] Gmximnumqb7.44 mg/dLLow0.50-0.90[facility] Medical CenterComment on above:Performed By: #### CDP, BMP ####[facility] [address] [place] [address] eGFR (non-black) mL/min/{1.73_m2}Normal>60[facility] Medical CenterComment on above: Performed By: #### LUCY, BMP ####Tia Cheng[address] [place] [address] Glucose mass lgaf045 mg/tZUgik57-94HvsewRonald Reagan UCLA Medical CenterComment on above:Performed By: #### LUCY, BMP ####Tia Cheng[address] [place] [address] Potassium molar conc3.5 mmol/LLow3.7-5.3 [facility] Medical CenterComment on above:Performed By: #### LUCY, BMP ####[facility] Hospitalbrandi Suxbuwybfobi[address] [place] [address] Zhxccp513 mmol/NTczkfo805-973PqybvSalem Regional Medical CenterComment on above:Performed By: #### LUCY, BMP ####[facility] [address]ejmzxnaiony[address] [place] [address] Urea yibgtgeh52 mg/dLNormal6-20[facility] Medical CenterComment on above:Performed By: #### LUCY, BMP ####[facility] Oaronpwdgeid[address] [place] [address] BUN/CRE RatioNOT REPORTEDNormal9-20[facility] Medical CenterComment on above:Performed By: #### LUCY, BMP ####[facility] Qnjxjb[address] [place] [address] Staging:NOT REPORTED NormalSalem Regional Medical CenterComment on above:Performed By: #### LUCY, BMP ####[facility] Ajdjadejgcnl[address] [place] [address] CBC with Diffon 26-93-5578Fkw. Basophil0.03 k/uLNormal0.00-0.20[facility] Medical CenterComment on above:Performed By: #### LUCY, BMP ####Tia Qjewiwehkhrv1883 [place] [address] Abs.Neutrophil (Seg)5.25 k/uLNormal 1.50-8.10[facility] Medical CenterComment on above:Performed By: #### CDP, BMP ####Tia [address] [address] Basophils/100 WBC Auto (Bld)0 %Normal0-2MercPlumas District HospitalComment on above:Performed By: #### CDP, BMP ####[address] [address] Kmwddgfdmdd6.17 10*3/uLNormal0.00-0.44[facility] Medical CenterComment on above:Performed By: #### CDP, BMP ####[address] [address] Eosinophils/100 leukocytes2 %Normal1-4[facility] Medical CenterComment on above:Performed By: #### CDP, BMP ####[address] [address] Erythrocyte distribution width Auto Ratio (RBC)13.2 %Normal 11.8-14.4[facility] Medical CenterComment on above:Performed By: #### CDP, BMP ####[address] [address] Erythrocytes (RBC)4.39 10*6/uLNormal3.95-5.11[facility] Comment on above:Performed By: #### CDP, BMP ####[address] [address] Granulocytes/100 WBC (Bld)0.03 k/uLNormal 0.00-0.30[facility] Medical CenterComment on above:Result Comment: [facility] Meaningfy [address] [place] [address] Performed By: #### LUCY, BMP ####[facility] Hospitalbrandi [address] [address] Hematocrit (HCT)38.7 %Typhyr89.3-47.1MRonald Reagan UCLA Medical CenterComment on above:Performed By: #### LUCY, BMP ####[facility] Hospitalbrandi [address] [phone] mass conc (Bld)12.2 g/aKWxauqz06.9-15.1MRonald Reagan UCLA Medical CenterComment on above:Performed By: #### LUCY, BMP ####[address] [phone] granulocytes #/vol (Bld)0 %Rvhddx3HdldoSalem Regional Medical CenterComment on above:Performed By: #### LUCY, BMP ####[address] [phone] 10*3/uLNormal1.10-3.70[facility] Medical CenterComment on above:Performed By: #### LUCY, BMP ####[address] [address] Lymphocytes/100 qzkuphmtcu13 %Rpk71-52EvhyxSalem Regional Medical CenterComment on above:Performed By: #### LUCY, BMP ####[address] [phone] rcCaagrd85.2-33.5[facility] Comment on above:Performed By: #### LUCY, BMP ####[address] [phone] mass conc (RBC)31.5 g/jZAuzdxy25.4-34.8 [facility] Medical CenterComment on above:Performed By: #### LUCY, BMP ####[address] [place] [phone] fL Fdsrcr24.6-102.9[facility] Medical CenterComment on above:Performed By: #### LUCY, BMP ####[address] [place] [address] Monocytes0.44 10*3/uLNormal0.10-1.20[facility] Medical CenterComment on above:Performed By: #### LUCY, BMP ####[facility] [address]rg[address] [place] [address] Monocytes/100 leukocytes6 %Normal3-12[facility] Medical CenterComment on above:Performed By: #### LUCY, BMP ####[facility] [address] [place] [address] Neutrophil (Seg)70 %High 36-65[facility] Medical CenterComment on above:Performed By: #### LUCY, BMP ####[facility] [address]vaszmb[address]rco[address] [place] [address] Platelet mean volume (PMV)9.6 fLNormal8.1-13.5[facility] Medical CenterComment on above:Performed By: #### LUCY, BMP ####[address] [address] Gjboaosca675 10*3/mSLeht763-767EaggePorterville Developmental CenterComment on above:Performed By: #### LUCY, BMP ####Tia Ttdtmqkzfalk1630 [place] [address] WBC (Leukocytes)7.6 10*3/uLNormal3.5-11.3 [facility] Medical CenterComment on above:Performed By: #### LUCY, BMP ####[facility] K[address]rwygnehips[address] [place] [address] Auto Diff PerformedNOT REPORTEDNormalSalem Regional Medical CenterComment on above: Performed By: #### CDP, BMP ####[facility] B[address]sxwtcbwia[address] [place] [address] Erythrocyte morphologyNOT REPORTEDNormalSalem Regional Medical CenterComment on above:Performed By: #### CDP, BMP ####[facility] [address]wyb[address]wjxo[address] [place] [address] PlateletsNOT REPORTED NormalMerPorterville Developmental CenterComment on above:Performed By: #### CDP, BMP ####[facility] Xfoyqxwqufpo0659 [place] [address] WBC MorphologyNOT REPORTEDMagruder Memorial HospitalComment on above: Performed By: #### CDP, BMP ####[facility] Gbuxmcnprfqd44[address] [place] [address] ED Noteon 13-18-4195MDC IP Note OR TranscriptionNormalSalem Regional Medical CenterHIM IP Note OR TranscriptionNormalSalem Regional Medical CenterHIM IP Note OR TranscriptionNormalSalem Regional Medical Center HIM IP Note OR TranscriptionNormalTrinity Health System Twin City Medical Centercy [facility] Provider Noteon 49-55-9547DNZ IP Note OR TranscriptionNoKettering Health Vital Signs Date TimeVital SignValuePerforming PgovvnyzlQgngybtj93-61-7424 12:11040Body mass index (BMI) [Ratio]23.56 kg/n1AvpqnjlsnbSammi Estrada DATA CONTROL CLERK Work Phone: [facility] CenterYckuaduzdt23-13-4752 12:11040Body htfacb96.33 kgSammi Estrada DATA CONTROL CLERK Work Phone: [facility] CenterFgmqroienl55-74-9255 12:11-040Diastolic blood uvjvtlfs55 mm[Hg]Sammi Estrada DATA CONTROL CLERK Work Phone: noSoutheast Missouri HospitalPseppscljm32-83-5505 12:11-0400Respiratory rate18 /minSammi Estrdaa DATA CONTROL CLERK Work Phone: [facility] CenterKpfcimkgsy89-95-5133 12:11-5913EwG5% (BldA) [Mass fraction]98 %Sammi Yusufi DATA CONTROL CLERK Work Phone: [facility] CenterVirokoyplh83-48-5976 12:11-0400Systolic blood bgdyloyr294 mm[Hg]Sammi Rockiani DATA CONTROL CLERK Work Phone: [facility] CenterVcoffwlofv97-63-5265 15:30-0500Body wkmqeu798 cm Sammi Rockiani DATA CONTROL CLERK Work Phone: [phone] [place], [place] [address]Wpworgfszp83-99-2099 15:30-0500Body mass index (BMI) [Ratio]24.98 kg/k7Jjcaivrylw Graziani DATA CONTROL CLERK Work Phone: [phone] CenterJrrmbfpycl24-20-6508 15:30-0500Body .96 kgJacmarisela Rockiani DATA CONTROL CLERK Work Phone: [phone] CenterNcnlbyevpr74-34-4547 15:30-0500Diastolic blood mm[Hg]Sammi Pranaviani DATA CONTROL CLERK Work Phone: [phone] CenterKpvssoprlb15-38-7146 15:30-0500Systolic blood herlytzb038 mm[Hg]Sammi Rockiani DATA CONTROL CLERK Work Phone: [phone] CenterLpinoxurbk54-78-3460 10:30-0500Body .48 cmD[facility]11-08-2024 10:30-0500Body mass index (BMI) [Ratio]25.7 kg/m2EshnysjzuDiley Ridge Medical Center11-08-2024 10:30-0500Body hqyigc42.95 kgDiley Ridge Medical Center11-08-2024 10:30-0500Diastolic blood ebuabffs28 mm[Hg][facility]11-08-2024 10:30-0500 Heart cctz732 /minDiley Ridge Medical Center11-08-2024 10:30-0500Systolic blood prspzvoo321 mm[Hg][facility]11-07-2024 10:43-0500 Body hkabrd427 cmEfrain Jean Baptiste MD Work Phone: [facility] CenterGvwlgdhtch06-79-0827 10:43-0500Body mass index (BMI) [Ratio]25.33 kg/b1SvygednEfrain Jean Baptiste MD Work Phone: [facility] CenterRztuquswma97-63-7248 10:43-0500Body jhmceo69.86 kgEfrain Jean Baptiste MD Work Phone: [phone] [place], [place] [address]Iimugilhjy82-04-5735 13:10-0400Body ucwnfz033 cm Sammi Yusufi DATA CONTROL CLERK Work Phone: [phone] [place], [place] [address]Jmfbkfdezj24-91-4653 13:10-0400Body mass index (BMI) [Ratio]24.8 kg/h3Uwvbcwjnei Graziani DATA CONTROL CLERK Work Phone: [phone] [place], [place] [address]Usugkwctno51-21-7566 13:10-0400Body .5 kg Sammi Yusufi DATA CONTROL CLERK Work Phone: [phone] [place], [place] [address]Yajjrafasy33-17-0391 13:10-0400Diastolic blood ixnnyyar58 mm[Hg]Sammi Rockiani DATA CONTROL CLERK Work Phone: [phone] [place], [place] [address]Vusshcggpd58-57-8847 13:10-0400Systolic blood mm[Hg]Sammi Pranaviani DATA CONTROL CLERK Work Phone: [phone] [place], [place] [address]Jrvgcrsubh20-99-8153 11:20-0400Body .48 cmD[facility] Center04-03-2024 11:20-0400Body mass index (BMI) [Ratio]25.6 kg/x3RhxyvoxtwDiley Ridge Medical Center04-03-2024 11:20-0400Body .5 [degF][facility]04-03-2024 11:20-0400Body ylotel69.5 kgDiley Ridge Medical Center04-03-2024 11:20-0400Diastolic blood xmnnnoqn51 mm[Hg][facility]04-03-2024 11:20-0400 Heart yidu488 /[facility]04-03-2024 11:20-0400 Respiratory rate18 /[facility]04-03-2024 11:20-0400 SaO2% (BldA) [Mass fraction]98 %[facility]04-03-2024 11:20-0400Systolic blood uivdsbdf152 mm[Hg][facility] 12-25-2023 13:40-0500Body xrumpv644.5 cmSammi Estrada DATA CONTROL CLERK Work Phone: [facility] CenterTbsyrlbkym37-91-6367 13:40-0500Body mass index (BMI) [Ratio]25.61 kg/r5TinkybmrxiSammi Yusufi DATA CONTROL CLERK Work Phone: [facility] CenterRcdwavexhu63-87-6975 13:40-0500Body hlbayb46.5 kg Sammi Yusufi DATA CONTROL CLERK Work Phone: [facility] CenterIhgfmckhet02-05-9968 13:40-0500Diastolic blood ofvershy28 mm[Hg]Sammi Yusufi DATA CONTROL CLERK Work Phone: [facility] CenterBzwevvqbtn23-73-7614 13:40-0500Systolic blood ghngdyyf067 mm[Hg]Sammi Yusufi DATA CONTROL CLERK Work Phone: [facility] CenterLedzoccpgt19-81-9310 16:30-0500Body jmyqjh006.48 cmPamela Linda Other [facility]01-05-2024 16:30-0500 Body mass index (BMI) [Ratio]26.01 kg/o5AprvgoLuisa Mckeon Other [employer] Other 01-05-2024 16:30-0500Body wlmokoaqaho55 [degF]Luisa Linda Other [employer] Other 01-05-2024 16:30-0500Body ikfpyx51.5 kgLuisa Mckeon Other [facility]01-05-2024 16:30-0500 Respiratory rate18 /minLuisa Mckeon Other [employer] Other 01-05-2024 16:30-1849YmH9% (BldA) [Mass fraction]97 % Luisa Mckeon Other [employer] Other 12-26-2023 15:00-0500Body npirff593.48 cmJannettejared Karen Other [employer] Other 12-26-2023 15:00-0500Body mass index (BMI) [Ratio] 26.12 kg/q7Lxvnec Karen Other [employer] Other 12-26-2023 15:00-0500Body pnynzdrsnht32.3 [degF]Yelitza Jones Other [employer] Other 12-26-2023 15:00-0500Body .77 kgJannettejared Karen Other [employer] Other 12-26-2023 15:00-0500Diastolic blood afyabnpe25 mm[Hg] Yelitza Jones Other [employer] Other 12-26-2023 15:00-0500Systolic blood yzigqrim039 mm[Hg] Yelitza Jones Other [facility] Other 11-30-2023 09:50-0500Body .48 cmAmanda Kari Other [employer] Other 11-30-2023 09:50-0500Body mass index (BMI) [Ratio] 27.43 kg/e6Dhsrad Kari Other [employer] Other 11-30-2023 09:50-0500Body uchxrbgsipo26.1 [degF]Hilary Kari Other [employer] Other 11-30-2023 09:50-0500Body uwqtgq40.04 kgAmanda Kari Other [employer] Other 11-30-2023 09:50-0500Respiratory rate18 /minAmanda Kari Other [employer] Other 11-30-2023 09:50-7845YyB5% (BldA) [Mass fraction]99 % Hilary Kari Other [employer] Other 09-19-2023 09:45-0400Body .48 cmYelitza Jones Other [employer] Other 09-19-2023 09:45-0400Body mass index (BMI) [Ratio] 26.15 kg/t1WhetcjYelitza Jones Other [employer] Other 09-19-2023 09:45-0400Body hnvunfjyfzc29.2 [degF]Yelitza Jones Other [employer] Other 09-19-2023 09:45-0400Body molguu61.86 kgYelitza Jones Other [employer] Other 09-19-2023 09:45-0400Diastolic blood mm[Hg] Yelitza Jones Other [employer] Other 09-19-2023 09:45-0400Systolic blood mm[Hg] Yelitza Jones Other [employer] Other 05-01-2023 10:30-0400Body qiqjqp290.48 cmYelitza Jones Other [employer] Other 05-01-2023 10:30-0400Body mass index (BMI) [Ratio] 28.16 kg/b8Przwgr Braun Other [facility] Other 05-01-2023 10:30-0400Body ftytqohdpww34.6 [degF]Yelitza Karen Other [employer] Other 05-01-2023 10:30-0400Body gjeqdv32.85 kgYelitza Karen Other [facility] Other 05-01-2023 10:30-0400Diastolic blood maoqiuoj76 mm[Hg] Yelitza Jones Other [employer] Other 05-01-2023 10:30-7155CwG3% (BldA) [Mass fraction]99 % Yelitza Jones Other [employer] Other 05-01-2023 10:30-0400Systolic blood npzsesdd700 mm[Hg] Yelitza Jones Other [facility] Other Encounters Encounter DateEncounter TypeCare ProviderFacilityStart: 09-04-2025 End: 96-07-5341XaenqmJfsoifz W Bauer MD Work Phone: [facility] 210Comment on above: Intractable chronic migraine without aura and without status migrainosus; ADD (attention deficit disorder) without hyperactivityStart: 08-02-2025 End: 91-84-9868PqmjghOhpwclf W Bauer MD Work Phone: [facility] 210Comment on above:ADD (attention deficit disorder) without hyperactivityStart: 07-15-2025 End: 44-91-9942Atdzzq flowsheetJarrodcqueline Melva Yusufi DATA CONTROL CLERK Work Phone: noms NEUROLOGYStart: 07-15-2025 End: 28-55-8393Vnbaue flowsheetJarrodcwilline Melva Yusufi DATA CONTROL CLERK Work Phone: noms NEUROLOGYStart: 07-15-2025 End: 35-60-2326Wyxinv outpatient visit 15 minutesAmyline Melva Yusufi DATA CONTROL CLERK Work Phone: [facility]oms [place] NeurologyComment on above:Intractable chronic migraine without aura and without status migrainosus (Primary Dx)Start: 07-15-2025 End: 80-90-4016xzcdprmcwtLQUNCVHZJE Melva YUSUFINot AvailableStart: 07-04-2025 End: 47-51-4837EugrkzHjyuvncyoi Melva Yusufi DATA CONTROL CLERK Work Phone: [facility] 210Comment on above:ADD (attention deficit disorder) without hyperactivityStart: 06-15-2025 End: 17-82-4005JftvbdYreiivdjbn Melva Yusufi DATA CONTROL CLERK Work Phone: [facility] [place] NeurologyComment on above:Intractable chronic migraine without aura and without status migrainosusStart: 06-03-2025 End: 27-66-4402GuuusyZntpcldtmd Melva Yusufi DATA CONTROL CLERK Work Phone: noms [facility] 210Comment on above:ADD (attention deficit disorder) without hyperactivityStart: 06-01-2025 End: 35-39-0341AbetbgAnommxsfqi Melva Rockiani DATA CONTROL CLERK Work Phone: [facility] 210Comment on above:ADD (attention deficit disorder) without hyperactivityStart: 05-06-2025 End: 42-39-9416NntpgyZhcxrcsrpr Melva Rockiani DATA CONTROL CLERK Work Phone: noms [facility] 210Comment on above:ADD (attention deficit disorder) without hyperactivityStart: 04-07-2025 End: 54-99-1183HdrzuzPqasenu W Bauer MD Work Phone: [facility] 210Comment on above:ADD (attention deficit disorder) without hyperactivityStart: 03-25-2025 End: 83-96-5251Fetkdbgz Result EncounterAmycrystal Melva Estrada DATA CONTROL CLERK Work Phone: noms External Department UnsolicitedStart: 03-25-2025 End: 35-49-2523Qoyhdbax Result EncounterAmycrystal Melva Estrada DATA CONTROL CLERK Work Phone: noms External Department UnsolicitedStart: 03-24-2025 End: 10-44-2462Qvnygy outpatient visit 15 minutesAmycrystal Melva Estrada DATA CONTROL CLERK Work Phone: [facility]oms [facility] NEURComment on above:Intractable chronic migraine without aura and without status migrainosus (CMS/HCC) (Primary Dx); Cognitive decline; Other specified hypothyroidism; Autoimmune disease (CMS/HCC)Start: 03-24-2025 End: 89-51-0819hryhnxaoqoAZLHDFDYDR Melva Vickyt AvailableStart: 03-24-2025 End: 90-57-2070Skrpza flowsheetJarrodhank Melva Estrada DATA CONTROL CLERK Work Phone: noms NEUROLOGYStart: 03-24-2025 End: 21-34-8480Scueun flowsLiamhank Melva Estrada DATA CONTROL CLERK Work Phone: noms NEUROLOGYStart: 03-10-2025 End: 21-53-9915AtjwqwKvaehtk W Bauer MD Work Phone: [facility] NEUR[facility] 210Comment on above:ADD (attention deficit disorder) without hyperactivityStart: 02-08-2025 End: 13-48-2924XgiusvOlstoaw C Windnagel DATA CONTROL CLERK Work Phone: n[facility] NEUR[facility] 210Comment on above:ADD (attention deficit disorder) without hyperactivityStart: 01-25-2025 End: 69-59-4717chnkcdzorxBVVFQAB G TESMONDNot AvailableStart: 01-06-2025 End: 92-72-1133RmhysfHczljki W Bauer MD Work Phone: n[facility] NEURO 210Comment on above:ADD (attention deficit disorder) without hyperactivityStart: 12-09-2024 End: 69-58-4894Gvmbpu outpatient visit 15 minutesJahank Melva Rockginny DATA CONTROL CLERK Work Phone: noms [facility] NEURComment on above:Intractable chronic migraine without aura and without status migrainosus (CMS/HCC) (Primary Dx); Autoimmune disease (CMS/HCC)Start: 12-09-2024 End: 71-28-3637qrglxzhwueIWQIBSSJIN Melva OHINot AvailableStart: 12-09-2024 End: 68-01-2747Arpndu flowsheetJarrodcwilline Melva Yusufi DATA CONTROL CLERK Work Phone: noms NEUROLOGYStart: 12-09-2024 End: 95-05-0498Lxlcnl flowsheetJarrodcwilline Melva Estrada DATA CONTROL CLERK Work Phone: noms NEUROLOGYStart: 12-05-2024 End: 53-93-9240ZuwlmyEywxtua W Bauer MD Work Phone: noms [facility] NEURO 210Comment on above:ADD (attention deficit disorder) without hyperactivityStart: 10-27-2024 End: 02-20-0135XcypzgLrfcxdy W Bauer MD Work Phone: noms [facility] NEURO 210Comment on above:ADD (attention deficit disorder) without hyperactivityStart: 10-11-2024 End: 47-13-8189pehwbrynfqGdminf M BaileyFacility:[facility]tart: 09-17-2024 End: 42-85-4843Ezcrqzior Result EncounterEfrain Jean Baptiste MD Work Phone: noms External Department UnsolicitedStart: 09-17-2024 End: 61-70-0050Wiccwlfzv Result EncounterEfrain Jean Baptiste MD Work Phone: noms External Department UnsolicitedStart: 09-17-2024 End: 45-97-9919iwcaeksmwrItzzkkyaaSumma Health Work Phone: Start: 09-17-2024 End: 06-16-8030Bahnhwd encounter procedureCentral [facility] Work Phone: Start: 09-16-2024 End: 44-08-6343Bqargkmellisa Jean Baptiste MD Work Phone: noms NEUROLOGYStart: 09-16-2024 End: 23-81-6128Ysppsl Magdiel Jean Baptiste MD Work Phone: noms NEUROLOGYStart: 09-16-2024 End: 87-04-1090vvnkdbihnfSBINNOW W BAUERNot AvailableStart: 09-16-2024 End: 30-10-3163Nxjlak outpatient visit 25 minutesBrechase Jean Baptiste MD Work Phone: noms SWS NEURComment on above:Chronic migraine without aura, not intractable, without status migrainosus (CMS/HCC) (Primary Dx); Chiari malformation type I (CMS/HCC); ADD (attention deficit disorder) without hyperactivity; Demyelinating disease of central nervous system (HCC) (CMS/HCC)Start: 09-15-2024 End: 90-07-3334SjggesBbfomqx W Bauer MD Work Phone: noms [facility] NEURO 210Comment on above:ADD (attention deficit disorder) without hyperactivityStart: 08-26-2024 End: 22-32-8181VsabftQpihzcygae M Graziani DATA CONTROL CLERK Work Phone: noms [facility] NEURO 210Comment on above:ADD (attention deficit disorder) without hyperactivityStart: 08-19-2024 End: 68-82-1352HoewppOyeeimymxd M Graziani DATA CONTROL CLERK Work Phone: noms SWS NEURComment on above:Intractable chronic migraine without aura and without status migrainosus (CMS/HCC) (Primary Dx) Start: 07-27-2024 End: 34-99-9115Gfqodprgv Yasmin Frye Graziani DATA CONTROL CLERK Work Phone: noms H NEURO 210Start: 07-23-2024 End: 67-24-3448NematsYczwpjjnoz M Graziani DATA CONTROL CLERK Work Phone: noms SWS NEURComment on above:ADD (attention deficit disorder) without hyperactivityStart: 07-15-2024 End: 18-01-3340Qgdlpz flowsheetJarrodhank Melva Estrada DATA CONTROL CLERK Work Phone: noms BM NEUROLOGYStart: 07-15-2024 End: 52-20-5272Hsnvfl flowsheetJarrodadriannewilcrystal Melva Estrada DATA CONTROL CLERK Work Phone: noms BM NEUROLOGYStart: 07-15-2024 End: 43-01-6728Lomjno outpatient visit 15 minutesAmycrystal Melva Estrada DATA CONTROL CLERK Work Phone: noms SWS NEURComment on above:Intractable chronic migraine without aura and without status migrainosus (CMS/HCC) (Primary Dx); Autoimmune disease (CMS/HCC)Start: 03-10-2024 End: 74-79-1413tvdqnioeneGhilyy E BraunFacility:[facility] Hospitaltart: 03-04-2024 End: 62-10-5631wbasbjzimgZgojce Jonh [facility]Pro[facility] Work Phone: Start: 03-04-2024 End: 96-02-2509Ddwkivqi ReferredMD Umberto Jung Work Phone: [facility]-LAB Path Spec Shaquille HospStart: 02-11-2024 End: 29-68-6618rkgzvgldncSjjoygfml [facility] Work Phone: Start: 02-11-2024 End: 67-65-9318Uvxzbhm encounter procedureCentral [facility] Billy Work Phone: Start: 68-42-6564Lqw-patient / Non-visitCentral [facility]ett [facility] Work Phone: Start: 60-69-5489Wwrtzo flowsheetSammi Estarda DATA CONTROL CLERK Work Phone: noms BM NEUROLOGYStart: 88-68-1512Hxmfmf flowsheet Sammi Estrada DATA CONTROL CLERK Work Phone: noms BM NEUROLOGYStart: 12-25-2023 End: 01-78-7579Uvnrulw encounter procedureJahank Estrada DATA CONTROL CLERK Work Phone: noms SWS NEURComment on above:Intractable chronic migraine without aura and without status migrainosus (CMS/HCC) (Primary Dx); ADD (attention deficit disorder) without hyperactivityStart: 11-14-2023 End: 93-07-9518mjnstblnaoDqrmoc Dymond Other [employer] indic[employer] Other Start: 75-99-6581Rcxiuz outpatient visit 15 minutes Luisa MckeonHONORHEALTH [facility] Urgent Care ClydeStart: 52-59-7780Xaviytzmi encounterMarlobito JonesHONORHEALTH [facility] Urgent Care ClydeStart: 11-14-2023 End: 61-22-0094Gylgssb encounter procedureFiradiss Physician Group-[facility] Urgent Care Billy Work Phone: Start: 11-04-2023 End: 60-42-2623jvocawnmyqWacbrc Braun Other [employer] Other Start: 65-80-9781Oegyps outpatient visit 15 minutes Yelitza LópezNovant Health [facility] ClinicStart: 10-14-2023 End: 41-40-3716vjmjnsfnupIfysgs Braun Other [employer] Other Start: 80-55-8976Wtnzuzpyc encounterMarlobito JonesTrumbull Memorial Hospital ClinicStart: 10-09-2023 End: 49-13-9015stivhasomuCooonl Grob Other [employer] Other Start: 14-01-4929Itesnh outpatient visit 15 minutes Hilary LeblancT[facility] Hospital Ur[facility] Care ClydeStart: 07-29-2023 End: 75-91-2472pwwjnztetdIuiacd Jones Other [employer] Other Start: 28-75-1305Waymkvytn for general adult medical examination without abnormal findingsMarcijared [facility] Medical ClinicStart: 20-21-2430Zeuacy outpatient visit 15 minutesMarlobito [facility] Start: 07-16-2023 End: 84-72-9132ybdfwdemudSeilpk Jones Other [employer] Other Start: 17-67-3792Yehhzfyof encounterMarcia Deana [facility] ClinicStart: 05-20-2023 End: 67-87-3780pydjkfthuzAukygx Jones Other [employer] Other Start: 61-13-0324Qfzhnefld encounterMarcia Deana [facility] ClinicStart: 03-10-2023 End: 02-78-4891lbjlbpwyiaDfynwb Jones Other [employer] Other Start: 14-43-1368Vxkfxu outpatient visit 15 minutes Yelitza [facility] ClinicStart: 12-16-2022 End: 59-61-8612lwcipofknzPgkvnr Jones Other [employer] Other Start: 78-95-3967Uxmwhvclp encounterMarcijared [facility] Medical ClinicStart: 12-12-2022(Televisit) TelevisitMarcijared [facility] Medical ClinicStart: 12-12-2022 End: 18-68-5708fivhpplesyVkirzd Jones Other [employer] Other Start: 09-12-2022 End: 04-10-7051oevpgboonfZN Yelitza Jones Work Phone: [facility] Work Phone: Start: 09-12-2022 End: 31-54-4070Botnjxo encounter procedureMD Torre Karen Work Phone: [facility]-MRI Main CampusStart: 65-83-6828Zfncb health examinationYelitza Jones Other [place] [employer] Other Start: 14-80-0746Zuluwomsr for general adult medical examination without abnormal findingsOhio State Harding Hospitaltart: 08-14-2021 End: 70-21-8193ayvvlahwyxEGTVQD FAWWADFacility:T4Olabt: 08-14-2021 End: 09-49-0814Dioxsokrh for general adult medical examination without abnormal findingsBEAR VALLEY COMMUNITY HOSPITALDFacility:E3Nrdol: 72-84-2794lrojoymqpmEY MARCIA E BRAUN Facility:S3Dbjop: 07-05-2021 End: 55-37-0724rmpjumqkgvNZ YELITZA JONESFacility:K3Zrams: 06-12-2021 End: 33-88-8511kefchpoacxFP YELITZA JONESFacility:V4Jpjlq: 05-22-2021 End: 49-51-7722hpkfimgbqlWP UMBERTO JUNGFacility:Q7Cwwnb: 05-18-2021 End: 22-91-5867roraubtpsnQU DOCTOR MISCFacility:I2Jeizz: 05-07-2021 End: 99-08-5624ykxzsgrxqsML YELITZA JONESFacility:B2Hydpw: 03-23-2021 End: 54-56-1682pizcrfjmfxLU YELITZA JONESFacility:E5Koqoj: 02-16-2021 End: 47-84-6374iltulvttmoZS YELITZA JONESFacility:O7Btqck: 12-23-2020 End: 75-83-7169waanhupkqpVH DOCTOR MISCFacility:K7Owpjc: 50-72-8672Rxzdxiomn for antibody response examinationDR YELITZA JONESSelect Medical OhioHealth Rehabilitation Hospitaltart: 11-13-2020 End: 64-69-3455pzrcsadebmJH YELITZA Ma KARENFacility:N2Pziyd: 11-13-2020 End: 45-19-8974Ixdxlfjqm for antibody response examinationDR TORRE Anil KAREN Facility:Q7Lwriq: 10-21-2020 End: 84-27-7995wvoshykwoxPO YELITZA Ma KARENFacility:P3Edsyu: 09-11-2020 End: 08-01-1905rchpxeelyfXFUFWKGY CALLAHANFacility:V6Iyjbm: 10-28-2017 End: 03-66-7290XymwmdfijwCAXMSB [facility] Procedures DateProcedureProcedure DetailPerforming ClinicianStart: 81-55-0908Gvqtmatfvbz nuclear antigen antibody any methodSammi Estrada DATA CONTROL CLERK Work Phone: Start: 38-86-2476Ffllo of free thyroxineSammi Estrada DATA CONTROL CLERK Work Phone: Start: 02-92-5639BVJ VITAMIN D 25 OHBrechase Jean Baptiste MD Work Phone: Start: 38-79-8384Qryhe Strep (POC)Start: 10-30-2017 DISCHARGE PATIENTMARCIA [facility]: 63-66-7615QVEZVLF BLOOD #1MARCIA [facility]art: 06-65-0796SQPSSKEN OXYGEN THERAPY PROTOCOLSOUTHEAST ARIZONA MEDICAL CENTERCIA [facility]: 55-82-6704KQBAJE AND OUTPUTMARCIA [facility]: 07-19-3993CUBHVVV BLOOD #1MARCIA [facility]: 79-96-8743BAOG GENERALMARCIA [facility]: 32-83-5225SNUWLVOB OXYGEN THERAPY PROTOCOLSOUTHEAST ARIZONA MEDICAL CENTERCIA [facility]: 96-78-3447LUQJP METABOLIC PANELMARCIA [facility]: 88-67-9718IDK WITH AUTO DIFFERENTIALMARCIA [facility]: 90-32-8389FLNTKZ AND OUTPUTMARCIA [facility] Hospitalart: 31-14-3524Laewciegwzn urinalysisSOUTHEAST ARIZONA MEDICAL CENTERCIA [facility]: 65-49-9328YJ W/REFLEX CULTURESOUTHEAST ARIZONA MEDICAL CENTERCIA [facility]: 56-18-3990NCAJE CULTURE CLEAN CATCHNovant Health Medical Park Hospital: 78-22-6959CNBOQPHNU MONITORINGYELITZA [facility]: 75-60-1919MTIELEL DIET TOLERATED (NURSING COMMUNICATION)YELITZA KARENWaverly: 35-61-3634MCDG CODEYELITZA [facility]: 38-25-1178WWUJZSOY OXYGEN THERAPY PROTOCOL YELITZA KARENWaverly: 14-60-5854KHGWPY AND OUTPUTYELITZA [facility]: 10-28-2017 REASON FOR NO MECHANICAL VTE PROPHYLAXISYELITZA [facility]: 76-43-0508QWDWW SIGNS YELITZA [facility]: 99-66-9579CBCMZNR STATUS (FROM ED OR OR/PROCEDURAL)YELITZA KARENWaverly: 00-71-7042NFUDHOID PATIENTYELITZA [facility]: 96-65-3164AR CONSULT TO OB GYNSOUTHEAST ARIZONA MEDICAL CENTERLOBITO [facility]: 94-18-7112UNQAF METABOLIC PANELYELITZA [facility]: 39-96-5887BAL WITH AUTO DIFFERENTIALSOUTHEAST ARIZONA MEDICAL CENTERLOBITO [facility]: 00-60-7187POOLWT PERIPHERAL IVYELITZA [facility]: 58-00-7993Bntxzdj examination of Macy Jones Other Hyperlipidemia screeningYelitza Jones Other Plan of Treatment DateCare ActivityDetailAuthorStart: 10-13-2025 End: 70-74-4567Topiqaz encounter nwoxevdih75/04/2025 10:45 AM EST Procedure Visit [facility] [address] [facility] [address] [place] [address] Sammi Estrada, DATA CONTROL CLERK [address] [facility] [address] [id number] [facility] NeurologyStart: 07-15-2025 End: 46-39-4075Egyqssk encounter procedureNOMS Stacie NeurologyComment on above:ArrivedStart: 24-45-1890Ydxerowlp vaccinationInfluenza Vaccine (#1)NOMPaul HealthcareStart: 06-23-2025 End: 18-32-4765Hritrwr encounter procedureNOMS SWS NEURStart: 03-24-2025 End: 19-86-6707Wdjvohv encounter procedureNOMS SWS NEURComment on above:Arrived Start: 03-24-2025 End: 45-80-2197ILE ANTIBODY ([facility])SSA ANTIBODY ([facility]) Lab Routine Cognitive decline Other specified hypothyroidism Autoimmune disease (CMS/HCC) Expected: 03/24/2025 (Approximate), Expires: 03/24/2026[facility] Work Phone: Comment on above:Expected: 03/24/2025 (Approximate), Expires: 03/24/2026Start: 03-24-2025 End: 33-38-7104TDK ANTIBODY ([facility])SSB ANTIBODY ([facility]) Lab Routine Cognitive decline Other specified hypothyroidism Autoimmune disease (CMS/HCC) Expected: 03/24/2025 (Approximate), Expires: 03/24/2026NOMS HealthcareComment on above:Expected: 03/24/2025 (Approximate), Expires: 03/24/2026Start: 12-23-2024 End: 50-43-5393Nrszgvi encounter ilcvbogit54/13/2025 1:00 PM EST Office Visit [facility] NEUR [address] [place] [address] [address] Efrain Jean Baptiste MD [address] [facility] [address] [address] [facility] NEURStart: 12-10-2024 End: 27-46-9508Wqodlpdjgq factor [Units/volume] in Serum or PlasmaRheumatoid factor Lab Routine Autoimmune disease (CMS/HCC) Expected: 12/10/2024 (Approximate), Expires: 12/09/2025NOND HealthcareComment on above:Expected: 12/10/2024 (Approximate), Expires: 12/09/2025Start: 12-09-2024 End: 54-69-9995Kvlcotp encounter procedureNOMS [facility] NEURComment on above:Arrived Start: 12-09-2024 End: 12-09-2025 reactive protein [Mass/volume] in Serum or PlasmaC-reactive protein Lab Routine Autoimmune disease (CMS/HCC) Expected: 12/09/2024 (Approximate), Expires: 12/09/2025[facility] HealthcareComment on above:Expected: 12/09/2024 (Approximate), Expires: 12/09/2025Start: 12-09-2024 End: 22-68-5785FKM W Auto Differential panel - BloodCBC and differential Lab Routine Autoimmune disease ([facility]) Expected: 12/09/2024 (Approximate), Ex douglas: 12/09/2025[facility] HealthcareComment on above:Expected: 12/09/2024 (Approximate), Expires: 12/09/2025Start: 12-09-2024 End: 29-56-5997Qfbhfohjmzb sedimentation rateSedimentation rate, automated Lab Routine Autoimmune disease ([facility]) Expected: 12/09/2024 (Approximate), Expires: 12/09/2025[facility] HealthcareComment on above:Expected: 12/09/2024 (Approximate), Expires: 12/09/2025Start: 12-09-2024 End: 63-97-2610Alhzcsi Ab [Titer] in Serum by ImmunofluorescenceANA Lab Routine Autoimmune disease ([facility]) Expected: 12/09/2024 (Approximate), Expires: 12/09/2025[facility] Healthcare Work Phone: Comment on above:Expected: 12/09/2024 (Approximate), Expires: 12/09/2025Start: 12-09-2024 End: 29-82-2484VJW ANTIBODY ([facility])SSA ANTIBODY ([facility]) Lab Routine Autoimmune disease ([facility]) Expected: 12/09/2024 (Approximate), Expires: 12/09/2025[facility] HealthcareComment on above:Expected: 12/09/2024 (Approximate), Expires: 12/09/2025Start: 12-09-2024 End: 79-19-7416EBX ANTIBODY ([facility])SSB ANTIBODY ([facility]) Lab Routine Autoimmune disease ([facility]) Expected: 12/09/2024 (Approximate), Expires: 12/09/2025[facility] HealthcareComment on above:Expected: 12/09/2024 (Approximate), Expires: 12/09/2025Start: 10-22-2024 End: 31-39-9070Dmgubqe encounter ibwlknjqi15/13/2024 10:15 AM EST Procedure Visit [facility] [address] [facility] [address] [place] [address] Sammi Estrada, DATA CONTROL CLERK [address] [facility] [address] [place] [address] [facility] NEURStart: 09-16-2024 End: 25-87-376947876396-ztnprqyrpqebmg D3 [Mass/volume] in Serum or PlasmaVitamin D 25 hydroxy Total Lab Routine Demyelinating disease of central nervous system (HCC) ([facility]/HCC) Expected: 09/16/2024 (Approximate), Expires: 09/16/2025[facility] HealthcareComment on above:Expected: 09/16/2024 (Approximate), Expires: 09/16/2025Start: 09-16-2024 End: 50-94-4666Ttpkorb-Dela Cruz virus VCA, IgGEpstein-Dela Cruz virus VCA, IgG Lab Routine Demyelinating disease of central nervous system (HCC) (CMS/HCC) Expected: 09/16/2024 (Approximate), Expires: 09/16/2025[facility] HealthcareComment on above:Expected: 09/16/2024 (Approximate), Expires: 09/16/2025Start: 09-16-2024 End: 31-09-0605Skxkxac-Dela Cruz virus VCA, IgMEpstein-Dela Cruz virus VCA, IgM Lab Routine Demyelinating disease of central nervous system (HCC) (CMS/HCC) Expected: 09/16/2024 (Approximate), Expires: 09/16/2025[facility] HealthcareComment on above:Expected: 09/16/2024 (Approximate), Expires: 09/16/2025Start: 09-16-2024 End: 33-67-1664SR Brain WO and W contrast IVMR brain w and wo contrast routine Imaging Routine Chiari malformation type I ([facility]/HCC) Expected: 09/16/2024 (Approximate), Expires: 09/16/2025[facility] Work Phone: Comment on above:Expected: 09/16/2024 (Approximate), Expires: 09/16/2025Start: 09-16-2024 End: 72-78-1197Jwgmdax Ab [Titer] in Serum by ImmunofluorescenceANA Lab Routine Demyelinating disease of central nervous system (HCC) (CMS/HCC) Expected: 09/16/2024 (Approximate), Expires: 09/16/2025NOND HealthcareComment on above: Expected: 09/16/2024 (Approximate), Expires: 09/16/2025Start: 09-16-2024 End: 36-01-6700Qulhuyj encounter ksamvtepw68/07/2024 10:20 AM EST Office Visit [facility] [address] [facility] [address] [place] [address] Efrain Jean Baptiste MD [address] [place] [address], [place] [id number] [facility]Start: 04-11-7829Xucsvbabv vaccinationInfluenza Vaccine (#1)NOM HealthcareComment on above:Postponed from 07/11/2023 (Patient Refused)Start: 07-15-2024 End: 13-68-5026Meueklk encounter /05/2024 1:00 PM EDT Procedure Visit [facility] [address] [facility] [address] [place] [phone] Sammi Estrada, DATA CONTROL CLERK [address] [place] [address], [place] [address] [facility]rivedNOST. [facility] NEURComment on above: ArrivedStart: 99-40-9569Jehqeowrx vaccinationInfluenza Vaccine (#1)NOM HealthcareStart: 04-01-2024 End: 95-23-8831Girwugl encounter tkogcqwql72/23/2024 1:00 PM EDT Procedure Visit [facility] [address] [facility] [address] [place] [address] Sammi Estrada, DATA CONTROL CLERK [address] [place] [address], [place] [address] [facility] NEURStart: 01-01-2024 End: 58-20-7110Fumghbz encounter hcxpzpiys93/22/2024 10:30 AM EST Office Visit [facility] [address] [place] [address] Efrain Jean Baptiste MD [address] [facility] [address] [id number] [facility] NEURStart: 12-29-2023 End: 45-68-7967Ydsgtzic Gpajvyi7912/29/2023 1:00 PM EST Clinical Support [facility] [place] [address] [place] [phone] [place] Start: 27-44-3281Ftopclusn for malignant neoplasm of breastMammogramNOMS HealthcareStart: 00-35-2323Gsvzhlqhq vaccinationInfluenza Vaccine (#1)[facility] HealthcareStart: 53-60-9680MC Unspecified body regionHolzer Hospitaltart: 68-40-8051KCH of headMR head/brain wo/w [facility]tart: 14-72-2928Erqjfilec for malignant neoplasm of cervixNOMS HealthcareStart: 52-46-5457Dptvzgfuu for malignant neoplasm of cervixPap Smear [facility] Immunizations Immunization DateImmunizationNotesCare BglleqwuPdcwifxd25-48-9912jngrruucm virus vaccine, unspecified formulationJacqueline Graziani DATA CONTROL CLERK Work Phone: [facility] CenterPksxuoxaca39-27-5896hgihpyryc virus vaccine, split virus (incl. purified surface antigen)Yelitza Jones Other [place] [employer] Other 826349-06-6006fhlkmrxem virus vaccine, unspecified formulationDiley Ridge Medical Center09-30-2020influenza, seasonal, injectable, preservative freeJacqueline Graziani DATA CONTROL CLERK Work Phone: [facility] CenterMarouijyos61-90-4215btozpvodx virus vaccine, unspecified formulationJacqueline Graziani DATA CONTROL CLERK Work Phone: [facility] CenterKfjcqdpmno52-32-4145csllkirlyrtj polysaccharide vaccine, 23 valentJacqueline Graziani DATA CONTROL CLERK Work Phone: [facility] CenterApsmldccqr76-51-6851kyynpeiut B vaccine, adult dosageJacqueline Graziani DATA CONTROL CLERK Work Phone: [facility] CenterRavxlzomdq64-39-8422uwevexkgf B vaccine, adult dosageJacqueline Graziani DATA CONTROL CLERK Work Phone: [facility] CenterQhlphzwehs18-77-3542ivfmduyev B vaccine, adult dosageJacqueline Graziani DATA CONTROL CLERK Work Phone: [facility] CenterCvjceglauk71-40-1011rlvttxa toxoid, reduced diphtheria toxoid, and acellular pertussis vaccine, adsorbedJacqueline Graziani DATA CONTROL CLERK Work Phone: [facility] Payers DatePayer CategoryPayerPolicy [id number] Health Insurance [id number]c 1.2.840.334287.1.13.693.2.7.3.206220.17943-36-8975Pgpy [facility] [id number] 2.0.4.410078.[id number] [id number] 2.840.1.446668.3.57[id number] 2.840.1.063308.3.57[id number] 2.840.1.984682.3.579.[id number] 2.0.1.015360.3.579.2.73017-12-1574Yzylqhw3878141 2.840.1.145869.3.579.2.71891-65-2925Izcsojy9039880 2..1.848518.3.579.2.65375-29-1432Junznnf6863843 2..1.435720.3.579.2.25338-92-3427Bhipalf1676211 2..1.458562.3.57[id number] 2..1.131003.3.579.2.83639-40-1399Rrpkwbp3833606 2..1.313072.3.579.2.60587-32-1802Yeflqdh4190564 2..1.842644.3.579.2.73927-95-5684Chdhwxz8748318 2..1.347712.3.579.2.78703-76-9215Ozjezky2956642 2..1.159679.3.579.2.63462-30-9125Ahjseft33080185 2..1.545653.3.579.2.205379-22-0749Lwiywep4214663 2..1.176416.3.579.2.179264-33-0715Xyyjdua1262707 2..1.600639.3.579.2.895594-33-1189Altqsgb3372236 2..1.245958.3.579.2.830376-13-7557Cajrdyc9205414 2.16.840.1.551991.3.579.2.328636-84-3155Urqfxjg Health [id number] [id number] 2.16.840.1.098135.3.579.2.593UnknownOhio Health [id number] nb264279-755v-1176-29tr-[id number] 2.16.840.1.450341.19 [id number] 2.16.840.1.50[id number] 2.16.840.1.0817[id number] 2.16.840.1.561725.3.579.2.531 Social History DateTypeDetailFacilityTobacco smoking status NHISUnknown if ever smokedFirelands Regional [facility] Work Phone: Start: 10-01-8968Izn Assigned At [facility]tart: 10-30-2023 End: 39-33-3517Yaq Assigned At [facility] indico Other Start: 06-09-2023 End: 76-03-6708Werebhz smoking status NHISNever smoked tobaccoNOMS Healthcare Start: 39-62-5123Dhprojz use and exposureSmokeless tobacco non-userNOMS HealthcareStart: 10-30-2023 End: 87-92-3362Auyvefx intakeCurrent drinker of alcohol (finding)[facility] Start: 10-30-2023 End: 85-04-9213Mkcfxon intakeNOMS HealthcareStart: 16-83-0823Jvmndfh Comment Caffeine intake: more than 4 cups per day coffee, sodaNOMS HealthcareStart: 03-70-0699Xpzmrj identityIdentifies as female gender (finding)[facility] Start: 05-12-2024 End: 32-74-2704Exxczfotj beverage intakeEx-drinker (finding)[facility] Start: 44-82-4340QshVqzjdk (finding)[facility] Hospitaltart: 42-06-7881DgbNpwoakWKBNAllendale County Hospital Clinical Notes 12-12-2022 to 09-05-2025 Note Date & [id number] Telephone encounter Note* Telephone Encounter - Sammi Estrada NP - 09/05/2025 10:23 AM EDT [facility] reviewed. [facility] [id number] Miscellaneous Notes* Telephone Encounter - Sammi Estrada NP - 09/05/2025 10:23 AM EDT [facility] reviewed. documented in this encounterNorthwest Medical [id number] History of Present illness Narrative* Sammi Estrada [...] with 70% isopropanol. Specialty pharmacy Lot # [id number] Dilution 200 units diluted into 4mL = 5 units per 0.1mL Procedure Procerus 5 units Lastex Operator, L 5 units Lastex Operator, R 5 units Frontalis, L 10 units [...] without status migrainosus - G43.719 Procedure Codes 38060 Chemodenervation of muscles innervated by facial, trigeminal, [...] administration of Aimovig,Ajovy, or Emgality by a biomedical engineering director. She agreed to this plan. A prescription [...] care. This clinical note was created utilizing [employer] documentation system. All information has beenthoroughly reviewed, corrected as necessary, and authenticated by the provider to ensure accuracy and completeness. On occasion, [employer] documentation system erroneously drops words or replaces aspoken word with a similar sounding word. Please notify with any questions or concerns regarding this clinical note. documented in this [facility]07-25-2025 Telephone encounter Note* Telephone Encounter - Sammi Estrada NP - 06/03/2025 8:25 AM EDT Resent Adderall as patient leaving for [employer]. [facility] [id number] Miscellaneous Notes* Telephone Encounter - Sammi Estrada NP - 06/03/2025 8:25 AM EDT Resent Adderall as patient leaving for [employer]. documented in this [facility]07-24-2025 Telephone encounter Note* Telephone Encounter - Sammi Estrada NP - 06/02/2025 12:18 PM EDT [facility] reviewed. [id number] Miscellaneous Notes* Telephone Encounter - Sammi Estrada NP - 06/02/2025 12:18 PM EDT OARRS reviewed. documented in this [facility]06-29-2025 Telephone encounter Note* Telephone Encounter - Sammi Estrada NP - 05/08/2025 12:27 PM EDT OARRS reviewed. [facility] CenterIrfkhgjzeq09-16-1748 Miscellaneous Notes* Telephone Encounter - Sammi Estrada NP - 05/08/2025 12:27 PM EDT OARRS reviewed. documented in this [facility]05-29-2025 Telephone encounter Note* Telephone Encounter - Sammi Estrada NP - 04/07/2025 9:16 AM EDT OARRS reviewed. [facility] CenterRgdpbigxkx30-85-1354 Miscellaneous Notes* Telephone Encounter - Sammi Estrada NP - 04/07/2025 9:16 AM EDT OARRS reviewed. documented in this [facility]05-15-2025 History of Present illness Narrative* Sammi [...] TRANSVERSE 12/16/2016 & tube removal HYSTERECTOMY 10/2017 [place] [facility] [place] Procedure:Clomid 50 mg i daily;Disease:Infertility [...] Depression: Not at risk (02/11/2021) Received from [facility] PHQ-2 PHQ-2 score: 1 REVIEW OF SYMPTOMS: [...] reflexes: Sunday's absent. Ankle clonus absent. Coordination Envarp-ef-nori, rapid alternating movements and lkst-ye-csxa normal bilaterally without dysmetria. Gait Normal casual, [...] with 70% isopropanol. Specialty pharmacy Lot # [id number] Dilution 200 units diluted into 4mL = 5 units per 0.1mL Procedure Procerus 5 units Lastex Operator, L 5 units Lastex Operator, R 5 units Frontalis, L 10 units [...] without status migrainosus - G43.719 Procedure Codes 75531 Chemodenervation of muscles innervated by facial, trigeminal, [...] anticonvulsants, OTCs, NSAIDs, triptans. documented in this encounterNorthwest Medical CenterHidayukfdh88-87-6830 History of Present illness Narrative* Sammi Estrada, DATA CONTROL CLERK - 12/09/2024 3:15 PM EST Images from [...] TRANSVERSE 12/16/2016 & tube removal HYSTERECTOMY 10/2017 [place] Procedure:Clomid 50 mg i daily;Disease:Infertility [...] Depression: Not at risk (02/11/2021) Received from [facility], [facility] PHQ-2 PHQ-2 score: 1 REVIEW OF SYMPTOMS: [...] reflexes: Sunday's absent. Ankle clonus absent. Coordination Aifohy-js-ddrz, rapid alternating movements and gpqm-dq-ppjf normal bilaterally without dysmetria. Gait Normal casual, [...] with 70% isopropanol. Specialty pharmacy Lot # [id number] Dilution 200 units diluted into 4mL = 5 units per 0.1mL Procedure Pjklgfui8fzvxc Lastex Operator, U3uniql Lastex Operator, I8kywwu Frontalis, R82yqviw(2 sites) Frontalis, X37fyexn(2 sites) Temporalis, L 20 units (4 sites) Temporalis, R.20units(4 sites) Occipitalis, L57bsxft(3 sites) Occipitalis, E94thvbt(3 sites) Paraspinalis cervicis, N85hotqu(2 sites) Paraspinalis cervicis, N98rvtfc(2 sites) Trapezius, P90xhpzb(3 sites) Trapezius, A25cgntw(3 sites) Mocxh69vhfyq(9 sites, see below) TOTAL UNITS MEMOEMYE424 WASTED0 The remaining 45 units were injected [...] without status migrainosus - G43.719 Procedure Codes 62459 Chemodenervation of neck muscles, bilateral: Modifiers: 50 49702 Destroy Nerve, Face Muscle, Modifiers: 50 , [...] patient, and coordinating care. documented in this encounterNorthwest Medical CenterFljogcodlj59-40-1497 History of Present illness Narrative* Efrain Jean [...] her yearly MRI,. To be done [place] [facility] [place]. 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 Post-nasal drainage 2012 Proteinuria since 2011 Varicella zoster Past Surgical History: Procedure Laterality Date SECTION, LOW TRANSVERSE 2013 SECTION, LOW TRANSVERSE 12/16/2016 & tube removal HYSTERECTOMY 10/2017 [place] Procedure:Clomid 50 mg i daily;Disease:Infertility [...] Depression: Not at risk (02/11/2021) Received from [facility], [facility] PHQ-2 PHQ-2 score: 1 REVIEW OF SYMPTOMS: [...] in all four extremities, including at least financial institution president, finger abductors, biceps, triceps, deltoid, toe flexors [...] MR brain w and wo contrast routine; [facility] Start topiramate (Topamax) 25 MG tablet; Take [...] Follow up 3 months. documented in this [facility]09-17-2024 Telephone encounter Note* Telephone Encounter - Sammi Estrada NP - 07/27/2024 3:27 PM EDT Sent 30 mg IR [facility] CenterPkgvllcbee78-55-8175 Miscellaneous Notes* Telephone Encounter - Sammi Estrada NP - 07/27/2024 3:27 PM EDT Sent 30 mg IR * Telephone Encounter - Sammi Estrada NP - 07/27/2024 3:05 PM EDT Patient calls and her medication Adderall is on delay the 30 mg XR. If she does not take this medication she is significantly exhausted, fatigue is severely debilitating. documented in this [facility]09-17-2024 Telephone encounter Note* Telephone Encounter - Sammi Estrada NP - 07/27/2024 3:05 PM EDT Patient calls and her medication Adderall is on delay the 30 mg XR. If she does not take this medication she is significantly exhausted, fatigue is severely debilitating. [facility] CenterZngjcxkrwa84-64-2589 Telephone encounter Note* Telephone Encounter - Sammi Estrada NP - 07/26/2024 8:26 AM EDT OARRS reviewed. [facility] CenterYbywazryve12-11-7016 Miscellaneous Notes* Telephone Encounter - Sammi Estrada NP - 07/26/2024 8:26 AM EDT OARRS reviewed. 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 Post-nasal drainage 2012 Proteinuria since 2011 Varicella zoster Past Surgical History: Procedure Laterality Date SECTION, LOW TRANSVERSE 2012 SECTION, LOW TRANSVERSE 12/16/2016 & tube removal HYSTERECTOMY 10/2017 [place] Procedure:Clomid 50 mg i daily;Disease:Infertility [...] Depression: Not at risk (02/11/2021) Received from [facility], [facility] PHQ-2 PHQ-2 score: 1 REVIEW OF SYMPTOMS: [...] reflexes: Sunday's absent. Ankle clonus absent. Coordination Rljhoo-bo-embb, rapid alternating movements and ulgb-gt-lrgx normal bilaterally without dysmetria. Gait Normal casual, [...] with 70% isopropanol. Specialty pharmacy Lot # [id number] Dilution 200 units diluted into 4mL = 5 units per 0.1mL Procedure Procerus 5 units Lastex Operator, L 5 units Lastex Operator, R 5 units Frontalis, L 10 units [...] without status migrainosus - G43.719 Procedure Codes 39722 Chemodenervation of neck muscles, bilateral: Modifiers: 50 12022 Destroy Nerve, Face Muscle, Modifiers: 50 , 51 J0585 Botulinum toxin a per unit, Units: 200.00 Follow Up 2.5 months appointment; 3 months BTX ASSESSMENT AND PLAN: Diagnoses and all orders for this visit: Intractable chronic migraine without aura and without status migrainosus (CMS/HCC) - Ambulatory Referral for Botox; Future Autoimmune disease ([facility]) - Naltrexone HCl powder; Take 1 [...] 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 I will continue botox treatment for [...] patient, and coordinating care. documented in this encounterNorthwest Medical CenterQrwfhrovyk66-86-9103 History of Present illness Narrative* Sammi Estrada NP - 12/25/2023 1:30 PM EST Subjective Celi Madird is a 38 y.o. female. HPI Patient [...] work. 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 Post-nasal drainage 2012 Proteinuria since 2011 Varicella zoster Past Surgical History: Procedure Laterality Date SECTION, LOW TRANSVERSE 2012 SECTION, LOW TRANSVERSE 12/16/2016 & tube removal HYSTERECTOMY 10/2017 [place] Procedure:Clomid 50 mg i daily;Disease:Infertility [...] with 70% isopropanol. Specialty pharmacy Lot # [id number] Dilution 200 units diluted into 4mL = 5 units per 0.1mL Procedure Procerus 5 units Lastex Operator, L 5 units Lastex Operator, R 5 units Frontalis, L 10 units [...] without status migrainosus - G43.719 Procedure Codes 66678 Chemodenervation Of Muscle Neck, Modifiers: 50 46534 Destroy Nerve, Face Muscle, Modifiers: 50 , 51 J0585 Botulinum toxin a per unit, Units: 200.00 A4209 SYRINGE W/NEEDLE STERILE 5 CC/GT EA A4206 1 CC sterile syringe&needle, Units: 4.00 A4216 Sterile water/saline, 10 ml Follow Up 2.5 months appointment; 3 months BTX documented in this [facility]01-05-2024 Evaluation note* Encounter Date Diagnosis Assessment Notes Treatment Notes Treatment Clinical Notes Nov, Chest congestion (ICD-10 - R09.8 9) Nov,Influenza B (ICD-10 - J10.1)Influenza: adult home care material was printed Drink plenty fluids, get plenty of rest. Take Tylenol or Motrin for aches pains or fevers. Follow-up with your family physician if no improvement in 2 to 3 days [facility] Other 12-26-2023 Evaluation note* Encounter Date Diagnosis Assessment Notes Treatment Notes Treatment Clinical Notes Oct, Bronchitis (ICD-10 - J40) Take antibiotic as directed. If develop wheezing, chest tightness, itching, bad cough, blue skin color, seizures, swelling of face, lips, tongue, or throat report to ED. [facility] Other 11-30-2023 Evaluation note* Encounter Date Diagnosis [...] Sep,cute right otitis media (ICD-10 - H66.91) [facility] Other 09-19-2023 Evaluation note* Encounter Date Diagnosis Assessment Notes Treatment Notes Treatment Clinical Notes Jul, Wellness examination (ICD-10 - Z 00.00) Not a wellness exam, but requests wellness labs done for this year. Jul,isorder of right eustachian tube (ICD-10 - H69.91)Advised finishing steroids. Trial of lower dose sudafed with flonase, which she has not started. NoOM seen. Pt understands [facility] Other 09-06-2023 Evaluation note* Encounter Date Diagnosis Assessment Notes Treatment Notes Treatment Clinical Notes Jul, Pharyngitis, unspecified etiolog y (ICD-10 - J02.9) [facility] Other 05-01-2023 Evaluation note* Encounter Date Diagnosis [...] she easily has this problem on antibiotics. [facility] Other 02-06-2023 Evaluation note* Encounter Date Diagnosis Assessment Notes Treatment Notes Treatment Clinical Notes Dec, Acute non-recurrent maxillary si nusitis (ICD-10 - J01.00) [facility] Other 02-02-2023 Evaluation note* Encounter Date Diagnosis Assessment Notes Treatment Notes Treatment Clinical Notes Dec, Acute non-recurrent maxillary si nusitis (ICD-10 - J01.00) Testing for influenza as her negative COVID tests were not conclusive at home. Patient prefers to wait. Strongly suspect she has strep throat. Updated medication and allergy list in chart. 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 Attention deficit disorder without mention of hyperactivity documented in this encounter [facility]* Diagnosis Onset Date Resolution Status Right otitis media noneactiveSore throatnoneactive [facility] Work Phone: Evaluation note* Diagnosis Intractable [...] CKD (chronic kidney disease) acuteNovember 2023 10:24am [facility] Work Phone: Evaluation note* Diagnosis ADD [...] disease)Medical HistoryanxietyMedical History migraine headacheSurgical HistoryC section, p5Dwzycrdh Historybilateral rlttyrwvpcupf6310Yriljalh Historykidney tpyrku68/2017Surgical History hysterectomyHospitalization Historychild birthHospitalization Historylow k+ [id number] [facility] Other History general Narrative - ReportedNortValley Forge [facility] Other Summary Purpose Family History Relationship Condition [...] without status migrainosus (CMS/HCC) Sammi Estrada NP [address] [place] [address] Sammi Estrada NP [address] [place] [address] Referral IDStatusReasonStart DateExpiration DateVisits RequestedVisits [id number] Review Additional Source Comments INFORMATION SOURCE (unrecogn ized section and content) DATE CREATED AUTHOR 05/05/2018 [facility] DATE CREATED AUTHOR AUTHOR'S ORGANIZ ATION 02/13/2021 [facility] DATE CREATED AUTHOR AUTHOR'S ORGANIZ ATION 08/19/2021 [facility] DATE CREATED AUTHOR AUTHOR'S ORGANIZ ATION 12/03/2021 [facility] DATE CREATED AUTHOR AUTHOR'S ORGANIZ ATION 10/12/2024 [facility] DATE CREATED AUTHOR AUTHOR'S ORGANIZ ATION 07/17/2025 [facility] EPIC Care Teams (unrecognized sec tion and content) Team Status: Inactive Member Role Status Dates Yelitza Jones MD Primary Care Provider Active Sammi Estrada APRN DATA CONTROL CLERK-CAttending ProviderActive Team Status: Active Member Role Status [...] Date Yelitza Jones MD [address] [facility] [place] [id number] PCP - GeneralFamily Tegzecvf84/7/24Team MemberRelationshipSpecialtyStart DateEnd Date Yelitza Jones MD [address] [place] [address] PCP - Generalmi Hqpntiem32/7/24 Team Status: Inactive Member Role Status Dates Yelitza Jones MD Primary Care Provide r, Attending Provider Active Start: September 17, 2024 End: September 17, 2024Team MemberRelationshipSpecialtyStart DateEnd Date Yelitza Jones MD [address] [place] [address] [facility] - [facility]Well[facility]09/16/24Team MemberRelationshipSpecialtyStart DateEnd Date Yelitza Jones MD [address] [place] [address] [facility] - [facility] Fswdmxzj13/7/24Team MemberRelationshipSpecialtyStart DateEnd Date Yelitza Jones MD [address] [place] [address] PCP - GeneralFami Suhohiih41/7/24Team MemberRelationshipSpecialtyStart DateEnd Date Yelitza Jones MD [address] [place] [address] PCP - [facility] Ofcwgada25/7/24Team MemberRelationshipSpecialtyStart DateEnd Date Yelitza Jones MD [address] [place] [address] PCP - [facility] Cummlozz67/7/24Team MemberRelationshipSpecialtyStart DateEnd Date Yelitza Jones MD PCP - [facility] Clqapvtc58/7/24Team MemberRelationshipSpecialtyStart DateEnd Date Yelitza Jones MD PCP - [facility] Aojrnpvm25/7/24Team MemberRelationshipSpecialtyStart DateEnd Date Yelitza Jones MD PCP - Generalmily Ohkhldby70/7/24Team MemberRelationshipSpecialtyStart DateEnd Date Yelitza Jones MD PCP - [facility] Oilbqsfd99/7/24Team MemberRelationshipSpecialtyStart DateEnd Date Yelitza Jones MD PCP - [facility] Addrbbaz17/7/24Team MemberRelationshipSpecialtyStart DateEnd Date Yelitza Jones MD PCP - [facility] Biifcvsi25/7/24Team MemberRelationshipSpecialtyStart DateEnd Date Yelitza Jones MD PCP - [facility] Nlpwkalh44/7/24Team MemberRelationshipSpecialtyStart DateEnd Date [facility] Zgvnsuiw54/7/24Team MemberRelationshipSpecialtyStart DateEnd Date Yelitza Jones MD PCP - Generalmily Fyfuprhx18/7/24Team MemberRelationshipSpecialtyStart DateEnd Date Yelitza Jones MD PCP - [facility] Wwrfzzcp64/7/24 Goals (unrecognized section and content) Goals may be documented in a n alternate sectionNo InformationNo InformationNo InformationNo InformationNo InformationNo InformationNo InformationNo InformationNo InformationNo InformationGoals may be documented in an alternate sectionGoals may be documented in an alternate sectionGoals may be documented in an alternate section REASON FOR VISIT (unrecogniz ed section and content) ReasonOnset DateCommentsMed Aylmck024ReasonOnset DateCommentsMed Refill 4ReasonOnset DateCommentsMed Qyolch734ReasonOnset DateComments Med Rodtlp504ReasonOnset DateCommentsMed Ejscty934ReasonOnset Date CommentsMed Lsagjc3412/05/2024ReasonOnset DateCommentsMed Ybpmts9001/06/2025Reason Onset DateCommentsMed Rqpvlj1502/08/2025ReasonOnset DateCommentsMed Refill 03/10/2025ReasonOnset DateCommentsMed Zuittu9904/07/2025ReasonOnset DateComments Med Xlapuu1605/06/2025ReasonOnset DateCommentsMed Ugupsr3306/01/2025ReasonComments Med RefillReasonOnset DateCommentsMed Emjksp2607/04/2025ReasonOnset DateComments Med Wqllpz8308/02/2025ReasonOnset DateCommentsMed Dmodch9909/04/2025 FOR RECORDS PERTAINING TO PATIENTS WHO ARE [...] BE BASED ON THE PRIMARY CLINICAL RECORDS. Member Desk [facility]. provides no warranty or guarantee of the accuracy or completeness of information in this document.
[2025-09-21 15:11] LABS: EBV Early Antigen Ab, IgG <9.0 U/mL (0.0-8.9)
== END 2025-09-20 15:07 | disposition home or self-care (01) ==
LOC: LAB 15:07
PROVIDERS: PCP Family Medicine; Visit Provider Nurse Practitioner Gerontology
DX: G62.9 Polyneuropathy, unspecified (principal); G37.9 Demyelinating disease of central nervous system, unspecified; G93.5 Compression of brain; M35.9 Systemic involvement of connective tissue, unspecified; E55.9 Vitamin D deficiency, unspecified
CPT/HCPCS: 36415; 82652; 86038; 86663; 86665